=== PATIENT | female | born 1970 | race Caucasian/White ===

== ENCOUNTER → 2022-08-26 15:51 | Outpatient (CLI) | payer MEDICAID, SELFPAY ==
--- NOTE | 2022-08-26 15:57 | MM_ITS ---
PROCEDURE INFORMATION: Exam: MG Bilateral Screening 3D Mammography Exam date and time: 08/26/2022 3:51 PM Age: 51 years old Clinical indication: Screening examination TECHNIQUE: Imaging protocol: Bilateral Screening tomosynthesis and 2D mammography including computer-aided detection (CAD) when performed. COMPARISON: No relevant prior studies available. FINDINGS: MAMMOGRAPHY: Breast composition: The breasts are almost entirely fatty. Mass: None. Architectural distortion: None. Calcifications: No suspicious calcifications. Asymmetric density: None. Skin thickening: None. Axillary adenopathy: None. IMPRESSION: No mammographic evidence of malignancy. Annual screening is recommended unless otherwise clinically indicated. ASSESSMENT: BI-RADS Category 1: Negative
== END ==
PROVIDERS: PCP Nurse Practitioner Family; Visit Provider Nurse Practitioner Family
DX: Z12.31 Encounter for screening mammogram for malignant neoplasm of breast (principal)
CPT/HCPCS: 77063; 77067

== ENCOUNTER → 2022-11-05 10:53 | Outpatient (CLI) | payer MEDICAID, SELFPAY ==
--- NOTE | 2022-11-05 11:04 | XR_ITS ---
FINAL REPORT CLINICAL HISTORY: left knee pain FINDINGS: Left knee Three views were obtained. There is no acute fracture or dislocation. There are moderate degenerative changes. No joint effusion is identified. No soft tissue abnormality is identified. IMPRESSION: Moderate degenerative changes. Reviewed, Interpreted and Dictated by Car Orozco III, MD Transcribed by Meryl Oconnor Authenticated and [facility]
--- NOTE | 2022-11-05 11:04 | XR_ITS ---
FINAL REPORT CLINICAL HISTORY: right knne pain FINDINGS: Right knee Three views were obtained. There is no acute fracture or dislocation. There are [id number] degenerative changes. No joint effusion is identified. No soft tissue abnormality is identified. IMPRESSION: Mild to moderate degenerative changes. Reviewed, Interpreted and Dictated by Car Orozco III, MD Transcribed by Meryl Oconnor Authenticated and [facility]
== END ==
PROVIDERS: PCP Nurse Practitioner Family; Visit Provider Orthopaedic Surgery
DX: M25.561 Pain in right knee (principal); M25.562 Pain in left knee
CPT/HCPCS: 73562

== ENCOUNTER → 2023-02-11 13:34 | Outpatient (CLI) | payer MEDICAID, SELFPAY ==
--- NOTE | 2023-02-11 13:38 | XR_ITS ---
FINAL REPORT CLINICAL HISTORY: right knee pain FINDINGS: Left knee Three views were obtained. There is no acute fracture or dislocation. There are mild degenerative changes. No joint effusion is identified. No soft tissue abnormality is identified. IMPRESSION: Mild degenerative changes. Reviewed, Interpreted and Dictated by Car Orozco III, MD Transcribed by Meryl Oconnor Authenticated and [facility]
--- NOTE | 2023-02-11 13:38 | XR_ITS ---
FINAL REPORT CLINICAL HISTORY: left knee pain FINDINGS: Left knee Three views were obtained. There is no acute fracture or dislocation. There are mild degenerative changes. No joint effusion is identified. No soft tissue abnormality is identified. IMPRESSION: Mild degenerative changes. Reviewed, Interpreted and Dictated by Car Orozco III, MD Transcribed by Meryl Oconnor Authenticated and [facility]
== END ==
PROVIDERS: PCP Nurse Practitioner Family; Visit Provider Orthopaedic Surgery
DX: M25.561 Pain in right knee (principal); M25.562 Pain in left knee
CPT/HCPCS: 73562

== ENCOUNTER 2023-08-23 10:27 | Observation (INO) | payer MEDICAID, SELFPAY ==
[2023-08-23] VITALS (14 sets, daily range): BP systolic 78–142; BP diastolic 53–84; PULSE 91–106; RESP 16–22; TEMP 36.7–37.1; O2SAT 98–100; BMI 59.5; BMI 60.2
--- NOTE | 2023-08-23 10:33 | PC.NURSE ---
dr strickland at bedside
--- NOTE | 2023-08-23 10:42 | CT_ITS ---
PROCEDURE INFORMATION: Exam: CT Abdomen And Pelvis With Contrast Exam date and time: 08/23/2023 12:06 PM Age: 52 years old Clinical indication: Patient HX: Rash between breast and under breasts, rash around groin extending down bilateral legs , bb marker is where rash stops , PT stated rash has been on and off for years got worse on Friday and just keeps getting worse; Additional info: Severe rash groin TECHNIQUE: Imaging protocol: Computed tomography of the abdomen and pelvis with contrast. Radiation optimization: All CT scans at this facility use at least one of these dose optimization techniques: automated exposure control; mA and/or kV adjustment per patient size (includes targeted exams where dose is matched to clinical indication); or iterative reconstruction. Contrast material: ISOVUE; Contrast volume: 75 ml; Contrast route: IV; COMPARISON: No relevant prior studies available. FINDINGS: Lungs: No consolidation, lung nodules, or pleural effusions. Diaphragm: Small hiatal hernia. Liver: No mass. No evidence of fat deposition. No surrounding fluid. Gallbladder and bile ducts: No calcified stones or wall thickening. No ductal dilation. Pancreas: No masses. No ductal dilation. Spleen: No splenomegaly. No masses or surrounding fluid. Adrenal glands: No mass. Kidneys and ureters: No hydronephrosis, calcified stones, or masses. Stomach and bowel: No intestinal masses, bowel wall thickening, or abnormal luminal dilatation. Appendix: No evidence of appendicitis. Intraperitoneal space: No free air. No masses or significant fluid collection. Vasculature: No abdominal aortic aneurysm. No other significant abnormalities. Lymph nodes: No enlarged lymph nodes. Urinary bladder: No masses or asymmetric wall thickening. Reproductive: No abnormalities as visualized. Bones/joints: Osteophytes causes [id number] spinal stenosis at T11-12. Spinal stenosis at L4-L5 and L5-S1 due to concentric disc bulge osteophyte complexes, short pedicles, and facet hypertrophy. No acute fractures. No bone lesions. Old right sacrum fracture and partial fusion of the right SI joint. Soft tissues: Skin thickening and stranding of subcutaneous fat in both anterior thighs, left worse than right. Skin thickening continues superiorly into the groins and along the anterior abdominal wall, particularly in the skin folds of the anterior abdominal wall pannus. No abscesses or subcutaneous gas. No muscle masses. No abdominal wall defects. IMPRESSION: 1. Cellulitis along the lower abdominal wall extending into the anterior thighs, especially the proximal left thigh. No abscesses. No soft tissue gas. 2. No other acute findings in the abdomen and pelvis. 3. Iauc-gv-zschjicl spinal stenosis at T11-12, L4-L5, and L5-S1 as described above. 4. Old healed right sacrum fracture and partial fusion of the right sacroiliac joint.
--- NOTE | 2023-08-23 10:44 | HMH.EDGENADL ---
Discharge Plan Disposition Patient Disposition: Home, Self-Care Chief Complaint: Skin/Abscess/Foreign Body Prescriptions Prescriptions: No Action meloxicam 15 mg tablet 15 mg PO DAILY Qty: 30 2RF metoprolol tartrate 25 mg tablet PO hydroxyzine HCl 50 mg tablet PO fluticasone propionate 50 mcg/actuation spray,suspension intranasal Patient Comments: USE 1 SPRAY(S) IN EACH NOSTRIL ONCE DAILY azelastine 137 mcg (0.1 %) aerosol,spray intranasal Patient Comments: USE 1 SPRAY(S) IN EACH NOSTRIL TWICE DAILY NEEDED FOR RHINITIS nystatin [Nystop] 100,000 unit/gram powder topical docusate sodium 100 mg capsule PO Patient Comments: TAKE 1 CAPSULE BY MOUTH ONCE DAILY AT NIGHT NEEDED nystatin 100,000 unit/gram cream topical triamcinolone acetonide 0.1 % cream topical pimecrolimus [Elidel] 1 % cream topical hydroxyzine HCl 25 mg tablet PO Patient Comments: TAKE 1 TABLET BY MOUTH NIGHTLY montelukast 10 mg tablet PO simvastatin 40 mg tablet PO Patient Comments: TAKE 1 TABLET BY MOUTH NIGHTLY ferrous sulfate 325 mg (65 mg iron) tablet PO Patient Comments: TAKE 1 TABLET BY MOUTH ONCE DAILY cetirizine 10 mg tablet PO Referrals Follow up/Referrals: Reina Olmedo APRN [Primary Care Provider] - See instructions Clinical Impressions Clinical Impression: Candidal intertrigo, Cellulitis Instructions Patient Instructions: DI for Skin Abscess Discharge ED Provider: Buddy Mead General Adult HPI General Chief complaint: Skin/Abscess/Foreign Body Stated complaint: rash under stomach, breasts and armpits Time Seen by Provider: 08/23/23 10:30 Mode of Arrival: Wheelchair Source of Information: Patient Limitations: No Limitations Description of Symptoms (Recalled from ER Triage Doc. by RN): Patient reports rash under her abdomen folds, bilateral breasts, and right armpit for a few days. History of Present Illness HPI narrative: Patient is a 52-year-old female with past medical history of chronic intermittent intertriginous fungal infections who presents emergency department for evaluation of rash. Onset was acute, over the last few days, in her intertriginous areas about her groin, pannus, inframammary folds, right armpit. It is gotten progressively worse and this is the worst it has ever been . Patient has used nystatin cream at home which she ran out, is also covered in Vaseline for which symptoms have been refractory. She also has a history of insulin-dependent diabetes. Related Data Home Medications Medication Instructions Recorded Confirmed azelastine 137 mcg (0.1 %) nasal intranasal 05/22/23 05/22/23 spray aerosol cetirizine 10 mg tablet mg PO 05/22/23 05/22/23 docusate sodium 100 mg capsule mg PO 05/22/23 05/22/23 ferrous sulfate 325 mg (65 mg mg PO 05/22/23 05/22/23 iron) tablet fluticasone propionate 50 intranasal 05/22/23 05/22/23 mcg/actuation nasal spray,suspension hydroxyzine HCl 25 mg tablet mg PO 05/22/23 05/22/23 hydroxyzine HCl 50 mg tablet mg PO 05/22/23 05/22/23 metoprolol tartrate 25 mg tablet mg PO 05/22/23 05/22/23 montelukast 10 mg tablet mg PO 05/22/23 05/22/23 nystatin 100,000 unit/gram topical topical 05/22/23 05/22/23 cream nystatin 100,000 unit/gram topical topical 05/22/23 05/22/23 powder (Nystop) pimecrolimus 1 % topical cream applic topical 05/22/23 05/22/23 (Elidel) simvastatin 40 mg tablet mg PO 05/22/23 05/22/23 triamcinolone acetonide 0.1 % applic topical 05/22/23 05/22/23 topical cream Previous Rx's Medication Instructions Recorded meloxicam 15 mg tablet 15 mg PO DAILY #30 tabs 11/05/22 Allergies Allergy/AdvReac Type Severity Reaction Status Date / Time No Known Allergies Allergy Verified 04/29/23 10:36 [facility] Disclaimer: The information contained in this section may have been updated after the patient was seen, as this information can be updated by other users. Social History Smoking Status: Never smoker alcohol intake: never current occupational status: other Travel in the last 8 weeks: None ROS Obtained: Yes Systems reviewed as appropriate & no additional complaints except as documented Physical Exam General General appearance: alert and in no apparent distress Head Head exam: atraumatic and normocephalic Eye Eye exam: Present PERRL ENT ENT exam: Present mucous membranes moist Neck Neck exam: Present normal inspection Chest Chest inspection: Present normal inspection and symmetric chest wall rise Respiratory Respiratory exam: Absent respiratory distress Cardiovascular Cardiovascular exam: Present normal rhythm and tachycardia Abdominal Exam Abdominal exam: Present soft; Absent tenderness Extremities Exam Extremities exam: Present normal inspection Neurological Exam Neurological exam: Present alert Psychiatric Psychiatric exam: Present normal affect Skin Skin exam: Present warm and dry Medical Decision Making Hernan Inquiry Pt receiving controlled substance: No Vital Signs: 08/23/23 10:29 08/23/23 10:39 08/23/23 10:40 Temperature 98.2 F Temperature Source Oral Pulse Rate Pulse Rate [Radial] 106 H Respiratory Rate 16 Blood Pressure 78/53 L 142/84 H Blood Pressure [Right Arm] 142/84 H Blood Pressure Mean 59 94 Blood Pressure Mean [Right Arm] 103 Blood Pressure Source [Right Arm] Automatic Cuff Blood Pressure Position [Right Arm] Sitting 02 Sat by Pulse Oximetry 100 Oxygen Delivery Method Room Air 08/23/23 10:51 08/23/23 11:00 08/23/23 12:30 Temperature Temperature Source Pulse Rate 91 H Pulse Rate [Radial] Respiratory Rate Blood Pressure 131/84 137/60 109/64 L Blood Pressure [Right Arm] Blood Pressure Mean 94 99 Blood Pressure Mean [Right Arm] Blood Pressure Source [Right Arm] Blood Pressure Position [Right Arm] 02 Sat by Pulse Oximetry 100 Oxygen Delivery Method 08/23/23 12:30 08/23/23 13:00 Temperature Temperature Source Pulse Rate 93 H 94 H Pulse Rate [Radial] Respiratory Rate Blood Pressure 109/64 L 125/71 Blood Pressure [Right Arm] Blood Pressure Mean 79 84 Blood Pressure Mean [Right Arm] Blood Pressure Source [Right Arm] Blood Pressure Position [Right Arm] 02 Sat by Pulse Oximetry Oxygen Delivery Method Lab Data Lab Results 08/23/23 10:42: VBG pH 7.33, VBG pCO2 51.8 H, VBG pO2 26.3 L, VBG HCO3 26.6, VBG Total CO2 28.2 H, VBG O2 Saturation 47.7 L, VBG Base Excess 0.7, VBG Lactic Acid 3.2 H 08/23/23 10:50: WBC 11.3 H, RBC 5.41 H, Hgb 15.2, Hct 47.2 H, MCV 87.2, MCH 28.1, MCHC 32.3, RDW 14.8, Plt Count 334, MPV 7.5, Neut % (Auto) 76.1, Lymph % (Auto) 16.2, [place] % (Auto) 6.4, Eos % (Auto) 0.9, Baso % (Auto) 0.4, Neut # (Auto) 8.6 H, Lymph # (Auto) 1.8, [place] # (Auto) 0.7, Eos # (Auto) 0.1, Baso # (Auto) 0.1, Sodium 134 L, Potassium 4.1, Chloride 95 L, Carbon Dioxide 28, Anion Gap 15.1 H, BUN 13, Creatinine 1.00, Estimated Creat Clear 48, Estimated GFR 59, Est GFR ( Amer) 71, Glucose 196 H, Calcium 9.3, Total Bilirubin 1.0, AST 26, ALT 26, Alkaline Phosphatase 75, Total Protein 7.0, Albumin 3.7, Globulin 3.3 H, Albumin/Globulin Ratio 1.1 08/23/23 10:50 08/23/23 10:50 Orders (Tests/Meds): ED MEDICATIONS Discontinued Medications Generic Name Dose Route Start Last Admin Trade Name Freq PRN Reason Stop Dose Admin Lactated Ringer's 1,000 mls @ 999 mls/hr 08/23/23 10:43 08/23/23 10:54 Lactated Ringer's 1000 Ml Bag IV 08/23/23 11:43 999 mls/hr .Q1H1M ONE Administration Iopamidol 75 ml 08/23/23 12:11 08/23/23 12:12 Iopamidol-370 (76%);100ml Bottle IV 08/23/23 12:12 75 ml ONCE ONE Administration Nystatin 1 gm 08/23/23 10:51 08/23/23 11:09 Nystatin Topical Powder 30gm TP 08/23/23 10:52 1 gm ONCE ONE Administration Sodium Chloride 10 ml 08/23/23 12:11 08/23/23 12:12 Sodium Chloride 0.9% 10ml Syr (Rad Only) IV 08/23/23 12:12 10 ml ONCE ONE Administration Trimethoprim/Sulfamethoxazole 1 each 08/23/23 10:52 08/23/23 11:09 Sulfa/Trimethoprim 1 Tablet PO 08/23/23 10:53 1 each ONCE ONE Administration ORDERS Category Date Time Status CT abdomen pelvis w con Stat Cat Scan 08/23/23 10:42 Completed CBC w/Auto Diff [Complete Blood Count Auto Diff] Stat Lab 08/23/23 10:50 Completed CMP [Comprehensive Metabolic Panel] Stat Lab 08/23/23 10:50 Completed Blood Culture Stat Micro 08/23/23 12:31 Received VBG [Venous Blood Gas] Stat RT 08/23/23 10:42 Completed Medical Decision Narrative: In summary patient is a 52-year-old female past medical history described above presents emergency department for evaluation of severe intertrigo in the setting of insulin-dependent diabetes. Patient is hemodynamically stable nontoxic-appearing upon arrival, afebrile, slight tachycardia. Patient does not have any pain out of proportion to exam however does have a severe rash in all the intertriginous areas of her pelvis, pannus, inframammary folds, right axilla. Screening for deep space infection in the pelvis given body habitus will be conducted with CT abdomen pelvis IV contrast. Crystalloid bolus will be administered. Initial interventions include cleaning all wounds, drying all wounds, application of topical nystatin powder, oral Bactrim for MRSA coverage in the setting of intertrigo with severe skin breakdown. Workup reviewed by me, hematologic labs are nonactionable, compensated acid-base status, no critical electrolyte abnormalities, glucose 196, no MEERA, no significant leukocytosis. CT imaging no deep space infection, evidence of cellulitis is present in the anterior thighs, no abscesses or soft tissue gas. Given intertrigo, cellulitis, need for wound care case was discussed with hospital medicine who admit the patient to her service for continued evaluation at this time. Critical Care Critical Care Time Critical Care Time: No
[2023-08-23] MEDS: LACTATED RINGERS 1000ML 1,000 ML 999 ML IV (10:54)
[2023-08-23 11:07] LABS: VBG Base Excess 0.7 mmol/L (-2.4-2.3); VBG HCO3 26.6 mmol/L (23-30); VBG Oxygen Saturation 47.7 % (50-70); VBG PH 7.33 mmol/L (7.31-7.41); VBG PO2 26.3 mmol/L (28-40); VBG Total CO2 28.2 mmol/L (23-27)
[2023-08-23 11:09] LABS: Lactate Venous 3.2 mmol/L (0.4-2.0); VBG PCO2 51.8 mmol/L (35-51)
[2023-08-23] MEDS: SULFA/TRIMETHOPRIM 1 TABLET 1 EACH PO (11:09)
[2023-08-23] MEDS: NYSTATIN TOPICAL POWDER 30GM TP (11:09)
--- NOTE | 2023-08-23 11:19 | PC.NURSE ---
PT BATHED AT THIS TIME
[2023-08-23 11:24] LABS: Basophils # 0.1 K/mm3 (0-0.2); Basophils % 0.4 % (0.1-2.0); Eosinophils # 0.1 K/mm3 (0.0-0.4); Eosinophils % 0.9 % (0.1-12.0); Hematocrit 47.2 % (37.0-47.0); Hemoglobin 15.2 g/dL (12.2-16.2); Lymphocytes # 1.8 K/mm3 (0.7-4.5); Lymphocytes % 16.2 % (10-50); Mean Corpuscular HGB Conc 32.3 g/dL (31.8-35.4); Mean Corpuscular Hemoglobin 28.1 pg (27.0-31.2); Mean Corpuscular Volume 87.2 fl (81-99); Mean Platelet Volume 7.5 fl (7.4-10.4); Monocytes # 0.7 K/mm3 (0.1-1.0); Monocytes % 6.4 % (1.7-9.3); Neutrophils # 8.6 K/mm3 (1.8-7.8); Neutrophils % 76.1 % (37.0-80.0); Platelet Count 334 K/mm3 (142-424); Red Blood Count 5.41 M/mm3 (4.20-5.40); Red Cell Distribution Width 14.8 % (11.5-17.5); White Blood Count 11.3 K/mm3 (4.8-10.8)
[2023-08-23 11:28] LABS: Alanine Aminotransferase 26 U/L (12-78); Albumin Level 3.7 g/dl (3.5-5.0); Albumin/Globulin Ratio 1.1 (1.1-1.8); Alkaline Phosphatase 75 U/L (38-126); Anion Gap 15.1 mEq/L (5-15); Aspartate Amino Transferase 26 U/L (14-36); Blood Urea Nitrogen 13 mg/dl (7-17); Calcium 9.3 mg/dl (8.4-10.2); Carbon Dioxide 28 mmol/L (22.0-30.0); Chloride 95 mmol/L (98-107); Creatinine Clearance Estimated 48 mL/min (50-200); Estimated Glomerular Filt Rate 59 ml/min (>60); GFR (African American) 71 ML/MIN (>60); Globulin 3.3 g/dL (1.3-3.2); Glucose 196 mg/dl (74-100); Potassium 4.1 mmoL/L (3.5-5.1); Sodium 134 mmol/L (136-145)
--- NOTE | 2023-08-23 11:55 | PC.NURSE ---
Pt gone to RAD via wheelchair
--- NOTE | 2023-08-23 12:11 | PC.NURSE ---
PT RETURNED FROM CT
[2023-08-23] MEDS: SODIUM CHLORIDE 0.9% 10ML SYR (RAD ONLY) 10 ML IV (12:12)
[2023-08-23] MEDS: IOPAMIDOL-370 (76%);100ML BOTTLE 75 ML IV (12:12)
--- NOTE | 2023-08-23 13:35 | PC.NURSE ---
DR REBOLLEDO MESSAGING DR GRAHAM
--- NOTE | 2023-08-23 13:51 | PC.NURSE ---
DR REBOLLEDO AT BEDSIDE
--- NOTE | 2023-08-23 14:35 | PC.NURSE ---
DR REBOLLEDO SPEAKING WITH DR GRAHAM
--- NOTE | 2023-08-23 14:45 | PC.NURSE ---
DR GRAHAM AT BEDSIDE
--- NOTE | 2023-08-23 14:54 | PC.NURSE ---
HOT WALKER NOTIFIED OF ADMISSION
[2023-08-23 15:08] LABS: Reflex Lactic Add Lactic Reflex
--- NOTE | 2023-08-23 15:10 | PC.NURSE ---
REPORT CALLED TO JASSON DIAZ
--- NOTE | 2023-08-23 15:26 | PC.NURSE ---
arrived by w/c from ED
[2023-08-23] MEDS: VANCOMYCIN CONSULT REQUEST 1 EACH NOTAPPLIC (15:31)
[2023-08-23 15:58] LABS: Lactic Acid Follow Up (RFLX 1) 2.2 mmol/L (0.7-2.1)
[2023-08-23] MEDS: HEPARIN SODIUM 5,000 UNIT/ML VIAL 5000 UNIT SQ ×2 (16:16→23:57)
[2023-08-23] MEDS: VANCOMYCIN HCL 2,500 MG in 0.9 % SODIUM CHLORIDE 250 ML 125 MG IV (16:16)
[2023-08-23] MEDS: FLUCONAZOLE 100MG TABLET 200 MG PO (16:18)
--- NOTE | 2023-08-23 16:41 | PC.WOUNDNOTE ---
ABDOMINAL FOLD/INNER THIGH AREA UNDER BREASTS RIGHT ARMPIT
[2023-08-23] MEDS: humaLOG 100 UNITS/ML 10ML VIAL (SSI) SQ ×2 (16:52→20:19)
[2023-08-23 16:56] LABS: POC Glucose,Bedside 203 (70-110)
--- NOTE | 2023-08-23 17:04 | EXP.HP ---
History of Present Illness *Admission Date: 08/23/23 *Reason for visit:: skin rash *History of present illness: Patient is a 52-year-old female with morbid obesity, diabetes mellitus who presents to the hospital due to red rash in bilateral groin area and abdominal folds, under breast. According the patient her rash has been getting worse for past 1 week, she ran out of nystatin at home. Patient mentions she has associated itching, redness. She denies bleeding, fevers chills. Patient denied chest pain shortness of breath nausea vomiting diarrhea constipation dysuria fevers and chills. Patient mentions she has been treated for Odalis infection of her skin in the past and this episode is worse than her previous episodes. [facility] Disclaimer: The information contained in this section may have been updated after the patient was seen, as this information can be updated by other users. Social History Smoking Status: Never smoker alcohol intake: never current occupational status: other Travel in the last 8 weeks: None Review of Systems Review of Systems Review of systems:: pertinent systems reviewed and negative unless documented below Meds Home Medications and Allergies Home Medications Medication Instructions Recorded Confirmed Type meloxicam 15 mg tablet 15 mg PO DAILY #30 tabs 11/05/22 08/23/23 Rx azelastine 137 mcg (0.1 %) nasal 137 mcg intranasal NEEDED PRN 05/22/23 08/23/23 History spray aerosol ALLERGIES cetirizine 10 mg tablet 10 mg PO DAILY 05/22/23 08/23/23 History docusate sodium 100 mg capsule 100 mg PO DAILY 05/22/23 08/23/23 History ferrous sulfate 325 mg (65 mg 325 mg PO DAILY 05/22/23 08/23/23 History iron) tablet fluticasone propionate 50 50 mcg intranasal NEEDED PRN 05/22/23 08/23/23 History mcg/actuation nasal ALLERGIES spray,suspension hydroxyzine HCl 25 mg tablet 25 mg PO DAILY 05/22/23 08/23/23 History hydroxyzine HCl 50 mg tablet 50 mg PO DAILY SWEATING 05/22/23 08/23/23 History metoprolol tartrate 25 mg tablet 25 mg PO BID 05/22/23 08/23/23 History montelukast 10 mg tablet 10 mg PO DAILY 05/22/23 08/23/23 History nystatin 100,000 unit/gram topical 100,000 unit topical NEEDED PRN 05/22/23 08/23/23 History powder (Nystop) Itching pimecrolimus 1 % topical cream 1 applic topical NEEDED PRN 05/22/23 08/23/23 History (Elidel) Itching simvastatin 40 mg tablet 40 mg PO HS 05/22/23 08/23/23 History triamcinolone acetonide 0.1 % 0.1 applic topical NEEDED PRN 05/22/23 08/23/23 History topical cream Itching citalopram 40 mg tablet 40 mg PO DAILY 08/23/23 08/23/23 History duloxetine 60 mg capsule,delayed 60 mg PO BID 08/23/23 08/23/23 History release glimepiride 1 mg tablet 1 mg PO DAILY 08/23/23 08/23/23 History levothyroxine 137 mcg tablet 137 mcg PO DAILY 08/23/23 08/23/23 History losartan 50 mg-hydrochlorothiazide 50 tab PO BID 08/23/23 08/23/23 History 12.5 mg tablet omeprazole 40 mg capsule,delayed 40 mg PO DAILY 08/23/23 08/23/23 History release tirzepatide 5 mg/0.5 mL 7.5 mg SQ WEEKLY 08/23/23 08/23/23 History subcutaneous pen injector (Francisco) trazodone 50 mg tablet 50 mg PO NEEDED PRN Sleep 08/23/23 08/23/23 History New Prescriptions to Start Prescriptions: Allergies Allergy/AdvReac Type Severity Reaction Status Date / Time diaz AdvReac Mild Rash Verified 08/23/23 15:39 egg AdvReac Mild Rash Verified 08/23/23 15:39 hazelnut AdvReac Mild Rash Verified 08/23/23 15:39 milk AdvReac Mild Rash Verified 08/23/23 15:39 peanut AdvReac Mild Rash Verified 08/23/23 15:39 walnut AdvReac Mild Rash Verified 08/23/23 15:39 Exam Data for Last 24 hours Vital signs and Labs for Last 24 Hours: Temp Pulse Resp BP Pulse Ox O2 Del Method 98.1 F 101 H 22 139/81 98 Room Air 08/23/23 15:26 08/23/23 15:26 08/23/23 15:26 08/23/23 15:26 08/23/23 15:26 08/23/23 15:26 Laboratory Results - last 24 hr 08/23/23 10:42: VBG pH 7.33, VBG pCO2 51.8 H, VBG pO2 26.3 L, VBG HCO3 26.6, VBG Total CO2 28.2 H, VBG O2 Saturation 47.7 L, VBG Base Excess 0.7, VBG Lactic Acid 3.2 H 08/23/23 10:50: WBC 11.3 H, RBC 5.41 H, Hgb 15.2, Hct 47.2 H, MCV 87.2, MCH 28.1, MCHC 32.3, RDW 14.8, Plt Count 334, MPV 7.5, Neut % (Auto) 76.1, Lymph % (Auto) 16.2, [place] % (Auto) 6.4, Eos % (Auto) 0.9, Baso % (Auto) 0.4, Neut # (Auto) 8.6 H, Lymph # (Auto) 1.8, [place] # (Auto) 0.7, Eos # (Auto) 0.1, Baso # (Auto) 0.1, Sodium 134 L, Potassium 4.1, Chloride 95 L, Carbon Dioxide 28, Anion Gap 15.1 H, BUN 13, Creatinine 1.00, Estimated Creat Clear 48, Estimated GFR 59, Est GFR ( Amer) 71, Glucose 196 H, Calcium 9.3, Total Bilirubin 1.0, AST 26, ALT 26, Alkaline Phosphatase 75, Total Protein 7.0, Albumin 3.7, Globulin 3.3 H, Albumin/Globulin Ratio 1.1 08/23/23 15:40: Lactate 2.2 H 08/23/23 16:31: POC Glucose 203 H I & O for Last 24 hours: Intake & Output 08/20/23 08/21/23 08/22/23 08/23/23 23:59 23:59 23:59 23:59 Weight 139.054 kg Constitutional Constitutional: no acute distress *Routine HEENT Exam Head: Present normocephalic Eye: Present EOMI and PERRL ENT: Present mucous membranes moist *Routine Neck Exam Neck: Present supple; Absent lymphadenopathy *Routine Respiratory Exam Respiratory: Present CTA bilaterally *Routine Cardiovascular Exam Cardiovascular: Present RRR *Routine Abdominal Exam Abdominal: Present soft and normoactive bowel sounds; Absent tenderness *Routine Rectal Exam Rectal:: deferred *Routine Genitalia Exam Genitalia:: deferred *Routine Extremities Exam Extremities: Absent cyanosis, clubbing or edema *Routine Skin Exam Skin: Present warm and rash Comments: - Generalized skin rash in bilateral inguinal folds, abdominal folds, under breast, patient was examined in the presence of hazard mitigation officer *Routine Neurological Exam Neurological: Present alert and oriented X3 Assessment and Plan *Assessment and plan (1) Cellulitis: Status: Acute Category: Medical Code(s): L03.90 - Cellulitis, unspecified (2) Candidal intertrigo: Status: Acute Category: Medical Code(s): B37.2 - Candidiasis of skin and nail (3) Diabetes: Status: Acute Category: Medical Code(s): E11.9 - Type 2 diabetes mellitus without complications (4) HTN (hypertension): Status: Acute Category: Medical Code(s): I10 - Essential (primary) hypertension Plan Patient is a 52-year-old female with morbid obesity, diabetes mellitus who presents to the hospital due to red rash in bilateral groin area and abdominal folds, under breast. According the patient her rash has been getting worse for past 1 week, she ran out of nystatin at home. Patient mentions she has associated itching, redness. She denies bleeding, fevers chills. Patient denied chest pain shortness of breath nausea vomiting diarrhea constipation dysuria fevers and chills. Patient mentions she has been treated for Odalis infection of her skin in the past and this episode is worse than her previous episodes. Assessment and plan Cellulitis of bilateral inguinal area, anterior abdominal wall Candidal intertrigo Start IV vancomycin Start oral fluconazole Start topical ketoconazole As needed Benadryl for itching Diabetes mellitus Insulin sliding scale Morbid obesity Counseled on weight loss Hypertension Hyperlipidemia Resume home metoprolol, losartan/HCTZ, simvastatin DVT prophylaxis-heparin
[2023-08-23 17:45] LABS: Reflex Lactic (2 hrs) Add Lactic Reflex
[2023-08-23 18:09] LABS: Lactic Acid Follow up (RFLX 2) 1.8 mmol/L (0.7-2.1)
--- NOTE | 2023-08-23 18:28 | PC.NURSE ---
Pt new admit from ER. Patient started on abx and antifungals and states being in less pain than she was
[2023-08-23] MEDS: PRAVASTATIN 40MG TAB 80 MG PO (20:20)
[2023-08-23] MEDS: METOPROLOL TARTRATE 25MG TABLET 25 MG PO (20:21)
[2023-08-23] MEDS: PANTOPRAZOLE 40MG TABLET 40 MG PO (20:22)
[2023-08-23 21:05] LABS: POC Glucose,Bedside 215 (70-110)
[2023-08-24] MEDS: VANCOMYCIN HCL 1,000 MG in 0.9 % SODIUM CHLORIDE 250 ML 125 MG IV (03:32)
--- NOTE | 2023-08-24 03:46 | PC.NURSE ---
Pt is alert and oriented x4 and currently tolerating RA well. Pt is tolerating antibiotic therapy well and remains excoriated under bilateral abdominal folds and under breasts. Pt requested bed bath, staff x2 gave pt bath. Pt denies pain and needs, no other acute changes this shift.
[2023-08-24 04:00] VITALS: BP 103/56; PULSE 80; RESP 18; TEMP 37; O2SAT 96; BMI 60.2
[2023-08-24 05:56] LABS: POC Glucose,Bedside 141 (70-110)
[2023-08-24 07:24] LABS: Basophils # 0.1 K/mm3 (0-0.2); Basophils % 0.6 % (0.1-2.0); Eosinophils # 0.2 K/mm3 (0.0-0.4); Eosinophils % 2.6 % (0.1-12.0); Hematocrit 41.5 % (37.0-47.0); Lymphocytes # 2.5 K/mm3 (0.7-4.5); Lymphocytes % 27.4 % (10-50); Mean Corpuscular HGB Conc 32.8 g/dL (31.8-35.4); Mean Corpuscular Hemoglobin 28.2 pg (27.0-31.2); Mean Corpuscular Volume 85.9 fl (81-99); Mean Platelet Volume 8.1 fl (7.4-10.4); Monocytes # 0.7 K/mm3 (0.1-1.0); Monocytes % 7.1 % (1.7-9.3); Neutrophils # 5.8 K/mm3 (1.8-7.8); Neutrophils % 62.4 % (37.0-80.0); Platelet Count 308 K/mm3 (142-424); Red Blood Count 4.84 M/mm3 (4.20-5.40); Red Cell Distribution Width 14.9 % (11.5-17.5); White Blood Count 9.3 K/mm3 (4.8-10.8)
[2023-08-24 07:26] LABS: Chloride 100 mmol/L (98-107)
[2023-08-24 07:27] LABS: Sodium 133 mmol/L (136-145)
[2023-08-24 07:29] LABS: Blood Urea Nitrogen 12 mg/dl (7-17); Creatinine Clearance Estimated 51 mL/min (50-200); Estimated Glomerular Filt Rate 66 ml/min (>60); GFR (African American) 80 ML/MIN (>60)
[2023-08-24 07:30] LABS: Calcium 8.6 mg/dl (8.4-10.2); Carbon Dioxide 29 mmol/L (22.0-30.0); Glucose 137 mg/dl (74-100)
[2023-08-24 08:00] VITALS: BP 115/56; PULSE 89; RESP 17; TEMP 36.9; O2SAT 97
[2023-08-24] MEDS: HEPARIN SODIUM 5,000 UNIT/ML VIAL 5000 UNIT SQ (08:07)
[2023-08-24 08:25] LABS: Hemoglobin 13.7 g/dL (12.2-16.2)
[2023-08-24] MEDS: FLUTICASONE PROP 50MCG NASAL SPRAY 16GM 1 SPRAY NS (08:35)
[2023-08-24] MEDS: IRBESARTAN 75MG TABLET 75 MG PO (08:37)
[2023-08-24] MEDS: hydroCHLOROthiazide 12.5MG CAPSULE 12.5 MG PO (08:37)
[2023-08-24] MEDS: LEVOTHYROXINE 137MCG (0.137MG) TAB 137 MCG PO (08:37)
[2023-08-24] MEDS: FERROUS SULFATE 325MG TABLET 325 MG PO (08:37)
[2023-08-24] MEDS: CITALOPRAM 40MG TABLET 40 MG PO (08:37)
[2023-08-24] MEDS: METOPROLOL TARTRATE 25MG TABLET 25 MG PO (08:38)
[2023-08-24] MEDS: DULOXETINE 30MG CAPSULE.DR 60 MG PO (08:38)
[2023-08-24] MEDS: LORATADINE 10MG TABLET 10 MG PO (08:38)
--- NOTE | 2023-08-24 08:41 | P.CONPHA_ITS ---
Pharmacy Consult Date: 08/24/23 Time: 08:42 Referring provider: DR GRAHAM Reason for Consult:: VANCOMYCIN DOSING CONSULT Allergies Allergy/AdvReac Type Severity Reaction Status Date / Time diaz AdvReac Mild Rash Verified 08/23/23 15:39 egg AdvReac Mild Rash Verified 08/23/23 15:39 hazelnut AdvReac Mild Rash Verified 08/23/23 15:39 milk AdvReac Mild Rash Verified 08/23/23 15:39 peanut AdvReac Mild Rash Verified 08/23/23 15:39 walnut AdvReac Mild Rash Verified 08/23/23 15:39 Home Medications Medication Instructions Recorded Confirmed Type meloxicam 15 mg tablet 15 mg PO DAILY #30 tabs 11/05/22 08/23/23 Rx azelastine 137 mcg (0.1 %) nasal 137 mcg intranasal NEEDED PRN 05/22/23 08/23/23 History spray aerosol ALLERGIES cetirizine 10 mg tablet 10 mg PO DAILY 05/22/23 08/23/23 History docusate sodium 100 mg capsule 100 mg PO DAILY 05/22/23 08/23/23 History ferrous sulfate 325 mg (65 mg 325 mg PO DAILY 05/22/23 08/23/23 History iron) tablet fluticasone propionate 50 50 mcg intranasal NEEDED PRN 05/22/23 08/23/23 History mcg/actuation nasal ALLERGIES spray,suspension hydroxyzine HCl 50 mg tablet 100 mg PO HS 05/22/23 08/24/23 History metoprolol tartrate 25 mg tablet 25 mg PO BID 05/22/23 08/23/23 History montelukast 10 mg tablet 10 mg PO DAILY 05/22/23 08/23/23 History nystatin 100,000 unit/gram topical 100,000 unit topical NEEDED PRN 05/22/23 08/23/23 History powder (Nystop) Itching pimecrolimus 1 % topical cream 1 applic topical NEEDED PRN 05/22/23 08/23/23 History (Elidel) Itching simvastatin 40 mg tablet 40 mg PO HS 05/22/23 08/23/23 History triamcinolone acetonide 0.1 % 0.1 applic topical NEEDED PRN 05/22/23 08/23/23 History topical cream Itching citalopram 40 mg tablet 40 mg PO DAILY 08/23/23 08/23/23 History duloxetine 60 mg capsule,delayed 60 mg PO BID 08/23/23 08/23/23 History release glimepiride 1 mg tablet 1 mg PO DAILY 08/23/23 08/23/23 History levothyroxine 137 mcg tablet 137 mcg PO DAILY 08/23/23 08/23/23 History losartan 50 mg-hydrochlorothiazide 50 tab PO BID 08/23/23 08/23/23 History 12.5 mg tablet omeprazole 40 mg capsule,delayed 40 mg PO DAILY 08/23/23 08/23/23 History release tirzepatide 5 mg/0.5 mL 7.5 mg SQ WEEKLY 08/23/23 08/23/23 History subcutaneous pen injector (Francisco) trazodone 50 mg tablet 50 mg PO NEEDED PRN Sleep 08/23/23 08/23/23 History New Prescriptions to Start Prescriptions: Height: 1.52 m Weight: 139.253 kg Laboratory Results:: Laboratory Results - last 24 hr 08/23/23 10:42: VBG pH 7.33, VBG pCO2 51.8 H, VBG pO2 26.3 L, VBG HCO3 26.6, VBG Total CO2 28.2 H, VBG O2 Saturation 47.7 L, VBG Base Excess 0.7, VBG Lactic Acid 3.2 H 08/23/23 10:50: WBC 11.3 H, RBC 5.41 H, Hgb 15.2, Hct 47.2 H, MCV 87.2, MCH 28.1, MCHC 32.3, RDW 14.8, Plt Count 334, MPV 7.5, Neut % (Auto) 76.1, Lymph % (Auto) 16.2, [place] % (Auto) 6.4, Eos % (Auto) 0.9, Baso % (Auto) 0.4, Neut # (Auto) 8.6 H, Lymph # (Auto) 1.8, [place] # (Auto) 0.7, Eos # (Auto) 0.1, Baso # (Auto) 0.1, Sodium 134 L, Potassium 4.1, Chloride 95 L, Carbon Dioxide 28, Anion Gap 15.1 H, BUN 13, Creatinine 1.00, Estimated Creat Clear 48, Estimated GFR 59, Est GFR ( Amer) 71, Glucose 196 H, Calcium 9.3, Total Bilirubin 1.0, AST 26, ALT 26, Alkaline Phosphatase 75, Total Protein 7.0, Albumin 3.7, Globulin 3.3 H, Albumin/Globulin Ratio 1.1 08/23/23 15:40: Lactate 2.2 H 08/23/23 16:31: POC Glucose 203 H 08/23/23 17:50: Lactate 1.8 08/23/23 20:19: POC Glucose 215 H 08/24/23 05:43: POC Glucose 141 H 08/24/23 06:23: WBC 9.3, RBC 4.84, Hgb 13.7, Hct 41.5, MCV 85.9, MCH 28.2, MCHC 32.8, RDW 14.9, Plt Count 308, MPV 8.1, Neut % (Auto) 62.4, Lymph % (Auto) 27.4, [place] % (Auto) 7.1, Eos % (Auto) 2.6, Baso % (Auto) 0.6, Neut # (Auto) 5.8, Lymph # (Auto) 2.5, [place] # (Auto) 0.7, Eos # (Auto) 0.2, Baso # (Auto) 0.1, Sodium 133 L, Potassium 4.0, Chloride 100, Carbon Dioxide 29, Anion Gap 8.0, BUN 12, Creatinine 0.90, Estimated Creat Clear 51, Estimated GFR 66, Est GFR ( Amer) 80, Glucose 137 H D, Calcium 8.6 Assessment and Plan Assessment and plan all Dx Assessment and Plan for all problems:: Pharmacokinetic dosing service Objective: Age: 52 yo Serum creatinine: 0.9 mg/dL Height: 59.8 Inches Weight (kg): 139 Diagnosis: CELLULITIS Assessment: IBW (kg): 45.35 Dosing wt(kg): 139 Estimated Creatinine clearance (ml/min): 97.8 CRCL method: Cockcroft and Gault using adjusted body weight Drug selected: Vancomycin Vd (liters): 104.2 (factor used: 0.75 L/kg) Angelo (hr-1): 0.086 Half life (hrs): 8.06 CLvanco=?? 8.961 L/hr Recommended dose: 2500 mg Interval: 12 hrs Infusion time (hrs): 2.0 Predicted peak (mcg/mL): 34.2 Predicted trough (mcg/mL): 14.47 Total body weight is being used for vancomycin dosing. Recommendations: Give Vancomycin 2500 mg q 12 hrs with an expected Cpeak of 34.2 mcg/ml and an expected Ctrough of 14.47 mcg/ml AUC 0-24 /JAMES Data: JAMES 0.5 mcg/mL:?? AUC/JAMES:? 1115.9 JAMES 1.0 mcg/mL:?? AUC/JAMES:? 558.0 --------- JAMES 1.5 mcg/mL:?? AUC/JAMES:? 372.0 JAMES 2.0 mcg/mL:?? AUC/JAMES:? 279.0 Thank you for the consult
[2023-08-24] MEDS: KETOCONAZOLE 2% TP (08:50)
--- NOTE | 2023-08-24 10:24 | HMH.PHAINT1 ---
Pharmacy Intervention Comments: MEDICATION RECONCILIATION COMPLETE USING EXTERNAL PHARMACY FILL HISTORY.
[2023-08-24] MEDS: humaLOG 100 UNITS/ML 10ML VIAL (SSI) SQ (11:10)
[2023-08-24 11:20] LABS: POC Glucose,Bedside 227 (70-110)
--- NOTE | 2023-08-24 11:32 | P.DS_ITS ---
General Admission date:: 08/23/23 Discharge date: 08/24/23 HPI HPI HPI: Patient is a 52-year-old female with morbid obesity, diabetes mellitus who presents to the hospital due to red rash in bilateral groin area and abdominal folds, under breast. According the patient her rash has been getting worse for past 1 week, she ran out of nystatin at home. Patient mentions she has associated itching, redness. She denies bleeding, fevers chills. Patient denied chest pain shortness of breath nausea vomiting diarrhea constipation dysuria fevers and chills. Patient mentions she has been treated for Odalis infection of her skin in the past and this episode is worse than her previous episodes. Hospital Course Hospital Course Hospital Course: Patient is a 52-year-old female with morbid obesity, diabetes mellitus who presents to the hospital due to red rash in bilateral groin area and abdominal folds, under breast. According the patient her rash has been getting worse for past 1 week, she ran out of nystatin at home. Patient mentions she has associated itching, redness. She denies bleeding, fevers chills. Patient denied chest pain shortness of breath nausea vomiting diarrhea constipation dysuria fevers and chills. Patient mentions she has been treated for Odalis infection of her skin in the past and this episode is worse than her previous episodes. Cellulitis of bilateral inguinal area, anterior abdominal wall - improving Candidal intertrigo - improving Patient was started on IV vancomycin and oral fluconzole with significant improvement in rash, patient is transitioned to oral doxyccline and fluconzole with topical ketoconazole cream, prescriptions sent to patient pharmacy, patient will be discharged in stable condition, patient agreed with the discharge plan. On the date of discharge, the patient reported feeling stable. The patient was found not to be in any acute distress, and no new abnormalities on physical examination. Further, the patient expressed appropriate understanding of, and agreement with, the discharge recommendations, medications, and plan. Time spent 37 mins Exam Data for Last 24 hours Vital signs and Labs for Last 24 Hours: Temp Pulse Resp BP Pulse Ox O2 Del Method 98.4 F 89 17 115/56 L 97 Room Air 08/24/23 08:00 08/24/23 08:00 08/24/23 08:00 08/24/23 08:00 08/24/23 08:00 08/24/23 10:51 Laboratory Results - last 24 hr 08/23/23 10:50: WBC 11.3 H, RBC 5.41 H, Hgb 15.2, Hct 47.2 H, MCV 87.2, MCH 28.1 , MCHC 32.3, RDW 14.8, Plt Count 334, MPV 7.5, Neut % (Auto) 76.1, Lymph % (Auto) 16.2, [place] % (Auto) 6.4, Eos % (Auto) 0.9, Baso % (Auto) 0.4, Neut # (Auto) 8.6 H, Lymph # (Auto) 1.8, [place] # (Auto) 0.7, Eos # (Auto) 0.1, Baso # (Auto) 0.1, Sodium 134 L, Potassium 4.1, Chloride 95 L, Carbon Dioxide 28, Anion Gap 15.1 H, BUN 13, Creatinine 1.00, Estimated Creat Clear 48, Estimated GFR 59, Est GFR ( Amer) 71, Glucose 196 H, Calcium 9.3, Total Bilirubin 1.0, AST 26, ALT 26, Alkaline Phosphatase 75, Total Protein 7.0, Albumin 3.7, Globulin 3.3 H, Albumin/Globulin Ratio 1.1 08/23/23 15:40: Lactate 2.2 H 08/23/23 16:31: POC Glucose 203 H 08/23/23 17:50: Lactate 1.8 08/23/23 20:19: POC Glucose 215 H 08/24/23 05:43: POC Glucose 141 H 08/24/23 06:23: WBC 9.3, RBC 4.84, Hgb 13.7, Hct 41.5, MCV 85.9, MCH 28.2, MCHC 32.8, RDW 14.9, Plt Count 308, MPV 8.1, Neut % (Auto) 62.4, Lymph % (Auto) 27.4, [place] % (Auto) 7.1, Eos % (Auto) 2.6, Baso % (Auto) 0.6, Neut # (Auto) 5.8, Lymph # (Auto) 2.5, [place] # (Auto) 0.7, Eos # (Auto) 0.2, Baso # (Auto) 0.1, Sodium 133 L, Potassium 4.0, Chloride 100, Carbon Dioxide 29, Anion Gap 8.0, BUN 12, Creatinine 0.90, Estimated Creat Clear 51, Estimated GFR 66, Est GFR ( Amer) 80, Glucose 137 H D, Calcium 8.6 08/24/23 10:46: POC Glucose 227 H I & O for Last 24 hours: Intake & Output 08/21/23 08/22/23 08/23/23 08/24/23 23:59 23:59 23:59 23:59 Intake Total 600 / 840 720 / 720 Output Total 0 / 0 0 / 0 Balance 600 / 840 720 / 720 Weight 139.054 kg 139.253 kg Constitutional Constitutional: no acute distress *Routine HEENT Exam Head: Present normocephalic Eye: Present EOMI and PERRL ENT: Present mucous membranes moist *Routine Neck Exam Neck: Present supple; Absent lymphadenopathy *Routine Respiratory Exam Respiratory: Present CTA bilaterally *Routine Cardiovascular Exam Cardiovascular: Present RRR *Routine Abdominal Exam Abdominal: Present soft and normoactive bowel sounds; Absent tenderness *Routine Extremities Exam Extremities: Absent cyanosis, clubbing or edema *Routine Skin Exam Skin: Present warm; Absent rash *Routine Neurological Exam Neurological: Present alert and oriented X3 Results Data Completed and Pending Labs on day of discharge: Labs from last 24 hours 08/24/23 08/24/23 08/24/23 10:46 06:23 05:43 WBC 9.3 RBC 4.84 Hgb 13.7 Hct 41.5 MCV 85.9 MCH 28.2 MCHC 32.8 RDW 14.9 Plt Count 308 MPV 8.1 Neut % (Auto) 62.4 Lymph % (Auto) 27.4 [place] % (Auto) 7.1 Eos % (Auto) 2.6 Baso % (Auto) 0.6 Neut # (Auto) 5.8 Lymph # (Auto) 2.5 [place] # (Auto) 0.7 Eos # (Auto) 0.2 Baso # (Auto) 0.1 Sodium 133 L Potassium 4.0 Chloride 100 Carbon Dioxide 29 Anion Gap 8.0 BUN 12 Creatinine 0.90 Estimated Creat Clear 51 Estimated GFR 66 Est GFR ( Amer) 80 Glucose 137 H D POC Glucose 227 H 141 H Lactate Calcium 8.6 Total Bilirubin AST ALT Alkaline Phosphatase Total Protein Albumin Globulin Albumin/Globulin Ratio 08/23/23 08/23/2324 20:19 17:50 16:31 WBC RBC Hgb Hct MCV MCH MCHC RDW Plt Count MPV Neut % (Auto) Lymph % (Auto) [place] % (Auto) Eos % (Auto) Baso % (Auto) Neut # (Auto) Lymph # (Auto) [place] # (Auto) Eos # (Auto) Baso # (Auto) Sodium Potassium Chloride Carbon Dioxide Anion Gap BUN Creatinine Estimated Creat Clear Estimated GFR Est GFR ( Amer) Glucose POC Glucose 215 H 203 H Lactate 1.8 Calcium Total Bilirubin AST ALT Alkaline Phosphatase Total Protein Albumin Globulin Albumin/Globulin Ratio 08/23/23 08/23/23 15:40 10:50 WBC 11.3 H RBC 5.41 H Hgb 15.2 Hct 47.2 H MCV 87.2 MCH 28.1 MCHC 32.3 RDW 14.8 Plt Count 334 MPV 7.5 Neut % (Auto) 76.1 Lymph % (Auto) 16.2 [place] % (Auto) 6.4 Eos % (Auto) 0.9 Baso % (Auto) 0.4 Neut # (Auto) 8.6 H Lymph # (Auto) 1.8 [place] # (Auto) 0.7 Eos # (Auto) 0.1 Baso # (Auto) 0.1 Sodium 134 L Potassium 4.1 Chloride 95 L Carbon Dioxide 28 Anion Gap 15.1 H BUN 13 Creatinine 1.00 Estimated Creat Clear 48 Estimated GFR 59 Est GFR ( Amer) 71 Glucose 196 H POC Glucose Lactate 2.2 H Calcium 9.3 Total Bilirubin 1.0 AST 26 ALT 26 Alkaline Phosphatase 75 Total Protein 7.0 Albumin 3.7 Globulin 3.3 H Albumin/Globulin Ratio 1.1 DS: Diagnosis Discharge Diagnosis (1) Cellulitis: Status: Acute Code(s): L03.90 - Cellulitis, unspecified (2) Candidal intertrigo: Status: Acute Code(s): B37.2 - Candidiasis of skin and nail (3) Diabetes: Status: Acute Code(s): E11.9 - Type 2 diabetes mellitus without complications (4) HTN (hypertension): Status: Acute Code(s): I10 - Essential (primary) hypertension Meds Home Medications and Allergies Home Medications Medication Instructions Recorded Confirmed Type azelastine 137 mcg (0.1 %) nasal 1 spray intranasal BIDP PRN 05/22/23 08/24/23 History spray aerosol Allergy Symptoms cetirizine 10 mg tablet 10 mg PO DAILY 05/22/23 08/23/23 History docusate sodium 100 mg capsule 100 mg PO HSP PRN Constipation 05/22/23 08/24/23 History ferrous sulfate 325 mg (65 mg 325 mg PO DAILY 05/22/23 08/23/23 History iron) tablet fluticasone propionate 50 1 spray intranasal DAILY 05/22/23 08/24/23 History mcg/actuation nasal spray,suspension hydroxyzine HCl 50 mg tablet 100 mg PO HS 05/22/23 08/24/23 History metoprolol tartrate 25 mg tablet 25 mg PO BID 05/22/23 08/23/23 History montelukast 10 mg tablet 10 mg PO PM 05/22/23 08/24/23 History nystatin 100,000 unit/gram topical 100,000 unit topical BIDP PRN 05/22/23 08/24/23 History powder (Nystop) Itching simvastatin 40 mg tablet 40 mg PO HS 05/22/23 08/23/23 History citalopram 40 mg tablet 40 mg PO DAILY 08/23/23 08/23/23 History duloxetine 60 mg capsule,delayed 60 mg PO BID 08/23/23 08/23/23 History release glimepiride 1 mg tablet 1 mg PO DAILY 08/23/23 08/23/23 History levothyroxine 137 mcg tablet 137 mcg PO DAILYDM 08/23/23 08/24/23 History losartan 50 mg-hydrochlorothiazide 1 tab PO BID 08/23/23 08/24/23 History 12.5 mg tablet omeprazole 40 mg capsule,delayed 40 mg PO DAILY 08/23/23 08/23/23 History release trazodone 50 mg tablet 50 mg PO HSP PRN Sleep 08/23/23 08/24/23 History doxycycline hyclate 100 mg capsule 100 mg PO BID #14 caps 08/24/23 Rx ergocalciferol (vitamin D2) 1,250 1,250 mcg PO WEEKLY 08/24/23 08/24/23 History mcg (50,000 unit) capsule fluconazole 50 mg tablet 50 mg PO DAILY 7 days #7 tabs 08/24/23 Rx ketoconazole 2 % topical cream 1 applic topical DAILY 14 days #15 08/24/23 Rx grams tirzepatide 7.5 mg/0.5 mL 7.5 mg SQ WEEKLY 08/24/23 08/24/23 History subcutaneous pen injector (Francisco) New Prescriptions to Start Prescriptions: doxycycline hyclate Adrián,Irfan fluconazole Adrián,Irfan ketoconazole Adrián,Irfan Allergies Allergy/AdvReac Type Severity Reaction Status Date / Time diaz AdvReac Mild Rash Verified 08/23/23 15:39 egg AdvReac Mild Rash Verified 08/23/23 15:39 hazelnut AdvReac Mild Rash Verified 08/23/23 15:39 milk AdvReac Mild Rash Verified 08/23/23 15:39 peanut AdvReac Mild Rash Verified 08/23/23 15:39 walnut AdvReac Mild Rash Verified 08/23/23 15:39 Discharge Plan Disposition Patient Disposition: Home, Self-Care Condition: Good Follow up Plan Follow up with: Reina Olmedo APRN [Primary Care Provider] - 1 week (please call for appointment) Prescriptions/Medication Reconciliation: New ketoconazole 2 % Cream 1 applic topical DAILY 14 Days Qty: 15 1RF doxycycline hyclate 100 mg capsule 100 mg PO BID Qty: 14 0RF fluconazole 50 mg tablet 50 mg PO DAILY 7 Days Qty: 7 0RF Continued metoprolol tartrate 25 mg tablet 25 mg PO BID hydroxyzine HCl 50 mg tablet 100 mg PO HS fluticasone propionate 50 mcg/actuation spray,suspension 1 spray intranasal DAILY Patient Comments: USE 1 SPRAY(S) IN EACH NOSTRIL ONCE DAILY azelastine 137 mcg (0.1 %) aerosol,spray 1 spray intranasal BIDP PRN (Reason: Allergy Symptoms) Patient Comments: USE 1 SPRAY(S) IN EACH NOSTRIL TWICE DAILY NEEDED FOR RHINITIS nystatin [Nystop] 100,000 unit/gram powder 100,000 unit topical BIDP PRN (Reason: Itching) docusate sodium 100 mg capsule 100 mg PO HSP PRN (Reason: Constipation) Patient Comments: TAKE 1 CAPSULE BY MOUTH ONCE DAILY AT NIGHT NEEDED montelukast 10 mg tablet 10 mg PO PM simvastatin 40 mg tablet 40 mg PO HS Patient Comments: TAKE 1 TABLET BY MOUTH NIGHTLY ferrous sulfate 325 mg (65 mg iron) tablet 325 mg PO DAILY Patient Comments: TAKE 1 TABLET BY MOUTH ONCE DAILY cetirizine 10 mg tablet 10 mg PO DAILY levothyroxine 137 mcg tablet 137 mcg PO DAILYDM Patient Comments: TAKE 1 TABLET BY MOUTH ONCE DAILY citalopram 40 mg tablet 40 mg PO DAILY Patient Comments: TAKE 1 TABLET BY MOUTH ONCE DAILY trazodone 50 mg tablet 50 mg PO HSP PRN (Reason: Sleep) Patient Comments: TAKE 1/2 TO 1 (ONE-HALF TO ONE) TABLET BY MOUTH ONCE DAILY AT NIGHT NEEDED omeprazole 40 mg capsule,delayed release(DR/EC) 40 mg PO DAILY Patient Comments: TAKE 1 CAPSULE BY MOUTH ONCE DAILY glimepiride 1 mg tablet 1 mg PO DAILY Patient Comments: TAKE 1 TABLET BY MOUTH ONCE DAILY losartan-hydrochlorothiazide 50-12.5 mg tablet 1 tab PO BID Patient Comments: TAKE 1 TABLET BY MOUTH TWICE DAILY duloxetine 60 mg capsule,delayed release(DR/EC) 60 mg PO BID ergocalciferol (vitamin D2) 1,250 mcg (50,000 unit) capsule 1,250 mcg PO WEEKLY Mounjaro 7.5 mg/0.5 mL pen injector 7.5 mg SQ WEEKLY Problem Reconciliation Problems Reviewed?: Yes Patient Discharge Instructions ACTIVITY: Ambulate as tolerated DIET: continue same diet Patient Instructions: Cellulitis Providers Primary Care Provider: Reina Olmedo Admit Provider: Juanita Sampson Attending Provider: Juanita Sampson
--- NOTE | 2023-08-25 13:22 | CARE MANAGER ---
Called and spoke with patient regarding recent discharge. She stated that she is doing well, has started new medication and voiced no concerns at time of call.
== END 2023-08-24 13:45 | disposition home or self-care (01) ==
LOC: ER 13:47 → 2ND 15:06
PROVIDERS: Admitting Provider Internal Medicine; Emergency Provider Emergency Medicine; PCP Nurse Practitioner Family; Visit Provider Internal Medicine
DX: B37.2 Candidiasis of skin and nail (principal); L30.4 Erythema intertrigo; B35.6 Tinea cruris; E66.01 Morbid (severe) obesity due to excess calories; Z68.44 Body mass index [BMI] 60.0-69.9, adult; E11.9 Type 2 diabetes mellitus without complications; Z79.4 Long term (current) use of insulin; I10 Essential (primary) hypertension; E78.5 Hyperlipidemia, unspecified; Z79.899 Other long term (current) drug therapy; L03.311 Cellulitis of abdominal wall; L03.314 Cellulitis of groin
CPT/HCPCS: 36415; 74177; 80048; 80053; 82803; 82962; 83605; 85025; 87040; 99285; G0378; J3370; J7120; Q9967

== ENCOUNTER 2023-09-11 10:55 | Outpatient (CLI) | payer MEDICAID, SELFPAY ==
--- NOTE | 2023-09-11 11:00 | MM_ITS ---
PROCEDURE INFORMATION: Exam: MG Bilateral Screening 3D Mammography Exam date and time: 09/11/2023 10:45 AM Age: 52 years old Clinical indication: Screening examination TECHNIQUE: Imaging protocol: Bilateral Screening tomosynthesis and 2D mammography including computer-aided detection (CAD) when performed. COMPARISON: MG MM DIG SCREENING MAMM BI W/CAD 08/26/2022 3:51 PM FINDINGS: MAMMOGRAPHY: Breast composition: The breasts are almost entirely fatty. Mass: None. Architectural distortion: None. Calcifications: No suspicious calcifications. Asymmetric density: None. Skin thickening: None. Axillary adenopathy: None. IMPRESSION: No mammographic evidence of malignancy. Annual screening is recommended unless otherwise clinically indicated. ASSESSMENT: BI-RADS Category 1: Negative
== END 2023-09-11 23:59 | disposition home or self-care (01) ==
LOC: RAD 10:56
PROVIDERS: PCP Student in an Organized Health Care Education/Training Program; Visit Provider Student in an Organized Health Care Education/Training Program
DX: Z12.31 Encounter for screening mammogram for malignant neoplasm of breast (principal)
CPT/HCPCS: 77063; 77067

== ENCOUNTER 2023-10-07 10:37 | Outpatient (CLI) | payer MEDICAID, SELFPAY ==
[2023-10-07 17:54] LABS: Basophils # 0.1 K/mm3 (0-0.2); Basophils % 0.8 % (0.1-2.0); Eosinophils # 0.3 K/mm3 (0.0-0.4); Eosinophils % 4.5 % (0.1-12.0); Hematocrit 45.5 % (37.0-47.0); Hemoglobin 14.9 g/dL (12.2-16.2); Lymphocytes # 1.6 K/mm3 (0.7-4.5); Lymphocytes % 24.9 % (10-50); Mean Corpuscular HGB Conc 32.8 g/dL (31.8-35.4); Mean Corpuscular Hemoglobin 29.2 pg (27.0-31.2); Mean Platelet Volume 7.6 fl (7.4-10.4); Monocytes # 0.3 K/mm3 (0.1-1.0); Monocytes % 5.2 % (1.7-9.3); Neutrophils # 4.2 K/mm3 (1.8-7.8); Neutrophils % 64.5 % (37.0-80.0); Platelet Count 251 K/mm3 (142-424); Red Blood Count 5.11 M/mm3 (4.20-5.40); Red Cell Distribution Width 14.2 % (11.5-17.5); White Blood Count 6.6 K/mm3 (4.8-10.8)
[2023-10-07 18:24] LABS: Alanine Aminotransferase 23 U/L (12-78); Albumin Level 4.1 g/dl (3.5-5.0); Albumin/Globulin Ratio 1.5 (1.1-1.8); Alkaline Phosphatase 65 U/L (38-126); Anion Gap 12.9 mEq/L (5-15); Aspartate Amino Transferase 30 U/L (14-36); Bilirubin,Total 0.8 mg/dl (0.2-1.3); Blood Urea Nitrogen 20 mg/dl (7-17); Calcium 9.9 mg/dl (8.4-10.2); Carbon Dioxide 29 mmol/L (22.0-30.0); Chloride 100 mmol/L (98-107); Chol/HDL Ratio 3.4 (1-3.5); Cholesterol 148 mg/dl (140-200); Estimated Glomerular Filt Rate 66 ml/min (>60); GFR (African American) 80 ML/MIN (>60); Globulin 2.8 g/dL (1.3-3.2); Glucose 144 mg/dl (74-100); HDL Cholesterol 43 mg/dl (40-60); Potassium 4.9 mmoL/L (3.5-5.1); Sodium 137 mmol/L (136-145); Total Protein,Serum 6.9 g/dl (6.3-8.2); Triglycerides 230 mg/dl (30-150); VLDL Cholesterol 46 mg/dL (0-40)
[2023-10-07 18:35] LABS: Direct LDL Cholesterol 71.53 mg/dL (100-129)
[2023-10-07 18:55] LABS: Thyroid Stimulating Hormone 1.61 uIU/mL (0.465-4.68)
[2023-10-07 19:03] LABS: Hemoglobin A1C 6.3 % (4.0-6.0)
[2023-10-07 19:34] LABS: Iron 123 ug/dL (37-170)
[2023-10-07 19:44] LABS: Total Iron Binding Capacity 339 ug/dL (265-497)
[2023-10-07 20:11] LABS: Ferritin 27.8 ng/ml (6.24-137)
[2023-10-08 13:49] LABS: HIV (1&2) Antibody Rapid NON REACTIVE
[2023-10-09 06:14] LABS: HCV Ab Non Reactive (Non Reactive)
== END 2023-10-07 23:59 | disposition home or self-care (01) ==
LOC: LAB.DROPOF 10-08 10:38
PROVIDERS: PCP Student in an Organized Health Care Education/Training Program; Visit Provider Student in an Organized Health Care Education/Training Program
DX: E11.9 Type 2 diabetes mellitus without complications (principal); Z13.29 Encounter for screening for other suspected endocrine disorder; Z86.39 Personal history of other endocrine, nutritional and metabolic disease; Z11.59 Encounter for screening for other viral diseases; E55.9 Vitamin D deficiency, unspecified; Z11.4 Encounter for screening for human immunodeficiency virus [HIV]; Z79.85 Long-term (current) use of injectable non-insulin antidiabetic drugs; Z79.84 Long term (current) use of oral hypoglycemic drugs
CPT/HCPCS: 86803; 86703; 80050; 80053; 80061; 82306; 82728; 83036; 83540; 83550; 84443; 85025

== ENCOUNTER 2023-12-08 13:25 | Outpatient (CLI) | payer MEDICAID, SELFPAY ==
[2023-12-08 20:32] LABS: Basophils % 0.6 % (0.1-2.0); Eosinophils # 0.3 K/mm3 (0.0-0.4); Eosinophils % 4.1 % (0.1-12.0); Hematocrit 46.3 % (37.0-47.0); Hemoglobin 14.2 g/dL (12.2-16.2); Lymphocytes # 1.7 K/mm3 (0.7-4.5); Lymphocytes % 26.1 % (10-50); Mean Corpuscular HGB Conc 30.7 g/dL (31.8-35.4); Mean Corpuscular Hemoglobin 28.3 pg (27.0-31.2); Monocytes # 0.4 K/mm3 (0.1-1.0); Monocytes % 6.8 % (1.7-9.3); Neutrophils % 62.5 % (37.0-80.0); Platelet Count 261 K/mm3 (142-424); Red Blood Count 5.03 M/mm3 (4.20-5.40); Red Cell Distribution Width 14.8 % (11.5-17.5); White Blood Count 6.4 K/mm3 (4.8-10.8)
== END 2023-12-08 23:59 | disposition home or self-care (01) ==
LOC: LAB.DROPOF 12-09 11:12
PROVIDERS: PCP Student in an Organized Health Care Education/Training Program; Visit Provider Student in an Organized Health Care Education/Training Program
DX: L03.90 Cellulitis, unspecified (principal)
CPT/HCPCS: 85025

== ENCOUNTER 2024-01-06 13:28 | Outpatient (CLI) | payer MEDICAID, SELFPAY ==
[2024-01-06 19:25] LABS: Chol/HDL Ratio 4.2 (1-3.5); Cholesterol 157 mg/dl (140-200); HDL Cholesterol 37 mg/dl (40-60); Triglycerides 254 mg/dl (30-150); VLDL Cholesterol 51 mg/dL (0-40)
[2024-01-06 19:46] LABS: Direct LDL Cholesterol 86.38 mg/dL (100-129)
== END 2024-01-06 23:59 | disposition home or self-care (01) ==
LOC: LAB.DROPOF 01-08 11:09
PROVIDERS: PCP Student in an Organized Health Care Education/Training Program; Visit Provider Student in an Organized Health Care Education/Training Program
DX: E66.01 Morbid (severe) obesity due to excess calories (principal); E11.9 Type 2 diabetes mellitus without complications; Z68.44 Body mass index [BMI] 60.0-69.9, adult; Z79.84 Long term (current) use of oral hypoglycemic drugs
CPT/HCPCS: 80061

== ENCOUNTER 2024-02-10 12:57 | Outpatient (CLI) | payer MEDICAID, SELFPAY ==
[2024-02-10 14:17] LABS: Thyroid Stimulating Hormone 2.27 uIU/mL (0.465-4.68)
[2024-02-11 10:31] LABS: Estradiol <5.0 pg/mL (.); FSH 23.9 mIU/mL (.); Prolactin 5.7 ng/mL (3.6-25.2)
== END 2024-02-10 23:59 | disposition home or self-care (01) ==
LOC: LAB 12:57
PROVIDERS: PCP Student in an Organized Health Care Education/Training Program; Visit Provider Student in an Organized Health Care Education/Training Program
DX: R23.2 Flushing (principal); E11.9 Type 2 diabetes mellitus without complications; E03.9 Hypothyroidism, unspecified; Z79.85 Long-term (current) use of injectable non-insulin antidiabetic drugs; Z79.84 Long term (current) use of oral hypoglycemic drugs
CPT/HCPCS: 36415; 82533; 82670; 83001; 83036; 84146; 84443

== ENCOUNTER 2024-03-02 13:27 | Outpatient (CLI) | payer MEDICAID, SELFPAY ==
[2024-03-02 19:04] LABS: Basophils % 0.5 % (0.1-2.0); Eosinophils # 0.2 K/mm3 (0.0-0.4); Eosinophils % 4.1 % (0.1-12.0); Hematocrit 42.3 % (37.0-47.0); Hemoglobin 13.8 g/dL (12.2-16.2); Lymphocytes # 1.6 K/mm3 (0.7-4.5); Lymphocytes % 29.2 % (10-50); Mean Corpuscular HGB Conc 32.6 g/dL (31.8-35.4); Mean Corpuscular Hemoglobin 28.3 pg (27.0-31.2); Mean Corpuscular Volume 86.9 fl (81-99); Mean Platelet Volume 7.4 fl (7.4-10.4); Monocytes # 0.4 K/mm3 (0.1-1.0); Monocytes % 6.5 % (1.7-9.3); Neutrophils # 3.3 K/mm3 (1.8-7.8); Neutrophils % 59.6 % (37.0-80.0); Platelet Count 238 K/mm3 (142-424); Red Blood Count 4.87 M/mm3 (4.20-5.40); Red Cell Distribution Width 13.6 % (11.5-17.5); White Blood Count 5.5 K/mm3 (4.8-10.8)
[2024-03-02 19:56] LABS: Alanine Aminotransferase 24 U/L (12-78); Albumin/Globulin Ratio 1.7 (1.1-1.8); Alkaline Phosphatase 62 U/L (38-126); Aspartate Amino Transferase 39 U/L (14-36); Bilirubin,Total 0.5 mg/dl (0.2-1.3); Blood Urea Nitrogen 11 mg/dl (7-17); Calcium 9.6 mg/dl (8.4-10.2); Carbon Dioxide 30 mmol/L (22.0-30.0); Chloride 100 mmol/L (98-107); Estimated Glomerular Filt Rate 58 ml/min (>60); GFR (African American) 71 ML/MIN (>60); Globulin 2.4 g/dL (1.3-3.2); Glucose 133 mg/dl (74-100); Magnesium 1.8 mg/dl (1.6-2.3); Sodium 137 mmol/L (136-145); Total Protein,Serum 6.4 g/dl (6.3-8.2)
[2024-03-02 21:02] LABS: Vitamin B12 447 pg/mL (239-931)
[2024-03-02 21:03] LABS: Folate 5.71 ng/mL
== END 2024-03-02 23:59 | disposition home or self-care (01) ==
LOC: LAB.DROPOF 03-03 11:00
PROVIDERS: PCP Student in an Organized Health Care Education/Training Program; Visit Provider Student in an Organized Health Care Education/Training Program
DX: M79.671 Pain in right foot (principal); M79.672 Pain in left foot; I10 Essential (primary) hypertension; E66.01 Morbid (severe) obesity due to excess calories
CPT/HCPCS: 80053; 82607; 82746; 83735; 85025

== ENCOUNTER 2024-03-03 14:21 | Outpatient (CLI) | payer MEDICAID, SELFPAY ==
--- NOTE | 2024-03-03 14:25 | XR_ITS ---
FINAL REPORT CLINICAL HISTORY: pain feet COMPARISON: None FINDINGS: RIGHT FOOT: Three views of the right foot were obtained. There is no acute fracture or dislocation. There are mild degenerative changes. Calcaneal spurs are noted. There is no soft tissue abnormality. IMPRESSION: Degenerative changes without acute bony abnormality. Reviewed, Interpreted and Dictated by Car Orozco III, MD Transcribed by Melinda Merchant Authenticated and [facility]
--- NOTE | 2024-03-03 14:25 | XR_ITS ---
FINAL REPORT CLINICAL HISTORY: foot pain COMPARISON: None FINDINGS: LEFT FOOT: Three views of the left foot were obtained. There is no acute fracture or dislocation. There are mild degenerative changes. Calcaneal spurs are noted. There is no soft tissue abnormality. IMPRESSION: Degenerative changes without acute bony abnormality. Reviewed, Interpreted and Dictated by Car Orozco III, MD Transcribed by Melinda Merchant Authenticated and [facility]
== END 2024-03-03 23:59 | disposition home or self-care (01) ==
LOC: RAD 14:23
PROVIDERS: PCP Student in an Organized Health Care Education/Training Program; Visit Provider Student in an Organized Health Care Education/Training Program
DX: M79.671 Pain in right foot (principal); M79.672 Pain in left foot
CPT/HCPCS: 73630

== ENCOUNTER 2024-04-07 12:38 | Outpatient (CLI) | payer MEDICAID, SELFPAY ==
--- NOTE | 2024-04-07 12:41 | US_ITS ---
FINAL REPORT CLINICAL HISTORY: Decreased Pedal Pulses, HTN, HLD, DM, bilateral claudication, bilateral rest pain. FINDINGS: LOWER EXTREMITY SEGMENTAL PRESSURE MEASUREMENTS Pressure indices are as follows: RIGHT LOWER EXTREMITY: Lower thigh: 1.0 Calf: 1.0 Ankle, posterior tibial artery: 0.96 Ankle, dorsalis pedis: 1.1 Toe: 1.1 JACQUELYN: 1.1 LEFT LOWER EXTREMITY: Lower thigh: 1.3 Calf: 1.5 Ankle, posterior tibial artery: 1.4 Ankle, dorsalis pedis: 1.3 Toe: 0.82 JACQUELYN 1.4 IMPRESSION: No evidence of significant obstructive PVD. Reviewed, Interpreted and Dictated by Armond Galaviz MD Transcribed by Meryl Oconnor Authenticated and [facility]
== END 2024-04-07 23:59 | disposition home or self-care (01) ==
LOC: RT 12:39
PROVIDERS: PCP Student in an Organized Health Care Education/Training Program; Visit Provider Nurse Practitioner
DX: R09.89 Other specified symptoms and signs involving the circulatory and respiratory systems (principal)
CPT/HCPCS: 93923

== ENCOUNTER 2024-04-27 09:14 | Outpatient (CLI) | payer MEDICAID, SELFPAY ==
[2024-04-27 18:42] LABS: Chol/HDL Ratio 6.7 (1-3.5); Cholesterol 148 mg/dl (140-200); HDL Cholesterol 22 mg/dl (40-60); Triglycerides 266 mg/dl (30-150); VLDL Cholesterol 53 mg/dL (0-40)
[2024-04-27 18:53] LABS: Direct LDL Cholesterol 77.67 mg/dL (100-129)
[2024-04-27 19:34] LABS: Hemoglobin A1C 6.6 % (4.0-6.0)
== END 2024-04-27 23:59 | disposition home or self-care (01) ==
LOC: LAB.DROPOF 04-28 09:14
PROVIDERS: PCP Student in an Organized Health Care Education/Training Program; Visit Provider Student in an Organized Health Care Education/Training Program
DX: E11.9 Type 2 diabetes mellitus without complications (principal); Z79.84 Long term (current) use of oral hypoglycemic drugs
CPT/HCPCS: 80061; 83036

== ENCOUNTER 2024-05-18 19:09 | Outpatient (CLI) | payer MEDICAID, SELFPAY ==
[2024-05-18 17:56] LABS: Alanine Aminotransferase 23 U/L (12-78); Albumin Level 4.5 g/dl (3.5-5.0); Albumin/Globulin Ratio 1.7 (1.1-1.8); Alkaline Phosphatase 67 U/L (38-126); Anion Gap 15.2 mEq/L (5-15); Aspartate Amino Transferase 36 U/L (14-36); Bilirubin,Total 0.6 mg/dl (0.2-1.3); Blood Urea Nitrogen 17 mg/dl (7-17); Calcium 9.7 mg/dl (8.4-10.2); Carbon Dioxide 31 mmol/L (22.0-30.0); Chloride 93 mmol/L (98-107); Estimated Glomerular Filt Rate 47 ml/min (>60); GFR (African American) 57 ML/MIN (>60); Globulin 2.6 g/dL (1.3-3.2); Glucose 74 mg/dl (74-100); Potassium 4.2 mmoL/L (3.5-5.1); Sodium 135 mmol/L (136-145); Total Protein,Serum 7.1 g/dl (6.3-8.2)
[2024-05-18 18:12] LABS: 25-OH Vitamin D, Total 61.1 ng/mL (30-100)
[2024-05-19 14:05] LABS: Estradiol 14.9 pg/mL (.); FSH 34.2 mIU/mL (.); LH 21.2 mIU/mL (.); Progesterone 0.1 ng/mL (.)
== END 2024-05-18 23:59 | disposition home or self-care (01) ==
LOC: LAB.DROPOF 19:09
PROVIDERS: PCP Obstetrics & Gynecology; Visit Provider Obstetrics & Gynecology
DX: E34.9 Endocrine disorder, unspecified (principal); E55.9 Vitamin D deficiency, unspecified
CPT/HCPCS: 80053; 82306; 82670; 83001; 83002; 84144

== ENCOUNTER 2024-06-14 20:49 | Emergency (ER) | payer MEDICAID, SELFPAY ==
[2024-06-14 20:54] VITALS: BP 100/47; PULSE 69; RESP 18; O2SAT 100; BMI 54.1
--- NOTE | 2024-06-14 21:30 | CT_ITS ---
PROCEDURE INFORMATION: Exam: CT Abdomen And Pelvis With Contrast Exam date and time: 06/14/2024 10:15 PM Age: 53 years old Clinical indication: Other: Bariatric surgery March, luq rlq pain nausea TECHNIQUE: Imaging protocol: Computed tomography of the abdomen and pelvis with contrast. Radiation optimization: All CT scans at this facility use at least one of these dose optimization techniques: automated exposure control; mA and/or kV adjustment per patient size (includes targeted exams where dose is matched to clinical indication); or iterative reconstruction. Contrast material: ISOVUE; Contrast volume: 75 ml; Contrast route: IV; COMPARISON: CT ABDOMEN PELVIS W CON 08/23/2023 12:06 PM FINDINGS: Liver: Mild fatty infiltration. Measures 19 No mass. Gallbladder and biliary ducts: Normal. No calcified stones. No ductal dilation. Pancreas: Normal. No ductal dilation. Spleen: Normal. No splenomegaly. Adrenal glands: Normal. No mass. Kidneys and ureters: Normal. No hydronephrosis. Stomach and bowel: Postoperative changes No obstruction. No mucosal thickening. Appendix: No evidence of appendicitis. Intraperitoneal space: Unremarkable. No free air. No significant fluid collection. Vasculature: Unremarkable. No abdominal aortic aneurysm. Lymph nodes: Unremarkable. No enlarged lymph nodes. Urinary bladder: Unremarkable as visualized. Reproductive: Unremarkable as visualized. Bones/joints: Chronic right sacral fracture. No acute fracture. No acute osseous finding. Soft tissues: Unremarkable. IMPRESSION: 1. No acute findings identified. 2. Hepatomegaly with fatty infiltration.
--- NOTE | 2024-06-14 21:32 | HMH.EDGENADL ---
Discharge Plan Disposition Patient Disposition: Home, Self-Care Prescriptions Prescriptions: New ondansetron 4 mg tablet,disintegrating 4 mg PO Q8H PRN (Reason: nausea and vomiting) 4 Days Qty: 12 0RF No Action docusate sodium 100 mg capsule 100 mg PO HSP PRN (Reason: Constipation) Patient Comments: TAKE 1 CAPSULE BY MOUTH ONCE DAILY AT NIGHT NEEDED aspirin [Adult Low Dose Aspirin] 81 mg tablet,delayed release (DR/EC) 81 mg PO DAILY (DME) lancets [FreeStyle Lancets] 28 gauge misc See Rx Instructions .ROUTE .MEDSUPPLY Qty: 100 Patient Comments: USE 1 LANCET TO CHECK GLUCOSE THREE TIMES DAILY TO CHECK BLOOD SUGAR Rx Instructions: As directed ketoconazole 2 % shampoo topical Patient Comments: MASSAGE IN SCALP 1-2 TIMES WEEKLY IN THE SHOWER. LET SIT FOR 5 MINUTES BEFORE RINSING triamcinolone acetonide 0.1 % ointment topical Patient Comments: APPLY OINTMENT TOPICALLY TO AFFECTED AREA TWICE DAILY FOR 2 WEEKS NEEDED FOR FLARES STOP ONE WEEK REPEAT NEEDED FOR FLARES levocetirizine 5 mg tablet 5 mg PO DAILY glimepiride 1 mg tablet 1 mg PO DAILY Qty: 90 3RF hydroxyzine HCl 50 mg tablet 100 mg PO HS 90 Days Qty: 180 2RF levothyroxine 137 mcg tablet 137 mcg PO DAILYDM Qty: 90 1RF losartan-hydrochlorothiazide 50-12.5 mg tablet 1 tab PO BID 90 Days Qty: 180 3RF montelukast 10 mg tablet 10 mg PO PM Qty: 90 2RF omeprazole 40 mg capsule,delayed release(DR/EC) 40 mg PO DAILY Qty: 90 2RF simvastatin 40 mg tablet 40 mg PO HS Qty: 90 3RF lamotrigine [Lamictal] 25 mg tablet 50 mg PO DAILY Qty: 60 1RF trazodone 100 mg tablet 100 mg PO DAILY Qty: 30 2RF fluticasone propionate 50 mcg/actuation spray,suspension 1 spray intranasal DAILY Qty: 16 2RF (DME) FreeStyle Lite Strips Strip See Rx Instructions .ROUTE .MEDSUPPLY Qty: 100 3RF Rx Instructions: As directed - Check BG BID and prn terbinafine HCl [Antifungal (terbinafine)] 1 % cream 1 applic topical BID 30 Days Qty: 30 3RF citalopram 40 mg tablet 40 mg PO DAILY Qty: 90 0RF duloxetine 60 mg capsule,delayed release(DR/EC) 60 mg PO BID 90 Days Qty: 180 1RF ferrous sulfate 325 mg (65 mg iron) tablet 325 mg PO BID Qty: 180 0RF metoprolol tartrate 25 mg tablet 25 mg PO BID Qty: 180 2RF ketoconazole 2 % cream 1 applic topical DAILY 14 Days Qty: 15 1RF nystatin [Nystop] 100,000 unit/gram powder 100,000 unit topical TID 14 Days Qty: 42 1RF Referrals Follow up/Referrals: Noemi Godwin APRN [Primary Care Provider] - See instructions Activity Restrictions/Add. Instructions Additional Instructions/Restrictions: At this time it was felt you are safe to be discharged home. If new or worsening symptoms please do not hesitate to return the emergency department. Please take your medications as prescribed. Clinical Impressions Clinical Impression: Dehydration, mild, MEERA (acute kidney injury), Abdominal pain Instructions Patient Instructions: DI for Acute Abdominal Pain Print Language Print Language: Romanian Discharge ED Provider: Buddy Mead General Adult HPI General Chief complaint: Abdominal Pain Stated complaint: nausea, no appetite, abd cramps Time Seen by Provider: 06/14/24 21:12 Mode of Arrival: Ambulatory Source of Information: Patient and Relative Description of Symptoms (Recalled from ER Triage Doc. by RN): Pt presents for evaluation of nausea, no appetite, and abdominal cramping x 1 month. pt had weight loss surgery in march. History of Present Illness HPI narrative: Patient is a 53-year-old female past medical history of [id number] diabetes, previous intertrigo, bariatric surgery in March in [place] who presents emergency department for evaluation of multiple complaints. First complaint is that she has had intermittent abdominal cramping left upper and right lower quadrant, nausea, intermittent vomiting that is nonbloody. She has been compliant with her recommended diet. No chest pain, no cough, no shortness of breath reported. With respect to complain #2 she has a rash in her intertriginous area of her pannus that is causing her significant discomfort that she wants evaluated. No other acute complaints at this time Please note that above description of symptoms, in this electronic medical record under categorization of recalled from ER triage doctor by RN are reflective of an initial nursing assessment, however, is not reflective of my full history and physical exam that was personally taken and clarified. Consequentially, this preceding description of symptoms, which may include the patient's categorized chief complaint in the EMR, do not reflect my personal clinical impression, and the ultimate description of history of present illness and patient stated complaints should be deferred to this section of the note. Unless stated otherwise or congruent with this section of the note, additional signs, symptoms, or incongruence should be interpreted as inaccurate with my clinical impression. Related Data Home Medications ?Medication ?Instructions ?Recorded ?Confirmed docusate sodium 100 mg capsule 100 mg PO HSP PRN Constipation 05/22/23 05/18/24 aspirin 81 mg tablet,delayed 81 mg PO DAILY 09/08/23 05/18/24 release (Adult Low Dose Aspirin) lancets 28 gauge (FreeStyle #100 ea 09/08/23 05/18/24 Lancets) ketoconazole 2 % shampoo topical 05/14/24 05/18/24 levocetirizine 5 mg tablet 5 mg PO DAILY 05/14/24 05/18/24 triamcinolone acetonide 0.1 % topical 05/14/24 05/18/24 topical ointment Previous Rx's ?Medication ?Instructions ?Recorded blood sugar diagnostic (FreeStyle #100 ea 10/17/23 Lite Strips) fluticasone propionate 50 1 spray intranasal DAILY #16 grams 10/17/23 mcg/actuation nasal spray,suspension terbinafine HCl 1 % topical cream 1 applic topical BID fungus 30 03/26/24 (Antifungal (terbinafine)) days #30 grams lamotrigine 25 mg tablet (Lamictal) 50 mg (2 x 25 mg) PO DAILY #60 tabs 05/05/24 trazodone 100 mg tablet 100 mg PO DAILY #30 tabs 05/05/24 glimepiride 1 mg tablet 1 mg PO DAILY #90 tabs 05/14/24 hydroxyzine HCl 50 mg tablet 100 mg (2 x 50 mg) PO HS 90 days 05/14/24 #180 tabs levothyroxine 137 mcg tablet 137 mcg PO DAILYDM #90 tabs 05/14/24 losartan 50 mg-hydrochlorothiazide 1 tab PO BID 90 days #180 tabs 05/14/24 12.5 mg tablet montelukast 10 mg tablet 10 mg PO PM #90 tabs 05/14/24 omeprazole 40 mg capsule,delayed 40 mg PO DAILY #90 caps 05/14/24 release simvastatin 40 mg tablet 40 mg PO HS #90 tabs 05/14/24 citalopram 40 mg tablet 40 mg PO DAILY #90 tabs 06/14/24 duloxetine 60 mg capsule,delayed 60 mg PO BID 90 days #180 caps 06/14/24 release ferrous sulfate 325 mg (65 mg 325 mg PO BID #180 tabs 06/14/24 iron) tablet ketoconazole 2 % topical cream 1 applic topical DAILY 14 days #15 06/14/24 grams metoprolol tartrate 25 mg tablet 25 mg PO BID #180 tabs 06/14/24 nystatin 100,000 unit/gram topical 100,000 unit topical TID Itching 06/14/24 powder (Nystop) 14 days #42 grams ondansetron 4 mg disintegrating 4 mg PO Q8H PRN nausea and 06/14/24 tablet vomiting 4 days #12 tabs Allergies Allergy/AdvReac Type Severity Reaction Status Date / Time diaz AdvReac Mild Rash Verified 05/18/24 14:39 egg AdvReac Mild Rash Verified 05/18/24 14:39 hazelnut AdvReac Mild Rash Verified 05/18/24 14:39 milk AdvReac Mild Rash Verified 05/18/24 14:39 peanut AdvReac Mild Rash Verified 05/18/24 14:39 walnut AdvReac Mild Rash Verified 05/18/24 14:39 [facility] Disclaimer: The information contained in this section may have been updated after the patient was seen, as this information can be updated by other users. Medical History (Updated 06/14/24 @ 23:56 by Buddy Mead MD) HLD (hyperlipidemia) Hypothyroid GERD (gastroesophageal reflux disease) Anxiety and depression Vitamin D deficiency BMI 50.0-59.9, adult Seasonal allergies Right knee pain Left knee pain Candidal intertrigo Cellulitis Diabetes HTN (hypertension) Surgical History (Updated 05/18/24 @ 14:52 by Luis Fernando Dominguez, SKY) History of bariatric surgery H/O skin graft History of partial hysterectomy Family History Brother Asthma Diabetes Grandfather Asthma Cancer Mother Coronary artery disease Grandmother Diabetes Other Heart attack Hyperlipidemia Hypertension Thyroid disorder Social History Smoking Status: Never smoker how long ago did patient quit smokin years ago alcohol intake: never substance use type: denies use current occupational status: unemployed Travel in the last 8 weeks: None marital status: legally service: No long-term: No current occupational exposures/hazards: No Hx Recent Travel: No Have you lived/traveled outside US in past 30 days?: No Contact w/someone who lives/traveled outside US past 30 days?: No Exposure to someone with infectious disease in past 14 days?: No Do you have a fever (greater than 100.4 F or 38 C)?: No Have you tested positive for COVID-19: No Exposed to someone with COVID-19 in past 14 days?: No Do you have a sore throat?: No Do you have a cough?: No Do you have any weakness?: No Do you have any diarrhea?: No Are you experiencing any unusual bleeding?: No Do you have any muscle aches/pain?: No Do you have any abdominal pain?: No Are you experiencing loss of taste or smell?: No Other Medical History Have you received the Flu Vaccine for this season: No Have you received the Pneumonia Vaccine: No ROS Obtained: Yes Systems reviewed as appropriate & no additional complaints except as documented Physical Exam General General appearance: alert and in no apparent distress Head Head exam: atraumatic and normocephalic Eye Eye exam: Present PERRL ENT ENT exam: Present mucous membranes moist Neck Neck exam: Present normal inspection Chest Chest inspection: Present normal inspection and symmetric chest wall rise Respiratory Respiratory exam: Present normal lung sounds bilaterally; Absent respiratory distress Cardiovascular Cardiovascular exam: Present regular rate and normal rhythm Abdominal Exam Abdominal exam: Present soft, tenderness (Mild, left upper quadrant) and other (Intertriginous area in the suprapubic area under the pannus has beefy red macerated rash with satellite lesions, no crepitus) Extremities Exam Extremities exam: Present normal inspection Neurological Exam Neurological exam: Present alert Psychiatric Psychiatric exam: Present normal affect Skin Skin exam: Present warm and dry Medical Decision Making Medical Records Screening: Per USPSTF and CDC recommendations, given the prevalence of disease in our region, it is our hospital?s policy to screen for HIV and viral Hepatitis for all patients aged 18 and over and those with ongoing risk factors. [place] Inquiry Pt receiving controlled substance: No Vital Signs: 06/14/24 20:54 Temperature Source Oral Pulse Rate [Right] 69 Respiratory Rate 18 Blood Pressure [Right Arm] 100/47 L Blood Pressure Mean [Right Arm] 64 Blood Pressure Source [Right Arm] Automatic Cuff Blood Pressure Position [Right Arm] Sitting 02 Sat by Pulse Oximetry 100 Oxygen Delivery Method Room Air Lab Data Lab Results 06/14/24 21:10: WBC 8.5, RBC 4.88, Hgb 11.0 L, Hct 36.6 L, MCV 75.0 L, MCH 22.5 L, MCHC 30.1 L, RDW 15.6, Plt Count 341, MPV 9.8, Neut % (Auto) 76.4, Lymph % (Auto) 12.0, [place] % (Auto) 9.6 H, Eos % (Auto) 1.3, Baso % (Auto) 0.2, Neut # (Auto) 6.5, Lymph # (Auto) 1.0, [place] # (Auto) 0.8, Eos # (Auto) 0.1, Baso # (Auto) 0.0, Sodium 132 L, Potassium 3.9, Chloride 91 L, Carbon Dioxide 32 H, Anion Gap 12.9, BUN 23 H, Creatinine 1.70 H, Estimated Creat Clear 28, Estimated GFR 32 L, Est GFR ( Amer) 38 L, Glucose 128 H, Calcium 9.6, Total Bilirubin 0.8, AST 35, ALT 26, Alkaline Phosphatase 76, Troponin I < 0.01, Total Protein 7.4, Albumin 4.5, Globulin 2.9, Albumin/Globulin Ratio 1.6, Lipase 187 06/14/24 21:10 06/14/24 21:10 Orders (Tests/Meds): ED MEDICATIONS Discontinued Medications Generic Name Dose Route Start Last Admin Trade Name Freq PRN Reason Stop Dose Admin Lactated Ringer's 1,000 mls @ 999 mls/hr 06/14/24 22:08 06/14/24 22:16 Lactated Ringer's 1000 Ml Bag IV 06/14/24 23:08 999 mls/hr .Q1H1M ONE Administration Iopamidol 75 ml 06/14/24 22:17 06/14/24 22:22 Iopamidol-370 (76%);100ml Bottle IV 06/14/24 22:18 75 ml ONCE ONE Administration Nystatin 30 gm 06/14/24 21:30 06/14/24 21:48 Nystatin Topical Powder 30gm TP 06/14/24 21:31 30 gm ONCE ONE Administration Ondansetron HCl 4 mg 06/14/24 21:30 06/14/24 21:38 Ondansetron 4mg/2ml Vial IV 06/14/24 21:31 4 mg ONCE ONE Administration Sodium Chloride 10 ml 06/14/24 22:17 06/14/24 22:22 Sodium Chloride 0.9% 10ml Syr (Rad Only) IV 06/14/24 22:18 10 ml ONCE ONE Administration ORDERS Category Date Time Status CT abdomen pelvis w con Stat Cat Scan 06/14/24 21:30 Completed CBC w/Auto Diff [Complete Blood Count Auto Diff] Stat Lab 06/14/24 21:10 Completed CMP [Comprehensive Metabolic Panel] Stat Lab 06/14/24 21:10 Completed Lipase Stat Lab 06/14/24 21:10 Completed Trop I [Troponin I] Stat Lab 06/14/24 21:10 Completed ECG Data Tracing #1: Independently interpreted by me rate is 64, rhythm is regular, axis is normal, no ST elevation in anatomical contiguous leads, QTc 441. Medical Decision Narrative: In summary patient is a 53-year-old female past medical history described above presents emerged part for evaluation multiple complaints. With respect to the rash, she has classic intertrigo that is likely candidal in origin with a mix of moisture and skin breakdown. For this intertriginous area will be cleaned, dried, copious nystatin powder will be applied. With respect to her intermittent abdominal pain and cramping and nausea given that she had recent bariatric surgery, workup we conducted with hematologic labs, CT abdomen pelvis IV contrast. Initial inventions include Zofran. Initial workup reviewed by me, hematologic labs are nonactionable, no significant leukocytosis, mild anemia. Patient has mild MEERA which will be repleted with 1 L crystalloid, mild hyponatremia and hypochloremia consistent with decreased p.o. intake of vomiting. Initial troponin undetectably low. CT imaging no acute findings. Patient underwent crystalloid bolus and p.o. trial bedside with successful. Given this patient is appropriate for outpatient management at this time with close follow-up with her bariatric surgeon versus PCP later this week to recheck her labs will be discharged with a course of Zofran was given return precautions. Critical Care Critical Care Time Critical Care Time: No
--- NOTE | 2024-06-14 21:35 | PC.NURSE ---
Accompanied physician to examin rash in perineal area. Large area of moist excoriated skin noted under panis. Towel used to absorb moisture
[2024-06-14] MEDS: ONDANSETRON 4MG/2ML VIAL 4 MG IV (21:38)
--- NOTE | 2024-06-14 21:38 | ECG_ITS ---
APPROVED REPORT Exam: Resting ECG HR:64 bpm ECG Measurements Heart Rate 64 AXES OK 228 P 69 QRSd 96 QRS -7 QT 432 T 10 QTc 441 Conclusion SINUS RHYTHM WITH FIRST DEGREE AV BLOCK LOW QRS VOLTAGE IN PRECORDIAL LEADS [QRS DEFLECTION < 1.0 mV IN CHEST LEADS] POSSIBLE ANTERIOR MYOCARDIAL INFARCTION , PROBABLY OLD [30 ms Q WAVE IN V3/V4, OR R < 0.2 mV IN V4] INFERIOR MYOCARDIAL INFARCTION , PROBABLY OLD [40+ ms Q WAVE AND/OR ST/T ABNORMALITY IN II/aVF] ABNORMAL ECG Electronically signed by : DORIS REBOLLEDO, 06/15/2024 00:15:17
[2024-06-14] MEDS: NYSTATIN TOPICAL POWDER 30GM 30 GM TP (21:48)
[2024-06-14 21:58] LABS: Basophils % 0.2 % (0.1-2.0); Eosinophils # 0.1 K/mm3 (0.0-0.4); Eosinophils % 1.3 % (0.1-12.0); Hematocrit 36.6 % (37.0-47.0); Mean Corpuscular HGB Conc 30.1 g/dL (31.8-35.4); Mean Corpuscular Hemoglobin 22.5 pg (27.0-31.2); Mean Platelet Volume 9.8 fl (7.4-10.4); Monocytes # 0.8 K/mm3 (0.1-1.0); Monocytes % 9.6 % (1.7-9.3); Neutrophils # 6.5 K/mm3 (1.8-7.8); Neutrophils % 76.4 % (37.0-80.0); Platelet Count 341 K/mm3 (142-424); Red Blood Count 4.88 M/mm3 (4.20-5.40); Red Cell Distribution Width 15.6 % (11.5-17.5); White Blood Count 8.5 K/mm3 (4.8-10.8)
[2024-06-14 22:00] LABS: Albumin Level 4.5 g/dl (3.5-5.0); Chloride 91 mmol/L (98-107); Sodium 132 mmol/L (136-145)
[2024-06-14 22:01] LABS: Potassium 3.9 mmoL/L (3.5-5.1)
[2024-06-14 22:03] LABS: Alanine Aminotransferase 26 U/L (12-78); Alkaline Phosphatase 76 U/L (38-126); Anion Gap 12.9 mEq/L (5-15); Aspartate Amino Transferase 35 U/L (14-36); Bilirubin,Total 0.8 mg/dl (0.2-1.3); Blood Urea Nitrogen 23 mg/dl (7-17); Carbon Dioxide 32 mmol/L (22.0-30.0); Creatinine Clearance Estimated 28 mL/min (50-200); Estimated Glomerular Filt Rate 32 ml/min (>60); GFR (African American) 38 ML/MIN (>60)
[2024-06-14 22:04] LABS: Albumin/Globulin Ratio 1.6 (1.1-1.8); Calcium 9.6 mg/dl (8.4-10.2); Globulin 2.9 g/dL (1.3-3.2); Glucose 128 mg/dl (74-100); Lipase 187 U/L (23-300); Total Protein,Serum 7.4 g/dl (6.3-8.2)
[2024-06-14 22:16] LABS: Troponin I < 0.01 ng/ml (0.00-0.034)
[2024-06-14] MEDS: LACTATED RINGERS 1000ML 1,000 ML 999 ML IV (22:16)
[2024-06-14] MEDS: SODIUM CHLORIDE 0.9% 10ML SYR (RAD ONLY) 10 ML IV (22:22)
[2024-06-14] MEDS: IOPAMIDOL-370 (76%);100ML BOTTLE 75 ML IV (22:22)
[2024-06-15] MEDS: FLUCONAZOLE 100MG TABLET 200 MG PO (00:13)
[2024-06-15 00:17] VITALS: BP 111/53; PULSE 66; RESP 20; TEMP 36.8; O2SAT 94
== END 2024-06-15 00:24 | disposition home or self-care (01) ==
PROVIDERS: Emergency Provider Emergency Medicine; PCP Nurse Practitioner Family
DX: R10.12 Left upper quadrant pain (principal); R10.31 Right lower quadrant pain; R11.2 Nausea with vomiting, unspecified; R21 Rash and other nonspecific skin eruption; B37.2 Candidiasis of skin and nail; N17.9 Acute kidney failure, unspecified; E86.0 Dehydration; E03.9 Hypothyroidism, unspecified; E78.5 Hyperlipidemia, unspecified; K21.9 Gastro-esophageal reflux disease without esophagitis; E55.9 Vitamin D deficiency, unspecified; F43.10 Post-traumatic stress disorder, unspecified; F41.9 Anxiety disorder, unspecified; E11.9 Type 2 diabetes mellitus without complications; Z98.84 Bariatric surgery status
CPT/HCPCS: 74177; 80053; 83690; 84484; 85025; 93005; 96361; 96374; 99285; J2405; J7120; Q9967

== ENCOUNTER 2024-07-23 16:06 | Outpatient (CLI) | payer MEDICAID, SELFPAY ==
[2024-07-23 16:58] LABS: Basophils % 0.3 % (0.1-2.0); Eosinophils % 0.4 % (0.1-12.0); Hematocrit 40.2 % (37.0-47.0); Hemoglobin 12.6 g/dL (12.2-16.2); Lymphocytes # 1.2 K/mm3 (0.7-4.5); Mean Corpuscular HGB Conc 31.3 g/dL (31.8-35.4); Mean Corpuscular Hemoglobin 23.6 pg (27.0-31.2); Mean Corpuscular Volume 75.1 fl (81-99); Monocytes # 0.6 K/mm3 (0.1-1.0); Monocytes % 6.4 % (1.7-9.3); Neutrophils # 7.1 K/mm3 (1.8-7.8); Neutrophils % 79.5 % (37.0-80.0); Nucleated Red Blood Cells # 0 10^3/uL; Nucleated Red Blood Cells % 0 %; Platelet Count 407 K/mm3 (142-424); Red Blood Count 5.35 M/mm3 (4.20-5.40); Red Cell Distribution Width 20.3 % (11.5-17.5); Red Cell Distribution Width-SD 52.6 fL
[2024-07-23 17:54] LABS: Albumin Level 4.3 g/dl (3.5-5.0); Chloride 100 mmol/L (98-107); Sodium 137 mmol/L (136-145)
[2024-07-23 17:57] LABS: Alanine Aminotransferase 27 U/L (12-78); Albumin/Globulin Ratio 1.7 (1.1-1.8); Amylase 57 U/L (30-110); Aspartate Amino Transferase 31 U/L (14-36); Blood Urea Nitrogen 11 mg/dl (7-17); Carbon Dioxide 18 mmol/L (22.0-30.0); Estimated Glomerular Filt Rate 66 ml/min (>60); GFR (African American) 80 ML/MIN (>60); Globulin 2.5 g/dL (1.3-3.2); Total Protein,Serum 6.8 g/dl (6.3-8.2)
[2024-07-23 17:58] LABS: Alkaline Phosphatase 73 U/L (38-126); Bilirubin,Total 0.6 mg/dl (0.2-1.3); Calcium 9.8 mg/dl (8.4-10.2); Glucose 120 mg/dl (74-100); Lipase 284 U/L (23-300)
[2024-07-23 18:28] LABS: Thyroid Stimulating Hormone 4.55 uIU/mL (0.465-4.68)
[2024-07-23 20:09] LABS: Hemoglobin A1C 4.6 % (4.0-6.0)
== END 2024-07-23 23:59 | disposition home or self-care (01) ==
LOC: LAB.DROPOF 07-26 11:25
PROVIDERS: PCP Nurse Practitioner Family; Visit Provider Nurse Practitioner Family
DX: R11.10 Vomiting, unspecified (principal); E11.9 Type 2 diabetes mellitus without complications; E03.9 Hypothyroidism, unspecified
CPT/HCPCS: 80053; 82150; 83036; 83690; 84443; 85025

== ENCOUNTER 2024-08-04 09:36 | Outpatient (CLI) | payer MEDICAID, SELFPAY ==
--- NOTE | 2024-08-04 09:40 | FL_ITS ---
FINAL REPORT CLINICAL HISTORY: NAUSEA AND VOMITTING 2:51 fl 3331.65 dap FINDINGS: UPPER GI WITH SMALL BOWEL FOLLOW-THROUGH HISTORY: Epigastric pain with nausea and vomiting. Fluoroscopy Time: 2 minutes 51 seconds Dose Area Product (DAP): 3331.65 Gy/m2. Number of Images: 15 images. PROCEDURE: The patient ingested barium. Spot and overhead films were obtained. Additional barium was administered for a SBFT. FINDINGS: The esophagus is normal. There is no hiatal hernia. There is no gastroesophageal reflux. Marked esophageal dysmotility was demonstrated during the exam. The patient is status post gastric bypass. The pouch empties appropriately. No gastric gastric fistula is identified. IMPRESSION: Marked esophageal dysmotility. Postoperative changes of gastric bypass without obstruction or fistula identified. SBFT: The non profit financial controller film is normal. There is no evidence of obstruction. The mucosal fold pattern is normal. The terminal ileum is normal. IMPRESSION: Normal small bowel follow-through. Reviewed, Interpreted and Dictated by Raj Duarte MD Transcribed by YOBANY Kenney Authenticated and [facility]
[2024-08-04] MEDS: E-Z-GASII EFFERVESCENT GRANULES;1PK 1 EACH PO (12:01)
[2024-08-04] MEDS: BARIUM SULFATE(LIQUID E-Z-PAQUE);355ML BOTTLE 355 ML PO (12:01)
[2024-08-04] MEDS: BARIUM SULFATE(E-Z-AC);1900ML BOTTLE 1900 ML PO (12:01)
== END 2024-08-04 23:59 | disposition home or self-care (01) ==
LOC: RAD 09:37
PROVIDERS: PCP Nurse Practitioner Family; Visit Provider Nurse Practitioner Family
DX: K22.89 Other specified disease of esophagus (principal); R11.2 Nausea with vomiting, unspecified; Z98.84 Bariatric surgery status
CPT/HCPCS: 74246; 74248

== ENCOUNTER 2024-10-08 09:25 | Outpatient (CLI) | payer MEDICAID, SELFPAY ==
--- OUTSIDE RECORDS SUMMARY | 2023-07-21 12:59 | XMS_ITS | Continuity of Care Document ---
Author Organization [facility] Address [address] [place] [address] Phone Care Team Providers Care Associate Store Director Name Role Phone Higinio DIETRICH, PATTERN WORKER, Dayanna Unavailable Unavai lable Allergies, Adverse Reactions, Alerts Substance Reaction Status Criticality green diaz Active No Information tomato Active No Information tree and shrub pollen Active No Inf ormation TREE POLLEN-RED MAPLE Active No Inf ormation egg Active No Information milk Active No Information peanut Active No Information Medications Medication Instructions Dosage Effective Dates (start - stop) Status Comments Losartan Potassium-HCTZ 50-12.5 MG Oral Tablet Take 1 tablet by mouth twice daily - Active Nystatin 248870 UNIT/GM External Cream APPLY CREAM TOPICALLY TO AFFECTED AREA(S) TWICE DAILY - Active duloxetine 60 mg capsule,delayed release take 1 capsule by oral route 2 times every day 60 MG - Active metoprolol tartrate 25 mg tablet take 1 tablet by oral route 2 times every day 25 MG - Active Vitamin D3 125 mcg (5,000 unit) tablet take 1 tablet by oral route every day 1 tablet - Active triamcinolone acetonide 0.1 % topical cream apply by topical route 2 times every day a thin layer to the affected area(s) 0.00 - Active nystatin 100,000 unit/gram topical powder apply by topical route 2 times every day to the affected area(s) 0.00 - Active simvastatin 40 mg tablet take 1 tablet by oral route every day in the evening 40 MG - Active fluticasone propionate 50 mcg/actuation nasal spray,suspension spray 1 - 2 spray by intranasal route every day in each nostril as needed 50-100 MCG - Active citalopram 40 mg tablet take 1 tablet by oral route every day 40 MG - Active cetirizine 10 mg tablet take 1 tablet by oral route every day 10 MG - Active ferrous sulfate 325 mg (65 mg iron) tablet take 1 tablet by oral route every day 325 MG - Active Dulcolax Stool Softener (docusate) 100 mg capsule take 1 capsule by oral route every day at bedtime as needed 100 MG - Active Levothyroxine Sodium 125 MCG Oral Tablet Take 1 tablet by mouth once daily - Active FreeStyle Lite Strips To be used to chec k BS 5x daily - Active glimepiride 1 mg tablet take 1 tablet by oral route every day 1 MG - Active hydroxyzine HCl 50 mg tablet take 2 tablets at bedtime - Active Olopatadine HCl 0.1 % Ophthalmic Solution INSTILL 1 DROP BY OPHTHALMIC ROUTE 2 TIMES A DAY INTO AFFECTED EYE(S) AT AN INTERVAL OF 6-8 HOURS NEEDED - Active omeprazole 40 mg capsule,delayed release take 1 capsule by oral route every day before a meal 40 MG - Active aspirin 81 mg chewable tablet chew 1 tablet by oral route every day 81 MG - Active azelastine 137 mcg (0.1 %) nasal spray aerosol spray 2 spray by intranasal route 2 times every day in each nostril 274 MCG - Active montelukast 10 mg tablet take 1 tablet by oral route every day in the evening 10 MG - Active trazodone 50 mg tablet take 1 tablet by oral route every day at bedtime only when CPAP is in use. - Active Advance Directives Directive Yes / No Effective Date File Name No Information Encounters Encounter Description Practice Location Reason(s) For Visit Diagnoses Date Provider [facility], [address] [place], [address], [place] tel:[phone] [place] No Information 4 Sylvester Dayanna. [address], [place], [id number] , [place]. tel: [phone] [facility], [address] [place] [address], [facility], tel:[phone] 72 [facility] [place] No Information 3 Sylvester Dayanna. [address], [place], [id number] , [place]. tel: [phone] [facility], [address] [place] [address], [facility], tel:[phone] 72 [facility] [place] No Information 3 Sylvester Dayanna. [address], [place], [id number] , [place]. tel: [phone] [facility], [address] [place] [address], [facility], tel:[phone] 72 [facility] [place] follow up on labs (chief complaint) ObesityType 2 diabetes mellitus without complicationsEssential (primary) hypertensionHypothyroid ism, unspecifiedIron deficiency anemiaBody mass index [BMI] 50.0-59.9, adultPain in left knee 3 Sylvester Dayanna. [address], [place], [id number] , [place]. tel: [phone] [facility], [address] [place] [address], [facility], [place] tel:[phone] 72 [facility] [place] No Information 3 Sylvester Dayanna. [address], [place], [id number] , [place]. 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 [address], [place], [id number] , [place]. tel:[phone] [facility], [address] [place] [address], [facility], tel:[phone] 72 [facility] [place] No Information 3 Sylvester Dayanna. [address], [place], [id number] , [place]. tel:[phone] [facility], [address] [place] [address], [facility], tel:[phone] 72 [facility] [place] No Information 3 Sylvester Dayanna. [address], [place], [id number] , . tel:[phone] [facility], [address] [place] [address], [facility], tel:[phone] 72 [facility] No Information 3 Sylvester Dayanna. [address], [place], [id number] , [place]. tel: [facility], [address] [place] [address], [facility], tel:[phone] 72 [facility] No Information 3 Sylvester Dayanna. [address], [place], [id number] , [place]. tel:[phone] [facility], [address] [place] [address], [facility], tel:[phone] 72 [facility] [place] establish care (chief complaint) Encounter for screening for depressionEncounter for screening examination for other mental health and behavioral disordersAnxietyDepress ion, unspecifiedEssential (primary) hypertensionHypothyroid ism, unspecifiedType 2 diabetes mellitus without complicationsVitamin D deficiency, unspecifiedGERD disease w/ esophagitis, w/o bleedingObesityBody mass index [BMI] 50.0-59.9, adultEncntr screen mammogram for malignant neoplasm of breast Higinio Alan. [address], [place], [id number] , . [phone] Family History Family Member Type Diagnosis Age At Onset Maternal grandmother Problem passed from old age/natural causes Brother Problem Alive and well Mother Problem Hypercholesterolemia Paternal grandmother Problem (finding) Brother Problem Asthma Brother Problem Hypertension Mother Problem Alive and well Mother Problem Hypertension Maternal grandfather Problem (finding) Brother Problem Hypercholesterolemia Maternal grandfather Problem Cancer, lung Mother Problem Cardiovascular disease Brother Problem Diabetes mellitus Paternal grandfather Problem (finding) Immunizations Vaccine Date Status Comments Influenza Quad Inj administered Source: O ther Registry COVID Bivalent (PFR 12+) administered Ashley rce: Other Registry PCV20 administered Source: Other R egistry COVID Ricky-Suc (PFR 12+) administered Ashley rce: Other Registry COVID-19 mRNA (PFR) administered Source: Other Registry Influenza Quad Inj administered Source: O ther Registry COVID-19 mRNA (PFR) administered Source: Other Registry COVID-19 mRNA (PFR) administered Source: Other Registry Influenza Quad Inj administered Source: O ther Registry Hep A, adult administered Source: Other R egistry Hep A, adult administered Source: Other R egistry Influenza Quad Inj administered Source: O ther Registry PPV23 administered Source: Other R egistry Payers Payer name Insurance type Covered republican ID Authoriza tion(s) [facility]- Medicaid [id number] [facility]- Medicaid [employer] Wrap Payer [id number] Hc- [place] [id number] Social History Type Description Quantity Date Captured Comments Sex Female Smoking Status No Information Sexual Orientation Straight or heterosexual July Gender Identity Female Chief Complaint And Reason For Visit No Information Plan Of Treatment Date Type Action Status Goal Hemoglobin A1C. Due on due Goal Foot exam. Due on due Goal Taking Statin Medication. Du e on due Goal ASCVD 10 year risk. Due on A due Goal Urine microalbumin. Due on A due Goal Dilated eye exam. Due on Oct due Goal GFR. Due on due Goal Dental exam. Due on due Goal Hep B (). Due on due Goal HIV screen due Goal Vitamin B12. Due on due Goal Pap/HPV testing. Due on due Goal Obtain Height, Weight, and B AL. Due on due Goal Unhealthy drug use screening due Goal Diabetes screening. Due on due Goal CBC. Due on due Goal PAP. Due on due Goal Tobacco Use Screening. Due o n due Goal FOBT. Due on due Goal Mammogram. Due on due Goal Generalized Anxi ety Disorder - 7 (BOLIVAR-7). Due on due Goal Hepatitis C Screening due Goal HPV testing. Due on due Goal TSH. Due on due Goal CMP. Due on due Goal Follow up Plan f or abnormal BMI (Less than 18.5, greater than 25). Due on due Goal Drug Abuse Scree charles Test (DAST-10). Due on due Goal Vitamin D. Due on due Goal FIT. Due on due Goal Influenza vaccine. Due on due Goal Depression screening. Due on due Goal Pneumococcal vaccine due Goal Lipid panel. Due on due Goal Obtain blood Pressure. Due o n due Goal ECG. Due on due Goal Urinalysis. Due on due Goal Lifestyle education regardin g diet completed Goal ASCVD 10 year risk. Due on due Goal Dilated eye exam. Due on Sep due Goal Hep B (). Due on due Goal Hemoglobin A1C. Due on due Goal Foot exam. Due on due Goal Dental exam. Due on due Goal GFR. Due on due Goal Taking Statin Medication. Du e on due Goal Urine microalbumin. Due on due Goal CMP. Due on due Goal HPV testing. Due on due Goal Diabetes screening. Due on due Goal CBC. Due on due Goal PAP. Due on due Goal Tobacco Use Screening. Due o n due Goal HIV screen due Goal Vitamin B12. Due on 024 due Goal Hepatitis C Screening due Goal Follow up Plan f or abnormal BMI (Less than 18.5, greater than 25). Due on due Goal Generalized Anxi ety Disorder - 7 (BOLIVAR-7). Due on due Goal Unhealthy drug use screening due Goal Vitamin D. Due on due Goal Drug Abuse Scree charles Test (DAST-10). Due on due Goal Tobacco Use Cessation Counse ling. Due on due Goal HPV. Due on due Goal Obtain Height, Weight, and B AL. Due on due Goal Pap/HPV testing. Due on due Goal FIT. Due on due Goal TSH. Due on due Goal FOBT. Due on due Goal Mammogram. Due on due Goal Influenza vaccine. Due on due Goal Pneumococcal vaccine due Goal Depression screening. Due on due Goal ECG. Due on due Goal Obtain blood Pressure. Due o n due Goal Urinalysis. Due on due Goal Lipid panel. Due on 028 due Goal Obtain blood Pressure. Due o n due Goal Dental exam. Due on due Goal Taking Statin Medication. Du e on due Goal Dilated eye exam. Due on Sep due Goal Hemoglobin A1C. Due on due Goal ECG. Due on due Goal ASCVD 10 year risk. Due on due Goal Foot exam. Due on due Goal Urine microalbumin. Due on due Goal Hep B (). Due on due Goal HIV screen. Due on due Goal Vitamin D. Due on due Goal Generalized Anxi ety Disorder - 7 (BOLIVAR-7). Due on due Goal HPV. Due on due Goal PAP. Due on due Goal CMP. Due on due Goal Colonoscopy. Due on due Goal HPV testing. Due on due Goal Tobacco Use Cessation Counse ling. Due on due Goal FOBT. Due on due Goal Vitamin B12. Due on due Goal Pap/HPV testing. Due on due Goal Diabetes screening. Due on due Goal Follow up Plan f or abnormal BMI (Less than 18.5, greater than 25). Due on due Goal Drug Abuse Scree charles Test (DAST-10). Due on due Goal Tobacco Use Screening. Due o n due Goal CBC. Due on due Goal Mammogram. Due on due Goal TSH. Due on due Goal Obtain Height, Weight, and B AL. Due on due Goal Unhealthy drug use screening due Goal Hepatitis C Screening. Due o n due Goal Pneumococcal vaccine due Goal Depression screening. Due on due Goal Influenza vaccine. Due on due Goal Urinalysis. Due on due Goal GFR. Due on due Goal Lipid panel. Due on due Goal Dental exam. Due on due Goal ECG. Due on due Goal Hemoglobin A1C. Due on due Goal Taking Statin Medication. Du e on due Goal Foot exam. Due on due Goal Hep B (1st). Due on 023 due Goal Dilated eye exam. Due on Sep due Goal Urine microalbumin. Due on due Goal ASCVD 10 year risk. Due on due Goal GFR. Due on due Goal Generalized Anxi ety Disorder - 7 (BOLIVAR-7). Due on due Goal Tobacco Use Cessation Counse ling. Due on due Goal Follow up Plan f or abnormal BMI (Less than 18.5, greater than 25). Due on due Goal Tobacco Use Screening. Due o n due Goal Pap/HPV testing. Due on due Goal CBC. Due on due Goal Unhealthy drug use screening due Goal Mammogram. Due on due Goal Obtain Height, Weight, and B AL. Due on due Goal Vitamin B12. Due on due Goal HIV screen. Due on due Goal Hepatitis C Screening. Due o n due Goal TSH. Due on due Goal FOBT. Due on due Goal PAP. Due on due Goal Vitamin D. Due on due Goal Drug Abuse Scree charles Test (DAST-10). Due on due Goal Diabetes screening. Due on due Goal HPV. Due on due Goal Colonoscopy. Due on due Goal HPV testing. Due on due Goal CMP. Due on due Goal Pneumococcal vaccine due Goal Depression screening. Due on due Goal Influenza vaccine. Due on due Goal Urinalysis. Due on due Goal Obtain blood Pressure. Due o n due Goal Lipid panel. Due on due Goal Foot exam. Due on due Goal Dilated eye exam. Due on July due Goal ECG. Due on due Goal Urine microalbumin. Due on due Goal Hep B (). Due on due Goal Obtain blood Pressure. Due o n due Goal ASCVD 10 year risk. Due on due Goal Dental exam. Due on due Goal GFR. Due on due Goal Urinalysis. Due on due Goal Taking Statin Medication. Du e on due Goal Hemoglobin A1C. Due on due Goal Tobacco Use Cessation Counse ling. Due on due Goal Vitamin D. Due on due Goal Colonoscopy. Due on due Goal PAP. Due on due Goal Lipid panel. Due on due Goal Unhealthy drug use screening due Goal Pneumococcal vaccine due Goal TSH. Due on due Goal CBC. Due on due Goal HIV screen. Due on due Goal Vitamin B12. Due on due Goal FOBT. Due on due Goal Follow up Plan f or abnormal BMI (Less than 18.5, greater than 25). Due on due Goal Influenza vaccine. Due on Oc due Goal Tobacco Use Screening. Due o n due Goal Mammogram. Due on due Goal Diabetes screening. Due on M due Goal Drug Abuse Scree charles Test (DAST-10). Due on due Goal Hepatitis C Screening. Due o n due Goal CMP. Due on due Goal HPV. Due on due Goal HPV testing. Due on due Goal Obtain Height, Weight, and B AL. Due on due Goal Depression screening. Due on due Goal Generalized Anxi ety Disorder - 7 (BOLIVAR-7). Due on due Goal Pap/HPV testing. Due on due Goal Lifestyle education regardin g diet completed Referral Referred To: [facility] Ordered: Referrals: Ophthalmology. [facility]. Location: [place]. Evaluate and treat Appointment date/timeframe: 12/20/2022 ordered Referral Referred To: [facility] Ordered: Referrals: Orthopedic Surgery. [facility]. Location: [place]. Evaluate and treat Appointment date/timeframe: 11/05/2022 ordered Referral Referred To: [facility] [address] [place], [phone] Ordered: Referrals: Bariatric Surgery. [facility]. Location: [facility]. Evaluate and treat Appointment date/timeframe: 1 Month ordered Referral Referred To: [facility] Ordered: Referrals: Radiotherapy. [facility]. Location: [place]. Diagnostic testing Appointment date/timeframe: 08/26/2022 ordered History Of Present Illness Encounter Date Complaint History Of Prese nt Illness follow up on labs Lina is her e today for f/u on recent lab results.A1c 5.7, Free Insulin elevated at 22.8CBC, CMP ok HIV/Hep NegLdL 65, Trigs 203, HDL 53Iron T 36, TIBC 402 wnlSat %9, Ferr 6She likely has insulin resistance, masked by glimeperide.She was taking Monjaro 2.5 mg weeklyShe does have iron def. anemialast colonoscopy was-? Endoscopy- eferral made to bariatric/GI in [facility] on 08.20.22Shkim is to follow up on the referral and call [phone].SHe has had her mammo- 6.5.23 Bi-Rads Category 1- NegPap- partial hysterectomy he continues to see [facility] for therapy-Med management by Caitlyn Pendleton for sleep- states this is doing goodShe did not refill citalopram- I will send 1 month w/ refillTraci to mangae- next appt Dec 11. Solar Thermal Technician appt 8.4- will also see Derm on 8.14Rash on arms- has been there several monthstriamcinalone sent to pharm for nowMontelukast added by fiber drier operator [facility] ANGÉLICA IS HERE TODAY FOR FASTING LABS. SUCCESSFULLY COLLECTED 4 TUBES. PT TOLERATED WELL. PT IS SCHEDULED TO RTC IN 2 WEEKS TO FOLLOW UP ON LAB RESULTS. DID NOT COLLECT URINE SAMPLE TODAY. WILL COLLECT AND SEND OUT AT 2 WEEK FOLLOW UP VISIT. establish care Kirsten is a 47 yo female here today to establish care.She was last seen in echo by pcp whom manages her DM, hypothyroidism, hypercholesterol, HTN, anxiety/depression.SHe sees an fiber drier operator for multiple food and environmental allergies- Dr. Portillo (recent allergy testing)Also sees cardiology for racing heartbeat - Echo, Stress test, and Neuclear med stress test Julyhe has had a partial (uterous only) hysterectomy in relation to endometriosis- Julyhe has not had a mammogram in several yearsno colonoscopy- FOBT card given todaylast labs including a1c of 5.6 was completed July 02 at her last pcpShe did have an endoscopy day she needs refills on her allergy eye drops onlywould like referral for a [facility]- [facility]- [facility], and 27Goes to [facility] for counsling only- will ask for them to have pt see [facility] Instructions Date Instruction Additional Infor marlon Patient instructed o n appropriate use of medications prescribed for knee pain. Discussed conservative measures such as heat, ice, gentle strength stretching, and core muscle strengthening. Avoid heavy lifting, pulling, or tugging. Contact the clinic if any worsening or new symptoms related to knee pain. Referral has been made to orthopedics per your request. Related to Pain in left knee Physical activity as tolerated. Try to engage in some form of moderate physical activity for 30 minutes most days of the week. May modify activity as needed to reduce discomfort. Try to achieve/maintain a healthy body weight to reduce strain on musculoskeletal system. Verbalizes an understanding. Related to Body mass index [BMI] 50.0-59.9, adult Physical activity as tolerated. Try to engage in some form of moderate physical activity for 30 minutes most days of the week. May modify activity as needed to reduce discomfort. Try to achieve/maintain a healthy body weight to reduce strain on musculoskeletal system. Verbalizes an understanding. Related to Obesity Patient educated on the importance of maintaining glycemic control. Counseled on diet, exercise and other lifestyle factors that can impact glucose control. Monitor blood glucose and keep a log as instructed by checking fasting glucose in the AM and non fasting before bedtime with any additional checks as instructed. Patient instructed to bring glucose log to all scheduled appointments. Instructed on the importance of taking all medications as prescribed. Patient aware of the importance of diabetic eye exams, dental check ups, foot exams and diabetic foot care. Patient verbalized understanding. Related to Type 2 diabetes mellitus without complications Take any medications as prescribed, Follow a nutrient dense diet. Notify the provider of any signs of active bleeding (easy bruising, hematemesis, hematuria, melena, bright red blood per rectum), ornew symptoms, such as: increased fatigue, dyspnea, chest pain, weakness, dizziness, or palpitations. Verbalized an understanding of all. Related to Iron deficiency anemia Take medication rajan y at the same time, and on an empty stomach. Get adequate rest daily and 30 minutes of moderate exercise most days of the week. Related to Hypothyroidism, unspecified Patient currently do ing well. BP in goal range. No medication changes. Patient instructed to follow a low salt diet, continuing taking blood pressure medications as prescribed. Keep routine follow up with clinic. Related to Essential (primary) hypertension Giving encouragement to exercise Related to Body mass index [BMI] 50.0-59.9, adult Lifestyle education regarding di et Related to Body mass index [BMI] 50.0-59.9, adult Physical activity as tolerated. Try to engage in some form of moderate physical activity for 30 minutes most days of the week. May modify activity as needed to reduce discomfort. Try to achieve/maintain a healthy body weight to reduce strain on musculoskeletal system. Verbalizes an understanding.Referral for weight management made to [facility] Related to Obesity Counseled patients o n medications for reflux. Discussed lifestyle modifications including but not limited to elevating the head of the bed, limiting fatty, greasy, spicy food intake. Avoid heavy meals and caffeine intake within 2 hours of bedtime. If applicable, reduce/discontinue tobacco use and/or alcohol use, as both can make reflux symptoms worse. Related to GERD disease w/ esophagitis, w/o bleeding Patient educated on the importance of maintaining glycemic control. Counseled on diet, exercise and other lifestyle factors that can impact glucose control. Monitor blood glucose and keep a log as instructed by checking fasting glucose in the AM and non fasting before bedtime with any additional checks as instructed. Patient instructed to bring glucose log to all scheduled appointments. Instructed on the importance of taking all medications as prescribed. Patient aware of the importance of diabetic eye exams, dental check ups, foot exams and diabetic foot care. Patient verbalized understanding. Related to Type 2 diabetes mellitus without complications 15 minutes of sun ex posure daily to naturally raise vitamin D levels Related to Vitamin D deficiency, unspecified Take medication rajan y at the same time, and on an empty stomach. Get adequate rest daily and 30 minutes of moderate exercise most days of the week. Related to Hypothyroidism, unspecified Take medications as prescribed. Follow a sleep schedule. Try to engage in 30 minutes of moderate activity daily if tolerated, as exercise has been shown to improve depression symptoms Related to Depression, unspecified Patient currently do ing well. BP in goal range. No medication changes. Patient instructed to follow a low salt diet, continuing taking blood pressure medications as prescribed. Keep routine follow up with clinic. Related to Essential (primary) hypertension Discussed stress red uction techniques. Take medications as prescribed. Limit caffeine and nicotine. Try to follow a set sleep schedule. Get daily moderate exercise if able to tolerate. Related to Anxiety Giving encouragement to exercise Related to Body mass index [BMI] 50.0-59.9, adult Lifestyle education regarding di et Related to Body mass index [BMI] 50.0-59.9, adult Assessments Type Assessment Date No Information
--- OUTSIDE RECORDS SUMMARY | 2024-10-08 09:28 | XMS_ITS | Encounter Summary ---
Author Organization [employer] ([place], [place], [place], [place]) Address [address] [place] [address] Care Team Providers Care Evening Anchor Name Role Phone NellieReina hancock Nilsa TAMEZ Primary Care Provider [phone] Encounter Details Date Type Department Care Team (Late st Contact Info) Description 12/02/2019 Transcribed Document [facility] Family Medicine [address] [place] [address] ProviderVeronica MD [address] [place] [address] Social History Tobacco Use Types Packs/Day Years Used Date Smoking Tobacco: Never Assessed Comments Unknown Sex and Gender Information Value Date Recorded Sex Assigned at Not on file Legal Sex Female 4:58 PM CDT Gender Identity Not on file Sexual Orientation Not on file documented as of this encounter Miscellaneous Notes * Cerner Conversion Note - Veronica ProviderMD - 12/02/2019 4:45 PM CDT [place] [id number] YANE REBOLLEDO :1970 Visit Time:12/02/2019 What to do next Your Diagnosis Abnormal uterine and vaginal bleeding, unspecified, Abnormal uterine and vaginal bleeding, unspecified, Abnormal uterine and vaginal bleeding, unspecified, Abnormal uterine bleeding (AUB) PCOS (polycystic ovarian syndrome) Instructions From Your Care Team You have a prescription for Ibuprofen 600mg 1 tablet by mouth every 6 hours as needed for pain and Percocet 5/325 1 tablet by mouth every 6 hours as needed for pain. Resume usual diet as tolerated, no strenuous activity. No driving until 24 hours after taking medication. May shower Discharge Activity: Discharge Activity: No strenuous activities Diet: Discharge Diet: Resume usual diet as tolerated Showering/Bathing Instructions: May shower Driving Restriction: No driving until 24 hours after taking pain medication Follow-Up Appointments Follow Up with [facility] When Comments Keep your previous scheduled appointment. Where: Medications What How Much When Instructions Next Dose aspirin (aspirin 81 mg oral delayed release tablet) 1 Tablet(s) Oral Every Day citalopram (citalopram 10 mg oral tablet) 1 Tablet(s) Oral Every Day DULoxetine 60 Milligram(s) Oral Every Day glimepiride 2 Milligram(s) Oral Every Day hydrochlorothiazide-losartan (hydroCHLOROthiazide-losartan 12.5 mg-50 mg oral tablet) 1 Tablet(s) Oral Two Times A Day levothyroxine (levothyroxine 125 mcg (0.125 mg) oral tablet) 1 Tablet(s) Oral Every Day meloxicam (Mobic 15 mg oral tablet) 1 Tablet(s) Oral Every Day metformin (metformin 500 mg oral tablet) 1 Tablet(s) Oral Two Times A Day multivitamin with minerals (Vitamin D with Minerals oral tablet) 1 Tablet(s) Oral Every Day norethindrone (norethindrone 0.35 mg oral tablet) 1 Tablet(s) Oral Every Day simvastatin (simvastatin 20 mg oral tablet) 2 Tablet(s) Oral At Bedtime Take your medications faithfully. Do NOT skip medication. Do NOT stop taking medications without the direction of a physician. Carry a list of your medications with you at all times, and take this medication list with you to your first follow up visit. Report any side effects. Avoid herbal remedies unless discussed with your physician. As part of your treatment plan, your physician may have prescribed a limited course of a controlled substance. This medication may be given to help people with moderate or severe pain or for other medical conditions, but there are risks involved with treatment. Common side effects may include nausea, constipation, drowsiness, sweating, itching, dry mouth, and rash. More serious side effects may include cognitive and motor impairment, like problems with thinking, concentrating, alertness, and movement (e.g. slowed reflexes), and driving and operating heavy machinery can be dangerous. It is important for you to talk to your physician if you have these side effects or questions. These controlled substances can produce physical dependence and be habit-forming if taken for an extended period of time, which means that the body has gotten used to them and may experience withdrawal symptoms if they are abruptly stopped. Withdrawal symptoms can include runny nose, sweating, goose bumps, diarrhea, abdominal cramping, rapid heartbeat, difficulty sleeping, and nervousness. Please dispose of unused and medications per pharmacy guidance. Education Materials General Anesthesia, Adult, Care After This sheet gives you information about how to care for yourself after your procedure. Your health care provider may also give you more specific instructions. If you have problems or questions, contact your health care provider. What can I expect after the procedure? After the procedure, the following side effects are common: ??? Pain or discomfort at the IV site. ??? Nausea. ??? Vomiting. ??? Sore throat. ??? Trouble concentrating. ??? Feeling cold or chills. ??? Weak or tired. ??? Sleepiness and fatigue. ??? Soreness and body aches. These side effects can affect parts of the body that were not involved in surgery. Follow these instructions at home: For at least 24 hours after the procedure: ??? Have a responsible adult stay with you. It is important to have someone help care for you until you are awake and alert. ??? Rest as needed. ??? Do not: ? Participate in activities in which you could fall or become injured. ? Drive. ? Use heavy machinery. ? Drink alcohol. ? Take sleeping pills or medicines that cause drowsiness. ? Make important decisions or sign legal documents. ? Take care of children on your own. Eating and drinking ??? Follow any instructions from your health care provider about eating or drinking restrictions. ??? When you feel hungry, start by eating small amounts of foods that are soft and easy to digest (bland), such as toast. Gradually return to your regular diet. ??? Drink enough fluid to keep your urine pale yellow. ??? If you vomit, rehydrate by drinking water, juice, or clear broth. General instructions ??? If you have sleep apnea, surgery and certain medicines can increase your risk for breathing problems. Follow instructions from your health care provider about wearing your sleep device: ? Anytime you are sleeping, including during daytime naps. ? While taking prescription pain medicines, sleeping medicines, or medicines that make you drowsy. ??? Return to your normal activities as told by your health care provider. Ask your health care provider what activities are safe for you. ??? Take kkzs-pae-pfereml and prescription medicines only as told by your health care provider. ??? If you smoke, do not smoke without supervision. ??? Keep all follow-up visits as told by your health care provider. This is important. Contact a health care provider if: ??? You have nausea or vomiting that does not get better with medicine. ??? You cannot eat or drink without vomiting. ??? You have pain that does not get better with medicine. ??? You are unable to pass urine. ??? You develop a skin rash. ??? You have a fever. ??? You have redness around your IV site that gets worse. Get help right away if: ??? You have difficulty breathing. ??? You have chest pain. ??? You have blood in your urine or stool, or you vomit blood. Summary ??? After the procedure, it is common to have a sore throat or nausea. It is also common to feel tired. ??? Have a responsible adult stay with you for the first 24 hours after general anesthesia. It is important to have someone help care for you until you are awake and alert. ??? When you feel hungry, start by eating small amounts of foods that are soft and easy to digest (bland), such as toast. Gradually return to your regular diet. ??? Drink enough fluid to keep your urine pale yellow. ??? Return to your normal activities as told by your health care provider. Ask your health care provider what activities are safe for you. This information is not intended to replace advice given to you by your health care provider. Make sure you discuss any questions you have with your health care provider. Document Released: 06/16/2001 Document Revised: 03/13/2018 Document Reviewed: 10/24/2017 Else[employer] Patient Education ?? 2020 [employer] Myomectomy, Care After This sheet gives you information about how to care for yourself after your procedure. Your health care provider may also give you more specific instructions. If you have problems or questions, contact your health care provider. What can I expect after the procedure? After the procedure, it is common to have: ??? Pain in your abdomen, especially at the incision areas. You will be given pain medicine to control the pain. ??? Tiredness. This is a normal part of the recovery process. Your energy level will return to normal over the coming weeks. ??? Vaginal bleeding. This is normal and will stop in the coming weeks. ??? Constipation. Recovery time from this procedure will depend on the type of procedure you had and your general overall health prior to the procedure. Follow these instructions at home: Medicines ??? Take puzd-vjk-bkmyxzm and prescription medicines only as told by your health care provider. ??? Do not take aspirin because it can cause bleeding. ??? If you were prescribed an antibiotic medicine, use it as told by your health care provider. Do not stop using the antibiotic even if you start to feel better. ??? Do not drive or use heavy machinery while taking prescription pain medicine. ??? Do not drink alcohol while taking prescription pain medicine. Incision care ??? Follow instructions from your health care provider about how to take care of any incisions. Make sure you: ? Wash your hands with soap and water before you change your bandage (dressing). If soap and water are not available, use hand weed eradicator. ? Change your dressing as told by your health care provider. ? Leave stitches (sutures), skin glue, or adhesive strips in place. These skin closures may need to stay in place for 2 weeks or longer. If adhesive strip edges start to loosen and curl up, you may trim the loose edges. Do not remove adhesive strips completely unless your health care provider tells you to do that. ??? Check your incision areas every day for signs of infection. Check for: ? Redness, swelling, or pain. ? Fluid or blood. ? Warmth. ? Pus or a bad smell. ??? Do not take baths, swim, or use a hot tub until your health care provider approves. Take showers as directed by your health care provider. Activity ??? Return to your normal activities as told by your health care provider. Ask your health care provider what activities are safe for you. ??? Do not do activities that require a lot of effort until your health care provider says it is okay. ??? Do not lift anything that is heavier than 15 lb (6.8 kg) until your health care provider says that it is safe. ??? Do not douche, use tampons, or have sexual intercourse until your health care provider approves. ??? Walk daily but take frequent rest breaks if you tire easily. ??? Continue to practice deep breathing and coughing. If it hurts to cough, try holding a pillow against your belly as you cough. ??? Do not drive until your health care provider approves. General instructions ??? To prevent or treat constipation while you are taking prescription pain medicine, your health care provider may recommend that you: ? Drink enough fluid to keep your urine clear or pale yellow. ? Take vcjh-rwj-rxzubee or prescription medicines. ? Eat foods that are high in fiber, such as fresh fruits and vegetables, whole grains, and beans. ? Limit foods that are high in fat and processed sugars, such as fried and sweet foods. ??? Take your temperature twice a day and write it down. If you develop a fever, this may be a sign that you have an infection. ??? Do not drink alcohol. ??? Have someone help you at home for 1 week or until you can do your own household activities. ??? Keep all follow-up visits as told by your health care provider. This is important. Contact a health care provider if: ??? You have a fever. ??? You have increasing abdominal pain that is not relieved with medicine. ??? You have nausea, vomiting, or diarrhea. ??? You have pain when you urinate or you have blood in your urine. ??? You have a rash on your body. ??? You have pain or redness where your IV access tube was inserted. ??? You have redness, swelling, or pain around an incision. ??? You have fluid or blood coming from an incision. ??? An incision feels warm to the touch. ??? You have pus or a bad smell coming from an incision. Get help right away if: ??? You have weakness or light-headedness. ??? You have pain, swelling, or redness in your legs. ??? You have chest pain. ??? You faint. ??? You have shortness of breath. ??? You have heavy vaginal bleeding. ??? You have an incision that is opening up. Summary ??? Recovery time from this procedure will depend on the type of procedure you had and your general overall health prior to the procedure. ??? If you were prescribed an antibiotic medicine, use it as told by your health care provider. Do not stop using the antibiotic even if you start to feel better. ??? Do not douche, use tampons, or have sexual intercourse until your health care provider approves. ??? Return to your normal activities as told by your health care provider. Ask your health care provider what activities are safe for you. This information is not intended to replace advice given to you by your health care provider. Make sure you discuss any questions you have with your health care provider. Document Released: 07/31/2011 Document Revised: 02/20/2018 Document Reviewed: 04/10/2017 [employer] Patient Education ?? 2020 [employer]. Hysteroscopy, Care After This sheet gives you information about how to care for yourself after your procedure. Your health care provider may also give you more specific instructions. If you have problems or questions, contact your health care provider. What can I expect after the procedure? After the procedure, it is common to have: ??? Cramping. ??? Bleeding. This can vary from light spotting to menstrual-like bleeding. Follow these instructions at home: Activity ??? Rest for 1???2 days after the procedure. ??? Do not douche, use tampons, or have sex for 2 weeks after the procedure, or until your health care provider approves. ??? Do not drive for 24 hours after the procedure, or for as long as told by your health care provider. ??? Do not drive, use heavy machinery, or drink alcohol while taking prescription pain medicines. Medicines ??? Take rhtd-mcl-uqrsivj and prescription medicines only as told by your health care provider. ??? Do not take aspirin during recovery. It can increase the risk of bleeding. General instructions ??? Do not take baths, swim, or use a hot tub until your health care provider approves. Take showers instead of baths for 2 weeks, or for as long as told by your health care provider. ??? To prevent or treat constipation while you are taking prescription pain medicine, your health care provider may recommend that you: ? Drink enough fluid to keep your urine clear or pale yellow. ? Take fjrm-tgy-mwyvvef or prescription medicines. ? Eat foods that are high in fiber, such as fresh fruits and vegetables, whole grains, and beans. ? Limit foods that are high in fat and processed sugars, such as fried and sweet foods. ??? Keep all follow-up visits as told by your health care provider. This is important. Contact a health care provider if: ??? You feel dizzy or lightheaded. ??? You feel nauseous. ??? You have abnormal vaginal discharge. ??? You have a rash. ??? You have pain that does not get better with medicine. ??? You have chills. Get help right away if: ??? You have bleeding that is heavier than a normal menstrual period. ??? You have a fever. ??? You have pain or cramps that get worse. ??? You develop new abdominal pain. ??? You faint. ??? You have pain in your shoulders. ??? You have shortness of breath. Summary ??? After the procedure, you may have cramping and some vaginal bleeding. ??? Do not douche, use tampons, or have sex for 2 weeks after the procedure, or until your health care provider approves. ??? Do not take baths, swim, or use a hot tub until your health care provider approves. Take showers instead of baths for 2 weeks, or for as long as told by your health care provider. ??? Report any unusual symptoms to your health care provider. ??? Keep all follow-up visits as told by your health care provider. This is important. This information is not intended to replace advice given to you by your health care provider. Make sure you discuss any questions you have with your health care provider. Document Released: 12/29/2013 Document Revised: 02/20/2018 Document Reviewed: 04/08/2017 [employer] Patient Education ?? 2020 [employer]. acetaminophen and oxycodone (a SEET a MIN oh fen and OX i KOE done) Endocet 10/325, Endocet 2.5/325, Endocet 5/325, Endocet 7.5/325, Nalocet, Percocet, Primlev What is the most important information I should know about acetaminophen and oxycodone? MISUSE OF OPIOID MEDICINE CAN CAUSE ADDICTION, OVERDOSE, OR . Keep the medication in a place where others cannot get to it. An overdose of acetaminophen can damage your liver or cause . Call your doctor at once if you have pain in your upper stomach, loss of appetite, dark urine, or jaundice (yellowing of your skin or eyes). Taking opioid medicine during may cause life-threatening withdrawal symptoms in the . Fatal side effects can occur if you use opioid medicine with alcohol, or with other drugs that cause drowsiness or slow your breathing. Stop taking this medicine and call your doctor right away if you have skin redness or a rash that spreads and causes blistering and peeling. What is acetaminophen and oxycodone? Acetaminophen and oxycodone is a combination medicine used to relieve moderate to severe pain. Acetaminophen and oxycodone may also be used for purposes not listed in this medication guide. What should I discuss with my healthcare provider before taking acetaminophen and oxycodone? You should not use this medicine if you are allergic to acetaminophen or oxycodone, or if you have: ?? severe asthma or breathing problems; or ?? a blockage in your stomach or intestines. Tell your doctor if you have ever had: ?? breathing problems, sleep apnea; ?? liver disease; ?? a drug or alcohol addiction; ?? kidney disease; ?? a head injury or seizures; ?? urination problems; or ?? problems with your thyroid, pancreas, or gallbladder. If you use opioid medicine while you are , your baby could become dependent on the drug. This can cause life-threatening withdrawal symptoms in the baby after it is born. Babies born dependent on opioids may need medical treatment for several weeks. Do not breastfeed. This medicine can pass into breast milk and cause drowsiness, breathing problems, or in a nursing baby. How should I take acetaminophen and oxycodone? Follow all directions on your prescription label. Never take this medicine in larger amounts, or for longer than prescribed. An overdose can damage your liver or cause . Tell your doctor if you feel an increased urge to use more of this medicine. Never share this medicine with another person, especially someone with a history of drug abuse or addiction. MISUSE CAN CAUSE ADDICTION, OVERDOSE, OR . Keep the medicine in a place where others cannot get to it. Selling or giving away acetaminophen and oxycodone is against the law. Measure liquid medicine carefully. Use the dosing syringe provided, or use a medicine dose-measuring device (not a kitchen spoon). If you need surgery or medical tests, tell the doctor ahead of time that you are using this medicine. You should not stop using this medicine suddenly. Follow your doctor's instructions about tapering your dose. Store at room temperature away from moisture and heat. Keep track of your medicine. You should be aware if anyone is using it improperly or without a prescription. Do not keep leftover opioid medication. Just one dose can cause in someone using this medicine accidentally or improperly. Ask your pharmacist where to locate a drug take-back disposal program. If there is no take-back program, flush the unused medicine down the toilet. What happens if I miss a dose? Since this medicine is used for pain, you are not likely to miss a dose. Skip any missed dose if it is almost time for your next dose. Do not use two doses at one time. What happens if I overdose? Seek emergency medical attention or call the Poison Help line at . An overdose of acetaminophen and oxycodone can be fatal. The first signs of an acetaminophen overdose include loss of appetite, nausea, vomiting, stomach pain, sweating, and confusion or weakness. Later symptoms may include pain in your upper stomach, dark urine, and yellowing of your skin or the whites of your eyes. Overdose can also cause severe muscle weakness, pinpoint pupils, very slow breathing, extreme drowsiness, or coma. What should I avoid while taking acetaminophen and oxycodone? Avoid driving or operating machinery until you know how this medicine will affect you. Dizziness or drowsiness can cause falls, accidents, or severe injuries. Do not drink alcohol. Dangerous side effects or could occur. Ask a doctor or pharmacist before using any other medicine that may contain acetaminophen (sometimes abbreviated as APAP). Taking certain medications together can lead to a fatal overdose. What are the possible side effects of acetaminophen and oxycodone? Get emergency medical help if you have signs of an allergic reaction: hives; difficulty breathing; swelling of your face, lips, tongue, or throat. Opioid medicine can slow or stop your breathing, and may occur. A person caring for you should seek emergency medical attention if you have slow breathing with long pauses, blue colored lips, or if you are hard to wake up. In rare cases, acetaminophen may cause a severe skin reaction that can be fatal. This could occur even if you have taken acetaminophen in the past and had no reaction. Stop taking this medicine and call your doctor right away if you have skin redness or a rash that spreads and causes blistering and peeling. Call your doctor at once if you have: ?? noisy breathing, sighing, shallow breathing, breathing that stops during sleep; ?? a light-headed feeling, like you might pass out; ?? weakness, tiredness, fever, unusual bruising or bleeding; ?? confusion, unusual thoughts or behavior; ?? problems with urination; ?? liver problems--nausea, upper stomach pain, tiredness, loss of appetite, dark urine, ishan-colored stools, jaundice (yellowing of the skin or eyes); or ?? low cortisol levels-- nausea, vomiting, loss of appetite, dizziness, worsening tiredness or weakness. Seek medical attention right away if you have symptoms of serotonin syndrome, such as: agitation, hallucinations, fever, sweating, shivering, fast heart rate, muscle stiffness, twitching, loss of coordination, nausea, vomiting, or diarrhea. Serious side effects may be more likely in older adults and those who are overweight, malnourished, or debilitated. Long-term use of opioid medication may affect fertility (ability to have children) in men or women. It is not known whether opioid effects on fertility are permanent. Common side effects include: ?? dizziness, drowsiness, feeling tired; ?? feelings of extreme happiness or sadness; ?? nausea, vomiting, stomach pain; ?? constipation; or ?? headache. This is not a complete list of side effects and others may occur. Call your doctor for medical advice about side effects. You may report side effects to FDA at 1-844-IRF-4155. What other drugs will affect acetaminophen and oxycodone? You may have breathing problems or withdrawal symptoms if you start or stop taking certain other medicines. Tell your doctor if you also use an antibiotic, antifungal medication, heart or blood pressure medication, seizure medication, or medicine to treat HIV or hepatitis C. Opioid medication can interact with many other drugs and cause dangerous side effects or . Be sure your doctor knows if you also use: ?? cold or allergy medicines, bronchodilator asthma/COPD medication, or a diuretic ('water pill'); ?? medicines for motion sickness, irritable bowel syndrome, or overactive bladder; ?? other narcotic medications--opioid pain medicine or prescription cough medicine; ?? a sedative like Valium--diazepam, alprazolam, lorazepam, Xanax, Klonopin, Versed, and others; ?? drugs that make you sleepy or slow your breathing--a sleeping pill, muscle relaxer, medicine to treat mood disorders or mental illness; ?? drugs that affect serotonin levels in your body--a stimulant, or medicine for depression, Parkinson's disease, migraine headaches, serious infections, or nausea and vomiting. This list is not complete. Other drugs may affect acetaminophen and oxycodone, including prescription and kfvt-oot-nnaelqs medicines, vitamins, and herbal products. Not all possible interactions are listed here. Where can I get more information? Your doctor or pharmacist can provide more information about acetaminophen and oxycodone. Remember, keep this and all other medicines out of the reach of children, never share your medicines with others, and use this medication only for the indication prescribed. Every effort has been made to ensure that the information provided by [employer]. [employer]') is accurate, up-to-date, and complete, but no guarantee is made to that effect. Drug information contained herein may be time sensitive. [employer] information has been compiled for use by healthcare practitioners and consumers in the [place] and therefore [employer] does not warrant that uses outside of the [place] are appropriate, unless specifically indicated otherwise. [employer]'s drug information does not endorse drugs, diagnose patients or recommend therapy. [employer] drug information is an informational resource designed to assist licensed healthcare practitioners in caring for their patients and/or to serve consumers viewing this service as a supplement to, and not a substitute for, the expertise, skill, knowledge and judgment of healthcare practitioners. The absence of a warning for a given drug or drug combination in no way should be construed to indicate that the drug or drug combination is safe, effective or appropriate for any given patient. [facility] does not assume any responsibility for any aspect of healthcare administered with the aid of information [facility] provides. The information contained herein is not intended to cover all possible uses, directions, precautions, warnings, drug interactions, allergic reactions, or adverse effects. If you have questions about the drugs you are taking, check with your doctor, nurse or pharmacist. Copyright 3728-9147 [facility]. Version: .. Revision Date: 04/14/2019. ibuprofen (EYE bue PROE fen) Advil, Genpril, IBU, Midol IB, Motrin IB, Proprinal, [employer] Children's Ibuprofen What is the most important information I should know about ibuprofen? Ibuprofen can increase your risk of fatal heart attack or stroke, especially if you use it intermediate teacher or take high doses, or if you have heart disease. Do not use this medicine just before or after heart bypass surgery (coronary artery bypass graft, or CABG). Ibuprofen may also cause stomach or intestinal bleeding, which can be fatal. These conditions can occur without warning while you are using ibuprofen, especially in older adults. What is ibuprofen? Ibuprofen is a nonsteroidal anti-inflammatory drug (NSAID). Ibuprofen works by reducing hormones that cause inflammation and pain in the body. Ibuprofen is used to reduce fever and treat pain or inflammation caused by many conditions such as headache, toothache, back pain, arthritis, menstrual cramps, or minor injury. This medicine is used in adults and children who are at least 6 months old. Ibuprofen may also be used for purposes not listed in this medication guide. What should I discuss with my healthcare provider before taking ibuprofen? Ibuprofen can increase your risk of fatal heart attack or stroke, especially if you use it intermediate teacher or take high doses, or if you have heart disease. Even people without heart disease or risk factors could have a stroke or heart attack while taking this medicine. Do not use this medicine just before or after heart bypass surgery (coronary artery bypass graft, or CABG). Ibuprofen may also cause stomach or intestinal bleeding, which can be fatal. These conditions can occur without warning while you are using ibuprofen, especially in older adults. You should not use ibuprofen if you are allergic to it, or if you have ever had an asthma attack or severe allergic reaction after taking aspirin or an NSAID. Ask a doctor or pharmacist if it is safe for you to take this medicine if you have: ?? heart disease, high blood pressure, high cholesterol, diabetes, or if you smoke; ?? a history of heart attack, stroke, or blood clot; ?? a history of stomach ulcers or bleeding; ?? asthma; ?? liver or kidney disease; ?? fluid retention; or ?? a connective tissue disease such as Marfan syndrome, Sjogren's syndrome, or lupus. Taking ibuprofen during the last 3 months of may harm the unborn baby. Do not use this medicine without a doctor's advice if you are . It is not known whether ibuprofen passes into breast milk or if it could affect a nursing baby. Ask a doctor before using this medicine if you are . Do not give ibuprofen to a child younger than 2 years old without the advice of a doctor. How should I take ibuprofen? Use exactly as directed on the label, or as prescribed by your doctor. Do not use in larger amounts or for longer than recommended. Use the lowest dose that is effective in treating your condition. Do not take more than your recommended dose. An ibuprofen overdose can damage your stomach or intestines. The maximum amount of ibuprofen for adults is 800 milligrams per dose or 3200 mg per day (4 maximum doses). Use only the smallest amount of ibuprofen needed to get relief from your pain, swelling, or fever. A child's dose of ibuprofen is based on the age and weight of the child. Carefully follow the dosing instructions provided with children's ibuprofen for the age and weight of your child. Ask a doctor or pharmacist if you have questions. Take ibuprofen with food or milk to lessen stomach upset. Shake the oral suspension (liquid) well just before you measure a dose. Measure liquid medicine with the dosing syringe provided, or with a special dose-measuring spoon or medicine cup. If you do not have a dose-measuring device, ask your pharmacist for one. The ibuprofen chewable tablet must be chewed before you swallow it. If you use this medicine long-term, you may need frequent medical tests. Store at room temperature away from moisture and heat. Do not allow the liquid medicine to freeze. Read all patient information, medication guides, and instruction sheets provided to you. Ask your doctor or pharmacist if you have any questions. What happens if I miss a dose? Since ibuprofen is used when needed, you may not be on a dosing schedule. If you are on a schedule, use the missed dose as soon as you remember. Skip the missed dose if it is almost time for your next scheduled dose. Do not use extra medicine to make up the missed dose. What happens if I overdose? Seek emergency medical attention or call the Poison Help line at . Overdose symptoms may include nausea, vomiting, stomach pain, drowsiness, black or bloody stools, coughing up blood, shallow breathing, fainting, or coma. What should I avoid while taking ibuprofen? Avoid drinking alcohol. It may increase your risk of stomach bleeding. Avoid taking aspirin unless your doctor tells you to. Avoid taking ibuprofen if you are taking aspirin to prevent stroke or heart attack. Ibuprofen can make aspirin less effective in protecting your heart and blood vessels. If you must use both medications, take the ibuprofen at least 8 hours before or 30 minutes after you take the aspirin (non-enteric coated form). Ask a doctor or pharmacist before using any cold, allergy, or pain medicine. Many medicines available over the counter contain aspirin or other medicines similar to ibuprofen. Taking certain products together can cause you to get too much of this type of medication. Check the label to see if a medicine contains aspirin, ibuprofen, ketoprofen, or naproxen. What are the possible side effects of ibuprofen? Get emergency medical help if you have signs of an allergic reaction: sneezing, runny or stuffy nose; wheezing or trouble breathing; hives; swelling of your face, lips, tongue, or throat. Get emergency medical help if you have signs of a heart attack or stroke: chest pain spreading to your jaw or shoulder, sudden numbness or weakness on one side of the body, slurred speech, leg swelling, feeling short of breath. Stop using ibuprofen and call your doctor at once if you have: ?? changes in your vision; ?? shortness of breath (even with mild exertion); ?? swelling or rapid weight gain; ?? the first sign of any skin rash, no matter how mild; ?? signs of stomach bleeding--bloody or tarry stools, coughing up blood or vomit that looks like coffee grounds; ?? liver problems--nausea, upper stomach pain, itching, tired feeling, flu-like symptoms, loss of appetite, dark urine, ishan-colored stools, jaundice (yellowing of the skin or eyes); ?? kidney problems--little or no urinating, painful or difficult urination, swelling in your feet or ankles, feeling tired or short of breath; ?? low red blood cells (anemia)--pale skin, feeling light-headed or short of breath, rapid heart rate, trouble concentrating; or ?? severe skin reaction--fever, sore throat, swelling in your face or tongue, burning in your eyes, skin pain followed by a red or purple skin rash that spreads (especially in the face or upper body) and causes blistering and peeling. Common side effects may include: ?? nausea, vomiting, gas; ?? bleeding; or ?? dizziness, headache. This is not a complete list of side effects and others may occur. Call your doctor for medical advice about side effects. You may report side effects to FDA at 6-057-FKA-3656. What other drugs will affect ibuprofen? Ask your doctor before using ibuprofen if you take an antidepressant such as citalopram, escitalopram, fluoxetine (Prozac), fluvoxamine, paroxetine, sertraline (Zoloft), trazodone, or vilazodone. Taking any of these medicines with an NSAID may cause you to bruise or bleed easily. Ask a doctor or pharmacist if it is safe for you to use ibuprofen if you are also using any of the following drugs: ?? cyclosporine; ?? pemetrexed; ?? lithium; ?? methotrexate; ?? a blood thinner (warfarin, Coumadin, Jantoven); ?? heart or blood pressure medication, including a diuretic or 'water pill'; or ?? steroid medicine (such as prednisone). This list is not complete. Other drugs may interact with ibuprofen, including prescription and dyiu-kug-dgobcdk medicines, vitamins, and herbal products. Not all possible interactions are listed in this medication guide. Where can I get more information? Your pharmacist can provide more information about ibuprofen. Remember, keep this and all other medicines out of the reach of children, never share your medicines with others, and use this medication only for the indication prescribed. Every effort has been made to ensure that the information provided by [employer]. [employer]') is accurate, up-to-date, and complete, but no guarantee is made to that effect. Drug information contained herein may be time sensitive. [employer] information has been compiled for use by healthcare practitioners and consumers in the [place] and therefore [employer] does not warrant that uses outside of the [place] are appropriate, unless specifically indicated otherwise. [employer] drug information does not endorse drugs, diagnose patients or recommend therapy. [employer] drug information is an informational resource designed to assist licensed healthcare practitioners in caring for their patients and/or to serve consumers viewing this service as a supplement to, and not a substitute for, the expertise, skill, knowledge and judgment of healthcare practitioners. The absence of a warning for a given drug or drug combination in no way should be construed to indicate that the drug or drug combination is safe, effective or appropriate for any given patient. [employer] does not assume any responsibility for any aspect of healthcare administered with the aid of information [employer] provides. The information contained herein is not intended to cover all possible uses, directions, precautions, warnings, drug interactions, allergic reactions, or adverse effects. If you have questions about the drugs you are taking, check with your doctor, nurse or pharmacist. Copyright 9362-1488 [employer]. Version: 21.. Revision Date: 04/05/2019. Emergency Awareness and Preventative Care STROKE is an EMERGENCY Every Minute Counts Act FAST and Check for these signs: FACE Does the face look uneven? ARM Does one arm drift down? SPEECH Does their speech sound strange? TIME Call at any sign of stroke Stroke Risk Factors Atrial Fibrillation (irregular heartbeat) Diabetes Family history of stroke Heart Disease Heavy alcohol use High Blood Pressure High Cholesterol Physical inactivity and obesity Smoking Cigarette Smoking The facts are clear, cigarette smoking will shorten your life. Smoking can cause many illnesses along the way. As a healthcare provider, we recommend that you stop smoking. Assistance with quitting is available by contacting 3-791-XKTK-NOW. This is a free resource providing counseling, support, and referral. Or you may contact your personal physician. National Suicide Prevention Lifeline: The National Suicide Prevention Lifeline is a national network of local crisis centers that provides free and confidential emotional support to people in suicidal crisis or emotional distress 24 hours a day, 7 days a week. Don't Wait! Stop a Heart Attack Before it Starts What is a heart attack? A heart attack is damage or to a part of the heart from severely decreased or lack of blood flow to the heart. Over time, arteries can become narrow from the buildup of fat and cholesterol, which is called plaque. The plaque can rupture causing a blood clot to form. When the blood clot forms, the artery can become severely narrowed or completely blocked, causing a heart attack. Heart attack is the leading cause of in the [place]. 85% of muscle damage occurs within the first 2 hours. Delay in the recognition of heart attack symptoms increases the chances of . Know the early symptoms of a heart attack: Nausea Feeling of fullness in chest Jaw Pain Pain that travels down one or both arms Fatigue/being tired Anxiety Back Pain Chest pressure, squeezing, or discomfort Shortness of breath Sweating, or a cold sweat Feeling of impending doom There are unusual signs of a heart attack, too! Women, the elderly, and diabetics may present with atypical symptoms: Fainting/dizziness Weakness Confusion Risk Factors for a Heart Attack Some heart disease risk factors, such as age and family history, cannot be changed. Others, like smoking and lack of exercise, can be changed. Smoking High Cholesterol High Blood Pressure Family History Obesity Age Gender (Males are at higher risk) Lack of Exercise Diabetes Diet Stress Excessive Alcohol Intake If you or someone you know is experiencing the signs and symptoms of a heart attack, DON???T DELAY. Call immediately and seek help. If someone collapses, perform CPR! Do not attempt to drive if you are having symptoms of heart attack. Hands-Only CPR Why Hands-Only CPR? Hands-Only CPR has been shown to be as effective as conventional CPR for cardiac arrests that occur outside of a hospital. Survival depends on immediately receiving CPR from someone nearby. How do you perform Hands-Only CPR? There are two easy steps: Call if you see a teen or adult collapse Push hard and fast in the center of the chest at a beat of 100 beats per minute. Save a life! 4 WAYS TO GET AHEAD OF SEPSIS SEPSIS is a MEDICAL EMERGENCY. Time matters! Infections put you and your family at risk for a life-threatening condition called sepsis. Sepsis is the body's extreme response to an infection. It is life-threatening, and without timely treatment, sepsis can rapidly lead to tissue damage, organ failure, and . Sepsis happens when an infection you already have-in your skin, lungs, urinary tract or somewhere else-triggers a chain reaction throughout your body. 1 PREVENT INFECTIONS Take good care of chronic conditions. Talk to your doctor about getting the recommended vaccines. 2 PRACTICE GOOD HYGIENE Wash your hands frequently. Keep cuts or open sores clean and covered until they are healed. 3 KNOW THE SYMPTOMS Confusion or disorientation Shortness of breath High heart rate Fever, shivering, or feeling very cold Extreme pain or discomfort Clammy or sweaty skin 4 ACT FAST Get medical care IMMEDIATELY if you suspect sepsis or if you have an infection that is not getting better or is getting worse. To learn more about sepsis and how to prevent infections, visit www.cdc.gov/sepsis. Test Results Laboratory or Other Results This Visit (last charted value for your 12/02/2019 visit) Microbiology 11/30/2019 9:20 AM Novel Coronavirus 2019: Not Detected General Chemistry 12/02/2019 4:15 PM Glucose POC2: 119 mg/dL -- Normal range between ( 70 and 110 ) 12/02/2019 12:50 PM Potassium Level: 4.6 mmol/L -- Normal range between ( 3.5 and 5.1 ) Endocrinology 12/02/2019 12:50 PM HCG Urine Qualitative: Negative Patient Name:AMAURYYNAE I have received this information and was given the opportunity to ask questions. Patient/Ophthalmic Surgeon Name: Patient/Ophthalmic Surgeon Signature: Relationship to Patient: Clinician/Hospital Ophthalmic Surgeon Signature: Date: Electronically signed by Interface, [facility] [employer] Usher Cerner at 07/09/2022 12:14 PM CDT documented in this encounter Plan of Treatment Not on file documented as of this encounter Visit Diagnoses Not on filedocumented in this encounter Care Teams Evening Anchor Relationship Specialty Start Date End Date , Reina Ash, INDUSTRIAL TECHNICIAN [address] [place] [address] PCP - General Nurse Practitioner 11/14/22 10/01/23 documented as of this encounter
--- OUTSIDE RECORDS SUMMARY | 2024-10-08 09:28 | XMS_ITS | Encounter Summary ---
Author Organization [facility] ([place], [place], [place], [place]) Address [address] [place] [address] Care Team Providers Care Ship Manager Name Role Phone Reina Olmedo DASHAWN Primary Care Provider [phone] Encounter Details Date Type Department Care Team (Late st Contact Info) Description 07/27/2020 Transcribed Document [facility] [place] [facility] [address] [place] [address] ProviderVeronica MD [address] [place] [address] Social History Tobacco Use Types Packs/Day Years Used Date Smoking Tobacco: Never Assessed Comments Unknown Sex and Gender Information Value Date Recorded Sex Assigned at Not on file Legal Sex Female 4:58 PM CDT Gender Identity Not on file Sexual Orientation Not on file documented as of this encounter Miscellaneous Notes * Cerner Conversion Note - Historical ProviderMD - 07/27/2020 8:00 AM CDT Patient: YANE REBOLLEDO Age: 49 years Sex: Female : 1970 Associated Diagnoses: None Author: FABIENNE LU MD-[facility] Basic Information Agriculture Technician: Rosa Jean-Baptiste MD Chief Complaint Pre-op clearance; 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 History of Present Illness 49 year old female with history of HTN, DMII, former smoker (quit 1999), ROSIO, moderate obesity with abnormal uterine bleeding is planning hysterectomy 08/21/20. She presented to Dr. Jean-Baptiste for cardiac clearance. Found to have mild tachycardia on arrival to the clinic. She denies chest pain, palpitations. She complains of chronic FC II/III dyspnea. GXT Myoview on 07/13/20: revealing stress-induced anterior and apical wall defect. ECHO: 07/11/20: EF 55%. Impaired Left ventricular relaxation. Review of Systems Constitutional: Negative except as documented in history of present illness. Eye: Negative except as documented in history of present illness. Ear/Nose/Mouth/Throat: Negative except as documented in history of present illness. Respiratory: Negative except as documented in history of present illness. Cardiovascular: Negative except as documented in history of present illness. Gastrointestinal: Negative except as documented in history of present illness. Genitourinary: Negative except as documented in history of present illness. Hematology/Lymphatics: Negative except as documented in history of present illness. Endocrine: Negative except as documented in history of present illness. Immunologic: Negative except as documented in history of present illness. Musculoskeletal: Negative except as documented in history of present illness. Integumentary: Negative except as documented in history of present illness. Neurologic: Alert and oriented X4. Psychiatric: Negative except as documented in history of present illness. Health Status No qualifying data available Home Medications (11) Active aspirin 81 mg oral delayed release tablet 81 mg = 1 Tab, Oral, Daily citalopram 10 mg oral tablet 10 mg = 1 Tab, Oral, Daily DULoxetine 60 mg, Oral, Daily glimepiride 2 mg, Oral, Daily hydroCHLOROthiazide-losartan 12.5 mg-50 mg oral tablet 1 Tab, Oral, BID levothyroxine 125 mcg (0.125 mg) oral tablet 125 mcg = 1 Tab, Oral, Daily metformin 500 mg oral tablet 500 mg = 1 Tab, Oral, BID Mobic 15 mg oral tablet 15 mg = 1 Tab, Oral, Daily norethindrone 0.35 mg oral tablet 0.35 mg = 1 Tab, Oral, Daily simvastatin 20 mg oral tablet 40 mg = 2 Tab, Oral, At Bedtime Vitamin D with Minerals oral tablet 1 Tab, Oral, Daily Allergies: Allergic Reactions (Selected) No Known Allergies Current medications: (Selected) Documented Medications Documented DULoxetine: 60 mg, Oral, Daily, 0 Refill(s) Mobic 15 mg oral tablet: 1 Tab, Oral, Daily, 0 Refill(s) Vitamin D with Minerals oral tablet: 1 Tab, Oral, Daily, 30 Tab, 0 Refill(s) aspirin 81 mg oral delayed release tablet: 1 Tab, Oral, Daily, 30 Tab, 0 Refill(s) citalopram 10 mg oral tablet: 1 Tab, Oral, Daily, 0 Refill(s) glimepiride: 2 mg, Oral, Daily, 0 Refill(s) hydroCHLOROthiazide-losartan 12.5 mg-50 mg oral tablet: 1 Tab, Oral, BID, 0 Refill(s) levothyroxine 125 mcg (0.125 mg) oral tablet: 1 Tab, Oral, Daily, 30 Tab, 0 Refill(s) metformin 500 mg oral tablet: 1 Tab, Oral, BID, 180 Tab, 0 Refill(s) norethindrone 0.35 mg oral tablet: 1 Tab, Oral, Daily, 0 Refill(s) simvastatin 20 mg oral tablet: 2 Tab, Oral, At Bedtime, 30 Tab, 0 Refill(s) Problem list: All Problems Arthritis / [id number] / Confirmed Diabetes / [id number] / Confirmed History of obstructive sleep apnea / [id number] / Confirmed Hyperlipidemia / [id number] / Confirmed Hypertension / [id number] / Confirmed Hypothyroid / [id number] / Confirmed Anxiety and depression / [id number] / Confirmed Histories No education data available. Social & Psychosocial Habits Alcohol 12/02/2019 Alcohol Use History, Social Habits No Substance Abuse 12/02/2019 Recreational Drug Use History No Recreational Drug Use Last 12 Months No Tobacco 06/30/2014 Tobacco Use Within Last Twelve Months No Smoking Status Former smoker Month Tobacco Last Used quit 1999 Past Medical History: Active HLD - Hyperlipidemia (742383562) HTN - Hypertension (7683965154) Type 2 diabetes mellitus (878642695) Family History: Mother Heart disease Procedure history: several back surgeries. D&C. uterine ablation. Physical Examination VS/Measurements No qualifying data available Review / Management ECHO 07/11/2020 Impression: Normal sized left ventricle. Mildly increased left ventricular wall thickness. Moderate, asymmetrical left ventricular hypertrophy. Normal left ventricular systolic function. Estimated ejection fraction 55% +/- 5%. Impaired left ventricular relaxation, normal left atrial pressure. No hemodynamically significant valvular heart disease. Measurements Summary: LVEDd: 3.96 cm LVESd: 2.8 cm IVSEd: 1.51 cm AO Root:2.2 cm LVPWd: 1.2 cm GXT Myoview stress test 07/13/20 IMPRESSION: 1. Abnormal GXT Myoview stress test. 2. Poor exertional tolerance. Patient could only do 3.9 METS on a standard Giovanni protocol. 3. Patient had abnormal tomographic images for stress-induced anterior and apical wall defect on 2 views, needs further cardiac risk stratification. Results review: No qualifying data available. Impression and Plan IMPRESSION: Chronic FC II/III dyspnea w/ baseline morbid obesity. Abnormal GXT myoview at low exercise capacity-Anterior and apical wall reversible defect @ 3.9 METs. EF 55%, valves OK per ECHO. Recent sinus tachycardia-sx improved, resolved w/ metoprolol. 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 PLAN; Left Heart Catheterization w/ possibility of PCI via right radial artery. Risks and Benefits discussed. Patient wishes to proceed. Minimize NSAIDS. IVF hydration. Hold Metformin 48 hr post cath. Discussed low carb diet (100 gram/d), portion control (30% less every dinner), Na restriction, referral to casting and curing operator. Follow-up w/ ROSIO MD. Encourage pt to discuss SGLT2i (Involkana, Farxiga)/GLP1a w/ primary provider. documented in this encounter Plan of Treatment Not on file documented as of this encounter Visit Diagnoses Not on filedocumented in this encounter Care Teams Ship Manager Relationship Specialty Start Date End Date Reina Olmedo, OLERICULTURE TEACHER [address] [place] [address] PCP - General Nurse Practitioner 11/14/22 10/01/23 documented as of this encounter
--- OUTSIDE RECORDS SUMMARY | 2024-10-08 09:28 | XMS_ITS | Encounter Summary ---
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 [place] [facility] [address] [place] [address] ProviderVeronica MD [address] [place] [address] Social History Tobacco Use Types Packs/Day Years Used Date Smoking Tobacco: Never Assessed Comments Unknown Sex and Gender Information Value Date Recorded Sex Assigned at Not on file Legal Sex Female 4:58 PM CDT Gender Identity Not on file Sexual Orientation Not on file documented as of this encounter Miscellaneous Notes * Cerner Conversion Note - Veronica ProviderMD - 07/27/2020 2:50 PM CDT [facility] [place] [address] YANE REBOLLEDO :1970 Visit Time:07/27/2020 Your Visit Summary Your Care Team Admitting Physician - FABIENNE LU MD-CAR Attending Physician - FABIENNE LU MD-CAR Primary Care Physician - WILL BRIDGES, -[facility] Referring Physician - FABIENNE LU MD-CAR Your Diagnosis Abnormal result of other cardiovascular function study, Abnormal result of other cardiovascular function study Discharge Vitals Heart Rate (Monitored) 82 Respiratory Rate 18 Blood Pressure 119/71 What to do next Instructions From Your Care Team Restart Metformin Friday. Follow radial site instruction sheet given and reviewed. No driving until tomorrow night. Shower tomorrow night. No soaking in water for 5 days. Remove dressing in shower tomorrow. For bleeding or swelling right wrist-hold pressure and call 911. Follow-Up Appointments Follow Up with VALENTE NINA MD-CAR When Within 1 to 2 weeks Comments Follow-up as instructed Where: [address] [facility] [address] [place] [address]- Medications What How Much When Instructions Next Dose aspirin (aspirin 81 mg oral delayed release tablet) 1 Tablet(s) Oral Every Day citalopram (citalopram 10 mg oral tablet) 1 Tablet(s) Oral At Bedtime DULoxetine 60 Milligram(s) Oral Every Day ergocalciferol (ergocalciferol 50,000 intl units (1.25 mg) oral capsule) 1 Capsule(s) Oral Weekly glimepiride 2 Milligram(s) Oral Every Day hydrochlorothiazide-losartan (hydroCHLOROthiazide-losartan 12.5 mg-50 mg oral tablet) 1 Tablet(s) Oral Two Times A Day levothyroxine (levothyroxine 125 mcg (0.125 mg) oral tablet) 1 Tablet(s) Oral Every Day medroxyPROGESTERone (medroxyPROGESTERone 10 mg oral tablet) 1 Tablet(s) Oral Every Day meloxicam (Mobic 15 mg oral tablet) 1 Tablet(s) Oral Every Day metFORMIN (metformin 500 mg oral tablet) 2 Tablet(s) Oral Two Times A Day metoprolol (Metoprolol Tartrate) 25 Milligram(s) Oral Two Times A Day simvastatin (simvastatin 20 mg oral tablet) [...] Please dispose of unused and medications per your retail pharmacy guidance. Allergies No Known Allergies Immunizations This Visit No Immunizations Found Education Materials It???s Cold and Flu Season ??? How are you protecting yourself? The start of each year is often met with the peak of cold and flu season. This year is no different except that we are facing the new strain of coronavirus, COVID-19, and the widespread media attention this public health outbreak is causing. It is understandable that many are feeling overwhelmed by the thought of catching coronavirus and are concerned about how to best care for ourselves and our loved ones during this challenging time. Take comfort in knowing there are simple things you can do each and every day to help ensure your health is protected. Scrub a dub! Wash your hands! As simple as this sounds, it truly is the most effective way to stop the spread of germs. Be sure to use soap, and to make sure you are being thorough enough, sing the ???Happy Birthday?? song which is just the right length to ensure a thorough cleaning of your hands. Wash all parts of your hands, including the ???webs?? between your fingers and thumbs. When without, use a squeeze! If you are unable to get to a sink for soap and water to thoroughly wash your hands, use hand splitter head. While handwashing is best, hand splitter head helps to reduce the spread of germs when you are out and about. Have hand splitter head in several locations so you can always have some on hand ??? think about placing some bottles in your car, your purse, your suitcase, the diaper bag, or even in your coat pocket. Don???t rub, don???t touch! As tempting as it is to rub those scratchy eyes during allergy season or to rub a runny nose, don???t. In fact, if you can, try to avoid touching your face as much as possible, especially with unclean hands. Our eyes, nose, and mouth are easy access points for germs to enter our bodies. When in doubt, don???t go out! If you are feeling under the weather, stay home. If your child is feeling sick, keep them home. It is so important to not only rest when you are starting to get sick or are already under the weather, but also staying home and away from others helps to keep people from also getting sick. Don???t Epping It! Sneezing this time of year is part of life, especially if you suffer from allergies or do have the cold or flu. To help minimize the spread of germs from sneezing or coughing, use a Kleenex or your elbow to protect against rogue spray and to help keep your hands clean. And remember, most people will have a runny nose, coughs and sneezes these days either from seasonal allergies, the cold or the flu, but if you do feel ill or feel like you need some help to feel better, please contact your Primary Care Provider to determine the best course of treatment for you which may include home care for mild cases or making an appointment to be seen to address more moderate needs. To find a PCP near you, please visit [employer] [email or web address]. May 28, 2019 Carbohydrate Counting for Diabetes Mellitus, Adult Carbohydrate counting is a method of keeping track of how many carbohydrates you eat. Eating carbohydrates naturally increases the amount of sugar (glucose) in the blood. Counting how many carbohydrates you eat helps keep your blood glucose within normal limits, which helps you manage your diabetes (diabetes mellitus). It is important to know how many carbohydrates you can safely have in each meal. This is different for every person. A diet and clinical nutritionist (registered dietitian) can help you make a meal plan and calculate how many carbohydrates you should have at each meal and snack. Carbohydrates are found in the following foods: ??? Grains, such as breads and cereals. ??? Dried beans and soy products. ??? Starchy vegetables, such as potatoes, peas, and corn. ??? Fruit and fruit juices. ??? Milk and yogurt. ??? Sweets and snack foods, such as cake, cookies, candy, chips, and soft drinks. How do I count carbohydrates? There are two ways to count carbohydrates in food. You can use either of the methods or a combination of both. Reading Nutrition Facts on packaged food The Nutrition Facts list is included on the labels of almost all packaged foods and beverages in the [place] It includes: ??? The serving size. ??? Information about nutrients in each serving, including the grams (g) of carbohydrate per serving. To use the ???Nutrition Facts : ??? Decide how many servings you will have. ??? Multiply the number of servings by the number of carbohydrates per serving. ??? The resulting number is the total amount of carbohydrates that you will be having. Learning standard serving sizes of other foods When you eat carbohydrate foods that are not packaged or do not include Nutrition Facts on the label, you need to measure the servings in order to count the amount of carbohydrates: ??? Measure the foods that you will eat with a food scale or measuring cup, if needed. ??? Decide how many standard-size servings you will eat. ??? Multiply the number of servings by 15. Most carbohydrate-rich foods have about 15 g of carbohydrates per serving. ? For example, if you eat 8 oz (170 g) of strawberries, you will have eaten 2 servings and 30 g of carbohydrates (2 servings x 15 g = 30 g). ??? For foods that have more than one food mixed, such as soups and casseroles, you must count the carbohydrates in each food that is included. The following list contains standard serving sizes of common carbohydrate-rich foods. Each of these servings has about 15 g of carbohydrates: ? hamburger bun or ?? [place] muffin. ? oz (15 mL) syrup. ? oz (14 g) jelly. ??? 1 slice of bread. ??? 1 six-inch tortilla. ??? 3 oz (85 g) cooked rice or pasta. ??? 4 oz (113 g) cooked dried beans. ??? 4 oz (113 g) starchy vegetable, such as peas, corn, or potatoes. ??? 4 oz (113 g) hot cereal. ??? 4 oz (113 g) mashed potatoes or ?? of a large baked potato. ??? 4 oz (113 g) canned or frozen fruit. ??? 4 oz (120 mL) fruit juice. ??? 4???6 crackers. ??? 6 chicken nuggets. ??? 6 oz (170 g) unsweetened dry cereal. ??? 6 oz (170 g) plain fat-free yogurt or yogurt sweetened with artificial sweeteners. ??? 8 oz (240 mL) milk. ??? 8 oz (170 g) fresh fruit or one small piece of fruit. ??? 24 oz (680 g) popped popcorn. Example of carbohydrate counting Sample meal ??? 3 oz (85 g) chicken breast. ??? 6 oz (170 g) brown rice. ??? 4 oz (113 g) corn. ??? 8 oz (240 mL) milk. ??? 8 oz (170 g) strawberries with sugar-free whipped topping. Carbohydrate calculation 1. Identify the foods that contain carbohydrates: ??? Rice. ??? [place]. ??? Milk. ??? Strawberries. 2. Calculate how many servings you have of each food: ??? 2 servings rice. ??? 1 serving corn. ??? 1 serving milk. ??? 1 serving strawberries. 3. Multiply each number of servings by 15 g: ??? 2 servings rice x 15 g = 30 g. ??? 1 serving corn x 15 g = 15 g. ??? 1 serving milk x 15 g = 15 g. ??? 1 serving strawberries x 15 g = 15 g. 4. Add together all of the amounts to find the total grams of carbohydrates eaten: ??? 30 g + 15 g + 15 g + 15 g = 75 g of carbohydrates total. Summary ??? Carbohydrate counting is a method of keeping track of how many carbohydrates you eat. ??? Eating carbohydrates naturally increases the amount of sugar (glucose) in the blood. ??? Counting how many carbohydrates you eat helps keep your blood glucose within normal limits, which helps you manage your diabetes. ??? A diet and clinical nutritionist (registered dietitian) can help you make a meal plan and calculate how many carbohydrates you should have at each meal and snack. This information is not intended to replace advice given to you by your health care provider. Make sure you discuss any questions you have with your health care provider. Document Revised: 10/02/2017 Document Reviewed: 08/21/2016 [employer] Patient Education ?? 2020 [employer] Diabetes Mellitus and Nutrition, Adult When you have diabetes (diabetes mellitus), it is very important to have healthy eating habits because your blood sugar (glucose) levels are greatly affected by what you eat and drink. Eating healthy foods in the appropriate amounts, at about the same times every day, can help you: ??? Control your blood glucose. ??? Lower your risk of heart disease. ??? Improve your blood pressure. ??? Reach or maintain a healthy weight. Every person with diabetes is different, and each person has different needs for a meal plan. Your health care provider may recommend that you work with a diet and clinical nutritionist (dietitian) to make a meal plan that is best for you. Your meal plan may vary depending on factors such as: ??? The calories you need. ??? The medicines you take. ??? Your weight. ??? Your blood glucose, blood pressure, and cholesterol levels. ??? Your activity level. ??? Other health conditions you have, such as heart or kidney disease. How do carbohydrates affect me? Carbohydrates, also called carbs, affect your blood glucose level more than any other type of food. Eating carbs naturally raises the amount of glucose in your blood. Carb counting is a method for keeping track of how many carbs you eat. Counting carbs is important to keep your blood glucose at a healthy level, especially if you use insulin or take certain oral diabetes medicines. It is important to know how many carbs you can safely have in each meal. This is different for every person. Your dietitian can help you calculate how many carbs you should have at each meal and for each snack. Foods that contain carbs include: ??? Bread, cereal, rice, pasta, and crackers. ??? Potatoes and corn. ??? Peas, beans, and lentils. ??? Milk and yogurt. ??? Fruit and juice. ??? Desserts, such as cakes, cookies, ice cream, and candy. How does alcohol affect me? Alcohol can cause a sudden decrease in blood glucose (hypoglycemia), especially if you use insulin or take certain oral diabetes medicines. Hypoglycemia can be a life-threatening condition. Symptoms of hypoglycemia (sleepiness, dizziness, and confusion) are similar to symptoms of having too much alcohol. If your health care provider says that alcohol is safe for you, follow these guidelines: ??? Limit alcohol intake to no more than 1 drink per day for non women and 2 drinks per day for men. One drink equals 12 oz of beer, 5 oz of wine, or 1?? oz of hard liquor. ??? Do not drink on an empty stomach. ??? Keep yourself hydrated with water, diet soda, or unsweetened iced tea. ??? Keep in mind that regular soda, juice, and other mixers may contain a lot of sugar and must be counted as carbs. What are tips for following this plan? Reading food labels ??? Start by checking the serving size on the Nutrition Facts label of packaged foods and drinks. The amount of calories, carbs, fats, and other nutrients listed on the label is based on one serving of the item. Many items contain more than one serving per package. ??? Check the total grams (g) of carbs in one serving. You can calculate the number of servings of carbs in one serving by dividing the total carbs by 15. For example, if a food has 30 g of total carbs, it would be equal to 2 servings of carbs. ??? Check the number of grams (g) of saturated and trans fats in one serving. Choose foods that have low or no amount of these fats. ??? Check the number of milligrams (mg) of salt (sodium) in one serving. Most people should limit total sodium intake to less than 2,300 mg per day. ??? Always check the nutrition information of foods labeled as low-fat or nonfat . These foods may be higher in added sugar or refined carbs and should be avoided. ??? Talk to your dietitian to identify your daily goals for nutrients listed on the label. Shopping ??? Avoid buying canned, premade, or processed foods. These foods tend to be high in fat, sodium, and added sugar. ??? Shop around the outside edge of the grocery store. This includes fresh fruits and vegetables, bulk grains, fresh meats, and fresh dairy. Cooking ??? Use low-heat cooking methods, such as baking, instead of high-heat cooking methods like deep frying. ??? Cook using healthy oils, such as olive, canola, or sunflower oil. ??? Avoid cooking with butter, cream, or high-fat meats. Meal planning ??? Eat meals and snacks regularly, preferably at the same times every day. Avoid going long periods of time without eating. ??? Eat foods high in fiber, such as fresh fruits, vegetables, beans, and whole grains. Talk to your dietitian about how many servings of carbs you can eat at each meal. ??? Eat 4???6 ounces (oz) of lean protein each day, such as lean meat, chicken, fish, eggs, or tofu. One oz of lean protein is equal to: ? 1 oz of meat, chicken, or fish. ? 1 egg. ? ?? cup of tofu. ??? Eat some foods each day that contain healthy fats, such as avocado, nuts, seeds, and fish. Lifestyle ??? Check your blood glucose regularly. ??? Exercise regularly as told by your health care provider. This may include: ? 150 minutes of moderate-intensity or vigorous-intensity exercise each week. This could be brisk walking, biking, or water aerobics. ? Stretching and doing strength exercises, such as yoga or weightlifting, at least 2 times a week. ??? Take medicines as told by your health care provider. ??? Do not use any products that contain nicotine or tobacco, such as cigarettes and e-cigarettes. If you need help quitting, ask your health care provider. ??? Work with a counselor or evaporator repairer to identify strategies to manage stress and any emotional and social challenges. Questions to ask a health care provider ??? Do I need to meet with a evaporator repairer? Do I need to meet with a dietitian? What number can I call if I have questions? When are the best times to check my blood glucose? Where to find more information: ??? [place] [employer]: diabetes.org ??? Academy of Nutrition and Dietetics: www.eatright.org ??? National [place] of Diabetes and Digestive and Kidney Diseases (NIH): www.niddk.nih.gov Summary ??? A healthy meal plan will help you control your blood glucose and maintain a healthy lifestyle. ??? Working with a diet and clinical nutritionist (dietitian) can help you make a meal plan that is best for you. ??? Keep in mind that carbohydrates (carbs) and alcohol have immediate effects on your blood glucose levels. It is important to count carbs and to use alcohol carefully. This information is not intended to replace advice given to you by your health care provider. Make sure you discuss any questions you have with your health care provider. Document Revised: 02/20/2018 Document Reviewed: 04/14/2017 [employer] Patient Education ?? 2020 [employer] Coronary Angiogram A coronary angiogram is an X-ray procedure that is used to examine the arteries in the heart. Contrast dye is injected through a long, thin tube (catheter) into these arteries. Then X-rays are taken to show any blockage in these arteries. You may have this procedure if you: ??? Are having chest pain, or other symptoms of angina, and you are at risk for heart disease. ??? Have an abnormal stress test or test of your heart's electrical activity (electrocardiogram, or ECG). ??? Have chest pain and heart failure. ??? Are having irregular heart rhythms. A coronary angiogram or heart catheterization can show if you have valve disease or a disease of the aorta. This procedure can also be used to check the overall function of your heart muscle. Let your health care provider know about: ??? Any allergies you have, including allergies to medicines or contrast dye. ??? All medicines you are taking, including vitamins, herbs, eye drops, creams, and khqj-ref-qrbppbw medicines. ??? Any problems you or family members have had with anesthetic medicines. ??? Any blood disorders you have. ??? Any surgeries you have had. ??? Any history of kidney problems or kidney failure. ??? Any medical conditions you have. ??? Whether you are or may be . ??? Whether you are . What are the risks? Generally, this is a safe procedure. However, problems may occur, including: ??? Infection. ??? Allergic reaction to medicines or dyes that are used. ??? Bleeding from the insertion site or other places. ??? Damage to nearby structures, such as blood vessels, or damage to kidneys from contrast dye. ??? Irregular heart rhythms. ??? Stroke (rare). ??? Heart attack (rare). What happens before the procedure? Staying hydrated Follow instructions from your health care provider about hydration, which may include: ??? Up to 2 hours before the procedure ??? you may continue to drink clear liquids, such as water, clear fruit juice, black coffee, and plain tea. Eating and drinking restrictions Follow instructions from your health care provider about eating and drinking, which may include: ??? 8 hours before the procedure ??? stop eating heavy meals or foods, such as meat, fried foods, or fatty foods. ??? 6 hours before the procedure ??? stop eating light meals or foods, such as toast or cereal. ??? 6 hours before the procedure ??? stop drinking milk or drinks that contain milk. ??? 2 hours before the procedure ??? stop drinking clear liquids. Medicines Ask your health care provider about: ??? Changing or stopping your regular medicines. This is especially important if you are taking diabetes medicines or blood thinners. ??? Taking medicines such as aspirin and ibuprofen. These medicines can thin your blood. Do not take these medicines unless your health care provider tells you to take them. Aspirin may be recommended before coronary angiograms even if you do not normally take it. ??? Taking kdhz-fht-hoxtoli medicines, vitamins, herbs, and supplements. General instructions ??? Do not use any products that contain nicotine or tobacco for at least 4 weeks before the procedure. These products include cigarettes, e-cigarettes, and chewing tobacco. If you need help quitting, ask your health care provider. ??? You may have an exam or testing. ??? Plan to have someone take you home from the hospital or clinic. ??? If you will be going home right after the procedure, plan to have someone with you for 24 hours. ??? Ask your health care provider: ? How your insertion site will be marked. ? What steps will be taken to help prevent infection. These may include: ? Removing hair at the insertion site. ? Washing skin with a germ-killing soap. ? Taking antibiotic medicine. What happens during the procedure? You will lie on your back on an X-ray table. ??? An IV will be inserted into one of your veins. ??? Electrodes will be placed on your chest. ??? You will be given one or more of the following: ? A medicine to help you relax (sedative). ? A medicine to numb the catheter insertion area (local anesthetic). ??? You will be connected to a continuous ECG monitor. ??? The catheter will be inserted into an artery in one of these areas: ? Your groin area in your upper thigh. ? Your wrist. ? The fold of your arm, near your elbow. ??? An X-ray procedure (fluoroscopy) will be used to help guide the catheter to the opening of the blood vessel to be used. ??? A dye will be injected into the catheter and X-rays will be taken. The dye will help to show any narrowing or blockages in the heart arteries. ??? Tell your health care provider if you have chest pain or trouble breathing. ??? If blockages are found, another procedure may be done to open the artery. ??? The catheter will be removed after the fluoroscopy is complete. ??? A bandage (dressing) will be placed over the insertion site. Pressure will be applied to stop bleeding. ??? The IV will be removed. The procedure may vary among health care providers and hospitals. What happens after the procedure? Your blood pressure, heart rate, breathing rate, and blood oxygen level will be monitored until you leave the hospital or clinic. ??? You will need to lie still for a few hours, or for as long as told by your health care provider. ? If the procedure is done through the groin, you will be told not to bend or cross your legs. ??? The insertion site and the pulse in your foot or wrist will be checked often. ??? More blood tests, X-rays, and an ECG may be done. ??? Do not drive for 24 hours if you were given a sedative during your procedure. Summary ??? A coronary angiogram is an X-ray procedure that is used to examine the arteries in the heart. ??? Contrast dye is injected through a long, thin tube (catheter) into each artery. ??? Tell your health care provider about any allergies you have, including allergies to contrast dye. ??? After the procedure, you will need to lie still for a few hours and drink plenty of fluids. This information is not intended to replace advice given to you by your health care provider. Make sure you discuss any questions you have with your health care provider. Document Revised: 09/30/2019 Document Reviewed: 09/30/2019 [employer] Patient Education ?? 2020 [employer] Moderate Conscious Sedation, Adult, Care After These instructions provide you with information about caring for yourself after your procedure. Your health care provider may also give you more specific instructions. Your treatment has been planned according to current medical practices, but problems sometimes occur. Call your health care provider if you have any problems or questions after your procedure. What can I expect after the procedure? After your procedure, it is common: ??? To feel sleepy for several hours. ??? To feel clumsy and have poor balance for several hours. ??? To have poor judgment for several hours. ??? To vomit if you eat too soon. Follow these instructions at home: For at least 24 hours after the procedure: ??? Do not: ? Participate in activities where you could fall or become injured. ? Drive. ? Use heavy machinery. ? Drink alcohol. ? Take sleeping pills or medicines that cause drowsiness. ? Make important decisions or sign legal documents. ? Take care of children on your own. ??? Rest. Eating and drinking ??? Follow the diet recommended by your health care provider. ??? If you vomit: ? Drink water, juice, or soup when you can drink without vomiting. ? Make sure you have little or no nausea before eating solid foods. General instructions ??? Have a responsible adult stay with you until you are awake and alert. ??? Take bcvu-bsc-munakol and prescription medicines only as told by your health care provider. ??? If you smoke, do not smoke without supervision. ??? Keep all follow-up visits as told by your health care provider. This is important. Contact a health care provider if: ??? You keep feeling nauseous or you keep vomiting. ??? You feel light-headed. ??? You develop a rash. ??? You have a fever. Get help right away if: ??? You have trouble breathing. This information is not intended to replace advice given to you by your health care provider. Make sure you discuss any questions you have with your health care provider. Document Revised: 02/20/2018 Document Reviewed: 06/29/2016 [employer] Patient Education ?? 2020 [employer]. Radial Site Care This sheet gives you information about how to care for yourself after your procedure. Your health care provider may also give you more specific instructions. If you have problems or questions, contact your health care provider. What can I expect after the procedure? After the procedure, it is common to have: ??? Bruising and tenderness at the catheter insertion area. Follow these instructions at home: Medicines ??? Take capy-alc-fkzplbc and prescription medicines only as told by your health care provider. Insertion site care ??? Follow instructions from your health care provider about how to take care of your insertion site. Make sure you: ? Wash your hands with soap and water before you change your bandage (dressing). If soap and water are not available, use hand splitter head. ? Change your dressing as told by [...] you to do that. ??? Check your insertion site every day for signs of infection. Check for: ? Redness, swelling, or pain. ? Fluid or blood. ? Pus or a bad smell. ? Warmth. ??? Do not take baths, swim, or use a hot tub until your health care provider approves. ??? You may shower 24???48 hours after the procedure, or as directed by your health care provider. ? Remove the dressing and gently wash the site with plain soap and water. ? Pat the area dry with a clean towel. ? Do not rub the site. That could cause bleeding. ??? Do not apply powder or lotion to the site. Activity ??? For 24 hours after the procedure, or as directed by your health care provider: ? Do not flex or bend the affected arm. ? Do not push or pull heavy objects with the affected arm. ? Do not drive yourself home from the hospital or clinic. You may drive 24 hours after the procedure unless your health care provider tells you not to. ? Do not operate machinery or power tools. ??? Do not lift anything that is heavier than 10 lb (4.5 kg), or the limit that you are told, until your health care provider says that it is safe. ??? Ask your health care provider when it is okay to: ? Return to work or school. ? Resume usual physical activities or sports. ? Resume sexual activity. General instructions ??? If the catheter site starts to bleed, raise your arm and put firm pressure on the site. If the bleeding does not stop, get help right away. This is a medical emergency. ??? If you went home on the same day as your procedure, a responsible adult should be with you for the first 24 hours after you arrive home. ??? Keep all follow-up visits as told by your health care provider. This is important. Contact a health care provider if: ??? You have a fever. ??? You have redness, swelling, or yellow drainage around your insertion site. Get help right away if: ??? You have unusual pain at the radial site. ??? The catheter insertion area swells very fast. ??? The insertion area is bleeding, and the bleeding does not stop when you hold steady pressure on the area. ??? Your arm or hand becomes pale, cool, tingly, or numb. These symptoms may represent a serious problem that is an emergency. Do not wait to see if the symptoms will go away. Get medical help right away. Call your local emergency services (911 in the [place] Do not drive yourself to the hospital. Summary ??? After the procedure, it is common to have bruising and tenderness at the site. ??? Follow instructions from your health care provider about how to take care of your radial site wound. Check the wound every day for signs of infection. ??? Do not lift anything that is heavier than 10 lb (4.5 kg), or the limit that you are told, until your health care provider says that it is safe. This information is not intended to replace advice given to you by your health care provider. Make sure you discuss any questions you have with your health care provider. Document Revised: 04/15/2018 Document Reviewed: 04/15/2018 [employer] Patient Education ?? 2020 [employer] Transradial Angiogram A transradial angiogram is an imaging test that is used to examine blood vessels. For this test, a long, thin tube (catheter) is inserted into an artery in the wrist (radial artery) and moved into the blood vessels that need to be checked. A dye (contrast dye) is injected into the blood vessels, and then X-rays are taken. The contrast dye makes the blood vessels show up better on X-rays to help your health care provider see any problems. You may have this test to check for problems that can affect blood flow through the blood vessels, such as: ??? A blocked or narrowed blood vessel. ??? A blood clot. ??? Abnormal connections between blood vessels. Tell a health care provider about: ??? Any allergies you have. ??? All medicines you are taking, including vitamins, herbs, eye drops, creams, and pvht-oab-nozokku medicines. ??? Any problems you or family members have had with anesthetic medicines. ??? Any blood disorders you have. ??? Any surgeries you have had. ??? Any medical conditions you have or have had. ??? Whether you are or may be . What are the risks? Generally, this is a safe procedure. However, problems may occur, including: ??? Infection. ??? Bleeding. ??? Allergic reactions to medicines or dyes. ??? Damage to other structures or organs, such as the blood vessels, lungs, or heart. ??? Blood clots. ??? Blood flow through the radial artery stopping or slowing down. This is rare. What happens before the procedure? Medicines Ask your health care provider about: ??? Changing or stopping your regular medicines. This is especially important if you are taking diabetes medicines or blood thinners. ??? Taking medicines such as aspirin and ibuprofen. These medicines can thin your blood. Do not take these medicines unless your health care provider tells you to take them. ??? Taking jiiu-qwh-vjjegod medicines, vitamins, herbs, and supplements. Exams and tests ??? You may have a physical exam. ??? You may have tests, including blood tests and X-rays. General instructions ??? Follow instructions from your health care provider about eating or drinking restrictions. ??? Do not use any products that contain nicotine or tobacco for at least 24 hours before the procedure. These products include cigarettes, e-cigarettes, and chewing tobacco. If you need help quitting, ask your health care provider. ??? Ask your health care provider: ? How your procedure site will be marked. ? What steps will be taken to help prevent infection. These may include: ? Washing skin with a germ-killing soap. ? Taking antibiotic medicine. ??? Plan to have someone take you home from the hospital or clinic. ??? If you will be going home right after the procedure, plan to have someone with you for 24 hours. What happens during the procedure? An IV will be inserted into one of your veins. ??? You may be given the following: ? A medicine to help you relax (sedative). ? A medicine that is injected into your wrist to numb the area near the radial artery (local anesthetic). ??? A needle will be inserted into your radial artery in your wrist. ??? A catheter will be inserted into your radial artery. The needle will help guide the catheter into your radial artery and will then be removed. ??? The catheter will be moved through your body to the desired area. An X-ray machine (fluoroscope) will help your health care provider place the catheter in the correct place in your body. ??? Contrast dye will be injected into the catheter and will travel to the blood vessels that are being examined. ??? X-ray images will be taken of how the dye flows through your blood vessels. While the images are being taken, you may be given instructions on breathing, swallowing, moving, or talking. ??? The catheter will be removed from your body. ??? A pressure (compression) wrap will be applied to your wrist to stop bleeding. The procedure may vary among health care providers and hospitals. What happens after the procedure? You will need to keep your wrist still for as long as told by your health care provider. ??? The pressure applied to your wrist will be gradually decreased until the compression wrap is removed. ??? Your blood pressure, heart rate, breathing rate, and blood oxygen level will be monitored until you leave the hospital or clinic. ??? You may continue to get fluids and medicines through an IV. ??? You may have soreness and bruising in your wrist. This is normal. This should get better within about 1 week. ??? Do not drive for 24 hours if you were given a sedative during your procedure. ??? You may have to wear compression stockings. These stockings help to prevent blood clots and lessen swelling in your legs. Summary ??? A transradial angiogram is an imaging test that is used to examine blood vessels and to check for problems that can affect blood flow. ??? For this test, a catheter is inserted into an artery in the wrist (radial artery) and moved into the blood vessels being examined. A dye (contrast dye) is injected into the blood vessels, and then X-rays are taken. ??? Before the procedure, follow instructions from your health care provider about changing or stopping your medicines. ??? Before the procedure, follow instructions from your health care provider about eating or drinking restrictions. ??? If you will be going home right after the procedure, plan to have someone take you home and stay with you for 24 hours. This information is not intended to replace advice given to you by your health care provider. Make sure you discuss any questions you have with your health care provider. Document Revised: 02/01/2019 Document Reviewed: 02/01/2019 [employer] Patient Education ?? 2020 [employer] Emergency Awareness and Preventative Care STROKE is [...] Assistance with quitting is available by contacting 2-618-FNADNOW. This is a free resource providing counseling, [...] CPR? There are two easy steps: Call 9-1-1 if you see a teen or adult [...] This Visit (last charted value for your 07/27/2020 visit) Microbiology 07/25/2020 10:49 AM SARS-CoV-2 (COVID19 PCR): Negative General Chemistry 07/27/2020 8:35 AM Creatinine Level: 1.60 mg/dL -- Normal range between ( 0.55 and 1.02 ) eGFR : 42 mL/min/1.73m2 eGFR NonAfrican: 35 mL/min/1.73m2 Patient Name:YANE REBOLLEDO I have received and understand this information and was given the opportunity to ask questions. Patient/[employer] Police Sergeant Name: Patient/[employer] Police Sergeant Signature: Relationship to Patient: Clinician/Hospital [employer] Police Sergeant Signature: Date: documented in this encounter Plan of Treatment Not on file documented as of this encounter Visit Diagnoses Not on filedocumented in this encounter Care Teams Bird Cage Assembler Relationship Specialty Start Date End Date Reina, SHUTTLE CAR OPERATOR [address] [place] [address] PCP - General Nurse Practitioner 11/14/22 10/01/23 documented as of this encounter
--- OUTSIDE RECORDS SUMMARY | 2024-10-08 09:28 | XMS_ITS | Encounter Summary ---
Author Organization [facility] ([place], [place], [place], [place]) Address [address] [place] [address] Care Team Providers Care Insurance Job Titles Name Role Phone Unavailable Primary Care Provider Unavailabl e Reason for Visit * Reason Comments Medication Refill Encounter Details Date Type Department Care Team (Late st Contact Info) Description 02/03/2024 Refill [facility] Primary Care [address] [address] Reina Olmedo, ENGINEER BOOSTER AND EXHAUSTER [address] [place] [address] Social History Tobacco Use Types Packs/Day Years Used Date Smoking Tobacco: Former Smokeless Tobacco: Never Alcohol Use Standard Drinks/Week Comments Never 0 (1 standard drink = 0.6 oz pur e alcohol) Food Insecurity Answer Date Recorded Food run out past 12 months Not on file 03/24 Food did not last past 12 months Not on file 04/09/2023 Employment Answer Date Recorded Help finding and keeping a job Not on file 0 04/09/2023 Family and Community Support Answer Danny e Recorded Help with Day to Day Activities Not on file 04/09/2023 Feeling Lonely or Isolated Not on file 04/09 Educational Attainment Answer Date Joshua rded Speak language other than Icelandic at home Not on file 04/09/2023 Want help with school or training Not on file 04/09/2023 Substance Use Answer Date Recorded Used prescription meds for non-medical reasons N ot on file 04/09/2023 Used illegal drugs past 12 months Not on file 04/09/2023 Comments No Sex and Gender Information Value Date Recorded Sex Assigned at Not on file Legal Sex Female 4:58 PM CDT Gender Identity Not on file Sexual Orientation Not on file documented as of this encounter Plan of Treatment Not on file documented as of this encounter Visit Diagnoses Not on filedocumented in this encounter
--- OUTSIDE RECORDS SUMMARY | 2024-10-08 09:28 | XMS_ITS | Encounter Summary ---
Author Organization [employer] ([place], [place], [place], [place]) Address [address] [place] [address] Care Team Providers Care Applications Trainer Name Role Phone Reina Olmedo CHEST PAINTING LEADER Primary Care Provider [phone] Reason for Visit * Reason Onset Date Comments Medication Refill 02/25/2023 Encounter Details Date Type Department Care Team (Late st Contact Info) Description 02/25/2023 Refill [facility] Primary Care [facility] [address] [place] [address] Reina Olmedo CHEST PAINTING LEADER [address] [place] [address] Anxiety and depression Social History Tobacco Use Types Packs/Day Years Used Date Smoking Tobacco: Former Smokeless Tobacco: Never Alcohol Use Standard Drinks/Week Comments Never 0 (1 standard drink = 0.6 oz pur e alcohol) Comments Unknown Sex and Gender Information Value Date Recorded Sex Assigned at Not on file Legal Sex Female 4:58 PM CDT Gender Identity Not on file Sexual Orientation Not on file documented as of this encounter Plan of Treatment Not on file documented as of this encounter Visit Diagnoses Diagnosis Anxiety and depression documented in this encounter Care Teams Applications Trainer Relationship Specialty Start Date End Date Reina Olmedo APRN [address] [place] [address] PCP - General Nurse Practitioner 11/14/22 10/01/23 documented as of this encounter
--- OUTSIDE RECORDS SUMMARY | 2024-10-08 09:28 | XMS_ITS | Encounter Summary ---
Author Organization [facility] ([place], [place], [place], [place]) Address [address] [place] [address] Care Team Providers Care Duct Maker Name Role Phone Reina Olmedo APRN Primary Care Provider [phone] Encounter Details Date Type Department Care Team (Late st Contact Info) Description 12/02/2019 Transcribed Document [facility] [place] [facility] [address] [place] [address] ProviderVeronica MD [address] [place] [address] Social History Tobacco Use Types Packs/Day Years Used Date Smoking Tobacco: Never Assessed Comments Unknown Sex and Gender Information Value Date Recorded Sex Assigned at Not on file Legal Sex Female 4:58 PM CDT Gender Identity Not on file Sexual Orientation Not on file documented as of this encounter Miscellaneous Notes * Cerner Conversion Note - Historical ProviderMD - 12/02/2019 3:38 PM CDT [facility] PreOp Summary Primary Physician: YOU HAWTHORNE MD-OBG Finalized Date/Time: 12/02/19 16:01:03 Pt. Name: YANE REBOLLEDO/Sex: 1970 Female Med Rec #: [id number] Physician: YOU HAWTHORNE MD-OBG Financial #: [id number] Pt. Type: O Room/Bed: Admit/Disch: 12/02/19 11:24:00 - Institution: [facility] PreOp Case Times Entry 1 In Preop 12/02/19 11:40:00 Ready for Holding n/a Room Patient Ready for 12/02/19 13:11:00 Surgery Patient Out of Preop 12/02/19 15:14:00 Patient Out of n/a Holding Room Last Modified By: CRISTINA JUAREZ RN 12/02/19 16:00:45 [facility] PreOp Case Times Audit 12/02/19 16:00:45 Automotive Design Drafter: [email or web address] Modifier: [id number] <+> 1 Patient Out of Preop Finalized By: CRISTINA JUAREZ, RN Document Signatures Signed By: CRISTINA JUAREZ RN 12/02/19 16:01 documented in this encounter Plan of Treatment Not on file documented as of this encounter Visit Diagnoses Not on filedocumented in this encounter Care Teams Duct Maker Relationship Specialty Start Date End Date Reina Olmedo, TRAVEL SPECIALIST [address] [place] [address] PCP - General Nurse Practitioner 11/14/22 10/01/23 documented as of this encounter
--- OUTSIDE RECORDS SUMMARY | 2024-10-08 09:28 | XMS_ITS | Clinical Summary ---
Author Organization [employer] ([place], [place], [place], [place]) Address [address] [place] [address] Care Team Providers Care Content Development Specialist Name Role Phone Unavailable Primary Care Provider Unavailabl e Allergies Active Allergy Reactions Criticality Noted Date Comments Egg Hives,Itching,Rash High 01/06/2023 [place] Hives,Itching,Rash High 01/06/2023 Hazelnut Hives,Itching,Rash High 01/06/2023 House Dust Mite 01/06/2023 Milk Hives,Itching,Rash High 01/06/2023 Mold Hives,Itching,Rash High 01/06/2023 Peanut Hives,Itching,Rash High 01/06/2023 Tomato Hives,Itching,Rash High 01/06/2023 Tree Pollen Hives,Itching,Rash High 01/06/2023 [place] Hives,Itching,Rash High 01/06/2023 Medications aspirin 81 MG EC tablet Take 1 tablet (81 mg total) by mouth daily. Active betamethasone dipropionate (DIPROSONE) 0.05 % lotion SMARTSIG:Topical 11/05/19 Active triamcinolone-dime th-silicone 0.1-2 % Kit 08/14/19 Active cetirizine (ZyrTEC) 10 MG tablet Take 1 tablet (10 mg total) by mouth 2 (two) times daily. 10/04/19 Active ibuprofen (ADVIL,MOTRIN) 200 MG tablet 11/06/19 Active montelukast (SINGULAIR) 10 mg tablet Take 1 tablet (10 mg total) by mouth daily. 11/13/19 23 Active hydrOXYzine (ATARAX) 25 MG tablet Take 1 tablet (25 mg total) by mouth nightly. 90 tablet 12/03/19 23 Active cholecalciferol (VITAMIN D3) 125 mcg (5,000 unit) capsule Take 1 capsule (5,000 Units total) by mouth daily. 30 capsule 1 12/03/19 23 Active Elidel 1 % cream 2 (two) times daily as needed. 12/18/19 23 Active FeroSuL 325 mg (65 mg iron) tablet Take 1 tablet (325 mg total) by mouth 2 (two) times daily with breakfast and dinner. 60 tablet 2 01/09/20 23 Active Nystop 100,000 unit/gram powder Apply topically 2 (two) times daily as needed. 30 g 2 05/06/19 24 Active blood sugar diagnostic (FreeStyle Lite Strips) Strp 1 strip by Miscellaneous route 2 (two) times daily as needed. 100 strip 4 05/06/19 24 Active docusate sodium (COLACE) 100 MG capsule Take 1 capsule (100 mg total) by mouth every night as needed. 10 capsule 05/06/19 24 Active fluticasone propionate (FLONASE) 50 mcg/actuation nasal spray 1 spray by Nasal route daily. 9.9 mL 05/06/19 24 Active olopatadine (PATANOL) 0.1 % ophthalmic solution Place 1 drop into both eyes 2 (two) times daily. 5 mL 05/06/19 24 Active azelastine (ASTELIN) 137 mcg (0.1 %) nasal spray 1 spray by Nasal route 2 (two) times daily as needed for Rhinitis. 30 mL 2 05/06/19 24 Active nystatin (MYCOSTATIN) 100,000 unit/gram cream Apply topically 2 (two) times daily. 30 g 05/06/19 24 Active triamcinolone (KENALOG) 0.1 % topical cream Apply topically 2 (two) times daily. 1 g 05/06/19 24 Active freestyle 28 gauge lancets USE DIRECTED TO CHECK BLOOD SUGAR. 200 each 06/04/19 24 Active tirzepatide (Mounjaro) 7.5 mg/0.5 mL PnIj Inject 7.5 mg subcutaneously every 7 days. 2 mL 5 08/04/19 24 Active citalopram (CeleXA) 40 MG tablet Take 1 tablet (40 mg total) by mouth daily. 90 tablet 08/04/19 24 Active DULoxetine (CYMBALTA) 60 MG capsuleIndications :Anxiety and depression Take 1 capsule (60 mg total) by mouth 2 (two) times daily. 180 capsule 08/04/19 Active glimepiride (AMARYL) 1 MG tablet Take 1 tablet (1 mg total) by mouth daily with breakfast. 90 tablet 08/04/19 Active losartan-hydroCHLO ROthiazide (HYZAAR) 50-12.5 mg per tablet Take 1 tablet by mouth 2 (two) times daily. 180 tablet 08/04/19 24 Active metoprolol tartrate (LOPRESSOR) 25 MG tablet Take 1 tablet (25 mg total) by mouth 2 (two) times daily. 180 tablet 3 08/04/19 Active simvastatin (ZOCOR) 40 MG tabletIndications: Hyperlipidemia, unspecified hyperlipidemia type Take 1 tablet (40 mg total) by mouth nightly. 90 tablet 08/04/19 24 Active traZODone (DESYREL) 50 MG tablet Take 1 tablet (50 mg total) by mouth nightly. 90 tablet 2 08/04/19 24 Active levothyroxine (SYNTHROID, LEVOTHROID) 137 MCG tablet Take 1 tablet (137 mcg total) by mouth daily. 30 tablet 5 08/05/19 24 Active hydrOXYzine (ATARAX) 50 MG tablet TAKE 2 TABLETS BY MOUTH ONCE DAILY AT BEDTIME 60 tablet 08/11/19 24 Active fluconazole (DIFLUCAN) 50 MG tablet Take 1 tablet (50 mg total) by mouth daily. 08/24/19 Active ketoconazole (NIZORAL) 2 % cream Apply topically daily. 08/24/19 24 Active omeprazole (PriLOSEC) 40 MG capsuleIndications :Gastroesophageal reflux disease, unspecified whether esophagitis present Take 1 capsule by mouth once daily 90 capsule 09/04/19 Active Active Problems Problem Noted Date Diagnosed Date Left knee pain 08/04/2023 08/04/2023 Right knee pain 08/04/2023 08/04/2023 Arthritis 01/21/2022 Anxiety and depression 01/21/2022 History of obstructive sleep apnea 01/21/2022 Hyperlipidemia 01/21/2022 Hypothyroidism 03/22/2021 Hypertension 03/22/2021 Decreased glomerular filtration rate (GFR) 11/15 Edema, unspecified 09/04/2020 Morbid obesity 08/01/2020 Type 2 diabetes mellitus 07/31/2020 Obstructive sleep apnea syndrome 07/24/2020 Vitamin D deficiency 05/17/2020 Excessive sweating 12/17/2019 Menopausal and female climacteric states 020 Immunizations Name Administration Dates Next Due (Shingrix, Recombinant, Adju vanted) Zoster Vaccine IM 12/27/2022 COVID-19 mRNA (PF)(LNP-S BIV ALENT) (Perez Cap) 12YR+ (PFIZER)([id number] 12/27/2022 Covid-19 Vaccine MRNA (PF) 1 2yr+ (Pfizer/SclobyNT[employer] Systems)([id number]) 01/26/2021,07/25/2020,06/29/2020 Covid-19 Vaccine MRNA(PF,Premixed)12YR+ (Pfizer/Scloby[employer] Systems)([id number]) 08/09/2021 Hepatitis A Adult 08/07/2018,01/06/2018 Influenza Four-QIV PF 3+YR IM 02/05/2019, 018,03/13/2016 Influenza Four-qiv Pf 12/19/2022, 022,01/26/2021,02/05,01/06/2018 Influenza TIV (IM) 12/19/2022,12/24/2021 Pneumococcal Conjugate Vacci ne (20-Valent) IM 08/09/2021 Pneumococcal Polysaccharide (Pneumovax) 01/21/2014 Tdap 04/21/2023 Family History Medical History Relation Name Comments Diabetes Maternal Grandmother Heart disease Maternal Grandmother Hypertension Maternal Grandmother Heart disease Mother Relation Name Status Comments Maternal Grandmother Mother Social History Tobacco Use Types Packs/Day Years Used Date Smoking Tobacco: Former Smokeless Tobacco: Never Tobacco Cessation:Counseling Given: Not Answered Alcohol Use Standard Drinks/Week Comments Never 0 [...] Date Joshua rded Speak language other than Iraqi at home Not on file 04/09/2023 Want [...] on file Sexual Orientation Not on file Last Filed Vital Signs Vital Sign Reading Time Taken Comments Blood Pressure 116/78 09/01/2023 2:53 PM EDT Pulse 64 09/01/2023 2:53 PM EDT Temperature 36.5 C (97.7 F) 09/01/2023 2:53 PM EDT Respiratory Rate 18 04/15/2023 2:40 PM EST Oxygen Saturation 98% 09/01/2023 2:53 PM EDT Inhaled Oxygen Concentration - - Weight 134.9 kg (297 lb 6.4 oz) 09/01/2023 2:53 PM EDT Height 152.4 cm (5') 09/01/2023 2:53 PM EDT Body Mass Index 58.08 09/01/2023 2:53 PM EDT Plan of Treatment Health Maintenance Due Date Last Done Comments CT Colonography 1972 Diabetic Kidney Health Evalu ation (KED) 1972 FOBT/FIT 1972 Fit-DNA (Cologuard) 1972 Sigmoidoscopy 1972 Diabetic Eye Exam 1982 HIV Screening 12/17/1987 Hepatitis C Screening 1990 Pap Smear 1993 Breast Cancer Screening 11/11/2020 11/11/2018, 11/11 Shingles Vaccine (Zoster) (2 of 2) 02/21/20232022 COVID-19 VACCINE (2023-2 5 season) 2023 12/27/2022, 12/24/2021, 08/09/2021, Additional history exists Hemoglobin A1C 02/04/2024 08/04/2023, 03/25, 01/06/2023, Additional history exists Tobacco Cessation Counseling and Screening (12+) 09/09/2024 09/10/2023 Influenza Vaccine (#1) 2024 , 12/24/2021, 02/05/2019, Additional history exists Colonoscopy 04/15/2026 04/15/2023 Colorectal Cancer Screening 04/15/2026 Lipid Panel 08/03/2026 08/04/2023, 03/25, 01/06/2023, Additional history exists DTAP/TDAP/TD VACCINES (2 - T d or Tdap) 04/21/2033 04/21/2023 Pneumococcal 50+ years Completed 08/09/2021, 2013 Procedures Procedure Name Priority Date/Time Associated Diagnosis Comments HEMOGLOBIN A1C Routine 08/04/2023 2:21 PM EDT Hypothyroidism, unspecified type Type 2 diabetes mellitus without complication, without long-term current use of insulin (HCC) Mixed hyperlipidemia Morbid obesity (HCC) Hypertension, unspecified type LIPID PANEL Routine 08/04/2023 2:21 PM EDT Hypothyroidism, unspecified type Type 2 diabetes mellitus without complication, without long-term current use of insulin (HCC) Mixed hyperlipidemia Morbid obesity (HCC) Hypertension, unspecified type HM MAMMOGRAPHY Routine 11/11/2018 from Last 3 Months or Most Recently Relevant to Health Maintenance Results * (ABNORMAL) Hemoglobin A1c (08/04/2023 2:21 PM EDT) Hemoglobin A1c 6.9(H) 4.8 - 5.6 % [facility] Comment: Prediabetes: 5.7 - 6.4 Diabetes: >6.4 Glycemic control for adults with diabetes: <7.0 Blood 08/04/2023 2:21 PM EDT 08/04/2023 Narrative [facility] - 08/05/2023 10:08 AM EDT Performed at: [facility] [address] [id number] Statistician Theoretical: Clive Martinez PhD, Phone: [phone] Reina Olmedo ART INSTRUCTOR LAB BLOOD ORDERABLES Becky l Result Performing Organization Address [facility] Co de Phone Number [facility] * (ABNORMAL) Lipid panel (08/04/2023 2:21 PM EDT) [facility] Cholesterol, Total 153 100 - 199 mg/dL [facility] Triglycerides 236(H) 0 - 149 mg/dL [facility] HDL Cholesterol 46 >39 mg/dL [facility] VLDL Cholesterol Lopez 38 5 - 40 mg/dL [facility] LDL Calculated 69 0 - 99 mg/dL [facility] Blood 08/04/2023 2:21 PM EDT 08/04/2023 Narrative [facility] - 08/05/2023 10:08 AM EDT Performed at: 01 - [facility] [address] [id number] Statistician Theoretical: Clive Martinez PhD, Phone: [phone] Reina Olmedo APRN LAB BLOOD ORDERABLES Becky l Result Performing Organization Address [facility] de Phone Number [facility] * HM MAMMOGRAPHY (11/11/2018) Anatomical Region Laterality Modality Other Historical Provider HEALTH MAINTENANCE Final Result from Last 3 Months or Most Recently Relevant to Health Maintenance Insurance [place] [id number]
--- OUTSIDE RECORDS SUMMARY | 2024-10-08 09:28 | XMS_ITS | Encounter Summary ---
Author Organization [employer] ([place], [place], [place], [place]) Address [address] [place] [address] Care Team Providers Care Rough Patcher Name Role Phone Reina Olmedo DASHAWN Primary Care Provider [phone] Encounter Details Date Type Department Care Team (Late st Contact Info) Description 07/27/2020 Transcribed Document [facility] Family Medicine [address] [place] [address] ProviderVeronica MD [address] [place] [address] Social History Tobacco Use Types Packs/Day Years Used Date Smoking Tobacco: Never Assessed Comments Unknown Sex and Gender Information Value Date Recorded Sex Assigned at Not on file Legal Sex Female 4:58 PM CDT Gender Identity Not on file Sexual Orientation Not on file documented as of this encounter Miscellaneous Notes * [employer] Conversion Note - Historical ProviderMD - 07/27/2020 11:47 AM CDT Event Note Entered On: 07/27/2020 11:47 EDT Performed On: 07/27/2020 11:47 EDT by LETY WASSERMAN RN Event Note Event Date/Time : 07/27/2020 11:47 EDT Description of Event : Dr. Hung here to see. LETY WASSERMAN, RN - 07/27/2020 11:47 EDT Electronically signed by Deyvi [facility] Conversion Shell Shop Supervisor Cerner at 07/09/2022 12:38 PM CDT documented in this encounter Plan of Treatment Not on file documented as of this encounter Visit Diagnoses Not on filedocumented in this encounter Care Teams Rough Patcher Relationship Specialty Start Date End Date Reina, WORKERS COMPENSATION CLAIMS SUPERVISOR [address] [place] [address] PCP - General Nurse Practitioner 11/14/22 10/01/23 documented as of this encounter
--- OUTSIDE RECORDS SUMMARY | 2024-10-08 09:28 | XMS_ITS | Encounter Summary ---
Author Organization [employer] ([place], [place], [place], [place]) Address [address] [place] [address] Care Team Providers Care Tdp Displays Analyst Name Role Phone Reina Olmedo APRN Primary Care Provider [phone] Encounter Details Date Type Department Care Team (Late st Contact Info) Description 08/03/2020 Transcribed Document [facility] [place] Medicine [address] [place] [address] ProviderVeronica MD [address] [place] [address] Social History Tobacco Use Types Packs/Day Years Used Date Smoking Tobacco: Never Assessed Comments Unknown Sex and Gender Information Value Date Recorded Sex Assigned at Not on file Legal Sex Female 4:58 PM CDT Gender Identity Not on file Sexual Orientation Not on file documented as of this encounter Miscellaneous Notes * Cerner Conversion Note - Historical ProviderMD - 08/03/2020 10:03 AM CDT [facility] OR PreOp Summary Primary Physician: YOU HAWTHORNE MD-OBG Finalized Date/Time: 08/03/20 12:23:55 Pt. Name: YANE REBOLLEDO/Sex: 1970 Female Med Rec #: [id number] Physician: YOU HAWTHORNE MD-OBG Financial #: [id number] Pt. Type: O Room/Bed: [facility] Admit/Disch: 08/03/20 03:59:00 - Institution: [facility] PreOp Case Times Entry 1 In Preop 08/03/20 07:55:00 Ready for Holding 08/03/20 08:51:00 Room Patient Ready for 08/03/20 08:51:00 Surgery Patient Out of Preop 08/03/20 09:38:00 Patient Out of n/a Holding Room Last Modified By: CLINTON CASTAÑEDA RN 08/03/20 12:23:54 [facility] PreOp Case Times Audit 08/03/20 12:23:54 Help Aid: IESHA Modifier: YULI <+> 1 Patient Out of Preop Finalized By: CLINTON CASTAÑEDA, RN Document Signatures Signed By: CLINTON CASTAÑEDA RN 08/03/20 12:23 documented in this encounter Plan of Treatment Not on file documented as of this encounter Visit Diagnoses Not on filedocumented in this encounter Care Teams Tdp Displays Analyst Relationship Specialty Start Date End Date Reina Olmedo, LEADITE HEATER [address] [place] [address] PCP - General Nurse Practitioner 11/14/22 10/01/23 documented as of this encounter
--- OUTSIDE RECORDS SUMMARY | 2024-10-08 09:28 | XMS_ITS | Encounter Summary ---
Author Organization [employer] ([place], [place], [place], [place]) Address [address] [place] [address] Care Team Providers Care Property Coordinator Name Role Phone NellieReina hancock Nilsa TAMEZ Primary Care Provider [phone] Encounter Details Date Type Department Care Team (Late st Contact Info) Description 07/27/2020 Transcribed Document [facility] Family Medicine [facility] [place] [address] ProviderVeronica MD [address] [place] [address] Social History Tobacco Use Types Packs/Day Years Used Date Smoking Tobacco: Never Assessed Comments Unknown Sex and Gender Information Value Date Recorded Sex Assigned at Not on file Legal Sex Female 4:58 PM CDT Gender Identity Not on file Sexual Orientation Not on file documented as of this encounter Miscellaneous Notes * Cerner Conversion Note - Historical ProviderMD - 07/27/2020 11:25 AM CDT DATE OF SERVICE: 07/27/2020 LEFT HEART CATHETERIZATION REPORT INDICATION: Dyspnea equivalent angina, anterior apical ischemia by exercise Myoview perfusion study and low exercise capacity. ADDITIONAL REFERRING PHYSICIAN: 1. Dr. Holly Vaughn. 2. Dr. Rodrigues. PROCEDURE: Standard left heart catheterization technique. A 5/6-Cambodian sheath was placed in the right radial artery. 5 mg of verapamil, 50 units/kg heparin were administered via the radial artery sheath. Adiel catheter was used for selective angiography of left and right coronary arteries obtaining pressures in the left ventricle. Left ventriculogram was not performed. Following the diagnostic catheterization, the radial artery sheath was removed and the access site successfully compressed using a TR band. The patient received moderate conscious sedation for the procedure. Intravenous Versed and fentanyl were administered and the patient was monitored for at least 30 minutes. She remained hemodynamically stable without respiratory distress. HEMODYNAMICS: Left ventricle 130 over greater than 30 mmHg, aorta 130/90 mmHg. DIAGNOSES: 1. Mild coronary artery atherosclerosis. 2. Significantly elevated left ventricular filling pressure without gradient across the aortic valve. CORONARY ANATOMY: 1. Left main trunk: Angiographically normal. 2. LAD: Large caliber vessel, which gives rise to moderate caliber first diagonal branch, additional tiny diagonal branches before extending beyond the apex. Luminal irregularities present in the LAD and diagonal branches. 3. Circumflex artery: Moderate caliber vessel, which gives rise to a large caliber bifurcating high lateral branch and a small caliber posterolateral branch. Luminal irregularities present in the circumflex artery. 4. Right coronary artery: Dominant vessel. Large caliber vessel, which gives rise to a moderate caliber posterior descending artery and moderate caliber posterolateral branch. Luminal irregularities present in the right coronary artery. 5. Left ventricle: Significantly elevated left ventricular filling pressure without gradient across the aortic valve. IMPRESSION: Angiographically, the patient has mild coronary artery atherosclerosis. There is no indication for revascularization. There is significant elevated left ventricular filling pressure without gradient across the aortic valve. RECOMMENDATION: Aggressive risk factor modification and medical management, especially weight loss is recommended. The patient is at low cardiac risk for gynecological surgery. /[id number] Jun Hung MD SSL/AQ / SSL / MODL /[id number] CC: MD Dr. Lilia Ricardo documented in this encounter Plan of Treatment Not on file documented as of this encounter Visit Diagnoses Not on filedocumented in this encounter Care Teams Property Coordinator Relationship Specialty Start Date End Date FebReina hancock, UNEMPLOYMENT INSPECTOR [address] [place] [address] PCP - General Nurse Practitioner 11/14/22 10/01/23 documented as of this encounter
--- OUTSIDE RECORDS SUMMARY | 2024-10-08 09:28 | XMS_ITS | Encounter Summary ---
Author Organization [employer] ([place], [place], [place], [place]) Address [address] [place] [address] Care Team Providers Care Souvenir Assembler Name Role Phone Reina Olmedo APRN Primary Care Provider [phone] Reason for Visit * Reason Onset Date Comments Medication Refill 02/04/2023 Encounter Details Date Type Department Care Team (Late st Contact Info) Description 02/04/2023 Refill [facility] Primary Care - [address] [address] Reina Olmedo APRN [address] [place] [address] Social History Tobacco Use Types Packs/Day [...] as of this encounter Miscellaneous Notes * Telephone Encounter - Mya Morgan MA - 02/04/2023 4:28 PM EST Refill FITTER documented in this encounter Plan of Treatment Not on file documented as of this encounter Visit Diagnoses Not on filedocumented in this encounter Care Teams Souvenir Assembler Relationship Specialty Start Date End Date FebReina hancock, HAND I THERMAL CUTTER [address] [place] [address] PCP - General Nurse Practitioner 11/14/22 10/01/23 documented as of this encounter
--- OUTSIDE RECORDS SUMMARY | 2024-10-08 09:28 | XMS_ITS | Encounter Summary ---
Author Organization [employer] ([place], [place], [place], [place]) Address [address] [place] [address] Care Team Providers Care Scraper Operator Name Role Phone Reina Olmedo DASHAWN Primary Care Provider [phone] Encounter Details Date Type Department Care Team (Late st Contact Info) Description 07/27/2020 Transcribed Document [facility] [place] Family Medicine [address] [place] [address] ProviderVeronica MD [address] [place] [address] Social History Tobacco Use Types Packs/Day Years Used Date Smoking Tobacco: Never Assessed Comments Unknown Sex and Gender Information Value Date Recorded Sex Assigned at Not on file Legal Sex Female 4:58 PM CDT Gender Identity Not on file Sexual Orientation Not on file documented as of this encounter Miscellaneous Notes * Cerner Conversion Note - Veronica ProviderMD - 07/27/2020 2:48 PM CDT [place] [address] YANE REBOLLEDO :1970 Visit Time:07/27/2020 Your Visit Summary Your Care Team Admitting Physician - FABIENNE LU MD-CAR Attending Physician - FABIENNE LU MD-CAR Primary Care Physician - WILL BRIDGES, -[facility] Referring Physician - FABIENNE LU MD-CAR Your [...] weeks Comments Follow-up as instructed Where: [address] [facility] [address] [place] [address]- Medications What How Much When Instructions Next [...] to thoroughly wash your hands, use hand business assistant. While handwashing is best, hand business assistant helps to reduce the spread of germs when you are out and about. Have hand business assistant in several locations so you can always [...] keep people from also getting sick. Don???t [place] It! Sneezing this time of year is [...] different for every person. A diet and epic willow specialist (registered dietitian) can help you make a [...] of carbohydrates: ? hamburger bun or ?? Indonesian muffin. ? oz (15 mL) syrup. ? [...] foods that contain carbohydrates: ??? Rice. ??? [place]. ??? Milk. ??? Strawberries. 2. Calculate how [...] manage your diabetes. ??? A diet and epic willow specialist (registered dietitian) can help you make a meal plan and calculate how many carbohydrates you should have at each meal and snack. This information is not intended to replace advice given to you by your health care provider. Make sure you discuss any questions you have with your health care provider. Document Revised: 10/02/2017 Document Reviewed: 08/21/2016 [employer] Patient Education ?? 2020 [employer] Diabetes Mellitus and Nutrition, Adult When [...] that you work with a diet and epic willow specialist (dietitian) to make a meal plan that [...] provider. ??? Work with a counselor or adult educator to identify strategies to manage stress and any emotional and social challenges. Questions to ask a health care provider ??? Do I need to meet with a adult educator? Do I need to meet with a dietitian? What number can I call if I have questions? When are the best times to check my blood glucose? Where to find more information: ??? [place] Diabetes Association: diabetes.org ??? Academy of Nutrition and Dietetics: www.eatright.org ??? National [place] of Diabetes and Digestive and Kidney Diseases (NIH): www.niddk.nih.gov Summary ??? A healthy meal plan will help you control your blood glucose and maintain a healthy lifestyle. ??? Working with a diet and epic willow specialist (dietitian) can help you make a meal [...] provider. Document Revised: 02/20/2018 Document Reviewed: 04/14/2017 [employer] Patient Education ?? 2020 [employer] Coronary Angiogram A coronary angiogram is [...] including vitamins, herbs, eye drops, creams, and ddaq-zkd-lyhbefq medicines. ??? Any problems you or family [...] do not normally take it. ??? Taking jenx-otu-haumzsb medicines, vitamins, herbs, and supplements. General instructions [...] provider. Document Revised: 09/30/2019 Document Reviewed: 09/30/2019 [employer] Patient Education ?? 2020 [employer] Moderate Conscious Sedation, Adult, Care After [...] you are awake and alert. ??? Take nwxf-htq-joapqmr and prescription medicines only as told by [...] provider. Document Revised: 02/20/2018 Document Reviewed: 06/29/2016 [employer] Patient Education ?? 2020 [employer]. Radial Site Care This sheet gives you [...] these instructions at home: Medicines ??? Take wnau-ivx-wujztry and prescription medicines only as told by your health care provider. Insertion site care ??? Follow instructions from your health care provider about how to take care of your insertion site. Make sure you: ? Wash your hands with soap and water before you change your bandage (dressing). If soap and water are not available, use hand business assistant. ? Change your dressing as told by [...] provider. Document Revised: 04/15/2018 Document Reviewed: 04/15/2018 [employer] Patient Education ?? 2020 [employer] Transradial Angiogram A transradial angiogram is [...] including vitamins, herbs, eye drops, creams, and vbvk-ylp-zgralkc medicines. ??? Any problems you or family [...] tells you to take them. ??? Taking zvix-qte-sbxswkj medicines, vitamins, herbs, and supplements. Exams and [...] provider. Document Revised: 02/01/2019 Document Reviewed: 02/01/2019 [employer] Patient Education ?? 2020 [employer] Emergency Awareness and Preventative Care STROKE [...] Assistance with quitting is available by contacting 8-499-GEPINOW. This is a free resource providing counseling, [...] was given the opportunity to ask questions. Patient/Goldbeater Name: Patient/Goldbeater Signature: Relationship to Patient: Clinician/Hospital Goldbeater Signature: Date: documented in this encounter Plan of Treatment Not on file documented as of this encounter Visit Diagnoses Not on filedocumented in this encounter Care Teams Scraper Operator Relationship Specialty Start Date End Date Reina, LINUX SECURITY ADMINISTRATOR [address] [place] [address] PCP - General Nurse Practitioner 11/14/22 10/01/23 documented as of this encounter
--- OUTSIDE RECORDS SUMMARY | 2024-10-08 09:28 | XMS_ITS | Encounter Summary ---
Author Organization [employer] ([place], [place], [place], [place]) Address [address] [place] [address] Care Team Providers Care Production Wood Craftsman Name Role Phone Nelliekarissa Reina Ash APRN Primary Care Provider [phone] Encounter Details Date Type Department Care Team (Late st Contact Info) Description 08/03/2020 Transcribed Document [facility] [place] Family Medicine [address] [place] [address] ProviderVeronica MD [address] [place] [address] Social History Tobacco Use Types Packs/Day Years Used Date Smoking Tobacco: Never Assessed Comments Unknown Sex and Gender Information Value Date Recorded Sex Assigned at Not on file Legal Sex Female 4:58 PM CDT Gender Identity Not on file Sexual Orientation Not on file documented as of this encounter Miscellaneous Notes * Cerner Conversion Note - Historical ProviderMD - 08/03/2020 8:32 AM CDT PAT Adult Entered On: 08/03/2020 8:36 EDT Performed On: 08/03/2020 8:32 EDT by Kathe De Souza RN Vital Measurements Temperature Source : Oral Temperature Mode : Fahrenheit Temperature, Fahrenheit : 99.4 Deg F Clinical Temperature, C : 37.4 Deg C Peripheral Pulse Rate : 76 bpm Respiratory Rate : 16 Breaths/Min Systolic Blood Pressure : 140 mmHg Diastolic Blood Pressure : 78 mmHg Oxygen Saturation : 97 % Oxygen Therapy Mode : Room air Kathe De Souza RN - 08/03/2020 8:32 EDT Pain Assessment Pain Assessment : Initial assessment Pain Scale Goal : 4 Pain Scale Used : 0-10 Scale Kathe De Souza RN - 08/03/2020 8:32 EDT Height and Weight, Clinical Dosing Height Source : Stated Height Entry Format : [place] Height, Feet : 5 ft(Converted to: 152 cm, 60 Inch) Height, Inches : 0 Inch(Converted to: 0 ft 0 Inch, 0.00 cm) Clinical Height : 152.4 cm Weight Source : Standing scale Weight Entry Format : [place] Clinical Dosing Weight : 126.36 kg Weight, Pounds : 278 lb Body Surface Area (BSA) : 2.15 m2 Body Mass Index : 54.4 kg/m2 (>HHI) [place] Body Weight : 45 kg Kathe De Souza RN - 08/03/2020 8:32 EDT Health Histories Smoking Status : Former smoker, quit more than 30 days ago Smokeless Tobacco Status : Never Kathe De Souza RN - 08/03/2020 8:32 EDT Social History (As Of: 08/03/2020 08:36:31 EDT) Tobacco: Use in Last 12 Months: No. Smoking Status Former smoker. Last Used: quit 1999. (Last Updated: 06/30/2014 09:29:05 EDT by Petty Kaiser RN) Former smoker, quit more than 30 days ago Smoking Status. Never Smokeless Tobacco Status. (Last Updated: 07/26/2020 13:12:58 EDT by RENZO MORRELL RN) Alcohol: Alcohol Use History No. (Last Updated: 12/02/2019 13:00:41 EDT by CLINTON CASTAÑEDA RN) Alcohol Use History No. (Last Updated: 07/26/2020 13:12:58 EDT by RENZO MORRELL RN) Substance Abuse: Drug Use Hx: No. Use in Last 12 Months: No. (Last Updated: 12/02/2019 13:00:51 EDT by CLINTON CASTAÑEDA RN) Drug Use Hx: No. (Last Updated: 07/26/2020 13:12:58 EDT by RENZO MORRELL RN) Infectious Disease History Has the patient ever been tested for COVID-19? : Yes, Patient stated results Negative Where was the COVID-19 Testing completed? : [facility] Where are the test results? : In EMR Results Date of COVID-19 test known? : Yes Date of COVID-19 Test : 08/01/2020 EDT Does patient have symptoms of COVID-19? : No COVID19 Screening : No Experiencing Infectious Disease Symptoms : No symptoms Physical contact outside [place] in the last 30 days : No Infectious Disease History : None Tuberculosis Symptoms : None Kathe De Souza RN - 08/03/2020 8:32 EDT COVID19 PreProcedure Screening Is this an Emergent or Add on Procedure? : No Date PreProcedure COVID-19 test known? : Yes Date of PreProcedure COVID-19 : 08/01/2020 EDT Has patient been isolated since the test : Yes Exposed to COVID19 symptoms since test? : No Kathe De Suoza RN - 08/03/2020 8:32 EDT Anesthesia/Transfusion History Family History of Anesthesia Reaction : Prior transfusion without reaction Transfusion History : Prior anesthesia without reaction Family History of Anesthesia Reaction : None Kathe De Souza RN - 08/03/2020 8:32 EDT Functional Assessment Functional ADL Evaluation Index EBN Bathing : Independent (2) Dressing : Independent (2) Toileting : Independent (2) Transferring Bed or Chair : Independent (2) Continence : Independent (2) Feeding : Independent (2) Kathe De Souza RN - 08/03/2020 8:32 EDT ADL Index Score : 12 Kathe De Souza RN - 08/03/2020 8:32 EDT Advance Directive Patient has Advance Directive *Q : No, patient refuses Advance Directive information Kathe De Souza RN - 08/03/2020 8:32 EDT Spiritual/Cultural Needs Any Spiritual/Cultural Needs or Requests : Yes Kathe De Souza RN - 08/03/2020 8:32 EDT [place] Suicide Severity Rating Scale (C-SSRS) CSSRS Past Month Wish to be : No CSSRS Past Month Suicidal Thoughts : No CSSRS Lifetime Suicide Behavior : No Suicide Severity Rating Score : 0 Suicide Severity Rating : No Additional Care Required at this time Kathe De Souza RN - 08/03/2020 8:32 EDT Psychosocial History Do You Have a History of the Following? : Patient denies history Currently in Unsafe Situation : No Kathe De Souza RN - 08/03/2020 8:32 EDT Teaching/Learning Assessment Barriers To Learning : None evident Individuals Taught : Patient Readiness to Learn : Cooperative Readiness to Learn : Explanation Learning Style Preferences Patient : Verbal explanation Kathe De Souza RN - 08/03/2020 8:32 EDT Education Topics, Periop Preadmission Perioperative Education Grid IV's : Verbalizes understanding Kathe De Souza RN - 08/03/2020 8:32 EDT General Info Arrived From : Home Mode of Arrival on Unit : Ambulatory Patient Arrival Date/Time : 08/03/2020 7:55 EDT Support Person/Patient Marker Shipments : Yes Want Family/Rep/Phys Notified of Admit : No Emergency Contact #1 : Meryl Cervantes Emergency Contact #1 Emergency Contact #1 Relationship : mother Emergency Contact #2 : - Emergency Contact #2 Phone Number : - Emergency Contact #2 Relationship : - Information Obtained From : Patient Primary Language : Swedish Preferred Communication Mode : Verbal Communication Barrier : None Distribution Engineer Needed : No Kathe De Souza RN - 08/03/2020 8:32 EDT Jey Scale Jey Sensory Perception : Slightly limited Jey Moisture : Occasionally moist Jey Activity : Walks frequently Jey Mobility : Slightly limited Jey Nutrition : Adequate Jey Friction and Shear : Potential problem Jey Score : 18 Kathe De Souza RN - 08/03/2020 8:32 EDT Sleep Apnea Risk Assmt BiPAP/CPAP Ordered for Home Use : Yes Hx of Obstructive Sleep Apnea Diagnosis : Yes BiPAP/CPAP Used at Home : No Reason BiPAP/CPAP Not Used at Home : insurance would not cover Age over 50 Years Old : No Gender Male : No Kathe De Souza RN - 08/03/2020 8:32 EDT Pain Scale Intensity : 0 Kathe De Souza RN - 08/03/2020 8:32 EDT Image 4 - Images currently included in the form version of this document have not been included in the text rendition version of the form. documented in this encounter Plan of Treatment Not on file documented as of this encounter Visit Diagnoses Not on filedocumented in this encounter Care Teams Production Wood Craftsman Relationship Specialty Start Date End Date Reina Olmedo, PHOTOVOLTAIC PANEL INSTALLER [address] [place] [address] PCP - General Nurse Practitioner 11/14/22 10/01/23 documented as of this encounter
--- OUTSIDE RECORDS SUMMARY | 2024-10-08 09:28 | XMS_ITS | Encounter Summary ---
Author Organization [employer] ([place], [place], [place], [place]) Address [address] [place] [address] Care Team Providers Care Boat Driver Name Role Phone Reina Olmedo APRN Primary Care Provider [phone] Encounter Details Date Type Department Care Team (Late st Contact Info) Description 12/03/2019 Transcribed Document [facility] IT PROGRAM AUDITOR - [employer] [address] [facility] [address] [place] [address] Radha Rodrigues MD [address] [facility] [facility], [address] [place] [address] Social History Tobacco Use Types Packs/Day Years Used Date Smoking Tobacco: Never Assessed Comments Unknown Sex and Gender Information Value Date Recorded Sex Assigned at Not on file Legal Sex Female 4:58 PM CDT Gender Identity Not on file Sexual Orientation Not on file documented as of this encounter Miscellaneous Notes * Cerner Conversion Note - Radha Rodrigues MD - 12/03/2019 6:16 PM EDT DATE OF PROCEDURE: 12/02/2019 SURGEON: Radha Rodrigues MD PREOPERATIVE DIAGNOSES: 1. Abnormal uterine bleeding with prolonged episodes of spotting. 2. Morbid obesity. 3. History of anovulation with polycystic ovarian syndrome. POSTOPERATIVE DIAGNOSES: 1. Abnormal uterine bleeding with prolonged episodes of spotting. 2. Morbid obesity. 3. History of anovulation with polycystic ovarian syndrome. 4. Endometrial polyps. PROCEDURE: Diagnostic hysteroscopy with dilation and curettage and polypectomy. ANESTHESIA: General with laryngeal mask airway. COMPLICATIONS: None. PATHOLOGIC SPECIMEN: Endometrial curettings with polyps together. INDICATION FOR SURGERY: The patient is a 48-year-old morbidly obese woman with a history of PCOS. She has had abnormal uterine bleeding that was being treated with hormonal management. The patient has progressed to daily spotting with thickened endometrial stripe on ultrasound. Given those findings, decision was made to proceed with diagnostic hysteroscopy with D and C for evaluation and hopefully treatment of this problem. The patient was consented on risks and benefits of this procedure. FINDINGS: Exam under anesthesia revealed a midposition uterus. The endometrial cavity had multiple small polyps and inflamed appearing endometrial lining. ESTIMATED BLOOD LOSS: Minimal. DESCRIPTION OF PROCEDURE: Patient was given preoperative prophylactic antibiotics and was taken operating room where she was given general anesthesia. She was placed in the dorsal lithotomy position in Eliseo stirrups with careful attention to positioning to avoid hyperextension or flexion of the lower extremities. The patient then had exam under anesthesia and was carefully prepped and draped in normal sterile fashion. The anterior lip of the cervix was grasped with a single-tooth tenaculum and the cervix was dilated with Hegar dilators. The diagnostic scope was inserted and the speculum was removed. Once I entered the endometrial cavity, there were multiple small polypoid structures and inflamed abnormal appearing endometrium. The MyoSure device was then used and under direct visualization, the cavity was carefully curetted. All endometrial polyps were resected at this time. The ostia were observed bilaterally and the instrumentation was removed and hemostasis was noted prior to the end of the procedure. The tenaculum was removed and hemostasis was achieved with Monsel solution and pressure. Sponge, lap, and needle counts were correct x2 and the patient was transferred to the recovery room in stable condition. /[id number] Radha Rodrigues MD EE/AQ / EE / MODL /[id number] documented in this encounter Plan of Treatment Not on file documented as of this encounter Visit Diagnoses Not on filedocumented in this encounter Care Teams Boat Driver Relationship Specialty Start Date End Date Reina Olmedo, CORK INSULATOR [address] [place] [address] PCP - General Nurse Practitioner 11/14/22 10/01/23 documented as of this encounter
--- OUTSIDE RECORDS SUMMARY | 2024-10-08 09:28 | XMS_ITS | Encounter Summary ---
Author Organization [employer] ([place], [place], [place], [place]) Address [address] [place] [address] Care Team Providers Care Medic Technician Name Role Phone Nelliekarissa Reina Nilsa TAMEZ Primary Care Provider [phone] Encounter Details Date Type Department Care Team (Late st Contact Info) Description 12/02/[address] [facility] [place] Family Medicine [address] [place] [address] ProviderVeronica MD [address] [place] [address] Social History Tobacco Use Types Packs/Day Years Used Date Smoking Tobacco: Never Assessed Comments Unknown Sex and Gender Information Value Date Recorded Sex Assigned at Not on file Legal Sex Female 4:58 PM CDT Gender Identity Not on file Sexual Orientation Not on file documented as of this encounter Miscellaneous Notes * Cerner Conversion Note - Historical ProviderMD - 12/02/2019 12:59 PM CDT Pre Procedure Adult Entered On: 12/02/2019 13:07 EDT Performed On: 12/02/2019 12:59 EDT by CLINTON CASTAÑEDA RN Height and Weight, Clinical Dosing Height Source : Stated Height Entry Format : [place] Height, Feet : 5 ft(Converted to: 152 cm, 60 Inch) Height, Inches : 0 Inch(Converted to: 0 ft 0 Inch, 0.00 cm) Clinical Height : 152.4 cm Weight Source : Standing scale Weight Entry Format : [place] Clinical Dosing Weight : 127.73 kg Weight, Pounds : 281 lb Body Surface Area (BSA) : 2.16 m2 Body Mass Index : 55 kg/m2 (>HHI) [place] Body Weight : 45 kg CLINTON CASTAÑEDA RN - 12/02/2019 12:59 EDT Health Histories Smoking Status : Former smoker, quit more than 30 days ago Smokeless Tobacco Status : Never CLINTON CASTAÑEDA RN - 12/02/2019 12:59 EDT Social History (As Of: 12/02/2019 13:07:24 EDT) Tobacco: Use in Last 12 Months: No. Smoking Status Former smoker. Last Used: quit 1999. (Last Updated: 06/30/2014 09:29:05 EDT by Petty Kaiser RN) Alcohol: Alcohol Use History No. (Last Updated: 12/02/2019 13:00:41 EDT by CLINTON CASTAÑEDA, JASSON) Substance Abuse: Drug Use Hx: No. Use in Last 12 Months: No. (Last Updated: 12/02/2019 13:00:51 EDT by CLINTON CASTAÑEDA, JASSON) Infectious Disease History Has the patient ever been tested for COVID-19? : Yes, Patient stated results Negative Date of COVID-19 test known? : Yes Does patient have symptoms of COVID-19? : No COVID19 Screening : No Experiencing Infectious Disease Symptoms : No symptoms Physical contact outside US in the last 30 days : No Infectious Disease History : None Tuberculosis Symptoms : None CLINTON CASTAÑEDA RN - 12/02/2019 12:59 EDT COVID19 PreProcedure Screening Is this an Emergent or Add on Procedure? : No Has patient been isolated since the test : Yes Exposed to COVID19 symptoms since test? : No CLINTON CASTAÑEDA RN - 12/02/2019 12:59 EDT Anesthesia/Transfusion History Family History of Anesthesia Reaction : Prior transfusion without reaction Transfusion History : Prior anesthesia without reaction Family History of Anesthesia Reaction : None CLINTON CASTAÑEDA RN - 12/02/2019 12:59 EDT Functional Assessment Living Situation : Home Patient Lives With : Spouse Persons Assisting Patient at Home : Spouse Current Daily Living Assistance : None Mobility Assistance Prior to Admission : Independent Current Home Treatments : Blood glucose monitoring CLINTON CASTAÑEDA RN - 12/02/2019 12:59 EDT [place] Suicide Severity Rating Scale (C-SSRS) CSSRS Past Month Wish to be : No CSSRS Past Month Suicidal Thoughts : No CSSRS Lifetime Suicide Behavior : No Suicide Severity Rating Score : 0 Suicide Severity Rating : No Additional Care Required at this time CLINTON CASTAÑEDA RN - 12/02/2019 12:59 EDT Psychosocial History Do You Have a History of the Following? : Anxiety, Depression Currently in Unsafe Situation : CLINTON Vaca RN - 12/02/2019 12:59 EDT Advance Directive Patient has Advance Directive *Q : No, patient requests information about Advance Directive CLINTON CASTAÑEDA RN - 12/02/2019 12:59 EDT Spiritual/Cultural Needs Any Spiritual/Cultural Needs or Requests : No LCINTON CASTAÑEDA RN - 12/02/2019 12:59 EDT Teaching/Learning Assessment Barriers To Learning : None evident Individuals Taught : Patient CLINTON CASTAÑEDA RN - 12/02/2019 12:59 EDT General Info Arrived From : Home Mode of Arrival on Unit : Ambulatory Legal Guardian : Unaccompanied Want Family/Rep/Phys Notified of Admit : No Emergency Contact #1 : CLINTON Rodríguez RN - 12/02/2019 12:59 EDT Emergency Contact #1 CLINTON CASTAÑEDA RN - 12/02/2019 13:12 EDT Emergency Contact #1 Relationship : mother Emergency Contact #2 : . Emergency Contact #2 Phone Number : . Emergency Contact #2 Relationship : . Primary Language : Taiwanese Preferred Communication Mode : Verbal Communication Barrier : None Bull Fiddle Player Needed : CLINTON Vaca RN - 12/02/2019 12:59 EDT Vital Measurements Temperature Source : Temporal artery scanning Temperature Mode : Fahrenheit Temperature, Fahrenheit : 99.1 Deg F Clinical Temperature, C : 37.3 Deg C Pulse Method : Non-Invasive BP Device Peripheral Pulse Rate : 97 bpm Respiratory Rate : 16 Breaths/Min Blood Pressure Location : Arm, left upper Blood Pressure Source : Non-Invasive BP Device Blood Pressure Position : Sitting Systolic Blood Pressure : 163 mmHg (HI) Diastolic Blood Pressure : 76 mmHg Oxygen Saturation : 100 % Oxygen Therapy Mode : Room air CLINTON CASTAÑEDA RN - 12/02/2019 12:59 EDT Sleep Apnea Risk Assmt BiPAP/CPAP Ordered for Home Use : No Hx of Obstructive Sleep Apnea Diagnosis : Yes Age over 50 Years Old : No Gender Male : No CLINTON CASTAÑEDA RN - 12/02/2019 12:59 EDT Jey Scale Jey Sensory Perception : No impairment Jey Moisture : Rarely moist Jey Activity : Walks occasionally Jey Mobility : No limitation Jey Nutrition : Adequate Jey Friction and Shear : No apparent problem Jey Score : 21 CLINTON CASTAÑEDA RN - 12/02/2019 12:59 EDT Oxygen Therapy Oxygen Therapy Mode : Room air CLINTON CASTAÑEDA RN - 12/02/2019 12:59 EDT Pain Assessment Pain Assessment : Initial assessment Pain Scale Goal : 3 Pain Scale Used : 0-10 Scale CLINTON CASTAÑEDA RN - 12/02/2019 12:59 EDT Fall Risk Scales ABCs Fall Injury Risk Identification : None LEWIS Hx Falls Immediate/Within 3 Months : No Lewis Secondary Diagnosis : Yes LEWIS Use of Ambulatory Aid : None LEWIS IV Therapy or IV Access : Yes Lewis Gait/Transferring : Normal, bedrest, immobile Lewis Mental Status : Oriented to own ability Lewis Fall Risk Score : 35 LEWIS Fall Scale Risk Level : 25-45 Medium Risk [place] Fall Interventions : Adequate lighting, Bed in low position, Call device within reach, Hourly comfort/safety rounds, Non-slip footwear, Personal items within reach, Reinforced to call for assistance before getting out of bed, Room free of clutter/spills, Upper side-rails up, Wheels locked, Wires/Cords secured CLINTON CASTAÑEDA RN - 12/02/2019 12:59 EDT Education Topics, Day of Surgery DayofSurgery Education Grid Anesthesia/Sedation : Verbalizes understanding Family Instructions : Verbalizes understanding IV's : Verbalizes understanding Medication Instructions : Verbalizes understanding Pain Management : Verbalizes understanding Plan of Care : Verbalizes understanding Responsible Adult : Verbalizes understanding CLINTON CASTAÑEDA RN - 12/02/2019 12:59 EDT Valuables and Belongings Valuables and Belongings : Clothing, Personal devices Clothing : Common streetwear Clothing Disposition : Sent to locker Personal Device Disposition : Sent to locker Personal Devices : Glasses CLINTON CASTAÑEDA RN - 12/02/2019 12:59 EDT Pain Scale Intensity : 0 CLINTON CASTAÑEDA RN - 12/02/2019 12:59 EDT Image 4 - Images currently included in the form version of this document have not been included in the text rendition version of the form. [place] Coma Neal Best Motor Response : Obey commands [place] Best Verbal Response : Oriented [place] Eye Opening Response : Spontaneous [place] Coma Score : 15 CLINTON CASTAÑEDA, RN - 12/02/2019 12:59 EDT Electronically signed by [facility], [facility] Conversion Elastic Cutter Cerner at 07/09/2022 12:14 PM CDT documented in this encounter Plan of Treatment Not on file documented as of this encounter Visit Diagnoses Not on filedocumented in this encounter Care Teams Medic Technician Relationship Specialty Start Date End Date Reina Olmedo, DIVISIONAL HUMAN RESOURCES DIRECTOR [address] [place] [address] PCP - General Nurse Practitioner 11/14/22 10/01/23 documented as of this encounter
--- OUTSIDE RECORDS SUMMARY | 2024-10-08 09:28 | XMS_ITS | Encounter Summary ---
Author Organization [employer] ([place], [place], [place], [place]) Address [address] [place] [address] Care Team Providers Care Alodize Machine Operator Name Role Phone NellieReina hancock Nilsa TAMEZ Primary Care Provider [phone] Encounter Details Date Type Department Care Team (Late st Contact Info) Description 08/03/2020 Transcribed Document [facility] [place] [address] [place] [address] ProviderVeronica MD [address] [place] [address] Social History Tobacco Use Types Packs/Day Years Used Date Smoking Tobacco: Never Assessed Comments Unknown Sex and Gender Information Value Date Recorded Sex Assigned at Not on file Legal Sex Female 4:58 PM CDT Gender Identity Not on file Sexual Orientation Not on file documented as of this encounter Miscellaneous Notes * Cerner Conversion Note - Historical ProviderMD - 08/03/2020 12:56 PM CDT Meds to Bed Enrollment Entered On: 08/04/2020 11:46 EDT Performed On: 08/03/2020 12:56 EDT by Dennis Gamino, Suction Drum Drier Operator Cert Meds to Bed Enrollment Patient Enrollment Decision: : Yes/enroll in meds to bed program Meds to Beds Comment : Dennis Bernal, Suction Drum Drier Operator Cert - 08/04/2020 11:46 EDT documented in this encounter Plan of Treatment Not on file documented as of this encounter Visit Diagnoses Not on filedocumented in this encounter Care Teams Alodize Machine Operator Relationship Specialty Start Date End Date Reina, TOOL DISPATCHER [address] [place] [address] PCP - General Nurse Practitioner 11/14/22 10/01/23 documented as of this encounter
--- OUTSIDE RECORDS SUMMARY | 2024-10-08 09:28 | XMS_ITS | Encounter Summary ---
Author Organization [employer] ([place], [place], [place], [place]) Address [address] [place] [address] Care Team Providers Care Dramatic Coach Name Role Phone Reina Olmedo APRN Primary Care Provider [phone] Encounter Details Date Type Department Care Team (Late st Contact Info) Description 08/03/2020 Transcribed Document [facility] [place] [address] [place] [address] ProviderVeronica MD [address] [place] [address] Social History Tobacco Use Types [...] 08/03/2020 10:03 AM CDT [facility] Main OR IntraOp Summary Primary Physician: YOU HAWTHORNE MD-OBG Finalized Date/Time: 08/03/20 11:31:52 Pt. Name: ANGÉLICA REBOLLEDO/Sex: 1970 Female Med Rec #: [id number] Physician: YOU HAWTHORNE MD-OBG Financial #: [id number] Pt. Type: O Room/Bed: [facility] Admit/Disch: 08/03/20 03:59:00 - Institution: E IntraOp Case Attendance Entry 1 Entry 2 Entry 3 Case Attendee YOU HAWTHORNE Holliday, Stewart R, RN LOVELY VELEZ PA-C MD-OBG Role Performed Surgeon/Proceduralist, Tobacco Weigher, First Physician administrative assistant front desk First Time In 08/03/20 09:42:00 08/03/20 09:42:00 08/03/20 09:42:00 Time Out 08/03/20 11:28:00 08/03/20 11:28:00 08/03/20 11:28:00 Procedure Abdominal Hysterectomy Abdominal Hysterectomy Abdominal Hysterectomy Laparoscopic, Laparoscopic, Laparoscopic, Salpingectomy Salpingectomy Salpingectomy Laparoscopic Laparoscopic Laparoscopic Other Attendee Superficial Wound Closed By: Last Modified By: Foster Avilez, Foster Trejo, Foster Trejo, JASSON 08/03/20 11:31:44 08/03/20 11:31:44 08/03/20 11:31:44 Entry 4 Entry 5 Entry 6 Case Attendee BREANNA HOWE TAYLOR, SARAH, ST Sharp, Mark AIR PUMPER Role Performed AIR PUMPER/Nurse Wholesaler Scrub, First Scrub, Second Time In 08/03/20 09:42:00 08/03/20 09:42:00 08/03/20 09:42:00 Time Out 08/03/20 11:28:00 08/03/20 11:28:00 08/03/20 11:28:00 Procedure Abdominal Hysterectomy Abdominal Hysterectomy Abdominal Hysterectomy Laparoscopic, Laparoscopic, Laparoscopic, Salpingectomy Salpingectomy Salpingectomy Laparoscopic Laparoscopic Laparoscopic Other Attendee Superficial Wound Closed By: Last Modified By: Foster Avilez RN Holliday, Stewart R, RN Holliday, Stewart R, JASSON 08/03/20 11:31:44 08/03/20 11:31:44 08/03/20 11:31:44 E IntraOp Case Attendance Audit 08/03/20 11:31:44 Glass Lined Tank Repairer: JERONIMO Modifier: JERONIMO 1 <+> Time In 1 <+> Time Out 1 <*> Procedure Abdominal Hysterectomy Laparoscopic, Salpingectomy Laparoscopic 2 <+> Time In 2 <+> Time Out 2 <*> Procedure Abdominal Hysterectomy Laparoscopic, Salpingectomy Laparoscopic 3 <+> Time In 3 <+> Time Out 3 <*> Procedure Abdominal Hysterectomy Laparoscopic, Salpingectomy Laparoscopic 4 <+> Time In 4 <+> Time Out 4 <*> Procedure Abdominal Hysterectomy Laparoscopic, Salpingectomy Laparoscopic 5 <+> Time In 5 <+> Time Out 5 <*> Procedure Abdominal Hysterectomy Laparoscopic, Salpingectomy Laparoscopic 6 <+> Time In 6 <+> Time Out 6 <*> Procedure Abdominal Hysterectomy Laparoscopic, Salpingectomy Laparoscopic [facility] IntraOp Case Times Entry 1 Patient In Room Time 08/03/20 09:42:00 Out Room Time 08/03/20 11:28:00 Anesthesia Start Time 08/03/20 09:42:00 Stop Time 08/03/20 11:28:00 Anesthesia Ready 08/03/20 09:42:00 Surgery / Procedure Times Start Time 08/03/20 10:03:00 Stop Time 08/03/20 11:20:00 Last Modified By: Foster Avilez RN 08/03/20 11:31:43 [facility] IntraOp Case Times Audit 08/03/20 11:31:43 Glass Lined Tank Repairer: [email or web address] Modifier: HOLLIDSR <+> 1 Out Room Time <+> 1 Stop Time 08/03/20 11:25:20 Glass Lined Tank Repairer: HOLLIDSR Modifier: HOLLIDSR <+> 1 Stop Time 08/03/20 10:06:00 Glass Lined Tank Repairer: [email or web address] Modifier: HOLLIDSR <+> 1 Start Time [facility] IntraOp Cautery Entry 1 ESU Identification Cautery Type Monopolar ESU ID Number [id number] ID Type Hospital Number Cautery Settings Cut Setting 30 Coag Setting 30 ESU Grounding Pad Ground Pad Type Adult Grounding Pad Foster Avilez, RN Applied By Grounding Pad Site Intact Skin Condition Before Cautery Grounding Pad Site Intact Skin Condition After Cautery Last Modified By: Foster Avilez, RN 08/03/20 10:06:35 [facility] IntraOp Cautery Audit 08/03/20 10:06:35 Glass Lined Tank Repairer: JERONIMO Modifier: [email or web address] 1 <*> Cut Setting 0 1 <+> ID Number [facility] IntraOp Communication Entry 1 Communication To Family/Significant other Comment procedure update Communication By Foster Avilez, RN Last Modified By: Foster Avilez, RN 08/03/20 11:07:50 [facility] IntraOp Counts Verification Entry 1 Procedure Abdominal Hysterectomy Laparoscopic, Salpingectomy Laparoscopic Count Info Count Type Sponge, Sharps, Instrument, Miscellaneous Counts Verification Baseline/pre-procedure Sequence Counts Performed By Count Performed By Ronal Sloan (Scrub) Count Performed By Foster Avilez RN (RN) Last Modified By: Foster Avilez RN 08/03/20 09:35:30 [facility] IntraOp Counts Final Entry 1 Procedure Abdominal Hysterectomy Laparoscopic, Salpingectomy Laparoscopic Final Count Info Count Type Sponge, Sharps, Miscellaneous Counts Verification Skin Closure/end of Sequence procedure Count Results Correct, surgeon notified Counts Performed By Count Performed By SHAWANDA PATEL ST (Scrub) Count Performed By Foster Avilez, RN (RN) Last Modified By: Foster Avilez RN 08/03/20 11:11:48 [facility] IntraOp Counts Final Audit 08/03/20 11:11:48 Glass Lined Tank Repairer: WALTERADIN Modifier: [email or web address] 1 <*> Procedure Abdominal Hysterectomy Laparoscopic, Salpingectomy Laparoscopic 1 <+> Count Performed By (Scrub) 1 <+> Count Performed By (RN) [facility] IntraOp Cultures and Spec Summary Entry 1 Cultrures and Specimens Specimen Ordered: Yes Test(s) Routine/Path-Lab Requested/Final Disposition Last Modified By: Foster Avilez RN 08/03/20 09:35:07 [facility] IntraOp Departure from OR Entry 1 Integumentary Assessment Transfer/Handoff Transfer to PACU Phase I Post-op Transport Stretcher/Gurney Via Patient Transport Foster Avilez, Accompanied by RN, BREANNA HOWE, AIR PUMPER Last Modified By: Fosetr Avilez RN 08/03/20 10:06:36 [facility] IntraOp Dressing and Packing Entry 1 Type Dressing Location ABDOMEN, VAGINA Last Modified By: Foster Avilez RN 08/03/20 09:35:13 [facility] IntraOp Fire Risk Assessment Entry 1 Fire Info Surgical Site or 0- No Incision Above the Xyphoid Open O2 Source 0- No (Mask or Cannula) Available Ignition 0- No (ESU, Laser, Light Source) Fire Risk 1 Assessment Score Fire Score Fire Risk Yes Assessment Complete Fire Risk Foster Avilez packing tractor machine operator Verified By Fire Risk 08/03/20 09:34:00 Assessment Verified Date/Time Fire Risk Standard Fire Yes Safety Precautions Followed Last Modified By: Foster Avilez RN 08/03/20 09:34:03 [facility] IntraOp General Case Medical Hospital Sales 1 Case Information OR OR 07 SJE Case Level 1 Room Verified Yes Wound Class II - Clean-Contaminated Specialty Gynecology Anesthesia Type General ASA Class 3 Diagnosis Preop Diagnosis pelvic pain, AUB Postop Diagnosis refer to MD notes Last Modified By: Foster Avilez RN 08/03/20 10:06:54 [facility] IntraOp General Case Data Audit 08/03/20 10:06:54 Glass Lined Tank Repairer: JERONIMO Modifier: JERONIMO <+> 1 ASA Class <+> 1 Anesthesia Type <+> 1 Preop Diagnosis <+> 1 Postop Diagnosis <+> 1 Room Verified [facility] IntraOp Intraoperative Assessment Entry 1 Valid History / Yes Physical in Chart Preoperative Yes Checklist Reviewed/Evaluated Allergies Reviewed Yes Patient is Latex No Sensitive Isolation Not applicable Precautions Noted Skin Assessment Yes Verified Present Upon IVs Arrival to OR Last Modified By: Foster Avilez RN 08/03/20 09:34:06 [facility] IntraOp Intraoperative Equipment Entry 1 Equipment Intraop Monitoring Electrocardiogram Three lead placement (ECG) Electrode Placement Blood Pressure Non-Invasive BP Device Source Blood Pressure Arm, left upper Location Pulse Oximeter Hand, right Probe Site Antiembolic Devices Antiembolic Devices Sequential compression device, knee high Antiembolic Device Bilateral Location Scopes Photo/Video Documentation Last Modified By: Foster Avilez RN 08/03/20 10:07:16 [facility] IntraOp Medication Admin Entry 1 Medication/Irrigant Marcaine 0.5% w/ epinephrine 1:200,000 30ml vial - [id number] Route of local Administration Dose Dose 30 Unit of Measure ml Volume qs Administered By YOU HAWTHORNE MD-OBG Procedure Irrigation Last Modified By: Foster Avilez RN 08/03/20 09:35:10 [facility] IntraOp Patient Positioning Entry 1 Procedure Abdominal Hysterectomy Laparoscopic Left Arm Position Tucked and padded at side Right Arm Position Tucked and padded at side Left Leg Position Secured in Leg Perales Right Leg Position Secured in Leg Perales Feet Uncrossed Yes Pressure Points Yes Checked Positioning Devices Stirrups/Leg Perales, Boot Positioned By Foster Avilez, RN, BREANNA HOWE, LIZZ, YOU HAWTHORNE MD-OBG Position Verified Positioning Yes Verified by Anesthesia Positioning Yes Verified by Surgeon Last Modified By: Foster Avilez RN 08/03/20 10:06:57 [facility] IntraOp Sign In Entry 1 Patient, Site, Yes Procedure Identified Surgical Consent Yes Confirmed Relevant Surgical Yes Documents Available Surgical Site N/A Marked by person performing procedure Anesthesia Machine Yes Check Completed Medication Checks Yes Completed Airway Difficult No Airway/Aspiration Risk Difficult Yes Airway/Aspiration Intervention Equipment Available Blood Loss Risk Yes Blood Loss Yes Intervention Equipment Prepared and Ready Hypothermia Risk Yes Warming Measures Yes Taken Last Modified By: Foster Avilez RN 08/03/20 09:33:56 [facility] Intra Op Sign Out Entry 1 RN Confirmation Surgical Yes Procedure(s) Identified Instrument, Sponge Yes and Sharps Counts Correct/Documented Equipment Problems N/A Documented Urinary Catheter Yes Documented in IView Ness Patient Yes Recovery Concerns Reviewed with Anesthesia Provider, Surgeon and RN Ness Patient Yes Management Concerns Reviewed with Anesthesia Provider, Surgeon and RN Safety Checklist Yes Elements Complete? RN Sign Out Foster Avilez RN Signature RN Sign Out 08/03/20 11:31:00 Signature Date/Time Plan of Care Outcome - Fire Risk OUTCOME STATEMENT: Goal met Patient is free from injury related to surgical fire Plan of Care Outcome - Pt Positioning OUTCOME STATEMENT: Goal met Absence of signs and symptoms of positioning injury. Plan of Care Outcome - Skin Prep OUTCOME STATEMENT: Goal met Intraoperative care is consistent with measures to prevent infection Plan of Care Outcome - Xray/Images OUTCOME STATEMENT: Goal met Absence of observable signs or symptoms of radiation injury Plan of Care Outcome - Counts OUTCOME STATEMENT: Goal met Absence of signs and symptoms of injury related to extraneous objects Last Modified By: Foster Avilez RN 08/03/20 11:31:50 S[facility] IntraOp Skin Prep Entry 1 Procedure Abdominal Hysterectomy Laparoscopic Prescribed Yes Pre-Surgical Prep Completed Prep Area ABDOMEN, VAGINA Intraop Prep Prep Agents Chloraprep, Betadine solution Prep by Foster Avilez, RN Hair Removal Last Modified By: Foster Avilez RN 08/03/20 09:33:59 [facility] IntraOp Surgical Procedures Entry 1 Entry 2 Procedure Abdominal Hysterectomy Salpingectomy Laparoscopic Laparoscopic Modifiers Additional TOTAL LAPAROSCOPIC Procedure HYSTERECTOMY WITH Description BILATERAL SALPINGECTOMIES Primary Procedure Yes No Primary Surgeon YOU HAWTHORNE, YOU HAWTHORNE MD-OBG -OBG Start 08/03/20 10:03:00 08/03/20 10:03:00 Stop 08/03/20 11:20:00 08/03/20 11:20:00 Physician States Cecum Reached Anesthesia Type General General Specialty Gynecology Gynecology Wound Class II - Clean-Contaminated II - Clean-Contaminated Last Modified By: Foster Avilez, RN Foster Avilez RN 08/03/20 11:25:21 08/03/20 11:25:21 S[facility] IntraOp Time Out Entry 1 Procedure to be Abdominal Hysterectomy Performed Laparoscopic, Salpingectomy Laparoscopic Time Out Time Out Pause Time 08/03/20 10:02:00 All activity Yes suspended (unless life threatening emergency) Team Verbally Correct patient Confirms Information identity, Correct side and site are marked, Consent form is present and accurate, Agreement on the procedure to be done, Correct patient position, Relevant images/results properly labeled/appropriately displayed, Confirm antibiotics have been administered, Confirm the skin prep has dried, Performed in location of procedure after prepped/draped Antibiotic Yes Prophylaxis Administered Or In Progress Within the Last 60 Minutes Beta Jermain N/A Administered Venous Yes Thromboembolism Prophylaxis Required Anticipated Critical Events Surgeon None expected Anesthesia Provider None expected Nursing Assures Sterility of instruments, Implant Availability Essential Imaging Yes Labeled and Displayed Last Modified By: Foster Avilez RN 08/03/20 10:06:24 Case Comments <None> Finalized By: Foster Avilez, RN Document Signatures Signed By: Foster Avilez RN 08/03/20 11:31 documented in this encounter Plan of Treatment Not on file documented as of this encounter Visit Diagnoses Not on filedocumented in this encounter Care Teams Dramatic Coach Relationship Specialty Start Date End Date Reina Olmedo, GRINDER LAP [address] [place] [address] PCP - General Nurse Practitioner 11/14/22 10/01/23 documented as of this encounter
--- OUTSIDE RECORDS SUMMARY | 2024-10-08 09:28 | XMS_ITS | Encounter Summary ---
Author Organization [employer] ([place], [place], [place], [place]) Address [address] [place] [address] Care Team Providers Care Special Diet Cook Name Role Phone Reina Olmedo APRN Primary Care Provider [phone] [phone] Encounter Details Date Type Department Care Team (Late st Contact Info) Description 08/03/2020 Transcribed Document [facility] NIGHT SHIFT - [address] [facility] [address] [place] [address] Radha Rodrigues MD [address] [facility], [address] [place] [address] Social History Tobacco Use Types Packs/Day Years Used Date Smoking Tobacco: Never Assessed Comments Unknown Sex and Gender Information Value Date Recorded Sex Assigned at Not on file Legal Sex Female 4:58 PM CDT Gender Identity Not on file Sexual Orientation Not on file documented as of this encounter Miscellaneous Notes * Cerner Conversion Note - Radha Rodrigues MD - 08/03/2020 1:07 PM EDT DATE OF PROCEDURE: 08/03/2020 SURGEON: Radha Rodrigues MD PREOPERATIVE DIAGNOSES: 1. Abnormal uterine bleeding with failed medical management. 2. Morbid obesity. 3. Strong family history of uterine cancer. POSTOPERATIVE DIAGNOSES: 1. Abnormal uterine bleeding with failed medical management. 2. Morbid obesity. 3. Strong family history of uterine cancer. 4. Adenomyosis. PROCEDURES PERFORMED: Total laparoscopic hysterectomy, bilateral salpingectomy. NURSING TEACHER: Aidee. INDICATION FOR SURGERY: The patient is a 49-year-old nulliparous woman with history of persistent abnormal uterine bleeding. She has been on multiple medical options including Mirena, various progestins. The patient had no improvement in symptoms. She has had hysteroscopy, D and C x2 to treat this problem with no improvement in bleeding pattern either. The patient strongly prefers definitive surgical management with hysterectomy. I reviewed risks and benefits of surgical management including bleeding, infection, damage to other organs. The patient is morbidly obese and I reviewed she has increased risks with this issue. She understood this discussion and strongly preferred to proceed with surgical management. FINDINGS: Large, boggy, globular uterus consistent with adenomyosis. Bilateral ovaries were normal and fallopian tubes were normal. DESCRIPTION OF PROCEDURE: The patient was given preoperative prophylactic antibiotics and was sent to the operating room, where she was given general anesthesia. She was placed in the dorsal lithotomy position with her arms tucked in neutral position at the sides and the diaz bag patient positioner was utilized. She was then examined under anesthesia and was prepped and draped in the normal sterile fashion. She had a AARON uterine manipulator inserted without difficulty and Contreras catheter was then inserted. I then changed my gloves, attention was turned to the abdominal portion of the case. Due to the large panniculus, I made the incision 2 to 3 cm above the umbilicus. I injected the area with 0.5% Marcaine with epinephrine. I made an 8 mm incision. I grasped the fascia with a tenaculum, elevated the fascia. I inserted a bariatric Veress needle with opening pressure of 8 mmHg. This was done on the second attempt. Once the Veress needle was inserted and abdomen was insufflated with CO2 gas, I placed a bariatric 8 mm trocar without difficulty or complications. The patient was then placed in steep Trendelenburg and I placed bilateral 5 mm ports after injecting with 10 mL of 0.5% Marcaine with epinephrine. This was done without complications, and the patient was placed in steep Trendelenburg. Once this was done, I started on the patient's left, identified ureter and isolated the fimbria of the fallopian tube, dissected tube off the surface of the ovary. I ligated and transected utero-ovarian pedicle, then the round ligament, then down the broad ligament. I created the bladder flap, which was carefully dissected off the surface of the anterior lower uterine segment and cervix. I then ligated and transected the uterine vessels. I then performed the same procedure using the same technique with a 5 mm LigaSure device on the patient's right side. I used a monopolar hook to perform the colpotomy. Once this was done, I delivered the uterus through the vagina. I had the uterus pulled into the vagina and had to bivalve the uterus to the level of the fundus to manipulate the uterus out of the vagina. Once this was done, I inserted the vaginal insufflator. Then, I went to the patient's left incision. I removed the trocar and inserted the needle through the 5 mm incision. I then reinserted the trocar. I then used bariatric instruments to close the cuff incorporating the mucosa and peritoneum into each bite. I also incorporated the uterosacral ligaments into the angles of the closure. Once I ran the cuff, there was excellent hemostasis, then I went back several sutures to lock the closure. I did a low pressure check at 8 mmHg. There was no bleeding and then I did a careful inspection of the vagina both digitally and with a sponge stick and the cuff was completely closed and there was no bleeding. I then applied FloSeal to all cut surfaces. Instrumentation was removed after CO2 gas was removed from the patient's abdomen. The incisions were closed with 3-0 monofilament suture and bandages were applied. The patient was transported to the recovery room in alert and stable condition. /[id number] Radha Rodrigues MD EE/AQ / EE / MODL /[id number] documented in this encounter Plan of Treatment Not on file documented as of this encounter Visit Diagnoses Not on filedocumented in this encounter Care Teams Special Diet Cook Relationship Specialty Start Date End Date Reina Olmedo, COURTROOM DEPUTY [address] [place] [address] PCP - General Nurse Practitioner 11/14/22 10/01/23 documented as of this encounter
--- OUTSIDE RECORDS SUMMARY | 2024-10-08 09:28 | XMS_ITS | Encounter Summary ---
Author Organization [employer] ([place], [place], [place], [place]) Address [address] [place] [address] Care Team Providers Care Flue Blower Name Role Phone Nelliekarissa Reina Ash APRN Primary Care Provider [phone] [phone] Encounter Details Date Type Department Care Team (Late st Contact Info) Description 07/26/2020 Transcribed Document [facility] [place] Family Medicine [address] [place] [address] ProviderVeronica MD [address] [place] [address] Social History Tobacco Use Types Packs/Day Years Used Date Smoking Tobacco: Never Assessed Comments Unknown Sex and Gender Information Value Date Recorded Sex Assigned at Not on file Legal Sex Female 4:58 PM CDT Gender Identity Not on file Sexual Orientation Not on file documented as of this encounter Miscellaneous Notes * Cerner Conversion Note - Historical ProviderMD - 07/26/2020 1:13 PM CDT PAT Adult Entered On: 07/26/2020 13:14 EDT Performed On: 07/26/2020 13:13 EDT by RENZO MORRELL RN Vital Measurements Temperature Source : Temporal artery scanning Temperature Mode : Fahrenheit Temperature, Fahrenheit : 98.4 Deg F Clinical Temperature, C : 36.9 Deg C Peripheral Pulse Rate : 67 bpm Respiratory Rate : 18 Breaths/Min Systolic Blood Pressure : 127 mmHg Diastolic Blood Pressure : 74 mmHg Oxygen Saturation : 97 % Oxygen Therapy Mode : Room air RENZO MORRELL RN - 07/26/2020 13:13 EDT Height and Weight, Clinical Dosing Height Source : Stated Height Entry Format : [place] Height, Feet : 5 ft(Converted to: 152 cm, 60 Inch) Height, Inches : 0 Inch(Converted to: 0 ft 0 Inch, 0.00 cm) Clinical Height : 152.4 cm Weight Source : Standing scale Weight Entry Format : [place] Clinical Dosing Weight : 127.73 kg Weight, Pounds : 281 lb Body Surface Area (BSA) : 2.16 m2 Body Mass Index : 55 kg/m2 (>HHI) [place] Body Weight : 45 kg RENZO MORRELL RN - 07/26/2020 13:13 EDT Health Histories Smoking Status : Former smoker, quit more than 30 days ago Smokeless Tobacco Status : Never RENZO MORRELL RN - 07/26/2020 13:13 EDT Social History (As Of: 07/26/2020 13:14:51 EDT) Tobacco: Use in Last 12 Months: [...] (Last Updated: 07/26/2020 13:12:58 EDT by RENZO MORRELL, JASSON) Substance Abuse: Drug Use Hx: No. Use in Last 12 Months: No. (Last Updated: 12/02/2019 13:00:51 EDT by CLINTON CASTAÑEDA RN) Drug Use Hx: No. (Last Updated: 07/26/2020 13:12:58 EDT by RENZO MORRELL RN) Infectious Disease History COVID19 Screening : No Experiencing Infectious Disease Symptoms : No symptoms Physical contact outside US in the last 30 days : No Tuberculosis Symptoms : None RENZO MORRELL RN - 07/26/2020 13:15 EDT Has the patient ever been tested for COVID-19? : Yes, Patient stated results pending Date of COVID-19 test known? : Yes Date of COVID-19 Test : 07/25/2020 EDT Does patient have symptoms of COVID-19? : No RENZO MORRELL RN - 07/26/2020 13:13 EDT Infectious Disease History : Chicken pox/Shingles RENZO MORRELL RN - 07/26/2020 13:15 EDT COVID19 PreProcedure Screening Is this an Emergent or Add on Procedure? : No Date PreProcedure COVID-19 test known? : Yes Date of PreProcedure COVID-19 : 07/25/2020 EDT Has patient been isolated since the test : N/A - PreProcedure, in-person visit Exposed to COVID19 symptoms since test? : N/A - PreProcedure, in-person visit RENZO MORRELL RN - 07/26/2020 13:15 EDT Anesthesia/Transfusion History Family History of Anesthesia Reaction : Prior transfusion without reaction Transfusion History : Prior anesthesia without reaction Family History of Anesthesia Reaction : None RNEZO MORRELL RN - 07/26/2020 13:15 EDT Functional Assessment Functional ADL Evaluation Index EBN Bathing : Independent (2) Dressing : Independent (2) Toileting : Independent (2) Transferring Bed or Chair : Independent (2) Continence : Independent (2) Feeding : Independent (2) RENZO MORRELL RN - 07/26/2020 13:15 EDT ADL Index Score : 12 RENZO MORRELL RN - 07/26/2020 13:15 EDT Advance Directive Patient has Advance Directive *Q : No, patient refuses Advance Directive information RENZO MORRELL RN - 07/26/2020 13:15 EDT [place] Suicide Severity Rating Scale (C-SSRS) CSSRS Past Month Wish to be : No CSSRS Past Month Suicidal Thoughts : No CSSRS Lifetime Suicide Behavior : No Suicide Severity Rating Score : 0 Suicide Severity Rating : No Additional Care Required at this time RENZO MORRELL RN - 07/26/2020 13:15 EDT Psychosocial History Do You Have a History of the Following? : Anxiety, Depression Currently in Unsafe Situation : No RENZO MORRELL RN - 07/26/2020 13:15 EDT Teaching/Learning Assessment Barriers To Learning : None evident Individuals Taught : Patient Readiness to Learn : Cooperative Readiness to Learn : Explanation, Printed materials RENZO MORRELL RN - 07/26/2020 13:15 EDT Education Topics, Periop Preadmission Perioperative Education Grid Arrival Time/Place : Verbalizes understanding CHG Preoperative Bathing/Cloths : Verbalizes understanding Infection Control : Verbalizes understanding NPO Status/Directions : Verbalizes understanding Preprocedure Preparations : Verbalizes understanding Preprocedure Tests/Labs : Verbalizes understanding Remove Body Piercings : Verbalizes understanding Responsible Adult : Verbalizes understanding Take/Hold Medications Pre-Procedure : Verbalizes understanding RENZO MORRELL RN - 07/26/2020 13:15 EDT General Info Want Family/Rep/Phys Notified of Admit : No Emergency Contact #1 : Meryl Cervantes Emergency Contact #1 Emergency Contact #1 Relationship : mother Emergency Contact #2 : - Emergency Contact #2 Phone Number : - Emergency Contact #2 Relationship : - Primary Language : Turkmen Preferred Communication Mode : Verbal Communication Barrier : None Sanitation Manager Needed : No RENZO MORRELL RN - 07/26/2020 13:15 EDT Jey Scale Jey Sensory Perception : No impairment Jey Moisture : Rarely moist Jey Activity : Walks frequently Jey Mobility : No limitation Jey Nutrition : Excellent Jey Friction and Shear : No apparent problem Jey Score : 23 RENZO MORRELL RN - 07/26/2020 13:15 EDT Sleep Apnea Risk Assmt BiPAP/CPAP Ordered for Home Use : Yes Hx of Obstructive Sleep Apnea Diagnosis : Yes BiPAP/CPAP Used at Home : No Reason BiPAP/CPAP Not Used at Home : insurance would not cover Age over 50 Years Old : No Gender Male : No RENZO MORRELL RN - 07/26/2020 13:15 EDT documented in this encounter Plan of Treatment Not on file documented as of this encounter Visit Diagnoses Not on filedocumented in this encounter Care Teams Flue Blower Relationship Specialty Start Date End Date Reina Olmedo, GRANT COORDINATOR [address] [place] [address] PCP - General Nurse Practitioner 11/14/22 10/01/23 documented as of this encounter
--- OUTSIDE RECORDS SUMMARY | 2024-10-08 09:28 | XMS_ITS | Encounter Summary ---
Author Organization [employer] ([place], [place], [place], [place]) Address [address] [place] [address] Care Team Providers Care Pattern Ruler Name Role Phone Reina Olmedo APRN Primary Care Provider [phone] Encounter Details Date Type Department Care Team (Late st Contact Info) Description 08/03/2020 Transcribed Document [facility] [place] [address] [place] [address] ProviderVeronica MD [address] [place] [address] Social History Tobacco Use Types [...] 08/03/2020 10:03 AM CDT [facility] Main OR PACU Summary Primary Physician: YOU HAWTHORNE MD-OBG Finalized Date/Time: 08/03/20 12:34:57 Pt. Name: YANE REBOLLEDO/Sex: 1970 Female Med Rec #: [id number] Physician: YOU HAWTHORNE MD-OBG Financial #: [id number] Pt. Type: O Room/Bed: [facility] Admit/Disch: 08/03/20 03:59:00 - Institution: [facility] Main OR PACU Case Times Entry 1 In PACU I 08/03/20 11:29:00 Ready for PACU 08/03/20 12:34:00 Discharge Discharge from PACU 08/03/20 12:34:00 I Last Modified By: REINA SANCHEZ, [id number] CAR 08/03/20 12:34:23 [facility] Main OR PACU Case Times Audit 08/03/20 12:34:52 Gear Room Keeper: [id number] Modifier: [id number] <+> 1 In PACU I Finalized By: REINA SANCHEZ, [id number] CAR Document Signatures Signed By: REINA SANCHEZ, [id number] CAR 08/03/20 12:34 Electronically signed by Tayler Carnes Conversion Marine Equipment Preservation Inspector Cerner at 07/09/2022 12:42 PM CDT documented in this encounter Plan of Treatment Not on file documented as of this encounter Visit Diagnoses Not on filedocumented in this encounter Care Teams Pattern Ruler Relationship Specialty Start Date End Date Reina Olmedo, AIR POLLUTION ANALYST [address] [place] [address] PCP - General Nurse Practitioner 11/14/22 10/01/23 documented as of this encounter
--- OUTSIDE RECORDS SUMMARY | 2024-10-08 09:28 | XMS_ITS | Encounter Summary ---
Author Organization [employer] ([place], [place], [place], [place]) Address [address] [place] [address] Care Team Providers Care Automotive Parts Specialist Name Role Phone NelliekarissaReina APRN Primary Care Provider [phone] [phone] Encounter Details Date Type Department Care Team (Late st Contact Info) Description 12/02/2019 Transcribed Document [facility] [place] [address] [place] [address] ProviderVeronica MD [address], [place] [id number] Social History Tobacco Use Types Packs/Day Years Used Date Smoking Tobacco: Never Assessed Comments Unknown Sex and Gender Information Value Date Recorded Sex Assigned at Not on file Legal Sex Female 4:58 PM CDT Gender Identity Not on file Sexual Orientation Not on file documented as of this encounter Miscellaneous Notes * Cerner Conversion Note - Veronica Correa MD - 12/02/2019 4:37 PM CDT Patient Education Materials Follows: General Anesthesia, Adult, Care After This sheet [...] activities are safe for you. ??? Take tfuj-cgj-ujhypau and prescription medicines only as told by [...] 06/16/2001 Document Revised: 03/13/2018 Document Reviewed: 10/24/2017 [employer] Patient Education ? 2020 [employer]. Myomectomy, Care After This sheet gives you [...] these instructions at home: Medicines ??? Take xslc-dvk-mrywgia and prescription medicines only as told by [...] and water are not available, use hand assistant plant control operator. ? Change your dressing as told by [...] urine clear or pale yellow. ? Take ihvl-vyx-ycvgsvi or prescription medicines. ? Eat foods that [...] 07/31/2011 Document Revised: 02/20/2018 Document Reviewed: 04/10/2017 [employer] Patient Education ? 2020 [employer] Hysteroscopy, Care After This sheet gives you [...] instructions at home: Activity ??? Rest for 1?2 days after the procedure. ??? Do not [...] taking prescription pain medicines. Medicines ??? Take ifpa-elv-iqhjxva and prescription medicines only as told by [...] urine clear or pale yellow. ? Take zuaa-hws-jsoltuo or prescription medicines. ? Eat foods that [...] 12/29/2013 Document Revised: 02/20/2018 Document Reviewed: 04/08/2017 [employer] Patient Education ? 2020 [employer]. documented in this encounter Plan of Treatment Not on file documented as of this encounter Visit Diagnoses Not on filedocumented in this encounter Care Teams Automotive Parts Specialist Relationship Specialty Start Date End Date Reina Olmedo, SALESPERSON [employer] [address] [place] [address] PCP - General Nurse Practitioner 11/14/22 10/01/23 documented as of this encounter
--- OUTSIDE RECORDS SUMMARY | 2024-10-08 09:28 | XMS_ITS | Encounter Summary ---
Author Organization [employer] ([place], [place], [place], [place]) Address [address] [place] [address] Care Team Providers Care Rail Gang Supervisor Name Role Phone NellieReina hancock Nilsa TAMEZ Primary Care Provider [phone] [phone] Encounter Details Date Type Department Care Team (Late st Contact Info) Description 07/27/2020 Transcribed Document [facility] [place] Family Medicine [address] [place] [address] ProviderVeronica MD [address] [place] [address] Social History Tobacco Use Types Packs/Day Years Used Date Smoking Tobacco: Never Assessed Comments Unknown Sex and Gender Information Value Date Recorded Sex Assigned at Not on file Legal Sex Female 4:58 PM CDT Gender Identity Not on file Sexual Orientation Not on file documented as of this encounter Miscellaneous Notes * Cerner Conversion Note - Historical ProviderMD - 07/27/2020 11:30 AM CDT Event Note Entered On: 07/27/2020 11:44 EDT Performed On: 07/27/2020 11:30 EDT by LETY WASSERMAN RN Event Note Event Date/Time : 07/27/2020 11:30 EDT Description of Event : Return from labor training manager per stretcher awake and alert, skin w/d, mother here at bedside. Has TR pressure band right radial artery-CDI, no swelling, no bleeding, no pain. Cap refill less than 2 seconds right fingers. Has arterial splint in place right wrist-returns understanding for use. Food and drink ordered. LETY WASSERMAN, RN - 07/27/2020 11:42 EDT Electronically signed by Deyvi [facility] Conversion Data Architect Manager Cerner at 07/09/2022 12:14 PM CDT documented in this encounter Plan of Treatment Not on file documented as of this encounter Visit Diagnoses Not on filedocumented in this encounter Care Teams Rail Gang Supervisor Relationship Specialty Start Date End Date Reina Olmedo, AUTOMATIC GRINDING MACHINE OPERATOR [address] [place] [address] PCP - General Nurse Practitioner 11/14/22 10/01/23 documented as of this encounter
--- OUTSIDE RECORDS SUMMARY | 2024-10-08 09:28 | XMS_ITS | Encounter Summary ---
Author Organization [employer] ([place], [place], [place], [place]) Address [address] [place] [address] Care Team Providers Care Test Engineer Nuclear Equipment Name Role Phone Reina Olmedo Nilsa TAMEZ Primary Care Provider [phone] Encounter Details Date Type Department Care Team (Late st Contact Info) Description 07/27/2020 Transcribed Document [facility] [place] [address] [place] [address] ProviderVeronica MD [address] [place] [address] Social History Tobacco Use Types Packs/Day Years Used Date Smoking Tobacco: Never Assessed Comments Unknown Sex and Gender Information Value Date Recorded Sex Assigned at Not on file Legal Sex Female 4:58 PM CDT Gender Identity Not on file Sexual Orientation Not on file documented as of this encounter Miscellaneous Notes * Cerner Conversion Note - Veronica ProviderMD - 07/27/2020 12:51 PM CDT Nursing Discharge Summary Entered On: 07/27/2020 12:53 EDT Performed On: 07/27/2020 12:51 EDT by LETY WASSERMAN RN Discharge Documentation Discharge Date/Time : 07/27/2020 14:53 EDT LETY WASSERMAN RN - 07/27/2020 14:53 EDT Patient Disposition, General : Discharge Discharge To : Home with ambulatory/outpatient follow-up Name of Receiving Facility/Provider : Dr. Jean-Baptiste Mode Of Departure, General Discharge : Ambulatory Accompanied By, Discharge : Mother IV Discontinued : Yes Personal Belongings With Patient : Yes Pt's Own Supply of Medications Returned : No patient supply of medications to return Prescriptions Given to Patient : No Medications Given to Patient : No Discharge Instructions Reviewed With, Opportunity For Questions Given : Patient, Mother Patient Education Completed : Yes Teaching Method : Demonstration, Explanation Teaching Evaluation : Returns demonstration, Verbalizes understanding Worker's Compensation Paperwork Completed : No Discharge, Comment : Radial site instruction sheet given and reviewed. LETY WASSERMAN RN - 07/27/2020 12:51 EDT Electronically signed by Deyvi [facility] Conversion Electronic Court Recorder Cerner at 07/09/2022 12:13 PM CDT documented in this encounter Plan of Treatment Not on file documented as of this encounter Visit Diagnoses Not on filedocumented in this encounter Care Teams Test Engineer Nuclear Equipment Relationship Specialty Start Date End Date Reina Olmedo, PLUMBER AND TINNER [address] [place] [address] PCP - General Nurse Practitioner 11/14/22 10/01/23 documented as of this encounter
--- OUTSIDE RECORDS SUMMARY | 2024-10-08 09:28 | XMS_ITS | Encounter Summary ---
Author Organization [employer] ([place], [place], [place], [place]) Address [address] [place] [address] Care Team Providers Care Joint Sealer Name Role Phone NellieReina hancock Nilsa TAMEZ Primary Care Provider [phone] [phone] Encounter Details Date Type Department Care Team (Late st Contact Info) Description 07/27/2020 Transcribed Document [facility] [place] Family Medicine [address] [place] [address] ProviderVeronica MD [address] [place] [address] Social History Tobacco Use Types Packs/Day Years Used Date Smoking Tobacco: Never Assessed Comments Unknown Sex and Gender Information Value Date Recorded Sex Assigned at Not on file Legal Sex Female 4:58 PM CDT Gender Identity Not on file Sexual Orientation Not on file documented as of this encounter Miscellaneous Notes * Cerner Conversion Note - Historical ProviderMD - 07/27/2020 1:07 PM CDT Event Note Entered On: 07/27/2020 13:09 EDT Performed On: 07/27/2020 13:07 EDT by LETY WASSERMAN RN Event Note Event Date/Time : 07/27/2020 13:08 EDT Description of Event : Following protocol, TR band removed without diff, dressing applied. Sven well. LETY WASSERMAN, RN - 07/27/2020 13:07 EDT Electronically signed by Deyvi [facility] Conversion Communications Consultant Cerner at 07/09/2022 12:17 PM CDT documented in this encounter Plan of Treatment Not on file documented as of this encounter Visit Diagnoses Not on filedocumented in this encounter Care Teams Joint Sealer Relationship Specialty Start Date End Date Reina, [employer] [address] [place] [address] PCP - General Nurse Practitioner 11/14/22 10/01/23 documented as of this encounter
--- OUTSIDE RECORDS SUMMARY | 2024-10-08 09:28 | XMS_ITS | Encounter Summary ---
Author Organization [email or web address] ([place], [place], [place], [place]) Address [address] [place] [address] Care Team Providers Care Tractor Operator Name Role Phone NellieReina hancock Nilsa TAMEZ Primary Care Provider [phone] Encounter Details Date Type Department Care Team (Late st Contact Info) Description 12/02/2019 Transcribed Document [facility] [place] [address] [place] [address] ProviderVeronica MD [address] [place] [address] Social History Tobacco Use Types Packs/Day Years Used Date Smoking Tobacco: Never Assessed Comments Unknown Sex and Gender Information Value Date Recorded Sex Assigned at Not on file Legal Sex Female 4:58 PM CDT Gender Identity Not on file Sexual Orientation Not on file documented as of this encounter Miscellaneous Notes * Cerner Conversion Note - Veronica ProviderMD - 12/02/2019 4:44 PM CDT [place] [id number] YANE REBOLLEDO :1970 Visit Time:12/02/2019 What to [...] activities are safe for you. ??? Take zznx-quz-oukmksb and prescription medicines only as told by [...] Reviewed: 10/24/2017 Elsevier Patient Education ?? 2020 [email or web address] Myomectomy, Care After This sheet gives [...] these instructions at home: Medicines ??? Take mdry-oyf-iwztqgl and prescription medicines only as told by [...] and water are not available, use hand nude model. ? Change your dressing as told by [...] urine clear or pale yellow. ? Take cvzv-vwh-fsalokn or prescription medicines. ? Eat foods that [...] 07/31/2011 Document Revised: 02/20/2018 Document Reviewed: 04/10/2017 [email or web address] Patient Education ?? 2020 [employer]. Hysteroscopy, Care After This sheet gives you [...] taking prescription pain medicines. Medicines ??? Take honz-zue-yazylkv and prescription medicines only as told by [...] urine clear or pale yellow. ? Take hdzj-atl-wuplmcd or prescription medicines. ? Eat foods that [...] 12/29/2013 Document Revised: 02/20/2018 Document Reviewed: 04/08/2017 [email or web address] Patient Education ?? 2020 [employer]. acetaminophen and oxycodone (a SEET a MIN [...] pain, tiredness, loss of appetite, dark urine, ihsan-colored stools, jaundice (yellowing of the skin or [...] may report side effects to FDA at 9-242-JVE-3001. What other drugs will affect acetaminophen and [...] affect acetaminophen and oxycodone, including prescription and ozuz-jeu-lnsefso medicines, vitamins, and herbal products. Not all [...] to ensure that the information provided by [employer]. ('[employer]') is accurate, up-to-date, and complete, but no guarantee is made to that effect. Drug information contained herein may be time sensitive. [employer] information has been compiled for use by healthcare practitioners and consumers in the [place] and therefore [employer] does not warrant that uses outside of the [place] are appropriate, unless specifically indicated otherwise. [employer]'s drug information does not endorse drugs, diagnose patients or recommend therapy. [employer] drug information is an informational resource designed [...] effective or appropriate for any given patient. [facility] does not assume any responsibility for any aspect of healthcare administered with the aid of information [facility] provides. The information contained herein is not intended to cover all possible uses, directions, precautions, warnings, drug interactions, allergic reactions, or adverse effects. If you have questions about the drugs you are taking, check with your doctor, nurse or pharmacist. Copyright 1255-0363 [facility]. Version: .. Revision Date: 04/14/2019. ibuprofen (EYE bue PROE fen) Advil, Genpril, IBU, Midol IB, Motrin IB, Proprinal, Smart Sense Children's Ibuprofen What is the most important information I should know about ibuprofen? Ibuprofen can increase your risk of fatal heart attack or stroke, especially if you use it laborer marine terminal or take high doses, or if you [...] or stroke, especially if you use it laborer marine terminal or take high doses, or if you [...] may report side effects to FDA at 1-786-JUD-5453. What other drugs will affect ibuprofen? Ask [...] may interact with ibuprofen, including prescription and tsbd-vtx-lypvqmd medicines, vitamins, and herbal products. Not all [...] to ensure that the information provided by [employer]') is accurate, up-to-date, and complete, but no guarantee is made to that effect. Drug information contained herein may be time sensitive. [employer] information has been compiled for use by healthcare practitioners and consumers in the [place] and therefore [employer] does not warrant that uses outside of the [place] are appropriate, unless specifically indicated otherwise. [employer] drug information does not endorse drugs, diagnose patients or recommend therapy. [employer] drug information is an informational resource designed [...] effective or appropriate for any given patient. [employer] does not assume any responsibility for any aspect of healthcare administered with the aid of information [employer] provides. The information contained herein is not intended to cover all possible uses, directions, precautions, warnings, drug interactions, allergic reactions, or adverse effects. If you have questions about the drugs you are taking, check with your doctor, nurse or pharmacist. Copyright 1463-5955 [employer]. Version: 21.. Revision Date: 04/05/2019. Emergency Awareness [...] Assistance with quitting is available by contacting 0-062-DKOI-NOW. This is a free resource providing counseling, [...] 12:50 PM HCG Urine Qualitative: Negative Patient Name:AMAURYYANE I have received this information and was given the opportunity to ask questions. Patient/Special Education Aide Name: Patient/Special Education Aide Signature: Relationship to Patient: Clinician/Hospital Special Education Aide Signature: Date: Electronically signed by Interface, [facility] Conversion Broadcast Director Operations Cerner at 07/09/2022 12:31 PM CDT documented in this encounter Plan of Treatment Not on file documented as of this encounter Visit Diagnoses Not on filedocumented in this encounter Care Teams Tractor Operator Relationship Specialty Start Date End Date , Reina Ash, DIRECT CHILL CASTER [address] [place] [address] PCP - General Nurse Practitioner 11/14/22 10/01/23 documented as of this encounter
--- OUTSIDE RECORDS SUMMARY | 2024-10-08 09:28 | XMS_ITS | Encounter Summary ---
Author Organization [employer] ([place], [place], [place], [place]) Address [address] [place] [address] Care Team Providers Care Director Orange Name Role Phone Nelliekarissa Reina Nilsa TAMEZ Primary Care Provider [phone] Encounter Details Date Type Department Care Team (Late st Contact Info) Description 07/27/2020 Transcribed Document [facility] [place] [address] [place] [address] ProviderVeronica MD [address] [place] [address] Social History Tobacco Use Types Packs/Day Years Used Date Smoking Tobacco: Never Assessed Comments Unknown Sex and Gender Information Value Date Recorded Sex Assigned at Not on file Legal Sex Female 4:58 PM CDT Gender Identity Not on file Sexual Orientation Not on file documented as of this encounter Miscellaneous Notes * Cerner Conversion Note - Historical ProviderMD - 07/27/2020 8:19 AM CDT Pre Procedure Adult Entered On: 07/27/2020 8:30 EDT Performed On: 07/27/2020 8:19 EDT by LETY WASSERMAN RN Height and Weight, Clinical Dosing Height Source : Stated Height Entry Format : [place] Height, Feet : 5 ft(Converted to: 152 cm, 60 Inch) Height, Inches : 0 Inch(Converted to: 0 ft 0 Inch, 0.00 cm) Clinical Height : 152.4 cm Weight Source : Standing scale Weight Entry Format : [place] Clinical Dosing Weight : 127.73 kg Weight, Pounds : 281 lb Body Surface Area (BSA) : 2.16 m2 Body Mass Index : 55 kg/m2 (>HHI) [place] Body Weight : 45 kg LETY WASSERMAN RN - 07/27/2020 8:19 EDT Health Histories Smoking Status : Former smoker, quit more than 30 days ago Smokeless Tobacco Status : Never LETY WASSERMAN RN - 07/27/2020 8:19 EDT Social History (As Of: 07/27/2020 08:30:16 EDT) Tobacco: Use in Last 12 Months: [...] days : No Infectious Disease History : Chicken pox/Shingles Tuberculosis Symptoms : None LETY WASSERMAN RN - 07/27/2020 8:19 EDT COVID19 PreProcedure Screening Is this an Emergent or Add on Procedure? : No Date PreProcedure COVID-19 test known? : Yes Date of PreProcedure COVID-19 : 07/25/2020 EDT Has patient been isolated since the test : No Exposed to COVID19 symptoms since test? : No LETY WASSERMAN RN - 07/27/2020 8:19 EDT Anesthesia/Transfusion History Family History of Anesthesia Reaction : Prior transfusion without reaction Transfusion History : Prior anesthesia without reaction Family History of Anesthesia Reaction : None LETY WASSERMAN RN - 07/27/2020 8:19 EDT Functional Assessment Living Situation : Home Patient Lives With : Spouse Persons Assisting Patient at Home : Spouse Current Daily Living Assistance : None Sensory Deficits : None Mobility Assistance Prior to Admission : Independent LEWIS Hx Falls Immediate/Within 3 Months : No Current Home Treatments : None LETY WASSERMAN RN - 07/27/2020 8:19 EDT [place] Suicide Severity Rating Scale (C-SSRS) CSSRS Past Month Wish to be : No CSSRS Past Month Suicidal Thoughts : No CSSRS Lifetime Suicide Behavior : No Suicide Severity Rating Score : 0 Suicide Severity Rating : No Additional Care Required at this time LETY WASSERMAN RN - 07/27/2020 8:19 EDT Psychosocial History Does Someone Depend on You for Care? : No Do You Have a History of the Following? : Patient denies history Currently in Unsafe Situation : No Restraining Order Against Another Person : No Do You Have a Support System? : Yes Hospital/DC Financial Concerns : No Stressors Affecting Hospitalization/DC : No LETY WASSERMAN RN - 07/27/2020 8:19 EDT Advance Directive Patient has Advance Directive *Q : No, patient refuses Advance Directive information LETY WASSERMAN RN - 07/27/2020 8:19 EDT Teaching/Learning Assessment Barriers To Learning : None evident Individuals Taught : Patient, Family member Readiness to Learn : Cooperative Baseline Knowledge of Topic : Good Readiness to Learn : Demonstration, Explanation Learning Style Preferences Patient : None Learning Style Preferences Family : None LETY WASSERMAN RN - 07/27/2020 8:19 EDT Education Topics, Periop Preadmission Perioperative Education Grid Arrival Time/Place : Verbalizes understanding, Returns demonstration Central Lines : Verbalizes understanding, Returns demonstration CHG Preoperative Bathing/Cloths : Verbalizes understanding, Returns demonstration Falls : Verbalizes understanding, Returns demonstration Infection Control : Verbalizes understanding, Returns demonstration IV's : Verbalizes understanding, Returns demonstration NPO Status/Directions : Verbalizes understanding, Returns demonstration Pain Management : Verbalizes understanding, Returns demonstration Postoperative Care Preparations : Verbalizes understanding, Returns demonstration Preprocedure Preparations : Verbalizes understanding, Returns demonstration Preprocedure Tests/Labs : Verbalizes understanding, Returns demonstration Responsible Adult : Verbalizes understanding, Returns demonstration Take/Hold Medications Pre-Procedure : Verbalizes understanding, Returns demonstration LETY WASSERMAN RN - 07/27/2020 8:19 EDT General Info Arrived From : Home Mode of Arrival on Unit : Ambulatory Legal Guardian : Mother Support Person/Patient Kinesiotherapist : Yes Want Family/Rep/Phys Notified of Admit : No Emergency Contact #1 : Meryl Emergency Contact #1 Emergency Contact #1 Relationship : mother Emergency Contact #2 : n/a Emergency Contact #2 Phone Number : n/a Emergency Contact #2 Relationship : n/a Chief Complaint : L/C Information Obtained From : Patient Primary Language : Yi Preferred Communication Mode : Verbal Communication Barrier : None Buttoner Needed : No LETY WASSERMAN RN - 07/27/2020 8:19 EDT Vital Measurements Temperature Source : Temporal artery scanning Temperature Mode : Fahrenheit Temperature, Fahrenheit : 97.1 Deg F Clinical Temperature, C : 36.2 Deg C Pulse Method : Non-Invasive BP Device Peripheral Pulse Rate : 82 bpm Respiratory Rate : 18 Breaths/Min Blood Pressure Location : Arm, right lower Blood Pressure Source : Non-Invasive BP Device Blood Pressure Position : Sitting Systolic Blood Pressure : 146 mmHg (HI) Diastolic Blood Pressure : 84 mmHg Oxygen Saturation : 95 % Oxygen Therapy Mode : Room air LETY WASSERMAN RN - 07/27/2020 8:19 EDT Sleep Apnea Risk Assmt BiPAP/CPAP Ordered for Home Use : Yes Hx of Obstructive Sleep Apnea Diagnosis : Yes BiPAP/CPAP Used at Home : No Reason BiPAP/CPAP Not Used at Home : insurance would not cover Age over 50 Years Old : No Gender Male : No LETY WASSERMAN RN - 07/27/2020 8:19 EDT Jey Scale Jey Sensory Perception : No impairment Jey Moisture : Moist Jey Activity : Walks occasionally Jey Mobility : No limitation Jey Nutrition : Probably inadequate Jey Friction and Shear : No apparent problem Jey Score : 18 LETY WASSERMAN RN - 07/27/2020 8:19 EDT Pain Assessment Pain Assessment : Initial assessment Pain Scale Used : 0-10 Scale LETY WASSERMAN RN - 07/27/2020 8:19 EDT Fall Risk Scales ABCs Fall Injury Risk Identification : None Injury Moderate to High Risk Interventions : Transport methods appropriate to patient, Visual cues in place LEWIS Hx Falls Immediate/Within 3 Months : No Lewis Secondary Diagnosis : No LEWIS Use of Ambulatory Aid : None LEWIS IV Therapy or IV Access : Yes Lewis Gait/Transferring : Normal, bedrest, immobile Lewis Mental Status : Oriented to own ability Lewis Fall Risk Score : 20 LEWIS Fall Scale Risk Level : 0-24 Low Risk [place] Fall Interventions : Adequate lighting, Assistive devices within reach, Bed in low position, Call device within reach, Fall prevention handout/education per facility policy, Frequent orientation to call device, Frequent orientation to surroundings, Hourly comfort/safety rounds, Non-slip footwear, Personal items within reach, Reinforced to call for assistance before getting out of bed, Room free of clutter/spills, Upper side-rails up, Wheels locked, Wires/Cords secured Fall Risk Scale Calc Temp : 0 LETY WASSERMAN RN - 07/27/2020 8:19 EDT Valuables and Belongings Valuables and Belongings : Clothing Clothing : Common streetwear Clothing Disposition : Bedside Belongings Disposition Comment : Valuables with mother-refuses safe LETY WASSERMAN RN - 07/27/2020 8:19 EDT Pain Scale Intensity : 0 LETY WASSERMAN RN - 07/27/2020 8:19 EDT Image 4 - Images currently included in the form version of this document have not been included in the text rendition version of the form. Electronically signed by Tayler Carnes Conversion Air Launch Weapons Technician Cerner at 07/09/2022 12:15 PM CDT documented in this encounter Plan of Treatment Not on file documented as of this encounter Visit Diagnoses Not on filedocumented in this encounter Care Teams Director Orange Relationship Specialty Start Date End Date Reina Olmedo, SUPERVISOR DIALS [address] [place] [address] PCP - General Nurse Practitioner 11/14/22 10/01/23 documented as of this encounter
--- OUTSIDE RECORDS SUMMARY | 2024-10-08 09:28 | XMS_ITS | Encounter Summary ---
Author Organization [employer] ([place], [place], [place], [place]) Address [address] [place] [address] Care Team Providers Care Aircraft Systems Repairer Name Role Phone Reina Olmedo HOLTER SCANNING TECHNICIAN Primary Care Provider [phone] Reason for Visit * Reason Onset Date Comments Medication Refill 11/30/2022 Encounter Details Date Type Department Care Team (Late st Contact Info) Description 11/30/2022 Refill [facility] Primary Care [address] [address] Reina Olmedo, HOLTER SCANNING TECHNICIAN [address] [place] [address] Social History Tobacco Use Types [...] on filedocumented in this encounter Care Teams Aircraft Systems Repairer Relationship Specialty Start Date End Date Reina Olmedo HOLTER SCANNING TECHNICIAN [address] [place] [address] PCP - General Nurse Practitioner 11/14/22 10/01/23 documented as of this encounter
--- OUTSIDE RECORDS SUMMARY | 2024-10-08 09:28 | XMS_ITS | Encounter Summary ---
Author Organization [employer] ([place], [place], [place], [place]) Address [address] [place] [address] Care Team Providers Care Jacket Changer Name Role Phone Reina Olmedo DASHAWN Primary Care Provider [phone] Encounter Details Date Type Department Care Team (Late st Contact Info) Description 07/27/2020 Transcribed Document [facility] [place] [address] [place] [address] ProviderVeronica MD [address] [place] [address] Social History Tobacco Use Types Packs/Day Years Used Date Smoking Tobacco: Never Assessed Comments Unknown Sex and Gender Information Value Date Recorded Sex Assigned at Not on file Legal Sex Female 4:58 PM CDT Gender Identity Not on file Sexual Orientation Not on file documented as of this encounter Miscellaneous Notes * Cerner Conversion Note - Historical ProviderMD - 07/27/2020 8:43 AM CDT Event Note Entered On: 07/27/2020 8:43 EDT Performed On: 07/27/2020 8:43 EDT by LETY WASSERMAN RN Event Note Event Date/Time : 07/27/2020 8:43 EDT Description of Event : Dr. Hung here and notified of creatinine 1.7. LETY WASSERMAN, RN - 07/27/2020 8:43 EDT Electronically signed by Deyvi [facility] Conversion Bench Worker Cerner at 07/09/2022 12:13 PM CDT documented in this encounter Plan of Treatment Not on file documented as of this encounter Visit Diagnoses Not on filedocumented in this encounter Care Teams Jacket Changer Relationship Specialty Start Date End Date Reina, SALES AGENT FINANCIAL REPORT SERVICE [address] [place] [address] PCP - General Nurse Practitioner 11/14/22 10/01/23 documented as of this encounter
--- OUTSIDE RECORDS SUMMARY | 2024-10-08 09:28 | XMS_ITS | Encounter Summary ---
Author Organization [employer] ([place], [place], [place], [place]) Address [address] [place] [address] Care Team Providers Care Financial Sales Representative Name Role Phone Nelliekarissa Reina Nilsa TAMEZ Primary Care Provider [phone] [phone] Encounter Details Date Type Department Care Team (Late st Contact Info) Description 07/27/2020 Transcribed Document [facility] [place] Medicine [address] [place] [address] ProviderVeronica MD [address] [place] [address] Social History Tobacco Use Types Packs/Day Years Used Date Smoking Tobacco: Never Assessed Comments Unknown Sex and Gender Information Value Date Recorded Sex Assigned at Not on file Legal Sex Female 4:58 PM CDT Gender Identity Not on file Sexual Orientation Not on file documented as of this encounter Miscellaneous Notes * Cerner Conversion Note - Historical ProviderMD - 07/27/2020 12:36 PM CDT Patient Education Materials Follows: It???s Cold and Flu Season ??? How [...] to thoroughly wash your hands, use hand hatchery helper. While handwashing is best, hand hatchery helper helps to reduce the spread of germs when you are out and about. Have hand hatchery helper in several locations so you can always [...] keep people from also getting sick. Don???t Edison It! Sneezing this time of year is [...] a PCP near you, please visit [employer] [email or web address]. May 28, 2019 Carbohydrate Counting for Diabetes [...] different for every person. A diet and laser specialist (registered dietitian) can help you make [...] of carbohydrate per serving. To use the ?Nutrition Facts : ??? Decide how many servings [...] g of carbohydrates: ? hamburger bun or ? Romansh muffin. ? oz (15 mL) syrup. ? [...] 4 oz (113 g) mashed potatoes or ? of a large baked potato. ??? 4 oz (113 g) canned or frozen fruit. ??? 4 oz (120 mL) fruit juice. ??? 4?6 crackers. ??? 6 chicken nuggets. ??? 6 [...] foods that contain carbohydrates: ??? Rice. ??? Runnells. ??? Milk. ??? Strawberries. 2. Calculate how [...] manage your diabetes. ??? A diet and laser specialist (registered dietitian) can help you make a meal plan and calculate how many carbohydrates you should have at each meal and snack. This information is not intended to replace advice given to you by your health care provider. Make sure you discuss any questions you have with your health care provider. Document Revised: 10/02/2017 Document Reviewed: 08/21/2016 [employer] Patient Education ? 2020 [employer] Diabetes Mellitus and Nutrition, Adult When [...] that you work with a diet and laser specialist (dietitian) to make a meal plan [...] of beer, 5 oz of wine, or 1? oz of hard liquor. ??? Do not [...] can eat at each meal. ??? Eat 4?6 ounces (oz) of lean protein each day, such as lean meat, chicken, fish, eggs, or tofu. One oz of lean protein is equal to: ? 1 oz of meat, chicken, or fish. ? 1 egg. ? ? cup of tofu. ??? Eat some foods [...] provider. ??? Work with a counselor or clinical educator to identify strategies to manage stress and any emotional and social challenges. Questions to ask a health care provider ??? Do I need to meet with a clinical educator? Do I need to meet with a dietitian? What number can I call if I have questions? When are the best times to check my blood glucose? Where to find more information: ??? [place] Diabetes Association: diabetes.org ??? Academy of Nutrition and Dietetics: www.eatright.org ??? National [place] of Diabetes and Digestive and Kidney Diseases (NIH): www.niddk.nih.gov Summary ??? A healthy meal plan will help you control your blood glucose and maintain a healthy lifestyle. ??? Working with a diet and laser specialist (dietitian) can help you make a [...] provider. Document Revised: 02/20/2018 Document Reviewed: 04/14/2017 [employer] Patient Education ? 2020 [employer] Moderate Conscious Sedation, Adult, Care After [...] you are awake and alert. ??? Take jjdz-zjl-ldaomzv and prescription medicines only as told by [...] provider. Document Revised: 02/20/2018 Document Reviewed: 06/29/2016 [employer] Patient Education ? 2020 [employer] Radial Site Care This sheet gives you [...] these instructions at home: Medicines ??? Take rmnx-whh-mcktrri and prescription medicines only as told by your health care provider. Insertion site care ??? Follow instructions from your health care provider about how to take care of your insertion site. Make sure you: ? Wash your hands with soap and water before you change your bandage (dressing). If soap and water are not available, use hand hatchery helper. ? Change your dressing as told by [...] care provider approves. ??? You may shower 24?48 hours after the procedure, or as directed [...] provider. Document Revised: 04/15/2018 Document Reviewed: 04/15/2018 [employer] Patient Education ? 2020 [employer] Transradial Angiogram A transradial angiogram is [...] including vitamins, herbs, eye drops, creams, and fffh-bjx-bsbmmhx medicines. ??? Any problems you or family [...] tells you to take them. ??? Taking eohq-pfx-gfrkyok medicines, vitamins, herbs, and supplements. Exams and [...] provider. Document Revised: 02/01/2019 Document Reviewed: 02/01/2019 [employer] Patient Education ? 2019 [employer]. Radiology Coronary Angiogram A coronary angiogram is an [...] including vitamins, herbs, eye drops, creams, and olhr-iut-fszpayf medicines. ??? Any problems you or family [...] Up to 2 hours before the procedure ? you may continue to drink clear liquids, such as water, clear fruit juice, black coffee, and plain tea. Eating and drinking restrictions Follow instructions from your health care provider about eating and drinking, which may include: ??? 8 hours before the procedure ? stop eating heavy meals or foods, such as meat, fried foods, or fatty foods. ??? 6 hours before the procedure ? stop eating light meals or foods, such as toast or cereal. ??? 6 hours before the procedure ? stop drinking milk or drinks that contain milk. ??? 2 hours before the procedure ? stop drinking clear liquids. Medicines Ask your [...] do not normally take it. ??? Taking ytkg-sli-puikdot medicines, vitamins, herbs, and supplements. General instructions [...] provider. Document Revised: 09/30/2019 Document Reviewed: 09/30/2019 Elsevier Patient Education ? 2020 [employer] documented in this encounter Plan of Treatment Not on file documented as of this encounter Visit Diagnoses Not on filedocumented in this encounter Care Teams Financial Sales Representative Relationship Specialty Start Date End Date Reina Olmedo, DRAFTER ELECTROMECHANICAL [address] [place] [address] PCP - General Nurse Practitioner 11/14/22 10/01/23 documented as of this encounter
--- OUTSIDE RECORDS SUMMARY | 2024-10-08 09:28 | XMS_ITS | Encounter Summary ---
Author Organization [employer] ([place], [place], [place], [place]) Address [address] [place] [address] Care Team Providers Care Reports Developer Name Role Phone Reina Olmedo APRN Primary Care Provider [phone] Encounter Details Date Type Department Care Team (Late st Contact Info) Description 12/02/2019 Transcribed Document [facility] [place] Family Medicine [address] [place] [address] ProviderVeronica MD [address] [place] [address] Social History Tobacco Use [...] ProviderMD - 12/02/2019 3:38 PM CDT [facility] OR PACU Summary Primary Physician: YOU HAWTHORNE MD-OBG Finalized Date/Time: 12/02/19 17:09:46 Pt. Name: YANE REBOLLEDO/Sex: 1970 Female Med Rec #: [id number] Physician: YOU HAWTHORNE MD-OBG Financial #: [id number] Pt. Type: O Room/Bed: Admit/Disch: 12/02/19 11:24:00 - Institution: [facility] OR PACU Case Times Entry 1 In PACU I 12/02/19 16:13:00 Ready for PACU 12/02/19 17:05:00 Discharge Discharge from PACU 12/02/19 17:05:00 I Last Modified By: Helen Francis RN 12/02/19 17:09:16 [facility] OR PACU Case Times Audit 12/02/19 17:09:16 Tree Pruner: SXPOWERS Modifier: SXPOWERS <+> 1 Ready for PACU Discharge <+> 1 Discharge from PACU I Finalized By: Helen Francis, RN Document Signatures Signed By: Helen Francis RN 12/02/19 17:09 documented in this encounter Plan of Treatment Not on file documented as of this encounter Visit Diagnoses Not on filedocumented in this encounter Care Teams Reports Developer Relationship Specialty Start Date End Date Reina Olmedo, USER EXPERIENCE DEVELOPER [address] [place] [address] PCP - General Nurse Practitioner 11/14/22 10/01/23 documented as of this encounter
--- OUTSIDE RECORDS SUMMARY | 2024-10-08 09:28 | XMS_ITS | Encounter Summary ---
Author Organization [employer] ([place], [place], [place], [place]) Address [address] [place] [address] Care Team Providers Care Renewals Specialist Name Role Phone Reina Olmedo APRN Primary Care Provider [phone] Encounter Details Date Type Department Care Team (Late st Contact Info) Description 12/02/2019 Transcribed Document [facility] [place] [address] [place] [address] ProviderVeronica MD [address] [place] [address] Social History Tobacco Use Types [...] 12/02/2019 3:38 PM CDT [facility] OR IntraOp Summary Primary Physician: YOU HAWTHORNE MD-OBG Finalized Date/Time: 12/02/19 16:14:52 Pt. Name: ANGÉLICA REBOLLEDO/Sex: 1970 Female Med Rec #: [id number] Physician: YOU HAWTHORNE MD-OBG Financial #: [id number] Pt. Type: O Room/Bed: Admit/Disch: 12/02/19 11:24:00 - Institution: [facility] Case Attendance Entry 1 Entry 2 Entry 3 Case Attendee YOU HAWTHORNE Holliday, Stewart R, RN ANTONIO CABRERA, LIZZ BECERRA-OBG Role Performed Surgeon/Proceduralist, M48/M60 Tank Driver, First FITTER MACHINIST/Nurse Leather Case Finisher First Time In 12/02/19 15:17:00 12/02/19 15:17:00 12/02/19 15:17:00 Time Out 12/02/19 16:14:00 12/02/19 16:14:00 12/02/19 15:46:00 Procedure Myomectomy Hysteroscopic Myomectomy Hysteroscopic Myomectomy Hysteroscopic Other Attendee Superficial Wound Closed By: Last Modified By: Foster Avilez, RN Foster Avilez, RN Foster Avilez, JASSON 12/02/19 16:14:35 12/02/19 16:14:35 12/02/19 16:14:35 Entry 4 Entry 5 Case Attendee ADRIÁN GOMEZ ST BROWNING, JANICE R, HARBOR TUG CAPTAIN-ANS Role Performed Scrub, First FITTER MACHINIST/Nurse Leather Case Finisher Time In 12/02/19 15:17:00 12/02/19 15:46:00 Time Out 12/02/19 16:14:00 12/02/19 16:14:00 Procedure Myomectomy Hysteroscopic Myomectomy Hysteroscopic Other Attendee Superficial Wound Closed By: Last Modified By: Foster Avilez RN Holliday, Stewart R, JASSON 12/02/19 16:14:35 12/02/19 16:14:35 E IntraOp Case Attendance Audit 12/02/19 16:14:35 Lead Nuclear Medicine Technologist: JERONIMO Modifier: JERONIMO 1 <+> Time Out 1 <*> Procedure Myomectomy Hysteroscopic 2 <+> Time Out 2 <*> Procedure Myomectomy Hysteroscopic 3 <*> Procedure Myomectomy Hysteroscopic 4 <+> Time Out 4 <*> Procedure Myomectomy Hysteroscopic 5 <+> Time Out 5 <*> Procedure Myomectomy Hysteroscopic 12/02/19 15:49:20 Lead Nuclear Medicine Technologist: JERONIMO Modifier: STEFANYR 1 <+> Time In 1 <*> Procedure Myomectomy Hysteroscopic 2 <+> Time In 2 <*> Procedure Myomectomy Hysteroscopic 3 <+> Time In 3 <+> Time Out 3 <*> Procedure Myomectomy Hysteroscopic 4 <+> Time In 4 <*> Procedure Myomectomy Hysteroscopic <+> 5 Case Attendee <+> 5 Role Performed <+> 5 Time In <+> 5 Procedure 12/02/19 15:11:56 Lead Nuclear Medicine Technologist: WALTERIDSR Modifier: HOLLIDSR 3 <+> Case Attendee 3 <*> Procedure Myomectomy Hysteroscopic [facility] Case Times Entry 1 Patient In Room Time 12/02/19 15:17:00 Out Room Time 12/02/19 16:14:00 Anesthesia Start Time 12/02/19 15:17:00 Stop Time 12/02/19 16:14:00 Anesthesia Ready 12/02/19 15:17:00 Surgery / Procedure Times Start Time 12/02/19 15:38:00 Stop Time 12/02/19 16:04:00 Last Modified By: Foster Avilez RN 12/02/19 16:14:34 [facility] Case Times Audit 12/02/19 16:14:34 Lead Nuclear Medicine Technologist: WALTERIDSR Modifier: HOLLIDSR <+> 1 Out Room Time <+> 1 Stop Time 12/02/19 16:04:01 Lead Nuclear Medicine Technologist: WALTERIDSR Modifier: HOLLIDSR <+> 1 Stop Time 12/02/19 15:39:00 Lead Nuclear Medicine Technologist: WALTERIDSR Modifier: HOLLIDSR <+> 1 Start Time [facility] Counts Verification Entry 1 Procedure Myomectomy Hysteroscopic Count Info Count Type Sponge Count Results Correct, surgeon notified Counts Performed By Count Performed By ADRIÁN GOMEZ ST (Scrub) Count Performed By Foster Avilez, RN (RN) Last Modified By: Foster Avilez RN 12/02/19 15:11:47 [facility] Counts Final Entry 1 Procedure Myomectomy Hysteroscopic Final Count Info Count Type Sponge Counts Verification Skin Closure/end of Sequence procedure Count Results Correct, surgeon notified Counts Performed By Count Performed By ADRIÁN GOMEZ ST (Scrub) Count Performed By Foster Avilez RN (RN) Last Modified By: Foster Avilez RN 12/02/19 15:54:01 [facility] Cultures and Spec Summary Entry 1 Cultrures and Specimens Specimen Ordered: Yes Test(s) Routine/Path-Lab Requested/Final Disposition Last Modified By: Foster Avilez RN 12/02/19 15:28:25 [facility] Departure from OR Entry 1 Integumentary Assessment Transfer/Handoff Transfer to PACU Phase I Handoff Method Bedside/Face to face Post-op Transport Stretcher/Gurney Via Patient Transport Foster Avilez RN Accompanied by Last Modified By: Foster Avilez RN 12/02/19 15:11:36 [facility] Departure from OR Audit 12/02/19 15:11:36 Lead Nuclear Medicine Technologist: JERONIMO Modifier: JERONIMO <+> 1 Transfer to <+> 1 Handoff Method [facility] Fire Risk Assessment Entry 1 Fire Info Surgical Site or 0- No Incision Above the Xyphoid Open O2 Source 0- No (Mask or Cannula) Available Ignition 0- No (ESU, Laser, Light Source) Fire Risk 0 Assessment Score Fire Score Fire Risk Yes Assessment Complete Fire Risk Foster Avilez group worker Verified By Fire Risk 12/02/19 15:09:00 Assessment Verified Date/Time Fire Risk Last Modified By: Foster Avilez RN 12/02/19 15:09:44 [facility] General Case Biological Technical Officer 1 Case Information OR OR 07 [facility] Case Level 1 Room Verified Yes Wound Class II - Clean-Contaminated Specialty SN Gynecology Anesthesia Type General ASA Class 3 Diagnosis Preop Diagnosis AUB Postop Diagnosis refer to MD notes Last Modified By: Foster Avilez RN 12/02/19 15:28:51 [facility] General Case Data Audit 12/02/19 15:28:51 Lead Nuclear Medicine Technologist: JERONIMO Modifier: WALTERIDSR <+> 1 Room Verified 12/02/19 15:28:47 Lead Nuclear Medicine Technologist: JERONIMO Modifier: WALTERIDSR <+> 1 ASA Class <+> 1 Anesthesia Type <+> 1 Preop Diagnosis <+> 1 Postop Diagnosis [facility] Intraoperative Assessment Entry 1 Valid History / Yes Physical in Chart Preoperative Yes Checklist Reviewed/Evaluated Allergies Reviewed Yes Patient is Latex No Sensitive Isolation Not applicable Precautions Noted Skin Assessment Yes Verified Present Upon IVs Arrival to OR Last Modified By: Foster Avilez RN 12/02/19 15:09:47 [facility] Intraoperative Equipment Entry 1 Equipment Intraop Monitoring Electrocardiogram Three lead placement (ECG) Electrode Placement Blood Pressure Non-Invasive BP Device Source Blood Pressure Arm, right upper Location Pulse Oximeter Hand, left Probe Site Antiembolic Devices Antiembolic Devices Sequential compression device, knee high Antiembolic Device Bilateral Location Scopes Photo/Video Documentation Last Modified By: Foster Avilez RN 12/02/19 15:10:05 [facility] Medication Admin Entry 1 Medication/Irrigant Monsels 500ml solution - [id number] Dose Administered By YOU HAWTHORNE MD-OBG Procedure Irrigation Last Modified By: Foster Avilez RN 12/02/19 16:03:52 [facility] Patient Positioning Entry 1 Procedure Myomectomy Hysteroscopic Body Position Lithotomy Left Arm Position Secured on padded arm board Right Arm Position Secured on padded arm board Left Leg Position Secured in stirrup Right Leg Position Secured in stirrup Feet Uncrossed Yes Pressure Points Yes Checked Positioning Devices Arm Board, Stirrups/Leg Perales, Sling Positioned By Foster Avilez RN, YOU HAWTHORNE MD-OBG Position Verified Last Modified By: Foster Avilez RN 12/02/19 15:09:40 [facility] Sign In Entry 1 Patient, Site, Yes Procedure Identified Surgical Consent Yes Confirmed Relevant Surgical Yes Documents Available Surgical Site N/A Marked by person performing procedure Anesthesia Machine Yes Check Completed Medication Checks Yes Completed Airway Difficult No Airway/Aspiration Risk Difficult Yes Airway/Aspiration Intervention Equipment Available Blood Loss Risk No Blood Loss No Intervention Equipment Prepared and Ready Hypothermia Risk Yes Warming Measures Yes Taken Last Modified By: Foster Avilez RN 12/02/19 15:09:37 [facility] Sign Out Entry 1 RN Confirmation Surgical Yes Procedure(s) Identified Instrument, Sponge Yes and Sharps Counts Correct/Documented Equipment Problems N/A Documented Specimen Labeled Yes Correctly Urinary Catheter N/A Documented in IView Ness Patient Yes Recovery Concerns Reviewed with Anesthesia Provider, Surgeon and RN Ness Patient Yes Management Concerns Reviewed with Anesthesia Provider, Surgeon and RN Safety Checklist Yes Elements Complete? RN Sign Out Foster Avilez, JASSON Signature RN Sign Out 12/02/19 16:14:00 Signature Date/Time Plan of Care Outcome - [...] objects Last Modified By: Foster Avilez RN 12/02/19 16:14:49 [facility] Op Sign Out Audit 12/02/19 16:14:49 Lead Nuclear Medicine Technologist: STEFANYR Modifier: HOLLIDSR <+> 1 RN Sign Out Signature Date/Time <+> 1 Urinary Catheter Documented in IView [facility] Skin Prep Entry 1 Procedure Myomectomy Hysteroscopic Prep Area perinium Intraop Prep Prep Agents Betadine scrub, Betadine solution Prep by Foster Avilez RN Hair Removal Last Modified By: Foster Avilez RN 12/02/19 15:29:27 [facility] Surgical Procedures Entry 1 Procedure Myomectomy Hysteroscopic Additional DIAGNOSTIC HYSTEROSCOPY Procedure WITH D AND C MYOSURE Description Primary Procedure Yes Primary Surgeon YOU HAWTHORNE MD-OBG Start 12/02/19 15:38:00 Stop 12/02/19 16:04:00 Anesthesia Type General Specialty SN Gynecology Wound Class II - Clean-Contaminated Last Modified By: Foster Avilez RN 12/02/19 16:04:02 [facility] Surgical Procedures Audit 12/02/19 16:04:02 Lead Nuclear Medicine Technologist: JERONIMO Modifier: WALTERIDSR <+> 1 Stop [facility] Time Out Entry 1 Procedure to be Myomectomy Hysteroscopic Performed Time Out Time Out Pause Time 12/02/19 15:37:00 All activity Yes suspended (unless life threatening [...] Provider None expected Nursing Assures Sterility of instruments Essential Imaging Yes Labeled and Displayed Last Modified By: Foster Avilez, JASSON 12/02/19 15:43:44 Case Comments <None> Finalized By: Foster Avilez, RN Document Signatures Signed By: Foster Avilez RN 12/02/19 16:14 Electronically signed by Deyvi [facility] Conversion Agricultural Engineering Technologist Cerner at 07/09/2022 12:39 PM CDT documented in this encounter Plan of Treatment Not on file documented as of this encounter Visit Diagnoses Not on filedocumented in this encounter Care Teams Renewals Specialist Relationship Specialty Start Date End Date Reina Olmedo, HARBOR TUG CAPTAIN [address] [place] [address] PCP - General Nurse Practitioner 11/14/22 10/01/23 documented as of this encounter
--- OUTSIDE RECORDS SUMMARY | 2024-10-08 09:29 | XMS_ITS | Encounter Summary ---
Author Organization [employer] ([place], [place], [place], [place]) Address [address] [place] [address] Care Team Providers Care Oracle Sql Developer Name Role Phone Reina Olmedo APRN Primary Care Provider [phone] Encounter Details Date Type Department Care Team (Late st Contact Info) Description 03/01/2022 Telephone [facility] Primary Care - [id number] [place] [address] Reina Olmedo APRN [address] [place] [address] Social History Tobacco Use Types Packs/Day Years Used Date Smoking Tobacco: Former Smokeless Tobacco: Never Comments Unknown Sex and Gender Information Value Date Recorded Sex Assigned at Not on file Legal Sex Female 4:58 PM CDT Gender Identity Not on file Sexual Orientation Not on file documented as of this encounter Miscellaneous Notes * Telephone Encounter - Mya Morgan - 03/01/2022 4:11 PM EST Notified confirmed TESTER * Telephone Encounter - Reina Olmedo APRN - 03/01/2022 3:38 PM EST I will change her to vipin for temporary TESTER * Telephone Encounter - Charlotte Mckee - 03/01/2022 12:33 PM EST Patient called in states Christopher is out nationwide- back order Pharmacy does not know when they will have it, was advised that other pharmacies do not have it at this time. Would like to see what Shara TAMEZ Recommends either making changes to her current medication or providing alternative Please advise TESTER documented in this encounter Plan of Treatment Not on file documented as of this encounter Visit Diagnoses Not on filedocumented in this encounter Care Teams Oracle Sql Developer Relationship Specialty Start Date End Date Reina Olmedo APRN [address] [place] [address] PCP - General Nurse Practitioner 11/14/22 10/01/23 documented as of this encounter
--- OUTSIDE RECORDS SUMMARY | 2024-10-08 09:29 | XMS_ITS | Encounter Summary ---
Author Organization [employer] ([place], [place], [place], [place]) Address [address] [place] [address] Care Team Providers Care Container Maker Name Role Phone NellieReina hancock Nilsa TAMEZ Primary Care Provider [phone] Encounter Details Date Type Department Care Team (Late st Contact Info) Description 11/08/2020 Transcribed Document [facility] [place] [facility] [place] [address] ProviderVeronica MD [address] [place] [address] Social History Tobacco Use Types Packs/Day Years Used Date Smoking Tobacco: Never Assessed Comments Unknown Sex and Gender Information Value Date Recorded Sex Assigned at Not on file Legal Sex Female 4:58 PM CDT Gender Identity Not on file Sexual Orientation Not on file documented as of this encounter Miscellaneous Notes * Cerner Conversion Note - Historical ProviderMD - 11/08/2020 11:41 AM CDT DATE OF SERVICE: 11/08/2020 SLEEP FOLLOWUP VISIT HISTORY: Yane is a pleasant 49-year-old female who comes in today for followup. She has a history of hypersomnia and snoring, and wished to undergo sleep apnea evaluation. She has had a remote sleep study, but did not believe the results. She underwent home sleep study with the finding of moderate sleep apnea with an AHI of 21. She was phoned and started on auto CPAP and comes in today for followup. She relates that she is feeling better, that her sleepiness has improved. She has had some trouble still feeling tired in the morning, but has adapted to the device otherwise well. Her download is obtained and interpreted. She is on a ResMed machine. Her AHI is 0.6. Her average use hours are 5 hours and 54 minutes. Her mean pressure is 9.3 and her mask fit appears good. PAST HISTORY: Reviewed without interval change. FAMILY HISTORY: Reviewed without interval change. SOCIAL HISTORY: Reviewed without interval change. REVIEW OF SYSTEMS: Limited review of systems on patient questionnaire is reviewed without other pertinent findings. ALLERGIES: She has no allergies. MEDICATIONS: She currently takes; 1. Metoprolol tartrate. 2. Duloxetine. 3. Losartan and hydrochlorothiazide. 4. . 5. Levothyroxine. 6. Simvastatin. 7. Citalopram. 8. Aspirin. 9. Tradjenta. PHYSICAL EXAMINATION: VITAL SIGNS: Her weight is 280, her body mass index is 54. Respirations 16, oxygen saturation is 98, her blood pressure 117/56, and her heart rate 75. GENERAL: She is well developed, well nourished, in no distress. EYES: Reveal pupils equal, round. Sclerae and corneas clear. ENT: She has mask on. RESPIRATIONS: Normal rate and pattern without labored breathing. EXTREMITIES: No edema. Gait normal. NEURO: She is alert, oriented. Mood and affect are appropriate. SKIN: No clubbing or cyanosis. IMPRESSION: 1. Moderate obstructive sleep apnea with an AHI of 21 on a home sleep study. New data, we reviewed her sleep study in detail. We reviewed the medical and driving risks of sleep apnea and benefits of therapy. She was started on auto CPAP at 6-20, and her download is obtained and interpreted. On her download, her AHI has reduced and her hours of use are good, and her mask fit appears good. She still having some morning sleepiness. Her mean pressure on her download is 8. We discussed increasing her settings, and she would like to do this. 2. Hypertension, controlled with medications and CPAP. PLAN: I have adjusted her prescription settings to 8-20. She is to report if there are any interval problems. Her supplies prescription was renewed. She is scheduled for routine followup in 1 year, and is to come back in the interim if there are any interval problems or if her sleepiness should persist. It is a pleasure to see Ms. Oconnor and continue in her care. /[id number] Melinda Lopez MD PAC/AQ / PAC / MODL /[id number] CC: MD Holly Carlson APRN Electronically signed by [facility] Conversion Morale Officer Cerner at 07/09/2022 12:33 PM CDT documented in this encounter Plan of Treatment Not on file documented as of this encounter Visit Diagnoses Not on filedocumented in this encounter Care Teams Container Maker Relationship Specialty Start Date End Date Reina APRN [address] [place] [address] PCP - General Nurse Practitioner 11/14/22 10/01/23 documented as of this encounter
--- OUTSIDE RECORDS SUMMARY | 2024-10-08 09:29 | XMS_ITS | Referral Summary ---
Author Organization [employer] ([place], [place], [place], [place]) Address [address] [place] [address] Care Team Providers Care Lining Mechanic Name Role Phone Unavailable Primary Care Provider Unavailabl e Allergies Active Allergy Reactions Criticality Noted Date Comments Egg Hives,Itching,Rash High 01/06/2023 Green [place] Hives,Itching,Rash High 01/06/2023 Hazelnut Hives,Itching,Rash High 01/06/2023 House Dust Mite 01/06/2023 Milk Hives,Itching,Rash High 01/06/2023 Mold Hives,Itching,Rash High 01/06/2023 Peanut Hives,Itching,Rash High 01/06/2023 Tomato Hives,Itching,Rash High 01/06/2023 Tree Pollen Hives,Itching,Rash High 01/06/2023 [place] Hives,Itching,Rash High 01/06/2023 Medications aspirin 81 MG [...] mRNA (PF)(LNP-S BIV ALENT) (Perez Cap) 12YR+ (PFIZER)([id number] 12/27/2022 Covid-19 Vaccine MRNA (PF) 1 2yr+ (Pfizer/ZipMatch)([id number]) 01/26/2021,07/25/2020,06/29/2020 Covid-19 Vaccine MRNA(PF,Premixed)12YR+ (Pfizer/ZipMatch)([id number]) 08/09/2021 Hepatitis A Adult 08/07/2018,01/06/2018 Influenza Four-QIV PF 3+YR IM 02/05/2019, 018,03/13/2016 Influenza Four-qiv Pf 12/19/2022, 022,01/26/2021,02/05,01/06/2018 Influenza TIV (IM) 12/19/2022,12/24/2021 Pneumococcal Conjugate Vacci ne (20-Valent) IM 08/09/2021 Pneumococcal Polysaccharide (Pneumovax) 01/21/2014 Tdap 04/21/2023 Social History Tobacco Use Types Packs/Day Years [...] Date Joshua rded Speak language other than Mozambican at home Not on file 04/09/2023 Want [...] 09/01/2023 2:53 PM EDT Plan of Treatment Not on file Procedures Procedure Name Priority Date/Time Associated Diagnosis [...] AM EDT Performed at: 01 - [facility] [address] [id number] Community Service Technician: Clive Martinez PhD, Phone: [phone] Reina Olmedo APRN LAB BLOOD ORDERABLES Becky l Result Performing Organization Address [facility] de Phone Number [facility] * (ABNORMAL) Lipid panel (08/04/2023 2:21 PM EDT) [facility] Cholesterol, Total 153 100 - 199 mg/dL [facility] Triglycerides 236(H) 0 - 149 mg/dL [facility] HDL Cholesterol 46 >39 mg/dL [facility] VLDL Cholesterol Lopez 38 5 - 40 mg/dL [facility] LDL Calculated 69 0 - 99 mg/dL [facility] Blood 08/04/2023 2:21 PM EDT 08/04/2023 Narrative [facility] - 08/05/2023 10:08 AM EDT Performed at: 01 - [facility] [address] [id number] Community Service Technician: Clive Martinez PhD, Phone: [phone] Reina Olmedo APRN LAB BLOOD ORDERABLES Becky l Result Performing Organization Address [facility] Co de Phone Number [facility] * HM MAMMOGRAPHY (11/11/2018) Anatomical Region Laterality Modality Other Historical Provider HEALTH MAINTENANCE Final Result from Last 3 Months or Most Recently Relevant to Health Maintenance Insurance [facility] [place] [address]
--- OUTSIDE RECORDS SUMMARY | 2024-10-08 09:29 | XMS_ITS | Encounter Summary ---
Author Organization [employer] ([place], [place], [place], [place]) Address [address] [place] [address] Care Team Providers Care Wheel Of Fortune Dealer Name Role Phone Nelliekarissa Reina Nilsa TAMEZ Primary Care Provider [phone] Encounter Details Date Type Department Care Team (Late st Contact Info) Description 03/13/[address] [facility] [place] Medicine [address] [place] [address] ProviderVeronica MD [address] [place] [address] Social History Tobacco Use Types Packs/Day Years Used Date Smoking Tobacco: Never Assessed Comments Unknown Sex and Gender Information Value Date Recorded Sex Assigned at Not on file Legal Sex Female 4:58 PM CDT Gender Identity Not on file Sexual Orientation Not on file documented as of this encounter Miscellaneous Notes * Cerner Conversion Note - Historical ProviderMD - 03/13/2021 2:07 PM FIELD DIRECTOR Pre Procedure Adult Entered On: 03/13/2021 14:09 EST Performed On: 03/13/2021 14:07 EST by Vanna Durant Rn Height and Weight, Clinical Dosing Height Source : Stated Height Entry Format : Sac Height, Feet : 5 ft(Converted to: 152 cm, 60 Inch) Height, Inches : 0 Inch(Converted to: 0 ft 0 Inch, 0.00 cm) Clinical Height : 152.4 cm Weight Source : Standing scale Weight Entry Format : Sac Clinical Dosing Weight : 124.64 kg Weight, Pounds : 274.2 lb Body Surface Area (BSA) : 2.14 m2 Body Mass Index : 53.7 kg/m2 (>HHI) [place] Body Weight : 45 kg Vanna Durant Rn - 03/13/2021 14:07 EST Health Histories Smoking Status : Former smoker, quit more than 30 days ago Smokeless Tobacco Status : Never Vanna Durant Rn - 03/13/2021 14:07 EST Social History (As Of: 03/13/2021 14:09:55 EST) Tobacco: Use in Last 12 Months: No. [...] by RENZO MORRELL RN) Infectious Disease History Does patient have symptoms of COVID-19? : No Has the Patient Been Tested for COVID-19 in the last 14 days? : Yes, Patient stated results Negative Where and When was COVID19 testing completed? : 03/13/21 [facility] Does the Patient state known exposure to a COVID-19 positive case in the last 14 days? : No Patient Vaccinated for COVID-19 : Fully vaccinated Vanna Durant Rn - 03/13/2021 14:07 EST Infectious Disease Risk Screening Grid Cough < 2 wks of unknown origin : NO Cough > 2 weeks : NO Blood in Sputum : NO Fever or self-reported Fever : NO Rash of unknown origin : NO Headache : NO Stiff neck : NO Night Sweats : NO Unexplained Weight Loss : NO Diarrhea (3 episode per day) : NO Vanna Durant Rn - 03/13/2021 14:07 EST Physical contact outside [place] in the last 30 days : No Hospitalized in Foreign Country : No Infectious Disease History : None INF Disease TB Screening Calc : 0 INF Disease Recent Travel Calc : 0 Vanna Durant Rn - 03/13/2021 14:07 EST COVID19 PreProcedure Screening Is this an Emergent or Add on Procedure? : No Date PreProcedure COVID-19 test known? : Yes Date of PreProcedure COVID-19 : 03/13/2021 EST Has patient been isolated since the test : Yes Exposed to COVID19 symptoms since test? : No Vanna Durant Rn - 03/13/2021 14:07 EST Anesthesia/Transfusion History Family History of Anesthesia Reaction : Prior transfusion without reaction Transfusion History : Prior anesthesia without reaction Family History of Anesthesia Reaction : None Vanna Durant Rn - 03/13/2021 14:07 EST Functional Assessment Living Situation : Home Current Home Treatments : Blood glucose monitoring, CPAP Vanna Durant Rn - 03/13/2021 14:07 EST [place] Suicide Severity Rating Scale (C-SSRS) CSSRS Past Month Wish to be : No CSSRS Past Month Suicidal Thoughts : No CSSRS Lifetime Suicide Behavior : No Suicide Severity Rating Score : 0 Suicide Severity Rating : No Additional Care Required at this time Vanna Durant Rn - 03/13/2021 14:07 EST Psychosocial History Do You Have a History of the Following? : Patient denies history Currently in Unsafe Situation : No Vanna Durant Rn - 03/13/2021 14:07 EST Advance Directive Patient has Advance Directive *Q : No, patient refuses Advance Directive information Vanna Durant Rn - 03/13/2021 14:07 EST General Info Support Person/Patient Pulp Drier Firer : Yes Want Family/Rep/Phys Notified of Admit : No Emergency Contact #1 : Meryl Emergency Contact #1 Emergency Contact #1 Relationship : mother Emergency Contact #2 : . Emergency Contact #2 Phone Number : . Emergency Contact #2 Relationship : . Primary Language : Kazakh Preferred Communication Mode : Verbal Communication Barrier : None Head Gauge Unit Operator Needed : No Vanna Durant Rn - 03/13/2021 14:07 EST Sleep Apnea Risk Assmt BiPAP/CPAP Ordered for Home Use : Yes Hx of Obstructive Sleep Apnea Diagnosis : Yes BiPAP/CPAP Used at Home : Yes Age over 50 Years Old : No Gender Male : No Vanna Durant Rn - 03/13/2021 14:07 EST Jey Scale Jey Sensory Perception : No impairment Jey Moisture : Rarely moist Jey Activity : Walks frequently Jey Mobility : No limitation Jey Nutrition : Excellent Jey Friction and Shear : No apparent problem Jey Score : 23 Vanna Durant Rn - 03/13/2021 14:07 EST Fall Risk Scales ABCs Fall Injury Risk [...] Scale Risk Level : 0-24 Low Risk [place] Fall Interventions : Adequate lighting, Assistive devices within reach, Bed in low position, Call device within reach Vanna Durant Rn - 03/13/2021 14:07 EST Valuables and Belongings Valuables and Belongings : Clothing Clothing : Common streetwear Clothing Disposition : Bedside Vanna Durant Rn - 03/13/2021 14:07 EST Electronically signed by Tayler Carnes Conversion Group Reservations Coordinator Cerner at 07/09/2022 12:14 PM CDT documented in this encounter Plan of Treatment Not on file documented as of this encounter Visit Diagnoses Not on filedocumented in this encounter Care Teams Wheel Of Fortune Dealer Relationship Specialty Start Date End Date Reina Olmedo, DASHAWN [address] [place] [address] PCP - General Nurse Practitioner 11/14/22 10/01/23 documented as of this encounter
--- OUTSIDE RECORDS SUMMARY | 2024-10-08 09:29 | XMS_ITS | Encounter Summary ---
Author Organization [employer] ([place], [place], [place], [place]) Address [address] [place] [address] Care Team Providers Care Chief Crew Scheduler Name Role Phone Reina Olmedo DASHAWN Primary Care Provider [phone] Encounter Details Date Type Department Care Team (Late st Contact Info) Description 03/13/2021 Transcribed Document [facility] [place] [address] [place] [address] ProviderVeronica MD [address] [place] [address] Social History Tobacco Use Types Packs/Day Years Used Date Smoking Tobacco: Never Assessed Comments Unknown Sex and Gender Information Value Date Recorded Sex Assigned at Not on file Legal Sex Female 4:58 PM CDT Gender Identity Not on file Sexual Orientation Not on file documented as of this encounter Miscellaneous Notes * Cerner Conversion Note - Historical ProviderMD - 03/13/2021 3:30 PM ORACLE [facility] PACU Summary Primary Physician: CARINE AMATO MD-GAE Finalized Date/Time: 03/13/21 16:11:33 Pt. Name: YANE REBOLLEDO/Sex: 1970 Female Med Rec #: [id number] Physician: CARINE AMATO MD-GAE Financial #: [id number] Pt. Type: E Room/Bed: [facility] [place]/ Admit/Disch: 03/13/21 12:24:00 - 03/13/21 15:47:00 Institution: [facility] PACU Case Times Entry 1 In PACU I 03/13/21 15:39:00 Ready for PACU 03/13/21 16:03:00 Discharge Discharge from PACU 03/13/21 16:11:00 I [facility]o PACU Case Times Audit 03/13/21 16:11:32 Accountant Tax: [id number] Modifier: [id number] <+> 1 Ready for PACU Discharge <+> 1 Discharge from PACU I Finalized By: Lolis Ivan RN-PATIENT CARE BEDSIDE NON-EXEMPT Document Signatures Signed By: Lolis Ivan RN-PATIENT CARE BEDSIDE NON-EXEMPT 03/13/21 16:11 documented in this encounter Plan of Treatment Not on file documented as of this encounter Visit Diagnoses Not on filedocumented in this encounter Care Teams Chief Crew Scheduler Relationship Specialty Start Date End Date Reina Olmedo, CASING WORKER [address] [place] [address] PCP - General Nurse Practitioner 11/14/22 10/01/23 documented as of this encounter
--- OUTSIDE RECORDS SUMMARY | 2024-10-08 09:29 | XMS_ITS | Encounter Summary ---
Author Organization [employer] ([place], [place], [place], [place]) Address [address] [place] [address] Care Team Providers Care Computing Tutor Name Role Phone Reina Olmedo DASHAWN Primary Care Provider [phone] Encounter Details Date Type Department Care Team (Late st Contact Info) Description 03/13/2021 Transcribed Document [facility] [place] [address] [place] [address] ProviderVeronica MD [address] [place] [address] Social History Tobacco Use Types Packs/Day Years Used Date Smoking Tobacco: Never Assessed Comments Unknown Sex and Gender Information Value Date Recorded Sex Assigned at Not on file Legal Sex Female 4:58 PM CDT Gender Identity Not on file Sexual Orientation Not on file documented as of this encounter Miscellaneous Notes * Cerner Conversion Note - Veronica ProviderMD - 03/13/2021 3:38 PM BRUSH MACHINE SETTER Patient: YANE REBOLLEDO Age: 50 years Sex: Female : 1970 Associated Diagnoses: None Author: CARINE RAMEY MD-[facility] Upper Endoscopy Procedure Report: Esophagogastroduodenoscopy with cold biopsies and TTS balloon dilation Endoscopist: Carine Ramey II, MD Referring physician: Shay Carr MD/MICHELLE Romero Date of procedure: March 13, 2021 Equipment Olympus GIF 190 standard gastroscope Sedation: MAC sedation Indication: Mrs. Rebolledo is a 50-year-old female with intermittent reflux since her 20s. In the past several months she has had worsened symptoms with some dysphagia and food getting stuck especially solid foods such as meats. She will sometimes have to regurgitate. She has had increased reflux and hoarseness with frequent clearance of the throat and some globus sensation. She did see ENT (Dr. Carr) and had laryngoscopy. She was placed on omeprazole. She had a barium swallow that showed a small paraesophageal hernia and reflux. The patient does have some chronic constipation. She does have some dyspepsia and reports epigastric discomfort, bloating, belching and fullness. This is her first upper endoscopy Procedure: Prior to the procedure, history and physical exam was performed and the patient's medications and allergies were reviewed. The risks, benefits and alternatives of the sedation and procedure were discussed with the patient. All questions were answered and informed consent was obtained. The patient was brought to the procedure room. Patient identification and proposed procedure were verified by the physician and the nurse. The patient was placed in a left lateral decubitus position and the scope was passed under direct vision. Throughout the procedure, the patient's blood pressure, pulse and oxygen saturation were monitored continuously. The upper endoscopy was accomplished without difficulty and the patient tolerated the procedure well. Findings: The scope was passed directly into the upper esophagus and advanced to the third portion of the duodenum. The post bulbar duodenum and duodenal bulb were normal with normal mucosa and normal conniventes. There was mild duodenal lymphoid stasis. The scope was withdrawn through a normal duodenal bulb and pylorus into the stomach. There was bile reflux with moderate linear reactive gastropathy of the antrum and body of the stomach. Cold biopsies were obtained. Upon retroflexion there was no hiatal hernia. The scope was then withdrawn into the esophagus. There was no evidence of reflux esophagitis or Barnes's. There was a serrated Z-line. There was mild corrugation of the esophageal mucosa (possibly secondary to reflux). There was also evidence of tertiary contractions and moderate esophageal dysmotility. Biopsies were obtained from the distal and proximal esophagus to rule out eosinophilic esophagitis. The entire esophagus was dilated to 60 [place]/20 mm with a TTS hydrostatic balloon. There was some resistance at the cricopharyngeus/cricopharyngeal spasm. The remainder of the esophageal mucosa was normal. Impression: 1. 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 Bile reflux with moderate linear reactive gastropathy Plan: I will follow up the biopsies. The patient does have functional GERD with bile reflux and esophageal dyskinesia/esophageal spasm. We will discuss dietary measures and treatment options. documented in this encounter Plan of Treatment Not on file documented as of this encounter Visit Diagnoses Not on filedocumented in this encounter Care Teams Computing Tutor Relationship Specialty Start Date End Date Reina Olmedo, PAINT GRINDER [employer] [address] [place] [address] PCP - General Nurse Practitioner 11/14/22 10/01/23 documented as of this encounter
--- OUTSIDE RECORDS SUMMARY | 2024-10-08 09:29 | XMS_ITS | Encounter Summary ---
Author Organization [employer] ([place], [place], [place], [place]) Address [address] [place] [address] Care Team Providers Care Wetlands Technician Name Role Phone Nelliekarissa Reina Nilsa TAMEZ Primary Care Provider [phone] Encounter Details Date Type Department Care Team (Late st Contact Info) Description 08/04/2020 Transcribed Document [facility] [place] Family Medicine [address] [place] [address] ProviderVeronica MD [address] [place] [address] Social History Tobacco Use Types Packs/Day Years Used Date Smoking Tobacco: Never Assessed Comments Unknown Sex and Gender Information Value Date Recorded Sex Assigned at Not on file Legal Sex Female 4:58 PM CDT Gender Identity Not on file Sexual Orientation Not on file documented as of this encounter Miscellaneous Notes * Cerner Conversion Note - Veronica Correa MD - 08/04/2020 12:17 PM CDT Patient Education Materials Follows:and Gynecology Salpingectomy, Care After This sheet gives you information about how to care for yourself after your procedure. Your health care provider may also give you more specific instructions. If you have problems or questions, contact your health care provider. What can I expect after the procedure? After the procedure, it is common to have: ??? Pain in your abdomen. ??? Some light vaginal bleeding (spotting) for a few days. ??? Tiredness. Your recovery time will vary depending on which method your surgeon used for your surgery. Follow these instructions at home: Incision care ??? Follow instructions from your health care provider about how to take care of your incisions. Make sure you: ? Wash your hands with soap and water before and after you change your bandage (dressing). If soap and water are not available, use hand lining cementer. ? Change or remove your dressing as told by your health care provider. ? Leave any stitches (sutures), skin glue, or adhesive strips in place. These skin closures may need to stay in place for 2 weeks or longer. If adhesive strip edges start to loosen and curl up, you may trim the loose edges. Do not remove adhesive strips completely unless your health care provider tells you to do that. ??? Keep your dressing clean and dry. ??? Check your incision area every day for signs of infection. Check for: ? Redness, swelling, or pain that gets worse. ? Fluid or blood. ? Warmth. ? Pus or a bad smell. Activity ??? Rest as told by your health care provider. ??? Avoid sitting for a long time without moving. Get up to take short walks every 1?2 hours. This is important to improve blood flow and breathing. Ask for help if you feel weak or unsteady. ??? Return to your normal activities as told by your health care provider. Ask your health care provider what activities are safe for you. ??? Do not drive until your health care provider says that it is safe. ??? Do not lift anything that is heavier than 10 lb (4.5 kg), or the limit that you are told, until your health care provider says that it is safe. This may be 2?6 weeks depending on your surgery. ??? Until your health care provider approves: ? Do not douche. ? Do not use tampons. ? Do not have sex. Medicines ??? Take qloe-ywk-dhubmzw and prescription medicines only as told by your health care provider. ??? Ask your health care provider if the medicine prescribed to you: ? Requires you to avoid driving or using heavy machinery. ? Can cause constipation. You may need to take actions to prevent or treat constipation, such as: ? Drink enough fluid to keep your urine pale yellow. ? Take dshn-yvz-dgtvbfv or prescription medicines. ? Eat foods that are high in fiber, such as beans, whole grains, and fresh fruits and vegetables. ? Limit foods that are high in fat and processed sugars, such as fried or sweet foods. General instructions ??? Wear compression stockings as told by your health care provider. These stockings help to prevent blood clots and reduce swelling in your legs. ??? Do not use any products that contain nicotine or tobacco, such as cigarettes, e-cigarettes, and chewing tobacco. If you need help quitting, ask your health care provider. ??? Do not take baths, swim, or use a hot tub until your health care provider approves. You may take showers. ??? Keep all follow-up visits as told by your health care provider. This is important. Contact a health care provider if you have: ??? Pain when you urinate. ??? Redness, swelling, or pain around an incision. ??? Fluid or blood coming from an incision. ??? Pus or a bad smell coming from an incision. ??? An incision that feels warm to the touch. ??? A fever. ??? Abdominal pain that gets worse or does not get better with medicine. ??? An incision that starts to break open. ??? A rash. ??? Light-headedness. ??? Nausea and vomiting. Get help right away if you: ??? Have pain in your chest or leg. ??? Develop shortness of breath. ??? Faint. ??? Have increased or heavy vaginal bleeding, such as soaking a pad in an hour. Summary ??? After the procedure, it is common to feel tired, have some pain in your abdomen, and have some light vaginal bleeding for a few days. ??? Follow instructions from your health care provider about how to take care of your incisions. ??? Return to your normal activities as told by your health care provider. Ask your health care provider what activities are safe for you. ??? Do not douche, use tampons, or have sex until your health care provider approves. ??? Keep all follow-up visits as told by your health care provider. This information is not intended to replace advice given to you by your health care provider. Make sure you discuss any questions you have with your health care provider. Document Revised: 03/01/2019 Document Reviewed: 03/01/2019 [employer] Patient Education ? 2020 [employer] Total Laparoscopic Hysterectomy, Care After This sheet gives you information about how to care for yourself after your procedure. Your health care provider may also give you more specific instructions. If you have problems or questions, contact your health care provider. What can I expect after the procedure? After the procedure, it is common to have: ??? Pain and bruising around your incisions. ??? A sore throat, if a breathing tube was used during surgery. ??? Fatigue. ??? Poor appetite. ??? Less interest in sex. If your ovaries were also removed, it is also common to have symptoms of menopause such as hot flashes, night sweats, and lack of sleep (insomnia). Follow these instructions at home: Bathing ??? Do not take baths, swim, or use a hot tub until your health care provider approves. You may need to only take showers for 2?3 weeks. ??? Keep your bandage (dressing) dry until your health care provider says it can be removed. Incision care ??? Follow instructions from your health care provider about how to take care of your incisions. Make sure you: ? Wash your hands with soap and water before you change your dressing. If soap and water are not available, use hand lining cementer. ? Change your dressing as told by [...] to do that. ??? Check your incision area every day for signs of infection. Check for: ? Redness, swelling, or pain. ? Fluid or blood. ? Warmth. ? Pus or a bad smell. Activity ??? Get plenty of rest and sleep. ??? Do not lift anything that is heavier than 10 lbs (4.5 kg) for one month after surgery, or as long as told by your health care provider. ??? Do not drive or use heavy machinery while taking prescription pain medicine. ??? Do not drive for 24 hours if you were given a medicine to help you relax (sedative). ??? Return to your normal activities as told by your health care provider. Ask your health care provider what activities are safe for you. Lifestyle ??? Do not use any products that contain nicotine or tobacco, such as cigarettes and e-cigarettes. These can delay healing. If you need help quitting, ask your health care provider. ??? Do not drink alcohol until your health care provider approves. General instructions ??? Do not douche, use tampons, or have sex for at least 6 weeks, or as told by your health care provider. ??? Take hlpm-pkb-lcpqhnn and prescription medicines only as told by your health care provider. ??? To monitor yourself for a fever, take your temperature at least once a day during recovery. ??? If you struggle with physical or emotional changes after your procedure, speak with your health care provider or a therapist. ??? To prevent or treat constipation while you are taking prescription pain medicine, your health care provider may recommend that you: ? Drink enough fluid to keep your urine clear or pale yellow. ? Take ccqb-vop-tdlvvqp or prescription medicines. ? Eat foods that are high in fiber, such as fresh fruits and vegetables, whole grains, and beans. ? Limit foods that are high in fat and processed sugars, such as fried and sweet foods. ??? Keep all follow-up visits as told by your health care provider. This is important. Contact a health care provider if: ??? You have chills or a fever. ??? You have redness, swelling, or pain around an incision. ??? You have fluid or blood coming from an incision. ??? Your incision feels warm to the touch. ??? You have pus or a bad smell coming from an incision. ??? An incision breaks open. ??? You feel dizzy or light-headed. ??? You have pain or bleeding when you urinate. ??? You have diarrhea, nausea, or vomiting that does not go away. ??? You have abnormal vaginal discharge. ??? You have a rash. ??? You have pain that does not get better with medicine. Get help right away if: ??? You have a fever and your symptoms suddenly get worse. ??? You have severe abdominal pain. ??? You have chest pain. ??? You have shortness of breath. ??? You faint. ??? You have pain, swelling, or redness on your leg. ??? You have heavy vaginal bleeding with blood clots. Summary ??? After the procedure it is common to have abdominal pain. Your provider will give you medication for this. ??? Do not take baths, swim, or use a hot tub until your health care provider approves. ??? Do not lift anything that is heavier than 10 lbs (4.5 kg) for one month after surgery, or as long as told by your health care provider. ??? Notify your provider if you have any signs or symptoms of infection after the procedure. This information is not intended to replace advice given to you by your health care provider. Make sure you discuss any questions you have with your health care provider. Document Revised: 02/20/2018 Document Reviewed: 05/21/2017 [employer] Patient Education ? 2020 [employer]. documented in this encounter Plan of Treatment Not on file documented as of this encounter Visit Diagnoses Not on filedocumented in this encounter Care Teams Wetlands Technician Relationship Specialty Start Date End Date Reina Olmedo, ONCOLOGY REP [address] [place] [address] PCP - General Nurse Practitioner 11/14/22 10/01/23 documented as of this encounter
--- OUTSIDE RECORDS SUMMARY | 2024-10-08 09:29 | XMS_ITS | Encounter Summary ---
Author Organization [employer] ([place], [place], [place], [place]) Address [address] [place] [address] Care Team Providers Care Pharm Spec Name Role Phone Reina Olmedo APPLICATION SECURITY ARCHITECT Primary Care Provider [phone] Encounter Details Date Type Department Care Team (Late st Contact Info) Description 08/04/2020 Transcribed Document [facility] Family Medicine [address] [place] [address] ProviderVeronica MD [address] [place] [address] Social History Tobacco Use Types Packs/Day Years Used Date Smoking Tobacco: Never Assessed Comments Unknown Sex and Gender Information Value Date Recorded Sex Assigned at Not on file Legal Sex Female 4:58 PM CDT Gender Identity Not on file Sexual Orientation Not on file documented as of this encounter Miscellaneous Notes * Cerner Conversion Note - Veronica ProviderMD - 08/04/2020 11:16 AM CDT Initial Discharge Planning Entered On: 08/04/2020 11:17 EDT Performed On: 08/04/2020 11:16 EDT by ARNOLD HOYT SW Initial Assessment I Previously Documented Living Environment : No qualifying data available. Living Situation : Home Patient Lives With : Spouse Emergency Contact #1 : Meryl Cervantes Emergency Contact #1 Emergency Contact #1 Relationship : mother Emergency Contact #2 : - Emergency Contact #2 Phone Number : - Emergency Contact #2 Relationship : - Enter Doctors Name : ADA MUNOZ MD-PED Does Patient have PCP Listed? : Yes ARNOLD HOYT SW - 08/04/2020 11:16 EDT Initial Assessment II Sensory and Motor Deficits : None Current Home Treatments and Equipment : None ARNOLD HOYT SW - 08/04/2020 11:16 EDT Discharge Needs I Anticipated Discharge Date : 08/04/2020 EDT Anticipated Discharge To, CM : Home with family care Current Home Treatment/Equipment : Current Home Treatment/Equipment No qualifying data available. Post Acute/Home Treatments : None Documentation Status Complete : Yes ARNOLD HOYT SW - 08/04/2020 11:16 EDT Discharge Needs II Professional Skilled Services : Professional Skilled Services No qualifying data available. Needs Assistance with Transportation : No ARNOLD HOYT SW - 08/04/2020 11:16 EDT Narrative Note Narrative Note : Pt currently ouptatient in bed s/p Total Lap Hysterectomy and bilateral salpingectomy with Dr. Rodrigues. DC plan is to dc home with spouse when medically clear. Will follow for dc planning. ARNOLD HOYT SW - 08/04/2020 11:16 EDT documented in this encounter Plan of Treatment Not on file documented as of this encounter Visit Diagnoses Not on filedocumented in this encounter Care Teams Pharm Spec Relationship Specialty Start Date End Date Reina Olmedo, APPLICATION SECURITY ARCHITECT [address] [place] [address] PCP - General Nurse Practitioner 11/14/22 10/01/23 documented as of this encounter
--- OUTSIDE RECORDS SUMMARY | 2024-10-08 09:29 | XMS_ITS | Encounter Summary ---
Author Organization [employer] ([place], [place], [place], [place]) Address [address] [place] [address] Care Team Providers Care Mortgage Branch Manager Name Role Phone Reina Olmedo Nilsa TAMEZ Primary Care Provider [phone] Encounter Details Date Type Department Care Team (Late st Contact Info) Description 03/13/2021 Transcribed Document [facility] [place] [address] [place] [address] ProviderVeronica MD [address] [place] [address] Social History Tobacco Use Types Packs/Day Years Used Date Smoking Tobacco: Never Assessed Comments Unknown Sex and Gender Information Value Date Recorded Sex Assigned at Not on file Legal Sex Female 4:58 PM CDT Gender Identity Not on file Sexual Orientation Not on file documented as of this encounter Miscellaneous Notes * Cerner Conversion Note - Historical ProviderMD - 03/13/2021 3:43 PM TIME MOTION ANALYST [address] [address] [place] :1970 Visit Time:03/13/2021 What to do next Follow-Up Appointments Follow Up with CARINE AMATO MD-ASUNCION When Comments Please call the office if you have any questions or concerns. Where: [address] [place] [phone]- Medications What How Much When Instructions Next Dose aspirin (aspirin 81 mg oral delayed release tablet) 1 Tablet(s) Oral Every Day azelastine nasal (azelastine 137 mcg/ inh (0.1%) nasal spray) 2 [place](s) Nasal Two Times A Day citalopram (citalopram 10 mg oral tablet) 1 Tablet(s) Oral At Bedtime DULoxetine 60 Milligram(s) Oral Two Times A Day ergocalciferol (ergocalciferol 50,000 intl units (1.25 mg) oral capsule) 1 Capsule(s) Oral Weekly ergocalciferol (Vitamin D2 1.25 mg (50,000 intl units) oral capsule) Oral Weekly fluticasone nasal (fluticasone 50 mcg/ inh nasal spray) 1 [place](s) Nasal Every Day glimepiride 2 Milligram(s) Oral Every Day hydrochlorothiazide-losartan (hydroCHLOROthiazide-losartan 12.5 mg-50 mg oral tablet) 1 Tablet(s) Oral Two Times A Day levothyroxine (levothyroxine 125 mcg (0.125 mg) oral tablet) 1 Tablet(s) Oral Every Day linagliptin (Tradjenta) 5 Milligram(s) Oral Every Day metoprolol (Metoprolol Tartrate) 25 Milligram(s) Oral Two Times A Day olopatadine ophthalmic (olopatadine 0.1% ophthalmic solution) 1 Drop(s) Two Times A Day omeprazole 40 Milligram(s) Oral Every Day simvastatin (simvastatin 20 mg [...] and medications per pharmacy guidance. Education Materials Gastritis, Adult Gastritis is swelling (inflammation) of the stomach. Gastritis can develop quickly (acute). It can also develop slowly over time (chronic). It is important to get help for this condition. If you do not get help, your stomach can bleed, and you can get sores (ulcers) in your stomach. What are the causes? This condition may be caused by: ??? Germs that get to your stomach. ??? Drinking too much alcohol. ??? Medicines you are taking. ??? Too much acid in the stomach. ??? A disease of the intestines or stomach. ??? Stress. ??? An allergic reaction. ??? Crohn's disease. ??? Some cancer treatments (radiation). Sometimes the cause of this condition is not known. What are the signs or symptoms? Symptoms of this condition include: ??? Pain in your stomach. ??? A burning feeling in your stomach. ??? Feeling sick to your stomach (nauseous). ??? Throwing up (vomiting). ??? Feeling too full after you eat. ??? Weight loss. ??? Bad breath. ??? Throwing up blood. ??? Blood in your poop (stool). How is this diagnosed? This condition may be diagnosed with: ??? Your medical history and symptoms. ??? A physical exam. ??? Tests. These can include: ? Blood tests. ? Stool tests. ? A procedure to look inside your stomach (upper endoscopy). ? A test in which a sample of tissue is taken for testing (biopsy). How is this treated? Treatment for this condition depends on what caused it. You may be given: ??? Antibiotic medicine, if your condition was caused by germs. ??? H2 blockers and similar medicines, if your condition was caused by too much acid. Follow these instructions at home: Medicines ??? Take ncwe-lti-rqldhnq and prescription medicines only as told by your doctor. ??? If you were prescribed an antibiotic medicine, take it as told by your doctor. Do not stop taking it even if you start to feel better. Eating and drinking ??? Eat small meals often, instead of large meals. ??? Avoid foods and drinks that make your symptoms worse. ??? Drink enough fluid to keep your pee (urine) pale yellow. Alcohol use ??? Do not drink alcohol if: ? Your doctor tells you not to drink. ? You are , may be , or are planning to become . ??? If you drink alcohol: ? Limit your use to: ? 0???1 drink a day for women. ? 0???2 drinks a day for men. ? Be aware of how much alcohol is in your drink. In the [place] one drink equals one 12 oz bottle of beer (355 mL), one 5 oz glass of wine (148 mL), or one 1?? oz glass of hard liquor (44 mL). General instructions ??? Talk with your doctor about ways to manage stress. You can exercise or do deep breathing, meditation, or yoga. ??? Do not smoke or use products that have nicotine or tobacco. If you need help quitting, ask your doctor. ??? Keep all follow-up visits as told by your doctor. This is important. Contact a doctor if: ??? Your symptoms get worse. ??? Your symptoms go away and then come back. Get help right away if: ??? You throw up blood or something that looks like coffee grounds. ??? You have black or dark red poop. ??? You throw up any time you try to drink fluids. ??? Your stomach pain gets worse. ??? You have a fever. ??? You do not feel better after one week. Summary ??? Gastritis is swelling (inflammation) of the stomach. ??? You must get help for this condition. If you do not get help, your stomach can bleed, and you can get sores (ulcers). ??? This condition is diagnosed with medical history, physical exam, or tests. ??? You can be treated with medicines for germs or medicines to block too much acid in your stomach. This information is not intended to replace advice given to you by your health care provider. Make sure you discuss any questions you have with your health care provider. Document Revised: 07/28/2018 Document Reviewed: 07/28/2018 [employer] Patient Education ?? 2020 [employer] ESOPHAGOGASTRODUODENOSCOPY Care After Read the instructions outlined below and refer to this sheet over the next few days. These discharge instructions provide you with general information on caring for yourself after you leave the hospital. Your doctor may also give you specific instructions. While your treatment has been planned according to the most current medical practices available, unavoidable complications occasionally occur. If you have any problems or questions after discharge, call your doctor. HOME CARE INSTRUCTIONS: ACTIVITY: ??? You may resume your regular activity tomorrow, but move at a slower pace for the next 24 hours. ??? Take frequent rest periods for the next 24 hours. ??? Walking will help get rid of the air and reduce the bloated feeling in your belly (abdomen). ??? No driving for 24 hours because of the medication (sedation) used during the test. ??? You may shower. ??? Do not sign any important legal documents or operate any machinery for 24 hours (because of the sedation used during the test). NUTRITION: ??? Drink plenty of fluids. ??? You may resume your normal diet or as instructed by your doctor ??? Begin with a light meal and progress to your normal diet. Heavy or fried foods are harder to digest and may make you feel sick to your stomach (nauseated). ??? Avoid alcoholic beverages for 24 hours or as instructed. MEDICATIONS: ??? You may resume your normal medications unless your doctor tells you otherwise. WHAT TO EXPECT TODAY: ??? Some feelings of bloating in the abdomen. ??? Excessive burping today and passage of more gas than usual. ??? A sore throat can be normal. Use throat lozenges or gargle with warm salt water and drink plenty of fluids. FINDING OUT THE RESULTS OF YOUR TEST: ??? Not all test results are available during your visit. If you had biopsies or other tests done during your procedure, you can make an appointment with your doctor to get the results. Sometimes you may be instructed to call the doctor???s office for your results. It is important for you to follow up on all of your test results. SEEK IMMEDIATE MEDICAL CARE IF: ??? You cannot eat or drink. ??? You have worsening throat or chest pain. ??? You have dizziness, lightheadedness, or you faint. ??? You have severe nausea or vomiting. ??? You have a fever greater than 101. ??? You have chills. ??? You have severe abdominal pain or discomfort that gets worse throughout the day. ??? You have black, tarry, or bloody stools. Emergency Awareness and Preventative Care STROKE is [...] Assistance with quitting is available by contacting 0-827-YTLO-NOW. This is a free resource providing counseling, [...] This Visit (last charted value for your 03/13/2021 visit) Microbiology 03/13/2021 12:31 PM SARS-CoV-2 (COVID19 PCR): Negative General Chemistry 03/13/2021 2:19 PM Glucose POC2: 87 mg/dL -- Normal range between ( 70 and 110 ) Patient Name:YANE REBOLLEDO I have received this information and was given the opportunity to ask questions. Patient/Pool Cleaner Name: Patient/Pool Cleaner Signature: Relationship to Patient: Clinician/Hospital Pool Cleaner Signature: Date: documented in this encounter Plan of Treatment Not on file documented as of this encounter Visit Diagnoses Not on filedocumented in this encounter Care Teams Mortgage Branch Manager Relationship Specialty Start Date End Date Reina, EXECUTIVE CREATIVE DIRECTOR [address] [place] [address] PCP - General Nurse Practitioner 11/14/22 10/01/23 documented as of this encounter
--- OUTSIDE RECORDS SUMMARY | 2024-10-08 09:29 | XMS_ITS | Clinical Summary ---
Author Organization [facility] Address [address] [place] [address] Care Team Providers Care Despatch Clerk Name Role Phone Sonia Dumas Primary Care Provider [phone] Allergies Active Allergy Reactions Criticality Noted Date Comments Corylus Hives,Itching,Rash High 01/06/2023 Egg Solids, Whole Hives,Itching,Rash High 01/06/2023 Milk (Cow) Hives,Itching,Rash High 01/06/2023 Molds & Smuts Hives,Itching,Rash High 01/06/2023 Tomato Hives,Itching,Rash High 01/06/2023 Dundee Hives,Itching,Rash High 01/06/2023 Medications aspirin 81 MG EC tablet 1 tablet (81 mg). 4 Active azelastine (Astelin) 0.1 % nasal spray Administer 1 spray into affected nostril(s). 4 Active cetirizine (ZyrTEC) 10 MG tablet 1 tablet (10 mg). 4 Active citalopram (CeleXA) 40 MG tablet 1 tablet (40 mg). 4 Active Docusate Sodium (DSS) 100 MG capsule Take 100 mg by mouth. 4 Active DULoxetine (Cymbalta) [address] capsule Take 1 capsule (60 mg) by mouth twice a day. 4 Active ergocalciferol 1.25 MG (88146 UT) capsule Take 1 capsule (50,000 Units) by mouth 1 (one) time per week. 4 Active FeroSul 325 (65 Fe) MG tablet Take 1 tablet (325 mg) by mouth. 3 Active fluticasone (Flonase) 50 MCG/ACT nasal spray 1 spray. 4 Active glimepiride (Amaryl) 1 MG tablet 1 tablet (1 mg). 4 Active FREESTYLE LITE test strip 1 each by Other route. 4 Active hydrOXYzine HCl (Atarax) 50 MG tablet 2 tablets (100 mg). 4 Active lamoTRIgine (LaMICtal) 25 MG tablet TAKE 1 TABLET BY MOUTH ONCE DAILY FOR 2 WEEKS THEN INCREASE TO 2 TABLETS DAILY. IF YOU DEVELOP A RASH OR ITCHING, STOP THE MEDICATION, AND CALL THE CLINIC. 4 Active FreeStyle Lancets USE 1 LANCET TO CHECK GLUCOSE THREE TIMES DAILY TO CHECK BLOOD SUGAR 4 Active levothyroxine (Synthroid, Levoxyl) 137 MCG tablet Take 1 tablet (137 mcg) by mouth 1 (one) time each day. Active losartan-hydroC HLOROthiazide (Hyzaar) 50-12.5 MG tablet 1 tablet. 4 Active metoprolol tartrate (Lopressor) 25 MG tablet 1 tablet (25 mg). 4 Active montelukast (Singulair) 10 MG tablet 1 tablet (10 mg). 4 Active omeprazole (PriLOSEC) [address] capsule TAKE 1 CAPSULE BY MOUTH EVERY 12 HOURS FOR 14 DAYS 4 Active Mounjaro 10 MG/0.5ML solution pen-injector solution pen-injector 4 Active simvastatin (Zocor) 40 MG tablet 1 tablet (40 mg). 4 Active traZODone (Desyrel) 100 MG tablet TAKE 1 TABLET BY MOUTH ONCE DAILY AT BEDTIME FOR 30 DAYS 4 Active clotrimazole (Lotrimin) 1 % external solution APPLY TO TOENAILS DAILY UNTIL ABNORMAL APPEARENCE RESOLVES 4 Active ketoconazole (NIZOral) 2 % cream 4 Active Active Problems Problem Noted Date Diagnosed Date Candidal intertrigo 12/25/2023 Cellulitis 12/25/2023 GERD (gastroesophageal reflux disease) 4 Seasonal allergies 12/25/2023 Left knee pain 08/04/2023 Anxiety and depression 01/21/2022 Arthritis 01/21/2022 Hyperlipidemia 01/21/2022 Hypertension 03/22/2021 Hypothyroidism 03/22/2021 Decreased glomerular filtration rate (GFR) 11/15 Edema, unspecified 09/04/2020 Morbid obesity 08/01/2020 Type 2 diabetes mellitus 07/31/2020 Obstructive sleep apnea syndrome 07/24/2020 Vitamin D deficiency 05/17/2020 Excessive sweating 12/17/2019 Menopausal and female climacteric states 020 Immunizations Immunization Administration Dates Next Due Hep A, Adult 08/07/2018,01/06/2018 Influenza, injectable, quadr ivalent, preservative free 12/19/2022,12/24/2021,01/26/2021,02/05,01/06/2018 Influenza, seasonal, injecta ble, preservative free 12/25/2023 Pneumococcal 20-nereyda Conj Vaccine 08/09/2021 Pneumococcal Polysaccharide PPV23 01/21/2014 Tdap 04/21/2023 Zoster, Recombinant 03/04/2023,12/27/2022 Family History Medical History Relation Name Comments Alcohol abuse Brother David Asthma Brother David Depression Brother David Diabetes Brother David Hearing loss Brother David Hyperlipidemia Brother David Hypertension Brother David Mental illness Brother David COPD Maternal Grandmother Samanta Diabetes Maternal Grandmother Samanta Early natural Maternal Grandmother Samanta Heart disease Maternal Grandmother Samanta Hyperlipidemia Maternal Grandmother Samanta Hypertension Maternal Grandmother Samanta Alcohol abuse Mother Meryl Heart disease Mother Meryl Hypertension Mother Meryl Alcohol abuse Mother's Brother 1 Payam Diabetes Mother's Brother 1 Payam Early natural Mother's Brother 1 Payam Hearing loss Mother's Brother 1 Payam Heart attack Mother's Brother 1 Payam Heart disease Mother's Brother 1 Payam Hyperlipidemia Mother's Brother 1 Payam Hypertension Mother's Brother 1 Payam Alcohol abuse Mother's Brother 2 Lawrence Early natural Mother's Brother 2 Lawrence Kidney disease Mother's Brother 2 Lawrence Alcohol abuse Mother's Sister 1 Meredith Cancer Mother's Sister 1 Meredith Alcohol abuse Mother's Sister 2 Erica Relation Name Status Comments Brother David Maternal Grandmother Samanta Mother Meryl Mother's Brother 1 Payam Mother's Brother 2 Lawrence Mother's Sister 1 Meredith Mother's Sister 2 Erica Social History Tobacco Use Types Packs/Day Years Used Date Smoking Tobacco: Former Cigarettes 1 12 0 12/17/1987 - 10/22/1999 Smokeless Tobacco: Never Alcohol Use Standard Drinks/Week Comments Never 0 (1 standard drink = 0.6 oz pur e alcohol) PHQ-2 Answer Date Recorded Patient Health Questionnaire-2 Score 0 12/25/2023 Comments Unknown Sex and Gender Information Value Date Recorded Sex Assigned at Female 12/25/2023 5:08 PM EDT Legal Sex Female 5:57 PM EDT Gender Identity Female 12/25/2023 5:08 PM EDT Sexual Orientation Straight 12/25/2023 5: 08 PM EDT Last Filed Vital Signs Vital Sign Reading Time Taken Comments Blood Pressure 132/75 01/30/2024 12:43 PM EST Pulse 83 01/30/2024 12:43 PM EST Temperature 36.8 C (98.2 F) 12/25/2023 9:26 AM EDT Respiratory Rate - - Oxygen Saturation 96% 01/30/2024 12:43 PM EST Inhaled Oxygen Concentration - - Weight 142 kg (313 lb 0.9 oz) 01/30/2024 12:43 P M EST Height 152.4 cm (5') 01/30/2024 12:43 PM EST Body Mass Index 61.14 01/30/2024 12:43 PM EST Plan of Treatment Health Maintenance Due Date Last Done Comments [facility]-Diabetes: Hemoglobin A1C 1972 [facility]-HIV Screening 1972 [facility]-Hepatitis C Screening 1972 [facility]-/Child/Adol SDOH Screenings 1972 Diabetes: Dental Exam 1982 [facility]- SDOH Screenings 1990 [facility]-Adult SDOH Screenings 1990 [facility]-Hepatitis B Vaccines (1 of 3 - 19+ 3-dose series) 12/17/1991 CT Colonography 2017 Colonoscopy 2017 [facility]-DNA 2017 FIT 2017 FOBT 2017 Sigmoidoscopy 2017 [facility]-Colorectal Cancer Screening 2017 [facility]-Breast Cancer Screening 2022 11/11/2018 [facility]-BSFRH-10 Vaccine ( season) 2023 12/27/2022, 12/24/2021, 08/09/2021, Additional history exists [facility]-Influenza Vaccine (#1) 11/22/202412/24, 12/19/2022, 12/24/2021, Additional history exists [facility]-Depression Screening 12/24/2024 12/25/2023 [facility]-DTaP,Tdap,and Td Vaccines (2 - Td or Tdap) 04/21/2033 04/21/2023 [facility]-Cervical Cancer Screening Discontinued [facility]-HPV/Cotest Discontinued 02/04/2011 [facility]-Pap Smear Discontinued 02/04/2011 [facility]-Hepatitis A Vaccines Aged Out 08/07/2018, 12/22 No longer eligible based on patient's age to complete this topic [facility]-Pneumococcal Vaccine: 50+ Years Completed 08/09/2021, 01/21/2014 [facility]-Zoster Vaccines Completed 03/04/2023, [facility]-Obesity Intervention Completed 01/30/2024, 05/2023 HPV Vaccines Aged Out No longer eligi ble based on patient's age to complete this topic [facility]-HIB Vaccines Aged Out No longer e ligible based on patient's age to complete this topic [facility]-IPV Vaccines Aged Out No longer e ligible based on patient's age to complete this topic [facility]-Rotavirus Vaccines Aged Out No lo nger eligible based on patient's age to complete this topic Procedures Procedure Name Priority Date/Time Associated Diagnosis Comments CYTO DATA CONVERSION Routine 02/04/2011 12:00 AM EST from Last 3 Months or Most Recently Relevant to Health Maintenance Results * Cytology (02/04/2011 12:00 AM EST) 02/04/2011 02/05/2011 2:0 9 PM EST Narrative SUNQUEST - 02/11/2011 4:50 PM EST [facility] MR #: [id number] [facility] [place] [facility] [place] [id number] 1970 (Age: 40) FW Collect Date: 02/04/2011 00:00 Receipt Date: 02/05/2011 14:09 Page 1 DEPARTMENT OF PATHOLOGY AND LABORATORY MEDICINE CYTOPATHOLOGY REPORT Email: [email or web address] ATTENDING MD/Practitioner: Gregg Huerta MD Service: OBE Location: [facility] Reported: 02/11/2011 16:50 Collected: 02/04/2011 00:00 INTERPRETATION A. THIN PREP (CERVICAL/VAGINAL): NEGATIVE FOR INTRAEPITHELIAL LESION OR MALIGNANCY. SATISFACTORY FOR EVALUATION; TRANSFORMATION ZONE COMPONENT CANNOT BE DEFINITIVELY IDENTIFIED DUE TO THE PRESENCE OF ATROPHY OR OTHER HORMONAL CHANGES. Slide scanned and imaged by [employer] ThinPrep Imaging System with manual review of all selected syed. Electronically Signed Out By FERNANDEZ Barrientos(ASCP) FERNANDEZ Barrientos(ASCP) Cervical cytology is a screening test primarily for squamous cancers and precursors and has associated false negative and positive results. New technologies such as liquid based sampling may decrease but will not eliminate all false negative results. Regular screening and follow-up of unexplained clinical signs and symptoms are recommended to minimize false negative results. Please see the ASCCP website (www.asccp.org) for followup recommendations. If HPV testing was requested, correlation with the results is suggested (please call Microbiology at [phone] for results). CLINICAL INFORMATION: Menstrual History: Other: absent Date of Last Menstrual Period: 09/2008 Contraceptive History: Hormonal Other Clinical Conditions: If ASCUS and > 24 years of age, HPV/DNA testing requested. SPECIMEN DESCRIPTION: A: THIN PREP (CERVICAL/VAGINAL) THIN PREP PROCESS CELLULAR ENHANCEMENT ICD: F: A; RT IMAGE 69113 SNOMED CODES: A; [id number] In cases where a pathologist has signed out the report, the service has been rendered in part by a resident. The signing pathologist has performed and is responsible for the reported pathologic evaluation. Nataliya Huerta MD LAB PATHOLOGY ORDERABLES Fin al Result SUNOfferial from Last 3 Months or Most Recently Relevant to Health Maintenance Insurance [facility] MEDICAID Care Teams Despatch Clerk Relationship Specialty Start Date End Date Sonia Dumas PA [address] [place] [address] PCP - General 02/02/24
--- OUTSIDE RECORDS SUMMARY | 2024-10-08 09:29 | XMS_ITS | Encounter Summary ---
Author Organization [employer] ([place], [place], [place], [place]) Address [address] [place] [address] Care Team Providers Care Thread Clipper Name Role Phone Nelliekarissa Reina Nilsa TAMEZ Primary Care Provider [phone] Encounter Details Date Type Department Care Team (Late st Contact Info) Description 11/08/2020 Transcribed Document [facility] [place] [address] [place] [address] ProviderVeronica MD [address] [place] [address] Social History Tobacco Use Types Packs/Day Years Used Date Smoking Tobacco: Never Assessed Comments Unknown Sex and Gender Information Value Date Recorded Sex Assigned at Not on file Legal Sex Female 4:58 PM CDT Gender Identity Not on file Sexual Orientation Not on file documented as of this encounter Miscellaneous Notes * Cerner Conversion Note - Historical ProviderMD - 11/08/2020 11:36 AM CDT DATE OF SERVICE: 09/05/2020 SLEEP STUDY TESTING PERFORMED: Home sleep test type 3. DATA: Height 60, weight 300, body mass index 58.6. MONTAGE: Continuous recording of pulse oximetry, heart rate, airflow and respiratory effort were recorded during the patient's habitual sleep time. Respiratory events were scored according to The AASM Manual for the Scoring of Sleep and Associated Events using the 1B 4% hypopnea rule. FINDINGS: 1. The total recording time was 489 minutes. Of this time, all of the data was technically adequate for scoring. 2. The clock lights off time was 11:16 pm, the clock lights on time was 7:26 am. 3. Obstructive sleep apnea is present and is moderate. The overnight AHI is 21.7. Events consisted of 173 hypopneas and 2 obstructive apneas. 4. The entire study was in the supine position. 5. Nocturnal oxygen desaturation occurred to a minimum saturation of 81%. There was 5.4 minutes below 88% saturation. 6. Heart rate data showed an average heart rate of 84. Artifact was present at intervals. 7. Rwbo-[id number] snoring was present. IMPRESSION: Moderate obstructive sleep apnea. PLAN: The patient is scheduled to return to clinic to review data and treatment options. In the interim, she will be offered a trial of auto CPAP at 6-20 cm. /[id number] Melinda Lopez MD PAC/AQ / PAC / MODL /[id number] Electronically signed by Deyvi [facility] Conversion Promotion Officer Cerner at 07/09/2022 12:17 PM CDT documented in this encounter Plan of Treatment Not on file documented as of this encounter Visit Diagnoses Not on filedocumented in this encounter Care Teams Thread Clipper Relationship Specialty Start Date End Date Reina Olmedo, METEOROLOGICAL ENGINEER [address] [place] [address] PCP - General Nurse Practitioner 11/14/22 10/01/23 documented as of this encounter
--- OUTSIDE RECORDS SUMMARY | 2024-10-08 09:29 | XMS_ITS | Encounter Summary ---
Author Organization [employer] ([place], [place], [place], [place]) Address [address] [place] [address] Care Team Providers Care Wireless Sales Associate Name Role Phone Nelliekarissa Reina Nilsa TAMEZ Primary Care Provider [phone] Encounter Details Date Type Department Care Team (Late st Contact Info) Description 08/16/2020 Transcribed Document [facility] [place] Family Medicine [address] [place] [address] ProviderVeronica MD [address] [place] [address] Social History Tobacco Use Types Packs/Day Years Used Date Smoking Tobacco: Never Assessed Comments Unknown Sex and Gender Information Value Date Recorded Sex Assigned at Not on file Legal Sex Female 4:58 PM CDT Gender Identity Not on file Sexual Orientation Not on file documented as of this encounter Miscellaneous Notes * Cerner Conversion Note - Historical ProviderMD - 08/16/2020 10:00 AM CDT DATE OF SERVICE: 08/16/2020 SLEEP CONSULTATION HISTORY: This 49-year-old patient comes in today for evaluation of sleep disorder, referred by Dr. Rosa Jean-Baptiste. She relates that she is always tired. She has trouble sleeping at night, waking up numerous times. She states that she will sleep a lot during the day and then would not be able to sleep at night. This has been going on since 2017. I obtained and reviewed her previous data. She had a sleep consultation here in Sleep Clinic in 2017 and had a home sleep test at that time on 07/26/2016, with an AHI moderately elevated at 21. She did not keep followup. She states that she does not feel her snoring has gotten any worse and may have gotten better since then though she continues to be sleepy. She is uncertain about the results and wants confirmation. She has had some weight loss of 31 pounds since that time. Her sleep hours revealed bedtime at 11:30 p.m. She wakes up at 8 or 8:30 a.m. Her [place] score is 7. She notes snoring continuously through the night, waking up with a dry mouth and a morning headache. She occasionally has difficulty falling asleep and staying asleep at night. She also has occasional nightmares. PAST MEDICAL HISTORY: Remarkable for anxiety, depression, diabetes, hypertension. FAMILY HISTORY: Her grandmother has diabetes, heart disease and hypertension. Her uncle has diabetes, heart disease, and hypertension. Her brother has diabetes and hypertension. REVIEW OF SYSTEMS: Detailed patient questionnaire reviewed. Positive responses include nearsighted, dry mouth, frequent urination, decreased libido, back pain, neck pain, swollen joints, itching, headaches, suicidal thoughts previously, though she denies currently, depression, anxiety, frequent thirst, feeling hot, bruising, fatigue, and night sweats. She is following regularly with Holly Vaughn for the above. SOCIAL HISTORY: She is a prior smoker, quit in 1999. Smoked about a pack a day. She does not use alcohol. She drinks two caffeinated beverages daily. Bed partner questionnaire is also reviewed relating heavy snoring in all positions with no sleep movement disorder or witnessed apneas. ALLERGIES: She has no allergies. MEDICATIONS: She currently takes: 1. Metoprolol tartrate. 2. . 3. Losartan. 4. Levothyroxine. 5. Simvastatin. 6. Citalopram. 7. Aspirin. 8. Tradjenta. 9. . PHYSICAL EXAMINATION: VITAL SIGNS: Her height is 5 feet, weight 276, body mass index 54. Neck is 18.5 inches. Respirations 18, oxygen saturation is 99%, blood pressure 134/75, heart rate 76. GENERAL: She is well developed, well nourished, in no distress. Obese. EYES: Reveal pupils equal and round with sclerae and corneas clear. ENT: She has a mask on. NECK: Supple without bruits or stridor. CHEST: Clear to auscultation. CARDIAC: Regular rate and rhythm. EXTREMITIES: Gait symmetric. No edema. NEURO: She is alert and oriented. Mood and affect are appropriate. SKIN: No clubbing or cyanosis. DATA REVIEWED: Outside data reviewed this visit and include notes of Dr. Jean-Baptiste. Alternate history, source, clinic note from 2017 in the sleep lab and home sleep study from 07/26/2016. IMPRESSION: 1. Moderate obstructive sleep apnea on a previous study in 2017. This is a home sleep study. She does not feel the results are correct and reflect her current state. She wants to redo the study. She has lost almost 30 pounds. 2. Hypertension, controlled. Treating sleep apnea would be helpful for this in the long-term. PLAN: She is to have a home sleep study and is to follow up in the clinic thereafter. If she continues to have evidence of sleep apnea, we will go ahead and start CPAP in the interim. /[id number] Melinda Lopez MD PAC/AQ / PAC / MODL /[id number] CC: DASHAWN Castanon MD Electronically signed by [facility] Conversion Classifier Cerner at 07/09/2022 12:13 PM CDT documented in this encounter Plan of Treatment Not on file documented as of this encounter Visit Diagnoses Not on filedocumented in this encounter Care Teams Wireless Sales Associate Relationship Specialty Start Date End Date Reina Olmedo APRN [address] [place] [address] PCP - General Nurse Practitioner 11/14/22 10/01/23 documented as of this encounter
--- OUTSIDE RECORDS SUMMARY | 2024-10-08 09:29 | XMS_ITS | Encounter Summary ---
Author Organization [employer] ([place], [place], [place], [place]) Address [address] [place] [address] Care Team Providers Care Special Machine Operator Name Role Phone Reina Olmedo DASHAWN Primary Care Provider [phone] Encounter Details Date Type Department Care Team (Late st Contact Info) Description 08/04/2020 Transcribed Document [facility] [place] [address] [place] [address] ProviderVeronica MD [address] [place] [address] Social History Tobacco Use Types Packs/Day Years Used Date Smoking Tobacco: Never Assessed Comments Unknown Sex and Gender Information Value Date Recorded Sex Assigned at Not on file Legal Sex Female 4:58 PM CDT Gender Identity Not on file Sexual Orientation Not on file documented as of this encounter Miscellaneous Notes * Cerner Conversion Note - Veronica ProviderMD - 08/04/2020 12:18 [place] [address] AMAURYYANE :1970 Visit Time:08/03/2020 Your Visit Summary Your Care Team Admitting Physician - YOU HAWTHORNE MD-OBG Attending Physician - YOU HAWTHORNE MD-OBG Primary Care Physician - WILL BRIDGES, -[facility] Referring Physician - YOU HAWTHORNE MD-OBG Your Diagnosis Abnormal uterine and vaginal bleeding, unspecified, Abnormal uterine and vaginal bleeding, unspecified What to do next Instructions From Your Care Team Diet after Discharge: Resume usual diet as tolerated Activity After Discharge:As tolerated,Rest and relax today,No strenuous activities,Nothing in the vagina for 6 weeks Lifting Restrictions: no lifting over 10 lbs Weight Bearing Restrictions:Full weight bearing Minimize Stair Climbing Discuss Exercise with your physician Driving after Discharge:No driving for 2 weeks Showering Bathing:May Shower,No tub bathing, soaking or swimming,_ Notify Provider of: Redness, swelling, or drainage from incision Foul smelling vaginal discharge Temperature over 100.4 degrees Fahrenheit Weight up more than 2 pounds a day or more than 5 pounds in a week Incision pulling apart Pass blood clots larger than a golf ball Sharp pain or redness in your legs Painful urination or feeling like you have to go to the bathroom all the time Excessive vomiting or diarrhea Vaginal bleeding greater than 1 pad per hour Pain is worsening and current pain medication is not adequate When to go to the Emergency Room or call 911: Shortness of breath or chest pain Unable to reach provider Wound/Incision Care After Discharge: Keep operative site/wound site clean and dry Discharge Activity: Discharge Activity: Activity as tolerated Diet: Discharge Diet: Resume usual diet as tolerated Driving Restriction: No driving until 24 hours after taking pain medication Follow-Up Appointments Follow Up with YOU HAWTHORNE MD-OBG When 08/15/2020 02:00 PM EDT Where: [address] [place] [address]- Medications What How Much When Instructions Next Dose acetaminophen-oxyCODONE (Percocet 5/ 325 oral tablet) 1 Tablet(s) Oral Every 6 Hours not to exceed 12 tablets/ day Pickup at [facility] ibuprofen (ibuprofen 800 mg oral tablet) 1 Tablet(s) Oral Every 6 Hours not to exceed 3200 mg/ day Pickup at [facility] 08/04/20 at 6pm aspirin (aspirin 81 mg oral delayed release [...] oral tablet) 1 Tablet(s) Oral Every Day metoprolol (Metoprolol Tartrate) 25 Milligram(s) Oral Two Times A Day simvastatin (simvastatin 20 mg oral tablet) 2 Tablet(s) Oral At Bedtime Pharmacy Information [facility]: [address] [place] [address] [phone] Take your medications faithfully. Do NOT skip [...] This Visit No Immunizations Found Education Materials Salpingectomy, Care After This sheet gives you [...] and water are not available, use hand drum sander offbearer. ? Change or remove your dressing as [...] Get up to take short walks every 1???2 hours. This is important to improve blood [...] that it is safe. This may be 2???6 weeks depending on your surgery. ??? Until your health care provider approves: ? Do not douche. ? Do not use tampons. ? Do not have sex. Medicines ??? Take tvdk-vbb-kdlanrj and prescription medicines only as told by your health care provider. ??? Ask your health care provider if the medicine prescribed to you: ? Requires you to avoid driving or using heavy machinery. ? Can cause constipation. You may need to take actions to prevent or treat constipation, such as: ? Drink enough fluid to keep your urine pale yellow. ? Take dhcc-lmr-zureynj or prescription medicines. ? Eat foods that [...] provider. Document Revised: 03/01/2019 Document Reviewed: 03/01/2019 [employer] Patient Education ?? 2020 Glance App. Total Laparoscopic Hysterectomy, Care After This sheet [...] may need to only take showers for 2???3 weeks. ??? Keep your bandage (dressing) dry until your health care provider says it can be removed. Incision care ??? Follow instructions from your health care provider about how to take care of your incisions. Make sure you: ? Wash your hands with soap and water before you change your dressing. If soap and water are not available, use hand drum sander offbearer. ? Change your dressing as told by [...] by your health care provider. ??? Take eufw-rmc-phwqimh and prescription medicines only as told by [...] urine clear or pale yellow. ? Take ijnb-dam-yexckrb or prescription medicines. ? Eat foods that [...] provider. Document Revised: 02/20/2018 Document Reviewed: 05/21/2017 [employer] Patient Education ?? 2020 Glance App. acetaminophen and oxycodone (a SEET a MIN oh fen and OX i KOE done) Endocet 10/325, Endocet 2.5/325, Endocet 5/325, Endocet 7.5/325, Nalocet, Percocet, Primlev What is the most important information I should know about acetaminophen and oxycodone? MISUSE OF OPIOID MEDICINE CAN CAUSE ADDICTION, OVERDOSE, OR . Keep the medication in a place where others cannot get to it. Taking opioid medicine during may cause life-threatening [...] moderate to severe pain. Acetaminophen and oxycodone contains an opioide medicine and may be habit-forming. Acetaminophen and oxycodone may also be used [...] may need medical treatment for several weeks. Ask a doctor before using opioid medicine if you are . Tell your doctor if you notice severe drowsiness or slow breathing in the nursing baby. How should I take acetaminophen and oxycodone? Follow all directions on your prescription label. Never take this medicine in larger amounts, or for longer than prescribed. An overdose can damage your liver or cause . Tell your doctor if you feel an increased urge to use more of this medicine. Never share opioid medicine with another person, especially someone with a history of drug abuse or addiction. MISUSE CAN CAUSE ADDICTION, OVERDOSE, OR . Keep the medicine in a place where others cannot get to it. Selling or giving away opioid medicine is against the law. Measure liquid medicine [...] Help line at . An overdose of this medicine can be fatal, especially in a child or other person using the medicine without a prescription. Overdose symptoms may include nausea, vomiting, sweating, severe drowsiness, pinpoint pupils, slow breathing, or no breathing. Your doctor may recommend you get naloxone (a medicine to reverse an opioid overdose) and keep it with you at all times. A person caring for you can give the naloxone if you stop breathing or don't wake up. Your caregiver must still get emergency medical help and may need to perform CPR (cardiopulmonary resuscitation) on you while waiting for help to arrive. Anyone can buy naloxone from a pharmacy or local health department. Make sure any person caring for you knows where you keep naloxone and how to use it. What should I avoid while taking acetaminophen [...] occur. A person caring for you should give naloxone and/or seek emergency medical attention if you have [...] noisy breathing, sighing, shallow breathing, breathing that stops; ?? a light-headed feeling, like you might pass out; ?? weakness, tiredness, fever, unusual bruising or bleeding; ?? confusion, unusual thoughts or behavior; ?? problems with urination; ?? liver problems--nausea, upper stomach pain, tiredness, loss of appetite, dark urine, ishan-colored stools, jaundice (yellowing of the skin or eyes); ?? low cortisol levels-- nausea, vomiting, loss of appetite, dizziness, worsening tiredness or weakness; or ?? high levels of serotonin in the body--agitation, hallucinations, fever, sweating, shivering, fast heart rate, muscle stiffness, twitching, loss of coordination, nausea, vomiting, diarrhea. Serious breathing problems may be more likely in older adults and in those who are debilitated or have wasting syndrome or chronic breathing disorders. Common side effects include: ?? dizziness, drowsiness, feeling tired; ?? feelings of extreme happiness or sadness; ?? nausea, vomiting, stomach pain; ?? constipation; or ?? headache. This is not a complete list of side effects and others may occur. Call your doctor for medical advice about side effects. You may report side effects to FDA at 5-702-JOG-2885. What other drugs will affect acetaminophen and [...] bowel syndrome, or overactive bladder; ?? other opioids--opioid pain medicine or prescription cough medicine; ?? [...] affect acetaminophen and oxycodone, including prescription and dbew-ilk-kwfzaub medicines, vitamins, and herbal products. Not all [...] to ensure that the information provided by [employer]. ('[employer]') is accurate, up-to-date, and complete, but no guarantee is made to that effect. Drug information contained herein may be time sensitive. [employer] information has been compiled for use by healthcare practitioners and consumers in the [place] and therefore [employer] does not warrant that uses outside of the [place] are appropriate, unless specifically indicated otherwise. [employer]'s drug information does not endorse drugs, diagnose patients or recommend therapy. [employer]s drug information is an informational resource designed [...] effective or appropriate for any given patient. [employer] does not assume any responsibility for any aspect of healthcare administered with the aid of information [employer] provides. The information contained herein is not intended to cover all possible uses, directions, precautions, warnings, drug interactions, allergic reactions, or adverse effects. If you have questions about the drugs you are taking, check with your doctor, nurse or pharmacist. Copyright 8910-5132 [employer]. Version: 20.03. Revision Date: 04/28/2020. ibuprofen (EYE bue PROE fen) Advil, Genpril, IBU, Midol IB, Motrin IB, Proprinal, Smart Sense Children's Ibuprofen What is the most important information I should know about ibuprofen? Ibuprofen can increase your risk of fatal heart attack or stroke. Do not use this medicine just before or after heart bypass surgery (coronary artery bypass graft, or CABG). Ibuprofen may also cause stomach or intestinal bleeding, which can be fatal. What is ibuprofen? Ibuprofen is a nonsteroidal anti-inflammatory drug (NSAID). Ibuprofen is used to reduce fever and [...] risk of fatal heart attack or stroke, even if you don't have any risk factors. Do not use this medicine just before [...] NSAID. Ask a doctor or pharmacist if this medicine is safe to use if you have ever had: ?? heart disease, high blood pressure, high cholesterol, diabetes, or if you smoke; ?? a heart attack, stroke, or blood clot; ?? stomach ulcers or bleeding; ?? liver or kidney disease; ?? asthma; or ?? if you take aspirin to prevent heart attack or stroke. Ask a doctor before using this medicine if you are or . If you are , you should not take ibuprofen unless your doctor tells you to. Taking an NSAID during the last 20 weeks of can cause serious heart or kidney problems in the unborn baby and possible complications with your . Do not give ibuprofen to a child younger than 6 months old without the advice of a doctor. How should I take ibuprofen? Use exactly as directed on the label, or as prescribed by your doctor. Use the lowest dose that is effective in treating your condition. An ibuprofen overdose can damage your stomach or intestines. The maximum amount of ibuprofen for adults is 800 milligrams per dose or 3200 mg per day (4 maximum doses). A child's dose of ibuprofen is based on the age and weight of the child. Carefully follow the dosing instructions provided with children's ibuprofen for the age and weight of your child. Ask a doctor or pharmacist if you have questions. Take ibuprofen with food or milk to lessen stomach upset. Shake the oral suspension (liquid) before you measure a dose. Use the dosing syringe provided, or use a medicine dose-measuring device (not a kitchen spoon). You must chew the chewable tablet before you swallow it. Store at room temperature away from moisture and heat. Do not allow the liquid medicine to freeze. What happens if I miss a dose? Since ibuprofen is used when needed, you may not be on a dosing schedule. Skip any missed dose if it's almost time for your next dose. Do not use two doses at one time. What happens if I overdose? Seek emergency medical attention or call the Poison Help line at . Overdose symptoms may include nausea, vomiting, stomach pain, drowsiness, black or bloody stools, coughing up blood, shallow breathing, fainting, or coma. What should I avoid while taking ibuprofen? Ask a doctor or pharmacist before using other medicines for pain, fever, swelling, or cold/flu symptoms. They may contain ingredients similar to ibuprofen (such as aspirin, ibuprofen, ketoprofen, or naproxen). Avoid taking aspirin unless your doctor tells you to. If you also take aspirin to prevent stroke or heart attack, taking ibuprofen can make aspirin less effective in protecting your heart and blood vessels. If you take both medicines, take ibuprofen at least 8 hours before or 30 minutes after you take aspirin (non-enteric coated form). Avoid drinking alcohol. It may increase your risk of stomach bleeding. What are the possible side effects of ibuprofen? Get emergency medical help if you have signs of an allergic reaction (hives, difficult breathing, swelling in your face or throat) or a severe skin reaction (fever, sore throat, burning eyes, skin pain, red or purple skin rash with blistering and peeling). Get emergency medical help if you have [...] ?? swelling or rapid weight gain; ?? a skin rash, no matter how mild; ?? signs of stomach bleeding--bloody or tarry stools, coughing up blood or vomit that looks like coffee grounds; ?? liver problems--nausea, upper stomach pain, itching, tired feeling, flu-like symptoms, loss of appetite, dark urine, ishan-colored stools, jaundice (yellowing of the skin or eyes); ?? low red blood cells (anemia)--pale skin, feeling light-headed or short of breath, rapid heart rate, trouble concentrating; or ?? kidney problems--little or no urinating, painful or difficult urination, swelling in your feet or ankles, feeling tired or short of breath. Common side effects may include: ?? nausea, vomiting, gas; ?? bleeding; or ?? dizziness, headache. This is not a complete list of side effects and others may occur. Call your doctor for medical advice about side effects. You may report side effects to FDA at 8-408-EAB-0937. What other drugs will affect ibuprofen? Ask your doctor before using ibuprofen if you take an antidepressant. Taking certain antidepressants with an NSAID may cause you to bruise or bleed easily. Ask a doctor or pharmacist before using ibuprofen with any other medications, especially: ?? cyclosporine; ?? lithium; ?? methotrexate; ?? a blood thinner (warfarin, Coumadin, Jantoven); ?? heart or blood pressure medication, including a diuretic or 'water pill'; or ?? steroid medicine (such as prednisone). This list is not complete. Other drugs may affect ibuprofen, including prescription and rmvr-asf-tqkowdm medicines, vitamins, and herbal products. Not all possible drug interactions are listed here. Where can I get more information? Your pharmacist can provide more information about ibuprofen. Remember, keep this and all other medicines out of the reach of children, never share your medicines with others, and use this medication only for the indication prescribed. Every effort has been made to ensure that the information provided by [employer]. ('[employer]') is accurate, up-to-date, and complete, but no guarantee is made to that effect. Drug information contained herein may be time sensitive. [employer] information has been compiled for use by healthcare practitioners and consumers in the [place] and therefore [employer] does not warrant that uses outside of the [place] are appropriate, unless specifically indicated otherwise. [employer] drug information does not endorse drugs, diagnose patients or recommend therapy. [employer] drug information is an informational resource designed [...] effective or appropriate for any given patient. [employer] does not assume any responsibility for any aspect of healthcare administered with the aid of information [employer] provides. The information contained herein is not intended to cover all possible uses, directions, precautions, warnings, drug interactions, allergic reactions, or adverse effects. If you have questions about the drugs you are taking, check with your doctor, nurse or pharmacist. Copyright 5375-6036 [employer]. Version: 22.01. Revision Date: 02/16/2020. Emergency Awareness and Preventative Care STROKE is [...] Assistance with quitting is available by contacting 7-676-IUIQ-NOW. This is a free resource providing counseling, [...] This Visit (last charted value for your 08/03/2020 visit) Hematology 08/04/2020 6:25 AM WBC: 10.5 K/uL -- Normal range between ( 3.9 and 10.0 ) RBC: 4.17 Million/uL -- Normal range between ( 3.93 and 5.22 ) Hct: 37.9 % -- Normal range between ( 34.1 and 44.9 ) Hgb: 12.4 Gram/dL -- Normal range between ( 11.2 and 15.7 ) Platelet Count: 235 K/uL -- Normal range between ( 163 and 369 ) MCH: 29.7 pg -- Normal range between ( 25.6 and 32.2 ) MCHC: 32.7 Gram/dL -- Normal range between ( 32.3 and 36.5 ) MCV: 90.9 fL -- Normal range between ( 79.0 and 94.8 ) Slide Review: No Eos %: 0.1 % -- Normal range between ( 1.0 and 7.0 ) Levy #: 0.79 K/uL -- Normal range between ( 0.24 and 0.82 ) Eos #: 0.01 K/uL -- Normal range between ( 0.04 and 0.54 ) Levy %: 7.5 % -- Normal range between ( 4.7 and 12.5 ) Baso %: 0.0 % -- Normal range between ( 0.0 and 1.0 ) Baso #: 0.00 K/uL -- Normal range between ( 0.01 and 0.08 ) RDW: 12.3 % -- Normal range between ( 11.6 and 14.4 ) Neut %: 78.7 % -- Normal range between ( 34.0 and 71.0 ) Neut #: 8.28 K/uL -- Normal range between ( 1.56 and 6.13 ) Lymph %: 13.1 % -- Normal range between ( 19.3 and 53.0 ) Lymph #: 1.38 K/uL -- Normal range between ( 1.18 and 3.74 ) MPV: 9.0 fL -- Normal range between ( 9.4 and 12.4 ) IG#: 0 x10(3)/uL IG%: 1 % -- Normal range between ( 0 and 1 ) Microbiology 08/01/2020 9:05 AM SARS-CoV-2 (COVID19 PCR): Negative Blood Bank 08/03/2020 8:39 AM ABO/Rh Repeat: A POS 08/03/2020 8:37 AM ABO/Rh: A POS Antibody ID: Anti-FyA Antibody Screen (Tube): Positive Antigen Type: FyA Neg RBC Product Ready: RBC Ready Crossmatch: Electronic Crossmatch Crossmatch (AHG): Compatible # of Units:: 2 Units General Chemistry 08/04/2020 12:01 PM Glucose POC2: 142 mg/dL -- Normal range between ( 70 and 110 ) 08/03/2020 8:45 AM Glucose Level: 187 mg/dL -- Normal range between ( 74 and 106 ) 08/03/2020 8:37 AM Hgb A1C: 5.90 % -- Normal range between ( 4.20 and 6.30 ) eAVG Glucose: 123 mg/dL Endocrinology 08/03/2020 8:37 AM HCG Urine Qualitative: Negative Patient Name:YANE REBOLLEDO I have received and understand this information and was given the opportunity to ask questions. Patient/Behavioral Health Rn Name: Patient/Behavioral Health Rn Signature: Relationship to Patient: Clinician/Hospital Behavioral Health Rn Signature: Date: documented in this encounter Plan of Treatment Not on file documented as of this encounter Visit Diagnoses Not on filedocumented in this encounter Care Teams Special Machine Operator Relationship Specialty Start Date End Date FebReina hancock APRN [address] [place] [address] PCP - General Nurse Practitioner 11/14/22 10/01/23 documented as of this encounter
--- OUTSIDE RECORDS SUMMARY | 2024-10-08 09:29 | XMS_ITS | Encounter Summary ---
Author Organization [employer] ([place], [place], [place], [place]) Address [address] [place] [address] Care Team Providers Care Cashier Tube Room Name Role Phone Reina Olmedo DASHAWN Primary Care Provider [phone] Encounter Details Date Type Department Care Team (Late st Contact Info) Description 08/04/2020 Transcribed Document [facility] [place] Family Medicine [address] [place] [address] ProviderVeronica MD [address] [place] [address] Social History Tobacco Use Types Packs/Day Years Used Date Smoking Tobacco: Never Assessed Comments Unknown Sex and Gender Information Value Date Recorded Sex Assigned at Not on file Legal Sex Female 4:58 PM CDT Gender Identity Not on file Sexual Orientation Not on file documented as of this encounter Miscellaneous Notes * Cerner Conversion Note - Historical ProviderMD - 08/04/2020 11:17 AM CDT Final Discharge Planning Entered On: 08/04/2020 11:18 EDT Performed On: 08/04/2020 11:17 EDT by ARNOLD HOYT SW Final Discharge Planning Discharge Arrangements : Patient Post-Acute Information Patient Name: YANE REBOLLEDO Gender: Female : 74 Age: 49 Years No Post-Acute Placement(s) Listed No Post-Acute Service(s) Listed No [place] Referral(s) Listed Discharge To Care Management : Home/Residential/Assisted or Self Care -01 ARNOLD HOYT SW - 08/04/2020 11:17 EDT Final Narrative Note Final Narrative Note : Pt to dc home with family transport, and f/u outpatient with Dr. Rodrigues. No dc needs noted. ARNOLD HOYT SW - 08/04/2020 11:17 EDT Electronically signed by Deyvi [facility] Conversion Melter Supervisor Cerner at 07/09/2022 12:16 PM CDT documented in this encounter Plan of Treatment Not on file documented as of this encounter Visit Diagnoses Not on filedocumented in this encounter Care Teams Cashier Tube Room Relationship Specialty Start Date End Date Reina, CUSHION COVER INSPECTOR [address] [place] [address] PCP - General Nurse Practitioner 11/14/22 10/01/23 documented as of this encounter
--- OUTSIDE RECORDS SUMMARY | 2024-10-08 09:29 | XMS_ITS | Encounter Summary ---
Author Organization [employer] ([place], [place], [place], [place]) Address [address] [place] [address] Care Team Providers Care Criminal Justice Lawyer Name Role Phone NellieReina hancock Nilsa TAMEZ Primary Care Provider [phone] Reason for Visit * Reason Onset Date Comments Medication Refill 07/23/2023 Encounter Details Date Type Department Care Team (Late st Contact Info) Description 07/23/2023 Refill [facility] Cardiology - [address] [place] [address] Rosa Jean-Baptiste MD [address] [place] [address] Social History Tobacco Use Types Packs/Day Years [...] Date Joshua rded Speak language other than Cuban at home Not on file 04/09/2023 Want [...] on filedocumented in this encounter Care Teams Criminal Justice Lawyer Relationship Specialty Start Date End Date Reina Olmedo, DRILLING MANAGER [address] [place] [address] PCP - General Nurse Practitioner 11/14/22 10/01/23 documented as of this encounter
--- OUTSIDE RECORDS SUMMARY | 2024-10-08 09:29 | XMS_ITS | Encounter Summary ---
Author Organization [employer] ([place], [place], [place], [place]) Address [address] [place] [address] Care Team Providers Care Outcomes Specialist Name Role Phone Reina Olmedo DASHAWN Primary Care Provider [phone] Encounter Details Date Type Department Care Team (Late st Contact Info) Description 03/13/2021 Transcribed Document [facility] [place] [address] [place] [address] ProviderVeronica MD [address] [place] [address] Social History Tobacco Use Types Packs/Day Years Used Date Smoking Tobacco: Never Assessed Comments Unknown Sex and Gender Information Value Date Recorded Sex Assigned at Not on file Legal Sex Female 4:58 PM CDT Gender Identity Not on file Sexual Orientation Not on file documented as of this encounter Miscellaneous Notes * Cerner Conversion Note - Historical ProviderMD - 03/13/2021 2:30 PM IT ADMIN [facility] Mary PreOp Summary Primary Physician: CARINE AMATO MD-GAE Finalized Date/Time: 03/13/21 14:22:39 Pt. Name: YANE REBOLLEDO/Sex: 1970 Female Med Rec #: [id number] Physician: CARINE AMATO MD-GAE Financial #: [id number] Pt. Type: E [place] [facility] [place] Admit/Disch: 03/13/21 12:24:00 - Institution: [facility] PreOp Case Times Entry 1 In Preop 03/13/21 13:58:00 Ready for Holding n/a Room Patient Ready for n/a Surgery Patient Out of Preop 03/13/21 14:22:00 Patient Out of n/a Holding Room Finalized By: Vanna Durant, Rn Document Signatures Signed By: Vanna Durant Rn 03/13/21 14:22 documented in this encounter Plan of Treatment Not on file documented as of this encounter Visit Diagnoses Not on filedocumented in this encounter Care Teams Outcomes Specialist Relationship Specialty Start Date End Date Reina, CONSTRUCTION MATERIALS TESTER [address] [place] [address] PCP - General Nurse Practitioner 11/14/22 10/01/23 documented as of this encounter
--- OUTSIDE RECORDS SUMMARY | 2024-10-08 09:29 | XMS_ITS | Encounter Summary ---
Author Organization [employer] ([place], [place], [place], [place]) Address [address] [place] [address] Care Team Providers Care Product Development Ecologist Name Role Phone NellieReina hancock Nilsa TAMEZ Primary Care Provider [phone] Encounter Details Date Type Department Care Team (Late st Contact Info) Description 03/13/2021 Transcribed Document [facility] [place] [address] [place] [address] ProviderVeronica MD [address] [place] [address] Social History Tobacco Use Types Packs/Day Years Used Date Smoking Tobacco: Never Assessed Comments Unknown Sex and Gender Information Value Date Recorded Sex Assigned at Not on file Legal Sex Female 4:58 PM CDT Gender Identity Not on file Sexual Orientation Not on file documented as of this encounter Miscellaneous Notes * Cerner Conversion Note - Veronica ProviderMD - 03/13/2021 3:41 PM HARNESS WORKER Patient Education Materials Follows: ESOPHAGOGASTRODUODENOSCOPY Care After Read the instructions outlined [...] call your doctor. HOME CARE INSTRUCTIONS: ACTIVITY: ?? You may resume your regular activity tomorrow, but move at a slower pace for the next 24 hours. ?? Take frequent rest periods for the next 24 hours. ?? Walking will help get rid of the air and reduce the bloated feeling in your belly (abdomen). ?? No driving for 24 hours because of the medication (sedation) used during the test. ?? You may shower. ?? Do not sign any important legal documents or operate any machinery for 24 hours (because of the sedation used during the test). NUTRITION: ?? Drink plenty of fluids. ?? You may resume your normal diet or as instructed by your doctor ?? Begin with a light meal and progress to your normal diet. Heavy or fried foods are harder to digest and may make you feel sick to your stomach (nauseated). ?? Avoid alcoholic beverages for 24 hours or as instructed. MEDICATIONS: ?? You may resume your normal medications unless your doctor tells you otherwise. WHAT TO EXPECT TODAY: ?? Some feelings of bloating in the abdomen. ?? Excessive burping today and passage of more gas than usual. ?? A sore throat can be normal. Use throat lozenges or gargle with warm salt water and drink plenty of fluids. FINDING OUT THE RESULTS OF YOUR TEST: ?? Not all test results are available during your visit. If you had biopsies or other tests done during your procedure, you can make an appointment with your doctor to get the results. Sometimes you may be instructed to call the doctor's office for your results. It is important for you to follow up on all of your test results. SEEK IMMEDIATE MEDICAL CARE IF: ?? You cannot eat or drink. ?? You have worsening throat or chest pain. ?? You have dizziness, lightheadedness, or you faint. ?? You have severe nausea or vomiting. ?? You have a fever greater than 101. ?? You have chills. ?? You have severe abdominal pain or discomfort that gets worse throughout the day. ?? You have black, tarry, or bloody stools. Gastroenterology Gastritis, Adult Gastritis is swelling (inflammation) of [...] these instructions at home: Medicines ??? Take sesn-qbz-wvkroco and prescription medicines only as told by [...] alcohol: ? Limit your use to: ? 0?1 drink a day for women. ? 0?2 drinks a day for men. ? Be aware of how much alcohol is in your drink. In the [place] one drink equals one 12 oz bottle of beer (355 mL), one 5 oz glass of wine (148 mL), or one 1? oz glass of hard liquor (44 mL). [...] provider. Document Revised: 07/28/2018 Document Reviewed: 07/28/2018 [employer] Patient Education ? 2020 [employer]. documented in this encounter Plan of Treatment Not on file documented as of this encounter Visit Diagnoses Not on filedocumented in this encounter Care Teams Product Development Ecologist Relationship Specialty Start Date End Date Reina Olmedo, POLE CUTTER [address] [place] [address] PCP - General Nurse Practitioner 11/14/22 10/01/23 documented as of this encounter
--- OUTSIDE RECORDS SUMMARY | 2024-10-08 09:29 | XMS_ITS | Encounter Summary ---
Author Organization [employer] ([place], [place], [place], [place]) Address [address] [place] [address] Care Team Providers Care Psychologist Experimental Name Role Phone Reina Olmedo DASHAWN Primary Care Provider [phone] Encounter Details Date Type Department Care Team (Late st Contact Info) Description 03/13/2021 Transcribed Document [facility] [place] Family Medicine [address] [place] [address] ProviderVeronica MD [address] [place] [address] Social History Tobacco Use Types [...] - Historical ProviderMD - 03/13/2021 3:30 PM WINDOWS CONSULTANT [facility] Mary IntraOp Summary Primary Physician: CARINE AMATO MD-GAE Finalized Date/Time: 03/13/21 15:38:27 Pt. Name: YANE REBOLLEDO/Sex: 1970 Female Med Rec #: [id number] Physician: CARINE AMATO MD-GAE Financial #: [id number] Pt. Type: E Room/Bed: [facility] [place]/ Admit/Disch: 03/13/21 12:24:00 - Institution: [facility] - Case Attendance Entry 1 Entry 2 Entry 3 Case Attendee CARINE AMATO FLEMING, SCOTT, -BARTOLOME ISSA APRN, MD-GAE INDUSTRIAL WELDER-ANS Role Performed Surgeon/Proceduralist, Anesthesiologist of INDUSTRIAL WELDER/Nurse Senior Director Of [employer] First Record Time In 03/13/21 15:26:00 03/13/21 15:25:00 03/13/21 15:25:00 Time Out 03/13/21 15:38:00 03/13/21 15:38:00 03/13/21 15:38:00 Procedure Esophagogastroduodenosco Esophagogastroduodenosco Esophagogastroduodenosco py py py Other Attendee Superficial Wound Closed By: Last Modified By: Candy Bell Edmundson, Stephanie, Edmundson, Stephanie, JASSON 03/13/21 15:38:16 RN 03/13/21 15:38:16 RN 03/13/21 15:38:16 Entry 4 Entry 5 Case Attendee Onel Martin Edmundson, Stephanie, machine lead burnerMarketing Rep Role Performed Scrub, First Seam Finisher, First Time In 03/13/21 15:25:00 03/13/21 15:25:00 Time Out 03/13/21 15:38:00 03/13/21 15:38:00 Procedure Esophagogastroduodenosco Esophagogastroduodenosco py py Other Attendee Superficial Wound Closed By: Last Modified By: Candy Bell Edmundson, Stephanie, JASSON 03/13/21 15:38:16 RN 03/13/21 15:38:16 [facility] [place] - Case Attendance Audit 03/13/21 15:38:16 Radiology Aide: [id number] Modifier: [id number] 1 <+> Time Out 1 <*> Procedure Esophagogastroduodenoscopy 2 <+> Time Out 2 <*> Procedure Esophagogastroduodenoscopy 3 <+> Time Out 3 <*> Procedure Esophagogastroduodenoscopy 4 <+> Time Out 4 <*> Procedure Esophagogastroduodenoscopy 5 <+> Time Out 5 <*> Procedure Esophagogastroduodenoscopy 03/13/21 15:35:38 Radiology Aide: [id number] Modifier: [id number] 1 <*> Procedure Esophagogastroduodenoscopy 2 <*> Procedure Esophagogastroduodenoscopy 3 <*> Procedure Esophagogastroduodenoscopy 4 <*> Procedure Esophagogastroduodenoscopy 5 <*> Procedure Esophagogastroduodenoscopy 03/13/21 15:28:29 Radiology Aide: [id number] Modifier: [id number] 1 <*> Time In 03/13/21 15:25:00 1 <+> Procedure [facility] - Case Times Entry 1 Patient In Room Time 03/13/21 15:25:00 Out Room Time 03/13/21 15:38:00 Anesthesia Start Time 03/13/21 15:25:00 Stop Time 03/13/21 15:36:00 Anesthesia Ready 03/13/21 15:25:00 Surgery / Procedure Times Start Time 03/13/21 15:30:00 Stop Time 03/13/21 15:36:00 Last Modified By: Candy Bell RN 03/13/21 15:36:56 [facility] - Case Times Audit 03/13/21 15:36:56 Radiology Aide: [id number] Modifier: [id number] <+> 1 Out Room Time <+> 1 Stop Time <+> 1 Stop Time 03/13/21 15:31:02 Radiology Aide: [id number] Modifier: [id number] <+> 1 Start Time [facility] - Cultures and Spec Summary Entry 1 Cultrures and Specimens Specimen Ordered: Yes Test(s) Routine/Path-Lab Requested/Final Disposition Last Modified By: Candy Bell RN 03/13/21 15:35:50 [facility] - Delays Entry 1 Delay Reason No Delay Duration 0 Minute(s) Comment NO DELAY Last Modified By: Candy Bell RN 03/13/21 15:28:40 [facility] - Departure from OR Entry 1 Integumentary Assessment Integumentary WDL Assessment WDL Transfer/Handoff Transfer to PACU Phase I Handoff Method Bedside/Face to face Post-op Transport Stretcher/Gurney Via Patient Transport Candy Bell, Accompanied by RN, BARTOLOME POND, PUTTY PATCHER, INDUSTRIAL WELDER-ANS Last Modified By: Candy Bell RN 03/13/21 15:28:46 [facility] [place] - Endoscopy Details Entry 1 Abdomen Procedure Soft, Non-Tender Assessment Procedure Abdomen 03/13/21 15:25:00 Assessment D/T Radio Frequency Ablation Abdominal Pressure Last Modified By: Candy Bell RN 03/13/21 15:28:56 [facility] - Fire Risk Assessment Entry 1 Fire Info Surgical Site or 1- Yes Incision Above the Xyphoid Open O2 Source 1- Yes (Mask or Cannula) Available Ignition 1- Yes (ESU, Laser, Light Source) Fire Risk 3 Assessment Score Fire Score Fire Risk Yes Assessment Complete Fire Risk Candy Bell RN Assessment Verified By Fire Risk 03/13/21 15:25:00 Assessment Verified Date/Time Fire Risk High Risk Protocol Yes Implemented Standard Fire Yes Safety Precautions Followed Last Modified By: Candy Bell RN 03/13/21 15:29:03 [facility] [place] - General Case Puller Over 1 Case Information OR Endo 01 E Case Level 1 Room Verified Yes Wound Class 2 - Clean-Contaminated Specialty Gastroenterology Anesthesia Type MAC ASA Class 3 Diagnosis Preop Diagnosis Dysphagia Postop Diagnosis Esophageal stricture w/dilitation. Mild gastritis. Wound Class Definitions Last Modified By: Candy Bell RN 03/13/21 15:37:40 [facility] [place] - General Case Data Audit 03/13/21 15:37:40 Radiology Aide: [id number] Modifier: [id number] <+> 1 Postop Diagnosis [facility] - Intraoperative Assessment Entry 1 Handoff Method Bedside/Face to face Valid History / Yes Physical in Chart Preoperative Yes Checklist Reviewed/Evaluated Patient is Latex No Sensitive Isolation Not applicable Precautions Noted Level of WDL Consciousness (WDL = Alert, Oriented to Person, Place, and Time) Present Upon IVs, ECG monitored Arrival to OR Last Modified By: Candy Bell RN 03/13/21 15:29:48 [facility] [place] - Intraoperative Equipment Entry 1 Type Scope Equipment Intraop Monitoring Electrocardiogram Three lead placement (ECG) Electrode Placement Blood Pressure Arm, left upper Location Pulse Oximeter Hand, right Probe Site Antiembolic Devices Scopes Flexible Endoscopes Gastroscope Used Scope Serial [id number] Number/Identificatio n Number Photo/Video Documentation Photo Yes Video No Last Modified By: Candy Bell RN 03/13/21 15:30:00 [facility] - Patient Positioning Entry 1 Procedure Esophagogastroduodenosco py, Gastric Biopsy, Esophageal Biopsy, Esophageal Dilatation Body Position Lateral, right side up Left Arm Position Resting at side Right Arm Position Resting at side Left Leg Position Other Right Leg Position Other Position Comments Right leg over left leg uncrossed Feet Uncrossed Yes Pressure Points Yes Checked Positioned By Candy Bell RN, BARTOLOME POND, PUTTY PATCHER, INDUSTRIAL WELDER-ANS, Onel Martin, Marketing Rep Position Verified Positioning Yes Verified by Surgeon Last Modified By: Candy Bell RN 03/13/21 15:35:39 [facility] - Patient Positioning Audit 03/13/21 15:35:39 Radiology Aide: [id number] Modifier: [id number] 1 <*> Procedure Esophagogastroduodenoscopy [facility] - Sign In Entry 1 Patient, Site, Yes Procedure Identified Surgical Consent Yes Confirmed Surgical Site N/A Marked by person performing procedure Allergies No Airway Hypothermia Risk No Warming Measures Yes Taken Last Modified By: Candy Bell RN 03/13/21 15:37:50 [facility] - Sign In Audit 03/13/21 15:37:50 Radiology Aide: [id number] Modifier: [id number] <+> 1 Surgical Consent Confirmed [facility] - Sign Out Entry 1 RN Confirmation Surgical Yes Procedure(s) Identified Instrument, Sponge N/A and Sharps Counts Correct/Documented Equipment Problems N/A Documented Specimen Labeled Yes Correctly Urinary Catheter N/A Documented in IView Wound Yes classification reviewed, verified and updated post case in both the General Case Data and Procedure segments Safety Checklist Yes Elements Complete? RN Sign Out Candy Bell RN Signature RN Sign Out 03/13/21 15:38:00 Signature Date/Time Plan of Care Outcome - [...] of Care Outcome - Xray/Images OUTCOME STATEMENT: N/A Absence of observable signs or symptoms of radiation injury Plan of Care Outcome - Counts OUTCOME STATEMENT: N/A Absence of signs and symptoms of injury related to extraneous objects Last Modified By: Candy Bell RN 03/13/21 15:37:14 [facility] - Surgical Procedures Entry 1 Entry 2 Entry 3 Procedure Esophagogastroduodenosco Gastric Biopsy Esophageal Biopsy py Modifiers Additional Proximal, distal Procedure Description Primary Procedure Yes No No Primary Surgeon CARINE AMATO ROBBINS, EARL GLEN, ROBBINS, EARL GLEN, MD-GAE MD-GAE MD-GAE Start 03/13/21 15:30:00 03/13/21 15:30:00 03/13/21 15:30:00 Stop 03/13/21 15:36:00 03/13/21 15:36:00 03/13/21 15:36:00 Physician States Cecum Reached Anesthesia Type MAC MAC MAC Specialty Gastroenterology Gastroenterology Gastroenterology Wound Class 2 - Clean-Contaminated 2 - Clean-Contaminated 2 - Clean-Contaminated Last Modified By: Candy Bell Edmundson, Stephanie, Candy Bell RN 03/13/21 15:38:24 RN 03/13/21 15:38:24 RN 03/13/21 15:38:24 Entry 4 Procedure Esophageal Dilatation Modifiers Additional 18-20 Procedure Description Primary Procedure No Primary Surgeon CARINE AMATO MD-GAE Start 03/13/21 15:30:00 Stop 03/13/21 15:36:00 Physician States Cecum Reached Anesthesia [place] [facility] [place] Gastroenterology Wound Class 2 - Clean-Contaminated Last Modified By: Candy Bell RN 03/13/21 15:38:24 [facility] - Surgical Procedures Audit 03/13/21 15:38:24 Radiology Aide: [id number] Modifier: [id number] <+> 1 Stop <+> 2 Stop <+> 3 Stop <+> 4 Stop 03/13/21 15:35:28 Radiology Aide: [id number] Modifier: [id number] <+> 1 Start <+> 2 Procedure <+> 2 Primary Procedure <+> 2 Primary Surgeon <+> 2 Specialty <+> 2 Start <+> 2 Wound Class <+> 2 Anesthesia Type <+> 3 Procedure <+> 3 Primary Procedure <+> 3 Primary Surgeon <+> 3 Specialty <+> 3 Start <+> 3 Wound Class <+> 3 Anesthesia Type <+> 3 Additional Procedure Description <+> 4 Procedure <+> 4 Primary Procedure <+> 4 Primary Surgeon <+> 4 Specialty <+> 4 Start <+> 4 Wound Class <+> 4 Anesthesia Type <+> 4 Additional Procedure Description 03/13/21 15:30:57 Radiology Aide: [id number] Modifier: [id number] 1 <*> Procedure Esophagogastroduodenoscopy 1 <+> Specialty 1 <+> Wound Class [facility] - Time Out Entry 1 Procedure to be Esophagogastroduodenosco Performed py, Gastric Biopsy, Esophageal Biopsy, Esophageal Dilatation Time Out Time Out Pause Time 03/13/21 15:27:00 All activity Yes suspended (unless life threatening emergency) Team Verbally Correct patient Confirms Information identity, Consent form is present and accurate, Agreement on the procedure to be done, Correct patient position Antibiotic N/A Prophylaxis Administered Or In Progress Within the Last 60 Minutes Beta Jermain N/A Administered Venous N/A Thromboembolism Prophylaxis Required Anticipated Critical Events Surgeon None expected Last Modified By: Candy Bell RN 03/13/21 15:35:40 [facility] - Time Out Audit 03/13/21 15:35:40 Radiology Aide: [id number] Modifier: [id number] 1 <*> Procedure to be Performed Esophagogastroduodenoscopy Case Comments <None> Finalized By: Candy Bell RN Document Signatures Signed By: Candy Bell RN 03/13/21 15:38 Electronically signed by [facility] Conversion Vest Tailor Cerner at 07/09/2022 12:12 PM CDT documented in this encounter Plan of Treatment Not on file documented as of this encounter Visit Diagnoses Not on filedocumented in this encounter Care Teams Psychologist Experimental Relationship Specialty Start Date End Date Reina Olmedo, PUTTY PATCHER [address] [place] [address] PCP - General Nurse Practitioner 11/14/22 10/01/23 documented as of this encounter
--- NOTE | 2024-10-08 09:30 | XR_ITS ---
FINAL REPORT CLINICAL HISTORY: Postmenopausal COMPARISON: None FINDINGS: Using L1-4, the bone mineral density of the spine is 1.304 g/cm2, corresponding to T-score of 2.3. Using the left hip, the bone mineral density of the femoral neck is 0.990 g/cm2, corresponding to a T-score of 1.3. Using the right hip, the bone mineral density of the femoral neck is 0.928 g/cm2, corresponding to a T-score of 0.7. NOTE: T-score: Standard deviation compared with peak bone mass of young adult mean. *Following the recommendations of the International Society of Bone densitometry, classification of hip BMD is based on the lower of two T-scores; total hip or femoral neck. IMPRESSION: Normal bone mineral density of the lumbar spine and bilateral femoral necks. Reviewed, Interpreted and Dictated by Armond Galaviz MD Transcribed by Myriam Núñez Authenticated and [facility]
== END 2024-10-08 23:59 | disposition home or self-care (01) ==
LOC: RAD 09:26
PROVIDERS: PCP Orthopaedic Surgery; Visit Provider Nurse Practitioner Family
DX: Z78.0 Asymptomatic menopausal state (principal)
CPT/HCPCS: 77080

== ENCOUNTER 2024-10-13 09:26 | Outpatient (CLI) | payer MEDICAID, SELFPAY ==
--- NOTE | 2024-10-13 09:29 | XR_ITS ---
FINAL REPORT CLINICAL HISTORY: right knee pain COMPARISON: 02/11/2023 FINDINGS: Three views of the right knee were obtained. There is no acute fracture or dislocation. Mild tricompartmental degenerative change. No joint effusion. There is no acute soft tissue abnormality. IMPRESSION: Degenerative changes without acute bony abnormality. Reviewed, Interpreted and Dictated by Armond Galaviz MD Transcribed by Brissa Linares Authenticated and . [facility]
--- NOTE | 2024-10-13 09:29 | XR_ITS ---
FINAL REPORT CLINICAL HISTORY: left knee pain COMPARISON: 02/11/2023 FINDINGS: Three views of the left knee were obtained. There is no acute fracture or dislocation. Jgzz-oj-tesvemsp tricompartmental degenerative change. Findings are more pronounced in the patellofemoral joint. No joint effusion. There is no acute soft tissue abnormality. IMPRESSION: Degenerative changes without acute bony abnormality. Reviewed, Interpreted and Dictated by Armond Galaviz MD Transcribed by Brissa Linares Authenticated and [facility]
--- OUTSIDE RECORDS SUMMARY | 2024-10-13 09:33 | XMS_ITS | Clinical Summary ---
Author Organization [facility] Address [address] [place] [address] Care Team Providers Care Preforms Laminator Name Role Phone Sonia Dumas Primary Care Provider [phone] Allergies Active Allergy Reactions Criticality Noted Date Comments Corylus Hives,Itching,Rash High 01/06/2023 Egg Solids, Whole Hives,Itching,Rash High 01/06/2023 Milk (Cow) Hives,Itching,Rash High 01/06/2023 Molds & Smuts Hives,Itching,Rash High 01/06/2023 Tomato Hives,Itching,Rash High 01/06/2023 [place] Hives,Itching,Rash High 01/06/2023 Medications aspirin 81 MG [...] a day. 4 Active ergocalciferol 1.25 MG (50869 UT) capsule Take 1 capsule (50,000 Units) [...] Health Maintenance Due Date Last Done Comments [facility]-Diabetes: Hemoglobin A1C 1970 [facility]-HIV Screening 1970 [facility]-Hepatitis C Screening 1970 [facility]-/Child/Adol SDOH Screenings 1972 Diabetes: Dental Exam 1982 [facility]- SDOH Screenings 1990 [facility]-Adult SDOH Screenings 1990 [facility]-Hepatitis B Vaccines (1 of 3 - 19+ 3-dose series) 12/17/1991 CT Colonography 2017 Colonoscopy 2017 [facility]-DNA 2017 FIT 2017 FOBT 2017 Sigmoidoscopy 2017 [facility]-Colorectal Cancer Screening 2017 [facility]-Breast Cancer Screening 2022 11/11/2018 QBN-OSQMV-12 Vaccine ( season) 2023 12/27/2022, 12/24/2021, 08/09/2021, [...] Narrative SUNQUEST - 02/11/2011 4:50 PM EST [facility] MR #: [id number] [facility] [place] [id number] (Age: 40) FW Collect Date: 02/04/2011 00:00 Receipt Date: 02/05/2011 14:09 Page 1 DEPARTMENT OF PATHOLOGY AND LABORATORY MEDICINE CYTOPATHOLOGY REPORT Email: [email or web address] ATTENDING MD/Practitioner: Gregg Huerta MD Service: [facility] Location: [facility] Reported: 02/11/2011 16:50 Collected: 02/04/2011 00:00 INTERPRETATION A. THIN PREP (CERVICAL/VAGINAL): NEGATIVE FOR INTRAEPITHELIAL LESION OR MALIGNANCY. SATISFACTORY FOR EVALUATION; TRANSFORMATION ZONE COMPONENT CANNOT BE DEFINITIVELY IDENTIFIED DUE TO THE PRESENCE OF ATROPHY OR OTHER HORMONAL CHANGES. Slide scanned and imaged by [email or web address] ThinPrep Imaging System with manual review of [...] results is suggested (please call Microbiology at [phone] for results). CLINICAL INFORMATION: Menstrual History: Other: absent Date of Last Menstrual Period: 09/2008 Contraceptive History: Hormonal Other Clinical Conditions: If ASCUS and > 24 years of age, HPV/DNA testing requested. SPECIMEN DESCRIPTION: A: THIN PREP (CERVICAL/VAGINAL) THIN PREP PROCESS CELLULAR ENHANCEMENT ICD: F: A; RT IMAGE [id number] SNOMED CODES: A; L1L705 [id number] In cases where a pathologist has signed out the report, the service has been rendered in part by a resident. The signing pathologist has performed and is responsible for the reported pathologic evaluation. Nataliya Huerta MD LAB PATHOLOGY ORDERABLES Fin al Result [employer] from Last 3 Months or Most Recently Relevant to Health Maintenance Insurance [employer] Care Teams Preforms Laminator Relationship Specialty Start Date End Date Sonia Dumas PA [address] [place] [address] PCP - General 02/02/24
--- OUTSIDE RECORDS SUMMARY | 2024-10-13 09:33 | XMS_ITS | Encounter Summary ---
Author Organization [employer] ([place], [place], [place], [place]) Address [address] [place] [address] Care Team Providers Care Director Of Development And Marketing Name Role Phone Unavailable Primary Care Provider Unavailabl e Reason for Visit * Reason Comments Medication Refill Encounter Details Date Type Department Care Team (Late st Contact Info) Description 02/03/2024 Refill [facility] Primary Care [address] [address] Reina Olmedo, BLADDER CHANGER [address] [place] [address] Social History Tobacco Use Types [...] Date Joshua rded Speak language other than Yoruba at home Not on file 04/09/2023 Want [...]
--- OUTSIDE RECORDS SUMMARY | 2024-10-13 09:33 | XMS_ITS | Encounter Summary ---
Author Organization [employer] ([place], [place], [place], [place]) Address [address] [place] [address] Care Team Providers Care Cycle Director Name Role Phone Reina Olmedo DASHAWN Primary Care Provider +1 [phone] Encounter Details Date Type Department Care Team (Late st Contact Info) Description 08/04/2020 Transcribed Document [facility] [place] Family Medicine [address] [place] [address] ProviderVeronica MD [address] [place] [address] Social History Tobacco Use [...] Referral(s) Listed Discharge To Care Management : Home/Residential/Half-Way or Self Care -[address] AR[address] HOYT SW - 08/04/2020 11:17 EDT Final Narrative Note Final Narrative Note : Pt to dc home with family transport, and f/u outpatient with Dr. Rodrigues. No dc needs noted. ARNOLD HOYT SW - 08/04/2020 11:17 EDT Electronically signed by Deyvi [facility] Conversion Novelty Candy Maker Cerner at 07/09/2022 12:16 PM CDT documented in this encounter Plan of Treatment Not on file documented as of this encounter Visit Diagnoses Not on filedocumented in this encounter Care Teams Cycle Director Relationship Specialty Start Date End Date Reina, PREPRINT ANALYST [address] [place] [address] PCP - General Nurse Practitioner 11/14/22 10/01/23 documented as of this encounter
--- OUTSIDE RECORDS SUMMARY | 2024-10-13 09:33 | XMS_ITS | Encounter Summary ---
Author Organization [employer] ([place], [place], [place], [place]) Address [address] [place] [address] Care Team Providers Care Onsite Health Coach Name Role Phone Reina Olmedo APRN Primary Care Provider +1 [phone] Encounter Details Date Type Department Care Team (Late st Contact Info) Description 12/03/2019 Transcribed Document [facility] SHIFT COORDINATOR - [employer] [address] [facility] [address] [place] [address] Radha Rodrigues MD [address] [facility], [address] [place] [address] Social History Tobacco Use Types Packs/Day Years [...] to the recovery room in stable condition. /[id number] Radha Rodrigues MD EE/AQ / EE / MODL /[id number] documented in this encounter Plan of Treatment Not on file documented as of this encounter Visit Diagnoses Not on filedocumented in this encounter Care Teams Onsite Health Coach Relationship Specialty Start Date End Date Reina Olmedo, GLOBAL ACCOUNT DIRECTOR [address] [place] [address] PCP - General Nurse Practitioner 11/14/22 10/01/23 documented as of this encounter
--- OUTSIDE RECORDS SUMMARY | 2024-10-13 09:33 | XMS_ITS | Encounter Summary ---
Author Organization [employer] ([place], [place], [place], [place]) Address [address] [place] [address] Care Team Providers Care Flooring Grader Name Role Phone NellieReina hancock Nilsa TAMEZ Primary Care Provider [phone] [phone] Encounter Details Date Type Department Care Team (Late st Contact Info) Description 07/27/2020 Transcribed Document [facility] [place] [facility] [place] [address] ProviderVeronica MD [address] [place] [address] Social History Tobacco Use Types [...] PROCEDURE: Standard left heart catheterization technique. A 5/6-Greek sheath was placed in the right radial [...] at low cardiac risk for gynecological surgery. /[id number] Jun Hung MD SSL/AQ / SSL / MODL /[id number] CC: MD Dr. Lilia Ricardo documented in this encounter Plan of Treatment Not on file documented as of this encounter Visit Diagnoses Not on filedocumented in this encounter Care Teams Flooring Grader Relationship Specialty Start Date End Date FebReina hancock, KENNEL SUPERVISOR [address] [place] [address] PCP - General Nurse Practitioner 11/14/22 10/01/23 documented as of this encounter
--- OUTSIDE RECORDS SUMMARY | 2024-10-13 09:33 | XMS_ITS | Encounter Summary ---
Author Organization [employer] ([place], [place], [place], [place]) Address [address] [place] [address] Care Team Providers Care Funeral Attendant Name Role Phone Reina Olmedo APRN Primary Care Provider [phone] [phone] Reason for Visit * Reason Onset Date Comments Medication Refill 02/04/2023 Encounter Details Date Type Department Care Team (Late st Contact Info) Description 02/04/2023 Refill [facility] Primary Care - [address] [address] Reina Olmedo APRN [address] [place] [address] Social History Tobacco Use Types Packs/Day [...] MA - 02/04/2023 4:28 PM EST Refill ING MACHINE OPERATOR documented in this encounter Plan of Treatment Not on file documented as of this encounter Visit Diagnoses Not on filedocumented in this encounter Care Teams Funeral Attendant Relationship Specialty Start Date End Date FebReina hancock, OXIDATION ENGINEER [address] [place] [address] PCP - General Nurse Practitioner 11/14/22 10/01/23 documented as of this encounter
--- OUTSIDE RECORDS SUMMARY | 2024-10-13 09:33 | XMS_ITS | Encounter Summary ---
Author Organization [employer] ([place], [place], [place], [place]) Address [address] [place] [address] Care Team Providers Care Road Engineer Freight Name Role Phone Nelliekarissa Reina Nilsa TAMEZ Primary Care Provider +1 [phone] Encounter Details Date Type Department Care Team (Late st Contact Info) Description 08/04/2020 Transcribed Document [facility] [place] [address] [place] [address] ProviderVeronica MD [address] [place] [address] Social History Tobacco Use Types [...] and water are not available, use hand fire assistant. ? Change or remove your dressing as [...] Do not have sex. Medicines ??? Take xxlk-njk-wmaeola and prescription medicines only as told by your health care provider. ??? Ask your health care provider if the medicine prescribed to you: ? Requires you to avoid driving or using heavy machinery. ? Can cause constipation. You may need to take actions to prevent or treat constipation, such as: ? Drink enough fluid to keep your urine pale yellow. ? Take nrth-cbx-vmpipda or prescription medicines. ? Eat foods that [...] provider. Document Revised: 03/01/2019 Document Reviewed: 03/01/2019 [employer] Patient Education ? 2020 [employer] Inc. Total Laparoscopic Hysterectomy, Care After This [...] and water are not available, use hand fire assistant. ? Change your dressing as told [...] by your health care provider. ??? Take dzhx-gnn-vdqjxwe and prescription medicines only as told by [...] urine clear or pale yellow. ? Take lzrl-div-xtebggv or prescription medicines. ? Eat foods that [...] provider. Document Revised: 02/20/2018 Document Reviewed: 05/21/2017 [employer] Patient Education ? 2020 [employer]. documented in this encounter Plan of Treatment Not on file documented as of this encounter Visit Diagnoses Not on filedocumented in this encounter Care Teams Road Engineer Freight Relationship Specialty Start Date End Date Reina Olmedo, LAPPER [address] [place] [address] PCP - General Nurse Practitioner 11/14/22 10/01/23 documented as of this encounter
--- OUTSIDE RECORDS SUMMARY | 2024-10-13 09:33 | XMS_ITS | Encounter Summary ---
Author Organization [employer] ([place], [place], [place], [place]) Address [address] [place] [address] Care Team Providers Care Retirement Sales Consultant Name Role Phone Reina Olmedo ENTRY LEVEL PROJECT ENGINEER Primary Care Provider [phone] [phone] Reason for Visit * Reason Onset Date Comments Medication Refill 11/30/2022 Encounter Details Date Type Department Care Team (Late st Contact Info) Description 11/30/2022 Refill [facility] Primary Care [address] [address] Reina Olmedo, ENTRY LEVEL PROJECT ENGINEER [address] [place] [address] Social History Tobacco Use Types [...] on filedocumented in this encounter Care Teams Retirement Sales Consultant Relationship Specialty Start Date End Date Reina Olmedo ENTRY LEVEL PROJECT ENGINEER [address] [place] [address] PCP - General Nurse Practitioner 11/14/22 10/01/23 documented as of this encounter
--- OUTSIDE RECORDS SUMMARY | 2024-10-13 09:33 | XMS_ITS | Encounter Summary ---
Author Organization [employer] ([place], [place], [place], [place]) Address [address] [place] [address] Care Team Providers Care Middle School Tutor Name Role Phone Reina Olmedo HHA Primary Care Provider [phone] [phone] Reason for Visit * Reason Onset Date Comments Medication Refill 02/25/2023 Encounter Details Date Type Department Care Team (Late st Contact Info) Description 02/25/2023 Refill [facility] Primary Care [facility] [address] [place] [address] Reina Olmedo HHA [address] [place] [address] Anxiety and depression Social History [...] depression documented in this encounter Care Teams Middle School Tutor Relationship Specialty Start Date End Date Reina Olmedo APRN [address] [place] [address] PCP - General Nurse Practitioner 11/14/22 10/01/23 documented as of this encounter
--- OUTSIDE RECORDS SUMMARY | 2024-10-13 09:33 | XMS_ITS | Encounter Summary ---
Author Organization [employer] ([place], [place], [place], [place]) Address [address] [place] [address] Care Team Providers Care Radiology Nurse Name Role Phone Reina Olmedo DASHAWN Primary Care Provider [phone] [phone] Encounter Details Date Type Department Care Team (Late st Contact Info) Description 07/27/2020 Transcribed Document [facility] [place] [address] [place] [address] ProviderVeronica MD [address] [place] [address] Social History Tobacco Use Types [...] 07/27/2020 8:43 EDT Electronically signed by Deyvi [facility] Conversion Supervisor Pre Wave Cerner at 07/09/2022 12:13 PM CDT documented in this encounter Plan of Treatment Not on file documented as of this encounter Visit Diagnoses Not on filedocumented in this encounter Care Teams Radiology Nurse Relationship Specialty Start Date End Date Reina, EMBALMER APPRENTICE [address] [facility] [facility] [address] [place] [address] PCP - General Nurse Practitioner 11/14/22 10/01/23 documented as of this encounter
--- OUTSIDE RECORDS SUMMARY | 2024-10-13 09:33 | XMS_ITS | Encounter Summary ---
Author Organization [employer] ([place], [place], [place], [place]) Address [address] [place] [address] Care Team Providers Care Dispatcher Chief Coal Slurry Name Role Phone Reina Olmedo APRN Primary Care Provider [phone] [phone] Encounter Details Date Type Department Care Team (Late st Contact Info) Description 08/03/2020 Transcribed Document [facility] COFFEE BLENDER - [employer] [address] [facility] [address] [place] [address] Radha Rodrigues MD [address] [facility], [address] [place] [address] Social History Tobacco Use Types Packs/Day Years [...] PROCEDURES PERFORMED: Total laparoscopic hysterectomy, bilateral salpingectomy. ASSEMBLER FILTERS: Aidee. INDICATION FOR SURGERY: The patient is [...] recovery room in alert and stable condition. /[id number] Radha Rodrigues MD EE/AQ / EE / MODL /[id number] documented in this encounter Plan of Treatment Not on file documented as of this encounter Visit Diagnoses Not on filedocumented in this encounter Care Teams Dispatcher Chief Coal Slurry Relationship Specialty Start Date End Date Reina Olmedo, LAW ENFORCEMENT INSTRUCTOR [address] [place] [address] PCP - General Nurse Practitioner 11/14/22 10/01/23 documented as of this encounter
--- OUTSIDE RECORDS SUMMARY | 2024-10-13 09:33 | XMS_ITS | Encounter Summary ---
Author Organization [employer] ([place], [place], [place], [place]) Address [address] [place] [address] Care Team Providers Care Security Flex Officer Name Role Phone Reina Olmedo APRN Primary Care Provider [phone] [phone] Encounter Details Date Type Department Care Team (Late st Contact Info) Description 12/02/2019 Transcribed Document [facility] [place] [address] [place] [address] ProviderVeronica MD [address] [place] [address] Social History Tobacco Use Types [...] YANE REBOLLEDO/Sex: 1970 Female Med Rec #: [id number] Physician: YOU HAWTHORNE MD-OBG Financial #: [id number] Pt. Type: O Room/Bed: [facility]/ Admit/Disch: 12/02/19 11:24:00 - Institution: [facility] PreOp Case Times Entry 1 In Preop 12/02/19 11:40:00 Ready for Holding n/a Room Patient Ready for 12/02/19 13:11:00 Surgery Patient Out of Preop 12/02/19 15:14:00 Patient Out of n/a Holding Room Last Modified By: CRISTINA JUAREZ RN 12/02/19 16:00:45 [facility] PreOp Case Times Audit 12/02/19 16:00:45 Travel Journalist: YULI Modifier: [id number] <+> 1 Patient Out of Preop Finalized By: CRISTINA JUAREZ, RN Document Signatures Signed By: CRISTINA JUAREZ RN 12/02/19 16:01 documented in this encounter Plan of Treatment Not on file documented as of this encounter Visit Diagnoses Not on filedocumented in this encounter Care Teams Security Flex Officer Relationship Specialty Start Date End Date Reina Olmedo, LIVESTOCK TRADER [address] [place] [address] PCP - General Nurse Practitioner 11/14/22 10/01/23 documented as of this encounter
--- OUTSIDE RECORDS SUMMARY | 2024-10-13 09:33 | XMS_ITS | Encounter Summary ---
Author Organization [employer] ([place], [place], [place], [place]) Address [address] [place] [address] Care Team Providers Care Theater Projectionist Name Role Phone Reina Olmedo APRN Primary Care Provider [phone] [phone] Encounter Details Date Type Department Care Team (Late st Contact Info) Description 08/03/2020 Transcribed Document [facility] [place] [address] [place] [address] ProviderVeronica MD [address] [place] [address] Social History Tobacco Use Types [...] YANE REBOLLEDO/Sex: 1970 Female Med Rec #: [id number] Physician: YOU HAWTHORNE MD-OBG Financial #: [id number] Pt. Type: O Room/Bed: [facility] Admit/Disch: 08/03/20 03:59:00 - Institution: [facility] Main OR PACU Case Times Entry 1 In PACU I 08/03/20 11:29:00 Ready for PACU 08/03/20 12:34:00 Discharge Discharge from PACU 08/03/20 12:34:00 I Last Modified By: REINA SANCHEZ, LBM-YF-HQVY-OP CAR 08/03/20 12:34:23 [facility] Main OR PACU Case Times Audit 08/03/20 12:34:52 Mental Health Advanced Practice Nurse: [id number] Modifier: [id number] <+> 1 In PACU I Finalized By: REINA SANCHEZ, NPC-UI-CLCL-OP CAR Document Signatures Signed By: REINA SANCHEZ, COQ-NW-IXRE-OP CAR 08/03/20 12:34 documented in this encounter Plan of Treatment Not on file documented as of this encounter Visit Diagnoses Not on filedocumented in this encounter Care Teams Theater Projectionist Relationship Specialty Start Date End Date Reina Olmedo, HOSIERY LOOPER [address] [place] [address] PCP - General Nurse Practitioner 11/14/22 10/01/23 documented as of this encounter
--- OUTSIDE RECORDS SUMMARY | 2024-10-13 09:33 | XMS_ITS | Encounter Summary ---
Author Organization [employer] ([place], [place], [place], [place]) Address [address] [place] [address] Care Team Providers Care Business Development Coordinator Name Role Phone NellieReina hancock Nilsa TAMEZ Primary Care Provider +1 [phone] Encounter Details Date Type Department Care Team (Late st Contact Info) Description 12/02/[address] [facility] [place] Family Medicine [address] [place] [address] ProviderVeronica MD [address] [place] [address] Social History Tobacco Use Types [...] Veronica ProviderMD - 12/02/2019 4:44 PM CDT [place] [id number] YANE REBOLLEDO :1970 Visit Time:12/02/2019 What to [...] activities are safe for you. ??? Take fypv-dus-trxbvpn and prescription medicines only as told by [...] Reviewed: 10/24/2017 Elsevier Patient Education ?? 2020 [employer] Inc. Myomectomy, Care After This sheet gives [...] these instructions at home: Medicines ??? Take kfjj-eld-rfdlfrc and prescription medicines only as told by [...] and water are not available, use hand materials management clerk. ? Change your dressing as told by [...] urine clear or pale yellow. ? Take syhq-sjr-zuplcoi or prescription medicines. ? Eat foods that [...] 07/31/2011 Document Revised: 02/20/2018 Document Reviewed: 04/10/2017 [employer]Ch[employer] Patient Education ?? 2020 [employer]macare. Hysteroscopy, Care After This sheet gives you [...] taking prescription pain medicines. Medicines ??? Take miof-xsv-wptnyxe and prescription medicines only as told by [...] urine clear or pale yellow. ? Take zgsl-jkg-hcphssp or prescription medicines. ? Eat foods that [...] 12/29/2013 Document Revised: 02/20/2018 Document Reviewed: 04/08/2017 [employer] Patient Education ?? 2020 sigmacare. acetaminophen and oxycodone (a SEET a MIN [...] may report side effects to FDA at 8-752-CQI-4290. What other drugs will affect acetaminophen and [...] affect acetaminophen and oxycodone, including prescription and yytd-buf-ytnmjka medicines, vitamins, and herbal products. Not all [...] to ensure that the information provided by [employer]. ('[employer]') is accurate, up-to-date, and complete, but no guarantee is made to that effect. Drug information contained herein may be time sensitive. [employer] information has been compiled for use by healthcare practitioners and consumers in the [place] and therefore [employer] does not warrant that uses outside of the [place] are appropriate, unless specifically indicated otherwise. [employer]'s drug information does not endorse drugs, diagnose patients or recommend therapy. [employer] drug information is an informational resource designed [...] effective or appropriate for any given patient. [facility] does not assume any responsibility for any aspect of healthcare administered with the aid of information [facility] provides. The information contained herein is not intended to cover all possible uses, directions, precautions, warnings, drug interactions, allergic reactions, or adverse effects. If you have questions about the drugs you are taking, check with your doctor, nurse or pharmacist. Copyright 8506-4829 [facility]. Version: .. Revision Date: 04/14/2019. ibuprofen (EYE bue PROE fen) Advil, Genpril, IBU, Midol IB, Motrin IB, Proprinal, Smart Sense Children's Ibuprofen What is the most important information I should know about ibuprofen? Ibuprofen can increase your risk of fatal heart attack or stroke, especially if you use it buttermaker continuous churn or take high doses, or if you [...] or stroke, especially if you use it buttermaker continuous churn or take high doses, or if you [...] may report side effects to FDA at 1-718-ZMJ-3265. What other drugs will affect ibuprofen? Ask [...] may interact with ibuprofen, including prescription and spxc-klb-dhzpkpi medicines, vitamins, and herbal products. Not all [...] to ensure that the information provided by [employer]. ('[employer]') is accurate, up-to-date, and complete, but no guarantee is made to that effect. Drug information contained herein may be time sensitive. [employer] information has been compiled for use by healthcare practitioners and consumers in the [place] and therefore [employer] does not warrant that uses outside of the [place] are appropriate, unless specifically indicated otherwise. [employer] drug information does not endorse drugs, diagnose patients or recommend therapy. [employer] drug information is an informational resource designed [...] effective or appropriate for any given patient. [employer] does not assume any responsibility for any aspect of healthcare administered with the aid of information [employer] provides. The information contained herein is not intended to cover all possible uses, directions, precautions, warnings, drug interactions, allergic reactions, or adverse effects. If you have questions about the drugs you are taking, check with your doctor, nurse or pharmacist. Copyright 0434-2911 [employer]. Version: 21.. Revision Date: 04/05/2019. Emergency Awareness [...] Assistance with quitting is available by contacting 9-211-KEQX-NOW. This is a free resource providing counseling, [...] was given the opportunity to ask questions. Patient/Splicing Technician Name: Patient/Splicing Technician Signature: Relationship to Patient: Clinician/Hospital Splicing Technician Signature: Date: Electronically signed by Interface, [facility] Conversion Mail Handlers Supervisor Cerner at 07/09/2022 12:31 PM CDT documented in this encounter Plan of Treatment Not on file documented as of this encounter Visit Diagnoses Not on filedocumented in this encounter Care Teams Business Development Coordinator Relationship Specialty Start Date End Date , Reina Ash, PROTECTIVE SERVICES SOCIAL WORKER [address] [place] [address] PCP - General Nurse Practitioner 11/14/22 10/01/23 documented as of this encounter
--- OUTSIDE RECORDS SUMMARY | 2024-10-13 09:33 | XMS_ITS | Encounter Summary ---
Author Organization [employer] ([place], [place], [place], [place]) Address [address] [place] [address] Care Team Providers Care Java Web Engineer Name Role Phone Nelliekarisas Reina Nilsa TAMEZ Primary Care Provider [phone] [phone] Encounter Details Date Type Department Care Team (Late st Contact Info) Description 07/27/[address] [facility] [place] [address] [place] [address] ProviderVeronica MD [address] [place] [address] Social History Tobacco Use Types [...] Source : Stated Height Entry Format : Bowie Height, Feet : 5 ft(Converted to: 152 cm, 60 Inch) Height, Inches : 0 Inch(Converted to: 0 ft 0 Inch, 0.00 cm) Clinical Height : 152.4 cm Weight Source : Standing scale Weight Entry Format : Bowie Clinical Dosing Weight : 127.73 kg Weight, Pounds : 281 lb Body Surface Area (BSA) : 2.16 m2 Body Mass Index : 55 kg/m2 (>HHI) [place] Body Weight : 45 kg LETY WASSERMAN [...] LETY WASSERMAN RN - 07/27/2020 8:19 EDT [place] Suicide Severity Rating Scale (C-SSRS) CSSRS Past [...] Ambulatory Legal Guardian : Mother Support Person/Patient Developing Machine Operator : Yes Want Family/Rep/Phys Notified of Admit : No Emergency Contact #1 : Meryl Emergency Contact #1 Emergency Contact #1 Relationship : mother Emergency Contact #2 : n/a Emergency Contact #2 Phone Number : n/a Emergency Contact #2 Relationship : n/a Chief Complaint : L/C Information Obtained From : Patient Primary Language : Occitan Preferred Communication Mode : Verbal Communication Barrier : None Electronic Sales And Service Technician Needed : No LETY WASSERMAN RN - [...] Scale Risk Level : 0-24 Low Risk [place] Interventions : Adequate lighting, Assistive devices [...] on filedocumented in this encounter Care Teams Java Web Engineer Relationship Specialty Start Date End Date Reina Olmedo, CUSTOMER RELATIONSHIP SPECIALIST [address] [place] [address] PCP - General Nurse Practitioner 11/14/22 10/01/23 documented as of this encounter
--- OUTSIDE RECORDS SUMMARY | 2024-10-13 09:33 | XMS_ITS | Encounter Summary ---
Author Organization [employer] ([place], [place], [place], [place]) Address [address] [place] [address] Care Team Providers Care Internet Programmer Name Role Phone Reina Olmedo DASHAWN Primary Care Provider +1 [phone] Encounter Details Date Type Department Care Team (Late st Contact Info) Description 07/27/2020 Transcribed Document [facility] [place] Family Medicine [address] [place] [address] ProviderVeronica MD [address] [place] [address] Social History Tobacco Use Types [...] Associated Diagnoses: None Author: FABIENNE LU MD-BANNER Basic Information Inspector And Unloader: Rosa Jean-Baptiste MD Chief Complaint Pre-op clearance; FIGURE SKATER surgery Abnormal stress. History of Present Illness [...] Refill(s) Problem list: All Problems Arthritis / 6190419 / Confirmed Diabetes / 060980009 / Confirmed History of obstructive sleep apnea / 42272049 / Confirmed Hyperlipidemia / 05460244 / Confirmed Hypertension / 3061825224 / Confirmed Hypothyroid / 15898406 / Confirmed Anxiety and depression / 501698896 / Confirmed Histories No education data available. Social & Psychosocial Habits Alcohol 12/02/2019 Alcohol Use History, Social Habits No Substance Abuse 12/02/2019 Recreational Drug Use History No Recreational Drug Use Last 12 Months No Tobacco 06/30/2014 Tobacco Use Within Last Twelve Months No Smoking Status Former smoker Month Tobacco Last Used quit 1999 Past Medical History: Active HLD - Hyperlipidemia (875913374) HTN - Hypertension (9339270921) Type 2 diabetes mellitus (814307960) Family History: Mother Heart disease Procedure history: [...] CKD IIIb ROSIO: untreated Pre-op clearance: Abnormal FIGURE SKATER bleeding. PLAN; Left Heart Catheterization w/ possibility of PCI via right radial artery. Risks and Benefits discussed. Patient wishes to proceed. Minimize NSAIDS. IVF hydration. Hold Metformin 48 hr post cath. Discussed low carb diet (100 gram/d), portion control (30% less every dinner), Na restriction, referral to chlorination operator. Follow-up w/ ROSIO MD. Encourage pt to discuss SGLT2i (Involkana, Farxiga)/GLP1a w/ primary provider. Electronically signed by Tayler Carnes Conversion Medical Secretary Receptionist Cerner at 07/09/2022 12:25 PM CDT documented in this encounter Plan of Treatment Not on file documented as of this encounter Visit Diagnoses Not on filedocumented in this encounter Care Teams Internet Programmer Relationship Specialty Start Date End Date Reina Olmedo, BENEFITS CONSULTING ANALYST [address] [place] [address] PCP - General Nurse Practitioner 11/14/22 10/01/23 documented as of this encounter
--- OUTSIDE RECORDS SUMMARY | 2024-10-13 09:33 | XMS_ITS | Encounter Summary ---
Author Organization [employer] ([place], [place], [place], [place]) Address [address] [place] [address] Care Team Providers Care Automotive Lube Technician Name Role Phone Nelliekarissa Reina Ash APRN Primary Care Provider [phone] [phone] Encounter Details Date Type Department Care Team (Late st Contact Info) Description 08/03/2020 Transcribed Document [facility] [place] Family Medicine [address] [place] [address] ProviderVeronica MD [address] [place] [address] Social History Tobacco Use Types [...] Source : Stated Height Entry Format : [place] Height, Feet : 5 ft(Converted to: 152 cm, 60 Inch) Height, Inches : 0 Inch(Converted to: 0 ft 0 Inch, 0.00 cm) Clinical Height : 152.4 cm Weight Source : Standing scale Weight Entry Format : [place] Clinical Dosing Weight : 126.36 kg Weight, Pounds : 278 lb Body Surface Area (BSA) : 2.15 m2 Body Mass Index : 54.4 kg/m2 (>HHI) Zanoni Body Weight : 45 kg Kathe De [...] symptoms since test? : No Kathe De Souza RN - 08/03/2020 8:32 EDT Anesthesia/Transfusion History [...] De Souza RN - 08/03/2020 8:32 EDT [place] Suicide Severity Rating Scale (C-SSRS) CSSRS Past [...] Preferences Patient : Verbal explanation Kathe De Souaz RN - 08/03/2020 8:32 EDT Education Topics, Periop Preadmission Perioperative Education Grid IV's : Verbalizes understanding Kathe De Souza RN - 08/03/2020 8:32 EDT General Info Arrived From : Home Mode of Arrival on Unit : Ambulatory Patient Arrival Date/Time : 08/03/2020 7:55 EDT Support Person/Patient Plate Cutter : Yes Want Family/Rep/Phys Notified of Admit : No Emergency Contact #1 : Meryl Cervantes Emergency Contact #1 Emergency Contact #1 Relationship : mother Emergency Contact #2 : - Emergency Contact #2 Phone Number : - Emergency Contact #2 Relationship : - Information Obtained From : Patient Primary Language : Congolese Preferred Communication Mode : Verbal Communication Barrier : None Piper Helper Needed : No Kathe De Souza RN [...] filedocumented in this encounter Care Teams Automotive Lube Technician Relationship Specialty Start Date End Date Reina Olmedo, NURSE RESEARCH [address] [place] [address] PCP - General Nurse Practitioner 11/14/22 10/01/23 documented as of this encounter
--- OUTSIDE RECORDS SUMMARY | 2024-10-13 09:33 | XMS_ITS | Encounter Summary ---
Author Organization [employer] ([place], [place], [place], [place]) Address [address] [place] [address] Care Team Providers Care Director Vaccine Name Role Phone Nelliekarissa Reina Nilsa TAMEZ Primary Care Provider +1 [phone] Encounter Details Date Type Department Care Team (Late st Contact Info) Description 08/16/2020 Transcribed Document [facility] [place] Family Medicine [address] [place] [address] ProviderVeronica MD [address] [place] [address] Social History Tobacco Use Types [...] up at 8 or 8:30 a.m. Her [place] score is 7. She notes snoring continuously [...] ahead and start CPAP in the interim. /[id number] Melinda Lopez MD PAC/AQ / PAC / MODL /[id number] CC: DASHAWN Castanon MD Electronically signed by [facility], [facility] Conversion Warehouse Freight Handler Cerner at 07/09/2022 12:13 PM CDT documented in this encounter Plan of Treatment Not on file documented as of this encounter Visit Diagnoses Not on filedocumented in this encounter Care Teams Director Vaccine Relationship Specialty Start Date End Date Reina Olmedo APRN [address] [place] [address] PCP - General Nurse Practitioner 11/14/22 10/01/23 documented as of this encounter
--- OUTSIDE RECORDS SUMMARY | 2024-10-13 09:33 | XMS_ITS | Encounter Summary ---
Author Organization [employer] ([place], [place], [place], [place]) Address [address] [place] [address] Care Team Providers Care Boatbuilder Wood Name Role Phone Nelliekarissa Reina Nilsa TAMEZ Primary Care Provider [phone] [phone] Encounter Details Date Type Department Care Team (Late st Contact Info) Description 12/02/2019 Transcribed Document [facility] [place] Family Medicine [address] [place] [address] ProviderVeronica MD [address] [place] [address] Social History Tobacco Use Types [...] Source : Stated Height Entry Format : [place] Height, Feet : 5 ft(Converted to: 152 cm, 60 Inch) Height, Inches : 0 Inch(Converted to: 0 ft 0 Inch, 0.00 cm) Clinical Height : 152.4 cm Weight Source : Standing scale Weight Entry Format : [place] Clinical Dosing Weight : 127.73 kg Weight, Pounds : 281 lb Body Surface Area (BSA) : 2.16 m2 Body Mass Index : 55 kg/m2 (>HHI) Noble Body Weight : 45 kg CLINTON CASTAÑEDA [...] CLINTON CASTAÑEDA RN - 12/02/2019 12:59 EDT [place] Suicide Severity Rating Scale (C-SSRS) CSSRS Past [...] Any Spiritual/Cultural Needs or Requests : No CLINTON CASTAÑEDA RN - 12/02/2019 12:59 EDT Teaching/Learning [...] #2 Relationship : . Primary Language : [place] Preferred Communication Mode : Verbal Communication Barrier : None Control Clerk Needed : CLINTON Vaca RN - 12/02/2019 [...] Scale Risk Level : 25-45 Medium Risk Mahanoy Plane Fall Interventions : Adequate lighting, Bed in [...] the text rendition version of the form. Jamul Coma Neal Best Motor Response : Obey commands Jamul Best Verbal Response : Oriented Jamul Eye Opening Response : Spontaneous Jamul Coma Score : 15 CLINTON CASTAÑEDA, RN - 12/02/2019 12:59 EDT Electronically signed by [facility], [facility] Conversion Airborne Operations Manager Cerner at 07/09/2022 12:14 PM CDT documented in this encounter Plan of Treatment Not on file documented as of this encounter Visit Diagnoses Not on filedocumented in this encounter Care Teams Boatbuilder Wood Relationship Specialty Start Date End Date Reina Olmedo, OIL WELL DRILLING MANAGER [address] [place] [address] PCP - General Nurse Practitioner 11/14/22 10/01/23 documented as of this encounter
--- OUTSIDE RECORDS SUMMARY | 2024-10-13 09:33 | XMS_ITS | Clinical Summary ---
Author Organization [employer] ([place], [place], [place], [place]) Address [address] [place] [address] Care Team Providers Care Typewriter Aligner Name Role Phone Unavailable Primary Care Provider Unavailabl e Allergies Active Allergy Reactions Criticality Noted Date Comments Egg Hives,Itching,Rash High 01/06/2023 Green Gonzalez Hives,Itching,Rash High 01/06/2023 Hazelnut Hives,Itching,Rash High 01/06/2023 House Dust Mite 01/06/2023 Milk Hives,Itching,Rash High 01/06/2023 Mold Hives,Itching,Rash High 01/06/2023 Peanut Hives,Itching,Rash High 01/06/2023 Tomato Hives,Itching,Rash High 01/06/2023 Tree Pollen Hives,Itching,Rash High 01/06/2023 Vineyard Haven Hives,Itching,Rash High 01/06/2023 Medications aspirin 81 MG [...] mRNA (PF)(LNP-S BIV ALENT) (Perez Cap) 12YR+ (PFIZER)([id number] 12/27/2022 Covid-19 Vaccine MRNA (PF) 1 2yr+ (Pfizer/ThermogenicsNTYoubetme)([id number]) 01/26/2021,07/25/2020,06/29/2020 Covid-19 Vaccine MRNA(PF,Premixed)12YR+ (Pfizer/ThermogenicsNTYoubetme)([id number]) 08/09/2021 Hepatitis A Adult 08/07/2018,01/06/2018 Influenza Four-QIV [...] Date Joshua rded Speak language other than Polish at home Not on file 04/09/2023 Want [...] - 08/05/2023 10:08 AM EDT Performed at: [facility] [address] [id number] Call Center Supervisor: Clive Martinez PhD, Phone: [phone] Reina Olmedo BIRD RAISER LAB BLOOD ORDERABLES Becky l Result Performing Organization Address [facility] Co de Phone Number [facility] * (ABNORMAL) Lipid panel (08/04/2023 2:21 PM EDT) [facility] Cholesterol, Total 153 100 - 199 mg/dL [facility] Triglycerides 236(H) 0 - 149 mg/dL [facility] HDL Cholesterol 46 >39 mg/dL [facility] VLDL Cholesterol Lopez 38 5 - 40 mg/dL [facility] LDL Calculated 69 0 - 99 mg/dL [facility] Blood 08/04/2023 2:21 PM EDT 08/04/2023 Narrative [facility] - 08/05/2023 10:08 AM EDT Performed at: 01 - [facility] [address] [id number] Call Center Supervisor: Clive Martinez PhD, Phone: [phone] Reina Olmedo APRN LAB BLOOD ORDERABLES Becky l Result Performing Organization Address [facility] de Phone Number [facility] * HM MAMMOGRAPHY (11/11/2018) Anatomical Region Laterality Modality Other Historical Provider HEALTH MAINTENANCE Final Result from Last 3 Months or Most Recently Relevant to Health Maintenance Insurance [place] [phone]
--- OUTSIDE RECORDS SUMMARY | 2024-10-13 09:33 | XMS_ITS | Encounter Summary ---
Author Organization [employer] ([place], [place], [place], [place]) Address [address] [place] [address] Care Team Providers Care Developmental Writing Instructor Name Role Phone Reina Olmedo APRN Primary Care Provider [phone] [phone] Encounter Details Date Type Department Care Team (Late st Contact Info) Description 08/03/2020 Transcribed Document [facility] [place] [address] [place] [address] ProviderVeronica MD [address] [place] [address] Social History Tobacco Use Types [...] Finalized Date/Time: 08/03/20 12:23:55 Pt. Name: YANE REBOLELDO/Sex: 1970 Female Med Rec #: [id number] Physician: YOU HAWTHORNE MD-OBG Financial #: [id number] Pt. Type: O Room/Bed: [facility] Admit/Disch: 08/03/20 03:59:00 - Institution: [facility] PreOp Case Times Entry 1 In Preop 08/03/20 07:55:00 Ready for Holding 08/03/20 08:51:00 Room Patient Ready for 08/03/20 08:51:00 Surgery Patient Out of Preop 08/03/20 09:38:00 Patient Out of n/a Holding Room Last Modified By: CLINTON CASTAÑEDA RN 08/03/20 12:23:54 [facility] PreOp Case Times Audit 08/03/20 12:23:54 Equipment Engineering Technician: IESHA Modifier: YULI <+> 1 Patient Out of Preop Finalized By: CLINTON CASTAÑEDA, RN Document Signatures Signed By: CLINTON CASTAÑEDA RN 08/03/20 12:23 documented in this encounter Plan of Treatment Not on file documented as of this encounter Visit Diagnoses Not on filedocumented in this encounter Care Teams Developmental Writing Instructor Relationship Specialty Start Date End Date Reina Olmedo, DOCKING SAW OPERATOR [address] [place] [address] PCP - General Nurse Practitioner 11/14/22 10/01/23 documented as of this encounter
--- OUTSIDE RECORDS SUMMARY | 2024-10-13 09:33 | XMS_ITS | Encounter Summary ---
Author Organization [employer] ([place], [place], [place], [place]) Address [address] [place] [address] Care Team Providers Care High School Teacher Name Role Phone Reina Olmedo Nilsa TAMEZ Primary Care Provider [phone] -[phone] Encounter Details Date Type Department Care Team (Late st Contact Info) Description 07/27/2020 Transcribed Document [facility] [place] [address] [place] [address] ProviderVeronica MD [address] [place] [address] Social History Tobacco Use Types [...] 07/27/2020 12:51 EDT Electronically signed by Deyvi [facility] Conversion Energy Audit Advisor Cerner at 07/09/2022 12:13 PM CDT documented in this encounter Plan of Treatment Not on file documented as of this encounter Visit Diagnoses Not on filedocumented in this encounter Care Teams High School Teacher Relationship Specialty Start Date End Date Reina Olmedo, CATTLE RANCHER [address] [place] [address] PCP - General Nurse Practitioner 11/14/22 10/01/23 documented as of this encounter
--- OUTSIDE RECORDS SUMMARY | 2024-10-13 09:33 | XMS_ITS | Encounter Summary ---
Author Organization [employer] ([place], [place], [place], [place]) Address [address] [place] [address] Care Team Providers Care Welding Machine Operator Electroslag Name Role Phone NellieReina hancock Nilsa TAMEZ Primary Care Provider +1 -[phone] Encounter Details Date Type Department Care Team (Late st Contact Info) Description 07/27/2020 Transcribed Document [facility] [place] [address] [place] [address] ProviderVeronica MD [address] [place] [address] Social History Tobacco Use Types [...] 07/27/2020 13:07 EDT Electronically signed by Deyvi [facility] Conversion Slip Cover Maker Cerner at 07/09/2022 12:17 PM CDT documented in this encounter Plan of Treatment Not on file documented as of this encounter Visit Diagnoses Not on filedocumented in this encounter Care Teams Welding Machine Operator Electroslag Relationship Specialty Start Date End Date Reina, MORTGAGE ORIGINATOR [address] [place] [address] PCP - General Nurse Practitioner 11/14/22 10/01/23 documented as of this encounter
--- OUTSIDE RECORDS SUMMARY | 2024-10-13 09:33 | XMS_ITS | Encounter Summary ---
Author Organization [employer] ([place], [place], [place], [place]) Address [address] [place] [address] Care Team Providers Care Travel Registered Nurse Icu Name Role Phone Reina Olmedo DASHAWN Primary Care Provider [phone] -[phone] Encounter Details Date Type Department Care Team (Late st Contact Info) Description 07/27/2020 Transcribed Document [facility] [place] [address] [place] [address] ProviderVeronica MD [address] [place] [address] Social History Tobacco Use Types [...] Veronica ProviderMD - 07/27/2020 2:48 PM CDT [facility] [place] [address] YANE REBOLLEDO :1970 Visit Time:07/27/2020 Your Visit Summary Your Care Team Admitting Physician - FABIENNE LU MD-CAR Attending Physician - FABIENNE LU MD-CAR Primary Care Physician - WILL BRIDGES, -[facility] Referring Physician - FABIENNE LU MD-CAR Your [...] weeks Comments Follow-up as instructed Where: [address] [facility] [address] [place] [address]- Medications What How Much When Instructions Next [...] to thoroughly wash your hands, use hand inspector set up and lay out. While handwashing is best, hand inspector set up and lay out helps to reduce the spread of germs when you are out and about. Have hand inspector set up and lay out in several locations so you can always [...] keep people from also getting sick. Don???t [place] It! Sneezing this time of year is [...] different for every person. A diet and older adult social work specialist (registered dietitian) can help you make [...] of carbohydrates: ? hamburger bun or ?? Ukrainian muffin. ? oz (15 mL) syrup. ? [...] foods that contain carbohydrates: ??? Rice. ??? [place]. ??? Milk. ??? Strawberries. 2. Calculate how [...] manage your diabetes. ??? A diet and older adult social work specialist (registered dietitian) can help you make a meal plan and calculate how many carbohydrates you should have at each meal and snack. This information is not intended to replace advice given to you by your health care provider. Make sure you discuss any questions you have with your health care provider. Document Revised: 10/02/2017 Document Reviewed: 08/21/2016 [employer] Patient Education ?? 2020 [employer] Diabetes Mellitus and Nutrition, Adult When [...] that you work with a diet and older adult social work specialist (dietitian) to make a meal plan [...] glucose? Where to find more information: ??? [place] Diabetes Association: diabetes.org ??? Academy of Nutrition and Dietetics: www.eatright.org ??? National [place] of Diabetes and Digestive and Kidney Diseases (NIH): www.niddk.nih.gov Summary ??? A healthy meal plan will help you control your blood glucose and maintain a healthy lifestyle. ??? Working with a diet and older adult social work specialist (dietitian) can help you make a [...] provider. Document Revised: 02/20/2018 Document Reviewed: 04/14/2017 [employer] Patient Education ?? 2020 [employer] Coronary Angiogram A coronary angiogram is [...] including vitamins, herbs, eye drops, creams, and zcpy-cns-cpjvoxb medicines. ??? Any problems you or family [...] do not normally take it. ??? Taking pmmf-jxg-krdqpdl medicines, vitamins, herbs, and supplements. General instructions [...] provider. Document Revised: 09/30/2019 Document Reviewed: 09/30/2019 [employer] Patient Education ?? 2020 [employer] Moderate Conscious Sedation, Adult, Care After [...] you are awake and alert. ??? Take czzl-owf-dyhxyrc and prescription medicines only as told by [...] provider. Document Revised: 02/20/2018 Document Reviewed: 06/29/2016 [employer] Patient Education ?? 2020 [employer]. Radial Site Care This sheet gives you [...] these instructions at home: Medicines ??? Take zgbr-qeq-alqiqtf and prescription medicines only as told by your health care provider. Insertion site care ??? Follow instructions from your health care provider about how to take care of your insertion site. Make sure you: ? Wash your hands with soap and water before you change your bandage (dressing). If soap and water are not available, use hand inspector set up and lay out. ? Change your dressing as told by [...] provider. Document Revised: 04/15/2018 Document Reviewed: 04/15/2018 [employer] Patient Education ?? 2020 [employer] Transradial Angiogram A transradial angiogram is [...] including vitamins, herbs, eye drops, creams, and knbc-jua-lrpjdca medicines. ??? Any problems you or family [...] tells you to take them. ??? Taking ajxf-zim-fkivwqe medicines, vitamins, herbs, and supplements. Exams and [...] provider. Document Revised: 02/01/2019 Document Reviewed: 02/01/2019 [employer] Patient Education ?? 2020 [employer] Emergency Awareness and Preventative Care STROKE [...] Assistance with quitting is available by contacting 6-090-AOQQNOW. This is a free resource providing counseling, [...] was given the opportunity to ask questions. Patient/Insurance Follow Up Representative Name: Patient/Insurance Follow Up Representative Signature: Relationship to Patient: Clinician/Hospital Insurance Follow Up Representative Signature: Date: documented in this encounter Plan of Treatment Not on file documented as of this encounter Visit Diagnoses Not on filedocumented in this encounter Care Teams Travel Registered Nurse Icu Relationship Specialty Start Date End Date Reina, OUTREACH CLINICIAN [address] [place] [address] PCP - General Nurse Practitioner 11/14/22 10/01/23 documented as of this encounter
--- OUTSIDE RECORDS SUMMARY | 2024-10-13 09:33 | XMS_ITS | Encounter Summary ---
Author Organization [employer] ([place], [place], [place], [place]) Address [address] [place] [address] Care Team Providers Care Saw Operator Name Role Phone Reina Olmedo APRN Primary Care Provider [phone] [phone] Encounter Details Date Type Department Care Team (Late st Contact Info) Description 12/02/2019 Transcribed Document [facility] [place] [address] [place] [address] ProviderVeronica MD [address] [place] [address] Social History Tobacco Use Types [...] YANE REBOLLEDO/Sex: 1970 Female Med Rec #: [id number] Physician: YOU HAWTHORNE MD-OBG Financial #: [id number] Pt. Type: O Room/Bed: [facility]/ Admit/Disch: 12/02/19 11:24:00 - Institution: [facility] [place] PACU Case Times Entry 1 In PACU I 12/02/19 16:13:00 Ready for PACU 12/02/19 17:05:00 Discharge Discharge from PACU 12/02/19 17:05:00 I Last Modified By: Helen Francis RN 12/02/19 17:09:16 [facility] [place] PACU Case Times Audit 12/02/19 17:09:16 Research Spec: SXPOWERS Modifier: SXPOWERS <+> 1 Ready for PACU Discharge <+> 1 Discharge from PACU I Finalized By: Helen Francis, RN Document Signatures Signed By: Helen Francis RN 12/02/19 17:09 Electronically signed by Tayler Carnes Conversion Oil Well Service Operator Helper Cerner at 07/09/2022 12:31 PM CDT documented in this encounter Plan of Treatment Not on file documented as of this encounter Visit Diagnoses Not on filedocumented in this encounter Care Teams Saw Operator Relationship Specialty Start Date End Date Reina Olmedo, GARBAGE TRUCK DRIVER [address] [place] [address] PCP - General Nurse Practitioner 11/14/22 10/01/23 documented as of this encounter
--- OUTSIDE RECORDS SUMMARY | 2024-10-13 09:33 | XMS_ITS | Encounter Summary ---
Author Organization [employer] ([place], [place], [place], [place]) Address [address] [place] [address] Care Team Providers Care Stogy Roller Name Role Phone Nelliekarissa Reina Nilsa TAMEZ Primary Care Provider +1 -[phone] Encounter Details Date Type Department Care Team (Late st Contact Info) Description 11/08/2020 Transcribed Document [facility] [place] [address] [place] [address] ProviderVeronica MD [address] [place] [address] Social History Tobacco Use Types [...] 84. Artifact was present at intervals. 7. Mixh-er-vvcefxtg snoring was present. IMPRESSION: Moderate obstructive sleep apnea. PLAN: The patient is scheduled to return to clinic to review data and treatment options. In the interim, she will be offered a trial of auto CPAP at 6-20 cm. /[id number] Melinda Lopez MD PAC/AQ / PAC / MODL /[id number] Electronically signed by Deyvi [facility] Conversion Pocket Machine Operator Cerner at 07/09/2022 12:17 PM CDT documented in this encounter Plan of Treatment Not on file documented as of this encounter Visit Diagnoses Not on filedocumented in this encounter Care Teams Stogy Roller Relationship Specialty Start Date End Date Reina Olmedo, TAPPET ADJUSTER [address] [place] [address] PCP - General Nurse Practitioner 11/14/22 10/01/23 documented as of this encounter
--- OUTSIDE RECORDS SUMMARY | 2024-10-13 09:33 | XMS_ITS | Encounter Summary ---
Author Organization [employer] ([place], [place], [place], [place]) Address [address] [place] [address] Care Team Providers Care Bottom Buffer Name Role Phone Reina Olmedo DASHAWN Primary Care Provider [phone] [phone] Encounter Details Date Type Department Care Team (Late st Contact Info) Description 07/27/2020 Transcribed Document [facility] [place] [facility] [place] [address] [place] [address] ProviderVeronica MD [address] [place] [address] Social History Tobacco Use Types Packs/Day Years Used Date Smoking Tobacco: Never Assessed Comments Unknown Sex and Gender Information Value Date Recorded Sex Assigned at Not on file Legal Sex Female 4:58 PM CDT Gender Identity Not on file Sexual Orientation Not on file documented as of this encounter Miscellaneous Notes * Cerner Conversion Note - Vreonica ProviderMD - 07/27/2020 2:50 PM CDT [facility] [place] [address] YANE REBOLLEDO :1970 Visit Time:07/27/2020 Your Visit Summary Your Care Team Admitting Physician - FABIENNE LU MD-CAR Attending Physician - FABIENNE LU MD-CAR Primary Care Physician - WILL BRIDGES, -[facility] Referring Physician - FABIENNE LU MD-CAR [...] weeks Comments Follow-up as instructed Where: [address] [place] [address]- Medications What How Much When Instructions Next [...] to thoroughly wash your hands, use hand soap chipper. While handwashing is best, hand soap chipper helps to reduce the spread of germs when you are out and about. Have hand soap chipper in several locations so you can always [...] keep people from also getting sick. Don???t [place] It! Sneezing this time of year is [...] different for every person. A diet and nutrition services worker (registered dietitian) can help you make a [...] foods that contain carbohydrates: ??? Rice. ??? Orchard. ??? Milk. ??? Strawberries. 2. Calculate how [...] manage your diabetes. ??? A diet and nutrition services worker (registered dietitian) can help you make a meal plan and calculate how many carbohydrates you should have at each meal and snack. This information is not intended to replace advice given to you by your health care provider. Make sure you discuss any questions you have with your health care provider. Document Revised: 10/02/2017 Document Reviewed: 08/21/2016 [employer] Patient Education ?? 2020 [employer] Inc. Diabetes Mellitus and Nutrition, Adult When [...] that you work with a diet and nutrition services worker (dietitian) to make a meal plan that [...] provider. ??? Work with a counselor or perinatal educator to identify strategies to manage stress and any emotional and social challenges. Questions to ask a health care provider ??? Do I need to meet with a perinatal educator? Do I need to meet with a dietitian? What number can I call if I have questions? When are the best times to check my blood glucose? Where to find more information: ??? [place] Diabetes Association: diabetes.org ??? Academy of Nutrition and Dietetics: www.eatright.org ??? National Conception of Diabetes and Digestive and Kidney Diseases (NIH): www.niddk.nih.gov Summary ??? A healthy meal plan will help you control your blood glucose and maintain a healthy lifestyle. ??? Working with a diet and nutrition services worker (dietitian) can help you make a meal [...] provider. Document Revised: 02/20/2018 Document Reviewed: 04/14/2017 [employer] Patient Education ?? 2020 [employer] Inc. Coronary Angiogram A coronary angiogram is [...] including vitamins, herbs, eye drops, creams, and lske-fun-ryhczsa medicines. ??? Any problems you or family [...] do not normally take it. ??? Taking xfvo-nnn-abojhjk medicines, vitamins, herbs, and supplements. General instructions [...] provider. Document Revised: 09/30/2019 Document Reviewed: 09/30/2019 [employer] Patient Education ?? 2020 [employer] Inc. Moderate Conscious Sedation, Adult, Care After [...] you are awake and alert. ??? Take rfxc-zdu-naatqdl and prescription medicines only as told by [...] provider. Document Revised: 02/20/2018 Document Reviewed: 06/29/2016 [employer] Patient Education ?? 2020 [employer]. Radial Site Care This sheet gives you [...] these instructions at home: Medicines ??? Take vfyg-sef-nkrqngc and prescription medicines only as told by your health care provider. Insertion site care ??? Follow instructions from your health care provider about how to take care of your insertion site. Make sure you: ? Wash your hands with soap and water before you change your bandage (dressing). If soap and water are not available, use hand soap chipper. ? Change your dressing as told by [...] provider. Document Revised: 04/15/2018 Document Reviewed: 04/15/2018 [employer] Patient Education ?? 2020 [employer] Inc. Transradial Angiogram A transradial angiogram is [...] including vitamins, herbs, eye drops, creams, and bnma-syp-fcaujiu medicines. ??? Any problems you or family [...] tells you to take them. ??? Taking giyu-rho-ncdjegz medicines, vitamins, herbs, and supplements. Exams and [...] provider. Document Revised: 02/01/2019 Document Reviewed: 02/01/2019 E[employer] Patient Education ?? 2020 [employer] Inc. Emergency Awareness and Preventative Care STROKE [...] Assistance with quitting is available by contacting 7-694-FOSPNOW. This is a free resource providing counseling, [...] was given the opportunity to ask questions. Patient/Film Booker Name: Patient/Film Booker Signature: Relationship to Patient: Clinician/Hospital Film Booker Signature: Date: documented in this encounter Plan of Treatment Not on file documented as of this encounter Visit Diagnoses Not on filedocumented in this encounter Care Teams Bottom Buffer Relationship Specialty Start Date End Date Reina, COASTAL TUG MATE [address] [place] [address] PCP - General Nurse Practitioner 11/14/22 10/01/23 documented as of this encounter
--- OUTSIDE RECORDS SUMMARY | 2024-10-13 09:33 | XMS_ITS | Encounter Summary ---
Author Organization [employer] ([place], [place], [place], [place]) Address [address] [place] [address] Care Team Providers Care Senior Financial Accountant Name Role Phone Reina Olmedo APRN Primary Care Provider [phone] Encounter Details Date Type Department Care Team (Late st Contact Info) Description 12/02/2019 Transcribed Document [facility] [place] [address] [place] [address] ProviderVeronica MD [address] [place] [address] Social History Tobacco Use Types [...] ANGÉLICA REBOLLEDO/Sex: 1970 Female Med Rec #: [id number] Physician: YOU HAWTHORNE MD-OBG Financial #: [id number] Pt. Type: O Room/Bed: [facility]/ Admit/Disch: 12/02/19 11:24:00 - Institution: [facility] IntraOp Case Attendance Entry 1 Entry 2 Entry 3 Case Attendee YOU HAWTHORNE Holliday, Stewart R, RN ANTONIO CABRERA, LIZZ BECERRA-OBG Role Performed Surgeon/Proceduralist, Machine Operator General, First CRINKLING MACHINE OPERATOR/Nurse Assisted Living Assistant First Time In 12/02/19 15:17:00 12/02/19 15:17:00 12/02/19 15:17:00 Time Out 12/02/19 16:14:00 12/02/19 16:14:00 12/02/19 15:46:00 Procedure Myomectomy Hysteroscopic Myomectomy Hysteroscopic Myomectomy Hysteroscopic Other Attendee Superficial Wound Closed By: Last Modified By: Foster Avilez, RN Foster Avilez, RN Foster Avilez, JASSON 12/02/19 16:14:35 12/02/19 16:14:35 12/02/19 16:14:35 Entry 4 Entry 5 Case Attendee ADRIÁN GOMEZ ST BROWNING, JANICE R, LOT BOSS-ANS Role Performed Scrub, First CRINKLING MACHINE OPERATOR/Nurse Assisted Living Assistant Time In 12/02/19 15:17:00 12/02/19 15:46:00 Time Out 12/02/19 16:14:00 12/02/19 16:14:00 Procedure Myomectomy Hysteroscopic Myomectomy Hysteroscopic Other Attendee Superficial Wound Closed By: Last Modified By: Foster Avilez RN Holliday, Stewart R, JASSON 12/02/19 16:14:35 12/02/19 16:14:35 E IntraOp Case Attendance Audit 12/02/19 16:14:35 Repair Mechanic: JERONIMO Modifier: JERONIMO 1 <+> Time Out 1 <*> Procedure Myomectomy Hysteroscopic 2 <+> Time Out 2 <*> Procedure Myomectomy Hysteroscopic 3 <*> Procedure Myomectomy Hysteroscopic 4 <+> Time Out 4 <*> Procedure Myomectomy Hysteroscopic 5 <+> Time Out 5 <*> Procedure Myomectomy Hysteroscopic 12/02/19 15:49:20 Repair Mechanic: JERONIMO Modifier: STEFANYR 1 <+> Time In 1 <*> Procedure Myomectomy Hysteroscopic 2 <+> Time In 2 <*> Procedure Myomectomy Hysteroscopic 3 <+> Time In 3 <+> Time Out 3 <*> Procedure Myomectomy Hysteroscopic 4 <+> Time In 4 <*> Procedure Myomectomy Hysteroscopic <+> 5 Case Attendee <+> 5 Role Performed <+> 5 Time In <+> 5 Procedure 12/02/19 15:11:56 Repair Mechanic: WALTERIDSR Modifier: HOLLIDSR 3 <+> Case Attendee [...] [facility] Intra[facility] Case Times Audit 12/02/19 16:14:34 Repair Mechanic: WALTERIDSR Modifier: HOLLIDSR <+> 1 Out Room Time <+> 1 Stop Time 12/02/19 16:04:01 Repair Mechanic: WALTERIDSR Modifier: HOLLIDSR <+> 1 Stop Time 12/02/19 15:39:00 Repair Mechanic: WALTERIDSR Modifier: HOLLIDSR <+> 1 Start Time [...] IntraOp Departure from OR Audit 12/02/19 15:11:36 Repair Mechanic: JERONIMO Modifier: JERONIMO <+> 1 Transfer to <+> 1 Handoff Method [facility] Intra[facility] Fire Risk Assessment Entry 1 Fire Info Surgical Site or 0- No Incision Above the Xyphoid Open O2 Source 0- No (Mask or Cannula) Available Ignition 0- No (ESU, Laser, Light Source) Fire Risk 0 Assessment Score Fire Score Fire Risk Yes Assessment Complete Fire Risk Foster Avilez delinquent account clerk Verified By Fire Risk 12/02/19 15:09:00 Assessment Verified Date/Time Fire Risk Last Modified By: Foster Avilez RN 12/02/19 15:09:44 [facility] IntraOp General Case Farmworker Dairy 1 Case Information OR OR 07 [facility] Case Level 1 Room Verified Yes Wound Class II - Clean-Contaminated Specialty SN Gynecology Anesthesia Type General ASA Class 3 Diagnosis Preop Diagnosis AUB Postop Diagnosis refer to MD notes Last Modified By: Foster Avilez RN 12/02/19 15:28:51 [facility] IntraOp General Case Data Audit 12/02/19 15:28:51 Repair Mechanic: JERONIMO Modifier: WALTERIDSR <+> 1 Room Verified 12/02/19 15:28:47 Repair Mechanic: JERONIMO Modifier: WALTERIDSR <+> 1 ASA Class [...] Entry 1 Medication/Irrigant Monsels 500ml solution - [id number] Dose Administered By YOU HAWTHORNE MD-OBG Procedure [...] Intra Op Sign Out Audit 12/02/19 16:14:49 Repair Mechanic: STEFANYR Modifier: HOLLIDSR <+> 1 RN Sign [...] [facility] IntraOp Surgical Procedures Audit 12/02/19 16:04:02 Repair Mechanic: JERONIMO Modifier: WALTERIDSR <+> 1 Stop [facility] [...] Signed By: Foster Avilez RN 12/02/19 16:14 documented in this encounter Plan of Treatment Not on file documented as of this encounter Visit Diagnoses Not on filedocumented in this encounter Care Teams Senior Financial Accountant Relationship Specialty Start Date End Date Reina Olmedo, LOT BOSS [address] [place] [address] PCP - General Nurse Practitioner 11/14/22 10/01/23 documented as of this encounter
--- OUTSIDE RECORDS SUMMARY | 2024-10-13 09:33 | XMS_ITS | Encounter Summary ---
Author Organization [employer] ([place], [place], [place], [place]) Address [address] [place] [address] Care Team Providers Care Supervisor Model Making Name Role Phone NellieReina hancock Nilsa TAMEZ Primary Care Provider [phone] Encounter Details Date Type Department Care Team (Late st Contact Info) Description 12/02/2019 Transcribed Document [facility] [place] [address] [place] [address] ProviderVeronica MD [address] [place] [address] Social History Tobacco Use Types [...] Veronica ProviderMD - 12/02/2019 4:45 PM CDT [place] [id number] YANE REBOLLDEO :1970 Visit Time:12/02/2019 What to do next [...] activities are safe for you. ??? Take mqsn-nqh-pfnxgbo and prescription medicines only as told by [...] Reviewed: 10/24/2017 Elsevier Patient Education ?? 2020 [employer]. Myomectomy, Care After This sheet gives [...] these instructions at home: Medicines ??? Take xmwa-gri-xsqbpfm and prescription medicines only as told by [...] and water are not available, use hand banquet cook. ? Change your dressing as told by [...] urine clear or pale yellow. ? Take uaul-zwl-okdrwiu or prescription medicines. ? Eat foods that [...] 07/31/2011 Document Revised: 02/20/2018 Document Reviewed: 04/10/2017 [employer] Patient Education ?? 2020 [employer]. Hysteroscopy, Care After This sheet gives you [...] taking prescription pain medicines. Medicines ??? Take rqgj-iso-gpkaeez and prescription medicines only as told by [...] urine clear or pale yellow. ? Take xqqh-qvf-mstprrs or prescription medicines. ? Eat foods that [...] 12/29/2013 Document Revised: 02/20/2018 Document Reviewed: 04/08/2017 [employer] Patient Education ?? 2020 [employer]. acetaminophen and oxycodone (a SEET a MIN [...] may report side effects to FDA at 3-157-KSG-7385. What other drugs will affect acetaminophen and [...] affect acetaminophen and oxycodone, including prescription and wlpj-sqt-juipwbs medicines, vitamins, and herbal products. Not all [...] to ensure that the information provided by [employer]. ('[employer]') is accurate, up-to-date, and complete, but no guarantee is made to that effect. Drug information contained herein may be time sensitive. [employer] information has been compiled for use by healthcare practitioners and consumers in the [place] and therefore [employer] does not warrant that uses outside of the [place] are appropriate, unless specifically indicated otherwise. [employer]'s drug information does not endorse drugs, diagnose patients or recommend therapy. [employer] drug information is an informational resource designed [...] effective or appropriate for any given patient. [facility] does not assume any responsibility for any aspect of healthcare administered with the aid of information [facility] provides. The information contained herein is not intended to cover all possible uses, directions, precautions, warnings, drug interactions, allergic reactions, or adverse effects. If you have questions about the drugs you are taking, check with your doctor, nurse or pharmacist. Copyright 8661-0610 [facility]. Version: .. Revision Date: 04/14/2019. ibuprofen (EYE bue PROE fen) Advil, Genpril, IBU, Midol IB, Motrin IB, Proprinal, Smart Sense Children's Ibuprofen What is the most important information I should know about ibuprofen? Ibuprofen can increase your risk of fatal heart attack or stroke, especially if you use it buttermaker or take high doses, or if you [...] stroke, especially if you use it buttermaker or take high doses, or if you [...] may report side effects to FDA at 3-395-WMT-6656. What other drugs will affect ibuprofen? Ask [...] may interact with ibuprofen, including prescription and ulbi-dxf-wieyzvb medicines, vitamins, and herbal products. Not all [...] to ensure that the information provided by [employer]. ('[employer]') is accurate, up-to-date, and complete, but no guarantee is made to that effect. Drug information contained herein may be time sensitive. [employer] information has been compiled for use by healthcare practitioners and consumers in the [place] and therefore [employer] does not warrant that uses outside of the [place] are appropriate, unless specifically indicated otherwise. [employer] drug information does not endorse drugs, diagnose patients or recommend therapy. [employer] drug information is an informational resource designed [...] effective or appropriate for any given patient. [employer] does not assume any responsibility for any aspect of healthcare administered with the aid of information [employer] provides. The information contained herein is not intended to cover all possible uses, directions, precautions, warnings, drug interactions, allergic reactions, or adverse effects. If you have questions about the drugs you are taking, check with your doctor, nurse or pharmacist. Copyright 3497-9921 [employer]. Version: 21.. Revision Date: 04/05/2019. Emergency Awareness [...] Assistance with quitting is available by contacting 2-410-FBXA-NOW. This is a free resource providing counseling, [...] was given the opportunity to ask questions. Patient/Water Chemist Name: Patient/Water Chemist Signature: Relationship to Patient: Clinician/Hospital Water Chemist Signature: Date: Electronically signed by Interface, [facility] Conversion Veneer Trimmer Cerner at 07/09/2022 12:14 PM CDT documented in this encounter Plan of Treatment Not on file documented as of this encounter Visit Diagnoses Not on filedocumented in this encounter Care Teams Supervisor Model Making Relationship Specialty Start Date End Date , Reina Ash, OPTOMECHANICAL ENGINEER [address] [place] [address] PCP - General Nurse Practitioner 11/14/22 10/01/23 documented as of this encounter
--- OUTSIDE RECORDS SUMMARY | 2024-10-13 09:33 | XMS_ITS | Encounter Summary ---
Author Organization [employer] ([place], [place], [place], [place]) Address [address] [place] [address] Care Team Providers Care Window Shade Ring Coverer Name Role Phone NellieReina hancock Nilsa TAMEZ Primary Care Provider [phone] Encounter Details Date Type Department Care Team (Late st Contact Info) Description 08/03/2020 Transcribed Document [facility] [place] Family Medicine [address] [place] [address] ProviderVeronica MD [address] [place] [address] Social History Tobacco Use Types [...] On: 08/03/2020 12:56 EDT by Dennis Gamino, Analyst Market Intelligence Cert Meds to Bed Enrollment Patient Enrollment Decision: : Yes/enroll in meds to bed program Meds to Beds Comment : Dennis Bernal, Analyst Market Intelligence Cert - 08/04/2020 11:46 EDT Electronically signed by Mil Carnes Conversion Environmental Resource Specialist Cerner at 07/09/2022 12:23 PM CDT documented in this encounter Plan of Treatment Not on file documented as of this encounter Visit Diagnoses Not on filedocumented in this encounter Care Teams Window Shade Ring Coverer Relationship Specialty Start Date End Date Reina, INSTRUMENT AND CONTROL TECHNICIAN [address] [place] [address] PCP - General Nurse Practitioner 11/14/22 10/01/23 documented as of this encounter
--- OUTSIDE RECORDS SUMMARY | 2024-10-13 09:33 | XMS_ITS | Encounter Summary ---
Author Organization [employer] ([place], [place], [place], [place]) Address [address] [place] [address] Care Team Providers Care Instructional Writer Name Role Phone Reina Olmedo DASHAWN Primary Care Provider [phone] Encounter Details Date Type Department Care Team (Late st Contact Info) Description 07/27/2020 Transcribed Document [facility] [place] Family [place] [address] [place] [address] ProviderVeronica MD [address] [place] [address] Social History Tobacco Use Types [...] 07/27/2020 11:47 EDT Electronically signed by Deyvi [facility] Conversion Intervention Nurse Cerner at 07/09/2022 12:38 PM CDT documented in this encounter Plan of Treatment Not on file documented as of this encounter Visit Diagnoses Not on filedocumented in this encounter Care Teams Instructional Writer Relationship Specialty Start Date End Date Reina, DENITRATOR OPERATOR [address] [place] [address] PCP - General Nurse Practitioner 11/14/22 10/01/23 documented as of this encounter
--- OUTSIDE RECORDS SUMMARY | 2024-10-13 09:33 | XMS_ITS | Encounter Summary ---
Author Organization [employer] ([place], [place], [place], [place]) Address [address] [place] [address] Care Team Providers Care College Administrator Name Role Phone NellieReina hancock Nilsa TAMEZ Primary Care Provider [phone] Encounter Details Date Type Department Care Team (Late st Contact Info) Description 07/27/2020 Transcribed Document [facility] [place] [address] [place] [address] ProviderVeronica MD [address] [place] [address] Social History Tobacco Use Types [...] EDT Description of Event : Return from quality control lab technician per stretcher awake and alert, skin w/d, mother here at bedside. Has TR pressure band right radial artery-CDI, no swelling, no bleeding, no pain. Cap refill less than 2 seconds right fingers. Has arterial splint in place right wrist-returns understanding for use. Food and drink ordered. LETY WASSERMAN, RN - 07/27/2020 11:42 EDT documented in this encounter Plan of Treatment Not on file documented as of this encounter Visit Diagnoses Not on filedocumented in this encounter Care Teams College Administrator Relationship Specialty Start Date End Date Reina Olmedo, HOME HELP AIDE [address] [place] [address] PCP - General Nurse Practitioner 11/14/22 10/01/23 documented as of this encounter
--- OUTSIDE RECORDS SUMMARY | 2024-10-13 09:33 | XMS_ITS | Encounter Summary ---
Author Organization [employer] ([place], [place], [place], [place]) Address [address] [place] [address] Care Team Providers Care Program Facilitator Name Role Phone Reina Olmedo APRN Primary Care Provider +1 [phone] Encounter Details Date Type Department Care Team (Late st Contact Info) Description 08/03/[address] [facility] [place] Family Medicine [address] [place] [address] ProviderVeronica MD [address] [place] [address] Social History Tobacco Use Types [...] ANGÉLICA REBOLLEDO/Sex: 1970 Female Med Rec #: [id number] Physician: YOU HAWTHORNE MD-OBG Financial #: [id number] Pt. Type: O Room/Bed: [facility] Admit/Disch: 08/03/20 03:59:00 - Institution: E IntraOp Case Attendance Entry 1 Entry 2 Entry 3 Case Attendee YOU HAWTHORNE Holliday, Stewart R, RN LOVELY VELEZ PA-C MD-OBG Role Performed Surgeon/Proceduralist, Master In Chancery, First Physician pharmacist assistant First Time In 08/03/20 09:42:00 08/03/20 09:42:00 [...] BREANNA HOWE TAYLOR, SARAH, ST Sharp, Mark CADD INSTRUCTOR Role Performed CADD INSTRUCTOR/Nurse Corn Husk Baler Scrub, First Scrub, Second Time In 08/03/20 [...] E IntraOp Case Attendance Audit 08/03/20 11:31:44 Contracts Manager: JERONIMO Modifier: JERONIMO 1 <+> Time In [...] [facility] IntraOp Case Times Audit 08/03/20 11:31:43 Contracts Manager: WALTERIDSR Modifier: HOLLIDSR <+> 1 Out Room Time <+> 1 Stop Time 08/03/20 11:25:20 Contracts Manager: HOLLIDSR Modifier: HOLLIDSR <+> 1 Stop Time 08/03/20 10:06:00 Contracts Manager: WALTERIDSR Modifier: HOLLIDSR <+> 1 Start Time [...] 10:06:35 [facility] IntraOp Cautery Audit 08/03/20 10:06:35 Contracts Manager: JERONIMO Modifier: HOLLIDSR 1 <*> Cut Setting [...] S[facility] IntraOp Counts Final Audit 08/03/20 11:11:48 Contracts Manager: WALTERADIN Modifier: WALTERIDSR 1 <*> Procedure Abdominal Hysterectomy Laparoscopic, Salpingectomy [...] Foster Avilez, Accompanied by RN, BREANNA HOWE, CADD INSTRUCTOR Last Modified By: Foster Avilez RN 08/03/20 10:06:36 SJE IntraOp Dressing [...] Yes Assessment Complete Fire Risk Foster Avilez hard rock miner blasting Verified By Fire Risk 08/03/20 09:34:00 Assessment Verified Date/Time Fire Risk Standard Fire Yes Safety Precautions Followed Last Modified By: Foster Avilez RN 08/03/20 09:34:03 SJE IntraOp General Case Tele Tech 1 Case Information OR OR 07 SJE Case Level 1 Room Verified Yes Wound Class II - Clean-Contaminated Specialty Gynecology Anesthesia Type General ASA Class 3 Diagnosis Preop Diagnosis pelvic pain, AUB Postop Diagnosis refer to MD notes Last Modified By: Foster Avilez RN 08/03/20 10:06:54 [facility] IntraOp General Case Data Audit 08/03/20 10:06:54 Contracts Manager: JERONIMO Modifier: JERONIMO <+> 1 ASA Class [...] 0.5% w/ epinephrine 1:200,000 30ml vial - [id number] Route of local Administration Dose Dose 30 [...] on filedocumented in this encounter Care Teams Program Facilitator Relationship Specialty Start Date End Date Reina Olmedo, ROTARY FILTER OPERATOR [address] [place] [address] PCP - General Nurse Practitioner 11/14/22 10/01/23 documented as of this encounter
--- OUTSIDE RECORDS SUMMARY | 2024-10-13 09:33 | XMS_ITS | Encounter Summary ---
Author Organization [employer] ([place], [place], [place], [place]) Address [address] [place] [address] Care Team Providers Care Russet Repairer Name Role Phone NelliekarissaReina APRN Primary Care Provider [phone] [phone] Encounter Details Date Type Department Care Team (Late st Contact Info) Description 12/02/2019 Transcribed Document [facility] [place] Family Medicine [address] [place] [address] Veronica Correa MD [address], [place] [address] Social History Tobacco Use Types Packs/Day Years [...] activities are safe for you. ??? Take qmtn-tah-ymypfbf and prescription medicines only as told by [...] 06/16/2001 Document Revised: 03/13/2018 Document Reviewed: 10/24/2017 [employer] Patient Education ? 2020 [employer]. Myomectomy, Care After This sheet gives you [...] these instructions at home: Medicines ??? Take luti-gnk-blpqlpo and prescription medicines only as told by [...] and water are not available, use hand bilingual speech language pathologist. ? Change your dressing as told by [...] urine clear or pale yellow. ? Take cdwn-nmv-wusvnhh or prescription medicines. ? Eat foods that [...] 07/31/2011 Document Revised: 02/20/2018 Document Reviewed: 04/10/2017 [employer] Patient Education ? 2020 [employer] Hysteroscopy, Care After This sheet gives [...] taking prescription pain medicines. Medicines ??? Take ekri-lhq-ermolyg and prescription medicines only as told by [...] urine clear or pale yellow. ? Take hrqm-otr-lzambum or prescription medicines. ? Eat foods that [...] 12/29/2013 Document Revised: 02/20/2018 Document Reviewed: 04/08/2017 [employer] Patient Education ? 2020 [employer]. documented in this encounter Plan of Treatment Not on file documented as of this encounter Visit Diagnoses Not on filedocumented in this encounter Care Teams Russet Repairer Relationship Specialty Start Date End Date Reina Olmedo, DIRECTOR [employer] [address] [place] [address] PCP - General Nurse Practitioner 11/14/22 10/01/23 documented as of this encounter
--- OUTSIDE RECORDS SUMMARY | 2024-10-13 09:33 | XMS_ITS | Encounter Summary ---
Author Organization [employer] ([place], [place], [place], [place]) Address [address] [place] [address] Care Team Providers Care Wick Tender Name Role Phone Nelliekarissa Reina Ash APRN Primary Care Provider [phone] [phone] Encounter Details Date Type Department Care Team (Late st Contact Info) Description 07/26/2020 Transcribed Document [facility] [place] Family Medicine [address] [place] [address] ProviderVeronica MD [address] [place] [address] Social History Tobacco Use Types [...] Source : Stated Height Entry Format : [place] Height, Feet : 5 ft(Converted to: 152 cm, 60 Inch) Height, Inches : 0 Inch(Converted to: 0 ft 0 Inch, 0.00 cm) Clinical Height : 152.4 cm Weight Source : Standing scale Weight Entry Format : [place] Clinical Dosing Weight : 127.73 kg Weight, Pounds : 281 lb Body Surface Area (BSA) : 2.16 m2 Body Mass Index : 55 kg/m2 (>HHI) [place] Body Weight : 45 kg RENZO MORRELL [...] Family History of Anesthesia Reaction : None RENZO MORRELL RN - 07/26/2020 13:15 EDT Functional [...] RENZO MORRELL RN - 07/26/2020 13:15 EDT [place] Suicide Severity Rating Scale (C-SSRS) CSSRS Past [...] #2 Relationship : - Primary Language : Japanese Preferred Communication Mode : Verbal Communication Barrier : None Flag Maker Needed : No RENZO MORRELL RN - 07/26/2020 13:15 EDT Jey Scale Jey Sensory Perception : No impairment Jey Moisture : Rarely moist Jey Activity : Walks frequently Jey Mobility : No limitation Jey Nutrition : Excellent Jey Friction and Shear : No apparent problem Jey Score : 23 RENZO MORERLL RN - 07/26/2020 13:15 EDT Sleep Apnea [...] on filedocumented in this encounter Care Teams Wick Tender Relationship Specialty Start Date End Date Reina Olmedo, ROAD EQUIPMENT OPERATOR [address] [place] [address] PCP - General Nurse Practitioner 11/14/22 10/01/23 documented as of this encounter
--- OUTSIDE RECORDS SUMMARY | 2024-10-13 09:33 | XMS_ITS | Encounter Summary ---
Author Organization [employer] ([place], [place], [place], [place]) Address [address] [place] [address] Care Team Providers Care Brass Chaser Name Role Phone NellieReina hancock Nilsa TAMEZ Primary Care Provider [phone] [phone] Encounter Details Date Type Department Care Team (Late st Contact Info) Description 07/27/2020 Transcribed Document [facility] [place] [address] [place] [address] ProviderVeronica MD [address] [place] [address] Social History Tobacco Use Types [...] to thoroughly wash your hands, use hand watch crystal molder. While handwashing is best, hand watch crystal molder helps to reduce the spread of germs when you are out and about. Have hand watch crystal molder in several locations so you can always [...] keep people from also getting sick. Don???t [place] It! Sneezing this time of year is [...] a PCP near you, please visit [employer]PER[employer] [email or web address]/ [email or web address]. May 28, 2019 Carbohydrate Counting for Diabetes [...] of carbohydrates: ? hamburger bun or ? Setswana muffin. ? oz (15 mL) syrup. ? [...] foods that contain carbohydrates: ??? Rice. ??? Webster. ??? Milk. ??? Strawberries. 2. Calculate how [...] provider. Document Revised: 10/02/2017 Document Reviewed: 08/21/2016 [employer] Patient Education ? 2020 [employer] Inc. Diabetes Mellitus and Nutrition, Adult When [...] ??? Work with a counselor or clinical trial educator to identify strategies to manage stress and any emotional and social challenges. Questions to ask a health care provider ??? Do I need to meet with a clinical trial educator? Do I need to meet with a dietitian? What number can I call if I have questions? When are the best times to check my blood glucose? Where to find more information: ??? [place] Diabetes Association: diabetes.org ??? Academy of Nutrition and Dietetics: www.eatright.org ??? National [place] of Diabetes and Digestive and Kidney Diseases [...] provider. Document Revised: 02/20/2018 Document Reviewed: 04/14/2017 [employer] Patient Education ? 2020 [employer] Inc. Moderate Conscious Sedation, Adult, Care After [...] you are awake and alert. ??? Take bdhc-rqv-jswhywu and prescription medicines only as told by [...] provider. Document Revised: 02/20/2018 Document Reviewed: 06/29/2016 [employer]ola Patient Education ? 2020 [employer]. Radial Site Care This sheet gives [...] these instructions at home: Medicines ??? Take anhe-phz-obyxenz and prescription medicines only as told by your health care provider. Insertion site care ??? Follow instructions from your health care provider about how to take care of your insertion site. Make sure you: ? Wash your hands with soap and water before you change your bandage (dressing). If soap and water are not available, use hand watch crystal molder. ? Change your dressing as told by [...] provider. Document Revised: 04/15/2018 Document Reviewed: 04/15/2018 [employer] Patient Education ? 2020 [employer] Inc. Transradial Angiogram A transradial angiogram is [...] including vitamins, herbs, eye drops, creams, and brow-ena-icdrgux medicines. ??? Any problems you or family [...] tells you to take them. ??? Taking yfoj-fhh-mwzyfmv medicines, vitamins, herbs, and supplements. Exams and [...] provider. Document Revised: 02/01/2019 Document Reviewed: 02/01/2019 [employer]ola Patient Education ? 2019 [employer]. Radiology Coronary Angiogram A coronary angiogram is [...] including vitamins, herbs, eye drops, creams, and stfh-gha-eszseea medicines. ??? Any problems you or family [...] do not normally take it. ??? Taking hkvb-ipo-srbumqq medicines, vitamins, herbs, and supplements. General instructions [...] Reviewed: 09/30/2019 Elsevier Patient Education ? 2020 Xola Inc. documented in this encounter Plan of Treatment Not on file documented as of this encounter Visit Diagnoses Not on filedocumented in this encounter Care Teams Brass Chaser Relationship Specialty Start Date End Date Reina Olmedo, PANEL MONITOR [address] [place] [address] PCP - General Nurse Practitioner 11/14/22 10/01/23 documented as of this encounter
--- OUTSIDE RECORDS SUMMARY | 2024-10-13 09:33 | XMS_ITS | Encounter Summary ---
Author Organization [employer] ([place], [place], [place], [place]) Address [address] [place] [address] Care Team Providers Care Tungsten Refiner Name Role Phone Reina Olmedo CHANGE OVER Primary Care Provider [phone] [phone] Encounter Details Date Type Department Care Team (Late st Contact Info) Description 08/04/2020 Transcribed Document [facility] [place] Medicine [address] [place] [address] ProviderVeronica MD [address] [place] [address] Social History Tobacco Use Types [...] on filedocumented in this encounter Care Teams Tungsten Refiner Relationship Specialty Start Date End Date Reina Olmedo, CHANGE OVER [address] [place] [address] PCP - General Nurse Practitioner 11/14/22 10/01/23 documented as of this encounter
--- OUTSIDE RECORDS SUMMARY | 2024-10-13 09:34 | XMS_ITS | Encounter Summary ---
Author Organization [employer] ([place], [place], [place], [place]) Address [address] [place] [address] Care Team Providers Care Format Proofreader Name Role Phone Reina Olmedo DASHAWN Primary Care Provider [phone] [phone] Encounter Details Date Type Department Care Team (Late st Contact Info) Description 03/13/2021 Transcribed Document [facility] [address] [place] [address] ProviderVeronica MD [address] [place] [address] Social History Tobacco Use Types [...] - Historical ProviderMD - 03/13/2021 3:30 PM FUDGER JAZMYN Endo PACU Summary Primary Physician: CARINE AMATO MD-GAE Finalized Date/Time: 03/13/21 16:11:33 Pt. Name: YANE REBOLLEDO/Sex: 1970 Female Med Rec #: [id number] Physician: CARINE AMATO MD-GAE Financial #: [id number] Pt. Type: E Room[place]Bed: [facility] Admit/Disch: 03/13/21 12:24:00 - 03/13/21 15:47:00 Institution: [facility] Mary PACU Case Times Entry 1 In PACU I 03/13/21 15:39:00 Ready for PACU 03/13/21 16:03:00 Discharge Discharge from PACU 03/13/21 16:11:00 I JAZMYN Endo PACU Case Times Audit 03/13/21 16:11:32 Supervisor Stage Carpentry: [id number] Modifier: [id number] <+> 1 Ready for PACU Discharge <+> 1 Discharge from PACU I Finalized By: Lolis Ivan RN-PATIENT CARE BEDSIDE NON-EXEMPT Document Signatures Signed By: Lolis Ivan RN-PATIENT CARE BEDSIDE NON-EXEMPT 03/13/21 16:11 documented in this encounter Plan of Treatment Not on file documented as of this encounter Visit Diagnoses Not on filedocumented in this encounter Care Teams Format Proofreader Relationship Specialty Start Date End Date Reina Olmedo, LEAD RECOVERER [address] [place] [address] PCP - General Nurse Practitioner 11/14/22 10/01/23 documented as of this encounter
--- OUTSIDE RECORDS SUMMARY | 2024-10-13 09:34 | XMS_ITS | Encounter Summary ---
Author Organization [employer] ([place], [place], [place], [place]) Address [address] [place] [address] Care Team Providers Care Steel Pourer Helper Name Role Phone NellieReina hancock Nilsa TAMEZ Primary Care Provider [phone] -[phone] Encounter Details Date Type Department Care Team (Late st Contact Info) Description 03/13/2021 Transcribed Document [facility] [place] [address] [place] [address] ProviderVeronica MD [address] [place] [address] Social History Tobacco Use Types [...] - Veronica ProviderMD - 03/13/2021 3:41 PM SALES/MARKETING Patient Education Materials Follows: ESOPHAGOGASTRODUODENOSCOPY Care After [...] these instructions at home: Medicines ??? Take nmsy-dlw-qphivvk and prescription medicines only as told by [...] provider. Document Revised: 07/28/2018 Document Reviewed: 07/28/2018 [employer] Patient Education ? 2020 [employer]. documented in this encounter Plan of Treatment Not on file documented as of this encounter Visit Diagnoses Not on filedocumented in this encounter Care Teams Steel Pourer Helper Relationship Specialty Start Date End Date Reina Olmedo, PROPERTY MANAGEMENT ACCOUNTANT [address] [place] [address] PCP - General Nurse Practitioner 11/14/22 10/01/23 documented as of this encounter
--- OUTSIDE RECORDS SUMMARY | 2024-10-13 09:34 | XMS_ITS | Encounter Summary ---
Author Organization [employer] ([place], [place], [place], [place]) Address [address] [place] [address] Care Team Providers Care Finish Photographer Name Role Phone NellieReina hancock Nilsa TAMEZ Primary Care Provider [phone] [phone] Reason for Visit * Reason Onset Date Comments Medication Refill 07/23/2023 Encounter Details Date Type Department Care Team (Late st Contact Info) Description 07/23/2023 Refill [facility] Cardiology - [address] [place] [address] Rosa Jean-Baptiste MD [address] [place] [address] Social History Tobacco Use Types Packs/Day Years [...] Date Joshua rded Speak language other than Uzbek at home Not on file 04/09/2023 Want [...] on filedocumented in this encounter Care Teams Finish Photographer Relationship Specialty Start Date End Date Reina Olmedo, AVIATION MAINTENANCE TECHNICIAN [address] [place] [address] PCP - General Nurse Practitioner 11/14/22 10/01/23 documented as of this encounter
--- OUTSIDE RECORDS SUMMARY | 2024-10-13 09:34 | XMS_ITS | Encounter Summary ---
Author Organization [employer] ([place], [place], [place], [place]) Address [address] [place] [address] Care Team Providers Care Product Inspection Supervisor Name Role Phone NellieReina hancock Nilsa TAMEZ Primary Care Provider [phone] -[phone] Encounter Details Date Type Department Care Team (Late st Contact Info) Description 11/08/2020 Transcribed Document [facility] [place] Family Medicine Replaced by [facility] [place] [address] ProviderVeronica MD [address] [place], [place] [address] Social History Tobacco Use Types Packs/Day Years [...] Ms. Oconnor and continue in her care. /[id number] Melinda Lopez MD PAC/AQ / PAC / MODL /[id number] CC: MD Holly Carlson APRN Electronically signed by [facility], [facility] Conversion New Accounts Representative Cerner at 07/09/2022 12:33 PM CDT documented in this encounter Plan of Treatment Not on file documented as of this encounter Visit Diagnoses Not on filedocumented in this encounter Care Teams Product Inspection Supervisor Relationship Specialty Start Date End Date Reina APRN [address] [place] [address] PCP - General Nurse Practitioner 11/14/22 10/01/23 documented as of this encounter
--- OUTSIDE RECORDS SUMMARY | 2024-10-13 09:34 | XMS_ITS | Encounter Summary ---
Author Organization [employer] ([place], [place], [place], [place]) Address [address] [place] [address] Care Team Providers Care Hand Heel Seat Fitter Name Role Phone Reina Olmedo APRN Primary Care Provider [phone] [phone] Encounter Details Date Type Department Care Team (Late st Contact Info) Description 03/01/2022 Telephone [facility] Primary Care - [address] [place] [address] Reina Olmedo APRN [address] [place] [address] Social History Tobacco Use Types [...] - 03/01/2022 4:11 PM EST Notified confirmed CTOR OF ASSESSING * Telephone Encounter - Reina Olmedo APRN - 03/01/2022 3:38 PM EST I will change her to vipin for temporary CTOR OF ASSESSING * Telephone Encounter - Charlotte Mckee - 03/01/2022 12:33 PM EST Patient called in states Christopher is out nationwide- back order Pharmacy does not know when they will have it, was advised that other pharmacies do not have it at this time. Would like to see what Shara TAMEZ Recommends either making changes to her current medication or providing alternative Please advise CTOR OF ASSESSING documented in this encounter Plan of Treatment Not on file documented as of this encounter Visit Diagnoses Not on filedocumented in this encounter Care Teams Hand Heel Seat Fitter Relationship Specialty Start Date End Date Reina Olmedo APRN [address] [place] [address] PCP - General Nurse Practitioner 11/14/22 10/01/23 documented as of this encounter
--- OUTSIDE RECORDS SUMMARY | 2024-10-13 09:34 | XMS_ITS | Encounter Summary ---
Author Organization [employer] ([place], [place], [place], [place]) Address [address] [place] [address] Care Team Providers Care Heating And Ventilating Drafter Name Role Phone Reina Olmedo DASHAWN Primary Care Provider [phone] [phone] Encounter Details Date Type Department Care Team (Late st Contact Info) Description 03/13/2021 Transcribed Document [facility] [place] [address] [place] [address] ProviderVeronica MD [address] [place] [address] Social History Tobacco Use [...] - Historical ProviderMD - 03/13/2021 2:30 PM INVESTMENT BANKING ANALYST JAZMYN Mary PreOp Summary Primary Physician: CARINE AMATO MD-GAE Finalized Date/Time: 03/13/21 14:22:39 Pt. Name: YANE REBOLLEDO/Sex: 1970 Female Med Rec #: [id number] Physician: CARINE AMATO MD-GAE Financial #: [id number] Pt. Type: E [place] [facility] Admit/Disch: 03/13/21 12:24:00 - Institution: [facility] Mary [...] on filedocumented in this encounter Care Teams Heating And Ventilating Drafter Relationship Specialty Start Date End Date Reina, PRODUCTION SUPERVISOR [address] [place] [address] PCP - General Nurse Practitioner 11/14/22 10/01/23 documented as of this encounter
--- OUTSIDE RECORDS SUMMARY | 2024-10-13 09:34 | XMS_ITS | Referral Summary ---
Author Organization [employer] ([place], [place], [place], [place]) Address [address] [place] [address] Care Team Providers Care Rn X Ray Name Role Phone Unavailable Primary Care Provider Unavailabl e Allergies Active Allergy Reactions Criticality Noted Date Comments Egg Hives,Itching,Rash High 01/06/2023 Green Gonzalez Hives,Itching,Rash High 01/06/2023 Hazelnut Hives,Itching,Rash High 01/06/2023 House Dust Mite 01/06/2023 Milk Hives,Itching,Rash High 01/06/2023 Mold Hives,Itching,Rash High 01/06/2023 Peanut Hives,Itching,Rash High 01/06/2023 Tomato Hives,Itching,Rash High 01/06/2023 Tree Pollen Hives,Itching,Rash High 01/06/2023 Arcadia Hives,Itching,Rash High 01/06/2023 Medications aspirin 81 MG [...] mRNA (PF)(LNP-S BIV ALENT) (Perez Cap) 12YR+ (PFIZER)([id number] 12/27/2022 Covid-19 Vaccine MRNA (PF) 1 2yr+ (Pfizer/Cardiovascular Decisions)([id number]) 01/26/2021,07/25/2020,06/29/2020 Covid-19 Vaccine MRNA(PF,Premixed)12YR+ (Pfizer/Cardiovascular Decisions)([id number]) 08/09/2021 Hepatitis A Adult 08/07/2018,01/06/2018 Influenza Four-QIV [...] Date Joshua rded Speak language other than [place] Timorese at home Not on file 04/09/2023 Want [...] AM EDT Performed at: 01 - [facility] [address] [id number] Vice President Sales: Clive Martinez PhD, Phone: [phone] Reina Olmedo APRN LAB BLOOD ORDERABLES Becky l Result Performing Organization Address [facility] de Phone Number [facility] * (ABNORMAL) Lipid panel (08/04/2023 2:21 PM EDT) [facility] Cholesterol, Total 153 100 - 199 mg/dL [facility] Triglycerides 236(H) 0 - 149 mg/dL [facility] HDL Cholesterol 46 >39 mg/dL [facility] VLDL Cholesterol Lopez 38 5 - 40 mg/dL [facility] LDL Calculated 69 0 - 99 mg/dL [facility] Blood 08/04/2023 2:21 PM EDT 08/04/2023 Narrative [facility] - 08/05/2023 10:08 AM EDT Performed at: 01 - [facility] [address] [id number] Vice President Sales: Clive Martinez PhD, Phone: [phone] Reina Olmedo APRN LAB BLOOD ORDERABLES Becky l Result Performing Organization Address [facility] Co de Phone Number [facility] * HM MAMMOGRAPHY (11/11/2018) Anatomical Region Laterality Modality Other Historical Provider HEALTH MAINTENANCE Final Result from Last 3 Months or Most Recently Relevant to Health Maintenance Insurance [facility]
--- OUTSIDE RECORDS SUMMARY | 2024-10-13 09:34 | XMS_ITS | Encounter Summary ---
Author Organization [employer] ([place], [place], [place], [place]) Address [address] [place] [address] Care Team Providers Care Director Emergency Name Role Phone Reina Olmedo DASHAWN Primary Care Provider [phone] Encounter Details Date Type Department Care Team (Late st Contact Info) Description 08/04/2020 Transcribed Document [facility] [place] [address] [place] [address] ProviderVeronica MD [address] [place] [address] Social History Tobacco Use Types [...] Veronica ProviderMD - 08/04/2020 12:18 [place] [address] YANE REBOLLEDO :1970 Visit Time:08/03/2020 Your Visit Summary Your Care Team Admitting Physician - YOU HAWTHORNE MD-OBG Attending Physician - YOU HAWTHORNE MD-OBG Primary Care Physician - WILL BRIDGES, -[facility] Referring Physician - YOU HAWTHORNE MD-OBG Your [...] When 08/15/2020 02:00 PM EDT Where: [address] [place] [address]- Medications What How Much When Instructions Next Dose acetaminophen-oxyCODONE (Percocet 5/ 325 oral tablet) 1 Tablet(s) Oral Every 6 Hours not to exceed 12 tablets/ day Pickup at [facility] ibuprofen (ibuprofen 800 mg oral tablet) 1 Tablet(s) Oral Every 6 Hours not to exceed 3200 mg/ day Pickup at [facility] 08/04/20 at 6pm aspirin (aspirin 81 [...] 2 Tablet(s) Oral At Bedtime Pharmacy Information [facility]: [address] [place] [address] [phone] Take your medications faithfully. Do NOT skip [...] and water are not available, use hand soil conservationist. ? Change or remove your dressing as [...] Do not have sex. Medicines ??? Take mwqh-bcj-auzrbfb and prescription medicines only as told by your health care provider. ??? Ask your health care provider if the medicine prescribed to you: ? Requires you to avoid driving or using heavy machinery. ? Can cause constipation. You may need to take actions to prevent or treat constipation, such as: ? Drink enough fluid to keep your urine pale yellow. ? Take ogdr-tfk-lzuilnk or prescription medicines. ? Eat foods that [...] provider. Document Revised: 03/01/2019 Document Reviewed: 03/01/2019 [employer] Patient Education ?? 2020 Videobot. Total Laparoscopic Hysterectomy, Care After This sheet [...] and water are not available, use hand soil conservationist. ? Change your dressing as told by [...] by your health care provider. ??? Take inps-tlc-fofbzsw and prescription medicines only as told by [...] urine clear or pale yellow. ? Take uyke-zpx-qehzugj or prescription medicines. ? Eat foods that [...] provider. Document Revised: 02/20/2018 Document Reviewed: 05/21/2017 [employer] Patient Education ?? 2020 Videobot. acetaminophen and oxycodone (a SEET a MIN [...] may report side effects to FDA at 3-515-JDK-2056. What other drugs will affect acetaminophen and [...] affect acetaminophen and oxycodone, including prescription and fetk-cpy-kdoycku medicines, vitamins, and herbal products. Not all [...] to ensure that the information provided by [employer]. ('[employer]') is accurate, up-to-date, and complete, but no guarantee is made to that effect. Drug information contained herein may be time sensitive. [employer] information has been compiled for use by healthcare practitioners and consumers in the [place] and therefore [employer] does not warrant that uses outside of the [place] are appropriate, unless specifically indicated otherwise. [employer]'s drug information does not endorse drugs, diagnose patients or recommend therapy. [employer] drug information is an informational resource designed [...] effective or appropriate for any given patient. [employer] does not assume any responsibility for any aspect of healthcare administered with the aid of information Out[employer] provides. The information contained herein is not intended to cover all possible uses, directions, precautions, warnings, drug interactions, allergic reactions, or adverse effects. If you have questions about the drugs you are taking, check with your doctor, nurse or pharmacist. Copyright 9503-0172 [employer]. Version: 20.03. Revision Date: 04/28/2020. ibuprofen (EYE [...] flu-like symptoms, loss of appetite, dark urine, ihsan-colored stools, [...] may report side effects to FDA at 6-287-TAN-2575. What other drugs will affect ibuprofen? Ask [...] drugs may affect ibuprofen, including prescription and ijnx-spc-pvzvkyz medicines, vitamins, and herbal products. Not all [...] to ensure that the information provided by [employer]. ('Multum') is accurate, up-to-date, and complete, but no guarantee is made to that effect. Drug information contained herein may be time sensitive. [employer] information has been compiled for use by healthcare practitioners and consumers in the [place] and therefore Out[employer] does not warrant that uses outside of the [place] are appropriate, unless specifically indicated otherwise. [employer] drug information does not endorse drugs, diagnose patients or recommend therapy. [employer] drug information is an informational resource designed [...] effective or appropriate for any given patient. [employer] does not assume any responsibility for any aspect of healthcare administered with the aid of information Out[employer] provides. The information contained herein is not intended to cover all possible uses, directions, precautions, warnings, drug interactions, allergic reactions, or adverse effects. If you have questions about the drugs you are taking, check with your doctor, nurse or pharmacist. Copyright 3677-4132 [employer]. Version: 22.01. Revision Date: 02/16/2020. Emergency Awareness [...] Assistance with quitting is available by contacting 7-243-PMQK-NOW. This is a free resource providing counseling, [...] range between ( 1.0 and 7.0 ) [place]a #: 0.79 K/uL -- Normal range between ( 0.24 and 0.82 ) Eos #: 0.01 K/uL -- Normal range between ( 0.04 and 0.54 ) Mesa %: 7.5 % -- Normal range between [...] was given the opportunity to ask questions. Patient/Quilter Fixer Name: Patient/Quilter Fixer Signature: Relationship to Patient: Clinician/Hospital Quilter Fixer Signature: Date: documented in this encounter Plan of Treatment Not on file documented as of this encounter Visit Diagnoses Not on filedocumented in this encounter Care Teams Director Emergency Relationship Specialty Start Date End Date FebReina hancock APRN [address] [place] [address] PCP - General Nurse Practitioner 11/14/22 10/01/23 documented as of this encounter
--- OUTSIDE RECORDS SUMMARY | 2024-10-13 09:34 | XMS_ITS | Encounter Summary ---
Author Organization [employer] ([place], [place], [place], [place]) Address [address] [place] [address] Care Team Providers Care Hurl Shaker Name Role Phone Reina Olmedo DASHAWN Primary Care Provider [phone] Encounter Details Date Type Department Care Team (Late st Contact Info) Description 03/13/2021 Transcribed Document [facility] [place] Medicine [address] [place] [address] ProviderVeronica MD [address] [place] [address] Social History Tobacco Use Types [...] - Veronica ProviderMD - 03/13/2021 3:38 PM CLOTH MENDER Patient: YANE REBOLLEDO Age: 50 years Sex: Female : 1970 Associated Diagnoses: None Author: CARINE RAMEY MD-[facility] Upper Endoscopy Procedure Report: Esophagogastroduodenoscopy with cold [...] The entire esophagus was dilated to 60 Malay/20 mm with a TTS hydrostatic balloon. There [...] on filedocumented in this encounter Care Teams Hurl Shaker Relationship Specialty Start Date End Date Reina Olmedo, JEWELRY SALES REPRESENTATIVE [address] [place] [address] PCP - General Nurse Practitioner 11/14/22 10/01/23 documented as of this encounter
--- OUTSIDE RECORDS SUMMARY | 2024-10-13 09:34 | XMS_ITS | Encounter Summary ---
Author Organization [employer] ([place], [place], [place], [place]) Address [address] [place] [address] Care Team Providers Care Staff Consultant Name Role Phone Nelliekarissa Reina Nilsa TAMEZ Primary Care Provider [phone] Encounter Details Date Type Department Care Team (Late st Contact Info) Description 03/13/2021 Transcribed Document [facility] [place] [address] [place] [address] ProviderVeronica MD [address] [place] [address] Social History Tobacco Use Types [...] - Historical ProviderMD - 03/13/2021 2:07 PM ASSOCIATE JAVA DEVELOPER Pre Procedure Adult Entered On: 03/13/2021 14:09 EST Performed On: 03/13/2021 14:07 EST by Vanna Durant Rn Height and Weight, Clinical Dosing Height Source : Stated Height Entry Format : Hand Height, Feet : 5 ft(Converted to: 152 cm, 60 Inch) Height, Inches : 0 Inch(Converted to: 0 ft 0 Inch, 0.00 cm) Clinical Height : 152.4 cm Weight Source : Standing scale Weight Entry Format : Hand Clinical Dosing Weight : 124.64 kg Weight, Pounds : 274.2 lb Body Surface Area (BSA) : 2.14 m2 Body Mass Index : 53.7 kg/m2 (>HHI) Harrison Body Weight : 45 kg Vanna Durant [...] Vanna Durant Rn - 03/13/2021 14:[address] [facility] Suicide Severity Rating Scale (C-SSRS) CSSRS Past [...] 03/13/2021 14:07 EST General Info Support Person/Patient Hog Scalder : Yes Want Family/Rep/Phys Notified of Admit : No Emergency Contact #1 : Meryl Emergency Contact #1 Emergency Contact #1 Relationship : mother Emergency Contact #2 : . Emergency Contact #2 Phone Number : . Emergency Contact #2 Relationship : . Primary Language : Sinhala Preferred Communication Mode : Verbal Communication Barrier : None Central Office Operator Supervisor Needed : No Vanna Durant Rn - [...] Scale Risk Level : 0-24 Low Risk Opp Fall Interventions : Adequate lighting, Assistive devices within reach, Bed in low position, Call device within reach Vanna Durant Rn - 03/13/2021 14:07 EST Valuables and Belongings Valuables and Belongings : Clothing Clothing : Common streetwear Clothing Disposition : Bedside Vanna Durant Rn - 03/13/2021 14:07 EST Electronically signed by Tayler Carnes Conversion Rubber Stamps And Dies Supervisor Cerner at 07/09/2022 12:14 PM CDT documented in this encounter Plan of Treatment Not on file documented as of this encounter Visit Diagnoses Not on filedocumented in this encounter Care Teams Staff Consultant Relationship Specialty Start Date End Date Reina Olmedo, DASHAWN [address] [place] [address] PCP - General Nurse Practitioner 11/14/22 10/01/23 documented as of this encounter
--- OUTSIDE RECORDS SUMMARY | 2024-10-13 09:34 | XMS_ITS | Encounter Summary ---
Author Organization [facility] ([place], [place], [place], [place]) Address [address] [place] [address] Care Team Providers Care Custodial Services Manager Name Role Phone Reina Olmedo Nilsa TAMEZ Primary Care Provider [phone] Encounter Details Date Type Department Care Team (Late st Contact Info) Description 03/13/2021 Transcribed Document [facility] [place] [address] [place] [address] ProviderVeronica MD [address] [place] [address] Social History Tobacco Use Types [...] - Historical ProviderMD - 03/13/2021 3:43 PM LEATHER BELT SHAPER [address] [address] AMAURYYANE :1970 Visit Time:03/13/2021 What to do next Follow-Up Appointments Follow Up with CARINE AMATO MD-ASUNCION When Comments Please call the office if you have any questions or concerns. Where: [address] [place] [address]- Medications What How Much When Instructions Next Dose aspirin (aspirin 81 mg oral delayed release tablet) 1 Tablet(s) Oral Every Day azelastine nasal (azelastine 137 mcg/ inh (0.1%) nasal spray) 2 Elkader(s) Nasal Two Times A Day citalopram (citalopram 10 mg oral tablet) 1 Tablet(s) Oral At Bedtime DULoxetine 60 Milligram(s) Oral Two Times A Day ergocalciferol (ergocalciferol 50,000 intl units (1.25 mg) oral capsule) 1 Capsule(s) Oral Weekly ergocalciferol (Vitamin D2 1.25 mg (50,000 intl units) oral capsule) Oral Weekly fluticasone nasal (fluticasone 50 mcg/ inh nasal spray) 1 Elkader(s) Nasal Every Day glimepiride 2 Milligram(s) Oral [...] these instructions at home: Medicines ??? Take kyij-zxn-aqqpche and prescription medicines only as told by [...] provider. Document Revised: 07/28/2018 Document Reviewed: 07/28/2018 [employer] Patient Education ?? 2020 Weele. ESOPHAGOGASTRODUODENOSCOPY Care After Read the instructions outlined [...] Assistance with quitting is available by contacting 8-388-XKFY-NOW. This is a free resource providing counseling, [...] was given the opportunity to ask questions. Patient/Porcelain Enamel Sprayer Name: Patient/Porcelain Enamel Sprayer Signature: Relationship to Patient: Clinician/Hospital Porcelain Enamel Sprayer Signature: Date: documented in this encounter Plan of Treatment Not on file documented as of this encounter Visit Diagnoses Not on filedocumented in this encounter Care Teams Custodial Services Manager Relationship Specialty Start Date End Date Reina, HOT HEAD MACHINE OPERATOR [address] [place] [address] PCP - General Nurse Practitioner 11/14/22 10/01/23 documented as of this encounter
--- OUTSIDE RECORDS SUMMARY | 2024-10-13 09:34 | XMS_ITS | Encounter Summary ---
Author Organization [employer] ([place], [place], [place], [place]) Address [address] [place] [address] Care Team Providers Care Scrap Metal Collector Name Role Phone Reina Olmedo DASHAWN Primary Care Provider [phone] Encounter Details Date Type Department Care Team (Late st Contact Info) Description 03/13/2021 Transcribed Document [facility] [place] [address] [place] [address] ProviderVeronica MD [address] [place] [address] Social History Tobacco Use Types [...] - Historical ProviderMD - 03/13/2021 3:30 PM PSYCHOLOGY ASSISTANT JAZMYN Mary IntraOp Summary Primary Physician: CARINE AMATO MD-GAE Finalized Date/Time: 03/13/21 15:38:27 Pt. Name: YANE REBOLLEDO/Sex: 1970 Female Med Rec #: [id number] Physician: CARINE AMATO MD-GAE Financial #: [id number] Pt. Type: E Room/Bed: [facility] [place] Admit/Disch: 03/13/21 12:24:00 - Institution: [facility] - Case Attendance Entry 1 Entry 2 Entry 3 Case Attendee CARINE AMATO FLEMING, SCOTT, -BARTOLOME ISSA APRN, MD-GAE JIG INSPECTOR-ANS Role Performed Surgeon/Proceduralist, Anesthesiologist of JIG INSPECTOR/Nurse Heritage Consultant First Record Time In 03/13/21 15:26:00 03/13/21 15:25:00 03/13/21 15:25:00 Time Out 03/13/21 15:38:00 03/13/21 15:38:00 03/13/21 15:38:00 Procedure Esophagogastroduodenosco Esophagogastroduodenosco Esophagogastroduodenosco py py py Other Attendee Superficial Wound Closed By: Last Modified By: Candy Bell Edmundson, Stephanie, Edmundson, Stephanie, JASSON 03/13/21 15:38:16 RN 03/13/21 15:38:16 RN 03/13/21 15:38:16 Entry 4 Entry 5 Case Attendee Onel Martin Edmundson, Stephanie, mobile device engineerShelf Stocker Role Performed Scrub, First Drier Take Off Tender, First Time In 03/13/21 15:25:00 03/13/21 15:25:00 Time Out 03/13/21 15:38:00 03/13/21 15:38:00 Procedure Esophagogastroduodenosco Esophagogastroduodenosco py py Other Attendee Superficial Wound Closed By: Last Modified By: Candy Bell Edmundson, Stephanie, JASSON 03/13/21 15:38:16 RN 03/13/21 15:38:16 [facility] [place] [facility] - Case Attendance Audit 03/13/21 15:38:16 Poultry Processing Supervisor: [id number] Modifier: [id number] 1 <+> Time Out 1 <*> Procedure Esophagogastroduodenoscopy 2 <+> Time Out 2 <*> Procedure Esophagogastroduodenoscopy 3 <+> Time Out 3 <*> Procedure Esophagogastroduodenoscopy 4 <+> Time Out 4 <*> Procedure Esophagogastroduodenoscopy 5 <+> Time Out 5 <*> Procedure Esophagogastroduodenoscopy 03/13/21 15:35:38 Poultry Processing Supervisor: [id number] Modifier: [id number] 1 <*> Procedure Esophagogastroduodenoscopy 2 <*> Procedure Esophagogastroduodenoscopy 3 <*> Procedure Esophagogastroduodenoscopy 4 <*> Procedure Esophagogastroduodenoscopy 5 <*> Procedure Esophagogastroduodenoscopy 03/13/21 15:28:29 Poultry Processing Supervisor: [id number] Modifier: [id number] 1 <*> Time In 03/13/21 15:25:00 1 <+> Procedure [facility] - Case Times Entry 1 Patient In Room Time 03/13/21 15:25:00 Out Room Time 03/13/21 15:38:00 Anesthesia Start Time 03/13/21 15:25:00 Stop Time 03/13/21 15:36:00 Anesthesia Ready 03/13/21 15:25:00 Surgery / Procedure Times Start Time 03/13/21 15:30:00 Stop Time 03/13/21 15:36:00 Last Modified By: Cnady Bell RN 03/13/21 15:36:56 [facility] - Case Times Audit 03/13/21 15:36:56 Poultry Processing Supervisor: [id number] Modifier: [id number] <+> 1 Out Room Time <+> 1 Stop Time <+> 1 Stop Time 03/13/21 15:31:02 Poultry Processing Supervisor: [id number] Modifier: [id number] <+> 1 Start Time [facility] - [...] Candy Bell, Accompanied by RN, BARTOLOME POND, SUPPLY CHAIN ASSOCIATE, JIG INSPECTOR-ANS Last Modified By: Candy Bell RN 03/13/21 15:28:46 [facility] [place] [facility]o - Endoscopy Details Entry 1 Abdomen [...] Modified By: Candy Bell RN 03/13/21 15:29:03 [facility] [place] Endo - General Case Quarryman 1 Case Information [facility] Endo 01 E Case Level 1 Room Verified Yes Wound Class 2 - Clean-Contaminated Specialty Gastroenterology Anesthesia Type MAC ASA Class 3 Diagnosis Preop Diagnosis Dysphagia Postop Diagnosis Esophageal stricture w/dilitation. Mild gastritis. Wound Class Definitions Last Modified By: Candy Bell RN 03/13/21 15:37:40 [facility] [place] Endo - General Case Data Audit 03/13/21 15:37:40 Poultry Processing Supervisor: [id number] Modifier: [id number] <+> 1 Postop Diagnosis [facility] - [...] Modified By: Candy Bell RN 03/13/21 15:29:48 [facility] [place] Endo - Intraoperative Equipment Entry 1 Type Scope Equipment Intraop Monitoring Electrocardiogram Three lead placement (ECG) Electrode Placement Blood Pressure Arm, left upper Location Pulse Oximeter Hand, right Probe Site Antiembolic Devices Scopes Flexible Endoscopes Gastroscope Used Scope Serial 2543 Number/Identificatio n Number Photo/Video Documentation Photo Yes [...] Positioned By Candy Bell RN, BARTOLOME POND, SUPPLY CHAIN ASSOCIATE, JIG INSPECTOR-ANS, Onel Martin, Shelf Stocker Position Verified Positioning Yes Verified by Surgeon Last Modified By: Candy Bell RN 03/13/21 15:35:39 [facility] - Patient Positioning Audit 03/13/21 15:35:39 Poultry Processing Supervisor: [id number] Modifier: [id number] 1 <*> Procedure Esophagogastroduodenoscopy [facility] - Sign In Entry 1 Patient, Site, Yes Procedure Identified Surgical Consent Yes Confirmed Surgical Site N/A Marked by person performing procedure Allergies No Airway Hypothermia Risk No Warming Measures Yes Taken Last Modified By: Candy Bell RN 03/13/21 15:37:50 [facility] - Sign In Audit 03/13/21 15:37:50 Poultry Processing Supervisor: [id number] Modifier: [id number] <+> 1 Surgical Consent Confirmed [facility] [...] 15:36:00 Physician States Cecum Reached Anesthesia Type [facility] Specialty Gastroenterology Wound Class 2 - Clean-Contaminated Last Modified By: Candy Bell RN 03/13/21 15:38:24 [facility] - Surgical Procedures Audit 03/13/21 15:38:24 Poultry Processing Supervisor: [id number] Modifier: [id number] <+> 1 Stop <+> 2 Stop <+> 3 Stop <+> 4 Stop 03/13/21 15:35:28 Poultry Processing Supervisor: [id number] Modifier: [id number] <+> 1 Start <+> 2 Procedure <+> [...] <+> 4 Additional Procedure Description 03/13/21 15:30:57 Poultry Processing Supervisor: [id number] Modifier: [id number] 1 <*> Procedure Esophagogastroduodenoscopy 1 <+> Specialty [...] Endo - Time Out Audit 03/13/21 15:35:40 Poultry Processing Supervisor: [id number] Modifier: [id number] 1 <*> Procedure to be Performed Esophagogastroduodenoscopy Case Comments <None> Finalized By: Candy Bell RN Document Signatures Signed By: Candy Bell RN 03/13/21 15:38 Electronically signed by [facility] Conversion Cafeteria Or Lunchroom Checker Cerner at 07/09/2022 12:12 PM CDT documented in this encounter Plan of Treatment Not on file documented as of this encounter Visit Diagnoses Not on filedocumented in this encounter Care Teams Scrap Metal Collector Relationship Specialty Start Date End Date Reina Olmedo, SUPPLY CHAIN ASSOCIATE [address] [place] [address] PCP - General Nurse Practitioner 11/14/22 10/01/23 documented as of this encounter
== END 2024-10-13 23:59 | disposition home or self-care (01) ==
LOC: RAD 09:27
PROVIDERS: PCP Nurse Practitioner Family; Visit Provider Physician Assistant
DX: M17.0 Bilateral primary osteoarthritis of knee (principal)
CPT/HCPCS: 73562

== ENCOUNTER 2024-10-18 10:00 | Outpatient (RCR) | payer MEDICAID, SELFPAY ==
--- NOTE | 2024-09-22 16:15 | HMH.OPLYMPH ---
Rehab Inpt Wound Evaluation Rehab OP Lymphedema Evaluation Start: 09/22/24 15:49 Freq: Status: Active Protocol: Document 09/22/24 15:49 ERICKSON (Rec: 09/22/24 16:15 PHORNICOLÁS [id number]) E-signed By Manoj Driscoll, PT Subjective/History History History This is the initial PT lymphedema eval for Yane Oconnor, 53 yowf who presents with B lower leg increased edema x ~ 10 yrs overall with insidious onset of symptoms. She reports no changes in her edema throughout the day, My legs just feels so heavy all the time, every day. She also c/o increased pain in B LE intermittently. She has PMH of OA, anxiety, depression, partial hysterectomy, baratric surgery performed Mar 2024. Subjective Subjective Pain in L LE at this time 5/10, 0/4 TTP noted at this time. 2+ pitting edema from knee distally. Moderate blanchable erythema noted. LLIS score= 82. New diagnosis of No cancer in past 12 months? Lymphedema Eval Classification of Lymphedema Secondary Lymphedema Yes Stemmer's sign Stemmer's Sign yes Stage of Lymphedema Lymphedema stages Stage II (Pitting edema, increased fibrosis w/ decreased pitting) Skin Changes Dry Skin Yes Taut, Shiny Skin Yes Redness Yes Discoloration of Yes Skin Other Changes Yes Pain Scale Pain Scale (0-10) 5 Affected Extremities Areas Affected by Right Lower Extremity,Left Lower Extremity Lymphedema/Edema Lower Extremity Measurements Right MTP Measurement (cm) 24.3 Heel Measurement (cm 34.1 ) 10 cm Proximal to 44.5 Lateral Malleoli Measurement (cm) 20 cm Proximal to 57.8 Lateral Malleoli Measurement (cm) 30 cm Proximal to 53.4 Lateral Malleoli Measurement (cm) 40 cm Proximal to 0 Lateral Malleoli Measurement (cm) 50 cm Proximal to 0 Lateral Malleoli Measurement (cm) 60 cm Proximal to 0 Lateral Malleoli Measurement (cm) Lower Extremity 214.1 Measurement Total ( cm) Left MTP Measurement (cm) 24.4 Heel Measurement (cm 32.0 ) 10 cm Proximal to 43.2 Lateral Malleoli Measurement (cm) 20 cm Proximal to 54.2 Lateral Malleoli Measurement (cm) 30 cm Proximal to 51.3 Lateral Malleoli Measurement (cm) 40 cm Proximal to 0 Lateral Malleoli Measurement (cm) 50 cm Proximal to 0 Lateral Malleoli Measurement (cm) 60 cm Proximal to 0 Lateral Malleoli Measurement (cm) Lower Extremity 205.1 Measurement Total ( cm) Manual Lymphatic Drainage Treatment Area MLD Treatment Area Right Lower Extremity,Left Lower Extremity Wound Problems/Impairments Impairments Problems/ Impaired Endurance,Impaired Walking,Impaired Standing, Impairmments Impaired Dressing,Impaired Shower/Bathing,Impaired Household Care,Impaired Recreational Activities, Increased Edema,Lymphedema Present,Subjective C/O Pain, Impaired Self Care/Self Management Prognosis Rehab Potential Good Comment Skilled therapy is indicated to reduce overall lymphedema burden in order to return pt to PLOF with all ADLs. Clinical Impression Consistent with Yes Diagnosis Short Term Goals Number of Weeks 2 Decrease Edema Yes: 1+ pitting edema to B lower legs Decrease Subjective Yes: 4/10 pain L lower leg C/O Pain Decrease Girth Yes: B LE total by 5 cm ea Measurments by (cm) Fpc Goals Number of Weeks 4 Decrease Edema Yes: No pitting edema to B lower legs Decrease Lymphedema Yes: No fibrotic edema B lower legs Decrease Subjective Yes: 2/10 B lower legs C/O Pain Decrease Girth Yes: B LE total by 15 cm ea. Measurments by (cm) Outpatient Therapy Plan of Care Treatment Plan May Include Therapeutic Exercise Yes Including Home Exercise Program Manual Therapy Yes Techniques Neuromuscular Re- Yes education Therapeutic Yes Activities to Return to Previous Functional/Work Level ADL/Self Care Yes Education Orthotics/Bracing/ Yes Splinting Manual Lymphatic Yes Drainage Eval/Re-Eval Yes Frequency Times per week 2 Duration Number of Weeks 4 Addendums This patient is a No candidate for social or vocational rehab ? Patient/Guardian Yes verbally acknowledges understanding of treatment program and consents to further treatment? Patient/Guardian Yes verbally acknowledges understanding of diagnosis, prognosis and goals for treatment? Eval Complexity PT Charges 97465 - High Complexity PHYSICIAN CERTIFICATION: I certify the specified therapy services for Yane Oconnor are required, authorized, and reviewed every 30 days.
== END 2024-10-18 23:59 | disposition home or self-care (01) ==
LOC: PT 10:00
PROVIDERS: Visit Provider Nurse Practitioner Family
DX: I89.0 Lymphedema, not elsewhere classified (principal)
CPT/HCPCS: 97140; 97163

== ENCOUNTER 2024-11-08 16:49 | Inpatient (IN) | payer MEDICAID, SELFPAY ==
--- OUTSIDE RECORDS SUMMARY | 2023-07-21 12:59 | XMS_ITS | Continuity of Care Document ---
Author Organization [facility] Address [address] [place] [address] Phone Care Team Providers Care Mill Supervisor Name Role Phone Higinio DIETRICH, OPTICAL LABORATORY MECHANIC, Dayanna Unavailable Unavai lable Allergies, Adverse Reactions, [...] by mouth twice daily - Active Nystatin 378580 UNIT/GM External Cream APPLY CREAM TOPICALLY TO [...] Location Reason(s) For Visit Diagnoses Date Provider [facility], [address] [place], [address], [place] tel:[phone] 72 [facility] [place] No Information 4 Sylvester Dayanna. [address] [place], [place], [id number] , [place]. tel: [phone] [facility], [address] [place] [address], [facility], tel:[phone] 72 [facility] [place] No Information 3 Sylvester Dayanna. [address] [place], [place], [id number] , [place]. tel: [phone] [facility], [address] [place] [address], [facility], tel:[phone] 72 [facility] [place] No Information 3 Sylvester Dayanna. [address] [place], [place], [id number] , [place]. tel: [phone] [facility], [address] [place] [address], [facility], tel:[phone] 72 [facility] [place] follow up on labs (chief complaint) ObesityType 2 diabetes mellitus without complicationsEssential (primary) hypertensionHypothyroid ism, unspecifiedIron deficiency anemiaBody mass index [BMI] 50.0-59.9, adultPain in left knee 3 Sylvester Dayanna. [address] [place], [place], [address] , [place]. tel: [phone] [facility], [address] [place] [address], [facility], [place] tel:[phone] 72 [facility] [place] No Information 3 Sylvester Dayanna. [address] [place], [place], [address] , [place]. tel: [phone] [facility], [address] [place] [address], [facility], tel:[phone] 72 [facility] [place] FASTING LABS (chief complaint) Essential (primary) hypertension 3 Sylvester Dayanna. [address] [place], [place], [address] , [place]. tel:[phone] [facility], [address] [place] [address], [facility], tel:[phone] 72 [facility] [place] No Information 3 Sylvester Dayanna. [address] [place], [place], [address] , [place]. tel:[phone] [facility], [address] [place] [address], [facility], tel:[phone] 72 [facility] [place] No Information 3 Sylvester Dayanna. [address] [place], [place], [id number] , . tel:[phone] [facility], [address] [place] [address], [facility], tel:[phone] 72 [facility] No Information 3 Sylvester Dayanna. [address] [place], [place], [address] , [place]. tel: [facility], [address] [place] [address], [facility], tel:[phone] 72 [facility] No Information 3 Sylvester Dayanna. [address] [place], [place], [id number] , [place]. tel:[phone] [facility], [address] [place] [address], [facility], tel:[phone] 72 [facility] [place] establish care (chief complaint) Encounter for screening for depressionEncounter for screening examination for other mental health and behavioral disordersAnxietyDepress ion, unspecifiedEssential (primary) hypertensionHypothyroid ism, unspecifiedType 2 diabetes mellitus without complicationsVitamin D deficiency, unspecifiedGERD disease w/ esophagitis, w/o bleedingObesityBody mass index [BMI] 50.0-59.9, adultEncntr screen mammogram for malignant neoplasm of breast Higinio Alan. [address] [place], [place], [address] , . [phone] Family History Family Member Type Diagnosis Age [...] egistry Payers Payer name Insurance type Covered constitution party ID Authoriza tion(s) [facility] [id number] [facility]- Medicaid Wellcare Wrap Payer [id number] Hc- Covered Under [place] CI [id number] Social History Type Description Quantity Date Captured [...] due Goal Obtain Height, Weight, and B VA. Due on due Goal Unhealthy drug use [...] due Goal Obtain Height, Weight, and B VA. Due on due Goal Pap/HPV testing. Due [...] due Goal Obtain Height, Weight, and B VA. Due on due Goal Unhealthy drug use [...] due Goal Obtain Height, Weight, and B VA. Due on due Goal Vitamin B12. Due [...] due Goal Obtain Height, Weight, and B VA. Due on due Goal Depression screening. Due on due Goal Generalized Anxi ety Disorder - 7 (BOLIVAR-7). Due on due Goal Pap/HPV testing. Due on due Goal Lifestyle education regardin g diet completed Referral Referred To: [facility] Ordered: Referrals: Ophthalmology. [facility]. Location: [place]. Evaluate and treat Appointment date/timeframe: 12/20/2022 ordered Referral Referred To: [facility] Ordered: Referrals: Orthopedic Surgery. [facility]. Location: [place]. Evaluate and treat Appointment date/timeframe: 11/05/2022 ordered Referral Referred To: [facility] [address] [place], [phone] Ordered: Referrals: Bariatric Surgery. [facility]. Location: [facility]. Evaluate and treat Appointment date/timeframe: 1 Month ordered Referral Referred To: [facility] Ordered: Referrals: Radiotherapy. [facility]. Location: [place]. Diagnostic testing Appointment date/timeframe: 08/26/2022 ordered [...] Endoscopy- eferral made to bariatric/GI in [facility] on 08.20.22Shkim is to follow up on the referral and call [phone].SHe has had her mammo- 6.5.23 Bi-Rads Category 1- NegPap- partial hysterectomy he continues to see [facility] for therapy-Med management by Caitlyn Pendleton for sleep- states this is doing goodShe did not refill citalopram- I will send 1 month w/ refillTraci to mangae- next appt Dec 11. Health Advisor appt 8.4- will also see Derm on 8.14Rash on arms- has been there several monthstriamcinalone sent to pharm for nowMontelukast added by cad operator [facility] ANGÉLICA IS HERE TODAY [...] to establish care.She was last seen in [place] by pcp whom manages her DM, hypothyroidism, hypercholesterol, HTN, anxiety/depression.SHe sees an cad operator for multiple food and environmental allergies- [...] [facility]- [facility], and 27[facility]sling only- will [...] an understanding.Referral for weight management made to [facility] Related to Obesity Counseled patients o n [...]
--- OUTSIDE RECORDS SUMMARY | 2023-07-21 12:59 | XMS_ITS | Continuity of Care Document ---
Author Organization [facility] Address [address] [place] [address] Phone Care Team Providers Care Radiologist Physician Name Role Phone Higinio DIETRICH, PRINTED CIRCUIT BOARD PANELS DEVELOPER, Dayanna Unavailable Unavai lable Allergies, Adverse Reactions, [...] by mouth twice daily - Active Nystatin [id number] UNIT/GM External Cream APPLY CREAM TOPICALLY TO [...] Location Reason(s) For Visit Diagnoses Date Provider [facility], [address] [place], [address], [place] tel:[phone] [facility] [place] No Information 4 Sylvester Dayanna. [address], [place], [id number] , [place]. tel: [phone] [facility], [address] [place] [address], [facility], tel:[phone] [facility] [place] No Information 3 Sylvester Dayanna. [address], [place], [id number] , [place]. tel: [phone] [facility], [address] [place] [address], [facility], tel:[phone] [facility] [place] No Information 3 Sylvester Dayanna. [address], [place], [id number] , [place]. tel: [phone] [facility], [address] [place] [address], [facility], tel:[phone] [facility] [place] follow up on labs (chief complaint) ObesityType 2 diabetes mellitus without complicationsEssential (primary) hypertensionHypothyroid ism, unspecifiedIron deficiency anemiaBody mass index [BMI] 50.0-59.9, adultPain in left knee 3 Sylvester Dayanna. [address], [place], [id number] , [place]. tel: [phone] [facility], [address] [place] [address], [facility], [place] tel:[phone] 72 [facility] [place] No Information 3 Sylvester Dayanna. [address], [place], [id number] , [place]. tel: [phone] [facility], [address] [place] [address], [facility], tel:[phone] [facility] [place] [facility] (chief complaint) Essential (primary) hypertension 3 Sylvester Dayanna. [address], [place], [id number] , [place]. tel:[phone] [facility], [address] [place] [address], [facility], tel:[phone] 72 [facility] [place] No Information 3 Sylvester Dayanna. [address], [place], [id number] , [place]. tel:[phone] [facility], [address] [place] [address], [facility], tel:[phone] 72 [facility] [place] No Information 3 Sylvester Dayanna. [address], [place], [id number] , . tel:[phone] [facility], [address] [place] [address], [facility], tel:[phone] 72 [facility] No Information 3 Sylvester Dayanna. [address], [place], [id number] , [place]. tel: [facility], [address] [place] [address], [facility], tel:[phone] 72 [facility] No Information 3 Sylvester Dayanna. [address], [place], [id number] , [place]. tel:[phone] [facility], [address] [place] [address], [facility], tel:[phone] [facility] [place] establish care (chief complaint) Encounter for screening for depressionEncounter for screening examination for other mental health and behavioral disordersAnxietyDepress ion, unspecifiedEssential (primary) hypertensionHypothyroid ism, unspecifiedType 2 diabetes mellitus without complicationsVitamin D deficiency, unspecifiedGERD disease w/ esophagitis, w/o bleedingObesityBody mass index [BMI] 50.0-59.9, adultEncntr screen mammogram for malignant neoplasm of breast Higinio Alan. [address], [place], [id number] , . [phone] Family History Family Member Type Diagnosis Age [...] egistry Payers Payer name Insurance type Covered democrat ID Authoriza tion(s) [id number] [facility]- Medicaid [employer] Payer [id number] Hc- Covered Under [id number] Social History Type Description Quantity Date Captured [...] due Goal Obtain Height, Weight, and B HI. Due on due Goal HIV screen due [...] due Goal Obtain Height, Weight, and B HI. Due on due Goal Unhealthy drug use [...] due Goal Obtain Height, Weight, and B HI. Due on due Goal Taking Statin Medication. [...] due Goal Obtain Height, Weight, and B HI. Due on due Goal Foot exam. Due [...] due Goal Obtain Height, Weight, and B HI. Due on due Goal Depression screening. Due on due Goal Generalized Anxi ety Disorder - 7 (BOLIVAR-7). Due on due Goal Pap/HPV testing. Due on due Goal Lifestyle education regardin g diet completed Referral Referred To: [facility] Ordered: Referrals: Ophthalmology. [facility]. Location: [place]. Evaluate and treat Appointment date/timeframe: 12/20/2022 ordered Referral Referred To: [facility] Ordered: Referrals: Orthopedic Surgery. [facility]. Location: [place]. Evaluate and treat Appointment date/timeframe: 11/05/2022 ordered Referral Referred To: [facility] [address] [place], [phone] Ordered: Referrals: Bariatric Surgery. [facility]. Location: [facility]. Evaluate and treat Appointment date/timeframe: 1 Month ordered Referral Referred To: [facility] Ordered: Referrals: Radiotherapy. [facility]. Location: [place]. Diagnostic testing Appointment date/timeframe: 08/26/2022 ordered History [...] was-? Endoscopy- eferral made to bariatric/GI in [facility] on 08.20.22Shkim is to follow up on the referral and call [phone].SHe has had her mammo- 6.5.23 Bi-Rads Category 1- NegPap- partial hysterectomy he continues to see [facility] for therapy-Med management by Caitlyn Pendleton for sleep- states this is doing goodShe did not refill citalopram- I will send 1 month w/ refillTraci to [facility]- next appt Dec 11. Business Analytics Faculty Member appt 8.4- will also see Derm on 8.14Rash on arms- has been there several monthstriamcinalone sent to pharm for nowMontelukast added by aerial crop duster [facility] ANGÉLICA IS HERE TODAY FOR [...] to establish care.She was last seen in [place] by pcp whom manages her DM, hypothyroidism, hypercholesterol, HTN, anxiety/depression.SHe sees an aerial crop duster for multiple food and environmental allergies- Dr. [...] [facility]- [facility], and 27[facility] to [facility] for counsling only- will ask for them [...] an understanding.Referral for weight management made to [facility] Related to Obesity Counseled patients o n [...]
[2024-11-08] VITALS (12 sets, daily range): BP systolic 96–133; BP diastolic 47–82; PULSE 67–79; RESP 16–20; TEMP 36.5–36.8; O2SAT 99–100; BMI 43.0; BMI 42.2
--- NOTE | 2024-11-08 18:41 | PC.NURSE ---
FSBS reading critically low at this time.
--- NOTE | 2024-11-08 18:50 | HMH.EDGENADL ---
Discharge Plan Disposition Patient Disposition: Admitted Clinical Impressions Clinical Impression: Admitted for observation, Acute hypokalemia, Hypoglycemia, Hypomagnesemia Discharge ED Provider: Kilo Diehl Adult HPI General Chief complaint: Dizziness Stated complaint: Blurry vision Time Seen by Provider: 11/08/24 18:44 Mode of Arrival: Ambulatory Source of Information: Patient Limitations: No Limitations History of Present Illness HPI narrative: Yane Oconnor is a 53-year-old female with a history of diabetes mellitus on glyburide who presents to the emergency department for complaints of an episode of dizziness and blurry vision. Patient states that she had breakfast this morning and was outside for a long time speaking with friends and believes that she got too hot. She states that on the way home, she gradually had bilateral blurry vision and complained of a headache at that time. She did not check her blood sugar. She asked to come to the emergency department. Since arriving to the emergency department, she states that her symptoms have resolved. She denies any weakness, chest pain, shortness of breath, abdominal pain, nausea, vomiting or diarrhea. Her blood sugar on arrival was undetectably low and improved to 40 after juice and crackers. Related Data Home Medications ?Medication ?Instructions ?Recorded ?Confirmed aspirin 81 mg tablet,delayed 81 mg PO DAILY 09/08/23 11/08/24 release (Adult Low Dose Aspirin) lancets 28 gauge (FreeStyle #100 ea 09/08/23 11/08/24 Lancets) levocetirizine 5 mg tablet 5 mg PO DAILY 05/14/24 11/08/24 amitriptyline 25 mg tablet 50 mg PO HS 09/08/24 11/08/24 azelastine 137 mcg (0.1 %) nasal 1 spray intranasal BID 11/08/24 11/08/24 spray cholecalciferol (vitamin D3) 125 125 mcg PO DAILY 11/08/24 11/08/24 mcg (5,000 unit) tablet (Vitamin D3) citalopram 40 mg tablet 40 mg PO HS 11/08/24 11/08/24 ferrous sulfate 325 mg (65 mg 325 mg PO BID 11/08/24 11/08/24 iron) tablet (Iron (ferrous sulfate)) lamotrigine 25 mg tablet (Lamictal) 50 mg PO DAILY 11/08/24 11/08/24 levothyroxine 137 mcg tablet 137 mcg PO DAILY 11/08/24 11/08/24 montelukast 10 mg tablet 10 mg PO HS 11/08/24 11/08/24 nystatin 100,000 unit/gram topical 100,000 unit topical DAILY Itching 11/08/24 11/08/24 powder (Nystop) Previous Rx's ?Medication ?Instructions ?Recorded blood sugar diagnostic (FreeStyle #100 ea 10/17/23 Lite Strips) fluticasone propionate 50 1 spray intranasal DAILY #16 grams 10/17/23 mcg/actuation nasal spray,suspension glimepiride 1 mg tablet 1 mg PO DAILY #90 tabs 05/14/24 hydroxyzine HCl 50 mg tablet 100 mg (2 x 50 mg) PO HS 90 days 05/14/24 #180 tabs losartan 50 mg-hydrochlorothiazide 1 tab PO BID 90 days #180 tabs 05/14/24 12.5 mg tablet omeprazole 40 mg capsule,delayed 40 mg PO DAILY #90 caps 05/14/24 release simvastatin 40 mg tablet 40 mg PO HS #90 tabs 05/14/24 ketoconazole 2 % topical cream 1 applic topical DAILY 14 days #15 06/14/24 grams metoprolol tartrate 25 mg tablet 25 mg PO BID #180 tabs 06/15/24 trazodone 100 mg tablet 100 mg PO DAILY #30 tabs 08/30/24 duloxetine 60 mg capsule,delayed 60 mg PO BID 90 days #180 caps 09/27/24 release Diabetic Shoes (DME) #1 ea 09/28/24 Allergies Allergy/AdvReac Type Severity Reaction Status Date / Time milk AdvReac Mild Rash Verified 10/13/24 10:40 [facility] Disclaimer: The information contained in this section may have been updated after the patient was seen, as this information can be updated by other users. Medical History (Updated 11/09/24 @ 02:05 by Kilo Diehl MD) Rib pain on left side Hypoglycemia PTSD (post-traumatic stress disorder) Generalized anxiety disorder Allergic rhinitis Discoloration and thickening of nails both feet Decreased sensation of foot Other specified symptoms and signs involving the circulatory and respiratory systems Keratosis Callus of heel Bluish skin discoloration Cold extremities Decreased pedal pulses Infestation by bed bug Numbness and tingling of both lower extremities Vomiting Candidal intertrigo Lumbago with sciatica Cutaneous candidiasis Lymphedema Postmenopausal Osteoarthritis Admitted for observation Lymphedema of leg Bipolar 2 disorder, major depressive episode BMI 50.0-59.9, adult Vitamin D deficiency Anxiety and depression GERD (gastroesophageal reflux disease) Hypothyroid HLD (hyperlipidemia) Seasonal allergies HTN (hypertension) Diabetes Cellulitis Candidal intertrigo Left knee pain Right knee pain Surgical History History of bariatric surgery H/O skin graft History of partial hysterectomy Family History Brother Asthma Diabetes Grandfather Asthma Cancer Mother Coronary artery disease Grandmother Diabetes Other Heart attack Hyperlipidemia Hypertension Thyroid disorder Social History (Updated 11/08/24 @ 22:31 by Alva Fontaine RN) Smoking Status: Never smoker how long ago did patient quit smokin years ago alcohol intake: never substance use type: denies use current occupational status: unemployed Travel in the last 8 weeks?: None marital status: legally service: No mcc: No current occupational exposures/hazards: No Hx Recent Travel: No Have you lived/traveled outside US in past 30 days?: No Contact w/someone who lives/traveled outside US past 30 days?: No Exposure to someone with infectious disease in past 14 days?: No Do you have a fever (greater than 100.4 F or 38 C)?: No Have you tested positive for COVID-19?: No Exposed to someone with COVID-19 in past 14 days?: No Do you have a sore throat?: No Do you have a cough?: No Do you have any weakness?: No Are you experiencing any nausea/vomitting?: No Do you have any diarrhea?: No Are you experiencing any unusual bleeding?: No Do you have any muscle aches/pain?: No Do you have any abdominal pain?: No Are you experiencing loss of taste or smell?: No Other Medical History Have you received the Flu Vaccine for this season: No Have you received the Pneumonia Vaccine: No ROS Obtained: Yes Systems reviewed as appropriate & no additional complaints except as documented Physical Exam General General appearance: alert and in no apparent distress Head Head exam: atraumatic Eye Eye exam: Present normal appearance and PERRL ENT ENT exam: Present normal external ear exam Neck Neck exam: Present full ROM Chest Chest inspection: Present symmetric chest wall rise Respiratory Respiratory exam: Present normal lung sounds bilaterally; Absent respiratory distress, wheezes or stridor Cardiovascular Cardiovascular exam: Present regular rate and normal rhythm Abdominal Exam Abdominal exam: Present soft; Absent tenderness or guarding Extremities Exam Extremities exam: Present normal inspection Back Exam Back exam: Present normal inspection Neurological Exam Neurological exam: Present alert, oriented X3 and other (non-focal); Absent motor sensory deficit Psychiatric Psychiatric exam: Present normal affect Skin Skin exam: Present warm and dry Medical Decision Making Medical Records Screening: Per USPSTF and CDC recommendations, given the prevalence of disease in our region, it is our hospital?s policy to screen for HIV and viral Hepatitis for all patients aged 18 and over and those with ongoing risk factors. [place] Inquiry Pt receiving controlled substance: No Vital Signs: 11/08/24 18:50 11/08/24 18:53 11/08/24 19:00 Temperature 97.7 F Temperature Source Oral Pulse Rate 67 70 Pulse Rate [Right Brachial] 69 Respiratory Rate 17 Blood Pressure 96/47 L Blood Pressure [Right Arm] 96/47 L Blood Pressure Mean Blood Pressure Mean [Right Arm] 63 Blood Pressure Source Blood Pressure Source [Right Arm] Automatic Cuff Blood Pressure Position Blood Pressure Position [Right Arm] Supine 02 Sat by Pulse Oximetry 100 100 100 Oxygen Delivery Method Room Air 11/08/24 19:01 11/08/24 19:01 11/08/24 19:30 Temperature Temperature Source Pulse Rate 73 Pulse Rate [Right Brachial] Respiratory Rate Blood Pressure 130/72 133/82 Blood Pressure [Right Arm] Blood Pressure Mean 91 90 Blood Pressure Mean [Right Arm] Blood Pressure Source Blood Pressure Source [Right Arm] Blood Pressure Position Blood Pressure Position [Right Arm] 02 Sat by Pulse Oximetry 100 Oxygen Delivery Method 11/08/24 19:50 11/08/24 20:01 11/08/24 20:10 Temperature Temperature Source Pulse Rate 79 Pulse Rate [Right Brachial] Respiratory Rate Blood Pressure 102/58 L Blood Pressure [Right Arm] Blood Pressure Mean 72 Blood Pressure Mean [Right Arm] Blood Pressure Source Blood Pressure Source [Right Arm] Blood Pressure Position Blood Pressure Position [Right Arm] 02 Sat by Pulse Oximetry 100 Oxygen Delivery Method Room Air 11/08/24 20:43 11/08/24 20:45 11/08/24 20:46 Temperature 98.2 F Temperature Source Oral Pulse Rate 75 76 Pulse Rate [Right Brachial] Respiratory Rate 20 Blood Pressure 102/53 L 102/53 L Blood Pressure [Right Arm] Blood Pressure Mean 75 Blood Pressure Mean [Right Arm] Blood Pressure Source Automatic Cuff Blood Pressure Source [Right Arm] Blood Pressure Position Sitting Blood Pressure Position [Right Arm] 02 Sat by Pulse Oximetry 100 Oxygen Delivery Method Room Air 11/08/24 21:00 11/08/24 21:07 Temperature Temperature Source Pulse Rate 76 Pulse Rate [Right Brachial] Respiratory Rate Blood Pressure Blood Pressure [Right Arm] Blood Pressure Mean Blood Pressure Mean [Right Arm] Blood Pressure Source Blood Pressure Source [Right Arm] Blood Pressure Position Blood Pressure Position [Right Arm] 02 Sat by Pulse Oximetry 100 Oxygen Delivery Method Room Air Lab Data Lab Results 11/08/24 18:50: WBC 3.7 L, RBC 3.60 L, Hgb 10.8 L, Hct 31.6 L, MCV 87.8, MCH 30.0, MCHC 34.2, RDW 16.5, Plt Count 245, MPV 8.5, Neut % (Auto) 47.3, Lymph % (Auto) 40.9, [place] % (Auto) 10.1 H, Eos % (Auto) 1.1, Baso % (Auto) 0.3, Neut # (Auto) 1.7 L, Lymph # (Auto) 1.5, [place] # (Auto) 0.4, Eos # (Auto) 0.0, Baso # (Auto) 0.0, VBG pH 7.40, VBG pCO2 44.2, VBG pO2 46.4 H, VBG HCO3 26.7, VBG Total CO2 28.1 H, VBG O2 Saturation 78.1 H, VBG Base Excess 1.9, VBG Lactic Acid 1.1, Sodium 136, Potassium 2.4 L*, Chloride 101, Carbon Dioxide 29, Anion Gap 8.4, BUN 19 H, Creatinine 1.00, Estimated Creat Clear 48, Estimated GFR 58 L, Est GFR ( Amer) 71, Glucose 46 L*, Calcium 7.8 L, Magnesium 1.4 L, Total Bilirubin 0.7, AST 47 H, ALT 33, Alkaline Phosphatase 113, Troponin I < 0.01, Total Protein 5.2 L, Albumin 2.5 L, Globulin 2.7, Albumin/Globulin Ratio 0.9 L 11/08/24 18:50 11/08/24 18:50 Orders (Tests/Meds): ED MEDICATIONS Generic Name Dose Route Start Last Admin Trade Name Freq PRN Reason Stop Dose Admin Acetaminophen 650 mg 11/08/24 20:52 Acetaminophen 325mg Tab PO 12/08/24 20:51 Q4HP PRN Fever or Mild Pain (1-3) Dextrose 25 ml 11/08/24 23:39 11/08/24 23:45 Dextrose 50% 50ml Syringe (Crash Cart) IVP 11/08/24 23:40 25 ml ONCE ONE Administration Enoxaparin Sodium 40 mg 11/09/24 09:00 Enoxaparin 40mg/0.4ml Syringe SUBCUT 12/09/24 08:59 DAILY MARIZA Dextrose 1,000 mls @ 100 mls/hr 11/08/24 19:15 11/08/24 19:14 Dext 5% In Water 1000mls IV 12/08/24 19:14 125 mls/hr .Q10H MARIZA Administration Sodium Chloride 10 ml 11/08/24 20:52 Sodium Chloride 0.9% 10ml Flush Syringe IV 12/08/24 20:51 NEEDED PRN Maintain IV Site Discontinued Medications Generic Name Dose Route Start Last Admin Trade Name Freq PRN Reason Stop Dose Admin Potassium Chloride/Water 100 mls @ 100 mls/hr 11/08/24 19:30 11/08/24 23:50 Potassium Chloride 10meq/100ml Ivpb IV 11/08/24 21:29 Infused Q1H MARIZA Infusion Magnesium Sulfate 2 gm in 50 mls @ 50 mls/hr 11/08/24 19:31 11/08/24 22:44 Magnesium Sulfate 2gm/50ml Premix IV 11/08/24 20:30 Infused ONCE ONE Infusion Ondansetron HCl 4 mg 11/08/24 19:28 11/08/24 19:33 Ondansetron 4mg/2ml Vial IV 11/08/24 19:29 4 mg ONCE ONE Administration Potassium Chloride 80 meq 11/08/24 19:30 11/08/24 20:45 Potassium Chloride 20meq Tab PO 11/08/24 19:31 80 meq ONCE ONE Administration ORDERS Category Date Time Status Consult to Case Management [CONS] Routine Cons 11/08/24 20:52 Active Consult to Dietary [Nutrition Consult] [CONS] Routine Cons 11/08/24 20:57 Active CBC w/Auto Diff [Complete Blood Count Auto Diff] Stat Lab 11/08/24 18:50 Completed CMP [Comprehensive Metabolic Panel] Stat Lab 11/08/24 18:50 Completed Complete Blood Count Auto Diff AMLAB Lab 11/09/24 06:00 Ordered Comprehensive Metabolic Panel AMLAB Lab 11/09/24 06:00 Ordered Magnesium AMLAB Lab 11/09/24 06:00 Ordered Magnesium Stat Lab 11/08/24 18:50 Completed Troponin I Q3H Lab 11/08/24 21:50 Completed Troponin I Q3H Lab 11/09/24 01:23 Received Troponin I Stat Lab 11/08/24 18:50 Completed VBG [Venous Blood Gas] Stat RT 11/08/24 18:50 Completed ECG Data Tracing #1: I reviewed this ECG and interpreted as documented below: Normal sinus rhythm. No ST elevation or depression. QTc of 434 Medical Decision Narrative: Yane Oconnor is a 53-year-old female with a history of diabetes mellitus on glyburide who presents to the emergency department for complaints of an episode of dizziness and blurry vision. Patient states that she had breakfast this morning and was outside for a long time speaking with friends and believes that she got too hot. She states that on the way home, she gradually had bilateral blurry vision and complained of a headache at that time. She did not check her blood sugar. She asked to come to the emergency department. Since arriving to the emergency department, she states that her symptoms have resolved. She denies any weakness, chest pain, shortness of breath, abdominal pain, nausea, vomiting or diarrhea. Her blood sugar on arrival was undetectably low and improved to 40 after juice and crackers. On arrival, patient is hemodynamically stable, afebrile, alert and breathing comfortably on room air. At the time my evaluation, she states that her symptoms have since resolved. Her initial glucose as stated above was undetectably low and she was receiving juice and crackers. Repeat fingerstick blood glucose showed mild improvement to 40. Patient receiving additional juice and crackers at this time. Physical exam without focal neurological deficit. Cardiopulmonary exams unremarkable. Abdomen is soft, nontender nondistended. She is GCS 15. Differential diagnosis includes, but is not limited to: Hypoglycemia, electrolyte derangement, cardiac arrhythmia, ACS, among others. The most morbid conditions were considered and workup was based on these. Workup included: EKG, troponin, magnesium level, CMP, VBG, CBC with differential, urinalysis, chest x-ray EKG without evidence of ischemia, as stated above Laboratory studies showed leukopenia with white blood cell count of 3.7, mildly low hemoglobin of 10.8 (baseline is around 12). VBG with normal lactate and normal pH of 7.4. CMP showed a significantly low potassium of 2.4 (replacing with oral and IV potassium. Magnesium is also low at 1.4 (will replace with 2 g of IV magnesium sulfate). No MEERA. Initial troponin less than 0.01. Patient's repeat glucose after additional juice and crackers was 65. Due to patient's continued hypoglycemia in the setting of hypokalemia and hypomagnesemia, is felt that she would benefit for admission for continued correction of her electrolyte derangements and glycemic control. I discussed patient's case with the hospitalist team who agreed to admit the patient for further management. Critical Care Critical Care Time Critical Care Time: No
--- OUTSIDE RECORDS SUMMARY | 2024-11-08 18:54 | XMS_ITS | Encounter Summary ---
Author Organization [employer] ([place], [place], [place], [place]) Address [address] [place] [address] Care Team Providers Care Windmill Technician Name Role Phone NellieReina hancock Nilsa TAMEZ Primary Care Provider [phone] Encounter Details Date Type Department Care Team (Late st Contact Info) Description 12/02/2019 Transcribed Document [facility] [place] [address] [place] [address] ProviderVeronica MD [address] [place] [address] Social History Tobacco Use Types [...] Veronica ProviderMD - 12/02/2019 4:45 PM CDT [place] [id number] YANE REBOLLEDO :1970 Visit Time:12/02/2019 What to [...] activities are safe for you. ??? Take risk-oth-qhldzun and prescription medicines only as told by [...] Reviewed: 10/24/2017 Elsevier Patient Education ?? 2020 [employer] Myomectomy, Care After This sheet gives [...] these instructions at home: Medicines ??? Take clgl-aac-xuvaccg and prescription medicines only as told by [...] and water are not available, use hand print support specialist. ? Change your dressing as told by [...] urine clear or pale yellow. ? Take jslc-rcg-efordzn or prescription medicines. ? Eat foods that [...] 07/31/2011 Document Revised: 02/20/2018 Document Reviewed: 04/10/2017 [employer] Patient Education ?? 2020 [employer]. Hysteroscopy, Care After This sheet gives you [...] taking prescription pain medicines. Medicines ??? Take jjcu-vvk-mybomog and prescription medicines only as told by [...] urine clear or pale yellow. ? Take myps-tcy-tghoyjf or prescription medicines. ? Eat foods that [...] 12/29/2013 Document Revised: 02/20/2018 Document Reviewed: 04/08/2017 [employer] Patient Education ?? 2020 [employer]. acetaminophen and oxycodone (a SEET a MIN [...] may report side effects to FDA at 8-993-OXX-8857. What other drugs will affect acetaminophen and [...] affect acetaminophen and oxycodone, including prescription and ditl-dxt-mptraqe medicines, vitamins, and herbal products. Not all [...] to ensure that the information provided by [employer]. ('[employer]') is accurate, up-to-date, and complete, but no guarantee is made to that effect. Drug information contained herein may be time sensitive. [employer] information has been compiled for use by healthcare practitioners and consumers in the [place] and therefore [employer] does not warrant that uses outside of the [place] are appropriate, unless specifically indicated otherwise. [employer]'s drug information does not endorse drugs, diagnose patients or recommend therapy. [employer] drug information is an informational resource designed [...] effective or appropriate for any given patient. [facility] does not assume any responsibility for any aspect of healthcare administered with the aid of information [facility] provides. The information contained herein is not intended to cover all possible uses, directions, precautions, warnings, drug interactions, allergic reactions, or adverse effects. If you have questions about the drugs you are taking, check with your doctor, nurse or pharmacist. Copyright 1160-0116 [facility]. Version: .. Revision Date: 04/14/2019. ibuprofen (EYE bue PROE fen) Advil, Genpril, IBU, Midol IB, Motrin IB, Proprinal, Smart Sense Children's Ibuprofen What is the most important information I should know about ibuprofen? Ibuprofen can increase your risk of fatal heart attack or stroke, especially if you use it intermediate accountant or take high doses, or if you [...] or stroke, especially if you use it residential or take high doses, or if you [...] may report side effects to FDA at 8-455-NCU-0471. What other drugs will affect ibuprofen? Ask [...] may interact with ibuprofen, including prescription and stgu-ltn-irqomgh medicines, vitamins, and herbal products. Not all [...] to ensure that the information provided by [employer]. ('[employer]') is accurate, up-to-date, and complete, but no guarantee is made to that effect. Drug information contained herein may be time sensitive. [employer] information has been compiled for use by healthcare practitioners and consumers in the [place] and therefore [employer] does not warrant that uses outside of the [place] are appropriate, unless specifically indicated otherwise. [employer] drug information does not endorse drugs, diagnose patients or recommend therapy. [facility] [employer] drug information is an informational resource designed [...] effective or appropriate for any given patient. [employer] does not assume any responsibility for any aspect of healthcare administered with the aid of information [employer] provides. The information contained herein is not intended to cover all possible uses, directions, precautions, warnings, drug interactions, allergic reactions, or adverse effects. If you have questions about the drugs you are taking, check with your doctor, nurse or pharmacist. Copyright 6548-7247 [employer]. Version: 21.. Revision Date: 04/05/2019. Emergency Awareness [...] Assistance with quitting is available by contacting 1-482-VENE-NOW. This is a free resource providing counseling, [...] was given the opportunity to ask questions. Patient/Manager Latin Name: Patient/Manager Latin Signature: Relationship to Patient: Clinician/Hospital Manager Latin Signature: Date: Electronically signed by Interface, [facility] Conversion Bowl Topper Cerner at 07/09/2022 12:14 PM CDT documented in this encounter Plan of Treatment Not on file documented as of this encounter Visit Diagnoses Not on filedocumented in this encounter Care Teams Windmill Technician Relationship Specialty Start Date End Date , Reina Ash, TOOL CLERK [address] [place] [address] PCP - General Nurse Practitioner 11/14/22 10/01/23 documented as of this encounter
--- OUTSIDE RECORDS SUMMARY | 2024-11-08 18:54 | XMS_ITS | Encounter Summary ---
Author Organization [employer] ([place], [place], [place], [place]) Address [address] [place] [address] Care Team Providers Care Store Facility Technician Name Role Phone Nelliekarissa Riena Nilsa TAMEZ Primary Care Provider [phone] Encounter Details Date Type Department Care Team (Late st Contact Info) Description 12/02/2019 Transcribed Document [facility] [place] Medicine [address] [place] [address] ProviderVeronica MD [address] [place] [address] Social History Tobacco Use Types [...] Body Mass Index : 55 kg/m2 (>HHI) [place] Body Weight : 45 kg CLINTON CASTAÑEDA [...] CLINTON CASTAÑEDA RN - 12/02/2019 12:59 EDT [place] Suicide Severity Rating Scale (C-SSRS) CSSRS Past [...] #2 Relationship : . Primary Language : Kyrgyz Preferred Communication Mode : Verbal Communication Barrier : None Supervisor Publications Production Needed : CLINTON Vaca RN - 12/02/2019 [...] Scale Risk Level : 25-45 Medium Risk [place] Fall Interventions : Adequate lighting, Bed in [...] the text rendition version of the form. [place] Coma [place] Best Motor Response : Obey commands [place] Best Verbal Response : Oriented Neal Eye Opening Response : Spontaneous Neal Coma Score : 15 CLINTON CASTAÑEDA, RN - 12/02/2019 12:59 EDT Electronically signed by [facility], [facility] Conversion Code Number Stamper Cerner at 07/09/2022 12:14 PM CDT documented in this encounter Plan of Treatment Not on file documented as of this encounter Visit Diagnoses Not on filedocumented in this encounter Care Teams Store Facility Technician Relationship Specialty Start Date End Date Reina Olmedo, FORMS ANALYST [address] [place] [address] PCP - General Nurse Practitioner 11/14/22 10/01/23 documented as of this encounter
--- OUTSIDE RECORDS SUMMARY | 2024-11-08 18:54 | XMS_ITS | Encounter Summary ---
Author Organization [employer] ([place], [place], [place], [place]) Address [address] [place] [address] Care Team Providers Care Instructor Of Sociology Name Role Phone Reina Olmedo APRN Primary Care Provider +1 [phone] Encounter Details Date Type Department Care Team (Late st Contact Info) Description 08/03/2020 Transcribed Document [facility] [place] [place] [address] [place] [address] ProviderVeronica MD [address] [place] [address] Social History Tobacco Use Types [...] ANGÉLICA REBOLLEDO/Sex: 1970 Female Med Rec #: [id number] Physician: YOU HAWTHORNE MD-OBG Financial #: [id number] Pt. Type: O Room/Bed: [facility] Admit/Disch: 08/03/20 03:59:00 - Institution: E IntraOp Case Attendance Entry 1 Entry 2 Entry 3 Case Attendee YOU HAWTHORNE Holliday, Stewart R, RN LOVELY VELEZ PA-C MD-OBG Role Performed Surgeon/Proceduralist, Tare Worker, First Physician physician office assistant First Time In 08/03/20 09:42:00 08/03/20 [...] BREANNA HOWE TAYLOR, SARAH, ST Sharp, Mark MILD DISABILITIES TEACHER Role Performed MILD DISABILITIES TEACHER/Nurse Manager Construction Scrub, First Scrub, Second Time In 08/03/20 [...] E IntraOp Case Attendance Audit 08/03/20 11:31:44 Coin Machine Operator: JERONIMO Modifier: JERONIMO 1 <+> Time In [...] SJE IntraOp Case Times Audit 08/03/20 11:31:43 Coin Machine Operator: WALTERIDSR Modifier: HOLLIDSR <+> 1 Out Room Time <+> 1 Stop Time 08/03/20 11:25:20 Coin Machine Operator: HOLLIDSR Modifier: HOLLIDSR <+> 1 Stop Time 08/03/20 10:06:00 Coin Machine Operator: WALTERIDSR Modifier: HOLLIDSR <+> 1 Start Time [...] 10:06:35 S[facility] IntraOp Cautery Audit 08/03/20 10:06:35 Coin Machine Operator: JERONIMO Modifier: HOLLIDSR 1 <*> Cut Setting [...] SJE IntraOp Counts Final Audit 08/03/20 11:11:48 Coin Machine Operator: WALTERADIN Modifier: WALTERIDSR 1 <*> Procedure Abdominal [...] Foster Avilez, Accompanied by RN, BREANNA HOWE, MILD DISABILITIES TEACHER Last Modified By: Foster Avilez RN 08/03/20 [...] Yes Assessment Complete Fire Risk Foster Avilez senior application security consultant Verified By Fire Risk 08/03/20 09:34:00 Assessment Verified Date/Time Fire Risk Standard Fire Yes Safety Precautions Followed Last Modified By: Foster Avilez RN 08/03/20 09:34:03 SJE IntraOp General Case Dry Cleaner Helper 1 Case Information OR OR 07 SJE Case Level 1 Room Verified Yes Wound Class II - Clean-Contaminated Specialty Gynecology Anesthesia Type General ASA Class 3 Diagnosis Preop Diagnosis pelvic pain, AUB Postop Diagnosis refer to MD notes Last Modified By: Foster Avilez RN 08/03/20 10:06:54 SJE IntraOp General Case Data Audit 08/03/20 10:06:54 Coin Machine Operator: JERONIMO Modifier: JERONIMO <+> 1 ASA Class [...] 0.5% w/ epinephrine 1:200,000 30ml vial - [id number] Route of local Administration Dose Dose 30 [...] Labeled and Displayed Last Modified By: Foster Avilze RN 08/03/20 10:06:24 Case Comments <None> Finalized By: Foster Avilez, RN Document Signatures Signed By: Foster Avilez RN 08/03/20 11:31 documented in this encounter Plan of Treatment Not on file documented as of this encounter Visit Diagnoses Not on filedocumented in this encounter Care Teams Instructor Of Sociology Relationship Specialty Start Date End Date Reina Olmedo, MUSEUM DIRECTOR [address] [place] [address] PCP - General Nurse Practitioner 11/14/22 10/01/23 documented as of this encounter
--- OUTSIDE RECORDS SUMMARY | 2024-11-08 18:54 | XMS_ITS | Encounter Summary ---
Author Organization [employer] ([place], [place], [place], [place]) Address [address] [place] [address] Care Team Providers Care Construction Materials Tester Name Role Phone Reina Olmedo DASHAWN Primary Care Provider [phone] [phone] Encounter Details Date Type Department Care Team (Late st Contact Info) Description 07/27/2020 Transcribed Document [facility] [place] [address] [place] [address] ProviderVeronica MD [address] [place] [address] Social History Tobacco Use Types [...] 07/27/2020 11:47 EDT Electronically signed by Deyvi [facility] Conversion Aeroplane Pilot Cerner at 07/09/2022 12:38 PM CDT documented in this encounter Plan of Treatment Not on file documented as of this encounter Visit Diagnoses Not on filedocumented in this encounter Care Teams Construction Materials Tester Relationship Specialty Start Date End Date Reina, JUMBO OPERATOR [address] [place] [address] PCP - General Nurse Practitioner 11/14/22 10/01/23 documented as of this encounter
--- OUTSIDE RECORDS SUMMARY | 2024-11-08 18:54 | XMS_ITS | Encounter Summary ---
Author Organization [employer] ([place], [place], [place], [place]) Address [address] [place] [address] Care Team Providers Care Vacuum Frame Operator Name Role Phone Reina Olmedo APRN Primary Care Provider [phone] [phone] Encounter Details Date Type Department Care Team (Late st Contact Info) Description 08/03/2020 Transcribed Document [place] Family Medicine [address] [place] [address] ProviderVeronica MD [address] [place] [address] Social History Tobacco Use Types [...] YANE REBOLLEDO/Sex: 1970 Female Med Rec #: [id number] Physician: YOU HAWTHORNE MD-OBG Financial #: [id number] Pt. Type: O Room/Bed: [facility] Admit/Disch: 08/03/20 03:59:00 - Institution: JAZMYN PreOp Case Times Entry 1 In Preop 08/03/20 07:55:00 Ready for Holding 08/03/20 08:51:00 Room Patient Ready for 08/03/20 08:51:00 Surgery Patient Out of Preop 08/03/20 09:38:00 Patient Out of n/a Holding Room Last Modified By: CLINTON CASTAÑEDA RN 08/03/20 12:23:54 JAZMYN PreOp Case Times Audit 08/03/20 12:23:54 Facility Operations Manager: IESHA Modifier: YULI <+> 1 Patient Out of Preop Finalized By: CLINTON CASTAÑEDA, RN Document Signatures Signed By: CLINTON CASTAÑEDA RN 08/03/20 12:23 documented in this encounter Plan of Treatment Not on file documented as of this encounter Visit Diagnoses Not on filedocumented in this encounter Care Teams Vacuum Frame Operator Relationship Specialty Start Date End Date Reina Olmedo, DIRECTOR PAYMENT [address] [place] [address] PCP - General Nurse Practitioner 11/14/22 10/01/23 documented as of this encounter
--- OUTSIDE RECORDS SUMMARY | 2024-11-08 18:54 | XMS_ITS | Encounter Summary ---
Author Organization [employer] ([place], [place], [place], [place]) Address [address] [place] [address] Care Team Providers Care Chocolate Temperer Name Role Phone Reina Olmedo DASHAWN Primary Care Provider [phone] [phone] Encounter Details Date Type Department Care Team (Late st Contact Info) Description 07/27/2020 Transcribed Document [facility] [place] [address] [place] [address] ProviderVeronica MD [address], [place] [...] Female : 1970 Associated Diagnoses: None Author: FBAIENNE LU [facility] Basic Information Building Maintenance Custodian: Rosa Jean-Baptiste MD Chief Complaint Pre-op clearance; DATA WAREHOUSING MANAGER surgery Abnormal stress. History of Present Illness [...] Refill(s) Problem list: All Problems Arthritis / 9196556 / Confirmed Diabetes / 690726447 / Confirmed History of obstructive sleep apnea / 07441916 / Confirmed Hyperlipidemia / 60291956 / Confirmed Hypertension / 1138164567 / Confirmed Hypothyroid / 21220683 / Confirmed Anxiety and depression / 386902651 / Confirmed Histories No education data available. 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 PLAN; Left Heart Catheterization w/ possibility of PCI via right radial artery. Risks and Benefits discussed. Patient wishes to proceed. Minimize NSAIDS. IVF hydration. Hold Metformin 48 hr post cath. Discussed low carb diet (100 gram/d), portion control (30% less every dinner), Na restriction, referral to floatman. Follow-up w/ ROSIO MD. Encourage pt to discuss SGLT2i (Involkana, Farxiga)/GLP1a w/ primary provider. documented in this encounter Plan of Treatment Not on file documented as of this encounter Visit Diagnoses Not on filedocumented in this encounter Care Teams Chocolate Temperer Relationship Specialty Start Date End Date Reina Olmedo, LOST AND FOUND CLERK [address] [place] [address] PCP - General Nurse Practitioner 11/14/22 10/01/23 documented as of this encounter
--- OUTSIDE RECORDS SUMMARY | 2024-11-08 18:54 | XMS_ITS | Encounter Summary ---
Author Organization [employer] ([place], [place], [place], [place]) Address [address] [place] [address] Care Team Providers Care Lead Assistant Manager Name Role Phone Nelliekarissa Reina Ash APRN Primary Care Provider [phone] [phone] Encounter Details Date Type Department Care Team (Late st Contact Info) Description 08/03/2020 Transcribed Document [facility] [place] [address] [place] [address] ProviderVeronica MD [address] [place] [address] Social History Tobacco Use Types [...] % Oxygen Therapy Mode : Room air aKthe De Souza RN - 08/03/2020 8:32 EDT Pain Assessment Pain Assessment : Initial assessment Pain Scale Goal : 4 Pain Scale Used : 0-10 Scale Kathe De Souza RN - 08/03/2020 8:32 EDT Height and Weight, Clinical Dosing Height Source : Stated Height Entry Format : [place] Height, Feet : 5 ft(Converted to: 152 cm, 60 Inch) Height, Inches : 0 Inch(Converted to: 0 ft 0 Inch, 0.00 cm) Clinical Height : 152.4 cm Weight Source : Standing scale Weight Entry Format : [place] Clinical Dosing Weight : 126.36 kg Weight, Pounds : 278 lb Body Surface Area (BSA) : 2.15 m2 Body Mass Index : 54.4 kg/m2 (>HHI) [place] Body Weight : 45 kg Kathe De [...] De Souza RN - 08/03/2020 8:32 EDT [place] Suicide Severity Rating Scale (C-SSRS) CSSRS Past [...] Date/Time : 08/03/2020 7:55 EDT Support Person/Patient Feeder Loader : Yes Want Family/Rep/Phys Notified of Admit : No Emergency Contact #1 : Meryl Cervantes Emergency Contact #1 Emergency Contact #1 Relationship : mother Emergency Contact #2 : - Emergency Contact #2 Phone Number : - Emergency Contact #2 Relationship : - Information Obtained From : Patient Primary Language : Ukrainian Preferred Communication Mode : Verbal Communication Barrier : None Pneumatic Riveter Needed : No Kathe De Souza RN [...] on filedocumented in this encounter Care Teams Lead Assistant Manager Relationship Specialty Start Date End Date Reina Olmedo, DIRECTOR RISK [address] [place] [address] PCP - General Nurse Practitioner 11/14/22 10/01/23 documented as of this encounter
--- OUTSIDE RECORDS SUMMARY | 2024-11-08 18:54 | XMS_ITS | Encounter Summary ---
Author Organization [employer] ([place], [place], [place], [place]) Address [address] [place] [address] Care Team Providers Care Dial Brusher Name Role Phone NellieReina hancock Nilsa TAMEZ Primary Care Provider [phone] [phone] Encounter Details Date Type Department Care Team (Late st Contact Info) Description 08/03/2020 Transcribed Document [facility] [place] [address] [place] [address] ProviderVeronica MD [address] [place] [address] Social History Tobacco Use Types [...] On: 08/03/2020 12:56 EDT by Dennis Gamino, Biztalk Consultant Cert Meds to Bed Enrollment Patient Enrollment Decision: : Yes/enroll in meds to bed program Meds to Beds Comment : Dennis Bernal, [employer] Consultant Cert - 08/04/2020 11:46 EDT documented in this encounter Plan of Treatment Not on file documented as of this encounter Visit Diagnoses Not on filedocumented in this encounter Care Teams Dial Brusher Relationship Specialty Start Date End Date Reina, PERCOLATOR OPERATOR [address] [place] [address] PCP - General Nurse Practitioner 11/14/22 10/01/23 documented as of this encounter
--- OUTSIDE RECORDS SUMMARY | 2024-11-08 18:54 | XMS_ITS | Encounter Summary ---
Author Organization [employer] ([place], [place], [place], [place]) Address [address] [place] [address] Care Team Providers Care Foreign Service Officer Name Role Phone NellieReina hancock Nilsa TAMEZ Primary Care Provider [phone] [phone] Encounter Details Date Type Department Care Team (Late st Contact Info) Description 07/27/2020 Transcribed Document [facility] [place] [address] [place] [address] ProviderVeronica MD [address] [place] [address] Social History Tobacco Use Types [...] to thoroughly wash your hands, use hand theatrical variety agent. While handwashing is best, hand theatrical variety agent helps to reduce the spread of germs when you are out and about. Have hand theatrical variety agent in several locations so you can always [...] keep people from also getting sick. Don???t [place] It! Sneezing this time of year is [...] a PCP near you, please visit [employer] [email or web address]. May 28, 2019 Carbohydrate Counting for [...] different for every person. A diet and performance specialist (registered dietitian) can help you make [...] of carbohydrates: ? hamburger bun or ? Croatian muffin. ? oz (15 mL) syrup. ? [...] foods that contain carbohydrates: ??? Rice. ??? [place]. ??? Milk. ??? Strawberries. 2. Calculate how [...] manage your diabetes. ??? A diet and performance specialist (registered dietitian) can help you make a meal plan and calculate how many carbohydrates you should have at each meal and snack. This information is not intended to replace advice given to you by your health care provider. Make sure you discuss any questions you have with your health care provider. Document Revised: 10/02/2017 Document Reviewed: 08/21/2016 [employer] Patient Education ? 2020 [employer] Diabetes Mellitus and Nutrition, Adult When [...] that you work with a diet and performance specialist (dietitian) to make a meal plan [...] glucose? Where to find more information: ??? [place] Diabetes Association: diabetes.org ??? Academy of Nutrition and Dietetics: www.eatright.org ??? National Trinity of Diabetes and Digestive and Kidney Diseases (NIH): www.niddk.nih.gov Summary ??? A healthy meal plan will help you control your blood glucose and maintain a healthy lifestyle. ??? Working with a diet and performance specialist (dietitian) can help you make a [...] provider. Document Revised: 02/20/2018 Document Reviewed: 04/14/2017 [employer] Patient Education ? 2020 [employer] Moderate Conscious Sedation, Adult, Care After [...] you are awake and alert. ??? Take hblv-otq-eoetawn and prescription medicines only as told by [...] provider. Document Revised: 02/20/2018 Document Reviewed: 06/29/2016 [employer] Patient Education ? 2020 [employer] Radial Site Care This sheet gives [...] these instructions at home: Medicines ??? Take jwyh-cyo-mstjlrz and prescription medicines only as told by your health care provider. Insertion site care ??? Follow instructions from your health care provider about how to take care of your insertion site. Make sure you: ? Wash your hands with soap and water before you change your bandage (dressing). If soap and water are not available, use hand theatrical variety agent. ? Change your dressing as told by [...] provider. Document Revised: 04/15/2018 Document Reviewed: 04/15/2018 [employer] Patient Education ? 2020 [employer] Transradial Angiogram A transradial angiogram is [...] including vitamins, herbs, eye drops, creams, and lqci-isz-hcixdme medicines. ??? Any problems you or family [...] tells you to take them. ??? Taking pnrp-eux-lkmqbug medicines, vitamins, herbs, and supplements. Exams and [...] provider. Document Revised: 02/01/2019 Document Reviewed: 02/01/2019 [employer] Patient Education ? 2019 [employer]. Radiology Coronary Angiogram A coronary angiogram is [...] including vitamins, herbs, eye drops, creams, and ebis-wim-bmejine medicines. ??? Any problems you or family [...] do not normally take it. ??? Taking tnfk-cqw-rpasdrv medicines, vitamins, herbs, and supplements. General instructions [...] Reviewed: 09/30/2019 Elsevier Patient Education ? 2020 [employer] documented in this encounter Plan of Treatment Not on file documented as of this encounter Visit Diagnoses Not on filedocumented in this encounter Care Teams Foreign Service Officer Relationship Specialty Start Date End Date Reina Olmedo, CHASSIS WIRER [address] [place] [address] PCP - General Nurse Practitioner 11/14/22 10/01/23 documented as of this encounter
--- OUTSIDE RECORDS SUMMARY | 2024-11-08 18:54 | XMS_ITS | Encounter Summary ---
Author Organization [employer] ([place], [place], [place], [place]) Address [address] [place] [address] Care Team Providers Care Scarfer Operator Name Role Phone NellieReina hancock Nilsa TAMEZ Primary Care Provider [phone] [phone] Encounter Details Date Type Department Care Team (Late st Contact Info) Description 07/27/2020 Transcribed Document [facility] [place] [address] [place] [address] ProviderVeronica MD [address] [place] [address] Social History Tobacco Use Types [...] 07/27/2020 13:07 EDT Electronically signed by Deyvi [facility] Conversion Compliance Paralegal Cerner at 07/09/2022 12:17 PM CDT documented in this encounter Plan of Treatment Not on file documented as of this encounter Visit Diagnoses Not on filedocumented in this encounter Care Teams Scarfer Operator Relationship Specialty Start Date End Date Reina, CUSTOMER LOGISTICS MANAGER [address] [place] [address] PCP - General Nurse Practitioner 11/14/22 10/01/23 documented as of this encounter
--- OUTSIDE RECORDS SUMMARY | 2024-11-08 18:54 | XMS_ITS | Encounter Summary ---
Author Organization [employer] ([place], [place], [place]) Address [address] [place] [address] Care Team Providers Care Campus Safety Officer Name Role Phone Reina Olmedo DASHAWN Primary Care Provider [phone] [phone] Encounter Details Date Type Department Care Team (Late st Contact Info) Description 07/27/2020 Transcribed Document [facility] [place] [address] [place] [address] ProviderVeronica MD [address] [place] [address] Social History Tobacco Use Types [...] Veronica ProviderMD - 07/27/2020 2:48 PM CDT [address] [place] [address] YANE REBOLLEDO :1970 Visit Time:07/27/2020 Your Visit Summary Your Care Team Admitting Physician - FABIENNE LU MD-CAR Attending Physician - FABIENNE LU MD-CAR Primary Care Physician - WILL BRIDGES, -[facility] Referring Physician - FABIENNE LU MD-CAR [...] weeks Comments Follow-up as instructed Where: [address] [place] [address]- Medications What How Much When Instructions Next [...] to thoroughly wash your hands, use hand wafer fab technician. While handwashing is best, hand wafer fab technician helps to reduce the spread of germs when you are out and about. Have hand wafer fab technician in several locations so you can always [...] keep people from also getting sick. Don???t [place] It! Sneezing this time of year is [...] different for every person. A diet and insurance marketing specialist (registered dietitian) can help you make [...] of carbohydrates: ? hamburger bun or ?? Macedonian muffin. ? oz (15 mL) syrup. ? [...] foods that contain carbohydrates: ??? Rice. ??? [place]. ??? Milk. ??? Strawberries. 2. Calculate how [...] manage your diabetes. ??? A diet and insurance marketing specialist (registered dietitian) can help you make a meal plan and calculate how many carbohydrates you should have at each meal and snack. This information is not intended to replace advice given to you by your health care provider. Make sure you discuss any questions you have with your health care provider. Document Revised: 10/02/2017 Document Reviewed: 08/21/2016 [employer] Patient Education ?? 2020 [employer]. Diabetes Mellitus and Nutrition, Adult When [...] that you work with a diet and insurance marketing specialist (dietitian) to make a meal plan [...] provider. ??? Work with a counselor or extension educator to identify strategies to manage stress and any emotional and social challenges. Questions to ask a health care provider ??? Do I need to meet with a extension educator? Do I need to meet with a dietitian? What number can I call if I have questions? When are the best times to check my blood glucose? Where to find more information: ??? [place] Diabetes Association: diabetes.org ??? Academy of Nutrition and Dietetics: www.eatright.org ??? National [place] of Diabetes and Digestive and Kidney Diseases (NIH): www.niddk.nih.gov Summary ??? A healthy meal plan will help you control your blood glucose and maintain a healthy lifestyle. ??? Working with a diet and insurance marketing specialist (dietitian) can help you make a [...] provider. Document Revised: 02/20/2018 Document Reviewed: 04/14/2017 [employer] Patient Education ?? 2020 [employer]. Coronary Angiogram A coronary angiogram is [...] including vitamins, herbs, eye drops, creams, and bivi-ctw-yemxcyr medicines. ??? Any problems you or family [...] do not normally take it. ??? Taking leha-kmj-laiytzt medicines, vitamins, herbs, and supplements. General instructions [...] provider. Document Revised: 09/30/2019 Document Reviewed: 09/30/2019 [employer]ably Patient Education ?? 2020 [employer]. Moderate Conscious Sedation, Adult, Care After [...] you are awake and alert. ??? Take vvnb-tjb-eoxklll and prescription medicines only as told by [...] provider. Document Revised: 02/20/2018 Document Reviewed: 06/29/2016 [employer] Patient Education ?? 2020 [employer]. Radial Site Care This sheet gives you [...] these instructions at home: Medicines ??? Take wybk-lpz-jvijqyn and prescription medicines only as told by your health care provider. Insertion site care ??? Follow instructions from your health care provider about how to take care of your insertion site. Make sure you: ? Wash your hands with soap and water before you change your bandage (dressing). If soap and water are not available, use hand wafer fab technician. ? Change your dressing as told by [...] provider. Document Revised: 04/15/2018 Document Reviewed: 04/15/2018 [employer] Patient Education ?? 2020 [employer]. Transradial Angiogram A transradial angiogram is [...] including vitamins, herbs, eye drops, creams, and nlwt-bsd-htuwmyr medicines. ??? Any problems you or family [...] tells you to take them. ??? Taking ychz-set-jwfdwbk medicines, vitamins, herbs, and supplements. Exams and [...] provider. Document Revised: 02/01/2019 Document Reviewed: 02/01/2019 [employer]ably Patient Education ?? 2020 [employer]. Emergency Awareness and Preventative Care STROKE [...] Assistance with quitting is available by contacting 8-446-ACHGNOW. This is a free resource providing counseling, [...] was given the opportunity to ask questions. Patient/Senior Ux Designer Name: Patient/Senior Ux Designer Signature: Relationship to Patient: Clinician/Hospital Senior Ux Designer Signature: Date: documented in this encounter Plan of Treatment Not on file documented as of this encounter Visit Diagnoses Not on filedocumented in this encounter Care Teams Campus Safety Officer Relationship Specialty Start Date End Date Reina, JUKEBOX ROUTE DRIVER [address] [place] [address] PCP - General Nurse Practitioner 11/14/22 10/01/23 documented as of this encounter
--- OUTSIDE RECORDS SUMMARY | 2024-11-08 18:54 | XMS_ITS | Encounter Summary ---
Author Organization [employer] ([place], [place], [place], [place]) Address [address] [place] [address] Care Team Providers Care Knife Setter Grinder Machine Name Role Phone NellieReina hancock Nilsa TAMEZ Primary Care Provider +1 [phone] Encounter Details Date Type Department Care Team (Late st Contact Info) Description 07/27/2020 Transcribed Document [facility] [place] [facility] [place] [address] ProviderVeronica MD [address] [place] [address] Social History Tobacco Use Types [...] PROCEDURE: Standard left heart catheterization technique. A 5/6-Polish sheath was placed in the right radial [...] at low cardiac risk for gynecological surgery. /[id number] Jun Hung MD SSL/AQ / SSL / MODL /[id number] CC: MD Dr. Lilia Ricardo documented in this encounter Plan of Treatment Not on file documented as of this encounter Visit Diagnoses Not on filedocumented in this encounter Care Teams Knife Setter Grinder Machine Relationship Specialty Start Date End Date FebReina hancock, RECONSIGNMENT CLERK [address] [place] [address] PCP - General Nurse Practitioner 11/14/22 10/01/23 documented as of this encounter
--- OUTSIDE RECORDS SUMMARY | 2024-11-08 18:54 | XMS_ITS | Encounter Summary ---
Author Organization [employer] [facility] ([place], [place], [place], [place]) Address [address] [place] [address] Care Team Providers Care Help Desk Consultant Name Role Phone Reina Olmedo APRN Primary Care Provider +1 [phone] Encounter Details Date Type Department Care Team (Late st Contact Info) Description 08/03/2020 Transcribed Document [facility] [place] [address] [place] [address] ProviderVeronica MD [address] [place] [address] Social History Tobacco Use Types [...] YANE REBOLLEDO/Sex: 1970 Female Med Rec #: [id number] Physician: YOU HAWTHORNE MD-OBG Financial #: [id number] Pt. Type: O Room/Bed: [facility] Admit/Disch: 08/03/20 03:59:00 - Institution: [facility] Main OR PACU Case Times Entry 1 In PACU I 08/03/20 11:29:00 Ready for PACU 08/03/20 12:34:00 Discharge Discharge from PACU 08/03/20 12:34:00 I Last Modified By: REINA SANCHEZ, EHT-AI-JDHN-OP CAR 08/03/20 12:34:23 [facility] Main OR PACU Case Times Audit 08/03/20 12:34:52 Brands Editor: [id number] Modifier: [id number] <+> 1 In PACU I Finalized By: REINA SANCHEZ, [id number]-[place]-[id number]-OP CAR Document Signatures Signed By: REINA SANCHEZ, BBY-EU-XGRV-OP CAR 08/03/20 12:34 documented in this encounter Plan of Treatment Not on file documented as of this encounter Visit Diagnoses Not on filedocumented in this encounter Care Teams Help Desk Consultant Relationship Specialty Start Date End Date Reina Olmedo, ALLIED HEALTH TEACHER [address] [place] [address] PCP - General Nurse Practitioner 11/14/22 10/01/23 documented as of this encounter
--- OUTSIDE RECORDS SUMMARY | 2024-11-08 18:54 | XMS_ITS | Clinical Summary ---
Author Organization [employer] ([place], [place], [place], [place]) Address [address] [place] [address] Care Team Providers Care Bottle Cleaner Name Role Phone Unavailable Primary Care Provider Unavailabl e Allergies Active Allergy Reactions Criticality Noted Date Comments Egg Hives,Itching,Rash High 01/06/2023 Green Gonzalez Hives,Itching,Rash High 01/06/2023 Hazelnut Hives,Itching,Rash High 01/06/2023 House Dust Mite 01/06/2023 Milk Hives,Itching,Rash High 01/06/2023 Mold Hives,Itching,Rash High 01/06/2023 Peanut Hives,Itching,Rash High 01/06/2023 Tomato Hives,Itching,Rash High 01/06/2023 Tree Pollen Hives,Itching,Rash High 01/06/2023 Riddleton Hives,Itching,Rash High 01/06/2023 Medications aspirin 81 MG [...] mRNA (PF)(LNP-S BIV ALENT) (Perez Cap) 12YR+ (PFIZER)([id number] 12/27/2022 Covid-19 Vaccine MRNA (PF) 1 2yr+ (Pfizer/[employer])([id number]) 01/26/2021,07/25/2020,06/29/2020 Covid-19 Vaccine MRNA(PF,Premixed)12YR+ (Pfizer/[employer])([id number]) 08/09/2021 Hepatitis A Adult 08/07/2018,01/06/2018 Influenza Four-QIV [...] Date Joshua rded Speak language other than Bangladeshi at home Not on file 04/09/2023 Want [...] - 08/05/2023 10:08 AM EDT Performed at: [facility] [address] [id number] Asic Verification Engineer: Clive Martinez PhD, Phone: [phone] Reina Olmedo BIN PACKER LAB BLOOD ORDERABLES Becky l Result Performing Organization Address [facility] Co de Phone Number [facility] * (ABNORMAL) Lipid panel (08/04/2023 2:21 PM EDT) [facility] Cholesterol, Total 153 100 - 199 mg/dL [facility] Triglycerides 236(H) 0 - 149 mg/dL [facility] HDL Cholesterol 46 >39 mg/dL [facility] VLDL Cholesterol Lopez 38 5 - 40 mg/dL [facility] LDL Calculated 69 0 - 99 mg/dL [facility] Blood 08/04/2023 2:21 PM EDT 08/04/2023 Narrative [facility] - 08/05/2023 10:08 AM EDT Performed at: 01 - [facility] [address] [id number] Asic Verification Engineer: Clive Martinez PhD, Phone: [phone] Reina Olmedo APRN LAB BLOOD ORDERABLES Becky l Result Performing Organization Address [facility] de Phone Number [facility] * HM MAMMOGRAPHY (11/11/2018) Anatomical Region Laterality Modality Other Historical Provider HEALTH MAINTENANCE Final Result from Last 3 Months or Most Recently Relevant to Health Maintenance Insurance [place] [id number]
--- OUTSIDE RECORDS SUMMARY | 2024-11-08 18:54 | XMS_ITS | Encounter Summary ---
Author Organization [employer] ([place], [place], [place], [place]) Address [address] [place] [address] Care Team Providers Care Account Manager Employee Benefits Name Role Phone Reina Olmedo APRN Primary Care Provider [phone] [phone] Encounter Details Date Type Department Care Team (Late st Contact Info) Description 08/03/2020 Transcribed Document [facility] STRAW HAT BRIM RAISER OPERATOR - [address] [facility] [address] [place] [address] Radha Rodrigues MD [address], [address] [place] [address] Social History Tobacco Use Types Packs/Day Years [...] PROCEDURES PERFORMED: Total laparoscopic hysterectomy, bilateral salpingectomy. TENTERING MACHINE OFF BEARER: Aidee. INDICATION FOR SURGERY: The patient is [...] recovery room in alert and stable condition. /[id number] Radha Rodrigues MD EE/AQ / EE / MODL /[id number] documented in this encounter Plan of Treatment Not on file documented as of this encounter Visit Diagnoses Not on filedocumented in this encounter Care Teams Account Manager Employee Benefits Relationship Specialty Start Date End Date Reina Olmedo, DETECTIVE INVESTIGATOR [address] [place] [address] PCP - General Nurse Practitioner 11/14/22 10/01/23 documented as of this encounter
--- OUTSIDE RECORDS SUMMARY | 2024-11-08 18:54 | XMS_ITS | Encounter Summary ---
Author Organization [employer] ([place], [place], [place], [place]) Address [address] [place] [address] Care Team Providers Care Registered Travel Nurse Name Role Phone Reina Olmedo DASHAWN Primary Care Provider [phone] [phone] Encounter Details Date Type Department Care Team (Late st Contact Info) Description 07/27/2020 Transcribed Document [facility] [place] [address] [place] [address] ProviderVeronica MD [address] [place] [address] Social History Tobacco Use Types [...] Veronica ProviderMD - 07/27/2020 2:50 PM CDT [facility] [place] [address] YANE REBOLLEDO :1970 Visit Time:07/27/2020 Your Visit Summary Your Care Team Admitting Physician - FABIENNE LU MD-CAR Attending Physician - FABIENNE LU MD-CAR Primary Care Physician - WILL BRIDGES, -[facility] Referring Physician - FABIENNE LU MD-CAR Your [...] weeks Comments Follow-up as instructed Where: [address] [facility] [place] [address]- Medications What How Much When Instructions Next [...] to thoroughly wash your hands, use hand automotive engineering teacher. While handwashing is best, hand automotive engineering teacher helps to reduce the spread of germs when you are out and about. Have hand automotive engineering teacher in several locations so you can always [...] keep people from also getting sick. Don???t [place] It! Sneezing this time of year is [...] for every person. A diet and nutrition professor (registered dietitian) can help you make a [...] of carbohydrates: ? hamburger bun or ?? Setswana muffin. ? oz (15 mL) syrup. [...] foods that contain carbohydrates: ??? Rice. ??? [place]. ??? Milk. ??? Strawberries. 2. Calculate how [...] your diabetes. ??? A diet and nutrition professor (registered dietitian) can help you make a meal plan and calculate how many carbohydrates you should have at each meal and snack. This information is not intended to replace advice given to you by your health care provider. Make sure you discuss any questions you have with your health care provider. Document Revised: 10/02/2017 Document Reviewed: 08/21/2016 [employer]apps Patient Education ?? 2020 [employer]apps Inc. Diabetes Mellitus and Nutrition, Adult When [...] you work with a diet and nutrition professor (dietitian) to make a meal plan that [...] provider. ??? Work with a counselor or art educator to identify strategies to manage stress and any emotional and social challenges. Questions to ask a health care provider ??? Do I need to meet with a art educator? Do I need to meet with a dietitian? What number can I call if I have questions? When are the best times to check my blood glucose? Where to find more information: ??? [place] Diabetes Association: diabetes.org ??? Academy of Nutrition and Dietetics: www.eatright.org ??? National [place] of Diabetes and Digestive and Kidney Diseases (NIH): www.niddk.nih.gov Summary ??? A healthy meal plan will help you control your blood glucose and maintain a healthy lifestyle. ??? Working with a diet and nutrition professor (dietitian) can help you make a meal [...] provider. Document Revised: 02/20/2018 Document Reviewed: 04/14/2017 [employer]apps Patient Education ?? 2020 [employer]apps [employer]. Coronary Angiogram A coronary angiogram is [...] including vitamins, herbs, eye drops, creams, and ocag-evk-myniwsy medicines. ??? Any problems you or family [...] do not normally take it. ??? Taking xajm-wya-wwgpquq medicines, vitamins, herbs, and supplements. General instructions [...] provider. Document Revised: 09/30/2019 Document Reviewed: 09/30/2019 [employer]apps Patient Education ?? 2020 [employer]apps Inc. Moderate Conscious Sedation, Adult, Care After [...] you are awake and alert. ??? Take pdrg-iob-nqbtgwr and prescription medicines only as told by [...] provider. Document Revised: 02/20/2018 Document Reviewed: 06/29/2016 [employer]apps Patient Education ?? 2020 [employer]. Radial Site Care This sheet gives you [...] these instructions at home: Medicines ??? Take crnm-qhi-jalclbu and prescription medicines only as told by your health care provider. Insertion site care ??? Follow instructions from your health care provider about how to take care of your insertion site. Make sure you: ? Wash your hands with soap and water before you change your bandage (dressing). If soap and water are not available, use hand automotive engineering teacher. ? Change your dressing as told by [...] provider. Document Revised: 04/15/2018 Document Reviewed: 04/15/2018 [employer]apps Patient Education ?? 2020 [employer]. Transradial Angiogram A transradial angiogram is [...] including vitamins, herbs, eye drops, creams, and dcaw-phr-hrvywik medicines. ??? Any problems you or family [...] tells you to take them. ??? Taking becs-uhc-ytcucfp medicines, vitamins, herbs, and supplements. Exams and [...] provider. Document Revised: 02/01/2019 Document Reviewed: 02/01/2019 [employer]apps Patient Education ?? 2020 [employer]apps Inc. Emergency Awareness and Preventative Care STROKE [...] Assistance with quitting is available by contacting 6-214-CMYXNOW. This is a free resource providing counseling, [...] was given the opportunity to ask questions. Patient/Family Day Care Provider Name: Patient/Family Day Care Provider Signature: Relationship to Patient: Clinician/Hospital Family Day Care Provider Signature: Date: documented in this encounter Plan of Treatment Not on file documented as of this encounter Visit Diagnoses Not on filedocumented in this encounter Care Teams Registered Travel Nurse Relationship Specialty Start Date End Date Reina, CHICKEN AND FISH CLEANER [address] [place] [address] PCP - General Nurse Practitioner 11/14/22 10/01/23 documented as of this encounter
--- OUTSIDE RECORDS SUMMARY | 2024-11-08 18:54 | XMS_ITS | Encounter Summary ---
Author Organization [employer] ([place], [place], [place], [place]) Address [address] [place] [address] Care Team Providers Care Android Software Engineer Name Role Phone Unavailable Primary Care Provider Unavailabl e Reason for Visit * Reason Comments Medication Refill Encounter Details Date Type Department Care Team (Late st Contact Info) Description 02/03/2024 Refill [facility] Primary Care [address] [address] Reina Olmedo, DIRECTOR TRUST [address] [place] [address] Social History Tobacco Use Types [...] Date Joshua rded Speak language other than Bhutanese at home Not on file 04/09/2023 Want [...]
--- OUTSIDE RECORDS SUMMARY | 2024-11-08 18:55 | XMS_ITS | Encounter Summary ---
Author Organization [employer] ([place], [place], [place], [place]) Address [address] [place] [address] Care Team Providers Care Biomass Plant Manager Name Role Phone NellieReina hancock Nilsa TAMEZ Primary Care Provider +1 -[phone] Encounter Details Date Type Department Care Team (Late st Contact Info) Description 03/13/2021 Transcribed Document [facility] [place] [address] [place] [address] ProviderVeronica MD [address] [place] [address] Social History Tobacco Use Types [...] - Veronica ProviderMD - 03/13/2021 3:41 PM CUPOLA LINER HELPER Patient Education Materials Follows: ESOPHAGOGASTRODUODENOSCOPY Care After [...] these instructions at home: Medicines ??? Take xrps-cys-xgqpnvl and prescription medicines only as told by [...] provider. Document Revised: 07/28/2018 Document Reviewed: 07/28/2018 [employer] Patient Education ? 2020 Stroz Friedberg. Electronically signed by Tayler Carnes Conversion Contour Path Tape Mill Operator Cerner at 07/09/2022 12:20 PM CDT documented in this encounter Plan of Treatment Not on file documented as of this encounter Visit Diagnoses Not on filedocumented in this encounter Care Teams Biomass Plant Manager Relationship Specialty Start Date End Date Reina Olmedo, CERTIFIED FRAUD EXAMINER [address] [place] [address] PCP - General Nurse Practitioner 11/14/22 10/01/23 documented as of this encounter
--- OUTSIDE RECORDS SUMMARY | 2024-11-08 18:55 | XMS_ITS | Encounter Summary ---
Author Organization [email or web address] ([place], [place], [place], [place]) Address [address] [place] [address] Care Team Providers Care Stereo Compiler Name Role Phone Reina Olmedo DASHAWN Primary Care Provider +1 -[phone] Encounter Details Date Type Department Care Team (Late st Contact Info) Description 03/13/2021 Transcribed Document [facility] [place] [address] [place] [address] ProviderVeronica MD [address] [place] [address] Social History Tobacco Use Types [...] - Historical ProviderMD - 03/13/2021 3:30 PM CLINICAL EDUCATION CONSULTANT [facility] PACU Summary Primary Physician: CARINE AMATO MD-GAE Finalized Date/Time: 03/13/21 16:11:33 Pt. Name: YANE REBOLLEDO/Sex: 1970 Female Med Rec #: [id number] Physician: CARINE AMATO MD-GAE Financial #: [id number] Pt. Type: E Room/Bed: [facility] [place] Admit/Disch: 03/13/21 12:24:00 - 03/13/21 15:47:00 Institution: [facility] PACU Case Times Entry 1 In PACU I 03/13/21 15:39:00 Ready for PACU 03/13/21 16:03:00 Discharge Discharge from PACU 03/13/21 16:11:00 I [facility] PACU Case Times Audit 03/13/21 16:11:32 Fire Engine Operator: [id number] Modifier: [id number] <+> 1 Ready for PACU Discharge <+> 1 Discharge from PACU I Finalized By: Lolis Ivan RN-PATIENT CARE BEDSIDE NON-EXEMPT Document Signatures Signed By: Lolis Ivan RN-PATIENT CARE BEDSIDE NON-EXEMPT 03/13/21 16:11 documented in this encounter Plan of Treatment Not on file documented as of this encounter Visit Diagnoses Not on filedocumented in this encounter Care Teams Stereo Compiler Relationship Specialty Start Date End Date Reina Olmedo, REELING MACHINE SETUP OPERATOR [address] [place] [address] PCP - General Nurse Practitioner 11/14/22 10/01/23 documented as of this encounter
--- OUTSIDE RECORDS SUMMARY | 2024-11-08 18:55 | XMS_ITS | Encounter Summary ---
Author Organization [employer] ([place], [place], [place], [place]) Address [address] [place] [address] Care Team Providers Care Cargo Worker Name Role Phone Reina Olmedo APRN Primary Care Provider +1 -[phone] Encounter Details Date Type Department Care Team (Late st Contact Info) Description 12/02/2019 Transcribed Document [facility] [place] [address] [place] [address] ProviderVeronica MD [address] [place] [address] Social History Tobacco Use Types [...] YANE REBOLLEDO/Sex: 1970 Female Med Rec #: [id number] Physician: YOU HAWTHORNE MD-OBG Financial #: [id number] Pt. Type: O Room/Bed: Admit/Disch: 12/02/19 11:24:00 - Institution: [facility] Main OR PACU Case Times Entry 1 In PACU I 12/02/19 16:13:00 Ready for PACU 12/02/19 17:05:00 Discharge Discharge from PACU 12/02/19 17:05:00 I Last Modified By: Helen Francis RN 12/02/19 17:09:16 [facility] Main OR PACU Case Times Audit 12/02/19 17:09:16 Plastics Plater: [email or web address] Modifier: [email or web address] <+> 1 Ready for PACU Discharge <+> 1 Discharge from PACU I Finalized By: Helen Francis, RN Document Signatures Signed By: Helen Francis RN 12/02/19 17:09 documented in this encounter Plan of Treatment Not on file documented as of this encounter Visit Diagnoses Not on filedocumented in this encounter Care Teams Cargo Worker Relationship Specialty Start Date End Date Reina Olmedo, SECRETARY RECEPTIONIST [address] [place] [address] PCP - General Nurse Practitioner 11/14/22 10/01/23 documented as of this encounter
--- OUTSIDE RECORDS SUMMARY | 2024-11-08 18:55 | XMS_ITS | Encounter Summary ---
Author Organization [employer] ([place], [place], [place], [place]) Address [address] [place] [address] Care Team Providers Care Aircraft General Repair Mechanic Name Role Phone Reina Olmedo DASHAWN Primary Care Provider [phone] -[phone] Encounter Details Date Type Department Care Team (Late st Contact Info) Description 08/04/[address] [facility] [place] Family Medicine [address] [place] [address] ProviderVeronica MD [address] [place] [address] Social History Tobacco Use Types [...] Referral(s) Listed Discharge To Care Management : Home/Residential/Snf or Self Care -[address] - 08/04/2020 11:17 EDT Final Narrative Note Final Narrative Note : Pt to dc home with family transport, and f/u outpatient with Dr. Rodrigues. No dc needs noted. [facility] SW - 08/04/2020 11:17 EDT Electronically signed by Deyvi [facility] Conversion Registered Nurse Cardiac Cerner at 07/09/2022 12:16 PM CDT documented in this encounter Plan of Treatment Not on file documented as of this encounter Visit Diagnoses Not on filedocumented in this encounter Care Teams Aircraft General Repair Mechanic Relationship Specialty Start Date End Date Reina, BUSINESS INFO CONSULTANT [address] [place] [address] PCP - General Nurse Practitioner 11/14/22 10/01/23 documented as of this encounter
--- OUTSIDE RECORDS SUMMARY | 2024-11-08 18:55 | XMS_ITS | Encounter Summary ---
Author Organization [employer] ([place], [place], [place], [place]) Address [address] [place] [address] Care Team Providers Care Vending Machine Servicer Name Role Phone NellieReina hancock Nilsa TAMEZ Primary Care Provider +1 -[phone] Encounter Details Date Type Department Care Team (Late st Contact Info) Description 11/08/2020 Transcribed Document [facility] [place] [facility] [place] [address] ProviderVeronica MD [address] [place] [address] Social History Tobacco Use Types [...] Ms. Oconnor and continue in her care. /[id number] Melinda Lopez MD PAC/AQ / PAC / MODL /[id number] CC: MD Holly Carlson APRN Electronically signed by [facility] Conversion Die Barber Cerner at 07/09/2022 12:33 PM CDT documented in this encounter Plan of Treatment Not on file documented as of this encounter Visit Diagnoses Not on filedocumented in this encounter Care Teams Vending Machine Servicer Relationship Specialty Start Date End Date Reina APRN [address] [place] [address] PCP - General Nurse Practitioner 11/14/22 10/01/23 documented as of this encounter
--- OUTSIDE RECORDS SUMMARY | 2024-11-08 18:55 | XMS_ITS | Encounter Summary ---
Author Organization [employer] ([place], [place], [place], [place]) Address [address] [place] [address] Care Team Providers Care Spray Gun Striper Name Role Phone Reina Olmedo DASHAWN Primary Care Provider [phone] -[phone] Encounter Details Date Type Department Care Team (Late st Contact Info) Description 03/13/2021 Transcribed Document [facility] Family Medicine [address] [place] [address] ProviderVeronica MD [address] [place] [...] - Veronica ProviderMD - 03/13/2021 3:38 PM BOARD CATCHER Patient: YANE REBOLLEDO Age: 50 years Sex: Female : 1970 Associated Diagnoses: None Author: CARINE RAMEY MD-NDHipolito Upper Endoscopy Procedure Report: Esophagogastroduodenoscopy with cold [...] The entire esophagus was dilated to 60 [place]/20 mm with a TTS hydrostatic balloon. There [...] will discuss dietary measures and treatment options. Electronically signed by Deyvi, [place]ler Conversion Transition Of Care Specialist Cerner at 07/09/2022 12:19 PM CDT documented in this encounter Plan of Treatment Not on file documented as of this encounter Visit Diagnoses Not on filedocumented in this encounter Care Teams Spray Gun Striper Relationship Specialty Start Date End Date Reina Olmedo, HEADRIG SAWYER [address] [place] [address] PCP - General Nurse Practitioner 11/14/22 10/01/23 documented as of this encounter
--- OUTSIDE RECORDS SUMMARY | 2024-11-08 18:55 | XMS_ITS | Encounter Summary ---
Author Organization [employer] ([place], [place], [place], [place]) Address [address] [place] [address] Care Team Providers Care Medical Case Worker Name Role Phone Nelliekarissa Reina Nilsa TAMEZ Primary Care Provider [phone] [phone] Encounter Details Date Type Department Care Team (Late st Contact Info) Description 12/02/2019 Transcribed Document [facility] [place] [address] [place] [address] Veronica Correa MD [address], [place] [id number] Social History Tobacco Use Types Packs/Day Years [...] activities are safe for you. ??? Take pogy-ulp-qmowcyc and prescription medicines only as told by [...] 06/16/2001 Document Revised: 03/13/2018 Document Reviewed: 10/24/2017 [employer] Patient Education ? 2020 [employer]. Myomectomy, Care After This sheet gives you [...] these instructions at home: Medicines ??? Take dded-obe-mmrtgcc and prescription medicines only as told by [...] and water are not available, use hand manager simulation. ? Change your dressing as told by [...] urine clear or pale yellow. ? Take khit-jus-ouxluea or prescription medicines. ? Eat foods that [...] 07/31/2011 Document Revised: 02/20/2018 Document Reviewed: 04/10/2017 [employer] Patient Education ? 2020 [employer]. Hysteroscopy, Care After This sheet gives [...] taking prescription pain medicines. Medicines ??? Take dudu-wzi-mcaxtvo and prescription medicines only as told by [...] urine clear or pale yellow. ? Take wblv-luw-ytirmzi or prescription medicines. ? Eat foods that [...] 12/29/2013 Document Revised: 02/20/2018 Document Reviewed: 04/08/2017 [employer] Patient Education ? 2020 [employer]. documented in this encounter Plan of Treatment Not on file documented as of this encounter Visit Diagnoses Not on filedocumented in this encounter Care Teams Medical Case Worker Relationship Specialty Start Date End Date Reina Olmedo, ECOMMERCE MERCHANDISING MANAGER [address] [place] [address] PCP - General Nurse Practitioner 11/14/22 10/01/23 documented as of this encounter
--- OUTSIDE RECORDS SUMMARY | 2024-11-08 18:55 | XMS_ITS | Encounter Summary ---
Author Organization [employer] ([place], [place], [place], [place]) Address [address] [place] [address] Care Team Providers Care Inker Machine Name Role Phone Reina Olmedo DASHAWN Primary Care Provider [phone] [phone] Encounter Details Date Type Department Care Team (Late st Contact Info) Description 07/27/2020 Transcribed Document [facility] [place] Medicine [address] [place] [address] ProviderVeronica MD [address] [place] [address] Social History Tobacco Use Types Packs/Day Years Used Date Smoking Tobacco: Never Assessed Comments Unknown Sex and Gender Information Value Date Recorded Sex Assigned at Not on file Legal Sex Female 4:58 PM CDT Gender Identity Not on file Sexual Orientation Not on file documented as of this encounter Miscellaneous Notes * Cerner Conversion Note - Historical ProviderMD - 07/27/2020 12:51 PM CDT Nursing [...] LETY WASSERMAN RN - 07/27/2020 12:51 EDT documented in this encounter Plan of Treatment Not on file documented as of this encounter Visit Diagnoses Not on filedocumented in this encounter Care Teams Inker Machine Relationship Specialty Start Date End Date Reina Olmedo, MARKETING EDUCATION TEACHER [address] [place] [address] PCP - General Nurse Practitioner 11/14/22 10/01/23 documented as of this encounter
--- OUTSIDE RECORDS SUMMARY | 2024-11-08 18:55 | XMS_ITS | Encounter Summary ---
Author Organization [employer] ([place], [place], [place], [place]) Address [address] [place] [address] Care Team Providers Care Kaiawhina Name Role Phone Reina Olmedo DASHAWN Primary Care Provider [phone] [phone] Encounter Details Date Type Department Care Team (Late st Contact Info) Description 08/04/2020 Transcribed Document [facility] [place] Family Medicine [address] [place] [address] ProviderVeronica MD [address] [place] [address] Social History Tobacco Use Types [...] Veronica ProviderMD - 08/04/2020 12:18 [place] [address] YANE REBOLLEDO :1970 Visit Time:08/03/2020 Your Visit Summary Your Care Team Admitting Physician - YOU HAWTHORNE MD-OBG Attending Physician - YOU HAWTHORNE MD-OBG Primary Care Physician - WILL BRIDGES, -[facility] Referring Physician - YOU HAWTHORNE MD-OBG Your [...] When 08/15/2020 02:00 PM EDT Where: [address] [place] [address]- Medications What How Much When Instructions Next Dose acetaminophen-oxyCODONE (Percocet 5/ 325 oral tablet) 1 Tablet(s) Oral Every 6 Hours not to exceed 12 tablets/ day Pickup at [facility] ibuprofen (ibuprofen 800 mg oral tablet) 1 Tablet(s) Oral Every 6 Hours not to exceed 3200 mg/ day Pickup at [facility] 08/04/20 at 6pm aspirin (aspirin 81 [...] 2 Tablet(s) Oral At Bedtime Pharmacy Information [facility]: [address] [place] [address] [phone] Take your medications faithfully. Do NOT skip [...] and water are not available, use hand encyclopedia research worker. ? Change or remove your dressing as [...] Do not have sex. Medicines ??? Take alkw-ubt-zhweyqy and prescription medicines only as told by your health care provider. ??? Ask your health care provider if the medicine prescribed to you: ? Requires you to avoid driving or using heavy machinery. ? Can cause constipation. You may need to take actions to prevent or treat constipation, such as: ? Drink enough fluid to keep your urine pale yellow. ? Take srbk-bjh-ixltrcc or prescription medicines. ? Eat foods that [...] provider. Document Revised: 03/01/2019 Document Reviewed: 03/01/2019 [employer] Patient Education ?? 2020 [employer]. Total Laparoscopic Hysterectomy, Care After This sheet [...] and water are not available, use hand encyclopedia research worker. ? Change your dressing as told by [...] by your health care provider. ??? Take kore-eft-ljtqwjc and prescription medicines only as told by [...] urine clear or pale yellow. ? Take sdin-emr-qkrjnjq or prescription medicines. ? Eat foods that [...] provider. Document Revised: 02/20/2018 Document Reviewed: 05/21/2017 [employer] Patient Education ?? 2020 [employer]use. acetaminophen and oxycodone (a SEET a MIN [...] may report side effects to FDA at 9-890-OSI-1687. What other drugs will affect acetaminophen and [...] affect acetaminophen and oxycodone, including prescription and owsn-wve-roghldh medicines, vitamins, and herbal products. Not all [...] to ensure that the information provided by theRightAPI. ('Multum') is accurate, up-to-date, and complete, but no guarantee is made to that effect. Drug information contained herein may be time sensitive. Grabbed information has been compiled for use by healthcare practitioners and consumers in the [place] and therefore Grabbed does not warrant that uses outside of the [place] are appropriate, unless specifically indicated otherwise. Grabbed's drug information does not endorse drugs, diagnose patients or recommend therapy. [employer] drug information is an informational resource designed [...] effective or appropriate for any given patient. Grabbed does not assume any responsibility for any aspect of healthcare administered with the aid of information Grabbed provides. The information contained herein is not intended to cover all possible uses, directions, precautions, warnings, drug interactions, allergic reactions, or adverse effects. If you have questions about the drugs you are taking, check with your doctor, nurse or pharmacist. Copyright 2925-3660 theRightAPI. Version: 20.03. Revision Date: 04/28/2020. ibuprofen (EYE [...] may report side effects to FDA at 5-994-MOM-5535. What other drugs will affect ibuprofen? Ask [...] drugs may affect ibuprofen, including prescription and rjls-yid-swmmdhu medicines, vitamins, and herbal products. Not all [...] to ensure that the information provided by theRightAPI. ('Multum') is accurate, up-to-date, and complete, but no guarantee is made to that effect. Drug information contained herein may be time sensitive. Grabbed information has been compiled for use by healthcare practitioners and consumers in the [place] and therefore Grabbed does not warrant that uses outside of the [place] are appropriate, unless specifically indicated otherwise. [employer] drug information does not endorse drugs, diagnose patients or recommend therapy. [employer] drug information is an informational resource designed [...] effective or appropriate for any given patient. Grabbed does not assume any responsibility for any aspect of healthcare administered with the aid of information Grabbed provides. The information contained herein is not intended to cover all possible uses, directions, precautions, warnings, drug interactions, allergic reactions, or adverse effects. If you have questions about the drugs you are taking, check with your doctor, nurse or pharmacist. Copyright 0369-1039 theRightAPI. Version: 22.01. Revision Date: 02/16/2020. Emergency Awareness [...] Assistance with quitting is available by contacting 6-502-IPSS-NOW. This is a free resource providing counseling, [...] range between ( 1.0 and 7.0 ) [place] #: 0.79 K/uL -- Normal range between ( 0.24 and 0.82 ) Eos #: 0.01 K/uL -- Normal range between ( 0.04 and 0.54 ) [place] %: 7.5 % -- Normal range between [...] was given the opportunity to ask questions. Patient/Haz Tech Name: Patient/Haz Tech Signature: Relationship to Patient: Clinician/Hospital Haz Tech Signature: Date: Electronically signed by Tayler Carnes Conversion Health Sciences Program Coordinator Cerner at 07/09/2022 12:35 PM CDT documented in this encounter Plan of Treatment Not on file documented as of this encounter Visit Diagnoses Not on filedocumented in this encounter Care Teams Kaiawhina Relationship Specialty Start Date End Date FebReina hancock APRN [address] [place] [address] PCP - General Nurse Practitioner 11/14/22 10/01/23 documented as of this encounter
--- OUTSIDE RECORDS SUMMARY | 2024-11-08 18:55 | XMS_ITS | Encounter Summary ---
Author Organization [employer] ([place], [place], [place], [place]) Address [address] [place] [address] Care Team Providers Care Nutrition Consultant Name Role Phone Reina Olmedo APRN Primary Care Provider [phone] Reason for Visit * Reason Onset Date Comments Medication Refill 02/04/2023 Encounter Details Date Type Department Care Team (Late st Contact Info) Description 02/04/2023 Refill [facility] Primary Care - [address] [address] Reina Olmedo APRN [address] [place] [address] Social History Tobacco Use Types Packs/Day [...] MA - 02/04/2023 4:[address] ORIENTED DEVELOPER documented in this encounter Plan of Treatment Not on file documented as of this encounter Visit Diagnoses Not on filedocumented in this encounter Care Teams Nutrition Consultant Relationship Specialty Start Date End Date FebReina hancock, PYTHON DJANGO DEVELOPER [address] [place] [address] PCP - General Nurse Practitioner 11/14/22 10/01/23 documented as of this encounter
--- OUTSIDE RECORDS SUMMARY | 2024-11-08 18:55 | XMS_ITS | Encounter Summary ---
Author Organization [employer] ([place], [place], [place], [place]) Address [address] [place] [address] Care Team Providers Care Pipeliner Name Role Phone Nelliekarissa Reina Nilsa TAMEZ Primary Care Provider [phone] Encounter Details Date Type Department Care Team (Late st Contact Info) Description 08/16/2020 Transcribed Document [facility] [place] Medicine [address] [place] [address] ProviderVeronica MD [address] [place] [address] Social History Tobacco Use Types [...] up at 8 or 8:30 a.m. Her [place] score is 7. She notes snoring continuously [...] ahead and start CPAP in the interim. /[id number] Melinda Lopez MD PAC/AQ / PAC / MODL /[id number] CC: DASHAWN Castanon MD Electronically signed by [facility], [facility] Conversion Report Programmer Cerner at 07/09/2022 12:13 PM CDT documented in this encounter Plan of Treatment Not on file documented as of this encounter Visit Diagnoses Not on filedocumented in this encounter Care Teams Pipeliner Relationship Specialty Start Date End Date Reina Olmedo APRN [address] [place] [address] PCP - General Nurse Practitioner 11/14/22 10/01/23 documented as of this encounter
--- OUTSIDE RECORDS SUMMARY | 2024-11-08 18:55 | XMS_ITS | Encounter Summary ---
Author Organization [employer] ([place], [place], [place], [place]) Address [address] [place] [address] Care Team Providers Care Mechanical Research Engineer Name Role Phone Reina Olmedo NURSE SUBSTANCE ABUSE Primary Care Provider [phone] Encounter Details Date Type Department Care Team (Late st Contact Info) Description 08/04/2020 Transcribed Document [facility] [place] [address] [place] [address] ProviderVeronica MD [address] [place] [address] Social History Tobacco Use Types [...] EDT Performed On: 08/04/2020 11:16 EDT by ARNODL HOYT SW Initial Assessment I Previously Documented [...] on filedocumented in this encounter Care Teams Mechanical Research Engineer Relationship Specialty Start Date End Date Reina Olmedo, NURSE SUBSTANCE ABUSE [address] [place] [address] PCP - General Nurse Practitioner 11/14/22 10/01/23 documented as of this encounter
--- OUTSIDE RECORDS SUMMARY | 2024-11-08 18:55 | XMS_ITS | Encounter Summary ---
Author Organization [employer] ([place], [place], [place], [place]) Address [address] [place] [address] Care Team Providers Care Allergy Physician Name Role Phone Reina Olmedo FUNERAL PRE ARRANGEMENT SPECIALIST Primary Care Provider [phone] Reason for Visit * Reason Onset Date Comments Medication Refill 11/30/2022 Encounter Details Date Type Department Care Team (Late st Contact Info) Description 11/30/2022 Refill [facility] Primary Care [address] [address] Reina Olmedo, FUNERAL PRE ARRANGEMENT SPECIALIST [address] [place] [address] Social History Tobacco Use Types [...] on filedocumented in this encounter Care Teams Allergy Physician Relationship Specialty Start Date End Date Reina Olmedo FUNERAL PRE ARRANGEMENT SPECIALIST [address] [place] [address] PCP - General Nurse Practitioner 11/14/22 10/01/23 documented as of this encounter
--- OUTSIDE RECORDS SUMMARY | 2024-11-08 18:55 | XMS_ITS | Encounter Summary ---
Author Organization [employer] ([place], [place], [place], [place]) Address [address] [place] [address] Care Team Providers Care Snowmobile Mechanic Name Role Phone Reina Olmedo APRN Primary Care Provider [phone] Encounter Details Date Type Department Care Team (Late st Contact Info) Description 12/03/2019 Transcribed Document [facility] CLOTH NEUTRALIZER - [employer] [address] [facility] [facility] [address] [place] [address] Radha Rodrigues MD [address], [address] [place] [address] Social History Tobacco Use Types Packs/Day Years [...] to the recovery room in stable condition. /[id number] Radha Rodrigues MD EE/AQ / EE / MODL /[id number] documented in this encounter Plan of Treatment Not on file documented as of this encounter Visit Diagnoses Not on filedocumented in this encounter Care Teams Snowmobile Mechanic Relationship Specialty Start Date End Date Reina Olmedo, DIRECTOR COMMUNITY HEALTH NURSING [address] [place] [address] PCP - General Nurse Practitioner 11/14/22 10/01/23 documented as of this encounter
--- OUTSIDE RECORDS SUMMARY | 2024-11-08 18:55 | XMS_ITS | Referral Summary ---
Author Organization [employer] ([place], [place], [place], [place]) Address [address] [place] [address] Care Team Providers Care Puffer Tender Name Role Phone Unavailable Primary Care Provider Unavailabl e Allergies Active Allergy Reactions Criticality Noted Date Comments Egg Hives,Itching,Rash High 01/06/2023 Green Gonzalez Hives,Itching,Rash High 01/06/2023 Hazelnut Hives,Itching,Rash High 01/06/2023 House Dust Mite 01/06/2023 Milk Hives,Itching,Rash High 01/06/2023 Mold Hives,Itching,Rash High 01/06/2023 Peanut Hives,Itching,Rash High 01/06/2023 Tomato Hives,Itching,Rash High 01/06/2023 Tree Pollen Hives,Itching,Rash High 01/06/2023 Kirwin Hives,Itching,Rash High 01/06/2023 Medications aspirin 81 MG [...] mRNA (PF)(LNP-S BIV ALENT) (Perez Cap) 12YR+ (PFIZER)([id number] 12/27/2022 Covid-19 Vaccine MRNA (PF) 1 2yr+ (Pfizer/[employer])([id number]) 01/26/2021,07/25/2020,06/29/2020 Covid-19 Vaccine MRNA(PF,Premixed)12YR+ (Pfizer/[employer])([id number]) 08/09/2021 Hepatitis A Adult 08/07/2018,01/06/2018 Influenza Four-QIV [...] Date Joshua rded Speak language other than Djiboutian at home Not on file 04/09/2023 Want [...] AM EDT Performed at: 01 - [facility] [address] [id number] Waste Elimination: Clive Martinez PhD, Phone: [phone] Reina Olmedo APRN LAB BLOOD ORDERABLES Becky l Result Performing Organization Address [facility] de Phone Number [facility] * (ABNORMAL) Lipid panel (08/04/2023 2:21 PM EDT) [facility] Cholesterol, Total 153 100 - 199 mg/dL [facility] Triglycerides 236(H) 0 - 149 mg/dL [facility] HDL Cholesterol 46 >39 mg/dL [facility] VLDL Cholesterol Lopez 38 5 - 40 mg/dL [facility] LDL Calculated 69 0 - 99 mg/dL [facility] Blood 08/04/2023 2:21 PM EDT 08/04/2023 Narrative [facility] - 08/05/2023 10:08 AM EDT Performed at: 01 - [facility] [address] [id number] Waste Elimination: Clive Martinez PhD, Phone: [phone] Reina Olmedo APRN LAB BLOOD ORDERABLES Becky l Result Performing Organization Address [facility] Co de Phone Number [facility] * HM MAMMOGRAPHY (11/11/2018) Anatomical Region Laterality Modality Other Historical Provider HEALTH MAINTENANCE Final Result from Last 3 Months or Most Recently Relevant to Health Maintenance Insurance [facility]
--- OUTSIDE RECORDS SUMMARY | 2024-11-08 18:55 | XMS_ITS | Encounter Summary ---
Author Organization [employer] ([place], [place], [place], [place]) Address [address] [place] [address] Care Team Providers Care Scouring Train Operator Chief Name Role Phone NellieReina hancock Nilsa TAMEZ Primary Care Provider [phone] Encounter Details Date Type Department Care Team (Late st Contact Info) Description 12/02/2019 Transcribed Document [facility] [place] [address] [place] [address] ProviderVeronica MD [address] [place] [address] Social History Tobacco Use Types [...] Veronica ProviderMD - 12/02/2019 4:44 PM CDT [place] [id number] YANE REBOLLEDO :1970 Visit Time:12/02/2019 What to [...] activities are safe for you. ??? Take empk-yoi-movpniu and prescription medicines only as told by [...] Reviewed: 10/24/2017 Elsevier Patient Education ?? 2020 [employer]pects [employer]. Myomectomy, Care After This sheet gives [...] these instructions at home: Medicines ??? Take rzor-iqy-ndnrpcg and prescription medicines only as told by [...] and water are not available, use hand medical stenographer. ? Change your dressing as told by [...] urine clear or pale yellow. ? Take wxak-xgw-vqajuiv or prescription medicines. ? Eat foods that [...] 07/31/2011 Document Revised: 02/20/2018 Document Reviewed: 04/10/2017 Aspects Software Patient Education ?? 2020 SnapLog[employer]. Hysteroscopy, Care After This sheet gives you [...] taking prescription pain medicines. Medicines ??? Take qprw-cja-buwcgrl and prescription medicines only as told by [...] urine clear or pale yellow. ? Take sdrk-rxj-pgchcpi or prescription medicines. ? Eat foods that [...] 12/29/2013 Document Revised: 02/20/2018 Document Reviewed: 04/08/2017 Aspects Software Patient Education ?? 2020 [employer]Log[employer]. acetaminophen and oxycodone (a SEET a MIN [...] may report side effects to FDA at 2-372-FJT-2207. What other drugs will affect acetaminophen and [...] affect acetaminophen and oxycodone, including prescription and vpaj-hfq-phxzbrn medicines, vitamins, and herbal products. Not all [...] to ensure that the information provided by [employer]. ('Multum') is accurate, up-to-date, and complete, but no guarantee is made to that effect. Drug information contained herein may be time sensitive. [employer]i information has been compiled for use by healthcare practitioners and consumers in the [place] and therefore [employer]i does not warrant that uses outside of the [place] are appropriate, unless specifically indicated otherwise. [employer]'s drug information does not endorse drugs, diagnose patients or recommend therapy. [employer] drug information is an informational resource designed [...] effective or appropriate for any given patient. [facility] does not assume any responsibility for any aspect of healthcare administered with the aid of information [facility] provides. The information contained herein is not intended to cover all possible uses, directions, precautions, warnings, drug interactions, allergic reactions, or adverse effects. If you have questions about the drugs you are taking, check with your doctor, nurse or pharmacist. Copyright 4211-4415 [facility]. Version: .. Revision Date: 04/14/2019. ibuprofen (EYE bue PROE fen) Advil, Genpril, IBU, Midol IB, Motrin IB, Proprinal, Smart Sense Children's Ibuprofen What is the most important information I should know about ibuprofen? Ibuprofen can increase your risk of fatal heart attack or stroke, especially if you use it petroleum terminal plant operator or take high doses, or if you [...] stroke, especially if you use it intermediate or take high doses, or if you [...] may report side effects to FDA at 4-602-PRH-3117. What other drugs will affect ibuprofen? Ask [...] may interact with ibuprofen, including prescription and kstn-gbf-sholkzo medicines, vitamins, and herbal products. Not all [...] to ensure that the information provided by [employer]. ('Multum') is accurate, up-to-date, and complete, but no guarantee is made to that effect. Drug information contained herein may be time sensitive. [employer]i information has been compiled for use by healthcare practitioners and consumers in the [place] and therefore [employer] does not warrant that uses outside of the [place] are appropriate, unless specifically indicated otherwise. [employer] drug information does not endorse drugs, diagnose patients or recommend therapy. The Muse drug information is an informational resource designed [...] effective or appropriate for any given patient. [employer] does not assume any responsibility for any aspect of healthcare administered with the aid of information [employer] provides. The information contained herein is not intended to cover all possible uses, directions, precautions, warnings, drug interactions, allergic reactions, or adverse effects. If you have questions about the drugs you are taking, check with your doctor, nurse or pharmacist. Copyright 9585-9237 [employer]. Version: 21.. Revision Date: 04/05/2019. Emergency Awareness [...] Assistance with quitting is available by contacting 5-859-ZHBG-NOW. This is a free resource providing counseling, [...] was given the opportunity to ask questions. Patient/System Engineer Name: Patient/System Engineer Signature: Relationship to Patient: Clinician/Hospital System Engineer Signature: Date: Electronically signed by Interface, [facility] Conversion Director Pediatric Cerner at 07/09/2022 12:31 PM CDT documented in this encounter Plan of Treatment Not on file documented as of this encounter Visit Diagnoses Not on filedocumented in this encounter Care Teams Scouring Train Operator Chief Relationship Specialty Start Date End Date , Reina Ash, SHIP WORKER [address] [place] [address] PCP - General Nurse Practitioner 11/14/22 10/01/23 documented as of this encounter
--- OUTSIDE RECORDS SUMMARY | 2024-11-08 18:55 | XMS_ITS | Encounter Summary ---
Author Organization [employer] ([place], [place], [place], [place]) Address [address] [place] [address] Care Team Providers Care Testing Director Name Role Phone Nelliekarissa Reina Nilsa TAMEZ Primary Care Provider [phone] Encounter Details Date Type Department Care Team (Late st Contact Info) Description 07/27/2020 Transcribed Document [facility] [place] [address] [place] [address] ProviderVeronica MD [address] [place] [address] Social History Tobacco Use Types [...] Source : Stated Height Entry Format : Converse Height, Feet : 5 ft(Converted to: 152 cm, 60 Inch) Height, Inches : 0 Inch(Converted to: 0 ft 0 Inch, 0.00 cm) Clinical Height : 152.4 cm Weight Source : Standing scale Weight Entry Format : Converse Clinical Dosing Weight : 127.73 kg Weight, Pounds : 281 lb Body Surface Area (BSA) : 2.16 m2 Body Mass Index : 55 kg/m2 (>HHI) [place] Body Weight : 45 kg LETY WASSERMAN [...] LETY WASSERMAN RN - 07/27/2020 8:19 EDT [place] Suicide Severity Rating Scale (C-SSRS) CSSRS Past [...] Ambulatory Legal Guardian : Mother Support Person/Patient Urogynecology Physician : Yes Want Family/Rep/Phys Notified of Admit : No Emergency Contact #1 : Meryl Emergency Contact #1 Emergency Contact #1 Relationship : mother Emergency Contact #2 : n/a Emergency Contact #2 Phone Number : n/a Emergency Contact #2 Relationship : n/a Chief Complaint : L/C Information Obtained From : Patient Primary Language : Yoruba Preferred Communication Mode : Verbal Communication Barrier : None Boatswain'S Mate Needed : No LETY WASSERMAN RN - [...] Scale Risk Level : 0-24 Low Risk [place] Fall Interventions : Adequate lighting, Assistive devices [...] on filedocumented in this encounter Care Teams Testing Director Relationship Specialty Start Date End Date Reina Olmedo, FLOORING GRADER [address] [place] [address] PCP - General Nurse Practitioner 11/14/22 10/01/23 documented as of this encounter
--- OUTSIDE RECORDS SUMMARY | 2024-11-08 18:55 | XMS_ITS | Encounter Summary ---
Author Organization [employer] ([place], [place], [place], [place]) Address [address] [place] [address] Care Team Providers Care Regional Branch Manager Name Role Phone Reina Olmedo DASHAWN Primary Care Provider [phone] Encounter Details Date Type Department Care Team (Late st Contact Info) Description 03/13/2021 Transcribed Document [facility] [place] [address] [place] [address] ProviderVeronica MD [address] [place] [address] Social History Tobacco Use Types [...] - Historical ProviderMD - 03/13/2021 2:30 PM DROSS SKIMMER [facility] Mary PreOp Summary Primary Physician: CARINE AMATO MD-GAE Finalized Date/Time: 03/13/21 14:22:39 Pt. Name: YANE REBOLLEDO/Sex: 1970 Female Med Rec #: [id number] Physician: CARINE AMATO MD-GAE Financial #: [id number] Pt. Type: E [place] [facility] [place] Admit/Disch: 03/13/21 12:24:00 - Institution: [facility] Mary PreOp Case Times Entry 1 In Preop 03/13/21 13:58:00 Ready for Holding n/a Room Patient Ready for n/a Surgery Patient Out of Preop 03/13/21 14:22:00 Patient Out of n/a Holding Room Finalized By: Vanna Durant, Rn Document Signatures Signed By: Vanna Durant Rn 03/13/21 14:22 Electronically signed by Tayler Carnes Conversion Senior Environmental Technician Cerner at 07/09/2022 12:16 PM CDT documented in this encounter Plan of Treatment Not on file documented as of this encounter Visit Diagnoses Not on filedocumented in this encounter Care Teams Regional Branch Manager Relationship Specialty Start Date End Date Reina, FILTER PRESS TENDER HEAD [address] [place] [address] PCP - General Nurse Practitioner 11/14/22 10/01/23 documented as of this encounter
--- OUTSIDE RECORDS SUMMARY | 2024-11-08 18:55 | XMS_ITS | Encounter Summary ---
Author Organization [employer] ([place], [place], [place], [place]) Address [address] [place] [place] [address] Care Team Providers Care Pad Assembler Name Role Phone Reina Olmedo Nilsa TAMEZ Primary Care Provider [phone] Encounter Details Date Type Department Care Team (Late st Contact Info) Description 07/27/2020 Transcribed Document [facility] [place] [address] [place] [address] ProviderVeronica MD [address] [place] [address] Social History Tobacco Use [...] EDT Description of Event : Return from clinical lab specialist per stretcher awake and alert, skin w/d, mother here at bedside. Has TR pressure band right radial artery-CDI, no swelling, no bleeding, no pain. Cap refill less than 2 seconds right fingers. Has arterial splint in place right wrist-returns understanding for use. Food and drink ordered. LETY WASSERMAN, RN - 07/27/2020 11:42 EDT Electronically signed by [facility] Conversion Commuter Train Operator Cerner at 07/09/2022 12:14 PM CDT documented in this encounter Plan of Treatment Not on file documented as of this encounter Visit Diagnoses Not on filedocumented in this encounter Care Teams Pad Assembler Relationship Specialty Start Date End Date Reina Olmedo, RESTAURANT RECRUITER [address] [place] [address] PCP - General Nurse Practitioner 11/14/22 10/01/23 documented as of this encounter
--- OUTSIDE RECORDS SUMMARY | 2024-11-08 18:55 | XMS_ITS | Encounter Summary ---
Author Organization [employer] ([place], [place], [place], [place]) Address [address] [place] [address] Care Team Providers Care High Density Press Laborer Name Role Phone Reina Olmedo APRN Primary Care Provider [phone] Encounter Details Date Type Department Care Team (Late st Contact Info) Description 03/01/2022 Telephone [facility] Primary Care - [place] [id number] [place] [address] Reina Olmedo APRN [address] [place] [address] Social History Tobacco Use Types [...] - 03/01/2022 4:11 PM EST Notified confirmed MOTIVE CUSTOMER EXPERIENCE ADVISOR * Telephone Encounter - Reina Olmedo APRN - 03/01/2022 3:38 PM EST I will change her to vipin for temporary MOTIVE CUSTOMER EXPERIENCE ADVISOR * Telephone Encounter - Charlotte Mckee - 03/01/2022 12:33 PM EST Patient called in states Christopher is out nationwide- back order Pharmacy does not know when they will have it, was advised that other pharmacies do not have it at this time. Would like to see what Shara TAMEZ Recommends either making changes to her current medication or providing alternative Please advise MOTIVE CUSTOMER EXPERIENCE ADVISOR documented in this encounter Plan of Treatment Not on file documented as of this encounter Visit Diagnoses Not on filedocumented in this encounter Care Teams High Density Press Laborer Relationship Specialty Start Date End Date Reina Olmedo APRN [address] [place] [address] PCP - General Nurse Practitioner 11/14/22 10/01/23 documented as of this encounter
--- OUTSIDE RECORDS SUMMARY | 2024-11-08 18:55 | XMS_ITS | Clinical Summary ---
Author Organization [facility] Address [address] [place] [address] Care Team Providers Care Workers Compensation Legal Secretary Name Role Phone Sonia Dumas Primary Care Provider [phone] Allergies Active Allergy Reactions Criticality Noted Date Comments Corylus Hives,Itching,Rash High 01/06/2023 Egg Solids, Whole Hives,Itching,Rash High 01/06/2023 Milk (Cow) Hives,Itching,Rash High 01/06/2023 Molds & Smuts Hives,Itching,Rash High 01/06/2023 Tomato Hives,Itching,Rash High 01/06/2023 Deep Run Hives,Itching,Rash High 01/06/2023 Medications aspirin 81 MG [...] a day. 4 Active ergocalciferol 1.25 MG (30091 UT) capsule Take 1 capsule (50,000 Units) [...] Due Date Last Done Comments [facility]-Diabetes: Hemoglobin A1C 1970 [facility]-HIV Screening 1970 [facility]-Hepatitis C Screening 1970 [facility]-Infant/Child/Adol SDOH Screenings 1970 Diabetes: Dental Exam 1982 [facility]- SDOH Screenings 1990 [facility]-Adult SDOH Screenings 1990 [facility]-Hepatitis B Vaccines (1 of 3 - 19+ 3-dose series) 12/17/1991 CT Colonography 2017 Colonoscopy 2017 [facility]-DNA 2017 FIT 2017 FOBT 2017 Sigmoidoscopy 2017 [facility]-Colorectal Cancer Screening 2017 [facility]-Breast Cancer Screening 2022 11/11/2018 [id number] Vaccine ( season) 2023 12/27/2022, 12/24/2021, 08/09/2021, [...] Narrative SUNQUEST - 02/11/2011 4:50 PM EST [facility] MR #: [id number] [facility] [place] [address] 1970 (Age: 40) FW Collect Date: 02/04/2011 00:00 Receipt Date: 02/05/2011 14:09 Page 1 DEPARTMENT OF PATHOLOGY AND LABORATORY MEDICINE CYTOPATHOLOGY REPORT Email: [email or web address] ATTENDING MD/Practitioner: Gregg Huerta MD Service: OBE Location: [facility] Reported: 02/11/2011 16:50 Collected: 02/04/2011 00:00 INTERPRETATION A. THIN PREP (CERVICAL/VAGINAL): NEGATIVE FOR INTRAEPITHELIAL LESION OR MALIGNANCY. SATISFACTORY FOR EVALUATION; TRANSFORMATION ZONE COMPONENT CANNOT BE DEFINITIVELY IDENTIFIED DUE TO THE PRESENCE OF ATROPHY OR OTHER HORMONAL CHANGES. Slide scanned and imaged by [employer] ThinPrep Imaging System with manual review of [...] results is suggested (please call Microbiology at [phone] for results). CLINICAL INFORMATION: Menstrual History: Other: absent Date of Last Menstrual Period: 09/2008 Contraceptive History: Hormonal Other Clinical Conditions: If ASCUS and > 24 years of age, HPV/DNA testing requested. SPECIMEN DESCRIPTION: A: THIN PREP (CERVICAL/VAGINAL) THIN PREP PROCESS CELLULAR ENHANCEMENT ICD: F: A; RT IMAGE [id number] SNOMED CODES: A; [id number] In cases where a pathologist has signed out the report, the service has been rendered in part by a resident. The signing pathologist has performed and is responsible for the reported pathologic evaluation. Nataliya Huerta MD LAB PATHOLOGY ORDERABLES Fin al Result [facility] from Last 3 Months or Most Recently Relevant to Health Maintenance Insurance [facility] MEDICAID Care Teams Workers Compensation Legal Secretary Relationship Specialty Start Date End Date Sonia Dumas PA [address] [place] [address] PCP - General 02/02/24
--- OUTSIDE RECORDS SUMMARY | 2024-11-08 18:55 | XMS_ITS | Encounter Summary ---
Author Organization [employer] ([place], [place], [place], [place]) Address [address] [place] [address] Care Team Providers Care Title I Paraprofessional Name Role Phone Reina Olmedo DASHAWN Primary Care Provider [phone] Encounter Details Date Type Department Care Team (Late st Contact Info) Description 03/13/2021 Transcribed Document [facility] [place] [address] [place] [address] ProviderVeronica MD [address] [place] [address] Social History Tobacco Use Types [...] - Historical ProviderMD - 03/13/2021 3:43 PM GRAPPLE CREW LEADER [address] [address] AMAURYYANE :1970 Visit Time:03/13/2021 What to do next Follow-Up Appointments Follow Up with CARINE AMATO MD-ASUNCION When Comments Please call the office if you have any questions or concerns. Where: [address] [place] [id number]- Medications What How Much When Instructions Next Dose aspirin (aspirin 81 mg oral delayed release tablet) 1 Tablet(s) Oral Every Day azelastine nasal (azelastine 137 mcg/ inh (0.1%) nasal spray) 2 [place](s) Nasal Two Times A Day citalopram (citalopram 10 mg oral tablet) 1 Tablet(s) Oral At Bedtime DULoxetine 60 Milligram(s) Oral Two Times A Day ergocalciferol (ergocalciferol 50,000 intl units (1.25 mg) oral capsule) 1 Capsule(s) Oral Weekly ergocalciferol (Vitamin D2 1.25 mg (50,000 intl units) oral capsule) Oral Weekly fluticasone nasal (fluticasone 50 mcg/ inh nasal spray) 1 [place]mont(s) Nasal Every Day glimepiride 2 Milligram(s) Oral [...] these instructions at home: Medicines ??? Take wxpe-rcr-jrtwgoa and prescription medicines only as told by [...] provider. Document Revised: 07/28/2018 Document Reviewed: 07/28/2018 ElseBookmycab Patient Education ?? 2020 needmade. ESOPHAGOGASTRODUODENOSCOPY Care After Read the instructions outlined [...] Assistance with quitting is available by contacting 1-487-ZQYT-NOW. This is a free resource providing counseling, [...] between ( 70 and 110 ) Patient Name:YNAE REBOLLEDO I have received this information and was given the opportunity to ask questions. Patient/Acoustical Tile Patternmaker Name: Patient/Acoustical Tile Patternmaker Signature: Relationship to Patient: Clinician/Hospital Acoustical Tile Patternmaker Signature: Date: documented in this encounter Plan of Treatment Not on file documented as of this encounter Visit Diagnoses Not on filedocumented in this encounter Care Teams Title I Paraprofessional Relationship Specialty Start Date End Date Reina, GYMNASTIC TEACHER [address] [place] [address] PCP - General Nurse Practitioner 11/14/22 10/01/23 documented as of this encounter
--- OUTSIDE RECORDS SUMMARY | 2024-11-08 18:55 | XMS_ITS | Encounter Summary ---
Author Organization [employer] ([place], [place], [place], [place]) Address [address] [place] [address] Care Team Providers Care Investigator Fraud Name Role Phone Reina Olmedo DASHAWN Primary Care Provider [phone] [phone] Encounter Details Date Type Department Care Team (Late st Contact Info) Description 03/13/2021 Transcribed Document [facility] [place] [address] [place] [address] ProviderVeronica MD [address] [place] [address] Social History Tobacco Use Types [...] - Historical ProviderMD - 03/13/2021 3:30 PM VALIDATION ANALYST JAZMYN Mary IntraOp Summary Primary Physician: CARINE AMATO MD-GAE Finalized Date/Time: 03/13/21 15:38:27 Pt. Name: YANE REBOLLEDO/Sex: 1970 Female Med Rec #: [id number] Physician: CARINE AMATO MD-GAE Financial #: [id number] Pt. Type: E Room/Bed: [facility] [place] Admit/Disch: 03/13/21 12:24:00 - Institution: [facility] - Case Attendance Entry 1 Entry 2 Entry 3 Case Attendee CARINE AMATO FLEMING, SCOTT, -BARTOLOME ISSA APRN, MD-GAE FARM CONSULTANT-ANS Role Performed Surgeon/Proceduralist, Anesthesiologist of FARM CONSULTANT/Nurse Solar Designer/Installer First Record Time In 03/13/21 15:26:00 03/13/21 15:25:00 03/13/21 15:25:00 Time Out 03/13/21 15:38:00 03/13/21 15:38:00 03/13/21 15:38:00 Procedure Esophagogastroduodenosco Esophagogastroduodenosco Esophagogastroduodenosco py py py Other Attendee Superficial Wound Closed By: Last Modified By: Candy Bell Edmundson, Stephanie, Edmundson, Stephanie, JASSON 03/13/21 15:38:16 RN 03/13/21 15:38:16 RN 03/13/21 15:38:16 Entry 4 Entry 5 Case Attendee Onel Martin Edmundson, Stephanie, sebd teacherBuccaro Role Performed Scrub, First Patent Lawyer, First Time In 03/13/21 15:25:00 03/13/21 15:25:00 Time Out 03/13/21 15:38:00 03/13/21 15:38:00 Procedure Esophagogastroduodenosco Esophagogastroduodenosco py py Other Attendee Superficial Wound Closed By: Last Modified By: Candy Bell Edmundson, Stephanie, JASSON 03/13/21 15:38:16 RN 03/13/21 15:38:16 [facility] [place] Endo - Case Attendance Audit 03/13/21 15:38:16 Photo Finish Photographer: [id number] Modifier: [id number] 1 <+> Time Out 1 <*> Procedure Esophagogastroduodenoscopy 2 <+> Time Out 2 <*> Procedure Esophagogastroduodenoscopy 3 <+> Time Out 3 <*> Procedure Esophagogastroduodenoscopy 4 <+> Time Out 4 <*> Procedure Esophagogastroduodenoscopy 5 <+> Time Out 5 <*> Procedure Esophagogastroduodenoscopy 03/13/21 15:35:38 Photo Finish Photographer: [id number] Modifier: [id number] <*> Procedure Esophagogastroduodenoscopy 2 <*> Procedure Esophagogastroduodenoscopy 3 <*> Procedure Esophagogastroduodenoscopy 4 <*> Procedure Esophagogastroduodenoscopy 5 <*> Procedure Esophagogastroduodenoscopy 03/13/21 15:28:29 Photo Finish Photographer: [id number] Modifier: [id number] 1 <*> Time In 03/13/21 15:25:00 1 [...] Endo - Case Times Audit 03/13/21 15:36:56 Photo Finish Photographer: [id number] Modifier: [id number] <+> 1 Out Room Time <+> 1 Stop Time <+> 1 Stop Time 03/13/21 15:31:02 Photo Finish Photographer: [id number] Modifier: [id number] <+> 1 Start Time [facility] - [...] Candy Bell, Accompanied by RN, BARTOLOME POND, ATTRACTION WORKER, FARM CONSULTANT-ANS Last Modified By: Candy Bell RN 03/13/21 15:28:46 [facility] Endo - Endoscopy Details Entry 1 Abdomen [...] Modified By: Candy Bell RN 03/13/21 15:29:03 [facility] [place] Endo - General Case Sound Equipment Mechanic 1 Case Information OR Endo 01 E Case Level 1 Room Verified Yes Wound Class 2 - Clean-Contaminated Specialty Gastroenterology Anesthesia Type MAC ASA Class 3 Diagnosis Preop Diagnosis Dysphagia Postop Diagnosis Esophageal stricture w/dilitation. Mild gastritis. Wound Class Definitions Last Modified By: Candy Bell RN 03/13/21 15:37:40 [facility] [place] Endo - General Case Data Audit 03/13/21 15:37:40 Photo Finish Photographer: [id number] Modifier: [id number] <+> 1 Postop Diagnosis [facility] - [...] Modified By: Candy Bell RN 03/13/21 15:29:48 [facility] [place] Endo - Intraoperative Equipment Entry 1 Type Scope Equipment Intraop Monitoring Electrocardiogram Three lead placement (ECG) Electrode Placement Blood Pressure Arm, left upper Location Pulse Oximeter Hand, right Probe Site Antiembolic Devices Scopes Flexible Endoscopes Gastroscope Used Scope Serial 2540 Number/Identificatio n Number Photo/Video Documentation Photo Yes [...] Positioned By Candy Bell RN, BARTOLOME POND, ATTRACTION WORKER, FARM CONSULTANT-ANS, Onel Martin, Buccaro Position Verified Positioning Yes Verified by Surgeon Last Modified By: Candy Bell RN 03/13/21 15:35:39 [facility] - Patient Positioning Audit 03/13/21 15:35:39 Photo Finish Photographer: [id number] Modifier: [id number] 1 <*> Procedure Esophagogastroduodenoscopy [facility] - Sign In Entry 1 Patient, Site, Yes Procedure Identified Surgical Consent Yes Confirmed Surgical Site N/A Marked by person performing procedure Allergies No Airway Hypothermia Risk No Warming Measures Yes Taken Last Modified By: Candy Bell RN 03/13/21 15:37:50 [facility] - Sign In Audit 03/13/21 15:37:50 Photo Finish Photographer: [id number] Modifier: [id number] <+> 1 Surgical Consent Confirmed [facility] [...] 15:36:00 Physician States Cecum Reached Anesthesia Type [facility] [place] G[place]ology Wound Class 2 - Clean-Contaminated Last Modified By: Candy Bell RN 03/13/21 15:38:24 [facility] - Surgical Procedures Audit 03/13/21 15:38:24 Photo Finish Photographer: [id number] Modifier: [id number] <+> 1 Stop <+> 2 Stop <+> 3 Stop <+> 4 Stop 03/13/21 15:35:28 Photo Finish Photographer: [id number] Modifier: [id number] <+> 1 Start <+> 2 Procedure <+> [...] <+> 4 Additional Procedure Description 03/13/21 15:30:57 Photo Finish Photographer: [id number] Modifier: [id number] 1 <*> Procedure Esophagogastroduodenoscopy 1 <+> Specialty [...] Endo - Time Out Audit 03/13/21 15:35:40 Photo Finish Photographer: [id number] Modifier: [id number] 1 <*> Procedure to be Performed Esophagogastroduodenoscopy Case Comments <None> Finalized By: Cadny Bell RN Document Signatures Signed By: Candy Bell RN 03/13/21 15:38 Electronically signed by [facility] Conversion Carpenters Helper Cerner at 07/09/2022 12:12 PM CDT documented in this encounter Plan of Treatment Not on file documented as of this encounter Visit Diagnoses Not on filedocumented in this encounter Care Teams Investigator Fraud Relationship Specialty Start Date End Date Reina Olmedo, ATTRACTION WORKER [address] [place] [address] PCP - General Nurse Practitioner 11/14/22 10/01/23 documented as of this encounter
--- OUTSIDE RECORDS SUMMARY | 2024-11-08 18:55 | XMS_ITS | Encounter Summary ---
Author Organization [employer] ([place], [place], [place], [place]) Address [address] [place] [address] Care Team Providers Care Career Center Advisor Name Role Phone NellieReina hancock Nilsa TAMEZ Primary Care Provider [phone] [phone] Encounter Details Date Type Department Care Team (Late st Contact Info) Description 03/13/2021 Transcribed Document [facility] [place] Family Medicine [address] [place] [address] ProviderVeronica MD [address] [place] [address] Social History Tobacco Use Types [...] - Historical ProviderMD - 03/13/2021 2:07 PM CASE PACKER Pre Procedure Adult Entered On: 03/13/2021 14:09 EST Performed On: 03/13/2021 14:07 EST by Vanna Durant Rn Height and Weight, Clinical Dosing Height Source : Stated Height Entry Format : [place] Height, Feet : 5 ft(Converted to: 152 cm, 60 Inch) Height, Inches : 0 Inch(Converted to: 0 ft 0 Inch, 0.00 cm) Clinical Height : 152.4 cm Weight Source : Standing scale Weight Entry Format : [place] Clinical Dosing Weight : 124.64 kg Weight, Pounds : 274.2 lb Body Surface Area (BSA) : 2.14 m2 Body Mass Index : 53.7 kg/m2 (>HHI) [place] Body Weight : 45 kg Vanna Durant [...] Vanna Durant Rn - 03/13/2021 14:07 EST [place] Suicide Severity Rating Scale (C-SSRS) CSSRS Past [...] 03/13/2021 14:07 EST General Info Support Person/Patient Diesel Mechanic Helper : Yes Want Family/Rep/Phys Notified of Admit : No Emergency Contact #1 : Meryl Emergency Contact #1 Emergency Contact #1 Relationship : mother Emergency Contact #2 : . Emergency Contact #2 Phone Number : . Emergency Contact #2 Relationship : . Primary Language : Iranian Preferred Communication Mode : Verbal Communication Barrier : None Piping Designer Needed : No Vanna Durant Rn - [...] Scale Risk Level : 0-24 Low Risk [place] Fall Interventions : Adequate lighting, Assistive devices within reach, Bed in low position, Call device within reach Vanna Durant Rn - 03/13/2021 14:07 EST Valuables and Belongings Valuables and Belongings : Clothing Clothing : Common streetwear Clothing Disposition : Bedside Vanna Durant Rn - 03/13/2021 14:07 EST documented in this encounter Plan of Treatment Not on file documented as of this encounter Visit Diagnoses Not on filedocumented in this encounter Care Teams Career Center Advisor Relationship Specialty Start Date End Date Reina Olmedo, DASHAWN [address] [place] [address] PCP - General Nurse Practitioner 11/14/22 10/01/23 documented as of this encounter
--- OUTSIDE RECORDS SUMMARY | 2024-11-08 18:55 | XMS_ITS | Encounter Summary ---
Author Organization [employer] ([place], [place], [place], [place]) Address [address] [place] [address] Care Team Providers Care Mobile Service Rv Technician Name Role Phone Nelliekarissa Reina Nilsa TAMEZ Primary Care Provider [phone] [phone] Encounter Details Date Type Department Care Team (Late st Contact Info) Description 11/08/2020 Transcribed Document [facility] [place] Medicine [address] [place] [address] ProviderVeronica MD [address] [place] [address] Social History Tobacco Use Types [...] 84. Artifact was present at intervals. 7. Obes-no-uadcldvu snoring was present. IMPRESSION: Moderate obstructive sleep apnea. PLAN: The patient is scheduled to return to clinic to review data and treatment options. In the interim, she will be offered a trial of auto CPAP at 6-20 cm. /[id number] Melinda Lopez MD PAC/AQ / PAC / MODL /[id number] Electronically signed by Deyvi [facility] Conversion Library Clerk Talking Books Cerner at 07/09/2022 12:17 PM CDT documented in this encounter Plan of Treatment Not on file documented as of this encounter Visit Diagnoses Not on filedocumented in this encounter Care Teams Mobile Service Rv Technician Relationship Specialty Start Date End Date Reina Olmedo, MANAGER EMBALMER FUNERAL DIRECTOR [address] [place] [address] PCP - General Nurse Practitioner 11/14/22 10/01/23 documented as of this encounter
--- OUTSIDE RECORDS SUMMARY | 2024-11-08 18:55 | XMS_ITS | Encounter Summary ---
Author Organization [employer] ([place], [place], [place], [place]) Address [address] [place] [address] Care Team Providers Care Air Surveillance Operator Name Role Phone Reina Olmedo APRN Primary Care Provider [phone] [phone] Encounter Details Date Type Department Care Team (Late st Contact Info) Description 12/02/2019 Transcribed Document [facility] [place] Medicine [address] [place] [address] ProviderVeronica MD [address] [place] [address] Social History Tobacco Use [...] YANE REBOLLEDO/Sex: 1970 Female Med Rec #: [id number] Physician: YOU HAWTHORNE MD-OBG Financial #: [id number] Pt. Type: O Room/Bed: Admit/Disch: 12/02/19 11:24:00 - Institution: [facility] PreOp Case Times Entry 1 In Preop 12/02/19 11:40:00 Ready for Holding n/a Room Patient Ready for 12/02/19 13:11:00 Surgery Patient Out of Preop 12/02/19 15:14:00 Patient Out of n/a Holding Room Last Modified By: CRISTINA JUAREZ RN 12/02/19 16:00:45 [facility] PreOp Case Times Audit 12/02/19 16:00:45 [place]agsaw Operator: YULI Modifier: [email or web address] <+> 1 Patient Out of Preop Finalized By: CRISTINA JUAREZ, RN Document Signatures Signed By: CRISTINA JUAREZ RN 12/02/19 16:01 documented in this encounter Plan of Treatment Not on file documented as of this encounter Visit Diagnoses Not on filedocumented in this encounter Care Teams Air Surveillance Operator Relationship Specialty Start Date End Date Reina Olmedo, COMMUNICATIONS PROFESSOR [address] [place] [address] PCP - General Nurse Practitioner 11/14/22 10/01/23 documented as of this encounter
--- OUTSIDE RECORDS SUMMARY | 2024-11-08 18:55 | XMS_ITS | Encounter Summary ---
Author Organization [employer] ([place], [place], [place], [place]) Address [address] [place] [address] Care Team Providers Care Excel Developer Name Role Phone Reina Olmedo APRN Primary Care Provider [phone] [phone] Encounter Details Date Type Department Care Team (Late st Contact Info) Description 12/02/2019 Transcribed Document [facility] [place] Family Medicine [address] [place] [address] ProviderVeronica MD [address] [place] [address] Social History Tobacco Use Types [...] ANGÉLICA REBOLLEDO/Sex: 1970 Female Med Rec #: [id number] Physician: YOU HAWTHORNE MD-OBG Financial #: [id number] Pt. Type: O Room/Bed: Admit/Disch: 12/02/19 11:24:00 - Institution: [facility] Case Attendance Entry 1 Entry 2 Entry 3 Case Attendee YOU HAWTHORNE Holliday, Stewart R, RN ANTONIO CABRERA, LIZZ BECERRA-OBG Role Performed Surgeon/Proceduralist, Wildland Fire Fighter Specialist, First KNURLING MACHINE OPERATOR/Nurse Felt Finishing Supervisor First Time In 12/02/19 15:17:00 12/02/19 15:17:00 12/02/19 15:17:00 Time Out 12/02/19 16:14:00 12/02/19 16:14:00 12/02/19 15:46:00 Procedure Myomectomy Hysteroscopic Myomectomy Hysteroscopic Myomectomy Hysteroscopic Other Attendee Superficial Wound Closed By: Last Modified By: Foster Avilez, RN Foster Avilez, RN Foster Avilez, JASSON 12/02/19 16:14:35 12/02/19 16:14:35 12/02/19 16:14:35 Entry 4 Entry 5 Case Attendee ADRIÁN GOMEZ ST BROWNING, JANICE R, LAMINATING MACHINE OPERATOR-ANS Role Performed Scrub, First KNURLING MACHINE OPERATOR/Nurse Felt Finishing Supervisor Time In 12/02/19 15:17:00 12/02/19 15:46:00 Time Out 12/02/19 16:14:00 12/02/19 16:14:00 Procedure Myomectomy Hysteroscopic Myomectomy Hysteroscopic Other Attendee Superficial Wound Closed By: Last Modified By: Foster Avilez RN Holliday, Stewart R, JASSON 12/02/19 16:14:35 12/02/19 16:14:35 E IntraOp Case Attendance Audit 12/02/19 16:14:35 Covering Machine Operator Helper: JERONIMO Modifier: [email or web address] 1 <+> Time Out 1 <*> Procedure Myomectomy Hysteroscopic 2 <+> Time Out 2 <*> Procedure Myomectomy Hysteroscopic 3 <*> Procedure Myomectomy Hysteroscopic 4 <+> Time Out 4 <*> Procedure Myomectomy Hysteroscopic 5 <+> Time Out 5 <*> Procedure Myomectomy Hysteroscopic 12/02/19 15:49:20 Covering Machine Operator Helper: JERONIMO Modifier: [email or web address] 1 <+> Time In 1 <*> Procedure Myomectomy Hysteroscopic 2 <+> Time In 2 <*> Procedure Myomectomy Hysteroscopic 3 <+> Time In 3 <+> Time Out 3 <*> Procedure Myomectomy Hysteroscopic 4 <+> Time In 4 <*> Procedure Myomectomy Hysteroscopic <+> 5 Case Attendee <+> 5 Role Performed <+> 5 Time In <+> 5 Procedure 12/02/19 15:11:56 Covering Machine Operator Helper: [email or web address] Modifier: [email or web address] <+> Case Attendee [...] [facility] Case Times Audit 12/02/19 16:14:34 Covering Machine Operator Helper: WALTERIDSR Modifier: [email or web address] <+> 1 Out Room Time <+> 1 Stop Time 12/02/19 16:04:01 Covering Machine Operator Helper: WALTERIDSR Modifier: [email or web address] <+> 1 Stop Time 12/02/19 15:39:00 Covering Machine Operator Helper: WALTERIDSR Modifier: [email or web address] <+> 1 Start Time [...] IntraOp Departure from OR Audit 12/02/19 15:11:36 Covering Machine Operator Helper: JERONIMO Modifier: [email or web address] <+> 1 Transfer to <+> 1 Handoff Method [facility] Fire Risk Assessment Entry 1 Fire Info Surgical Site or 0- No Incision Above the Xyphoid Open O2 Source 0- No (Mask or Cannula) Available Ignition 0- No (ESU, Laser, Light Source) Fire Risk 0 Assessment Score Fire Score Fire Risk Yes Assessment Complete Fire Risk Foster Avilez auditing control clerk Verified By Fire Risk 12/02/19 15:09:00 Assessment Verified Date/Time Fire Risk Last Modified By: Foster Avilez RN 12/02/19 15:09:44 [facility] General Case Biodiesel Plant Operations Engineer 1 Case Information OR OR 07 [facility] Case Level 1 Room Verified Yes Wound Class II - Clean-Contaminated Specialty SN Gynecology Anesthesia Type General ASA Class 3 Diagnosis Preop Diagnosis AUB Postop Diagnosis refer to MD notes Last Modified By: Foster Avilez RN 12/02/19 15:28:51 [facility] General Case Data Audit 12/02/19 15:28:51 Covering Machine Operator Helper: JERONIMO Modifier: [email or web address] <+> 1 Room Verified 12/02/19 15:28:47 Covering Machine Operator Helper: JERONIMO Modifier: [email or web address] <+> 1 ASA Class [...] Entry 1 Medication/Irrigant Monsels 500ml solution - [id number] Dose Administered By YOU HAWTHORNE MD-OBG Procedure [...] Intra Op Sign Out Audit 12/02/19 16:14:49 Covering Machine Operator Helper: [email or web address] Modifier: [email or web address] <+> 1 RN Sign [...] [facility] Surgical Procedures Audit 12/02/19 16:04:02 Covering Machine Operator Helper: JERONIMO Modifier: [email or web address] <+> 1 Stop [facility] [...] RN 12/02/19 16:14 Electronically signed by Deyvi [facility] Conversion Production Sanitizer Cerner at 07/09/2022 12:39 PM CDT documented in this encounter Plan of Treatment Not on file documented as of this encounter Visit Diagnoses Not on filedocumented in this encounter Care Teams Excel Developer Relationship Specialty Start Date End Date Reina Olmedo, LAMINATING MACHINE OPERATOR [address] [place] [address] PCP - General Nurse Practitioner 11/14/22 10/01/23 documented as of this encounter
--- OUTSIDE RECORDS SUMMARY | 2024-11-08 18:55 | XMS_ITS | Encounter Summary ---
Author Organization [employer] ([place], [place], [place], [place]) Address [address] [place] [address] Care Team Providers Care Box Office Manager Name Role Phone Reina Olmedo DASHAWN Primary Care Provider [phone] Encounter Details Date Type Department Care Team (Late st Contact Info) Description 07/27/2020 Transcribed Document [facility] [place] Family Medicine [address] [place] [address] ProviderVeronica MD [address] [place] [address] Social History Tobacco Use Types [...] LETY WASSERMAN, RN - 07/27/2020 8:43 EDT documented in this encounter Plan of Treatment Not on file documented as of this encounter Visit Diagnoses Not on filedocumented in this encounter Care Teams Box Office Manager Relationship Specialty Start Date End Date Reina, GENERAL PEDIATRICIAN [address] [place] [address] PCP - General Nurse Practitioner 11/14/22 10/01/23 documented as of this encounter
--- OUTSIDE RECORDS SUMMARY | 2024-11-08 18:55 | XMS_ITS | Encounter Summary ---
Author Organization [employer] ([place], [place], [place], [place]) Address [address] [place] [address] Care Team Providers Care Mental Health Aides Teacher Name Role Phone Nelliekarissa Reina Nilsa TAMEZ Primary Care Provider [phone] [phone] Encounter Details Date Type Department Care Team (Late st Contact Info) Description 08/04/2020 Transcribed Document [facility] [place] Family Medicine [address] [place] [address] ProviderVeronica MD [address] [place] [address] Social History Tobacco Use [...] and water are not available, use hand director of gift planning. ? Change or remove your dressing as [...] Do not have sex. Medicines ??? Take tlxl-ogh-bxfwxwf and prescription medicines only as told by your health care provider. ??? Ask your health care provider if the medicine prescribed to you: ? Requires you to avoid driving or using heavy machinery. ? Can cause constipation. You may need to take actions to prevent or treat constipation, such as: ? Drink enough fluid to keep your urine pale yellow. ? Take utjx-otx-glyfpri or prescription medicines. ? Eat foods that [...] provider. Document Revised: 03/01/2019 Document Reviewed: 03/01/2019 [employer] Patient Education ? 2020 [employer] Total Laparoscopic Hysterectomy, Care After This [...] and water are not available, use hand director of gift planning. ? Change your dressing as told by [...] by your health care provider. ??? Take mlij-ufn-dtneagz and prescription medicines only as told by [...] urine clear or pale yellow. ? Take pomq-uhy-yyvayeu or prescription medicines. ? Eat foods that [...] provider. Document Revised: 02/20/2018 Document Reviewed: 05/21/2017 [employer] Patient Education ? 2020 [employer]. documented in this encounter Plan of Treatment Not on file documented as of this encounter Visit Diagnoses Not on filedocumented in this encounter Care Teams Mental Health Aides Teacher Relationship Specialty Start Date End Date Reina Olmedo, TALENT ACQUISITION SOURCER [address] [place] [address] PCP - General Nurse Practitioner 11/14/22 10/01/23 documented as of this encounter
--- OUTSIDE RECORDS SUMMARY | 2024-11-08 18:55 | XMS_ITS | Encounter Summary ---
Author Organization [employer] ([place], [place], [place], [place]) Address [address] [place] [address] Care Team Providers Care Education Assistant Name Role Phone NellieReina hancock Nilsa TAMEZ Primary Care Provider [phone] [phone] Reason for Visit * Reason Onset Date Comments Medication Refill 07/23/2023 Encounter Details Date Type Department Care Team (Late st Contact Info) Description 07/23/2023 Refill [facility] Cardiology - [address] [place] [address] Rosa Jean-Baptiste MD [address] [place] [address] Social History Tobacco Use Types Packs/Day Years [...] Date Joshua rded Speak language other than Andorran at home Not on file 04/09/2023 Want [...] on filedocumented in this encounter Care Teams Education Assistant Relationship Specialty Start Date End Date Reina Olmedo, AUTOMOTIVE SERVICE ADVISOR [address] [place] [address] PCP - General Nurse Practitioner 11/14/22 10/01/23 documented as of this encounter
--- OUTSIDE RECORDS SUMMARY | 2024-11-08 18:55 | XMS_ITS | Encounter Summary ---
Author Organization [employer] ([place], [place], [place], [place]) Address [address] [place] [address] Care Team Providers Care Chemical Production Machine Operator Name Role Phone Reina Olmedo HEEL SLUGGER Primary Care Provider [phone] [phone] Reason for Visit * Reason Onset Date Comments Medication Refill 02/25/2023 Encounter Details Date Type Department Care Team (Late st Contact Info) Description 02/25/2023 Refill [facility] Primary Care [facility] [address] [place] [address] Reina Olmedo HEEL SLUGGER [address] [place] [address] Anxiety and depression Social History [...] depression documented in this encounter Care Teams Chemical Production Machine Operator Relationship Specialty Start Date End Date Reina Olmedo APRN [address] [place] [address] PCP - General Nurse Practitioner 11/14/22 10/01/23 documented as of this encounter
--- OUTSIDE RECORDS SUMMARY | 2024-11-08 18:55 | XMS_ITS | Encounter Summary ---
Author Organization [facility] ([place], [place], [place], [place]) Address [address] [place] [address] Care Team Providers Care Rap Artist Name Role Phone Nelliekarissa Reina Ash APRN Primary Care Provider [phone] Encounter Details Date Type Department Care Team (Late st Contact Info) Description 07/26/2020 Transcribed Document [facility] [address] [place] [address] ProviderVeronica MD [address] [place] [address] Social History Tobacco Use Types [...] Source : Stated Height Entry Format : [place] Height, Feet : 5 ft(Converted to: 152 cm, 60 Inch) Height, Inches : 0 Inch(Converted to: 0 ft 0 Inch, 0.00 cm) Clinical Height : 152.4 cm Weight Source : Standing scale Weight Entry Format : [place] Clinical Dosing Weight : 127.73 kg Weight, Pounds : 281 lb Body Surface Area (BSA) : 2.16 m2 Body Mass Index : 55 kg/m2 (>HHI) [place] Body Weight : 45 kg RENZO MORRELL [...] RENZO MORRELL RN - 07/26/2020 13:15 EDT [place] Suicide Severity Rating Scale (C-SSRS) CSSRS Past [...] #2 Relationship : - Primary Language : Khmer Preferred Communication Mode : Verbal Communication Barrier : None Wood Tank Builder Needed : No RENZO MORRELL RN - [...] on filedocumented in this encounter Care Teams Rap Artist Relationship Specialty Start Date End Date Reina Olmedo, [employer] [address] [place] [address] PCP - General Nurse Practitioner 11/14/22 10/01/23 documented as of this encounter
[2024-11-08 18:57] LABS: Hematocrit 31.6 % (37.0-47.0); Hemoglobin 10.8 g/dL (12.2-16.2); Immature Granulocytes % 0.3 %; Mean Corpuscular HGB Conc 34.2 g/dL (31.8-35.4); Mean Corpuscular Hemoglobin 30.0 pg (27.0-31.2); Mean Corpuscular Volume 87.8 fl (81-99); Nucleated Red Blood Cells % 0 %; Platelet Count 245 K/mm3 (142-424); Red Blood Count 3.60 M/mm3 (4.20-5.40); Red Cell Distribution Width-SD 53.1 fL; White Blood Count 3.7 K/mm3 (4.8-10.8)
[2024-11-08 18:59] LABS: Lactate Venous 1.1 mmol/L (0.4-2.0); VBG HCO3 26.7 mmol/L (23-30); VBG PCO2 44.2 mmol/L (35-51); VBG PH 7.40 mmol/L (7.31-7.41); VBG PO2 46.4 mmol/L (28-40)
--- NOTE | 2024-11-08 19:03 | ECG_ITS ---
APPROVED REPORT Exam: Resting ECG HR:69 bpm ECG Measurements Heart Rate 69 AXES MI 200 P 53 QRSd 104 QRS 40 QT 415 T 26 QTc 434 Conclusion SINUS RHYTHM LOW QRS VOLTAGE IN PRECORDIAL LEADS [QRS DEFLECTION < 1.0 mV IN CHEST LEADS] ANTEROSEPTAL MYOCARDIAL INFARCTION , PROBABLY OLD [40+ ms Q WAVE IN V1-V4] ABNORMAL ECG UNCONFIRMED REPORT Normal sinus rhythm. No ST elevation or depression. Electronically signed by : KAROLINA CHARLES, 11/09/2024 14:45:44
[2024-11-08 19:06] LABS: Albumin Level 2.5 g/dl (3.5-5.0); Chloride 101 mmol/L (98-107); Sodium 136 mmol/L (136-145)
[2024-11-08 19:08] LABS: Alanine Aminotransferase 33 U/L (12-78); Aspartate Amino Transferase 47 U/L (14-36); Blood Urea Nitrogen 19 mg/dl (7-17); Creatinine Clearance Estimated 48 mL/min (50-200); Creatinine,Serum 1.00 mg/dl (0.52-1.04); Estimated Glomerular Filt Rate 58 ml/min (>60); GFR (African American) 71 ML/MIN (>60)
[2024-11-08 19:09] LABS: Alkaline Phosphatase 113 U/L (38-126); Anion Gap 8.4 mEq/L (5-15); Bilirubin,Total 0.7 mg/dl (0.2-1.3); Calcium 7.8 mg/dl (8.4-10.2); Carbon Dioxide 29 mmol/L (22.0-30.0); Magnesium 1.4 mg/dl (1.6-2.3); Total Protein,Serum 5.2 g/dl (6.3-8.2)
[2024-11-08 19:10] LABS: Potassium 2.4 mmoL/L (3.5-5.1)
[2024-11-08] MEDS: DEXTROSE 5 % IN WATER 1,000 ML 125 ML IV (19:14)
--- NOTE | 2024-11-08 19:16 | PC.NURSE ---
Report received from Geraldine SPAULDING Pt awake alert and oriented x Skin pink warm and dry Resp full and easy Speech clear and appropriate Family at bedside
--- NOTE | 2024-11-08 19:18 | PC.NURSE ---
critical called from MD jane notified
[2024-11-08 19:29] LABS: Troponin I < 0.01 ng/ml (0.00-0.034)
[2024-11-08 19:30] LABS: Albumin/Globulin Ratio 0.9 (1.1-1.8); Globulin 2.7 g/dL (1.3-3.2); Glucose 46 mg/dl (74-100)
[2024-11-08] MEDS: ONDANSETRON 4MG/2ML VIAL 4 MG IV (19:33)
--- NOTE | 2024-11-08 19:46 | PC.NURSE ---
pt blood sugar @19:44
--- NOTE | 2024-11-08 20:42 | PC.NURSE ---
Report given to Sonia SPAULDING Pt transported to inpatient unit via stretcher by Tech NO change in previous assessment
[2024-11-08] MEDS: MAGNESIUM SULFATE IN WATER 2 GM/50 ML PIGGYBACK IV (20:45)
[2024-11-08] MEDS: POTASSIUM CHLORIDE 20MEQ TAB 80 MEQ PO (20:45)
[2024-11-08 22:32] LABS: Troponin I < 0.01 ng/ml (0.00-0.034)
[2024-11-08] MEDS: DEXTROSE 50% 50ML SYRINGE (CRASH CART) 25 ML IVP (23:45)
[2024-11-09] VITALS: BP 92/53; PULSE 70; PULSE 72; RESP 16; TEMP 36.7; O2SAT 98
--- NOTE | 2024-11-09 00:06 | PC.NURSE ---
Pt arrived to unit earlier in the shift. FSBS was 65. Gave grape juice with sugar. Upon recheck, FSBS was 44. Pt denied hypoglycemic symptoms, just stated that she was tired. Still AOx4. Notified provider. Gave orange juice with sugar and encouraged pt to eat some ted crackers with grape jelly and administered D50 IVP per provider order. Upon recheck, FSBS was 136. Pt is currently resting in bed with eyes open watching tv. Respirations even and unlabored. Bed is low, locked, and call light is in reach. Pt denies pain or any additional needs at this time.
[2024-11-09 00:12] LABS: POC Glucose,Bedside 136 (70-110)
[2024-11-09 00:12] LABS: POC Glucose,Bedside 65 (70-110)
--- NOTE | 2024-11-09 00:51 | P.HP_ITS ---
<Statement entered by Jerome Higginbotham MD - 11/09/24 17:12> Rounded on patient after nurse practitioner. Personally examined and interviewed patient. Agree with exam findings and care plan as documented. History of Present Illness *Admission Date: 11/09/24 *Reason for visit:: Episodes of weakness question hypoglycemia *History of present illness: Ms. Oconnor has a very unique history. Short overweight woman, with a long history of mental health issues with depression, PTSD anxiety. Patient also noting for having hysterectomy but continuing to have her ovaries.. Patient had a gastric bypass surgery done where her weight was 316 pounds in January 2024 has d ecreased to 216 pounds as of this admission.. Patient has noted she was on diabetic medicines which she is still taking and has had 2 episodes of blood sugars being less than 50 while here in the hospital requiring some D50 having the patient eat. Noting the patient's history on several mental health patient is appropriate but very mechanical in her responses.. Also unsure of why the patient has suddenly started to have the spell may be simple as having a virus or the fact that she is lost to 100 pounds needs to have her medication decreased.. She is now 66% of her former self. Patient a lso noted for a long history of lymphedema wearing a mechanical type Unna boot for the lower extremities.. White count is not elevated but urine was not obtained in the ER we will get a urine to see if there was an undiagnosed urinary tract infection.. Patient had been noted in the past of having a lot of cellulitis and fungal infection to the skin in the skin folds these has decreased with her weight loss. There are still 2 areas on her feet with a slight bit of skin breakdown 1 on the right foot which is taped on the big toe and on the little toe on the left which is very insignificant also almost like a scratch from to the symphysis pubis but has a little bit of skin missing. But no signs of cellulitis or acute infection at this time. But with the patient's symptoms being as bad as are went ahead and admitted her and once here on the floor even though she was laying in bed and talking her blood sugar decreased immensely and had to give her to D50 to bring it back up have the nurse to give her some juice and then make her actually eat something so we would have some calories in her. Also noting we have put in dietary consult as the patient recently had esophageal strictures stretched because she was having problems swallowing. To make sure that she is on the right diet that she is able to chew and swallow the food that I have mechanically will transport to this time. Noting her mother is with her and is very doting upon her and they seem to get along quite well Even though the patient is lost to 100 pounds she still uses a walker to get around. She says she is able to make about 3 rounds in the house on her walker independently. [facility] Disclaimer: The information contained in this section may have been updated after the patient was seen, as this information can be updated by other users. Medical History (Updated 11/09/24 @ 02:05 by Kilo Diehl MD) Rib pain on left side Hypoglycemia PTSD (post-traumatic stress disorder) Generalized anxiety disorder Allergic rhinitis Discoloration and thickening of nails both feet Decreased sensation of foot Other specified symptoms and signs involving the circulatory and respiratory systems Keratosis Callus of heel Bluish skin discoloration Cold extremities Decreased pedal pulses Infestation by bed bug Numbness and tingling of both lower extremities Vomiting Candidal intertrigo Lumbago with sciatica Cutaneous candidiasis Lymphedema Postmenopausal Osteoarthritis Admitted for observation Lymphedema of leg Bipolar 2 disorder, major depressive episode BMI 50.0-59.9, adult Vitamin D deficiency Anxiety and depression GERD (gastroesophageal reflux disease) Hypothyroid HLD (hyperlipidemia) Seasonal allergies HTN (hypertension) Diabetes Cellulitis Candidal intertrigo Left knee pain Right knee pain Surgical History (Updated 11/09/24 @ 12:45 by Margaret Campbell MD) History of bariatric surgery H/O skin graft History of partial hysterectomy Family History Brother Asthma Diabetes Grandfather Asthma Cancer Mother Coronary artery disease Grandmother Diabetes Other Heart attack Hyperlipidemia Hypertension Thyroid disorder Social History (Updated 11/08/24 @ 22:31 by Alva Fontaine RN) Smoking Status: Never smoker how long ago did patient quit smokin years ago alcohol intake: never substance use type: denies use current occupational status: unemployed Travel in the last 8 weeks?: None marital status: legally service: No jail: No current occupational exposures/hazards: No Hx Recent Travel: No Other Medical History Have you received the Flu Vaccine for this season: Yes Have you received the Pneumonia Vaccine: Yes Review of Systems Review of Systems Review of systems:: pertinent systems reviewed and negative unless documented below Constitutional Constitutional: Reports as per HPI and Reports weight loss Comments: Weight loss from bariatric surgery, patient is slightly mechanical on several psychiatric drugs. But she is alert oriented and answers questions well, can participate in care without limitation, ENT Ears, Nose, Mouth, and Throat: Reports as per HPI Comments: Patient has had a recent history of esophageal stricture that has been dilated it was causing her problems to eat and had to eat only certain foods so they would not become stuck *Cardiovascular Cardiovascular: Reports as per HPI Comments: Patient reports no history of cardiac pain. But notes she has always had lymphedema of the lower extremities *Gastrointestinal Gastrointestinal: Reports as per HPI *Genitourinary Genitourinary: Reports as per HPI *Musculoskeletal Musculoskeletal: Reports as per HPI Integumentary/Breasts Skin/Breast: Reports as per HPI *Neurologic Neurologic: Reports as per HPI Psychiatric Psychiatric: Reports as per HPI, Reports abnormal sleep pattern and Reports depression Endocrine Endocrine: Reports as per HPI Hematologic/Lymphatic Hematologic/Lymphatic: Reports as per HPI Allergic/Immunologic Allergic/Immunologic: Reports as per HPI Meds Home Medications and Allergies Home Medications ?Medication ?Instructions ?Recorded ?Confirmed ?Type aspirin 81 mg tablet,delayed 81 mg PO DAILY 09/08/23 0 11/08/24 History release (Adult Low Dose Aspirin) lancets 28 gauge (FreeStyle #100 ea 09/08/23 11/08/24 History Lancets) blood sugar diagnostic (FreeStyle #100 ea 10/17/23 Rx Lite Strips) glimepiride 1 mg tablet 1 mg PO DAILY #90 tabs 05/1411/08/24 Rx hydroxyzine HCl 50 mg tablet 100 mg (2 x 50 mg) PO HS 90 days 05/14/24 11/08/24 Rx #180 tabs levocetirizine 5 mg tablet 5 mg PO DAILY 05/14/2410/22 History losartan 50 mg-hydrochlorothiazide 1 tab PO BID 90 day s #180 tabs 05/14/24 11/08/24 Rx 12.5 mg tablet omeprazole 40 mg capsule,delayed 40 mg PO DAILY #90 ca ps 05/14/24 11/08/24 Rx release simvastatin 40 mg tablet 40 mg PO HS #90 tabs 5 11/08/24 Rx metoprolol tartrate 25 mg tablet 25 mg PO BID #180 tab s 06/15/24 11/08/24 Rx trazodone 100 mg tablet 100 mg PO DAILY #30 tabs 12/1611/08/24 Rx duloxetine 60 mg capsule,delayed 60 mg PO BID 90 days #180 caps 09/27/24 11/08/24 Rx release Diabetic Shoes (DME) #1 ea 09/28/24 11/08/24 Rx cholecalciferol (vitamin D3) 125 125 mcg PO DAILY 10/2211/08/24 History mcg (5,000 unit) tablet (Vitamin D3) citalopram 40 mg tablet 40 mg PO HS 11/08/24 5 History ferrous sulfate 325 mg (65 mg 325 mg PO BID 11/08/24 0 11/08/24 History iron) tablet (Iron (ferrous sulfate)) lamotrigine 25 mg tablet (Lamictal) 100 mg PO DAILY 11/09/24 History levothyroxine 137 mcg tablet 137 mcg PO 0700 11/08/24 11/09/24 History montelukast 10 mg tablet 10 mg PO HS 11/08/24 5 History amitriptyline 50 mg tablet 50 mg PO HS 11/09/24 History triamcinolone acetonide 0.1 % 1 applic topical BIDP GA N FLARES 11/09/24 11/09/24 History topical ointment New Prescriptions to Start Prescriptions: Allergies Allergy/AdvReac Type Severity Reaction Status Date / Time milk AdvReac Mild Rash Verified 10/13/24 10:40 Exam Data for Last 24 hours Vital signs and Labs for Last 24 Hours: Temp Pulse Resp BP Pulse Ox O2 Del Method 98.3 F 74 16 115/66 100 Room Air 11/08/24 21:30 11/08/24 21:30 11/08/24 21:30 11/08/24 21:30 11/08/24 21:30 11/08/24 23:00 Laboratory Results - last 24 hr 11/08/24 18:50: WBC 3.7 L, RBC 3.60 L, Hgb 10.8 L, Hct 31.6 L, MCV 87.8, MCH 30.0, MCHC 34.2, RDW 16.5, Plt Count 245, MPV 8.5, Neut % (Auto) 47.3, Lymph % (Auto) 40.9, [place] % (Auto) 10.1 H, Eos % (Auto) 1.1, Baso % (Auto) 0.3, Neut # (Auto) 1.7 L, Lymph # (Auto) 1.5, [place] # (Auto) 0.4, Eos # (Auto) 0.0, Baso # (Auto) 0.0, VBG pH 7.40, VBG pCO2 44.2, VBG pO2 46.4 H, VBG HCO3 26.7, VBG Total CO2 28.1 H, VBG O2 Saturation 78.1 H, VBG Base Excess 1.9, VBG Lactic Acid 1.1, Sodium 136, Potassium 2.4 L*, Chloride 101, Carbon Dioxide 29, Anion Gap 8.4, BUN 19 H, Creatinine 1.00, Estimated Creat Clear 48, Estimated GFR 58 L, Est GFR ( Amer) 71, Glucose 46 L*, Calcium 7.8 L, Magnesium 1.4 L, Total Bilirubin 0.7, AST 47 H, ALT 33, Alkaline Phosphatase 113, Troponin I < 0.01, Total Protein 5.2 L, Albumin 2.5 L, Globulin 2.7, Albumin/Globulin Ratio 0.9 L 11/08/24 21:50: Troponin I < 0.01 11/08/24 22:12: POC Glucose 65 L 11/09/24 00:05: POC Glucose 136 H I & O for Last 24 hours: Intake & Output 11/06/24 11/07/24 11/08/24 11/09/24 05:59 05:59 05:59 05:59 Intake Total 250 / 250 Balance 250 / 250 Weight 216 lb 2 oz Narrative: Patient answered questions well did a nice physical exam. Mother was in the room to examine in skin folds to make sure there was no sign of yeast infection. Constitutional Constitutional: no acute distress Comments: Patient in no distress at this time actually alert oriented not complaining of any pain *Routine HEENT Exam Head: Present normocephalic and atraumatic Eye: Present EOMI, PERRL and normal accommodation ENT: Present mucous membranes moist and nares patent *Routine Neck Exam Neck: Present supple and full ROM Routine Chest/Breast/Axilla Exam Comments: No chest wall tenderness was found breast were nontender no signs of skin infection or fungal infection *Routine Respiratory Exam Respiratory: Present CTA bilaterally, normal respiratory effort, able to speak in complete sentences and symmetric chest movement Comments: Patient able to take a deep breath hold her breath let it out without any problems no signs of respiratory difficulty were found *Routine Cardiovascular Exam Cardiovascular: Present Normal S1 and Normal S2 Comments: Did not remove the leg supports from the patient but her ankle showed no signs of edema. But noting that her lower extremities definitely have chronic lymphedema but nothing that appeared to be out of the ordinary according to her mom that this is what was her normal legs *Routine Abdominal Exam Abdominal: Present soft and normoactive bowel sounds Comments: Examination of the abdomen rounded soft nontender actually very quiet bowel sounds *Routine Rectal Exam Rectal:: deferred *Routine Genitalia Exam Genitalia:: deferred *Routine Extremities Exam Extremities: Present full ROM, pulses intact and normal capillary refill Comments: The supports for her lymphedema which is chronic did not remove so did not move the knees through full range of motion. Has a long history of knee pain examination of last x-ray shows that the patella is quite roughened on the tendon insertion side but knee joint space seems to be preserved. Patient noted in history that her pain is so bad in her knees she is following up with that and has a future appointment. Has to use a walker to get around *Routine Skin Exam Skin: Present intact and wounds Comments: Left foot toes fifth small skin abrasion right great toe has a Band-Aid over it. A small ulcer area of abraded tissue is on the anterior pubis *Routine Neurological Exam Neurological: Present alert, oriented X3, CN II-XII intact, moving all extremities and normal speech Routine Psychiatric Exam Psychiatric: Present normal affect, normal thought process, cooperative, good insight and good judgment Comments: Patient is kind of stiff in the face sort of mechanical whenever she is talking H&P: Result Impressions 1. Hypoglycemia with 100 pound weight loss since the bariatric surgery. May require medication adjustments due to potential hypoglycemia 2. Chronic immobility situation related to her knee pain even with her weight loss requiring a walker to get around the house 3. Hypokalemia hypoglycemia 4. Multiple mental health issues that are being treated Assessment and Plan *Assessment and plan (1) Weakness generalized: Status: Acute Category: Medical Code(s): R53.1 - Weakness (2) Hypoglycemia: Status: Acute Category: Medical Code(s): E16.2 - Hypoglycemia, unspecified (3) Lymphedema of leg: Status: Acute Category: Medical Code(s): I89.0 - Lymphedema, not elsewhere classified (4) Osteoarthritis of knees, bilateral: Status: Acute Qualifiers: Osteoarthritis type: primary Qualified Code(s): M17.0 - Bilateral primary osteoarthritis of knee Category: Medical Code(s): M17.0 - Bilateral primary osteoarthritis of knee (5) Dehydration, mild: Status: Acute Category: Medical Code(s): E86.0 - Dehydration Plan Ms. Oconnor is a 53-year-old female with history of duodenal bypass and sleeve gastrectomy. Performed earlier this year in March. Presented with low blood sugar. Concern for recurrent hypoglycemia. Decision made to admit patient after discussion with ER physician requesting admission due to persistent hemoglobins less than 50 and needing dextrose drip. Endocrine consulted to evaluate in the morning. Problems addressed as follows: Type 2 diabetes Recurrent hypoglycemia - Concern for hypersecretion state. Will have endocrine see patient. C-peptide and insulin levels pending - Holding home glimepiride. - Not on any insulin therapy at this time - Documented significant weight loss of upwards of 100 pounds likely decreasing patient's insulin resistance Significant electrolyte disturbances with low potassium and low magnesium. Will replace per protocol. Potassium severely low at 2.3. Replacing both oral and IV. Repeat levels with CBC, CMP, magnesium ordered for the morning Mood disorder: Resume home Cymbalta 60 mg twice daily, citalopram 40 mg nightly, Elavil 50 mg nightly, Lamictal 100 mg daily Continue pantoprazole 40 mg nightly for GERD Continue trazodone 100 mg nightly for sleep Continue pravastatin 80 mg nightly for hyperlipidemia Initiate multivitamin Regular diet Full code Hemoglobin 40 mg SQ twice daily lymphedema chronic to both lower leg will make sure there is no other skin breakdown on areas there is 2 small places on her toes to look at the ice she is using to maintain her legs. And have her follow-up with her doctor for any issues
[2024-11-09 02:10] LABS: Troponin I < 0.01 ng/ml (0.00-0.034)
[2024-11-09 04:00] VITALS: BP 115/68; PULSE 70; PULSE 75; RESP 16; TEMP 36.8; O2SAT 100; BMI 41.8
[2024-11-09] MEDS: DEXTROSE 50% 50ML SYRINGE (CRASH CART) 25 ML IVP (06:09)
[2024-11-09 06:28] LABS: Hematocrit 30.4 % (37.0-47.0); Hemoglobin 10.0 g/dL (12.2-16.2); Immature Granulocytes % 0.3 %; Mean Corpuscular HGB Conc 32.9 g/dL (31.8-35.4); Mean Corpuscular Hemoglobin 29.2 pg (27.0-31.2); Mean Corpuscular Volume 88.9 fl (81-99); Nucleated Red Blood Cells % 0 %; Platelet Count 247 K/mm3 (142-424); Red Blood Count 3.42 M/mm3 (4.20-5.40); Red Cell Distribution Width-SD 55.2 fL; White Blood Count 3.9 K/mm3 (4.8-10.8)
[2024-11-09 06:33] LABS: Albumin Level 2.2 g/dl (3.5-5.0); Chloride 108 mmol/L (98-107); Sodium 140 mmol/L (136-145)
[2024-11-09 06:35] LABS: Blood Urea Nitrogen 18 mg/dl (7-17); Creatinine Clearance Estimated 45 mL/min (50-200); Creatinine,Serum 1.00 mg/dl (0.52-1.04); Estimated Glomerular Filt Rate 58 ml/min (>60); GFR (African American) 71 ML/MIN (>60)
[2024-11-09 06:36] LABS: Alanine Aminotransferase 33 U/L (12-78); Albumin/Globulin Ratio 0.9 (1.1-1.8); Alkaline Phosphatase 100 U/L (38-126); Anion Gap 7.5 mEq/L (5-15); Aspartate Amino Transferase 45 U/L (14-36); Bilirubin,Total 0.4 mg/dl (0.2-1.3); Calcium 7.5 mg/dl (8.4-10.2); Carbon Dioxide 27 mmol/L (22.0-30.0); Globulin 2.5 g/dL (1.3-3.2); Total Protein,Serum 4.7 g/dl (6.3-8.2)
[2024-11-09 06:37] LABS: POC Glucose,Bedside 94 (70-110)
[2024-11-09 06:37] LABS: Magnesium 1.9 mg/dl (1.6-2.3)
[2024-11-09 06:57] LABS: Potassium 2.5 mmoL/L (3.5-5.1)
[2024-11-09 06:58] LABS: Glucose 43 mg/dl (74-100)
[2024-11-09 08:00] VITALS: BP 109/64; PULSE 70; PULSE 77; RESP 16; TEMP 36.9; O2SAT 100
[2024-11-09] MEDS: POTASSIUM CHLORIDE 20MEQ TAB 40 MEQ PO ×4 (08:14→21:59)
[2024-11-09 08:31] LABS: Microscopic, Urine URINE MICROSCOPIC (MICROSCOPIC)
[2024-11-09] MEDS: DEXTROSE 5 % IN WATER 1,000 ML 125 ML IV (08:41)
[2024-11-09 08:50] LABS: POC Glucose,Bedside 57 (70-110)
--- NOTE | 2024-11-09 09:24 | HMH.PHAINT1 ---
Pharmacy Intervention Comments: MED LIST COMPARED TO FILL HX.
--- NOTE | 2024-11-09 09:43 | HMH.PTEV ---
Physical Therapy Evaluation Rehab PT IP Evaluation Start: 11/08/24 21:57 Freq: ONCE Status: Active Protocol: Document 11/09/24 09:34 GOPAL (Rec: 11/09/24 09:42 GOPAL [id number]) Subjective/History History History Per H&P: Ms. Oconnor has a very unique history. Short overweight woman, with a long history of mental health issues with depression, PTSD anxiety. Patient also noting for having hysterectomy but continuing to have her ovaries.. Patient had a gastric bypass surgery done where her weight was 316 pounds in January 2024 has decreased to 216 pounds as of this admission.. Patient has noted she was on diabetic medicines which she is still taking and has had 2 episodes of blood sugars being less than 50 while here in the hospital requiring some D50 having the patient eat. Noting the patient's history on several mental health patient is appropriate but very mechanical in her responses.. Also unsure of why the patient has suddenly started to have the spell may be simple as having a virus or the fact that she is lost to 100 pounds needs to have her medication decreased.. She is now 66% of her former self. Patient also noted for a long history of lymphedema wearing a mechanical type Unna boot for the lower extremities.. White count is not elevated but urine was not obtained in the ER we will get a urine to see if there was an undiagnosed urinary tract infection.. Patient had been noted in the past of having a lot of cellulitis and fungal infection to the skin in the skin folds these has decreased with her weight loss. There are still 2 areas on her feet with a slight bit of skin breakdown 1 on the right foot which is taped on the big toe and on the little toe on the left which is very insignificant also almost like a scratch from to the symphysis pubis but has a little bit of skin missing. But no signs of cellulitis or acute infection at this time. But with the patient's symptoms being as bad as are went ahead and admitted her and once here on the floor even though she was laying in bed and talking her blood sugar decreased immensely and had to give her to D50 to bring it back up have the nurse to give her some juice and then make her actually eat something so we would have some calories in her. Also noting we have put in dietary consult as the patient recently had esophageal strictures stretched because she was having problems swallowing. To make sure that she is on the right diet that she is able to chew and swallow the food that I have mechanically will transport to this time. Noting her mother is with her and is very doting upon her and they seem to get along quite well Even though the patient is lost to 100 pounds she still uses a walker to get around. She says she is able to make about 3 rounds in the house on her walker independently. Subjective Subjective PLOF: IND with use of RW. Does not drive (mother drives pt to appointments). 4 reported falls in the past few months. HOME: Live alone in a single-story house with 1 JOAN. ASSIST: Pt reports her mother is able to stay with her if needed. New diagnosis of No cancer in past 12 months? [facility] How much help from another person do you currently need... Turning from your None back to your side while in a flat bed without using bedrails? Moving from lying on None back to sitting on the side of a flat bed without using bedrails? Moving to and from a None bed to a chair ( including a wheelchair)? Standing up from a A little chair using your arms? (e.g., wheelchair, bedside chair) Walking in hospital A little room? Climbing 3-5 steps A little with a railing? Mobility Score 21 Mobility Level [facility] Mobility 6 Walk 10 steps or more Mobility Calculator Rehab PT IP Eval Objective Appearance Patient Behavior Appropriate,Cooperative Patient Orientation Person,Situation Difficulty following none instructions Speech Pattern Clear Ambulation Patient Able to Yes Ambulate Ambulation Observation IP General Gait Wide Based Gait Pattern Observation Ambulation Distance 30 (feet) Ambulation Assistive Rolling Walker Device Ambulation Ability Contact Guard/Hand Hold Balance Ability to Arise Able, uses arms to help Sitting Balance Steady, safe Standing Balance Steady, wide stance Dynamic Sitting Good Balance Ability Dynamic Standing Fair Balance Ability Rehab PT IP prob,goals,plan Problems Date of Evaluation: 11/09/24 PT IP Problems Bed Mobility,Transfers,Gait,Balance,Self care,Safety Rehab Potential Rehab Potential Good Plan PT Intervention Plan Bed Mobility,Transfers,Gait,Balance,Self care,Safety, Therapeutic Exercise Other Intervention 1-2 times Plan PT Plan Frequency Daily Duration LOS Discharge Goals Bed Transfer Ability Independent Sit to Stand Chair Independent Transfer Ability Ambulation Distance 50 (feet) Discharge Plan PT Discharge Plan Pt presents below baseline in functional mobility and would benefit from skilled acute care PT while at [facility] to address deficits and prevent further functional decline. Pt is most appropriate to d/c home with assistance and supervision provided from mother d/t fall risk. PT recommending either HH or OP PT to address strength and endurance deficits. Eval Complexity Eval Charge Codes 64226 - Moderate Complexity PHYSICIAN CERTIFICATION: I certify the specified therapy services for Yane Oconnor are required, authorized, and reviewed every 30 days.
[2024-11-09 09:58] LABS: Color,Urine YELLOW (Yellow); Glucose,Urine (UA) Negative (Negative); Ketones,Urine TRACE (Negative); Leukocyte Esterase,Urine 1+ (Negative); PH,Urine 6.0 (5.0-8.5); Protein,Urine Negative (Negative); Specific Gravity, Urine 1.020 (1.005-1.030); Urobilinogen,Urine 0.2 EU/dl (0.2)
[2024-11-09 10:00] LABS: Bilirubin,Urine 1+ (Negative)
--- NOTE | 2024-11-09 10:14 | SW/DCPLANNER ---
PT has recommended outpatient PT services at time of discharge. Patient stated that she is currently established w/ outpatient rehab services for lymphedema. Patient prefers to return to [facility] for outpatient PT services at time of discharge. I will make sure patient has an outpatient appointment for [facility] PT at time of discharge. Discharge date is unknown at this time.
[2024-11-09 10:38] LABS: Bacteria,Urine Trace /lpf; WBC,Urine 50-100 #/hpf (0-3)
--- OUTSIDE RECORDS SUMMARY | 2024-11-09 10:52 | XMS_ITS | Encounter Summary ---
Author Organization [employer] ([place], [place], [place], [place]) Address [address] [place] [address] Care Team Providers Care Roll Operator Name Role Phone Nelliekarissa Reina Nilsa TAMEZ Primary Care Provider [phone] [phone] Encounter Details Date Type Department Care Team (Late st Contact Info) Description 12/02/2019 Transcribed Document [facility] Family Medicine [address] [place] [address] ProviderVeronica MD [address] [place] [address] Social History Tobacco Use [...] Source : Stated Height Entry Format : Taylor Height, Feet : 5 ft(Converted to: 152 cm, 60 Inch) Height, Inches : 0 Inch(Converted to: 0 ft 0 Inch, 0.00 cm) Clinical Height : 152.4 cm Weight Source : Standing scale Weight Entry Format : Taylor Clinical Dosing Weight : 127.73 kg Weight, Pounds : 281 lb Body Surface Area (BSA) : 2.16 m2 Body Mass Index : 55 kg/m2 (>HHI) [place] Body Weight : 45 kg CLINTON CASTAÑEDA [...] CLINTON CASTAÑEDA RN - 12/02/2019 12:59 EDT [place] Suicide Severity Rating Scale (C-SSRS) CSSRS Past [...] #2 Relationship : . Primary Language : Frisian Preferred Communication Mode : Verbal Communication Barrier : None Keno Writer/Runner Needed : CLINTON Vaca RN - 12/02/2019 [...] Scale Risk Level : 25-45 Medium Risk Waldron Fall Interventions : Adequate lighting, Bed in [...] the text rendition version of the form. [place] Coma [place] Best Motor Response : Obey commands [place] Best Verbal Response : Oriented Neal Eye Opening Response : Spontaneous Neal Coma Score : 15 CLINTON CASTAÑEDA, RN - 12/02/2019 12:59 EDT Electronically signed by [facility] Conversion Manager Of Organizational Development Cerner at 07/09/2022 12:14 PM CDT documented in this encounter Plan of Treatment Not on file documented as of this encounter Visit Diagnoses Not on filedocumented in this encounter Care Teams Roll Operator Relationship Specialty Start Date End Date Reina Olmedo, PHARMACY SERVICES DIRECTOR [address] [place] [address] PCP - General Nurse Practitioner 11/14/22 10/01/23 documented as of this encounter
--- OUTSIDE RECORDS SUMMARY | 2024-11-09 10:52 | XMS_ITS | Encounter Summary ---
Author Organization [employer] ([place], [place], [place], [place]) Address [address] [place] [address] Care Team Providers Care Ged Instructor Name Role Phone NellieReina hancock Nilsa TAMEZ Primary Care Provider [phone] [phone] Encounter Details Date Type Department Care Team (Late st Contact Info) Description 12/02/2019 Transcribed Document [facility] Family Medicine [address] [place] [address] ProviderVeronica MD [address] [place] [address] Social History Tobacco Use Types [...] Veronica ProviderMD - 12/02/2019 4:45 PM CDT [place] [id number] YANE REBOLLEDO :1970 Visit Time:12/02/2019 What to [...] activities are safe for you. ??? Take uctz-aqv-jfqswob and prescription medicines only as told by [...] Reviewed: 10/24/2017 Elsevier Patient Education ?? 2020 BabyWatch Inc. Myomectomy, Care After This sheet gives [...] these instructions at home: Medicines ??? Take mlmt-geo-dttfzek and prescription medicines only as told by [...] and water are not available, use hand health care facility administrator. ? Change your dressing as told by [...] urine clear or pale yellow. ? Take hvmr-gal-quffvrh or prescription medicines. ? Eat foods that [...] 07/31/2011 Document Revised: 02/20/2018 Document Reviewed: 04/10/2017 BabyWatch Patient Education ?? 2020 InEnTec. Hysteroscopy, Care After This sheet gives you [...] taking prescription pain medicines. Medicines ??? Take djoq-cnd-dzdfiai and prescription medicines only as told by [...] urine clear or pale yellow. ? Take fxis-irg-rzuikhf or prescription medicines. ? Eat foods that [...] 12/29/2013 Document Revised: 02/20/2018 Document Reviewed: 04/08/2017 BabyWatch Patient Education ?? 2020 InEnTec. acetaminophen and oxycodone (a SEET a MIN [...] may report side effects to FDA at 3-062-SJW-5530. What other drugs will affect acetaminophen and [...] affect acetaminophen and oxycodone, including prescription and jmsd-uzt-kddbymj medicines, vitamins, and herbal products. Not all [...] to ensure that the information provided by BasharJobs. ('Multum') is accurate, up-to-date, and complete, but no guarantee is made to that effect. Drug information contained herein may be time sensitive. Blogic information has been compiled for use by healthcare practitioners and consumers in the [place] and therefore Blogic does not warrant that uses outside of the [place] are appropriate, unless specifically indicated otherwise. Blogic's drug information does not endorse drugs, diagnose patients or recommend therapy. 2d2cs drug information is an informational resource designed [...] with your doctor, nurse or pharmacist. Copyright 6255-4712 [facility]. Version: .. Revision Date: 04/14/2019. ibuprofen (EYE bue PROE fen) Advil, Genpril, IBU, Midol IB, Motrin IB, Proprinal, Smart Sense Children's Ibuprofen What is the most important information I should know about ibuprofen? Ibuprofen can increase your risk of fatal heart attack or stroke, especially if you use it industrial refrigeration mechanic or take high doses, or if you [...] or stroke, especially if you use it senior living or take high doses, or if you [...] may report side effects to FDA at 4-567-WGY-7742. What other drugs will affect ibuprofen? Ask [...] may interact with ibuprofen, including prescription and gqne-nzj-bvnymga medicines, vitamins, and herbal products. Not all [...] to ensure that the information provided by BasharJobs. ('Multum') is accurate, up-to-date, and complete, but no guarantee is made to that effect. Drug information contained herein may be time sensitive. Blogic information has been compiled for use by healthcare practitioners and consumers in the [place] and therefore Blogic does not warrant that uses outside of the [place] are appropriate, unless specifically indicated otherwise. 2d2cs drug information does not endorse drugs, diagnose patients or recommend therapy. [employer]ants drug information is an informational resource designed [...] effective or appropriate for any given patient. Blogic does not assume any responsibility for any aspect of healthcare administered with the aid of information Blogic provides. The information contained herein is not intended to cover all possible uses, directions, precautions, warnings, drug interactions, allergic reactions, or adverse effects. If you have questions about the drugs you are taking, check with your doctor, nurse or pharmacist. Copyright 9287-7683 BasharJobs. Version: 21.. Revision Date: 04/05/2019. Emergency Awareness [...] Assistance with quitting is available by contacting 1-398-ADSZ-NOW. This is a free resource providing counseling, [...] was given the opportunity to ask questions. Patient/Laboratory Technician Name: Patient/Laboratory Technician Signature: Relationship to Patient: Clinician/Hospital Laboratory Technician Signature: Date: Electronically signed by Interface, [facility] Conversion Grooving Machine Operator Cerner at 07/09/2022 12:14 PM CDT documented in this encounter Plan of Treatment Not on file documented as of this encounter Visit Diagnoses Not on filedocumented in this encounter Care Teams Ged Instructor Relationship Specialty Start Date End Date , Reina Ash, JAVA J2EE TECHNICAL LEAD [address] [place] [address] PCP - General Nurse Practitioner 11/14/22 10/01/23 documented as of this encounter
--- OUTSIDE RECORDS SUMMARY | 2024-11-09 10:52 | XMS_ITS | Encounter Summary ---
Author Organization [employer] ([place], [place], [place], [place]) Address [address] [place] [address] Care Team Providers Care Cleaning Validation Consultant Name Role Phone Reina Olmedo DASHAWN Primary Care Provider [phone] [phone] Encounter Details Date Type Department Care Team (Late st Contact Info) Description 07/27/2020 Transcribed Document [facility] Family Medicine [address] [place] [address] ProviderVeronica MD [address] [place] [address] Social History Tobacco Use Types [...] 1970 Associated Diagnoses: None Author: FABIENNE LU MD-[facility] Basic Information Direct Care Worker: Rosa Jean-Baptiste MD Chief Complaint 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 History of Present Illness [...] Refill(s) Problem list: All Problems Arthritis / 2739388 / Confirmed Diabetes / 286512614 / Confirmed History of obstructive sleep apnea / 03837789 / Confirmed Hyperlipidemia / 35431570 / Confirmed Hypertension / 5365384969 / Confirmed Hypothyroid / 29566968 / Confirmed Anxiety and depression / 457501477 / Confirmed Histories No education data available. 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 PLAN; Left Heart Catheterization w/ possibility of PCI via right radial artery. Risks and Benefits discussed. Patient wishes to proceed. Minimize NSAIDS. IVF hydration. Hold Metformin 48 hr post cath. Discussed low carb diet (100 gram/d), portion control (30% less every dinner), Na restriction, referral to can intake worker. Follow-up w/ ROSIO MD. Encourage pt to discuss SGLT2i (Involkana, Farxiga)/GLP1a w/ primary provider. documented in this encounter Plan of Treatment Not on file documented as of this encounter Visit Diagnoses Not on filedocumented in this encounter Care Teams Cleaning Validation Consultant Relationship Specialty Start Date End Date Reina Olmedo, FIELD SALES ENGINEER [address] [place] [address] PCP - General Nurse Practitioner 11/14/22 10/01/23 documented as of this encounter
--- OUTSIDE RECORDS SUMMARY | 2024-11-09 10:52 | XMS_ITS | Encounter Summary ---
Author Organization [employer] ([place], [place], [place], [place]) Address [address] [place] [address] Care Team Providers Care Society Reporter Name Role Phone Unavailable Primary Care Provider Unavailabl e Reason for Visit * Reason Comments Medication Refill Encounter Details Date Type Department Care Team (Late st Contact Info) Description 02/03/2024 Refill [facility] Primary Care [address] [address] Reina Olmedo, PIPE FITTER APPRENTICE [address] [place] [address] Social History Tobacco Use Types [...] Date Joshua rded Speak language other than Bahamian at home Not on file 04/09/2023 Want [...]
--- OUTSIDE RECORDS SUMMARY | 2024-11-09 10:53 | XMS_ITS | Encounter Summary ---
Author Organization [employer] ([place], [place], [place], [place]) Address [address] [place] [address] Care Team Providers Care Bander And Cellophaner Machine Name Role Phone Reina Olmedo APRN Primary Care Provider [phone] Encounter Details Date Type Department Care Team (Late st Contact Info) Description 08/03/2020 Transcribed Document [facility] Family Medicine [address] [place] [address] ProviderVeronica MD [address] [place] [address] Social History Tobacco Use Types [...] YANE REBOLLEDO/Sex: 1970 Female Med Rec #: [id number] Physician: YOU HAWTHORNE MD-OBG Financial #: [id number] Pt. Type: O [facility] Admit/Disch: 08/03/20 03:59:00 - Institution: [facility] Main OR PACU Case Times Entry 1 In PACU I 08/03/20 11:29:00 Ready for PACU 08/03/20 12:34:00 Discharge Discharge from PACU 08/03/20 12:34:00 I Last Modified By: REINA SANCHEZ, AOK-AN-QPPI-OP CAR 08/03/20 12:34:23 [facility] Main OR PACU Case Times Audit 08/03/20 12:34:52 Airline Pilot: [id number] Modifier: [id number] <+> 1 In PACU I Finalized By: REINA SANCHEZ, DOR-SP-CTUJ-OP CAR Document Signatures Signed By: REINA SANCHEZ, IZJ-AM-OVNQ-OP CAR 08/03/20 12:34 Electronically signed by Tayler Carnes Conversion Stitch Bonding Machine Tender Cerner at 07/09/2022 12:42 PM CDT documented in this encounter Plan of Treatment Not on file documented as of this encounter Visit Diagnoses Not on filedocumented in this encounter Care Teams Bander And Cellophaner Machine Relationship Specialty Start Date End Date Reina Olmedo, FUR STORAGE CLERK [address] [place] [address] PCP - General Nurse Practitioner 11/14/22 10/01/23 documented as of this encounter
--- OUTSIDE RECORDS SUMMARY | 2024-11-09 10:53 | XMS_ITS | Encounter Summary ---
Author Organization [employer] ([place], [place], [place], [place]) Address [address] [place] [address] Care Team Providers Care Hand Scraper Name Role Phone NelileReina hancock Nilsa TAMEZ Primary Care Provider [phone] [phone] Encounter Details Date Type Department Care Team (Late st Contact Info) Description 03/13/2021 Transcribed Document [facility] [place] [address] [place] [address] ProviderVeronica MD [address] [place] [address] Social History Tobacco Use Types [...] - Veronica ProviderMD - 03/13/2021 3:41 PM METAL OR WOOD BLOCKER Patient Education Materials Follows: ESOPHAGOGASTRODUODENOSCOPY Care After [...] these instructions at home: Medicines ??? Take fczx-uch-gzcuysi and prescription medicines only as told by [...] provider. Document Revised: 07/28/2018 Document Reviewed: 07/28/2018 [employer] Patient Education ? 2020 Mobile Automation. documented in this encounter Plan of Treatment Not on file documented as of this encounter Visit Diagnoses Not on filedocumented in this encounter Care Teams Hand Scraper Relationship Specialty Start Date End Date Reina Olmedo, MENDER HAND [address] [place] [address] PCP - General Nurse Practitioner 11/14/22 10/01/23 documented as of this encounter
--- OUTSIDE RECORDS SUMMARY | 2024-11-09 10:53 | XMS_ITS | Encounter Summary ---
Author Organization [employer] ([place], [place], [place], [place]) Address [address] [place] [address] Care Team Providers Care Federal Law Clerk Name Role Phone Reina Olmedo Nilsa TAMEZ Primary Care Provider [phone] [phone] Encounter Details Date Type Department Care Team (Late st Contact Info) Description 03/13/2021 Transcribed Document [facility] Family Medicine [address] [place] [address] ProviderVeronica MD [address] [place] [address] Social History Tobacco Use Types [...] - Historical ProviderMD - 03/13/2021 3:43 PM OTA [address] [address] AMAURYYANE :1970 Visit Time:03/13/2021 What to do next Follow-Up Appointments Follow Up with CARINE AMATO MD-ASUNCION When Comments Please call the office if you have any questions or concerns. Where: [address] [place] [address]- Medications What How Much When Instructions Next Dose aspirin (aspirin 81 mg oral delayed release tablet) 1 Tablet(s) Oral Every Day azelastine nasal (azelastine 137 mcg/ inh (0.1%) nasal spray) 2 Boyd(s) Nasal Two Times A Day citalopram (citalopram 10 mg oral tablet) 1 Tablet(s) Oral At Bedtime DULoxetine 60 Milligram(s) Oral Two Times A Day ergocalciferol (ergocalciferol 50,000 intl units (1.25 mg) oral capsule) 1 Capsule(s) Oral Weekly ergocalciferol (Vitamin D2 1.25 mg (50,000 intl units) oral capsule) Oral Weekly fluticasone nasal (fluticasone 50 mcg/ inh nasal spray) 1 Boyd(s) Nasal Every Day glimepiride 2 Milligram(s) Oral [...] these instructions at home: Medicines ??? Take khti-bgx-atejefd and prescription medicines only as told by [...] provider. Document Revised: 07/28/2018 Document Reviewed: 07/28/2018 [employer] Patient Education ?? 2020 Omnidrive. ESOPHAGOGASTRODUODENOSCOPY Care After Read the instructions outlined [...] Assistance with quitting is available by contacting 4-393-XRWO-NOW. This is a free resource providing counseling, [...] was given the opportunity to ask questions. Patient/Assistant Professor Of Art Name: Patient/Assistant Professor Of Art Signature: Relationship to Patient: Clinician/Hospital Assistant Professor Of Art Signature: Date: Electronically signed by Tayler Carnes Conversion Medical Receptionist Assistant Ilaner at 07/09/2022 12:32 PM CDT documented in this encounter Plan of Treatment Not on file documented as of this encounter Visit Diagnoses Not on filedocumented in this encounter Care Teams Federal Law Clerk Relationship Specialty Start Date End Date Reina, SALVAGE MEND WORKER [address] [place] [address] PCP - General Nurse Practitioner 11/14/22 10/01/23 documented as of this encounter
--- OUTSIDE RECORDS SUMMARY | 2024-11-09 10:53 | XMS_ITS | Encounter Summary ---
Author Organization [employer] ([place], [place], [place], [place]) Address [address] [place] [address] Care Team Providers Care Rug Drying Machine Operator Name Role Phone Reina Olmedo DASHAWN Primary Care Provider [phone] Encounter Details Date Type Department Care Team (Late st Contact Info) Description 07/27/2020 Transcribed Document [facility] Family Medicine [address] [place] [address] ProviderVeronica MD [address] [place] [address] Social History Tobacco Use Types [...] Veronica ProviderMD - 07/27/2020 2:50 PM CDT [facility] [place] [address] YANE REBOLLEDO :1970 Visit Time:07/27/2020 Your Visit Summary Your Care Team Admitting Physician - FABIENNE LU MD-CAR Attending Physician - FABIENNE LU MD-CAR Primary Care Physician - WILL BRIDGES, -[facility] Referring Physician - FABIENNE LU MD-CAR [...] weeks Comments Follow-up as instructed Where: [address] [facility] [address] [place] [address]- Medications What How Much When Instructions Next [...] to thoroughly wash your hands, use hand miter grinder operator. While handwashing is best, hand miter grinder operator helps to reduce the spread of germs when you are out and about. Have hand miter grinder operator in several locations so you can always [...] keep people from also getting sick. Don???t [place] It! Sneezing this time of year is [...] for every person. A diet and nutrition faculty member (registered dietitian) can help you make a [...] of carbohydrates: ? hamburger bun or ?? Romanian muffin. ? oz (15 mL) syrup. ? [...] foods that contain carbohydrates: ??? Rice. ??? Yantis. ??? Milk. ??? Strawberries. 2. Calculate how [...] your diabetes. ??? A diet and nutrition faculty member (registered dietitian) can help you make a meal plan and calculate how many carbohydrates you should have at each meal and snack. This information is not intended to replace advice given to you by your health care provider. Make sure you discuss any questions you have with your health care provider. Document Revised: 10/02/2017 Document Reviewed: 08/21/2016 [employer]ird Patient Education ?? 2020 SportyBird Inc. Diabetes Mellitus and Nutrition, Adult When [...] you work with a diet and nutrition faculty member (dietitian) to make a meal plan that [...] provider. ??? Work with a counselor or nursing educator to identify strategies to manage stress and any emotional and social challenges. Questions to ask a health care provider ??? Do I need to meet with a nursing educator? Do I need to meet with a dietitian? What number can I call if I have questions? When are the best times to check my blood glucose? Where to find more information: ??? [place] Diabetes Association: diabetes.org ??? Academy of Nutrition and Dietetics: www.eatright.org ??? National [place] of Diabetes and Digestive and Kidney Diseases (NIH): www.niddk.nih.gov Summary ??? A healthy meal plan will help you control your blood glucose and maintain a healthy lifestyle. ??? Working with a diet and nutrition faculty member (dietitian) can help you make a meal [...] provider. Document Revised: 02/20/2018 Document Reviewed: 04/14/2017 [employer]yBird Patient Education ?? 2020 [employer]ird Inc. Coronary Angiogram A coronary angiogram is [...] including vitamins, herbs, eye drops, creams, and dbke-adk-henitnj medicines. ??? Any problems you or family [...] do not normally take it. ??? Taking ylho-yss-upvviez medicines, vitamins, herbs, and supplements. General instructions [...] provider. Document Revised: 09/30/2019 Document Reviewed: 09/30/2019 [employer]ird Patient Education ?? 2020 [employer]ird Inc. Moderate Conscious Sedation, Adult, Care After [...] you are awake and alert. ??? Take zblu-ptu-ulrdsaz and prescription medicines only as told by [...] provider. Document Revised: 02/20/2018 Document Reviewed: 06/29/2016 [employer] Patient Education ?? 2020 [employer]ale. Radial Site Care This sheet gives you [...] these instructions at home: Medicines ??? Take ajjv-pyz-aihmjfw and prescription medicines only as told by your health care provider. Insertion site care ??? Follow instructions from your health care provider about how to take care of your insertion site. Make sure you: ? Wash your hands with soap and water before you change your bandage (dressing). If soap and water are not available, use hand miter grinder operator. ? Change your dressing as told [...] provider. Document Revised: 04/15/2018 Document Reviewed: 04/15/2018 [employer]ird Patient Education ?? 2020 [employer]ird Inc. Transradial Angiogram A transradial angiogram is [...] including vitamins, herbs, eye drops, creams, and szgr-yjt-vslegjp medicines. ??? Any problems you or family [...] tells you to take them. ??? Taking jdjl-iuk-tebgggr medicines, vitamins, herbs, and supplements. Exams and [...] provider. Document Revised: 02/01/2019 Document Reviewed: 02/01/2019 [employer]ird Patient Education ?? 2020 [employer]ird Inc. Emergency Awareness and Preventative Care STROKE [...] Assistance with quitting is available by contacting 0-414-UUXYNOW. This is a free resource providing counseling, [...] was given the opportunity to ask questions. Patient/Graduate Intern Name: Patient/Graduate Intern Signature: Relationship to Patient: Clinician/Hospital Graduate Intern Signature: Date: Electronically signed by Tayler Carnes Conversion Director Of Ancillary Services Cerner at 07/09/2022 12:25 PM CDT documented in this encounter Plan of Treatment Not on file documented as of this encounter Visit Diagnoses Not on filedocumented in this encounter Care Teams Rug Drying Machine Operator Relationship Specialty Start Date End Date Reina, PAPER GUILLOTINE OPERATOR [address] [place] [address] PCP - General Nurse Practitioner 11/14/22 10/01/23 documented as of this encounter
--- OUTSIDE RECORDS SUMMARY | 2024-11-09 10:53 | XMS_ITS | Encounter Summary ---
Author Organization [employer] ([place], [place], [place], [place]) Address [address] [place] [address] Care Team Providers Care Early Childhood Specialist Name Role Phone Reina Olmedo APRN Primary Care Provider +1 [phone] Encounter Details Date Type Department Care Team (Late st Contact Info) Description 12/02/2019 Transcribed Document [facility] Family Medicine [address] [place] [address] ProviderVeronica MD [address] [place] [address] Social History Tobacco Use Types [...] ANGÉLICA REBOLLEDO/Sex: 1970 Female Med Rec #: [id number] Physician: YOU HAWTHORNE MD-OBG Financial #: [id number] Pt. Type: O Room/Bed: [facility]/ Admit/Disch: 12/02/19 11:24:00 - Institution: [facility] IntraOp Case Attendance Entry 1 Entry 2 Entry 3 Case Attendee YOU HAWTHORNE Holliday, Stewart R, RN ANTONIO CABRERA, LIZZ BECERRA-OBG Role Performed Surgeon/Proceduralist, Tool And Die Maker, First COMPUTER ENGINEERING PROFESSOR/Nurse Cap And Stud Machine Operator First Time In 12/02/19 15:17:00 12/02/19 15:17:00 12/02/19 15:17:00 Time Out 12/02/19 16:14:00 12/02/19 16:14:00 12/02/19 15:46:00 Procedure Myomectomy Hysteroscopic Myomectomy Hysteroscopic Myomectomy Hysteroscopic Other Attendee Superficial Wound Closed By: Last Modified By: Foster Avilez, RN Foster Avilez, RN Foster Avilez, JASSON 12/02/19 16:14:35 12/02/19 16:14:35 12/02/19 16:14:35 Entry 4 Entry 5 Case Attendee ADRIÁN GOMEZ ST BROWNING, JANICE R, TOOL DESIGNER APPRENTICE-ANS Role Performed Scrub, First COMPUTER ENGINEERING PROFESSOR/Nurse Cap And Stud Machine Operator Time In 12/02/19 15:17:00 12/02/19 15:46:00 Time Out 12/02/19 16:14:00 12/02/19 16:14:00 Procedure Myomectomy Hysteroscopic Myomectomy Hysteroscopic Other Attendee Superficial Wound Closed By: Last Modified By: Foster Avilez RN Holliday, Stewart R, JASSON 12/02/19 16:14:35 12/02/19 16:14:35 E IntraOp Case Attendance Audit 12/02/19 16:14:35 Oncology Nurse: JERONIMO Modifier: [email or web address] 1 <+> Time Out 1 <*> Procedure Myomectomy Hysteroscopic 2 <+> Time Out 2 <*> Procedure Myomectomy Hysteroscopic 3 <*> Procedure Myomectomy Hysteroscopic 4 <+> Time Out 4 <*> Procedure Myomectomy Hysteroscopic 5 <+> Time Out 5 <*> Procedure Myomectomy Hysteroscopic 12/02/19 15:49:20 Oncology Nurse: JERONIMO Modifier: [email or web address] 1 <+> Time In 1 <*> Procedure Myomectomy Hysteroscopic 2 <+> Time In 2 <*> Procedure Myomectomy Hysteroscopic 3 <+> Time In 3 <+> Time Out 3 <*> Procedure Myomectomy Hysteroscopic 4 <+> Time In 4 <*> Procedure Myomectomy Hysteroscopic <+> 5 Case Attendee <+> 5 Role Performed <+> 5 Time In <+> 5 Procedure 12/02/19 15:11:56 Oncology Nurse: [email or web address] Modifier: [email or web address] <+> Case Attendee [...] [facility] Case Times Audit 12/02/19 16:14:34 Oncology Nurse: WALTERIDSR Modifier: [email or web address] <+> 1 Out Room Time <+> 1 Stop Time 12/02/19 16:04:01 Oncology Nurse: WALTERIDSR Modifier: [email or web address] <+> 1 Stop Time 12/02/19 15:39:00 Oncology Nurse: WALTERIDSR Modifier: HOLLIDSR <+> 1 Start Time [...] IntraOp Departure from OR Audit 12/02/19 15:11:36 Oncology Nurse: JERONIMO Modifier: JERONIMO <+> 1 Transfer to <+> 1 Handoff Method [facility] IntraOp Fire Risk Assessment Entry 1 Fire Info Surgical Site or 0- No Incision Above the Xyphoid Open O2 Source 0- No (Mask or Cannula) Available Ignition 0- No (ESU, Laser, Light Source) Fire Risk 0 Assessment Score Fire Score Fire Risk Yes Assessment Complete Fire Risk Foster Avilez chinese language professor Verified By Fire Risk 12/02/19 15:09:00 Assessment Verified Date/Time Fire Risk Last Modified By: Foster Avilez RN 12/02/19 15:09:44 [facility] Intra[facility] General Case Bioinformatician 1 Case Information OR OR 07 [facility] Case Level 1 Room Verified Yes Wound Class II - Clean-Contaminated Specialty SN Gynecology Anesthesia Type General ASA Class 3 Diagnosis Preop Diagnosis AUB Postop Diagnosis refer to MD notes Last Modified By: Foster Avilez RN 12/02/19 15:28:51 [facility] Intra[facility] General Case Data Audit 12/02/19 15:28:51 Oncology Nurse: JERONIMO Modifier: [email or web address] <+> 1 Room Verified 12/02/19 15:28:47 Oncology Nurse: JERONIMO Modifier: WALTERIDSR <+> 1 ASA Class [...] Entry 1 Medication/Irrigant Monsels 500ml solution - [id number] Dose Administered By YOU HAWTHORNE MD-OBG Procedure Irrigation Last Modified By: Fsoter Avilez RN 12/02/19 16:03:52 [facility] IntraOp Patient [...] Intra Op Sign Out Audit 12/02/19 16:14:49 Oncology Nurse: STEFANYR Modifier: HOLLIDSR <+> 1 RN Sign [...] [facility] IntraOp Surgical Procedures Audit 12/02/19 16:04:02 Oncology Nurse: JERONIMO Modifier: [email or web address] <+> 1 Stop S[facility] [...] RN 12/02/19 16:14 Electronically signed by Deyvi [facility] Conversion Family And Marriage Counsellor Cerner at 07/09/2022 12:39 PM CDT documented in this encounter Plan of Treatment Not on file documented as of this encounter Visit Diagnoses Not on filedocumented in this encounter Care Teams Early Childhood Specialist Relationship Specialty Start Date End Date Reina Olmedo, TOOL DESIGNER APPRENTICE [address] [place] [address] PCP - General Nurse Practitioner 11/14/22 10/01/23 documented as of this encounter
--- OUTSIDE RECORDS SUMMARY | 2024-11-09 10:53 | XMS_ITS | Encounter Summary ---
Author Organization [employer] ([place], [place], [place], [place]) Address [address] [place] [address] Care Team Providers Care Oral Therapist Name Role Phone Nelliekarissa Reina Ash APRN Primary Care Provider [phone] [phone] Encounter Details Date Type Department Care Team (Late st Contact Info) Description 07/26/2020 Transcribed Document [facility] [place] [address] [place] [address] ProviderVeronica MD [address] [place] [address] Social History Tobacco Use Types [...] Source : Stated Height Entry Format : [place] Height, Feet : 5 ft(Converted to: 152 cm, 60 Inch) Height, Inches : 0 Inch(Converted to: 0 ft 0 Inch, 0.00 cm) Clinical Height : 152.4 cm Weight Source : Standing scale Weight Entry Format : [place] Clinical Dosing Weight : 127.73 kg Weight, Pounds : 281 lb Body Surface Area (BSA) : 2.16 m2 Body Mass Index : 55 kg/m2 (>HHI) [place] Body Weight : 45 kg RENZO MORRELL [...] RENZO MORRELL RN - 07/26/2020 13:15 EDT [place] Suicide Severity Rating Scale (C-SSRS) CSSRS Past [...] #2 Relationship : - Primary Language : Slovenian Preferred Communication Mode : Verbal Communication Barrier : None Hand Outside Cutter Needed : No RENZO MORRELL RN - [...] on filedocumented in this encounter Care Teams Oral Therapist Relationship Specialty Start Date End Date Reina Olmedo, BLEACH PACKER [address] [place] [address] PCP - General Nurse Practitioner 11/14/22 10/01/23 documented as of this encounter
--- OUTSIDE RECORDS SUMMARY | 2024-11-09 10:53 | XMS_ITS | Encounter Summary ---
Author Organization [employer] ([place], [place], [place], [place]) Address [address] [place] [address] Care Team Providers Care Chemistry Intern Name Role Phone Nelliekarissa Reina Nilsa TAMEZ Primary Care Provider [phone] [phone] Encounter Details Date Type Department Care Team (Late st Contact Info) Description 08/16/2020 Transcribed Document [facility] [place] Family Medicine [address] [place] [address] ProviderVeronica MD [address] [place] [address] Social History Tobacco Use Types [...] up at 8 or 8:30 a.m. Her [place] score is 7. She notes snoring continuously [...] ahead and start CPAP in the interim. /[id number] Melinda Lopez MD PAC/AQ / PAC / MODL /[id number] CC: DASHAWN Castanon MD Electronically signed by [facility], [facility] Conversion Cougar Hunter Cerner at 07/09/2022 12:13 PM CDT documented in this encounter Plan of Treatment Not on file documented as of this encounter Visit Diagnoses Not on filedocumented in this encounter Care Teams Chemistry Intern Relationship Specialty Start Date End Date Reina Olmedo APRN [address] [place] [address] PCP - General Nurse Practitioner 11/14/22 10/01/23 documented as of this encounter
--- OUTSIDE RECORDS SUMMARY | 2024-11-09 10:53 | XMS_ITS | Encounter Summary ---
Author Organization [employer] ([place], [place], [place], [place]) Address [address] [place] [address] Care Team Providers Care Print Binding And Finishing Worker Name Role Phone Reina Olmedo DASHAWN Primary Care Provider [phone] [phone] Encounter Details Date Type Department Care Team (Late st Contact Info) Description 08/04/[address] [facility] Family Medicine [address] [place] [address] ProviderVeronica MD [address] [place] [address] Social History Tobacco Use Types [...] EDT Performed On: 08/04/2020 11:17 EDT by ARNLOD HOYT SW Final Discharge Planning Discharge Arrangements : Patient Post-Acute Information Patient Name: YANE REBOLLEDO Gender: Female : [birth year] Age: 49 Years No Post-Acute Placement(s) Listed No Post-Acute Service(s) Listed No [place] Referral(s) Listed Discharge To Care Management : Home/Residential/Retirement or Self Care -01 ARNOLD HOYT SW - 08/04/2020 11:17 EDT Final Narrative Note Final Narrative Note : Pt to dc home with family transport, and f/u outpatient with Dr. Rodrigues. No dc needs noted. ARNOLD HOYT SW - 08/04/2020 11:17 EDT Electronically signed by Deyvi [facility] Conversion Voltage Inspector Cerner at 07/09/2022 12:16 PM CDT documented in this encounter Plan of Treatment Not on file documented as of this encounter Visit Diagnoses Not on filedocumented in this encounter Care Teams Print Binding And Finishing Worker Relationship Specialty Start Date End Date Riena, RISK REDUCTION COUNSELOR [address] [place] [address] PCP - General Nurse Practitioner 11/14/22 10/01/23 documented as of this encounter
--- OUTSIDE RECORDS SUMMARY | 2024-11-09 10:53 | XMS_ITS | Encounter Summary ---
Author Organization [employer] ([place], [place], [place], [place]) Address [address] [place] [address] Care Team Providers Care Weatherization Administrator Name Role Phone Reina Olmedo DASHAWN Primary Care Provider +1 [phone] Encounter Details Date Type Department Care Team (Late st Contact Info) Description 03/13/2021 Transcribed Document [facility] [place] Family Medicine [address] [place] [address] ProviderVeronica MD [address] [place] [address] Social History Tobacco Use Types [...] - Historical ProviderMD - 03/13/2021 3:30 PM COMPUTER INSTRUCTOR JAZMYN Mary IntraOp Summary Primary Physician: CARINE AMATO MD-GAE Finalized Date/Time: 03/13/21 15:38:27 Pt. Name: YANE REBOLLEDO/Sex: 1970 Female Med Rec #: [id number] Physician: CARINE AMATO MD-GAE Financial #: [id number] Pt. Type: E Room/Bed: [facility]/ Admit/Disch: 03/13/21 12:24:00 - Institution: [facility] Endo - Case Attendance Entry 1 Entry 2 Entry 3 Case Attendee CARINE AMATO FLEMING, SCOTT, -BARTOLOME ISSA APRN, MD-GAE MANAGER PULMONARY-ANS Role Performed Surgeon/Proceduralist, Anesthesiologist of MANAGER PULMONARY/Nurse Pet Care Associate First Record Time In 03/13/21 15:26:00 03/13/21 15:25:00 03/13/21 15:25:00 Time Out 03/13/21 15:38:00 03/13/21 15:38:00 03/13/21 15:38:00 Procedure Esophagogastroduodenosco Esophagogastroduodenosco Esophagogastroduodenosco py py py Other Attendee Superficial Wound Closed By: Last Modified By: Candy Bell Edmundson, Stephanie, Edmundson, Stephanie, JASSON 03/13/21 15:38:16 RN 03/13/21 15:38:16 RN 03/13/21 15:38:16 Entry 4 Entry 5 Case Attendee Onel Martin Edmundson, Stephanie, scabblerSalon Coordinator Role Performed Scrub, First Veneer Marker, First Time In 03/13/21 15:25:00 03/13/21 15:25:00 Time Out 03/13/21 15:38:00 03/13/21 15:38:00 Procedure Esophagogastroduodenosco Esophagogastroduodenosco py py Other Attendee Superficial Wound Closed By: Last Modified By: Candy Bell Edmundson, Stephanie, JASSON 03/13/21 15:38:16 RN 03/13/21 15:38:16 [facility] Endo - Case Attendance Audit 03/13/21 15:38:16 Co Founder And Ceo: [id number] Modifier: [id number] <+> Time Out 1 <*> Procedure Esophagogastroduodenoscopy 2 <+> Time Out 2 <*> Procedure Esophagogastroduodenoscopy 3 <+> Time Out 3 <*> Procedure Esophagogastroduodenoscopy 4 <+> Time Out 4 <*> Procedure Esophagogastroduodenoscopy 5 <+> Time Out 5 <*> Procedure Esophagogastroduodenoscopy 03/13/21 15:35:38 Co Founder And Ceo: [id number] Modifier: [id number] 1 <*> Procedure Esophagogastroduodenoscopy 2 <*> Procedure Esophagogastroduodenoscopy 3 <*> Procedure Esophagogastroduodenoscopy 4 <*> Procedure Esophagogastroduodenoscopy 5 <*> Procedure Esophagogastroduodenoscopy 03/13/21 15:28:29 Co Founder And Ceo: [id number] Modifier: [id number] 1 <*> Time In 03/13/21 15:25:00 1 [...] Endo - Case Times Audit 03/13/21 15:36:56 Co Founder And Ceo: [id number] Modifier: [id number] <+> 1 Out Room Time <+> 1 Stop Time <+> 1 Stop Time 03/13/21 15:31:02 Co Founder And Ceo: [id number] Modifier: [id number] <+> 1 Start Time [facility] End[facility] - [...] Candy Bell, Accompanied by RN, BARTOLOME POND, BUDGET CONTROLLER, MANAGER PULMONARY-ANS Last Modified By: Candy Bell RN 03/13/21 15:28:46 [facility] Endo - Endoscopy Details Entry 1 Abdomen [...] Modified By: Candy Bell RN 03/13/21 15:29:03 [facility] Endo - General Case Accordion Tuner 1 Case Information OR Endo 01 E Case Level 1 Room Verified Yes Wound Class 2 - Clean-Contaminated Specialty Gastroenterology Anesthesia Type MAC ASA Class 3 Diagnosis Preop Diagnosis Dysphagia Postop Diagnosis Esophageal stricture w/dilitation. Mild gastritis. Wound Class Definitions Last Modified By: Candy Bell RN 03/13/21 15:37:40 [facility] Endo - General Case Data Audit 03/13/21 15:37:40 Co Founder And Ceo: [id number] Modifier: [id number] <+> 1 Postop Diagnosis [facility] End[facility] - [...] Modified By: Candy Bell RN 03/13/21 15:29:48 [facility] Endo - Intraoperative Equipment Entry 1 Type Scope Equipment Intraop Monitoring Electrocardiogram Three lead placement (ECG) Electrode Placement Blood Pressure Arm, left upper Location Pulse Oximeter Hand, right Probe Site Antiembolic Devices Scopes Flexible Endoscopes Gastroscope Used Scope Serial 2548 Number/Identificatio n Number Photo/Video Documentation Photo Yes [...] Positioned By Candy Bell RN, BARTOLOME POND, BUDGET CONTROLLER, MANAGER PULMONARY-ANS, Onel Martin, Salon Coordinator Position Verified Positioning Yes Verified by Surgeon Last Modified By: Candy Bell RN 03/13/21 15:35:39 [facility] - Patient Positioning Audit 03/13/21 15:35:39 Co Founder And Ceo: [id number] Modifier: [id number] 1 <*> Procedure Esophagogastroduodenoscopy [facility] End[facility] - Sign In Entry 1 Patient, Site, Yes Procedure Identified Surgical Consent Yes Confirmed Surgical Site N/A Marked by person performing procedure Allergies No Airway Hypothermia Risk No Warming Measures Yes Taken Last Modified By: Candy Bell RN 03/13/21 15:37:50 [facility] End[facility] - Sign In Audit 03/13/21 15:37:50 Co Founder And Ceo: [id number] Modifier: [id number] <+> 1 Surgical Consent Confirmed [facility] Endo [...] 15:36:00 Physician States Cecum Reached Anesthesia Type [facility] Specialty Gastroenterology Wound Class 2 - Clean-Contaminated Last Modified By: Candy Bell RN 03/13/21 15:38:24 [facility] End[facility] - Surgical Procedures Audit 03/13/21 15:38:24 Co Founder And Ceo: [id number] Modifier: [id number] <+> 1 Stop <+> 2 Stop <+> 3 Stop <+> 4 Stop 03/13/21 15:35:28 Co Founder And Ceo: [id number] Modifier: [id number] <+> 1 Start <+> 2 Procedure <+> [...] <+> 4 Additional Procedure Description 03/13/21 15:30:57 Co Founder And Ceo: [id number] Modifier: [id number] 1 <*> Procedure Esophagogastroduodenoscopy 1 <+> Specialty [...] Endo - Time Out Audit 03/13/21 15:35:40 Co Founder And Ceo: [id number] Modifier: [id number] 1 <*> Procedure to be Performed Esophagogastroduodenoscopy Case Comments <None> Finalized By: Candy Bell RN Document Signatures Signed By: Candy Bell RN 03/13/21 15:38 Electronically signed by [facility] Conversion Physical Fitness Trainer Cerner at 07/09/2022 12:12 PM CDT documented in this encounter Plan of Treatment Not on file documented as of this encounter Visit Diagnoses Not on filedocumented in this encounter Care Teams Weatherization Administrator Relationship Specialty Start Date End Date Reina Olmedo, BUDGET CONTROLLER [address] [place] [address] PCP - General Nurse Practitioner 11/14/22 10/01/23 documented as of this encounter
--- OUTSIDE RECORDS SUMMARY | 2024-11-09 10:53 | XMS_ITS | Encounter Summary ---
Author Organization [employer] ([place], [place], [place], [place]) Address [address] [place] [address] Care Team Providers Care School Coordinator Name Role Phone Reina Olmedo APRN Primary Care Provider [phone] [phone] Encounter Details Date Type Department Care Team (Late st Contact Info) Description 12/03/2019 Transcribed Document [facility] TRANSMISSION INSPECTOR - [email or web address] [email or web address] [facility] [address] [place] [address] Radha Rodrigues MD [address], [address] [place] [address] Social History Tobacco Use Types Packs/Day Years [...] to the recovery room in stable condition. /[id number] Radha Rodrigues MD EE/AQ / EE / MODL /[id number] documented in this encounter Plan of Treatment Not on file documented as of this encounter Visit Diagnoses Not on filedocumented in this encounter Care Teams School Coordinator Relationship Specialty Start Date End Date Reina Olmedo, SHOPPER INSIGHTS MANAGER [address] [place] [address] PCP - General Nurse Practitioner 11/14/22 10/01/23 documented as of this encounter
--- OUTSIDE RECORDS SUMMARY | 2024-11-09 10:53 | XMS_ITS | Encounter Summary ---
Author Organization [employer] ([place], [place], [place], [place]) Address [address] [place] [address] Care Team Providers Care Director Of Transportation Name Role Phone Nelliekarissa Reina Nilsa TAMEZ Primary Care Provider +1 -[phone] Encounter Details Date Type Department Care Team (Late st Contact Info) Description 07/27/2020 Transcribed Document [facility] [place] Family Medicine [address] [place] [address] ProviderVeronica MD [address] [place] [address] Social History Tobacco Use Types [...] Source : Stated Height Entry Format : [place] Height, Feet : 5 ft(Converted to: 152 cm, 60 Inch) Height, Inches : 0 Inch(Converted to: 0 ft 0 Inch, 0.00 cm) Clinical Height : 152.4 cm Weight Source : Standing scale Weight Entry Format : [place] Clinical Dosing Weight : 127.73 kg Weight, Pounds : 281 lb Body Surface Area (BSA) : 2.16 m2 Body Mass Index : 55 kg/m2 (>HHI) [place] Body Weight : 45 kg LETY WASSERMAN [...] LETY WASSERMAN RN - 07/27/2020 8:19 EDT [place] Suicide Severity Rating Scale (C-SSRS) CSSRS Past [...] Ambulatory Legal Guardian : Mother Support Person/Patient Business Planning Analyst : Yes Want Family/Rep/Phys Notified of Admit : No Emergency Contact #1 : Meryl Emergency Contact #1 Emergency Contact #1 Relationship : mother Emergency Contact #2 : n/a Emergency Contact #2 Phone Number : n/a Emergency Contact #2 Relationship : n/a Chief Complaint : L/C Information Obtained From : Patient Primary Language : Estonian Preferred Communication Mode : Verbal Communication Barrier : None Kennel Keeper Needed : No LETY WASSERMAN RN - [...] Scale Risk Level : 0-24 Low Risk [place] Fall Interventions : Adequate lighting, Assistive devices [...] filedocumented in this encounter Care Teams Director Of Transportation Relationship Specialty Start Date End Date Reina Olmedo, STUDENT SERVICES ADVISOR [address] [place] [address] PCP - General Nurse Practitioner 11/14/22 10/01/23 documented as of this encounter
--- OUTSIDE RECORDS SUMMARY | 2024-11-09 10:53 | XMS_ITS | Encounter Summary ---
Author Organization [employer] ([place], [place], [place], [place]) Address [address] [place] [address] Care Team Providers Care Furniture Detailer Name Role Phone NelliekarissaReina APRN Primary Care Provider +1 [phone] Encounter Details Date Type Department Care Team (Late st Contact Info) Description 12/02/2019 Transcribed Document [facility] [place] Family Medicine [address] [place] [address] Veronica Correa MD [address] [place], [place] [address] Social History Tobacco Use Types Packs/Day Years [...] activities are safe for you. ??? Take okbh-soq-kxevdgd and prescription medicines only as told by [...] 06/16/2001 Document Revised: 03/13/2018 Document Reviewed: 10/24/2017 [employer] Patient Education ? 2020 [employer]. Myomectomy, Care After This sheet gives you [...] these instructions at home: Medicines ??? Take eryo-pui-awmerdm and prescription medicines only as told by [...] and water are not available, use hand bow stapler. ? Change your dressing as told by [...] urine clear or pale yellow. ? Take pcdr-jks-bjmdsfz or prescription medicines. ? Eat foods that [...] 07/31/2011 Document Revised: 02/20/2018 Document Reviewed: 04/10/2017 [email or web address] Patient Education ? 2020 [email or web address] Hysteroscopy, Care After This sheet gives [...] taking prescription pain medicines. Medicines ??? Take jhod-hef-fkarubf and prescription medicines only as told by [...] urine clear or pale yellow. ? Take rpyz-jsq-yyaxnel or prescription medicines. ? Eat foods that [...] 12/29/2013 Document Revised: 02/20/2018 Document Reviewed: 04/08/2017 [email or web address] Patient Education ? 2020 [employer]. documented in this encounter Plan of Treatment Not on file documented as of this encounter Visit Diagnoses Not on filedocumented in this encounter Care Teams Furniture Detailer Relationship Specialty Start Date End Date Reina Olmedo, WARP SPLITTER [address] [place] [address] PCP - General Nurse Practitioner 11/14/22 10/01/23 documented as of this encounter
--- OUTSIDE RECORDS SUMMARY | 2024-11-09 10:53 | XMS_ITS | Encounter Summary ---
Author Organization [employer] ([place], [place], [place], [place]) Address [address] [place] [address] Care Team Providers Care Rig Hand Name Role Phone NellieReina hancock Nilsa TAMEZ Primary Care Provider [phone] [phone] Encounter Details Date Type Department Care Team (Late st Contact Info) Description 12/02/2019 Transcribed Document [facility] [place] [address] [place] [address] ProviderVeronica MD [address] [place] [address] Social History Tobacco Use Types [...] Veronica ProviderMD - 12/02/2019 4:44 PM CDT [place] [id number] YANE REBOLLEDO :1970 Visit Time:12/02/2019 What to [...] activities are safe for you. ??? Take jvvt-vtb-iwfguhm and prescription medicines only as told by [...] Reviewed: 10/24/2017 Elsevier Patient Education ?? [address] Myomectomy, Care After This sheet gives [...] these instructions at home: Medicines ??? Take cxrj-iqz-pkxztfz and prescription medicines only as told by [...] and water are not available, use hand entertainment director. ? Change your dressing as told by [...] urine clear or pale yellow. ? Take razn-gxr-eqkujbi or prescription medicines. ? Eat foods that [...] 07/31/2011 Document Revised: 02/20/2018 Document Reviewed: 04/10/[address] Patient Education ?? 2020 [employer]. Hysteroscopy, Care After This sheet gives you [...] taking prescription pain medicines. Medicines ??? Take pocg-rpk-firzcak and prescription medicines only as told by [...] urine clear or pale yellow. ? Take aorz-csg-moqdqod or prescription medicines. ? Eat foods that [...] 12/29/2013 Document Revised: 02/20/2018 Document Reviewed: 04/08/[address] Patient Education ?? 2020 [employer]. acetaminophen and oxycodone (a SEET a MIN [...] may report side effects to FDA at 6-197-KYW-0209. What other drugs will affect acetaminophen and [...] affect acetaminophen and oxycodone, including prescription and ubzy-kvu-lklndgo medicines, vitamins, and herbal products. Not all [...] to ensure that the information provided by [employer]. ('[employer]') is accurate, up-to-date, and complete, but no guarantee is made to that effect. Drug information contained herein may be time sensitive. [employer] information has been compiled for use by healthcare practitioners and consumers in the [place] and therefore [employer] does not warrant that uses outside of the [place] are appropriate, unless specifically indicated otherwise. [employer]'s drug information does not endorse drugs, diagnose patients or recommend therapy. [employer] drug information is an informational resource designed [...] effective or appropriate for any given patient. [facility] does not assume any responsibility for any aspect of healthcare administered with the aid of information [facility] provides. The information contained herein is not intended to cover all possible uses, directions, precautions, warnings, drug interactions, allergic reactions, or adverse effects. If you have questions about the drugs you are taking, check with your doctor, nurse or pharmacist. Copyright 5032-7630 [facility] [employer] [facility]. Version: .. Revision Date: 04/14/2019. ibuprofen (EYE bue PROE fen) Advil, Genpril, IBU, Midol IB, Motrin IB, Proprinal, Smart Sense Children's Ibuprofen What is the most important information I should know about ibuprofen? Ibuprofen can increase your risk of fatal heart attack or stroke, especially if you use it terminal worker or take high doses, or if you [...] or stroke, especially if you use it chcf or take high doses, or if you [...] may report side effects to FDA at 9-539-QVE-5648. What other drugs will affect ibuprofen? Ask [...] may interact with ibuprofen, including prescription and dgcd-ody-ukylqay medicines, vitamins, and herbal products. Not all [...] to ensure that the information provided by [employer]. ('[employer]') is accurate, up-to-date, and complete, but no guarantee is made to that effect. Drug information contained herein may be time sensitive. [employer] information has been compiled for use by healthcare practitioners and consumers in the [place] and therefore [employer] does not warrant that uses outside of the [place] are appropriate, unless specifically indicated otherwise. [employer] drug information does not endorse drugs, diagnose patients or recommend therapy. [employer] drug information is an informational resource designed [...] effective or appropriate for any given patient. [employer] does not assume any responsibility for any aspect of healthcare administered with the aid of information [employer] provides. The information contained herein is not intended to cover all possible uses, directions, precautions, warnings, drug interactions, allergic reactions, or adverse effects. If you have questions about the drugs you are taking, check with your doctor, nurse or pharmacist. Copyright 8608-9421 [employer]. Version: 21.. Revision Date: 04/05/2019. Emergency Awareness [...] Assistance with quitting is available by contacting 6-387-CLKK-NOW. This is a free resource providing counseling, [...] was given the opportunity to ask questions. Patient/Physical Therapy Professor Name: Patient/Physical Therapy Professor Signature: Relationship to Patient: Clinician/Hospital Physical Therapy Professor Signature: Date: Electronically signed by Interface, [facility] Conversion Chiller Technician Cerner at 07/09/2022 12:31 PM CDT documented in this encounter Plan of Treatment Not on file documented as of this encounter Visit Diagnoses Not on filedocumented in this encounter Care Teams Rig Hand Relationship Specialty Start Date End Date , Reina Ash, RAILROAD TRACK REPAIR SUPERVISOR [address] [place] [address] PCP - General Nurse Practitioner 11/14/22 10/01/23 documented as of this encounter
--- OUTSIDE RECORDS SUMMARY | 2024-11-09 10:53 | XMS_ITS | Encounter Summary ---
Author Organization [employer] ([place], [place], [place], [place]) Address [address] [place] [address] Care Team Providers Care School Child Care Attendant Name Role Phone Nelliekarissa Reina Nilsa TAMEZ Primary Care Provider [phone] Encounter Details Date Type Department Care Team (Late st Contact Info) Description 03/13/2021 Transcribed Document [facility] [place] [address] [place] [address] ProviderVeronica MD [address] [place] [address] Social History Tobacco Use Types [...] - Historical ProviderMD - 03/13/2021 2:07 PM OVERHEAD DISTRIBUTION ENGINEER Pre Procedure Adult Entered On: 03/13/2021 14:09 EST Performed On: 03/13/2021 14:07 EST by Vanna Durant Rn Height and Weight, Clinical Dosing Height Source : Stated Height Entry Format : [place] Height, Feet : 5 ft(Converted to: 152 cm, 60 Inch) Height, Inches : 0 Inch(Converted to: 0 ft 0 Inch, 0.00 cm) Clinical Height : 152.4 cm Weight Source : Standing scale Weight Entry Format : [place] Clinical Dosing Weight : 124.64 kg Weight, Pounds : 274.2 lb Body Surface Area (BSA) : 2.14 m2 Body Mass Index : 53.7 kg/m2 (>HHI) [place] Body Weight : 45 kg Vanna Durant [...] Vanna Durant Rn - 03/13/2021 14:07 EST [place] Suicide Severity Rating Scale (C-SSRS) CSSRS Past [...] 03/13/2021 14:07 EST General Info Support Person/Patient Home Care Aide : Yes Want Family/Rep/Phys Notified of Admit : No Emergency Contact #1 : Meryl Emergency Contact #1 Emergency Contact #1 Relationship : mother Emergency Contact #2 : . Emergency Contact #2 Phone Number : . Emergency Contact #2 Relationship : . Primary Language : Kittitian Preferred Communication Mode : Verbal Communication Barrier : None Checker Bakery Products Needed : No Vanna Durant Rn - [...] Scale Risk Level : 0-24 Low Risk [place] Fall Interventions : Adequate lighting, Assistive devices within reach, Bed in low position, Call device within reach Vanna Durant Rn - 03/13/2021 14:07 EST Valuables and Belongings Valuables and Belongings : Clothing Clothing : Common streetwear Clothing Disposition : Bedside Vanna Durant Rn - 03/13/2021 14:07 EST Electronically signed by Tayler Carnes Conversion Sales Representative [employer] Cerner at 07/09/2022 12:14 PM CDT documented in this encounter Plan of Treatment Not on file documented as of this encounter Visit Diagnoses Not on filedocumented in this encounter Care Teams School Child Care Attendant Relationship Specialty Start Date End Date Reina Olmedo, DASHAWN [address] [place] [address] PCP - General Nurse Practitioner 11/14/22 10/01/23 documented as of this encounter
--- OUTSIDE RECORDS SUMMARY | 2024-11-09 10:53 | XMS_ITS | Encounter Summary ---
Author Organization [employer] ([place], [place], [place], [place]) Address [address] [place] [address] Care Team Providers Care Workers Compensation Claims Supervisor Name Role Phone NellieReina hancock Nilsa TAMEZ Primary Care Provider [phone] Encounter Details Date Type Department Care Team (Late st Contact Info) Description 08/03/2020 Transcribed Document [facility] [place] [address] [place] [address] ProviderVeronica MD [address] [place] [address] Social History Tobacco Use Types [...] On: 08/03/2020 12:56 EDT by Dennis Gamino, It Service Technician Cert Meds to Bed Enrollment Patient Enrollment Decision: : Yes/enroll in meds to bed program Meds to Beds Comment : Dennis Bernal, It Service Technician Cert - 08/04/2020 11:46 EDT documented in this encounter Plan of Treatment Not on file documented as of this encounter Visit Diagnoses Not on filedocumented in this encounter Care Teams Workers Compensation Claims Supervisor Relationship Specialty Start Date End Date Reina, EXTERNAL GRINDER TENDER [address] [place] [address] PCP - General Nurse Practitioner 11/14/22 10/01/23 documented as of this encounter
--- OUTSIDE RECORDS SUMMARY | 2024-11-09 10:53 | XMS_ITS | Encounter Summary ---
Author Organization [employer] ([place], [place], [place], [place]) Address [address] [place] [address] Care Team Providers Care Professor Of Architecture Name Role Phone Reian Olmedo DASHAWN Primary Care Provider [phone] Encounter Details Date Type Department Care Team (Late st Contact Info) Description 07/27/2020 Transcribed Document [facility] [place] [address] [place] [address] ProviderVeronica MD [address] [place] [address] Social History Tobacco Use Types [...] on filedocumented in this encounter Care Teams Professor Of Architecture Relationship Specialty Start Date End Date Reina Olmedo, BUSINESS DEVELOPMENT PROFESSIONAL [address] [place] [address] PCP - General Nurse Practitioner 11/14/22 10/01/23 documented as of this encounter
--- OUTSIDE RECORDS SUMMARY | 2024-11-09 10:53 | XMS_ITS | Encounter Summary ---
Author Organization [employer] ([place], [place], [place], [place]) Address [address] [place] [address] Care Team Providers Care Sugar Cane Farm Manager Name Role Phone Reina Olmedo APRN Primary Care Provider [phone] Encounter Details Date Type Department Care Team (Late st Contact Info) Description 08/03/2020 Transcribed Document [facility] OVERLOCK COLLAR SETTER - [employer] [address] [facility] [address] [place] [address] Radha Rodrigues MD [address] [facility], [address] [place] [address] Social History Tobacco Use Types Packs/Day Years [...] PROCEDURES PERFORMED: Total laparoscopic hysterectomy, bilateral salpingectomy. PARCEL WRAPPER: Aidee. INDICATION FOR SURGERY: The patient is [...] recovery room in alert and stable condition. /[id number] Radha Rodrigues MD EE/AQ / EE / MODL /[id number] documented in this encounter Plan of Treatment Not on file documented as of this encounter Visit Diagnoses Not on filedocumented in this encounter Care Teams Sugar Cane Farm Manager Relationship Specialty Start Date End Date Reina Olmedo, INDUSTRIAL SERVICER [address] [place] [address] PCP - General Nurse Practitioner 11/14/22 10/01/23 documented as of this encounter
--- OUTSIDE RECORDS SUMMARY | 2024-11-09 10:53 | XMS_ITS | Encounter Summary ---
Author Organization [employer] ([place], [place], [place], [place]) Address [address] [place] [address] Care Team Providers Care Wire Wrapping Machine Operator Name Role Phone NellieReina hancock Nilsa TAMEZ Primary Care Provider [phone] Encounter Details Date Type Department Care Team (Late st Contact Info) Description 07/27/2020 Transcribed Document [facility] [place] [address] [place] [address] ProviderVeronica MD [address] [place] [address] Social History Tobacco Use Types [...] to thoroughly wash your hands, use hand geoint analyst. While handwashing is best, hand geoint analyst helps to reduce the spread of germs when you are out and about. Have hand geoint analyst in several locations so you can always [...] keep people from also getting sick. Don???t [place] It! Sneezing this time of year is [...] a PCP near you, please visit [employer] [email or web address]. May 28, 2019 Carbohydrate Counting for [...] different for every person. A diet and medical language specialist (registered dietitian) can help you make [...] of carbohydrates: ? hamburger bun or ? Urdu muffin. ? oz (15 mL) syrup. ? [...] foods that contain carbohydrates: ??? Rice. ??? [place]. ??? Milk. ??? Strawberries. 2. Calculate how [...] manage your diabetes. ??? A diet and medical language specialist (registered dietitian) can help you make a meal plan and calculate how many carbohydrates you should have at each meal and snack. This information is not intended to replace advice given to you by your health care provider. Make sure you discuss any questions you have with your health care provider. Document Revised: 10/02/2017 Document Reviewed: 08/21/2016 [employer] Patient Education ? 2020 [employer] Diabetes Mellitus and Nutrition, Adult When [...] that you work with a diet and medical language specialist (dietitian) to make a meal plan [...] provider. ??? Work with a counselor or music educator to identify strategies to manage stress and any emotional and social challenges. Questions to ask a health care provider ??? Do I need to meet with a music educator? Do I need to meet with a dietitian? What number can I call if I have questions? When are the best times to check my blood glucose? Where to find more information: ??? [place] Diabetes Association: diabetes.org ??? Academy of Nutrition and Dietetics: www.eatright.org ??? National [place] of Diabetes and Digestive and Kidney Diseases (NIH): www.niddk.nih.gov Summary ??? A healthy meal plan will help you control your blood glucose and maintain a healthy lifestyle. ??? Working with a diet and medical language specialist (dietitian) can help you make a [...] provider. Document Revised: 02/20/2018 Document Reviewed: 04/14/2017 [employer] Patient Education ? 2020 [employer] Moderate Conscious Sedation, Adult, Care After [...] you are awake and alert. ??? Take ltly-zvx-gbtfgqu and prescription medicines only as told by [...] provider. Document Revised: 02/20/2018 Document Reviewed: 06/29/2016 [employer] Patient Education ? 2020 [employer] Radial Site Care This sheet gives [...] these instructions at home: Medicines ??? Take lhwc-bri-pebdfrw and prescription medicines only as told by your health care provider. Insertion site care ??? Follow instructions from your health care provider about how to take care of your insertion site. Make sure you: ? Wash your hands with soap and water before you change your bandage (dressing). If soap and water are not available, use hand geoint analyst. ? Change your dressing as told by [...] provider. Document Revised: 04/15/2018 Document Reviewed: 04/15/2018 [employer] Patient Education ? 2020 [employer] Transradial Angiogram A transradial angiogram is [...] including vitamins, herbs, eye drops, creams, and nkvo-zmp-yjccoxd medicines. ??? Any problems you or family [...] tells you to take them. ??? Taking pfvu-qpb-kiynnhq medicines, vitamins, herbs, and supplements. Exams and [...] provider. Document Revised: 02/01/2019 Document Reviewed: 02/01/2019 [employer] Patient Education ? 2019 [employer]. Radiology Coronary Angiogram A coronary angiogram is [...] including vitamins, herbs, eye drops, creams, and dlyk-cje-zeszpnl medicines. ??? Any problems you or family [...] do not normally take it. ??? Taking gnqr-okm-wmbsadf medicines, vitamins, herbs, and supplements. General instructions [...] Reviewed: 09/30/2019 Elsevier Patient Education ? 2020 [employer] documented in this encounter Plan of Treatment Not on file documented as of this encounter Visit Diagnoses Not on filedocumented in this encounter Care Teams Wire Wrapping Machine Operator Relationship Specialty Start Date End Date Reina Olmedo, ICU CLERK [address] [place] [address] PCP - General Nurse Practitioner 11/14/22 10/01/23 documented as of this encounter
--- OUTSIDE RECORDS SUMMARY | 2024-11-09 10:53 | XMS_ITS | Encounter Summary ---
Author Organization [employer] ([place], [place], [place], [place]) Address [address] [place] [address] Care Team Providers Care Library Services Assistant Name Role Phone NellieReina hancock Nilsa TAMEZ Primary Care Provider [phone] Encounter Details Date Type Department Care Team (Late st Contact Info) Description 07/27/2020 Transcribed Document [facility] [place] [address] [place] [address] ProviderVeronica MD [address] [place] [address] Social History Tobacco Use Types [...] 07/27/2020 13:07 EDT Electronically signed by Deyvi [facility] Conversion Watchmaking Teacher Cerner at 07/09/2022 12:17 PM CDT documented in this encounter Plan of Treatment Not on file documented as of this encounter Visit Diagnoses Not on filedocumented in this encounter Care Teams Library Services Assistant Relationship Specialty Start Date End Date Reina, NET SOLUTIONS ARCHITECT [address] [place] [address] PCP - General Nurse Practitioner 11/14/22 10/01/23 documented as of this encounter
--- OUTSIDE RECORDS SUMMARY | 2024-11-09 10:53 | XMS_ITS | Encounter Summary ---
Author Organization [employer] ([place], [place], [place], [place]) Address [address] [place] [address] Care Team Providers Care Sap Solution Manager Consultant Name Role Phone Reina Olmedo DASHAWN Primary Care Provider +1 [phone] Encounter Details Date Type Department Care Team (Late st Contact Info) Description 08/04/2020 Transcribed Document [facility] [address] [place] [address] ProviderVeronica MD [address] [place] [address] Social History Tobacco Use Types [...] Veronica ProviderMD - 08/04/2020 12:18 [place] [address] YANE REBOLLEDO :1970 Visit Time:08/03/2020 Your Visit Summary Your Care Team Admitting Physician - YOU HAWTHORNE MD-OBG Attending Physician - YOU HAWTHORNE MD-OBG Primary Care Physician - WILL BRIDGES, -[facility] Referring Physician - YOU HAWTHORNE MD-OBG [...] When 08/15/2020 02:00 PM EDT Where: [address] [place] [address]- Medications What How Much When Instructions Next Dose acetaminophen-oxyCODONE (Percocet 5/ 325 oral tablet) 1 Tablet(s) Oral Every 6 Hours not to exceed 12 tablets/ day Pickup at [facility] ibuprofen (ibuprofen 800 mg oral tablet) 1 Tablet(s) Oral Every 6 Hours not to exceed 3200 mg/ day Pickup at [facility] 08/04/20 at 6pm aspirin [...] 2 Tablet(s) Oral At Bedtime Pharmacy Information [facility]: [address] [place] [address] [phone] Take your medications faithfully. Do NOT skip [...] water are not available, use hand manager research and development. ? Change or remove your dressing as [...] Do not have sex. Medicines ??? Take shgv-avw-sylpdtx and prescription medicines only as told by your health care provider. ??? Ask your health care provider if the medicine prescribed to you: ? Requires you to avoid driving or using heavy machinery. ? Can cause constipation. You may need to take actions to prevent or treat constipation, such as: ? Drink enough fluid to keep your urine pale yellow. ? Take nxnq-vez-rjqxijm or prescription medicines. ? Eat foods that [...] provider. Document Revised: 03/01/2019 Document Reviewed: 03/01/2019 [employer]ORT Patient Education ?? 2020 Yamsafer. Total Laparoscopic Hysterectomy, Care After This sheet [...] water are not available, use hand manager research and development. ? Change your dressing as told by [...] by your health care provider. ??? Take wpnx-emx-tkgcsdo and prescription medicines only as told by [...] urine clear or pale yellow. ? Take puke-ksg-iambvad or prescription medicines. ? Eat foods that [...] provider. Document Revised: 02/20/2018 Document Reviewed: 05/21/2017 [employer]ORT Patient Education ?? 2020 Yamsafer. acetaminophen and oxycodone (a SEET a MIN [...] may report side effects to FDA at 7-653-GCO-6177. What other drugs will affect acetaminophen and [...] affect acetaminophen and oxycodone, including prescription and oujd-yyn-utkmqci medicines, vitamins, and herbal products. Not all [...] to ensure that the information provided by [employer]. ('Multum') is accurate, up-to-date, and complete, but no guarantee is made to that effect. Drug information contained herein may be time sensitive. C[employer] information has been compiled for use by healthcare practitioners and consumers in the [place] and therefore [employer] does not warrant that uses outside of the [place] are appropriate, unless specifically indicated otherwise. [employer]'s drug information does not endorse drugs, diagnose patients or recommend therapy. [employer] Towerss drug information is an informational resource designed [...] effective or appropriate for any given patient. [employer] does not assume any responsibility for any aspect of healthcare administered with the aid of information [employer] provides. The information contained herein is not intended to cover all possible uses, directions, precautions, warnings, drug interactions, allergic reactions, or adverse effects. If you have questions about the drugs you are taking, check with your doctor, nurse or pharmacist. Copyright 2040-5174 [employer]. Version: 20.03. Revision Date: 04/28/2020. ibuprofen (EYE [...] may report side effects to FDA at 6-646-UCK-1949. What other drugs will affect ibuprofen? Ask [...] drugs may affect ibuprofen, including prescription and qyiw-qcu-urjpnkk medicines, vitamins, and herbal products. Not all [...] to ensure that the information provided by [employer]. ('Multum') is accurate, up-to-date, and complete, but no guarantee is made to that effect. Drug information contained herein may be time sensitive. Cuciniale information has been compiled for use by healthcare practitioners and consumers in the [place] and therefore [employer] does not warrant that uses outside of the [place] are appropriate, unless specifically indicated otherwise. [employer] drug information does not endorse drugs, diagnose patients or recommend therapy. Anesiva drug information is an informational resource designed [...] effective or appropriate for any given patient. [employer] does not assume any responsibility for any aspect of healthcare administered with the aid of information [employer] provides. The information contained herein is not intended to cover all possible uses, directions, precautions, warnings, drug interactions, allergic reactions, or adverse effects. If you have questions about the drugs you are taking, check with your doctor, nurse or pharmacist. Copyright 2323-4257 [employer]. Version: 22.01. Revision Date: 02/16/2020. Emergency Awareness [...] Assistance with quitting is available by contacting 3-091-LBXD-NOW. This is a free resource providing counseling, [...] range between ( 1.0 and 7.0 ) [place]land #: 0.79 K/uL -- Normal range between ( 0.24 and 0.82 ) Eos #: 0.01 K/uL -- Normal range between ( 0.04 and 0.54 ) [place]land %: 7.5 % -- Normal range between [...] was given the opportunity to ask questions. Patient/Painter Sign Maintenance Name: Patient/Painter Sign Maintenance Signature: Relationship to Patient: Clinician/Hospital Painter Sign Maintenance Signature: Date: documented in this encounter Plan of Treatment Not on file documented as of this encounter Visit Diagnoses Not on filedocumented in this encounter Care Teams Sap Solution Manager Consultant Relationship Specialty Start Date End Date FebReina hancock APRN [address] [place] [address] PCP - General Nurse Practitioner 11/14/22 10/01/23 documented as of this encounter
--- OUTSIDE RECORDS SUMMARY | 2024-11-09 10:53 | XMS_ITS | Encounter Summary ---
Author Organization [employer] ([place], [place], [place], [place]) Address [address] [place] [address] Care Team Providers Care Quilting Machine Helper Name Role Phone Reina Olmedo APRN Primary Care Provider [phone] [phone] Encounter Details Date Type Department Care Team (Late st Contact Info) Description 08/03/2020 Transcribed Document [facility] Family Medicine [address] [place] [address] ProviderVeronica MD [address] [place] [address] Social History Tobacco Use Types [...] YANE REBOLLEDO/Sex: 1970 Female Med Rec #: [id number] Physician: YOU HAWTHORNE MD-OBG Financial #: [id number] Pt. Type: O Room/Bed: [facility] Admit/Disch: 08/03/20 03:59:00 - Institution: [facility] PreOp Case Times Entry 1 In Preop 08/03/20 07:55:00 Ready for Holding 08/03/20 08:51:00 Room Patient Ready for 08/03/20 08:51:00 Surgery Patient Out of Preop 08/03/20 09:38:00 Patient Out of n/a Holding Room Last Modified By: CLINTON CASTAÑEDA RN 08/03/20 12:23:54 [facility] PreOp Case Times Audit 08/03/20 12:23:54 Business Information Analyst: IESHA Modifier: YULI <+> 1 Patient Out of Preop Finalized By: CLINTON CASTAÑEDA, RN Document Signatures Signed By: CLINTON CASTAÑEDA RN 08/03/20 12:23 documented in this encounter Plan of Treatment Not on file documented as of this encounter Visit Diagnoses Not on filedocumented in this encounter Care Teams Quilting Machine Helper Relationship Specialty Start Date End Date Reina Olmedo, VET ASSISTANT [address] [place] [address] PCP - General Nurse Practitioner 11/14/22 10/01/23 documented as of this encounter
--- OUTSIDE RECORDS SUMMARY | 2024-11-09 10:53 | XMS_ITS | Encounter Summary ---
Author Organization [employer] ([place], [place], [place], [place]) Address [address] [place] [address] Care Team Providers Care Knitter Wire Mesh Name Role Phone Nelliekarissa Reina Nilsa TAMEZ Primary Care Provider +1 [phone] Encounter Details Date Type Department Care Team (Late st Contact Info) Description 11/08/2020 Transcribed Document [facility] Family Medicine [address] [place] [address] ProviderVeronica MD [address] [place] [address] Social History Tobacco Use Types [...] 84. Artifact was present at intervals. 7. Yoxn-tj-jgfxtvrv snoring was present. IMPRESSION: Moderate obstructive sleep apnea. PLAN: The patient is scheduled to return to clinic to review data and treatment options. In the interim, she will be offered a trial of auto CPAP at 6-20 cm. /[id number] Melinda Lopez MD PAC/AQ / PAC / MODL /[id number] Electronically signed by Deyvi [facility] Conversion Quality Nurse Cerner at 07/09/2022 12:17 PM CDT documented in this encounter Plan of Treatment Not on file documented as of this encounter Visit Diagnoses Not on filedocumented in this encounter Care Teams Knitter Wire Mesh Relationship Specialty Start Date End Date Reina Olmedo, GATE WATCH [address] [place] [address] PCP - General Nurse Practitioner 11/14/22 10/01/23 documented as of this encounter
--- OUTSIDE RECORDS SUMMARY | 2024-11-09 10:53 | XMS_ITS | Encounter Summary ---
Author Organization [employer] ([place], [place], [place], [place]) Address [address] [place] [address] Care Team Providers Care Outpatient Coder Name Role Phone Reina Olmedo DASHAWN Primary Care Provider [phone] [phone] Encounter Details Date Type Department Care Team (Late st Contact Info) Description 03/13/2021 Transcribed Document [facility] [place] [address] [place] [address] ProviderVeronica MD [address] [place] [address] Social History Tobacco Use Types [...] - Historical ProviderMD - 03/13/2021 3:30 PM EMERGENCY ROOM PHYSICIAN ASSISTANT [facility] PACU Summary Primary Physician: CARINE AMATO MD-GAE Finalized Date/Time: 03/13/21 16:11:33 Pt. Name: YANE REBOLLEDO/Sex: 1970 Female Med Rec #: [id number] Physician: CARINE AMATO MD-GAE Financial #: [id number] Pt. Type: E [facility]Bed: [facility]/ Admit/Disch: 03/13/21 12:24:00 - 03/13/21 15:47:00 Institution: [facility] PACU Case Times Entry 1 In PACU I 03/13/21 15:39:00 Ready for PACU 03/13/21 16:03:00 Discharge Discharge from PACU 03/13/21 16:11:00 I [facility] PACU Case Times Audit 03/13/21 16:11:32 Title Camera Operator: [id number] Modifier: [id number] <+> 1 Ready for PACU Discharge <+> 1 Discharge from PACU I Finalized By: Lolis Ivan RN-PATIENT CARE BEDSIDE NON-EXEMPT Document Signatures Signed By: Lolis Ivan RN-PATIENT CARE BEDSIDE NON-EXEMPT 03/13/21 16:11 documented in this encounter Plan of Treatment Not on file documented as of this encounter Visit Diagnoses Not on filedocumented in this encounter Care Teams Outpatient Coder Relationship Specialty Start Date End Date Reina Olmedo, MORTUARY BEAUTICIAN [address] [place] [address] PCP - General Nurse Practitioner 11/14/22 10/01/23 documented as of this encounter
--- OUTSIDE RECORDS SUMMARY | 2024-11-09 10:53 | XMS_ITS | Clinical Summary ---
Author Organization [facility] Address [address] [place] [address] Care Team Providers Care Unarmed Security Officer Name Role Phone Sonia Dumas Primary Care Provider [phone] Allergies Active Allergy Reactions Criticality Noted Date Comments Corylus Hives,Itching,Rash High 01/06/2023 Egg Solids, Whole Hives,Itching,Rash High 01/06/2023 Milk (Cow) Hives,Itching,Rash High 01/06/2023 Molds & Smuts Hives,Itching,Rash High 01/06/2023 Tomato Hives,Itching,Rash High 01/06/2023 [place] Hives,Itching,Rash High 01/06/2023 Medications aspirin 81 MG [...] a day. 4 Active ergocalciferol 1.25 MG (11130 UT) capsule Take 1 capsule (50,000 Units) [...] Due Date Last Done Comments [facility]-Diabetes: Hemoglobin A1C 1970 [facility]-HIV Screening 1970 [facility]-Hepatitis C Screening 1970 [facility]-Infant/Child/Adol SDOH Screenings 1970 Diabetes: Dental Exam 1982 [facility]- SDOH Screenings 1990 [facility]-Adult SDOH Screenings 1990 [facility]-Hepatitis B Vaccines (1 of 3 - 19+ 3-dose series) 12/17/1991 CT Colonography 2017 Colonoscopy 2017 FIT-DNA 2017 FIT 2017 FOBT 2017 Sigmoidoscopy 2017 [facility]-Colorectal Cancer Screening 2017 [facility]-Breast Cancer Screening 2022 11/11/2018 [id number] Vaccine ( season) 2023 12/27/2022, 12/24/2021, 08/09/2021, [...] Narrative SUNQUEST - 02/11/2011 4:50 PM EST [facility] MR #: [id number] [facility] [facility] [address] 1970 (Age: 40) FW Collect Date: 02/04/2011 00:00 Receipt Date: 02/05/2011 14:09 Page 1 DEPARTMENT OF PATHOLOGY AND LABORATORY MEDICINE CYTOPATHOLOGY REPORT Email: [email or web address] [phone] ATTENDING MD/Practitioner: Gregg Huerta MD Service: OBE Location: [facility] Reported: 02/11/2011 16:50 Collected: 02/04/2011 00:00 INTERPRETATION A. THIN PREP (CERVICAL/VAGINAL): NEGATIVE FOR INTRAEPITHELIAL LESION OR MALIGNANCY. SATISFACTORY FOR EVALUATION; TRANSFORMATION ZONE COMPONENT CANNOT BE DEFINITIVELY IDENTIFIED DUE TO THE PRESENCE OF ATROPHY OR OTHER HORMONAL CHANGES. Slide scanned and imaged by [employer] ThinPrep Imaging System with manual review of [...] results is suggested (please call Microbiology at [phone] for results). CLINICAL INFORMATION: Menstrual History: Other: absent Date of Last Menstrual Period: 09/2008 Contraceptive History: Hormonal Other Clinical Conditions: If ASCUS and > 24 years of age, HPV/DNA testing requested. SPECIMEN DESCRIPTION: A: THIN PREP (CERVICAL/VAGINAL) THIN PREP PROCESS CELLULAR ENHANCEMENT ICD: F: A; RT IMAGE [id number] SNOMED CODES: A; [id number] In cases where a pathologist has signed out the report, the service has been rendered in part by a resident. The signing pathologist has performed and is responsible for the reported pathologic evaluation. Nataliya Huerat MD LAB PATHOLOGY ORDERABLES Fin al Result [facility]Brain[facility] from Last 3 Months or Most Recently Relevant to Health Maintenance Insurance [facility] [place] [address] Care Teams Unarmed Security Officer Relationship Specialty Start Date End Date Sonia Dumas PA [address] [place] [address] PCP - General 02/02/24
--- OUTSIDE RECORDS SUMMARY | 2024-11-09 10:53 | XMS_ITS | Encounter Summary ---
Author Organization [employer] ([place], [place], [place], [place]) Address [address] [place] [address] Care Team Providers Care Lifestyle Block Farmer Name Role Phone Reina Olmedo DASHAWN Primary Care Provider [phone] [phone] Encounter Details Date Type Department Care Team (Late st Contact Info) Description 07/27/2020 Transcribed Document [facility] Family Medicine [address] [place] [address] ProviderVeronica MD [address] [place] [address] Social History Tobacco Use Types [...] 07/27/2020 11:47 EDT Electronically signed by Deyvi [facility] Conversion French Folder Cerner at 07/09/2022 12:38 PM CDT documented in this encounter Plan of Treatment Not on file documented as of this encounter Visit Diagnoses Not on filedocumented in this encounter Care Teams Lifestyle Block Farmer Relationship Specialty Start Date End Date Reina, TRANSIT MAN [address] [place] [address] PCP - General Nurse Practitioner 11/14/22 10/01/23 documented as of this encounter
--- OUTSIDE RECORDS SUMMARY | 2024-11-09 10:53 | XMS_ITS | Encounter Summary ---
Author Organization [employer] ([place], [place], [place], [place]) Address [address] [place] [address] Care Team Providers Care Logistics Solution Manager Name Role Phone Reina Olmedo GLASS BEVELLER Primary Care Provider [phone] [phone] Encounter Details Date Type Department Care Team (Late st Contact Info) Description 08/04/2020 Transcribed Document [facility] [place] [address] [place] [address] ProviderVeronica MD [address] [place] [address] Social History Tobacco Use Types [...] ARNOLD HOYT SW - 08/04/2020 11:16 EDT Electronically signed by Tayler Carnes Conversion Coding And Reimbursement Specialist Cerner at 07/09/2022 12:13 PM CDT documented in this encounter Plan of Treatment Not on file documented as of this encounter Visit Diagnoses Not on filedocumented in this encounter Care Teams Logistics Solution Manager Relationship Specialty Start Date End Date Reina Olmedo, GLASS BEVELLER [address] [place] [address] PCP - General Nurse Practitioner 11/14/22 10/01/23 documented as of this encounter
--- OUTSIDE RECORDS SUMMARY | 2024-11-09 10:53 | XMS_ITS | Encounter Summary ---
Author Organization [employer] ([place], [place], [place], [place]) Address [address] [place] [address] Care Team Providers Care Guidance Secretary Name Role Phone Reina Olmedo DASHAWN Primary Care Provider [phone] [phone] Encounter Details Date Type Department Care Team (Late st Contact Info) Description 03/13/2021 Transcribed Document [facility] [place] [address] [place] [address] ProviderVeronica MD [address] [place] [address] Social History Tobacco Use Types [...] - Veronica ProviderMD - 03/13/2021 3:38 PM HAND CANDY MOLDER Patient: YANE REBOLLEDO Age: 50 years Sex: Female : 1970 Associated Diagnoses: None Author: CARINE RAMEY MD-CA[facility]ipol[facility] Upper Endoscopy Procedure Report: Esophagogastroduodenoscopy with cold [...] The entire esophagus was dilated to 60 Georgian/20 mm with a TTS hydrostatic balloon. There [...] on filedocumented in this encounter Care Teams Guidance Secretary Relationship Specialty Start Date End Date Reina Olmedo, ROOMING HOUSE OPERATOR [address] [place] [address] PCP - General Nurse Practitioner 11/14/22 10/01/23 documented as of this encounter
--- OUTSIDE RECORDS SUMMARY | 2024-11-09 10:53 | XMS_ITS | Encounter Summary ---
Author Organization [employer] ([place], [place], [place], [place]) Address [address] [place] [address] Care Team Providers Care Vice President Network Name Role Phone NellieReina hancock Nilsa TAMEZ Primary Care Provider [phone] [phone] Encounter Details Date Type Department Care Team (Late st Contact Info) Description 11/08/2020 Transcribed Document [facility] [facility] [place] [address] ProviderVeronica MD [address] [place] [address] Social History Tobacco Use Types [...] Ms. Oconnor and continue in her care. /[id number] Melinda Lopez MD PAC/AQ / PAC / MODL /[id number] CC: MD Holly aCrlson APRN Electronically signed by [facility] Conversion Plastic Boat Buffer Cerner at 07/09/2022 12:33 PM CDT documented in this encounter Plan of Treatment Not on file documented as of this encounter Visit Diagnoses Not on filedocumented in this encounter Care Teams Vice President Network Relationship Specialty Start Date End Date Reina APRN [address] [place] [address] PCP - General Nurse Practitioner 11/14/22 10/01/23 documented as of this encounter
--- OUTSIDE RECORDS SUMMARY | 2024-11-09 10:53 | XMS_ITS | Encounter Summary ---
Author Organization [employer] ([place], [place], [place], [place]) Address [address] [place] [address] Care Team Providers Care Editorial Cartoonist Name Role Phone Reina Olmedo DASHAWN Primary Care Provider +1 [phone] Encounter Details Date Type Department Care Team (Late st Contact Info) Description 03/13/2021 Transcribed Document [facility] [address] [place] [address] ProviderVeronica MD [address] [place] [address] Social History Tobacco Use Types [...] - Historical ProviderMD - 03/13/2021 2:30 PM TECHNICAL SERVICE REPRESENTATIVE [facility] PreOp Summary Primary Physician: CARINE AMATO MD-GAE Finalized Date/Time: 03/13/21 14:22:39 Pt. Name: YANE REBOLLEDO/Sex: 1970 Female Med Rec #: [id number] Physician: CARINE AMATO MD-GAE Financial #: [id number] Pt. Type: E Room/Bed: [facility]/ Admit/Disch: 03/13/21 12:24:00 - Institution: [facility] Mary [...] on filedocumented in this encounter Care Teams Editorial Cartoonist Relationship Specialty Start Date End Date Reina, ASSOCIATE SCIENTIST [address] [place] [address] PCP - General Nurse Practitioner 11/14/22 10/01/23 documented as of this encounter
--- OUTSIDE RECORDS SUMMARY | 2024-11-09 10:53 | XMS_ITS | Encounter Summary ---
Author Organization [employer] ([place], [place], [place], [place]) Address [address] [place] [address] Care Team Providers Care Supervisor Inspection And Testing Name Role Phone Reina Olmedo APRN Primary Care Provider [phone] [phone] Reason for Visit * Reason Onset Date Comments Medication Refill 02/04/2023 Encounter Details Date Type Department Care Team (Late st Contact Info) Description 02/04/2023 Refill [facility] Primary Care - [address] [address] Reina Olmedo APRN [address] [place] [address] Social History Tobacco Use Types Packs/Day [...] MA - 02/04/2023 4:28 PM EST Refill NICAL ADMINISTRATIVE ASSISTANT documented in this encounter Plan of Treatment Not on file documented as of this encounter Visit Diagnoses Not on filedocumented in this encounter Care Teams Supervisor Inspection And Testing Relationship Specialty Start Date End Date FebReina hancock, WAITSTAFF [address] [place] [address] PCP - General Nurse Practitioner 11/14/22 10/01/23 documented as of this encounter
--- OUTSIDE RECORDS SUMMARY | 2024-11-09 10:53 | XMS_ITS | Encounter Summary ---
Author Organization [employer] ([place], [place], [place], [place]) Address [address] [place] [address] Care Team Providers Care Control Systems Eng Name Role Phone Reina Olmedo DASHAWN Primary Care Provider [phone] -[phone] Encounter Details Date Type Department Care Team (Late st Contact Info) Description 07/27/2020 Transcribed Document [facility] [place] Family Medicine [address] [place] [address] ProviderVeroncia MD [address] [place] [address] Social History Tobacco Use Types [...] 07/27/2020 8:43 EDT Electronically signed by Deyvi [facility] Conversion Steward/Stewardess Wine Cerner at 07/09/2022 12:13 PM CDT documented in this encounter Plan of Treatment Not on file documented as of this encounter Visit Diagnoses Not on filedocumented in this encounter Care Teams Control Systems Eng Relationship Specialty Start Date End Date Reina, DEODORIZER OPERATOR [address] [place] [address] PCP - General Nurse Practitioner 11/14/22 10/01/23 documented as of this encounter
--- OUTSIDE RECORDS SUMMARY | 2024-11-09 10:53 | XMS_ITS | Encounter Summary ---
Author Organization [employer] ([place], [place], [place], [place]) Address [address] [place] [address] Care Team Providers Care Machine Operators Name Role Phone Reina Olmedo ROAD CLEANER Primary Care Provider [phone] [phone] Reason for Visit * Reason Onset Date Comments Medication Refill 02/25/2023 Encounter Details Date Type Department Care Team (Late st Contact Info) Description 02/25/2023 Refill [facility] Primary Care [facility] [address] [place] [address] CLEANER [address] [place] [address] Anxiety and depression Social History [...] depression documented in this encounter Care Teams Machine Operators Relationship Specialty Start Date End Date Reina Olmedo APRN [address] [place] [address] PCP - General Nurse Practitioner 11/14/22 10/01/23 documented as of this encounter
--- OUTSIDE RECORDS SUMMARY | 2024-11-09 10:53 | XMS_ITS | Clinical Summary ---
Author Organization [employer] ([place], [place], [place], [place]) Address [address] [place] [address] Care Team Providers Care Chief Operator Hydroformer Name Role Phone Unavailable Primary Care Provider Unavailabl e Allergies Active Allergy Reactions Criticality Noted Date Comments Egg Hives,Itching,Rash High 01/06/2023 Green Gonzalez Hives,Itching,Rash High 01/06/2023 Hazelnut Hives,Itching,Rash High 01/06/2023 House Dust Mite 01/06/2023 Milk Hives,Itching,Rash High 01/06/2023 Mold Hives,Itching,Rash High 01/06/2023 Peanut Hives,Itching,Rash High 01/06/2023 Tomato Hives,Itching,Rash High 01/06/2023 Tree Pollen Hives,Itching,Rash High 01/06/2023 Woods Cross Hives,Itching,Rash High 01/06/2023 Medications aspirin 81 MG [...] mRNA (PF)(LNP-S BIV ALENT) (Perez Cap) 12YR+ (PFIZER)([id number] 12/27/2022 Covid-19 Vaccine MRNA (PF) 1 2yr+ (Pfizer/[employer])([id number]) 01/26/2021,07/25/2020,06/29/2020 Covid-19 Vaccine MRNA(PF,Premixed)12YR+ (Pfizer/[employer])([id number]) 08/09/2021 Hepatitis A Adult 08/07/2018,01/06/2018 Influenza Four-QIV [...] Date Joshua rded Speak language other than Chilean at home Not on file 04/09/2023 Want [...] - 08/05/2023 10:08 AM EDT Performed at: [facility] [address] [id number] Dining Service Worker: Clive Martinez PhD, Phone: [phone] Reina Olmedo SYSTEM PLANNING ENGINEER LAB BLOOD ORDERABLES Becky l Result Performing Organization Address [facility] Co de Phone Number [facility] * (ABNORMAL) Lipid panel (08/04/2023 2:21 PM EDT) [facility] Cholesterol, Total 153 100 - 199 mg/dL [facility] Triglycerides 236(H) 0 - 149 mg/dL [facility] HDL Cholesterol 46 >39 mg/dL [facility] VLDL Cholesterol Lopez 38 5 - 40 mg/dL [facility] LDL Calculated 69 0 - 99 mg/dL [facility] Blood 08/04/2023 2:21 PM EDT 08/04/2023 Narrative [facility] - 08/05/2023 10:08 AM EDT Performed at: 01 - [facility] [address] [id number] Dining Service Worker: Clive Martinez PhD, Phone: [phone] Reina Olmedo APRN LAB BLOOD ORDERABLES Becky l Result Performing Organization Address [facility] de Phone Number [facility] * HM MAMMOGRAPHY (11/11/2018) Anatomical Region Laterality Modality Other Historical Provider HEALTH MAINTENANCE Final Result from Last 3 Months or Most Recently Relevant to Health Maintenance Insurance [place] [id number]
--- OUTSIDE RECORDS SUMMARY | 2024-11-09 10:53 | XMS_ITS | Encounter Summary ---
Author Organization [employer] ([place], [place], [place], [place]) Address [address] [place] [address] Care Team Providers Care Science Technician Name Role Phone Nelliekarissa Reina Ash APRN Primary Care Provider [phone] [phone] Encounter Details Date Type Department Care Team (Late st Contact Info) Description 08/03/2020 Transcribed Document [facility] [place] Family Medicine [address] [place] [address] ProviderVeronica MD [address] [place] [address] Social History Tobacco Use Types [...] Source : Stated Height Entry Format : Rhea Height, Feet : 5 ft(Converted to: 152 cm, 60 Inch) Height, Inches : 0 Inch(Converted to: 0 ft 0 Inch, 0.00 cm) Clinical Height : 152.4 cm Weight Source : Standing scale Weight Entry Format : Rhea Clinical Dosing Weight : 126.36 kg Weight, Pounds : 278 lb Body Surface Area (BSA) : 2.15 m2 Body Mass Index : 54.4 kg/m2 (>HHI) [place] Body Weight : 45 kg Kathe De [...] De Souza RN - 08/03/2020 8:32 EDT Young Suicide Severity Rating Scale (C-SSRS) CSSRS Past [...] Date/Time : 08/03/2020 7:55 EDT Support Person/Patient Mba Internship : Yes Want Family/Rep/Phys Notified of Admit : No Emergency Contact #1 : Meryl Cervantes Emergency Contact #1 Emergency Contact #1 Relationship : mother Emergency Contact #2 : - Emergency Contact #2 Phone Number : - Emergency Contact #2 Relationship : - Information Obtained From : Patient Primary Language : Urdu Preferred Communication Mode : Verbal Communication Barrier : None Warehouse Logistics Manager Needed : No Kathe De Souza RN [...] form. Electronically signed by Tayler Carnes Conversion Emergency Room Registered Nurse Cerner at 07/09/2022 12:35 PM CDT documented in this encounter Plan of Treatment Not on file documented as of this encounter Visit Diagnoses Not on filedocumented in this encounter Care Teams Science Technician Relationship Specialty Start Date End Date Reina Olmedo, AIR QUALITY ENGINEER [address] [place] [address] PCP - General Nurse Practitioner 11/14/22 10/01/23 documented as of this encounter
--- OUTSIDE RECORDS SUMMARY | 2024-11-09 10:53 | XMS_ITS | Encounter Summary ---
Author Organization [employer] ([place], [place], [place], [place]) Address [address] [place] [address] Care Team Providers Care Surgery Assistant Name Role Phone Reina Olmedo SURGICAL FIRST ASSISTANT Primary Care Provider [phone] [phone] Reason for Visit * Reason Onset Date Comments Medication Refill 11/30/2022 Encounter Details Date Type Department Care Team (Late st Contact Info) Description 11/30/2022 Refill [facility] Primary Care [address] [address] Reina Olmedo, SURGICAL FIRST ASSISTANT [address] [place] [address] Social History Tobacco Use Types [...] on filedocumented in this encounter Care Teams Surgery Assistant Relationship Specialty Start Date End Date Reina Olmedo SURGICAL FIRST ASSISTANT [address] [place] [address] PCP - General Nurse Practitioner 11/14/22 10/01/23 documented as of this encounter
--- OUTSIDE RECORDS SUMMARY | 2024-11-09 10:53 | XMS_ITS | Encounter Summary ---
Author Organization [employer] ([place], [place], [place], [place]) Address [address] [place] [address] Care Team Providers Care Processing Technician Name Role Phone Reina Olmedo DASHAWN Primary Care Provider [phone] [phone] Encounter Details Date Type Department Care Team (Late st Contact Info) Description 07/27/2020 Transcribed Document [facility] [place] Family Medicine [address] [place] [address] ProviderVeronica MD [address] [place] [address] Social History Tobacco Use Types [...] Veronica ProviderMD - 07/27/2020 2:48 PM CDT [facility] [place] [address] YANE REBOLLEDO :1970 Visit Time:07/27/2020 Your Visit Summary Your Care Team Admitting Physician - FABIENNE LU MD-CAR Attending Physician - FABIENNE LU MD-CAR Primary Care Physician - WILL BRIDGES, -[facility] Referring Physician - FABIENNE LU MD-CAR Your [...] weeks Comments Follow-up as instructed Where: [address] [facility] [place] [address]- Medications What How Much When Instructions Next [...] to thoroughly wash your hands, use hand ethylene plant helper. While handwashing is best, hand ethylene plant helper helps to reduce the spread of germs when you are out and about. Have hand ethylene plant helper in several locations so you can [...] keep people from also getting sick. Don???t [place] It! Sneezing this time of year is [...] different for every person. A diet and medicaid collection specialist (registered dietitian) can help you make [...] of carbohydrates: ? hamburger bun or ?? Italian muffin. ? oz (15 mL) syrup. ? [...] foods that contain carbohydrates: ??? Rice. ??? [place]. ??? Milk. ??? Strawberries. 2. Calculate how [...] manage your diabetes. ??? A diet and medicaid collection specialist (registered dietitian) can help you make a meal plan and calculate how many carbohydrates you should have at each meal and snack. This information is not intended to replace advice given to you by your health care provider. Make sure you discuss any questions you have with your health care provider. Document Revised: 10/02/2017 Document Reviewed: 08/21/2016 [employer] Patient Education ?? 2020 [employer] Diabetes Mellitus and Nutrition, Adult When [...] that you work with a diet and medicaid collection specialist (dietitian) to make a meal plan [...] provider. ??? Work with a counselor or family life educator to identify strategies to manage stress and any emotional and social challenges. Questions to ask a health care provider ??? Do I need to meet with a family life educator? Do I need to meet with a dietitian? What number can I call if I have questions? When are the best times to check my blood glucose? Where to find more information: ??? [place] Diabetes Association: diabetes.org ??? Academy of Nutrition and Dietetics: www.eatright.org ??? National [place] of Diabetes and Digestive and Kidney Diseases (NIH): www.niddk.nih.gov Summary ??? A healthy meal plan will help you control your blood glucose and maintain a healthy lifestyle. ??? Working with a diet and medicaid collection specialist (dietitian) can help you make a [...] provider. Document Revised: 02/20/2018 Document Reviewed: 04/14/2017 [employer] Patient Education ?? 2020 [employer] Coronary Angiogram A coronary angiogram is [...] including vitamins, herbs, eye drops, creams, and kwdv-sqh-gmawyfb medicines. ??? Any problems you or family [...] do not normally take it. ??? Taking ogpy-ebx-cfwswte medicines, vitamins, herbs, and supplements. General instructions [...] provider. Document Revised: 09/30/2019 Document Reviewed: 09/30/2019 [employer] Patient Education ?? 2020 [employer] Moderate Conscious Sedation, Adult, Care After [...] you are awake and alert. ??? Take rfvp-qql-mykpjzv and prescription medicines only as told by [...] provider. Document Revised: 02/20/2018 Document Reviewed: 06/29/2016 [employer] Patient Education ?? 2020 [employer]. Radial Site Care This sheet gives you [...] these instructions at home: Medicines ??? Take utgb-mdj-wwpfivo and prescription medicines only as told by your health care provider. Insertion site care ??? Follow instructions from your health care provider about how to take care of your insertion site. Make sure you: ? Wash your hands with soap and water before you change your bandage (dressing). If soap and water are not available, use hand ethylene plant helper. ? Change your dressing as told [...] provider. Document Revised: 04/15/2018 Document Reviewed: 04/15/2018 [employer] Patient Education ?? 2020 [employer] Transradial Angiogram A transradial angiogram is [...] including vitamins, herbs, eye drops, creams, and duhz-mhi-srukxjh medicines. ??? Any problems you or family [...] tells you to take them. ??? Taking afnp-eev-hwefoww medicines, vitamins, herbs, and supplements. Exams and [...] provider. Document Revised: 02/01/2019 Document Reviewed: 02/01/2019 [employer] Patient Education ?? 2020 [employer] Emergency Awareness and Preventative Care STROKE [...] Assistance with quitting is available by contacting 6-726-ODBHNOW. This is a free resource providing counseling, [...] was given the opportunity to ask questions. Patient/Police And Fire Dispatcher Name: Patient/Police And Fire Dispatcher Signature: Relationship to Patient: Clinician/Hospital Police And Fire Dispatcher Signature: Date: documented in this encounter Plan of Treatment Not on file documented as of this encounter Visit Diagnoses Not on filedocumented in this encounter Care Teams Processing Technician Relationship Specialty Start Date End Date Reina, HELIUM ARC WELDER [address] [place] [address] PCP - General Nurse Practitioner 11/14/22 10/01/23 documented as of this encounter
--- OUTSIDE RECORDS SUMMARY | 2024-11-09 10:53 | XMS_ITS | Encounter Summary ---
Author Organization [employer] ([place], [place], [place], [place]) Address [address] [place] [address] Care Team Providers Care Hydro Pneumatic Tester Name Role Phone Nelliekarissa Reina Nilsa TAMEZ Primary Care Provider [phone] [phone] Encounter Details Date Type Department Care Team (Late st Contact Info) Description 08/04/2020 Transcribed Document [facility] [address] [place] [address] ProviderVeronica MD [address] [place] [address] Social History Tobacco Use Types [...] and water are not available, use hand tennis court attendant. ? Change or remove your dressing as [...] Do not have sex. Medicines ??? Take ovsa-uhw-ntpcwbw and prescription medicines only as told by your health care provider. ??? Ask your health care provider if the medicine prescribed to you: ? Requires you to avoid driving or using heavy machinery. ? Can cause constipation. You may need to take actions to prevent or treat constipation, such as: ? Drink enough fluid to keep your urine pale yellow. ? Take dgrw-ncl-dasyurh or prescription medicines. ? Eat foods that [...] provider. Document Revised: 03/01/2019 Document Reviewed: 03/01/2019 [employer] Patient Education ? 2020 [employer]. Total Laparoscopic Hysterectomy, Care After This [...] and water are not available, use hand tennis court attendant. ? Change your dressing as told by [...] by your health care provider. ??? Take bqwd-dqd-cefihag and prescription medicines only as told by [...] urine clear or pale yellow. ? Take wpij-tvk-cjfazbz or prescription medicines. ? Eat foods that [...] provider. Document Revised: 02/20/2018 Document Reviewed: 05/21/2017 [employer] Patient Education ? 2020 [employer]. documented in this encounter Plan of Treatment Not on file documented as of this encounter Visit Diagnoses Not on filedocumented in this encounter Care Teams Hydro Pneumatic Tester Relationship Specialty Start Date End Date Reina Olmedo, INFANT AND TODDLER TEACHER [address] [place] [address] PCP - General Nurse Practitioner 11/14/22 10/01/23 documented as of this encounter
--- OUTSIDE RECORDS SUMMARY | 2024-11-09 10:53 | XMS_ITS | Encounter Summary ---
Author Organization [employer] ([place], [place], [place], [place]) Address [address] [place] [address] Care Team Providers Care Solaris Administrator Name Role Phone Reina Olmedo APRN Primary Care Provider [phone] [phone] Encounter Details Date Type Department Care Team (Late st Contact Info) Description 12/02/2019 Transcribed Document [facility] [place] Family Medicine [address] [place] [address] ProviderVeronica MD [address] [place] [address] Social History Tobacco Use [...] YANE REBOLLEDO/Sex: 1970 Female Med Rec #: [id number] Physician: YOU HAWTHORNE MD-OBG Financial #: [id number] Pt. Type: O Room/Bed: [facility]/ Admit/Disch: 12/02/19 11:24:00 - Institution: [facility] OR PACU Case Times Entry 1 In PACU I 12/02/19 16:13:00 Ready for PACU 12/02/19 17:05:00 Discharge Discharge from PACU 12/02/19 17:05:00 I Last Modified By: Helen Francis RN 12/02/19 17:09:16 [facility] OR PACU Case Times Audit 12/02/19 17:09:16 Slot Machine Floor Person: SXPOWERS Modifier: SXPOWERS <+> 1 Ready for PACU Discharge <+> 1 Discharge from PACU I Finalized By: Helen Francis, RN Document Signatures Signed By: Helen Francis RN 12/02/19 17:09 documented in this encounter Plan of Treatment Not on file documented as of this encounter Visit Diagnoses Not on filedocumented in this encounter Care Teams Solaris Administrator Relationship Specialty Start Date End Date Reina Olmedo, LAN ADMINISTRATOR [address] [address] PCP - General Nurse Practitioner 11/14/22 10/01/23 documented as of this encounter
--- OUTSIDE RECORDS SUMMARY | 2024-11-09 10:53 | XMS_ITS | Encounter Summary ---
Author Organization [employer] ([place], [place], [place], [place]) Address [address] [place] [address] Care Team Providers Care Director Of Family Service Center Name Role Phone Reina Olmedo APRN Primary Care Provider [phone] [phone] Encounter Details Date Type Department Care Team (Late st Contact Info) Description 03/01/2022 Telephone [facility] Primary Care - [place] [address] [place] [address] Reina Olmedo APRN [address] [place] [address] Social History Tobacco Use Types [...] - 03/01/2022 4:11 PM EST Notified confirmed ETICS SUPERVISOR * Telephone Encounter - Reina Olmedo APRN - 03/01/2022 3:38 PM EST I will change her to vipin for temporary ETICS SUPERVISOR * Telephone Encounter - Charlotte Mckee - 03/01/2022 12:33 PM EST Patient called in states Christopher is out nationwide- back order Pharmacy does not know when they will have it, was advised that other pharmacies do not have it at this time. Would like to see what Shara TAMEZ Recommends either making changes to her current medication or providing alternative Please advise ETICS SUPERVISOR documented in this encounter Plan of Treatment Not on file documented as of this encounter Visit Diagnoses Not on filedocumented in this encounter Care Teams Director Of Family Service Center Relationship Specialty Start Date End Date Reina Olmedo APRN [address] [place] [address] PCP - General Nurse Practitioner 11/14/22 10/01/23 documented as of this encounter
--- OUTSIDE RECORDS SUMMARY | 2024-11-09 10:53 | XMS_ITS | Encounter Summary ---
Author Organization [employer] ([place], [place], [place], [place]) Address [address] [place] [address] Care Team Providers Care Magnetic Locater Name Role Phone NellieReina hancock Nilsa TAMEZ Primary Care Provider +1 [phone] Encounter Details Date Type Department Care Team (Late st Contact Info) Description 07/27/2020 Transcribed Document [facility] Family Medicine [address] [place] [address] ProviderVeronica MD [address] [place] [address] Social History Tobacco Use Types [...] EDT Description of Event : Return from cathodic protection technician per stretcher awake and alert, skin w/d, mother here at bedside. Has TR pressure band right radial artery-CDI, no swelling, no bleeding, no pain. Cap refill less than 2 seconds right fingers. Has arterial splint in place right wrist-returns understanding for use. Food and drink ordered. LETY WASSERMAN, RN - 07/27/2020 11:42 EDT Electronically signed by Deyvi [facility] Conversion Engineering Research Manager Cerner at 07/09/2022 12:14 PM CDT documented in this encounter Plan of Treatment Not on file documented as of this encounter Visit Diagnoses Not on filedocumented in this encounter Care Teams Magnetic Locater Relationship Specialty Start Date End Date Reina Olmedo, MANAGER FREELANCE [address] [place] [address] PCP - General Nurse Practitioner 11/14/22 10/01/23 documented as of this encounter
--- OUTSIDE RECORDS SUMMARY | 2024-11-09 10:53 | XMS_ITS | Encounter Summary ---
Author Organization [employer] ([place], [place], [place], [place]) Address [address] [place] [address] Care Team Providers Care Film Painter Name Role Phone Reina Olmedo APRN Primary Care Provider [phone] [phone] Encounter Details Date Type Department Care Team (Late st Contact Info) Description 08/03/2020 Transcribed Document [facility] [place] Family Medicine [address] [place] [address] ProviderVeronica MD [address] [place] [address] Social History Tobacco Use Types [...] ANGÉLICA REBOLLEDO/Sex: 1970 Female Med Rec #: [id number] Physician: YOU HAWTHORNE MD-OBG Financial #: [id number] Pt. Type: O Room/Bed: [facility] Admit/Disch: 08/03/20 03:59:00 - Institution: E IntraOp Case Attendance Entry 1 Entry 2 Entry 3 Case Attendee YOU HAWTHORNE Holliday, Stewart R, RN LOVELY VELEZ PA-C MD-OBG Role Performed Surgeon/Proceduralist, Pile Driving Technician, First Physician licensed nursing assistant First Time In 08/03/20 09:42:00 08/03/20 [...] BREANNA HOWE TAYLOR, SARAH, ST Sharp, Mark TELEVISION DIRECTOR Role Performed TELEVISION DIRECTOR/Nurse Ophthalmic Photographer Scrub, First Scrub, Second Time In 08/03/20 [...] E IntraOp Case Attendance Audit 08/03/20 11:31:44 Sport Shoe Spike Assembler: JERONIMO Modifier: JERONIMO 1 <+> Time In [...] [facility] Case Times Audit 08/03/20 11:31:43 Sport Shoe Spike Assembler: WALTERIDSR Modifier: HOLLIDSR <+> 1 Out Room Time <+> 1 Stop Time 08/03/20 11:25:20 Sport Shoe Spike Assembler: HOLLIDSR Modifier: HOLLIDSR <+> 1 Stop Time 08/03/20 10:06:00 Sport Shoe Spike Assembler: WALTERIDSR Modifier: HOLLIDSR <+> 1 Start Time [...] 10:06:35 [facility] Cautery Audit 08/03/20 10:06:35 Sport Shoe Spike Assembler: JERONIMO Modifier: HOLLIDSR 1 <*> Cut Setting [...] [facility] Intra[facility] Counts Final Audit 08/03/20 11:11:48 Sport Shoe Spike Assembler: WALTERADIN Modifier: WALTERIDSR 1 <*> Procedure Abdominal [...] Foster Avilez, Accompanied by RN, BREANNA HOWE, TELEVISION DIRECTOR Last Modified By: Foster Avilez RN 08/03/20 [...] Yes Assessment Complete Fire Risk Foster Avilez ballet company member Verified By Fire Risk 08/03/20 09:34:00 Assessment Verified Date/Time Fire Risk Standard Fire Yes Safety Precautions Followed Last Modified By: Foster Avilez RN 08/03/20 09:34:03 [facility] IntraOp General Case Development And Housing Director 1 Case Information OR OR 07 [facility] Case Level 1 Room Verified Yes Wound Class II - Clean-Contaminated Specialty Gynecology Anesthesia Type General ASA Class 3 Diagnosis Preop Diagnosis pelvic pain, AUB Postop Diagnosis refer to MD notes Last Modified By: Foster Avilez RN 08/03/20 10:06:54 [facility] General Case Data Audit 08/03/20 10:06:54 Sport Shoe Spike Assembler: JERONIMO Modifier: JERONIMO <+> 1 ASA Class [...] 0.5% w/ epinephrine 1:200,000 30ml vial - [id number] Route of local Administration Dose Dose 30 [...] on filedocumented in this encounter Care Teams Film Painter Relationship Specialty Start Date End Date Reina Olmedo, SENIOR GAMES TECHNICIAN [address] [place] [address] PCP - General Nurse Practitioner 11/14/22 10/01/23 documented as of this encounter
--- OUTSIDE RECORDS SUMMARY | 2024-11-09 10:53 | XMS_ITS | Encounter Summary ---
Author Organization [employer] ([place], [place], [place], [place]) Address [address] [place] [address] Care Team Providers Care Department Store Salesperson Name Role Phone NellieReina hancock Nilsa TAMEZ Primary Care Provider [phone] [phone] Encounter Details Date Type Department Care Team (Late st Contact Info) Description 07/27/2020 Transcribed Document [facility] [place] [facility] [place] [place] [address] ProviderVeronica MD [address] [place] [address] Social History Tobacco Use Types [...] PROCEDURE: Standard left heart catheterization technique. A 5/6-South African sheath was placed in the right radial [...] at low cardiac risk for gynecological surgery. /[id number] Jun Hung MD SSL/AQ / SSL / MODL /[id number] CC: MD Dr. Lilia Ricardo documented in this encounter Plan of Treatment Not on file documented as of this encounter Visit Diagnoses Not on filedocumented in this encounter Care Teams Department Store Salesperson Relationship Specialty Start Date End Date FebReina hancock, CORE JAVA SOFTWARE ENGINEER [address] [place] [address] PCP - General Nurse Practitioner 11/14/22 10/01/23 documented as of this encounter
--- OUTSIDE RECORDS SUMMARY | 2024-11-09 10:53 | XMS_ITS | Encounter Summary ---
Author Organization [employer] ([place], [place], [place], [place]) Address [address] [place] [address] Care Team Providers Care Biodiesel Product Manager Name Role Phone Reina Olmedo APRN Primary Care Provider [phone] Encounter Details Date Type Department Care Team (Late st Contact Info) Description 12/02/2019 Transcribed Document [facility] [place] Family Medicine [address] [place] [address] ProviderVeronica MD [address] [place] [address] Social History Tobacco Use Types [...] YANE REBOLLEDO/Sex: 1970 Female Med Rec #: [id number] Physician: YOU HAWTHORNE MD-OBG Financial #: [id number] Pt. Type: O Room/Bed: [facility]/ Admit/Disch: 12/02/19 11:24:00 - Institution: [facility] PreOp Case Times Entry 1 In Preop 12/02/19 11:40:00 Ready for Holding n/a Room Patient Ready for 12/02/19 13:11:00 Surgery Patient Out of Preop 12/02/19 15:14:00 Patient Out of n/a Holding Room Last Modified By: CRISTINA JUAREZ RN 12/02/19 16:00:45 [facility] PreOp Case Times Audit 12/02/19 16:00:45 Fur Cutter: YULI Modifier: [id number] <+> 1 Patient Out of Preop Finalized By: CRISTINA JUAREZ, RN Document Signatures Signed By: CRISTINA JUAREZ RN 12/02/19 16:01 documented in this encounter Plan of Treatment Not on file documented as of this encounter Visit Diagnoses Not on filedocumented in this encounter Care Teams Biodiesel Product Manager Relationship Specialty Start Date End Date Reina Olmedo, WINDER HELPER [address] [place] [address] PCP - General Nurse Practitioner 11/14/22 10/01/23 documented as of this encounter
--- OUTSIDE RECORDS SUMMARY | 2024-11-09 10:54 | XMS_ITS | Referral Summary ---
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 Name Role Phone Unavailable Primary Care Provider Unavailabl e Allergies Active Allergy Reactions Criticality Noted Date Comments Egg Hives,Itching,Rash High 01/06/2023 Green Gonzalez Hives,Itching,Rash High 01/06/2023 Hazelnut Hives,Itching,Rash High 01/06/2023 House Dust Mite 01/06/2023 Milk Hives,Itching,Rash High 01/06/2023 Mold Hives,Itching,Rash High 01/06/2023 Peanut Hives,Itching,Rash High 01/06/2023 Tomato Hives,Itching,Rash High 01/06/2023 Tree Pollen Hives,Itching,Rash High 01/06/2023 [place] Hives,Itching,Rash High 01/06/2023 Medications aspirin 81 MG EC tablet Take 1 tablet (81 mg total) by mouth daily. Active betamethasone dipropionate (DIPROSONE) 0.05 % lotion SMARTSIG:Topical 11/05/19 Active triamcinolone-dime th-silicone 0.1-2 % Kit 08/14/19 Active cetirizine (ZyrTEC) 10 MG tablet Take 1 tablet (10 mg total) by mouth 2 (two) times daily. 10/04/19 23 Active ibuprofen (ADVIL,MOTRIN) 200 MG tablet 11/06/19 [...] mRNA (PF)(LNP-S BIV ALENT) (Perez Cap) 12YR+ (PFIZER)([id number] 12/27/2022 Covid-19 Vaccine MRNA (PF) 1 2yr+ (Pfizer/Lattice Power)([id number]) 01/26/2021,07/25/2020,06/29/2020 Covid-19 Vaccine MRNA(PF,Premixed)12YR+ (Pfizer/Lattice Power)([id number]) 08/09/2021 Hepatitis A Adult 08/07/2018,01/06/2018 Influenza Four-QIV [...] Date Joshua rded Speak language other than Austrian at home Not on file 04/09/2023 Want [...] AM EDT Performed at: 01 - [facility] [address] [id number] Magistrate Assistant: Clive Martinez PhD, Phone: [phone] Reina Olmedo APRN LAB BLOOD ORDERABLES Becky l Result Performing Organization Address [facility] de Phone Number [facility] * (ABNORMAL) Lipid panel (08/04/2023 2:21 PM EDT) [facility] Cholesterol, Total 153 100 - 199 mg/dL [facility] Triglycerides 236(H) 0 - 149 mg/dL [facility] HDL Cholesterol 46 >39 mg/dL [facility] VLDL Cholesterol Lopez 38 5 - 40 mg/dL [facility] LDL Calculated 69 0 - 99 mg/dL [facility] Blood 08/04/2023 2:21 PM EDT 08/04/2023 Narrative [facility] - 08/05/2023 10:08 AM EDT Performed at: 01 - [facility] [address] [id number] Magistrate Assistant: Clive Martinez PhD, Phone: [phone] Reina Olmedo APRN LAB BLOOD ORDERABLES Becky l Result Performing Organization Address [facility] Co de Phone Number [facility] * HM MAMMOGRAPHY (11/11/2018) Anatomical Region Laterality Modality Other Historical Provider HEALTH MAINTENANCE Final Result from Last 3 Months or Most Recently Relevant to Health Maintenance Insurance [facility]
--- OUTSIDE RECORDS SUMMARY | 2024-11-09 10:54 | XMS_ITS | Encounter Summary ---
Author Organization [employer] ([place], [place], [place], [place]) Address [address] [place] [address] Care Team Providers Care Digital Media Director Name Role Phone NellieReina hancock Nilsa TAMEZ Primary Care Provider [phone] Reason for Visit * Reason Onset Date Comments Medication Refill 07/23/2023 Encounter Details Date Type Department Care Team (Late st Contact Info) Description 07/23/2023 Refill [facility] Cardiology - [address] [place] [address] Rosa Jean-Baptiste MD [address] [place] [address] Social History Tobacco Use Types Packs/Day Years [...] Date Joshua rded Speak language other than Burkinan at home Not on file 04/09/2023 Want [...] on filedocumented in this encounter Care Teams Digital Media Director Relationship Specialty Start Date End Date Reina Olmedo, [employer] [address] [place] [address] PCP - General Nurse Practitioner 11/14/22 10/01/23 documented as of this encounter
[2024-11-09 12:00] VITALS: BP 103/77; PULSE 88; PULSE 90; RESP 16; TEMP 37; O2SAT 95
[2024-11-09 12:09] LABS: POC Glucose,Bedside 88 (70-110)
[2024-11-09 12:32] VITALS: BMI 41.8
--- NOTE | 2024-11-09 12:39 | HMH.ENDO.CON ---
History of Present Illness *Admission Date: 11/09/24 *History of present illness: Ms. Oconnor 53-year-old female with a past medical history of morbid obesity, lymphedema, osteoarthritis, type 2 diabetes, anxiety and depression, recent history of gastric bypass is currently admitted for hypoglycemia . Endocrinology was consulted as patient continued to have persistent hyperglycemia. She mentioned that she was in her car yesterday having her dinner when she felt like she was going to pass out. She was then brought to the ER and was found to have a blood sugar of 46. She continued to have another episode of hypoglycemia and was started on D5 drip. Patient mentioned that she underwent gastric bypass and sleeve on April 19, 2024. Post surgery she lost ~100 pounds. She has history of type 2 diabetes, postsurgery her regimen was titrated down however she continues to take glimepiride 1 mg every day. Patient mentioned that she received nutrition education on the diet she needs to follow-up postsurgery and she is trying to adhere to it. This is however questionable as her mother during the visit mentioned that patient eat what ever she likes. Labs presentation with hypokalemia, hypoglycemia hypomagnesemia, hypocalcemia, low total protein which is consistent with patient not adhering to diet or multivitamins as required post bariatric surgery. [facility] Disclaimer: The information contained in this section may have been updated after the patient was seen, as this information can be updated by other users. Medical History (Updated 11/09/24 @ 02:05 by Kilo Diehl MD) Rib pain on left side Hypoglycemia PTSD (post-traumatic stress disorder) Generalized anxiety disorder Allergic rhinitis Discoloration and thickening of nails both feet Decreased sensation of foot Other specified symptoms and signs involving the circulatory and respiratory systems Keratosis Callus of heel Bluish skin discoloration Cold extremities Decreased pedal pulses Infestation by bed bug Numbness and tingling of both lower extremities Vomiting Candidal intertrigo Lumbago with sciatica Cutaneous candidiasis Lymphedema Postmenopausal Osteoarthritis Admitted for observation Lymphedema of leg Bipolar 2 disorder, major depressive episode BMI 50.0-59.9, adult Vitamin D deficiency Anxiety and depression GERD (gastroesophageal reflux disease) Hypothyroid HLD (hyperlipidemia) Seasonal allergies HTN (hypertension) Diabetes Cellulitis Candidal intertrigo Left knee pain Right knee pain Surgical History (Updated 11/09/24 @ 12:45 by Margaret Campbell MD) History of bariatric surgery H/O skin graft History of partial hysterectomy Family History Brother Asthma Diabetes Grandfather Asthma Cancer Mother Coronary artery disease Grandmother Diabetes Other Heart attack Hyperlipidemia Hypertension Thyroid disorder Social History (Updated 11/08/24 @ 22:31 by Alva Fontaine RN) Smoking Status: Never smoker how long ago did patient quit smokin years ago alcohol intake: never substance use type: denies use current occupational status: unemployed Travel in the last 8 weeks?: None marital status: legally service: No intermediate: No current occupational exposures/hazards: No Hx Recent Travel: No Review of Systems *Neurologic Neurologic: Reports as per HPI Exam Data for Last 24 hours Vital signs and Labs for Last 24 Hours: Temp Pulse Resp BP Pulse Ox O2 Del Method 98.4 F 77 16 109/64 L 100 Room Air 11/09/24 08:00 11/09/24 08:00 11/09/24 08:00 11/09/24 08:00 11/09/24 08:00 11/09/24 11:00 Laboratory Results - last 24 hr 11/08/24 18:50: WBC 3.7 L, RBC 3.60 L, Hgb 10.8 L, Hct 31.6 L, MCV 87.8, MCH 30.0, MCHC 34.2, RDW 16.5, Plt Count 245, MPV 8.5, Neut % (Auto) 47.3, Lymph % (Auto) 40.9, Mineral % (Auto) 10.1 H, Eos % (Auto) 1.1, Baso % (Auto) 0.3, Neut # (Auto) 1.7 L, Lymph # (Auto) 1.5, Mineral # (Auto) 0.4, Eos # (Auto) 0.0, Baso # (Auto) 0.0, VBG pH 7.40, VBG pCO2 44.2, VBG pO2 46.4 H, VBG HCO3 26.7, VBG Total CO2 28.1 H, VBG O2 Saturation 78.1 H, VBG Base Excess 1.9, VBG Lactic Acid 1.1, Sodium 136, Potassium 2.4 L*, Chloride 101, Carbon Dioxide 29, Anion Gap 8.4, BUN 19 H, Creatinine 1.00, Estimated Creat Clear 48, Estimated GFR 58 L, Est GFR ( Amer) 71, Glucose 46 L*, Calcium 7.8 L, Magnesium 1.4 L, Total Bilirubin 0.7, AST 47 H, ALT 33, Alkaline Phosphatase 113, Troponin I < 0.01, Total Protein 5.2 L, Albumin 2.5 L, Globulin 2.7, Albumin/Globulin Ratio 0.9 L 11/08/24 21:50: Troponin I < 0.01 11/08/24 22:12: POC Glucose 65 L 11/09/24 00:05: POC Glucose 136 H 11/09/24 01:23: Troponin I < 0.01 11/09/24 05:46: WBC 3.9 L, RBC 3.42 L, Hgb 10.0 L, Hct 30.4 L, MCV 88.9, MCH 29.2, MCHC 32.9, RDW 16.9, Plt Count 247, MPV 8.9, Neut % (Auto) 49.5, Lymph % (Auto) 37.3, Mineral % (Auto) 10.5 H, Eos % (Auto) 2.1, Baso % (Auto) 0.3, Neut # (Auto) 1.9, Lymph # (Auto) 1.5, Mineral # (Auto) 0.4, Eos # (Auto) 0.1, Baso # (Auto) 0.0, Sodium 140, Potassium 2.5 L*, Chloride 108 H, Carbon Dioxide 27, Anion Gap 7.5, BUN 18 H, Creatinine 1.00, Estimated Creat Clear 45, Estimated GFR 58 L, Est GFR ( Amer) 71, Glucose 43 L*, Calcium 7.5 L, Magnesium 1.9 D, Total Bilirubin 0.4, AST 45 H, ALT 33, Alkaline Phosphatase 100, Total Protein 4.7 L, Albumin 2.2 L D, Globulin 2.5, Albumin/Globulin Ratio 0.9 L 11/09/24 06:30: POC Glucose 94 11/09/24 08:22: Urine Color Yellow, Urine Appearance Clear, Urine pH 6.0, Ur Specific [place] 1.020, Urine Protein Negative, Urine Glucose (UA) Negative, Urine Ketones Trace, Urine Blood Negative, Urine Nitrate Negative, Urine Bilirubin 1+ A, Urine Urobilinogen 0.2, Ur Leukocyte Esterase 1+ A, Urine RBC None, Urine WBC 50-100, Ur Squamous Epith Cells 3-5, Urine Bacteria Trace 11/09/24 08:37: POC Glucose 57 L 11/09/24 11:57: POC Glucose 88 I & O for Last 24 hours: Intake & Output 11/06/24 11/07/24 11/08/24 11/09/24 23:59 23:59 23:59 23:59 Intake Total 250 / 250 1656.667 / 1656.667 Output Total 400 / 400 Balance 250 / 250 1256.667 / 1256.667 Weight 216 lb 2 oz 213 lb 1 oz Constitutional Constitutional: no acute distress and morbidly obese *Routine HEENT Exam Head: Present normocephalic; Absent facial swelling *Routine Respiratory Exam Respiratory: Present able to speak in complete sentences; Absent respiratory distress *Routine Cardiovascular Exam Cardiovascular: Present RRR *Routine Extremities Exam Extremities: Present edema *Routine Neurological Exam Neurological: Present alert and oriented X3 Routine Psychiatric Exam Psychiatric: Present normal affect and normal thought process Meds Home Medications and Allergies Home Medications ?Medication ?Instructions ?Recorded ?Confirmed ?Type aspirin 81 mg tablet,delayed 81 mg PO DAILY 09/08/23 11/08/24 History release (Adult Low Dose Aspirin) lancets 28 gauge (FreeStyle #100 ea 09/08/23 11/08/24 History Lancets) blood sugar diagnostic (FreeStyle #100 ea 10/17/23 11/08/24 Rx Lite Strips) glimepiride 1 mg tablet 1 mg PO DAILY #90 tabs 05/14/24 11/08/24 Rx hydroxyzine HCl 50 mg tablet 100 mg (2 x 50 mg) PO HS 90 days 05/14/24 11/08/24 Rx #180 tabs levocetirizine 5 mg tablet 5 mg PO DAILY 05/14/24 11/08/24 History losartan 50 mg-hydrochlorothiazide 1 tab PO BID 90 days #180 tabs 05/14/24 11/08/24 Rx 12.5 mg tablet omeprazole 40 mg capsule,delayed 40 mg PO DAILY #90 caps 05/14/24 11/08/24 Rx release simvastatin 40 mg tablet 40 mg PO HS #90 tabs 02/21/25 08/18/25 Rx metoprolol tartrate 25 mg tablet 25 mg PO BID #180 tabs 06/15/24 11/08/24 Rx trazodone 100 mg tablet 100 mg PO DAILY #30 tabs 08/30/24 11/08/24 Rx duloxetine 60 mg capsule,delayed 60 mg PO BID 90 days #180 caps 09/27/24 11/08/24 Rx release Diabetic Shoes (DME) #1 ea 09/28/24 11/08/24 Rx cholecalciferol (vitamin D3) 125 125 mcg PO DAILY 11/08/24 11/08/24 History mcg (5,000 unit) tablet (Vitamin D3) citalopram 40 mg tablet 40 mg PO HS 11/08/24 11/08/24 History ferrous sulfate 325 mg (65 mg 325 mg PO BID 11/08/24 11/08/24 History iron) tablet (Iron (ferrous sulfate)) lamotrigine 25 mg tablet (Lamictal) 100 mg PO DAILY 11/08/24 11/09/24 History levothyroxine 137 mcg tablet 137 mcg PO 0700 11/08/24 11/09/24 History montelukast 10 mg tablet 10 mg PO HS 11/08/24 11/08/24 History amitriptyline 50 mg tablet 50 mg PO HS 11/09/24 11/09/24 History triamcinolone acetonide 0.1 % 1 applic topical BIDP PRN FLARES 11/09/24 11/09/24 History topical ointment New Prescriptions to Start Prescriptions: Allergies Allergy/AdvReac Type Severity Reaction Status Date / Time milk AdvReac Mild Rash Verified 10/13/24 10:40 Assessment and Plan *Assessment and plan (1) Hypoglycemia: Status: Acute Category: Medical Code(s): E16.2 - Hypoglycemia, unspecified Plan: - Patient mentioned that she underwent ([id number] bypass and sleeve gastrectomy) on Apr 19, 2024. - She mentioned that she met with a dietitian postsurgery and was informed as to the specific diet she needs to follow. And she has been trying to adhere to it. - Given recent history of bariatric surgery, most likely her cause of hypoglycemia is due to it. - Hold D5 drip and recommended to check for C-peptide, insulin, pro-insulin, BHB, BMP levels if her blood glucose is less than 55. - Do not correct blood sugar before collecting the samples for the above labs. Check BG hrly if BG < 70 and collect labs once <55. - Educated patient to avoid simple carbs and to have high fiber meals split in 4-5 times in a day. - Recommend nutrition education on examples of complex carbs that patient needs to take. - Avoid correcting hypoglycemia with simple carbs, which can cause rebound hypoglycemia. - Will follow-up outpatient in 2 weeks - Dexcom G7 sample provided to the patient. Sensor lot number# [id number], reverberatory furnace supervisor lot number# [id number] (2) History of bariatric surgery: Status: Acute Category: Surgical Code(s): Z98.84 - Bariatric surgery status Plan: Labs consistent with hypokalemia, hypoglycemia hypomagnesemia, hypocalcemia, low total protein. Replace electrolytes as needed. Patient needs to adhere to multivitamins and diet protocol post-bariatric surgery. Results Labs 11/09/24 05:46 11/09/24 12:15 labs: Diabetes panel 11/08/24 11/09/24 18:50 05:46 Creatinine 1.00 1.00 Glucose 46 L* 43 L* Calcium panel 11/08/24 11/09/24 18:50 05:46 Calcium 7.8 L 7.5 L Magnesium 1.4 L 1.9 D Alkaline Phosphatase 113 100 Albumin 2.5 L 2.2 L D Comprehensive Metabolic Panel 11/08/24 11/09/24 18:50 05:46 Sodium 136 140 Potassium 2.4 L* 2.5 L* Chloride 101 108 H Carbon Dioxide 29 27 Anion Gap 8.4 7.5 BUN 19 H 18 H Creatinine 1.00 1.00 Estimated Creat Clear 48 45 Est GFR ( Amer) 71 71 Glucose 46 L* 43 L* AST 47 H 45 H ALT 33 33 Alkaline Phosphatase 113 100 Total Protein 5.2 L 4.7 L Albumin 2.5 L 2.2 L D Globulin 2.7 2.5 Albumin/Globulin Ratio 0.9 L 0.9 L
[2024-11-09 12:43] LABS: Anion Gap 10.9 mEq/L (5-15); Blood Urea Nitrogen 16 mg/dl (7-17); Calcium 7.7 mg/dl (8.4-10.2); Carbon Dioxide 25 mmol/L (22.0-30.0); Chloride 105 mmol/L (98-107); Creatinine Clearance Estimated 41 mL/min (50-200); Creatinine,Serum 1.10 mg/dl (0.52-1.04); Estimated Glomerular Filt Rate 52 ml/min (>60); GFR (African American) 63 ML/MIN (>60); Glucose 62 mg/dl (74-100); Sodium 138 mmol/L (136-145)
[2024-11-09 12:54] LABS: Potassium 2.9 mmoL/L (3.5-5.1)
[2024-11-09 13:12] LABS: POC Glucose,Bedside 71 (70-110)
--- NOTE | 2024-11-09 14:20 | DIET.NUTRFU ---
Reviewed multiple diabetic and dumping syndrome handouts. Also went over her current meal plan at home and made suggestion to increase her fiber/complex carb intake and limit the simple carbs. Also provided contact information for further follow-up
[2024-11-09 15:14] LABS: POC Glucose,Bedside 66 (70-110)
[2024-11-09 16:00] VITALS: BP 102/76; PULSE 80; PULSE 92; RESP 18; TEMP 37.1; O2SAT 98
[2024-11-09 16:18] LABS: POC Glucose,Bedside 42 (70-110)
--- NOTE | 2024-11-09 17:00 | P.PN_ITS ---
Subjective *Date: 11/09/24 *Time: 17:00 Interval history: Patient feeling better this morning. Denies any syncope or weakness. No nausea or vomiting. Mother at bedside. On room air. Afebrile Medical Exam Vital signs and Labs for Last 24 Hours: Vital Signs Temp Pulse Pulse Resp BP BP Pulse Ox 11/09/24 12:00 90 11/09/24 12:00 98.6 F 88 16 103/77 L 95 11/09/24 11:00 11/09/24 09:00 11/09/24 08:00 11/09/24 08:00 70 11/09/24 08:00 98.4 F 77 16 109/64 L 100 11/09/24 06:32 11/09/24 05:00 11/09/24 04:00 98.3 F 75 16 115/68 100 11/09/24 04:00 70 11/09/24 03:00 11/09/24 01:00 11/09/24 00:00 70 11/09/24 00:00 98.0 F 72 16 92/53 L 98 11/08/24 23:00 11/08/24 21:30 98.3 F 74 16 115/66 100 11/08/24 21:07 76 100 11/08/24 21:00 11/08/24 20:46 102/53 L 11/08/24 20:45 76 100 11/08/24 20:43 98.2 F 75 20 102/53 L 11/08/24 20:10 11/08/24 20:01 102/58 L 11/08/24 19:50 79 100 11/08/24 19:30 133/82 11/08/24 19:01 73 100 11/08/24 19:01 130/72 11/08/24 19:00 70 100 11/08/24 18:53 97.7 F 69 17 96/47 L 100 11/08/24 18:50 67 96/47 L 100 O2 Del Method 11/09/24 12:00 11/09/24 12:00 Room Air 11/09/24 11:00 Room Air 11/09/24 09:00 Room Air 11/09/24 08:00 Room Air 11/09/24 08:00 11/09/24 08:00 Room Air 11/09/24 06:32 Room Air 11/09/24 05:00 Room Air 11/09/24 04:00 Room Air 11/09/24 04:00 11/09/24 03:00 Room Air 11/09/24 01:00 Room Air 11/09/24 00:00 11/09/24 00:00 Room Air 11/08/24 23:00 Room Air 11/08/24 21:30 Room Air 11/08/24 21:07 11/08/24 21:00 Room Air 11/08/24 20:46 11/08/24 20:45 11/08/24 20:43 Room Air 11/08/24 20:10 Room Air 11/08/24 20:01 11/08/24 19:50 11/08/24 19:30 11/08/24 19:01 11/08/24 19:01 11/08/24 19:00 11/08/24 18:53 Room Air 11/08/24 18:50 Intake and Output 11/09/24 11/09/24 11/09/24 07:59 15:59 23:59 Intake Total 1927 / 1927 Output Total 0 / 400 400 / 400 Balance 0 / 1527 1527 / 1527 Intake: Intake, Oral Amount 510 / 510 Intake, Total IV Amount 1417 / 1417 Dextrose 5 % in Water 1,000 ml 1417 / 1417 @ 100 mls/hr IV .Q10H [facility] Rx#: [id number] Output: Output, Urine Amount 0 / 400 400 / 400 Other: Number of Unmeasured Voids 1 Number of Bowel Movements 1 2 Weight 96.644 kg 96.644 kg Patient Weight 11/09/24 23:59 Weight 96.644 kg Laboratory Results - last 24 hr 11/08/24 18:50: WBC 3.7 L, RBC 3.60 L, Hgb 10.8 L, Hct 31.6 L, MCV 87.8, MCH 30.0, MCHC 34.2, RDW 16.5, Plt Count 245, MPV 8.5, Neut % (Auto) 47.3, Lymph % (Auto) 40.9, Winkler % (Auto) 10.1 H, Eos % (Auto) 1.1, Baso % (Auto) 0.3, Neut # (Auto) 1.7 L, Lymph # (Auto) 1.5, Winkler # (Auto) 0.4, Eos # (Auto) 0.0, Baso # (Auto) 0.0, VBG pH 7.40, VBG pCO2 44.2, VBG pO2 46.4 H, VBG HCO3 26.7, VBG Total CO2 28.1 H, VBG O2 Saturation 78.1 H, VBG Base Excess 1.9, VBG Lactic Acid 1.1, Sodium 136, Potassium 2.4 L*, Chloride 101, Carbon Dioxide 29, Anion Gap 8.4, BUN 19 H, Creatinine 1.00, Estimated Creat Clear 48, Estimated GFR 58 L, Est GFR ( Amer) 71, Glucose 46 L*, Calcium 7.8 L, Magnesium 1.4 L, Total Bilirubin 0.7, AST 47 H, ALT 33, Alkaline Phosphatase 113, Troponin I < 0.01, Total Protein 5.2 L, Albumin 2.5 L, Globulin 2.7, Albumin/Globulin Ratio 0.9 L 11/08/24 21:50: Troponin I < 0.01 11/08/24 22:12: POC Glucose 65 L 11/09/24 00:05: POC Glucose 136 H 11/09/24 01:23: Troponin I < 0.01 11/09/24 05:46: WBC 3.9 L, RBC 3.42 L, Hgb 10.0 L, Hct 30.4 L, MCV 88.9, MCH 29.2, MCHC 32.9, RDW 16.9, Plt Count 247, MPV 8.9, Neut % (Auto) 49.5, Lymph % (Auto) 37.3, Winkler % (Auto) 10.5 H, Eos % (Auto) 2.1, Baso % (Auto) 0.3, Neut # (Auto) 1.9, Lymph # (Auto) 1.5, Winkler # (Auto) 0.4, Eos # (Auto) 0.1, Baso # (Auto) 0.0, Sodium 140, Potassium 2.5 L*, Chloride 108 H, Carbon Dioxide 27, Anion Gap 7.5, BUN 18 H, Creatinine 1.00, Estimated Creat Clear 45, Estimated GFR 58 L, Est GFR ( Amer) 71, Glucose 43 L*, Calcium 7.5 L, Magnesium 1.9 D, Total Bilirubin 0.4, AST 45 H, ALT 33, Alkaline Phosphatase 100, Total Protein 4.7 L, Albumin 2.2 L D, Globulin 2.5, Albumin/Globulin Ratio 0.9 L 11/09/24 06:08: POC Glucose 42 L* 11/09/24 06:30: POC Glucose 94 11/09/24 08:22: Urine Color Yellow, Urine Appearance Clear, Urine pH 6.0, Ur Specific Thayer 1.020, Urine Protein Negative, Urine Glucose (UA) Negative, Urine Ketones Trace, Urine Blood Negative, Urine Nitrate Negative, Urine Bilirubin 1+ A, Urine Urobilinogen 0.2, Ur Leukocyte Esterase 1+ A, Urine RBC None, Urine WBC 50-100, Ur Squamous Epith Cells 3-5, Urine Bacteria Trace 11/09/24 08:37: POC Glucose 57 L 11/09/24 11:57: POC Glucose 88 11/09/24 12:15: Sodium 138, Potassium 2.9 L*, Chloride 105, Carbon Dioxide 25, Anion Gap 10.9, BUN 16, Creatinine 1.10 H, Estimated Creat Clear 41, Estimated GFR 52 L, Est GFR ( Amer) 63, Glucose 62 L D, Calcium 7.7 L 11/09/24 13:05: POC Glucose 71 11/09/24 15:06: POC Glucose 66 L I & O for Labs for Last 24 Hours: Intake & Output 11/06/24 11/07/24 11/08/24 11/09/24 23:59 23:59 23:59 23:59 Intake Total 250 / 250 1927 / 1927 Output Total 400 / 400 Balance 250 / 250 1527 / 1527 Weight 98.033 kg 96.644 kg Constitutional: Present no acute distress, morbidly obese and cooperative Head: Present atraumatic and normocephalic ENT: Present normal exam Respiratory: Present normal respiratory effort; Absent rhonchi, wheezes or crackles Cardiac: Present Reg Rate and Rhythm GI: Present soft and normal bowel sounds; Absent distention or tenderness Extremities: Present normal inspection and full ROM Skin: Present intact; Absent erythema Neuro: Present Grossly Intact, alert, awake, oriented x 3 and moves all extremities Assessment and Plan *Assessment and plan (1) Hypoglycemia: Status: Acute Category: Medical Code(s): E16.2 - Hypoglycemia, unspecified (2) Acute hypokalemia: Status: Acute Category: Medical Code(s): E87.6 - Hypokalemia (3) Hypomagnesemia: Status: Acute Category: Medical Code(s): E83.42 - Hypomagnesemia (4) Weakness generalized: Status: Acute Category: Medical Code(s): R53.1 - Weakness (5) Lymphedema of leg: Status: Acute Category: Medical Code(s): I89.0 - Lymphedema, not elsewhere classified (6) Osteoarthritis of knees, bilateral: Status: Acute Qualifiers: Osteoarthritis type: primary Qualified Code(s): M17.0 - Bilateral primary osteoarthritis of knee Category: Medical Code(s): M17.0 - Bilateral primary osteoarthritis of knee (7) Dehydration, mild: Status: Acute Category: Medical Code(s): E86.0 - Dehydration (8) History of bariatric surgery: Status: Acute Category: Surgical Code(s): Z98.84 - Bariatric surgery status (9) Type 2 diabetes mellitus without complication: Status: Acute Category: Medical Code(s): E11.9 - Type 2 diabetes mellitus without complications (10) Hypothyroid: Status: Acute Qualifiers: Hypothyroidism type: unspecified Qualified Code(s): E03.9 - Hypothyroidism, unspecified Category: Medical Code(s): E03.9 - Hypothyroidism, unspecified Plan Ms. Oconnor is a 53-year-old female with history of duodenal bypass and sleeve gastrectomy. Performed earlier this year in March. Presented with low blood sugar. Concern for recurrent hypoglycemia. Decision made to admit patient after discussion with ER physician requesting admission due to persistent hemoglobins less than 50 and needing dextrose drip. Endocrine consulted to evaluate in the morning. Problems addressed as follows: Type 2 diabetes Recurrent hypoglycemia - Concern for hypersecretion state. Endocrine evaluated today, recommends frequent small meals with complex carbohydrates. Recommend avoiding simple carbohydrate - Recommend obtaining C-peptide and insulin levels when patient's glucose less than 50 -Initiate Dexcom to monitor glucose trends and to assist with carbohydrate replacement and avoid lows - Holding home glimepiride. - Not on any insulin therapy at this time - Documented significant weight loss of upwards of 100 pounds likely decreasing patient's insulin resistance Significant electrolyte disturbances with low potassium and low magnesium. Will replace per protocol. Potassium severely low at 2.3. Replacing both oral and IV. Repeat levels with CBC, CMP, magnesium ordered for the morning Mood disorder: Resume home Cymbalta 60 mg twice daily, citalopram 40 mg nightly, Elavil 50 mg nightly, Lamictal 100 mg daily Continue pantoprazole 40 mg nightly for GERD Continue trazodone 100 mg nightly for sleep Continue pravastatin 80 mg nightly for hyperlipidemia Initiate multivitamin Regular diet Full code Hemoglobin 40 mg SQ twice daily
[2024-11-09 17:06] LABS: Chloride 105 mmol/L (98-107); Sodium 138 mmol/L (136-145)
[2024-11-09 17:07] LABS: Potassium 3.6 mmoL/L (3.5-5.1)
--- NOTE | 2024-11-09 17:07 | PC.NURSE ---
notified MD of blood sugar being 44. notified lab to obtain labs per endocrinology. encouraged the patient to eat peanut butter and crackers, per endocrinology. patient is alert and oriented x4 and is asymptomatic, only stating she feels a little tired. she is currently sitting on the side of bed eating dinner and peanut butter and crackers. patient has no complaints at this time. call light within reach.
[2024-11-09 17:09] LABS: Blood Urea Nitrogen 15 mg/dl (7-17); Creatinine Clearance Estimated 45 mL/min (50-200); Creatinine,Serum 1.00 mg/dl (0.52-1.04); Estimated Glomerular Filt Rate 58 ml/min (>60); GFR (African American) 71 ML/MIN (>60)
[2024-11-09 17:10] LABS: Anion Gap 11.6 mEq/L (5-15); Calcium 7.9 mg/dl (8.4-10.2); Carbon Dioxide 25 mmol/L (22.0-30.0); Glucose 67 mg/dl (74-100)
[2024-11-09 18:01] LABS: POC Glucose,Bedside 69 (70-110)
[2024-11-09] MEDS: PRENATAL MULTIVITAMIN W/IRON 1 EACH PO (18:27)
--- NOTE | 2024-11-09 18:33 | PC.NURSE ---
notified MD of potassium level being 3.6 and patient having three more doses of PO potassium due. MD stated to only give 2 more doses of PO potassium.
--- NOTE | 2024-11-09 18:58 | PC.NURSE ---
encouraged patient to eat peanut butter and crackers, chicken salad sandwiches, and offered whole milk and yogurt, per MD orders. patient currently sitting up in bed, chicken salad and peanut butter and crackers at bedside. last glucose was 66 at 1858. patient remains asymptomatic. call light within reach, plan of care ongoing, no further requests at this time
[2024-11-09 19:00] LABS: POC Glucose,Bedside 66 (70-110)
[2024-11-09 20:00] VITALS: BP 104/59; PULSE 83; RESP 16; TEMP 36.9; O2SAT 97
[2024-11-09 21:21] LABS: POC Glucose,Bedside 75 (70-110)
[2024-11-09 21:21] LABS: POC Glucose,Bedside 58 (70-110)
[2024-11-09] MEDS: TRAZODONE 50MG TABLET 100 MG PO (22:00)
[2024-11-09] MEDS: CITALOPRAM 40MG TABLET 40 MG PO (22:00)
[2024-11-09] MEDS: FERROUS SULFATE 325MG TABLET 325 MG PO (22:00)
[2024-11-09] MEDS: PANTOPRAZOLE 40MG TABLET 40 MG PO (22:00)
[2024-11-09] MEDS: PRAVASTATIN 40MG TAB 80 MG PO (22:00)
[2024-11-09] MEDS: MONTELUKAST SODIUM 10MG TAB 10 MG PO (22:00)
[2024-11-09] MEDS: AMITRIPTYLINE 50MG TABLET 50 MG PO (22:01)
[2024-11-09] MEDS: METOPROLOL TARTRATE 25MG TABLET 25 MG PO (22:01)
[2024-11-09 23:10] LABS: POC Glucose,Bedside 54 (70-110)
[2024-11-10] VITALS: BP 104/52; PULSE 75; RESP 16; TEMP 37.1; O2SAT 98
[2024-11-10] MEDS: POTASSIUM CHLORIDE 20MEQ TAB 40 MEQ PO (01:20)
[2024-11-10 01:22] LABS: POC Glucose,Bedside 72 (70-110)
[2024-11-10 01:22] LABS: POC Glucose,Bedside 80 (70-110)
[2024-11-10 01:22] LABS: POC Glucose,Bedside 73 (70-110)
[2024-11-10 03:10] LABS: POC Glucose,Bedside 86 (70-110)
--- NOTE | 2024-11-10 03:14 | PC.NURSE ---
So far this shift, pts FSBS has been between 54-86. Pt has eaten a chicken salad sandwich, nutri grain bar, vegetable soup, and peanut butter crackers. has been drinking water. K+ admin per may. Pt has had no complaints. VSS. call light in reach.
[2024-11-10 04:00] VITALS: BP 122/69; PULSE 72; RESP 16; TEMP 36.7; O2SAT 100; BMI 43.0
[2024-11-10 04:25] VITALS: PULSE 70
[2024-11-10 05:13] LABS: POC Glucose,Bedside 74 (70-110)
[2024-11-10 05:37] LABS: Adenovirus F 40/41, stool Not Detected (NotDetected); Clostridium Difficile A/B, PCR Not Detected (NotDetected); Cyclospora Cayetanesis Not Detected (NotDetected); Plesimonas Shigalloides, PCR Not Detected (NotDetected); Salmonella, PCR Not Detected (NotDetected); Shiga-like toxin E coli Not Detected (NotDetected); Shigella Enterovasive E coli Not Detected (NotDetected); Vibrio, PCR Not Detected (NotDetected); Yersinia Entercolitica, PCR Not Detected (NotDetected)
[2024-11-10] MEDS: LEVOTHYROXINE 137MCG (0.137MG) TAB 137 MCG PO (06:17)
--- NOTE | 2024-11-10 06:22 | PC.NURSE ---
pt has eaten more peanut butter and cracker. remains asymptomatic. has no complaints.
--- NOTE | 2024-11-10 06:23 | PC.NURSE ---
pt had large, soft BM this shift.
[2024-11-10 06:29] LABS: Hematocrit 30.8 % (37.0-47.0); Hemoglobin 10.1 g/dL (12.2-16.2); Immature Granulocytes % 0.3 %; Mean Corpuscular HGB Conc 32.8 g/dL (31.8-35.4); Mean Corpuscular Hemoglobin 29.7 pg (27.0-31.2); Mean Corpuscular Volume 90.6 fl (81-99); Nucleated Red Blood Cells % 0 %; Platelet Count 205 K/mm3 (142-424); Red Blood Count 3.40 M/mm3 (4.20-5.40); Red Cell Distribution Width-SD 57.9 fL; White Blood Count 3.4 K/mm3 (4.8-10.8)
[2024-11-10 06:43] LABS: Albumin Level 2.1 g/dl (3.5-5.0); Chloride 111 mmol/L (98-107); Potassium 4.5 mmoL/L (3.5-5.1); Sodium 140 mmol/L (136-145)
[2024-11-10 06:45] LABS: Blood Urea Nitrogen 16 mg/dl (7-17)
[2024-11-10 06:46] LABS: Alanine Aminotransferase 33 U/L (12-78); Albumin/Globulin Ratio 0.8 (1.1-1.8); Alkaline Phosphatase 100 U/L (38-126); Anion Gap 7.5 mEq/L (5-15); Aspartate Amino Transferase 54 U/L (14-36); Bilirubin,Total 0.5 mg/dl (0.2-1.3); Calcium 7.5 mg/dl (8.4-10.2); Carbon Dioxide 26 mmol/L (22.0-30.0); Creatinine Clearance Estimated 50 mL/min (50-200); Creatinine,Serum 0.90 mg/dl (0.52-1.04); Estimated Glomerular Filt Rate 66 ml/min (>60); GFR (African American) 80 ML/MIN (>60); Globulin 2.5 g/dL (1.3-3.2); Glucose 74 mg/dl (74-100); Magnesium 1.7 mg/dl (1.6-2.3); Total Protein,Serum 4.6 g/dl (6.3-8.2)
[2024-11-10 08:00] VITALS: BP 113/66; PULSE 84; RESP 16; TEMP 36.4; O2SAT 92
[2024-11-10] MEDS: LORATADINE 10MG TABLET 10 MG PO (08:47)
[2024-11-10] MEDS: ASPIRIN EC 81MG TABLET 81 MG PO (08:47)
[2024-11-10] MEDS: FERROUS SULFATE 325MG TABLET 325 MG PO (08:47)
[2024-11-10] MEDS: METOPROLOL TARTRATE 25MG TABLET 25 MG PO (08:47)
[2024-11-10 09:29] LABS: Insulin Level Total 4.2 uIU/mL (2.6-24.9)
[2024-11-10 09:44] LABS: Free T4 (Free Thyroxine) 1.45 ng/dl (0.78-2.19)
[2024-11-10 09:58] LABS: Thyroid Stimulating Hormone 3.89 uIU/mL (0.465-4.68)
[2024-11-10 10:24] LABS: Insulin Level Total 9.0 uIU/mL (2.6-24.9)
[2024-11-10 10:44] VITALS: BMI 43.8
--- NOTE | 2024-11-10 10:50 | EXP.DC.SUM ---
General Admission date:: 11/08/24 Discharge date: 11/10/24 HPI HPI HPI: Ms. Oconnor 53-year-old female with a past medical history of morbid obesity, lymphedema, osteoarthritis, type 2 diabetes, anxiety and depression, recent history of gastric bypass is currently admitted for hypoglycemia . Endocrinology was consulted as patient continued to have persistent hyperglycemia. She mentioned that she was in her car yesterday having her dinner when she felt like she was going to pass out. She was then brought to the ER and was found to have a blood sugar of 46. She continued to have another episode of hypoglycemia and was started on D5 drip. Patient mentioned that she underwent gastric bypass and sleeve on April 19, 2024. Post surgery she lost ~100 pounds. She has history of type 2 diabetes, postsurgery her regimen was titrated down however she continues to take glimepiride 1 mg every day. Patient mentioned that she received nutrition education on the diet she needs to follow-up postsurgery and she is trying to adhere to it. This is however questionable as her mother during the visit mentioned that patient eat what ever she likes. Labs presentation with hypokalemia, hypoglycemia hypomagnesemia, hypocalcemia, low total protein which is consistent with patient not adhering to diet or multivitamins as required post bariatric surgery. Hospital Course Hospital Course Hospital Course: Ms. Oconnor is a 53-year-old female with history of duodenal bypass and sleeve gastrectomy. Performed earlier this year in March. Presented with low blood sugar. Concern for recurrent hypoglycemia. Decision made to admit patient after discussion with ER physician requesting admission due to persistent hemoglobins less than 50 and needing dextrose drip. Endocrine consulted to evaluate in the morning. Decision made to discontinue dextrose infusion. Transition to complex carbohydrate diet. Frequent small meals. Testing during admission consistent with hypersecretion state and hyperinsulinemia. She had stabilization of blood glucose with adjustment in dietary approach. Stable discharge home with further management as an outpatient. Problems addressed as follows: Type 2 diabetes Recurrent hypoglycemia - Concern for hypersecretion state. Endocrine consulted. C-peptide and insulin were obtained with and glucose below 50. C-peptide elevated above 5. Endocrine recommended frequent small meals and complex carbohydrates. Patient showed stability early 24 hours with glucose above 50. Initiated on Dexcom to monitor glucose levels. Given her clinical improvement, stable discharge home with close monitoring as an outpatient. Cases of hypoglycemia most consistent with reaction secondary to her bariatric surgery and over secretion of insulin. Patient currently wearing CGM. Received nutrition education and complex carb discussion prior to discharge home. Plan to follow-up with endocrine as an outpatient. Likely cause of hypoglycemic episodes is reactive secondary to bariatric surgery. Discontinue home glimepiride. Significant electrolyte disturbances with low potassium and low magnesium during admission. Replaced aggressively. Improved by day of discharge. Potassium 4.5 with magnesium 1.7. Needs repeat labs in 1 to 2 weeks to monitor stability of electrolytes. Mood disorder: Continue home Cymbalta 60 mg twice daily, citalopram 40 mg nightly, Elavil 50 mg nightly, Lamictal 100 mg daily Continue pantoprazole 40 mg nightly for GERD Continue trazodone 100 mg nightly for sleep Continue pravastatin 80 mg nightly for hyperlipidemia Initiate multivitamin due to history of gastric bypass. Recommend daily multivitamin. Total time spent on discharge 32 minutes in counseling, documentation, chart review, and direct care with patient. Evaluated by therapy during admission. Recommend outpatient PT. Order sent. Exam Data for Last 24 hours Vital signs and Labs for Last 24 Hours: Temp Pulse Resp BP Pulse Ox O2 Del Method 97.6 F 84 16 113/66 92 L Room Air 11/10/24 08:00 11/10/24 08:00 11/10/24 08:00 11/10/24 08:00 11/10/24 08:00 11/10/24 10:09 Laboratory Results - last 24 hr 11/09/24 06:08: POC Glucose 42 L* 11/09/24 06:10: Total Insulin 9.0 11/09/24 08:22: Urine Color Yellow, Urine Appearance Clear, Urine pH 6.0, Ur Specific [place] 1.020, Urine Protein Negative, Urine Glucose (UA) Negative, Urine Ketones Trace, Urine Blood Negative, Urine Nitrate Negative, Urine Bilirubin 1+ A, Urine Urobilinogen 0.2, Ur Leukocyte Esterase 1+ A, Urine RBC None, Urine WBC 50-100, Ur Squamous Epith Cells 3-5, Urine Bacteria Trace 11/09/24 11:57: POC Glucose 88 11/09/24 12:15: Sodium 138, Potassium 2.9 L*, Chloride 105, Carbon Dioxide 25, Anion Gap 10.9, BUN 16, Creatinine 1.10 H, Estimated Creat Clear 41, Estimated GFR 52 L, Est GFR ([facility] Amer) 63, Glucose 62 L D, Calcium 7.7 L 11/09/24 13:05: POC Glucose 71 11/09/24 15:06: POC Glucose 66 L 11/09/24 16:49: Sodium 138, Potassium 3.6 D, Chloride 105, Carbon Dioxide 25, Anion Gap 11.6, BUN 15, Creatinine 1.00, Estimated Creat Clear 45, Estimated GFR 58 L, Est GFR ([facility] Amer) 71, Glucose 67 L, Total Insulin 4.2, C-Peptide 3.5, Calcium 7.9 L 11/09/24 17:51: POC Glucose 69 L 11/09/24 18:53: POC Glucose 66 L 11/09/24 20:07: POC Glucose 75 11/09/24 20:57: POC Glucose 58 L 11/09/24 22:08: POC Glucose 54 L 11/09/24 23:12: POC Glucose 80 11/10/24 00:22: POC Glucose 73 11/10/24 01:14: POC Glucose 72 11/10/24 02:57: POC Glucose 86 11/10/24 04:58: POC Glucose 74 11/10/24 05:05: Stl C. cayetanensis PCR Not detected, Stool Rotavirus (PCR) Not detected, Stl Adenov F 40/41 PCR Not detected, Stool Astrovirus (PCR) Not detected, Stool Campylobacter PCR Not detected, Stl C.difficile Tox PCR Not detected, Stool Cryptosporidium PCR Not detected, Stl E.coli Shiga Tox PCR Not detected, Stool E coli O157 PCR Not detected, Stl Enterotoxigenic E PCR Not detected, Stool EPEC (PCR) Not detected, Stool EAEC (PCR) Not detected, Stl E. histolytica PCR Not detected, Stool Giardia Lamblia PCR Not detected, Stool Salmonella PCR Not detected, Stool Sapovirus (PCR) Not detected, Stl P. shigelloides PCR Not detected, Stl Shigella/EIEC PCR Not detected, St Y.enterocolitica PCR Not detected, Stool Vibrio (PCR) Not detected, Stl Vibrio cholerae PCR Not detected, Stl Norovirus GI/GII PCR Not detected 11/10/24 06:01: WBC 3.4 L, RBC 3.40 L, Hgb 10.1 L, Hct 30.8 L, MCV 90.6, MCH 29.7, MCHC 32.8, RDW 17.3, Plt Count 205, MPV 9.0, Neut % (Auto) 36.7 L, Lymph % (Auto) 49.0, [place] % (Auto) 11.4 H, Eos % (Auto) 2.3, Baso % (Auto) 0.3, Neut # (Auto) 1.3 L, Lymph # (Auto) 1.7, [place] # (Auto) 0.4, Eos # (Auto) 0.1, Baso # (Auto) 0.0, Sodium 140, Potassium 4.5 D, Chloride 111 H, Carbon Dioxide 26, Anion Gap 7.5, BUN 16, Creatinine 0.90, Estimated Creat Clear 50, Estimated GFR 66, Est GFR ( Amer) 80, Glucose 74, Calcium 7.5 L, Magnesium 1.7 D, Total Bilirubin 0.5, AST 54 H, ALT 33, Alkaline Phosphatase 100, Total Protein 4.6 L, Albumin 2.1 L, Globulin 2.5, Albumin/Globulin Ratio 0.8 L, TSH 3.89, Free T4 1.45 I & O for Last 24 hours: Intake & Output 11/07/24 11/08/24 11/09/24 11/10/24 23:59 23:59 23:59 23:59 Intake Total 250 / 250 2167 / 2647 960 / 960 Output Total 700 / 950 2350 / 2350 Balance 250 / 250 1467 / 1697 -1390 / -1390 Weight 98.033 kg 96.644 kg 101.236 kg Microbiology Reports for the Last 24 Hours: Microbiology 11/09/24 08:22 Urine,Clean Catch Urine Culture - Preliminary Gram Negative Rods Constitutional Constitutional: no acute distress, morbidly obese, chronically ill appearing and cooperative *Routine HEENT Exam Head: Present normocephalic Eye: Present EOMI and PERRL ENT: Present mucous membranes moist *Routine Neck Exam Neck: Present supple; Absent lymphadenopathy *Routine Respiratory Exam Respiratory: Present CTA bilaterally; Absent rhonchi, wheezes or crackles *Routine Cardiovascular Exam Cardiovascular: Present RRR *Routine Abdominal Exam Abdominal: Present soft, normoactive bowel sounds and obese; Absent tenderness *Routine Rectal Exam Patient deferred: visual exam *Routine Exam Patient deferred: external exam *Routine Extremities Exam Extremities: Present edema (Chronic lymphedema); Absent cyanosis or clubbing *Routine Skin Exam Skin: Present intact and warm; Absent rash *Routine Neurological Exam Neurological: Present alert, oriented X3 and moving all extremities; Absent altered mental status Results Data Completed and Pending Labs on day of discharge: Labs from last 24 hours 11/10/24 11/10/24 11/10/24 06:01 05:05 04:58 WBC 3.4 L RBC 3.40 L Hgb 10.1 L Hct 30.8 L MCV 90.6 MCH 29.7 MCHC 32.8 RDW 17.3 Plt Count 205 MPV 9.0 Neut % (Auto) 36.7 L Lymph % (Auto) 49.0 [place] % (Auto) 11.4 H Eos % (Auto) 2.3 Baso % (Auto) 0.3 Neut # (Auto) 1.3 L Lymph # (Auto) 1.7 [place] # (Auto) 0.4 Eos # (Auto) 0.1 Baso # (Auto) 0.0 Sodium 140 Potassium 4.5 D Chloride 111 H Carbon Dioxide 26 Anion Gap 7.5 BUN 16 Creatinine 0.90 Estimated Creat Clear 50 Estimated GFR 66 Est GFR ( Amer) 80 Glucose 74 POC Glucose 74 Total Insulin C-Peptide Calcium 7.5 L Magnesium 1.7 D Total Bilirubin 0.5 AST 54 H ALT 33 Alkaline Phosphatase 100 Total Protein 4.6 L Albumin 2.1 L Globulin 2.5 Albumin/Globulin Ratio 0.8 L TSH 3.89 Free T4 1.45 Urine Color Urine Appearance Urine pH Ur Specific [place] Urine Protein Urine Glucose (UA) Urine Ketones Urine Blood Urine Nitrate Urine Bilirubin Urine Urobilinogen Ur Leukocyte Esterase Urine RBC Urine WBC Ur Squamous Epith Cells Urine Bacteria Stl C. cayetanensis PCR Not detected Stool Rotavirus (PCR) Not detected Stl Adenov F 40/41 PCR Not detected Stool Astrovirus (PCR) Not detected Stool Campylobacter PCR Not detected Stl C.difficile Tox PCR Not detected Stool Cryptosporidium PCR Not detected Stl E.coli Shiga Tox PCR Not detected Stool E coli O157 PCR Not detected Stl Enterotoxigenic E PCR Not detected Stool EPEC (PCR) Not detected Stool EAEC (PCR) Not detected Stl E. histolytica PCR Not detected Stool Giardia Lamblia PCR Not detected Stool Salmonella PCR Not detected Stool Sapovirus (PCR) Not detected Stl P. shigelloides PCR Not detected Stl Shigella/EIEC PCR Not detected St Y.enterocolitica PCR Not detected Stool Vibrio (PCR) Not detected Stl Vibrio cholerae PCR Not detected Stl Norovirus GI/GII PCR Not detected 11/10/24 11/10/24 11/10/24 02:57 01:14 00:22 WBC RBC Hgb Hct MCV MCH MCHC RDW Plt Count MPV Neut % (Auto) Lymph % (Auto) [place] % (Auto) Eos % (Auto) Baso % (Auto) Neut # (Auto) Lymph # (Auto) [place] # (Auto) Eos # (Auto) Baso # (Auto) Sodium Potassium Chloride Carbon Dioxide Anion Gap BUN Creatinine Estimated Creat Clear Estimated GFR Est GFR ( Amer) Glucose POC Glucose 86 72 73 Total Insulin C-Peptide Calcium Magnesium Total Bilirubin AST ALT Alkaline Phosphatase Total Protein Albumin Globulin Albumin/Globulin Ratio TSH Free T4 Urine Color Urine Appearance Urine pH Ur Specific [place] Urine Protein Urine Glucose (UA) Urine Ketones Urine Blood Urine Nitrate Urine Bilirubin Urine Urobilinogen Ur Leukocyte Esterase Urine RBC Urine WBC Ur Squamous Epith Cells Urine Bacteria Stl C. cayetanensis PCR Stool Rotavirus (PCR) Stl Adenov F 40/41 PCR Stool Astrovirus (PCR) Stool Campylobacter PCR Stl C.difficile Tox PCR Stool Cryptosporidium PCR Stl E.coli Shiga Tox PCR Stool E coli O157 PCR Stl Enterotoxigenic E PCR Stool EPEC (PCR) Stool EAEC (PCR) Stl E. histolytica PCR Stool Giardia Lamblia PCR Stool Salmonella PCR Stool Sapovirus (PCR) Stl P. shigelloides PCR Stl Shigella/EIEC PCR St Y.enterocolitica PCR Stool Vibrio (PCR) Stl Vibrio cholerae PCR Stl Norovirus GI/GII PCR 11/09/24 11/09/24 11/09/24 23:12 22:08 20:57 WBC RBC Hgb Hct MCV MCH MCHC RDW Plt Count MPV Neut % (Auto) Lymph % (Auto) [place] % (Auto) Eos % (Auto) Baso % (Auto) Neut # (Auto) Lymph # (Auto) [place] # (Auto) Eos # (Auto) Baso # (Auto) Sodium Potassium Chloride Carbon Dioxide Anion Gap BUN Creatinine Estimated Creat Clear Estimated GFR Est GFR ( Amer) Glucose POC Glucose 80 54 L 58 L Total Insulin C-Peptide Calcium Magnesium Total Bilirubin AST ALT Alkaline Phosphatase Total Protein Albumin Globulin Albumin/Globulin Ratio TSH Free T4 Urine Color Urine Appearance Urine pH Ur Specific [place] Urine Protein Urine Glucose (UA) Urine Ketones Urine Blood Urine Nitrate Urine Bilirubin Urine Urobilinogen Ur Leukocyte Esterase Urine RBC Urine WBC Ur Squamous Epith Cells Urine Bacteria Stl C. cayetanensis PCR Stool Rotavirus (PCR) Stl Adenov F PCR Stool Astrovirus (PCR) Stool Campylobacter PCR Stl C.difficile Tox PCR Stool Cryptosporidium PCR Stl E.coli Shiga Tox PCR Stool E coli O157 PCR Stl Enterotoxigenic E PCR Stool EPEC (PCR) Stool EAEC (PCR) Stl E. histolytica PCR Stool Giardia Lamblia PCR Stool Salmonella PCR Stool Sapovirus (PCR) Stl P. shigelloides PCR Stl Shigella/EIEC PCR St Y.enterocolitica PCR Stool Vibrio (PCR) Stl Vibrio cholerae PCR Stl Norovirus GI/GII PCR 11/09/24 11/09/24 11/09/24 20:07 18:53 17:51 WBC RBC Hgb Hct MCV MCH MCHC RDW Plt Count MPV Neut % (Auto) Lymph % (Auto) [place] % (Auto) Eos % (Auto) Baso % (Auto) Neut # (Auto) Lymph # (Auto) [place] # (Auto) Eos # (Auto) Baso # (Auto) Sodium Potassium Chloride Carbon Dioxide Anion Gap BUN Creatinine Estimated Creat Clear Estimated GFR Est GFR ( Amer) Glucose POC Glucose 75 66 L 69 L Total Insulin C-Peptide Calcium Magnesium Total Bilirubin AST ALT Alkaline Phosphatase Total Protein Albumin Globulin Albumin/Globulin Ratio TSH Free T4 Urine Color Urine Appearance Urine pH Ur Specific [place] Urine Protein Urine Glucose (UA) Urine Ketones Urine Blood Urine Nitrate Urine Bilirubin Urine Urobilinogen Ur Leukocyte Esterase Urine RBC Urine WBC Ur Squamous Epith Cells Urine Bacteria Stl C. cayetanensis PCR Stool Rotavirus (PCR) Stl Adenov F PCR Stool Astrovirus (PCR) Stool Campylobacter PCR Stl C.difficile Tox PCR Stool Cryptosporidium PCR Stl E.coli Shiga Tox PCR Stool E coli O157 PCR Stl Enterotoxigenic E PCR Stool EPEC (PCR) Stool EAEC (PCR) Stl E. histolytica PCR Stool Giardia Lamblia PCR Stool Salmonella PCR Stool Sapovirus (PCR) Stl P. shigelloides PCR Stl Shigella/EIEC PCR St Y.enterocolitica PCR Stool Vibrio (PCR) Stl Vibrio cholerae PCR Stl Norovirus GI/GII PCR 11/09/24 11/09/24 11/09/24 16:49 15:06 13:05 WBC RBC Hgb Hct MCV MCH MCHC RDW Plt Count MPV Neut % (Auto) Lymph % (Auto) [place] % (Auto) Eos % (Auto) Baso % (Auto) Neut # (Auto) Lymph # (Auto) [place] # (Auto) Eos # (Auto) Baso # (Auto) Sodium 138 Potassium 3.6 D Chloride 105 Carbon Dioxide 25 Anion Gap 11.6 BUN 15 Creatinine 1.00 Estimated Creat Clear 45 Estimated GFR 58 L Est GFR ( Amer) 71 Glucose 67 L POC Glucose 66 L 71 Total Insulin 4.2 C-Peptide 3.5 Calcium 7.9 L Magnesium Total Bilirubin AST ALT Alkaline Phosphatase Total Protein Albumin Globulin Albumin/Globulin Ratio TSH Free T4 Urine Color Urine Appearance Urine pH Ur Specific [place] Urine Protein Urine Glucose (UA) Urine Ketones Urine Blood Urine Nitrate Urine Bilirubin Urine Urobilinogen Ur Leukocyte Esterase Urine RBC Urine WBC Ur Squamous Epith Cells Urine Bacteria Stl C. cayetanensis PCR Stool Rotavirus (PCR) Stl Adenov F 40/41 PCR Stool Astrovirus (PCR) Stool Campylobacter PCR Stl C.difficile Tox PCR Stool Cryptosporidium PCR Stl E.coli Shiga Tox PCR Stool E coli O157 PCR Stl Enterotoxigenic E PCR Stool EPEC (PCR) Stool EAEC (PCR) Stl E. histolytica PCR Stool Giardia Lamblia PCR Stool Salmonella PCR Stool Sapovirus (PCR) Stl P. shigelloides PCR Stl Shigella/EIEC PCR St Y.enterocolitica PCR Stool Vibrio (PCR) Stl Vibrio cholerae PCR Stl Norovirus GI/GII PCR 11/09/24 11/09/24 11/09/24 12:15 11:57 08:22 WBC RBC Hgb Hct MCV MCH MCHC RDW Plt Count MPV Neut % (Auto) Lymph % (Auto) [place] % (Auto) Eos % (Auto) Baso % (Auto) Neut # (Auto) Lymph # (Auto) [place] # (Auto) Eos # (Auto) Baso # (Auto) Sodium 138 Potassium 2.9 L* Chloride 105 Carbon Dioxide 25 Anion Gap 10.9 BUN 16 Creatinine 1.10 H Estimated Creat Clear 41 Estimated GFR 52 L Est GFR ( Amer) 63 Glucose 62 L D POC Glucose 88 Total Insulin C-Peptide Calcium 7.7 L Magnesium Total Bilirubin AST ALT Alkaline Phosphatase Total Protein Albumin Globulin Albumin/Globulin Ratio TSH Free T4 Urine Color Yellow Urine Appearance Clear Urine pH 6.0 Ur Specific [place] 1.020 Urine Protein Negative Urine Glucose (UA) Negative Urine Ketones Trace Urine Blood Negative Urine Nitrate Negative Urine Bilirubin 1+ A Urine Urobilinogen 0.2 Ur Leukocyte Esterase 1+ A Urine RBC None Urine WBC 50-100 Ur Squamous Epith Cells 3-5 Urine Bacteria Trace Stl C. cayetanensis PCR Stool Rotavirus (PCR) Stl Adenov F PCR Stool Astrovirus (PCR) Stool Campylobacter PCR Stl C.difficile Tox PCR Stool Cryptosporidium PCR Stl E.coli Shiga Tox PCR Stool E coli O157 PCR Stl Enterotoxigenic E PCR Stool EPEC (PCR) Stool EAEC (PCR) Stl E. histolytica PCR Stool Giardia Lamblia PCR Stool Salmonella PCR Stool Sapovirus (PCR) Stl P. shigelloides PCR Stl Shigella/EIEC PCR St Y.enterocolitica PCR Stool Vibrio (PCR) Stl Vibrio cholerae PCR Stl Norovirus GI/GII PCR 11/09/24 11/09/24 06:10 06:08 WBC RBC Hgb Hct MCV MCH MCHC RDW Plt Count MPV Neut % (Auto) Lymph % (Auto) [place] % (Auto) Eos % (Auto) Baso % (Auto) Neut # (Auto) Lymph # (Auto) [place] # (Auto) Eos # (Auto) Baso # (Auto) Sodium Potassium Chloride Carbon Dioxide Anion Gap BUN Creatinine Estimated Creat Clear Estimated GFR Est GFR ( Amer) Glucose POC Glucose 42 L* Total Insulin 9.0 C-Peptide Calcium Magnesium Total Bilirubin AST ALT Alkaline Phosphatase Total Protein Albumin Globulin Albumin/Globulin Ratio TSH Free T4 Urine Color Urine Appearance Urine pH Ur Specific [place] Urine Protein Urine Glucose (UA) Urine Ketones Urine Blood Urine Nitrate Urine Bilirubin Urine Urobilinogen Ur Leukocyte Esterase Urine RBC Urine WBC Ur Squamous Epith Cells Urine Bacteria Stl C. cayetanensis PCR Stool Rotavirus (PCR) Stl Adenov F PCR Stool Astrovirus (PCR) Stool Campylobacter PCR Stl C.difficile Tox PCR Stool Cryptosporidium PCR Stl E.coli Shiga Tox PCR Stool E coli O157 PCR Stl Enterotoxigenic E PCR Stool EPEC (PCR) Stool EAEC (PCR) Stl E. histolytica PCR Stool Giardia Lamblia PCR Stool Salmonella PCR Stool Sapovirus (PCR) Stl P. shigelloides PCR Stl Shigella/EIEC PCR St Y.enterocolitica PCR Stool Vibrio (PCR) Stl Vibrio cholerae PCR Stl Norovirus GI/GII PCR Preliminary micro results at discharge 11/09/24 08:22 Urine Culture - Preliminary Urine,Clean Catch Gram Negative Rods DS: Diagnosis Discharge Diagnosis (1) Weakness generalized: Status: Acute Code(s): R53.1 - Weakness (2) Hypoglycemia: Status: Acute Code(s): E16.2 - Hypoglycemia, unspecified (3) Lymphedema of leg: Status: Acute Code(s): I89.0 - Lymphedema, not elsewhere classified (4) Osteoarthritis of knees, bilateral: Status: Acute Code(s): M17.0 - Bilateral primary osteoarthritis of knee Qualifiers: Osteoarthritis type: primary Qualified Code(s): M17.0 - Bilateral primary osteoarthritis of knee (5) Dehydration, mild: Status: Acute Code(s): E86.0 - Dehydration (6) UTI (urinary tract infection): Status: Acute Code(s): N39.0 - Urinary tract infection, site not specified Problem details: Present on admission, gram-negative bacteria Meds Home Medications and Allergies Home Medications ?Medication ?Instructions ?Recorded ?Confirmed ?Type aspirin 81 mg tablet,delayed 81 mg PO DAILY 09/08/23 11/08/24 History release (Adult Low Dose Aspirin) lancets 28 gauge (FreeStyle #100 ea 09/08/23 11/08/24 History Lancets) hydroxyzine HCl 50 mg tablet 100 mg (2 x 50 mg) PO HS 90 days 05/14/24 11/08/24 Rx #180 tabs levocetirizine 5 mg tablet 5 mg PO DAILY 05/14/24 11/08/24 History losartan 50 mg-hydrochlorothiazide 1 tab PO BID 90 days #180 tabs 05/14/24 11/08/24 Rx 12.5 mg tablet Held on 11/10/24. Instructions: pending follow-up with PCP omeprazole 40 mg capsule,delayed 40 mg PO DAILY #90 caps 05/14/24 11/08/24 Rx release simvastatin 40 mg tablet 40 mg PO HS #90 tabs 05/14/24 11/08/24 Rx metoprolol tartrate 25 mg tablet 25 mg PO BID #180 tabs 06/15/24 11/08/24 Rx trazodone 100 mg tablet 100 mg PO DAILY #30 tabs 08/30/24 11/08/24 Rx duloxetine 60 mg capsule,delayed 60 mg PO BID 90 days #180 caps 09/27/24 11/08/24 Rx release Diabetic Shoes (DME) #1 ea 09/28/24 11/08/24 Rx cholecalciferol (vitamin D3) 125 125 mcg PO DAILY 11/08/24 11/08/24 History mcg (5,000 unit) tablet (Vitamin D3) citalopram 40 mg tablet 40 mg PO HS 11/08/24 11/08/24 History ferrous sulfate 325 mg (65 mg 325 mg PO BID 11/08/24 11/08/24 History iron) tablet (Iron (ferrous sulfate)) lamotrigine 25 mg tablet (Lamictal) 100 mg PO DAILY 11/08/24 11/09/24 History levothyroxine 137 mcg tablet 137 mcg PO 0700 11/08/24 11/09/24 History montelukast 10 mg tablet 10 mg PO HS 11/08/24 11/08/24 History amitriptyline 50 mg tablet 50 mg PO HS 11/09/24 11/09/24 History blood-glucose sensor (Dexcom G7 #1 ea 11/09/24 Rx Sensor device) blood-glucose,technical training coordinator,cont #1 ea 11/09/24 Rx (Dexcom G7 Station Engineer Chief) triamcinolone acetonide 0.1 % 1 applic topical BIDP PRN FLARES 11/09/24 11/09/24 History topical ointment cefdinir 300 mg capsule 300 mg PO BID #8 caps 11/10/24 Rx vits 137-ferrous fumarate 1 tab PO 1700 #30 tabs 11/10/24 Rx 27 mg iron-folic acid 0.8 mg tablet New Prescriptions to Start Prescriptions: blood-glucose sensor [Dexcom G7 Sensor] Jerome Higginbotham blood-glucose,technical training coordinator,cont [Dexcom G7 Station Engineer Chief] Jerome Higginbotham cefdinir Jerome Higginbotham [id number] Jerome Higginbotham Allergies Allergy/AdvReac Type Severity Reaction Status Date / Time milk AdvReac Mild Rash Verified 10/13/24 10:40 Discharge Plan Disposition Patient Disposition: Home, Self-Care Condition: Fair Discharge Order Discharge Orders: Discharge Order (Routine); Ordered 11/10/24 Ordered By: Jerome Higginbotham Follow up Plan Follow up with: Noemi Godwin APRN [Primary Care Provider, Medical] - 11/17/24 10:45 am Margaret Campbell MD [Staff Physician, Endocrinology] - 11/17/24 10:00 am Referral Note: 1-2 weeks Prescriptions/Medication Reconciliation: New (DME) Dexcom G7 Station Engineer Chief Misc See Rx Instructions .ROUTE Qty: 1 0RF Rx Instructions: As directed (DME) Dexcom G7 Sensor Device See Rx Instructions .ROUTE Qty: 1 0RF Rx Instructions: As directed [id number] 27mg iron- 0.8 mg Tablet 1 tab PO 1700 Qty: 30 0RF cefdinir 300 mg capsule 300 mg PO BID Qty: 8 0RF Rx Instructions: first dose 11/11/24 Continued aspirin [Adult Low Dose Aspirin] 81 mg tablet,delayed release (DR/EC) 81 mg PO DAILY (DME) lancets [FreeStyle Lancets] 28 gauge misc See Rx Instructions .ROUTE .MEDSUPPLY Qty: 100 Patient Comments: USE 1 LANCET TO CHECK GLUCOSE THREE TIMES DAILY TO CHECK BLOOD SUGAR Rx Instructions: As directed levocetirizine 5 mg tablet 5 mg PO DAILY hydroxyzine HCl 50 mg tablet 100 mg PO HS 90 Days Qty: 180 2RF omeprazole 40 mg capsule,delayed release(DR/EC) 40 mg PO DAILY Qty: 90 2RF simvastatin 40 mg tablet 40 mg PO HS Qty: 90 3RF (DME) Diabetic Shoes (DME) Misc See Rx Instructions .ROUTE .MEDSUPPLY Qty: 1 0RF Rx Instructions: [facility] Please dispense one (1) pair of Diabetic shoes with inserts duloxetine 60 mg capsule,delayed release(DR/EC) 60 mg PO BID 90 Days Qty: 180 1RF metoprolol tartrate 25 mg tablet 25 mg PO BID Qty: 180 2RF trazodone 100 mg tablet 100 mg PO DAILY Qty: 30 2RF cholecalciferol (vitamin D3) [Vitamin D3] 125 mcg (5,000 unit) Tablet 125 mcg PO DAILY levothyroxine 137 mcg tablet 137 mcg PO 0700 citalopram 40 mg tablet 40 mg PO HS lamotrigine [Lamictal] 25 mg tablet 100 mg PO DAILY Rx Instructions: Take three tablets daily for two weeks, then increase to four tablets daily. ferrous sulfate [Iron (ferrous sulfate)] 325 mg (65 mg iron) tablet 325 mg PO BID Rx Instructions: Take 1 tablet by mouth twice daily montelukast 10 mg tablet 10 mg PO HS amitriptyline 50 mg tablet 50 mg PO HS Patient Comments: TAKE 1 TABLET BY MOUTH ONCE DAILY AT BEDTIME triamcinolone acetonide 0.1 % ointment 1 applic TOPICAL BIDP PRN (Reason: FLARES) Patient Comments: APPLY OINTMENT TOPICALLY TO AFFECTED AREA TWICE DAILY FOR 2 WEEKS NEEDED FOR FLARES STOP ONE WEEK REPEAT NEEDED FOR FLARES Held losartan-hydrochlorothiazide 50-12.5 mg tablet 1 tab PO BID 90 Days Qty: 180 3RF Hold Instructions: pending follow-up with PCP Discontinued glimepiride 1 mg tablet 1 mg PO DAILY Qty: 90 3RF (DME) FreeStyle Lite Strips Strip See Rx Instructions .ROUTE .MEDSUPPLY Qty: 100 3RF Rx Instructions: As directed - Check BG BID and prn Other Ambulatory Orders: Rehab Eval, OP (Routine) Timeframe: 3 Days Facility: [facility] - Location: Physical Therapy Ordered By: Jerome Higginbotham Problem Reconciliation Problems Reviewed?: Yes Patient Discharge Instructions ACTIVITY: Continue current activity DIET: continue same diet Patient Instructions: DI for Hypokalemia, DI for Hypoglycemia, DI for Hypomagnesemia Print Language: Kyrgyz Providers Primary Care Provider: Noemi Godwin Admit Provider: Augustine Dias Attending Provider: Augustine Dias
[2024-11-10 12:00] VITALS: BP 126/71; PULSE 76; RESP 18; TEMP 36.6; O2SAT 93
--- NOTE | 2024-11-10 12:07 | P.PN_ITS ---
Subjective *Date: 11/10/24 *Time: 12:07 Interval history: Overnight, patient's BG relatively stable. She has no complaints this morning. She had couple episodes of BG<70, but patient does not recall having any symptoms. She is not trying to adhere to diet. Exam Data for Last 24 hours Vital signs and Labs for Last 24 Hours: Temp Pulse Resp BP Pulse Ox O2 Del Method 97.6 F 84 16 113/66 92 L Room Air 11/10/24 08:00 11/10/24 08:00 11/10/24 08:00 11/10/24 08:00 11/10/24 08:00 11/10/24 10:09 Laboratory Results - last 24 hr 11/09/24 06:08: POC Glucose 42 L* 11/09/24 06:10: Total Insulin 9.0, C-Peptide 5.1 H 11/09/24 08:22: Urine Color Yellow, Urine Appearance Clear, Urine pH 6.0, Ur Specific Schuyler 1.020, Urine Protein Negative, Urine Glucose (UA) Negative, Urine Ketones Trace, Urine Blood Negative, Urine Nitrate Negative, Urine Bilirubin 1+ A, Urine Urobilinogen 0.2, Ur Leukocyte Esterase 1+ A, Urine RBC None, Urine WBC 50-100, Ur Squamous Epith Cells 3-5, Urine Bacteria Trace 11/09/24 11:57: POC Glucose 88 11/09/24 12:15: Sodium 138, Potassium 2.9 L*, Chloride 105, Carbon Dioxide 25, Anion Gap 10.9, BUN 16, Creatinine 1.10 H, Estimated Creat Clear 41, Estimated GFR 52 L, Est GFR ( Amer) 63, Glucose 62 L D, Calcium 7.7 L 11/09/24 13:05: POC Glucose 71 11/09/24 15:06: POC Glucose 66 L 11/09/24 16:49: Sodium 138, Potassium 3.6 D, Chloride 105, Carbon Dioxide 25, Anion Gap 11.6, BUN 15, Creatinine 1.00, Estimated Creat Clear 45, Estimated GFR 58 L, Est GFR ( Amer) 71, Glucose 67 L, Total Insulin 4.2, C-Peptide 3.5, Calcium 7.9 L 11/09/24 17:51: POC Glucose 69 L 11/09/24 18:53: POC Glucose 66 L 11/09/24 20:07: POC Glucose 75 11/09/24 20:57: POC Glucose 58 L 11/09/24 22:08: POC Glucose 54 L 11/09/24 23:12: POC Glucose 80 11/10/24 00:22: POC Glucose 73 11/10/24 01:14: POC Glucose 72 11/10/24 02:57: POC Glucose 86 11/10/24 04:58: POC Glucose 74 11/10/24 05:05: Stl C. cayetanensis PCR Not detected, Stool Rotavirus (PCR) Not detected, Stl Adenov F 40/41 PCR Not detected, Stool Astrovirus (PCR) Not detected, Stool Campylobacter PCR Not detected, Stl C.difficile Tox PCR Not detected, Stool Cryptosporidium PCR Not detected, Stl E.coli Shiga Tox PCR Not detected, Stool E coli O157 PCR Not detected, Stl Enterotoxigenic E PCR Not detected, Stool EPEC (PCR) Not detected, Stool EAEC (PCR) Not detected, Stl E. histolytica PCR Not detected, Stool Giardia Lamblia PCR Not detected, Stool Salmonella PCR Not detected, Stool Sapovirus (PCR) Not detected, Stl P. shigelloides PCR Not detected, Stl Shigella/EIEC PCR Not detected, St Y.enterocolitica PCR Not detected, Stool Vibrio (PCR) Not detected, Stl Vibrio cholerae PCR Not detected, Stl Norovirus GI/GII PCR Not detected 11/10/24 06:01: WBC 3.4 L, RBC 3.40 L, Hgb 10.1 L, Hct 30.8 L, MCV 90.6, MCH 29.7, MCHC 32.8, RDW 17.3, Plt Count 205, MPV 9.0, Neut % (Auto) 36.7 L, Lymph % (Auto) 49.0, Shackelford % (Auto) 11.4 H, Eos % (Auto) 2.3, Baso % (Auto) 0.3, Neut # (Auto) 1.3 L, Lymph # (Auto) 1.7, [place]ord # (Auto) 0.4, Eos # (Auto) 0.1, Baso # (Auto) 0.0, Sodium 140, Potassium 4.5 D, Chloride 111 H, Carbon Dioxide 26, Anion Gap 7.5, BUN 16, Creatinine 0.90, Estimated Creat Clear 50, Estimated GFR 66, Est GFR ( Amer) 80, Glucose 74, Calcium 7.5 L, Magnesium 1.7 D, Total Bilirubin 0.5, AST 54 H, ALT 33, Alkaline Phosphatase 100, Total Protein 4.6 L, Albumin 2.1 L, Globulin 2.5, Albumin/Globulin Ratio 0.8 L, TSH 3.89, Free T4 1.45 I & O for Last 24 hours: Intake & Output 11/07/24 11/08/24 11/09/24 11/10/24 23:59 23:59 23:59 23:59 Intake Total 250 / 250 2167 / 2647 960 / 960 Output Total 700 / 950 2350 / 2350 Balance 250 / 250 1467 / 1697 -1390 / -1390 Weight 216 lb 2 oz 213 lb 1 oz 223 lb 3 oz Microbiology Reports for the Last 24 Hours: Microbiology 11/09/24 08:22 Urine,Clean Catch Urine Culture - Preliminary Gram Negative Rods Constitutional Constitutional: no acute distress and morbidly obese *Routine HEENT Exam Head: Present normocephalic; Absent facial swelling *Routine Respiratory Exam Respiratory: Present able to speak in complete sentences; Absent respiratory distress *Routine Cardiovascular Exam Cardiovascular: Present RRR *Routine Extremities Exam Extremities: Present edema *Routine Neurological Exam Neurological: Present alert and oriented X3 Routine Psychiatric Exam Psychiatric: Present normal affect and normal thought process Assessment and Plan *Assessment and plan (1) Hypoglycemia: Status: Acute Category: Medical Code(s): E16.2 - Hypoglycemia, unspecified Plan: - Patient mentioned that she underwent ([id number]-mkqjimts bypass and sleeve gastrectomy) on Apr 19, 2024. - Received nutrition education on complex carbs yesterday. - Currently wearing CGM - She did not have any further hypoglycemic episodes with BG<55 - Insulin and c-peptide level at BG-66, BG have to be <55 in-order to diagnose for insulin mediated tumors. In her case more likely cause of her hypoglycemic episdoes is reactive secondary to bariatric surgery. - Educated patient again on using complex carbs to correct her hypoglycemic episodes. - I will follow-up outpatient in 2 weeks. - Ok for discharge from endocrine stand point. (2) History of bariatric surgery: Status: Acute Category: Surgical Code(s): Z98.84 - Bariatric surgery status Plan: Electrolyte abnormalities resolved (3) Hypothyroid: Status: Acute Category: Medical Code(s): E03.9 - Hypothyroidism, unspecified Plan: TFT's with in normal limits Continue current dose of levothyroxine
[2024-11-11 08:13] LABS: Insulin Level Total 2.3 uIU/mL (2.6-24.9)
--- NOTE | 2024-11-11 13:26 | SW/DCPLANNER ---
Addendum entered by Alice Serrato 11/11/24 14:00: Phoned patient and left a message that her dexcom that she has enough till she sees the endrocon. Boo Pedroza Original Note: Spoke with patient on the phone. Patient stated that she is doing well. Patient stated that she is aware of her upcoming appointments. Patient stated that she was able to get her new medicine picked up from clinic pharmacy. Patient stated that she was wondering about a bedside commode. We are putting in a order for her and sending it to [facility]. Patient stated that she has no other concerns or questions at this time. Boo Pedroza
--- NOTE | 2024-11-11 13:26 | CARE MANAGER ---
Addendum entered by Yamel Mandel RN 11/11/24 13:27: Patient requests tawnya Original Note: Patient is unable to physically make to bathroom and requires the use of a bedside commode.
[2024-11-13 11:30] LABS: Hemoglobin A1C 4.4 % (4.0-6.0)
[2024-11-15 11:45] LABS: POC Glucose,Bedside 66 (70-110)
[2024-11-15 11:45] LABS: POC Glucose,Bedside 44 (70-110)
[2024-11-15 11:48] LABS: POC Glucose,Bedside 47 (70-110)
[2024-11-15 11:48] LABS: POC Glucose,Bedside 41 (70-110)
[2024-11-15 11:48] LABS: POC Glucose,Bedside 44 (70-110)
== END 2024-11-10 15:20 | disposition home or self-care (01) | DRG 638 ==
LOC: ER 18:53 → 2ND 11-09 00:16
PROVIDERS: Internal Medicine Adolescent Medicine; Nurse Practitioner Family; Student in an Organized Health Care Education/Training Program; Admitting Provider Student in an Organized Health Care Education/Training Program; Emergency Provider Student in an Organized Health Care Education/Training Program; PCP Nurse Practitioner Family; Visit Provider Student in an Organized Health Care Education/Training Program
DX: E11.649 Type 2 diabetes mellitus with hypoglycemia without coma (principal); Z68.41 Body mass index [BMI] 40.0-44.9, adult; F39 Unspecified mood [affective] disorder; K21.9 Gastro-esophageal reflux disease without esophagitis; E78.5 Hyperlipidemia, unspecified; E87.6 Hypokalemia; E83.42 Hypomagnesemia; E83.51 Hypocalcemia; E03.9 Hypothyroidism, unspecified; I89.0 Lymphedema, not elsewhere classified; E66.01 Morbid (severe) obesity due to excess calories; E86.0 Dehydration; E11.9 Type 2 diabetes mellitus without complications; M17.0 Bilateral primary osteoarthritis of knee; Z98.84 Bariatric surgery status; Z87.891 Personal history of nicotine dependence; Z79.82 Long term (current) use of aspirin; Z79.84 Long term (current) use of oral hypoglycemic drugs; Z79.890 Hormone replacement therapy; Z79.899 Other long term (current) drug therapy; Z91.011 Allergy to milk products; Z91.119 Patient's noncompliance with dietary regimen due to unspecified reason
CPT/HCPCS: 36415; 80048; 80053; 81001; 82010; 82803; 82962; 83036; 83525; 83735; 84439; 84443; 84484; 84681; 85025; 87086; 87088; 87186; 87507; 93005; 97162; 97530; 99284; J0696; J1650; J2405; J3475; J3480; J7070

== ENCOUNTER 2024-11-19 14:00 | Outpatient (RCR) | payer MEDICAID, SELFPAY ==
--- NOTE | 2024-10-22 11:08 | HMH.RHREAS ---
Rehab Reassessment Rehab OP Re-assessment Start: 10/22/24 10:29 Freq: Status: Active Protocol: Document 10/22/24 10:49 ERICKSON (Rec: 10/22/24 11:06 ERICKSON [id number]) E-signed By Manoj Driscoll, PT Rehab Re-assessment Subjective Subjective Pt reports no c/o pain in B LE this date. At worst, her pain in B LE is 5/10 and is only intermittent. She reports less feeling of heaviness in both legs and feels as if she can walk a little better now. Objective Objective Notes Circumferential measurements: R LE total is 193.7 cm which is -20.4 cm since IE. ( This LE has had compression wrap in place for 3 days since last treatment) L LE total is 200.1 cm which is -5.0 cm since IE. TTP: 0/4 B lower legs Edema: 2+ pitting edema in B lower legs. L LE with continued MODERATE fibrotic edema. Erythema: Blanchable erythema is mild this date to B lower legs. LLIS: 70 this date vs 82 on IE. Assessment Progress Assessment Progressing as Expected Assessment Notes Pt has shown significant reduction of overall edema based on circumferential measurements, but continues to have increased pitting edema, fibrotic edema, and pain . Skilled acute therapy remains indicated in order to improve functional mobility and ADLs in order to improve pt QOL. Patient goals met STG (2 wks) Pt will: 1) Decrease edema to 1+ pitting edema to B lower legs ( not met, remains active) 2) Decrease subjective c/o pain to 4/10 pain L lower leg (not met, remains active) 3) Decrease circumferential measurements in B LE total by 5 cm ea (met) LTG (4 wks) pt will: 1) Decrease edema to no pitting edema to B lower legs ( not met, remains active) 2) Decrease B LE lymphedema to no fibrotic edema noted (not met, remains active) 3) Decrease subjective c/o pain to 2/10 pain L lower leg (not met, remains active) 4) Decrease circumferential measurements in B LE total by 15 cm ea (not met, remains active) Revised Goals STG (2 wks) pt will: 4) Decrease circumferential measurements in B LE by 10 cm ea. Plan Plan Continue with treatment as outlined in prior POC including: Frequency of Therapy 2 x/wk Duration of Therapy 4 wks Therapeutic Exercise Yes Including Home Exercise Program Manual Therapy Yes Techniques Neuromuscular Re- Yes education Therapeutic Yes Activities to Return to Previous Functional/Work Level ADL/Self Care Yes Education Orthotics/Bracing/ Yes Splinting Vasopneumatic Yes Compression Pump Manual Lymphatic Yes Drainage Eval/Re-Eval Yes Time and Billing Re-Eval Time 16 Re-Eval Billing 1 Units Charge for PT Yes reassessment? PHYSICIAN CERTIFICATION: I certify the specified therapy services for Yane Oconnor are required, authorized, and reviewed every 30 days.
--- NOTE | 2024-11-19 16:54 | HMH.RHREAS ---
Rehab Reassessment Rehab OP Re-assessment Start: 10/22/24 10:29 Freq: Status: Active Protocol: Document 11/19/24 16:41 ERICKSON (Rec: 11/19/24 16:52 PHORNICOLÁS [id number]) E-signed By Manoj Driscoll, PT Rehab Re-assessment Subjective Subjective Pt reports no c/o pain in B LE this date. At worst, her pain in B LE is 4/10 and is only intermittent. She was recently hospitalized an unable to attend ~ 2 wks of appointments for treatment which has resulted in increased feelings of heaviness in B LE. Objective Objective Notes Circumferential measurements: R LE total is 208.3 cm which is -5.8 cm since IE. L LE total is 202.7 cm which is -2.4 cm since IE. TTP: 0/4 B lower legs Edema: 1+ pitting edema in B lower legs. L LE with continued MODERATE fibrotic edema. Erythema: Blanchable erythema is mild this date to B lower legs. LLIS: 72 this date vs 82 on IE. Assessment Progress Assessment Slower Than Expected Assessment Notes Pt has shown mild reversal of prior reduction in overall edema based on circumferential measurements, but has shown decreased pitting edema. She continues to deal with fibrotic edema and pain. Skilled acute therapy remains indicated in order to improve functional mobility and ADLs in order to improve pt QOL . Lymphedema Patient Goals Lymphedema Short STG (2 wks) Pt will: Term Patient Goals 1) Decrease edema to no edema to B lower legs 2) Decrease subjective c/o pain to 3/10 pain L lower leg 3) Decrease circumferential measurements in B LE total by 5 cm ea Lymphedema Environmental Services Worker STG (2 wks) Pt will: Patient Goals 1) Decrease edema to MINIMAL fibrotic edema to B lower legs 2) Decrease subjective c/o pain to 1/10 pain L lower leg 3) Decrease circumferential measurements in B LE total by 10 cm ea 4) Decrease LLIS score to 65 or less Plan Plan Continue with treatment with the following possible interventions in order to aid pt improvement in QOL: Frequency of Therapy 2 x/wk Duration of Therapy 4 wks Therapeutic Exercise Yes Including Home Exercise Program Manual Therapy Yes Techniques Neuromuscular Re- Yes education Therapeutic Yes Activities to Return to Previous Functional/Work Level ADL/Self Care Yes Education Orthotics/Bracing/ Yes Splinting Vasopneumatic Yes Compression Pump Manual Lymphatic Yes Drainage Eval/Re-Eval Yes Time and Billing Re-Eval Time 15 Re-Eval Billing 1 Units Charge for PT Yes reassessment? PHYSICIAN CERTIFICATION: I certify the specified therapy services for Yane Dual are required, authorized, and reviewed every 30 days.
== END 2024-11-19 23:59 | disposition home or self-care (01) ==
LOC: PT 14:00
PROVIDERS: Visit Provider Nurse Practitioner Family
DX: I89.0 Lymphedema, not elsewhere classified (principal)
CPT/HCPCS: 97140; 97164

== ENCOUNTER 2024-11-29 15:00 | Outpatient (CLI) | payer MEDICAID, SELFPAY ==
[2024-11-29 16:29] LABS: Microscopic, Urine URINE MICROSCOPIC (MICROSCOPIC)
[2024-11-29 19:25] LABS: Bilirubin,Urine Negative (Negative); Color,Urine YELLOW (Yellow); Glucose,Urine (UA) Negative (Negative); Ketones,Urine TRACE (Negative); Leukocyte Esterase,Urine 1+ (Negative); PH,Urine 6.0 (5.0-8.5); Protein,Urine Negative (Negative); Specific Gravity, Urine 1.020 (1.005-1.030); Urobilinogen,Urine 0.2 EU/dl (0.2)
[2024-11-29 19:50] LABS: Albumin Level 2.7 g/dl (3.5-5.0); Chloride 109 mmol/L (98-107)
[2024-11-29 19:51] LABS: Potassium 4.0 mmoL/L (3.5-5.1); Sodium 137 mmol/L (136-145)
[2024-11-29 19:53] LABS: Alanine Aminotransferase 22 U/L (12-78); Albumin/Globulin Ratio 1.0 (1.1-1.8); Alkaline Phosphatase 97 U/L (38-126); Anion Gap 5.0 mEq/L (5-15); Aspartate Amino Transferase 41 U/L (14-36); Bilirubin,Total 0.7 mg/dl (0.2-1.3); Blood Urea Nitrogen 13 mg/dl (7-17); Carbon Dioxide 27 mmol/L (22.0-30.0); Creatinine,Serum 0.90 mg/dl (0.52-1.04); Estimated Glomerular Filt Rate 66 ml/min (>60); GFR (African American) 80 ML/MIN (>60); Globulin 2.7 g/dL (1.3-3.2); Total Protein,Serum 5.4 g/dl (6.3-8.2)
[2024-11-29 19:54] LABS: Calcium 8.4 mg/dl (8.4-10.2); Glucose 76 mg/dl (74-100)
[2024-11-29 20:29] LABS: Bacteria,Urine 1+ /lpf; Calcium Oxalate Crystals,Urine 3+ /lpf; Mucus,Urine 1+ /lpf
--- OUTSIDE RECORDS SUMMARY | 2024-11-30 10:31 | XMS_ITS | Encounter Summary ---
Author Organization [employer] ([place], [place], [place], [place]) Address [address] [place] [address] Care Team Providers Care Food Aide Name Role Phone Nelliekarissa Reina Nilsa TAMEZ Primary Care Provider [phone] Encounter Details Date Type Department Care Team (Late st Contact Info) Description 12/02/2019 Transcribed Document [facility] [place] [address] [place] [address] ProviderVeronica MD [address] [place] [address] Social History Tobacco Use Types [...] Source : Stated Height Entry Format : [place] Height, Feet : 5 ft(Converted to: 152 cm, 60 Inch) Height, Inches : 0 Inch(Converted to: 0 ft 0 Inch, 0.00 cm) Clinical Height : 152.4 cm Weight Source : Standing scale Weight Entry Format : [place] Clinical Dosing Weight : 127.73 kg Weight, Pounds : 281 lb Body Surface Area (BSA) : 2.16 m2 Body Mass Index : 55 kg/m2 (>HHI) [place] Body Weight : 45 kg CLINTON CASTAÑEDA [...] CLINTON CASTAÑEDA RN - 12/02/2019 12:59 EDT [place] Suicide Severity Rating Scale (C-SSRS) CSSRS Past [...] #2 Relationship : . Primary Language : Faroese Preferred Communication Mode : Verbal Communication Barrier : None Mri Assistant Needed : CLINTON Vaca RN - 12/02/2019 [...] Scale Risk Level : 25-45 Medium Risk [place] Fall Interventions : Adequate lighting, Bed in [...] the text rendition version of the form. [place] Coma Neal Best Motor Response : Obey commands Neal Best Verbal Response : Oriented [place] Eye Opening Response : Spontaneous [place] Coma Score : 15 CLINTON CASTAÑEDA, RN - 12/02/2019 12:59 EDT Electronically signed by [facility], [facility] Conversion Rack Puller Cerner at 07/09/2022 12:14 PM CDT documented in this encounter Plan of Treatment Not on file documented as of this encounter Visit Diagnoses Not on filedocumented in this encounter Care Teams Food Aide Relationship Specialty Start Date End Date Reina Olmedo, CLAIMS PROCESSOR [address] [place] [address] PCP - General Nurse Practitioner 11/14/22 10/01/23 documented as of this encounter
--- OUTSIDE RECORDS SUMMARY | 2024-11-30 10:32 | XMS_ITS | Encounter Summary ---
Author Organization [employer] ([place], [place], [place], [place]) Address [address] [place] [address] Care Team Providers Care Calender Roll Operator Name Role Phone Reina Olmedo APRN Primary Care Provider [phone] Encounter Details Date Type Department Care Team (Late st Contact Info) Description 12/02/2019 Transcribed Document [facility] [place] Medicine [address] [place] [address] ProviderVeronica MD [address] [place] [address] Social History Tobacco Use Types [...] YANE REBOLLEDO/Sex: 1970 Female Med Rec #: [id number] Physician: YOU HAWTHORNE MD-OBG Financial #: [id number] Pt. Type: O Room/Bed: [facility]/ Admit/Disch: 12/02/19 11:24:00 - Institution: [facility] PACU Case Times Entry 1 In PACU I 12/02/19 16:13:00 Ready for PACU 12/02/19 17:05:00 Discharge Discharge from PACU 12/02/19 17:05:00 I Last Modified By: Helen Francis RN 12/02/19 17:09:16 [facility] PACU Case Times Audit 12/02/19 17:09:16 Organizational Consultant: SXPOWERS Modifier: SXPOWERS <+> 1 Ready for PACU Discharge <+> 1 Discharge from PACU I Finalized By: Helen Francis, RN Document Signatures Signed By: Helen Francis RN 12/02/19 17:09 documented in this encounter Plan of Treatment Not on file documented as of this encounter Visit Diagnoses Not on filedocumented in this encounter Care Teams Calender Roll Operator Relationship Specialty Start Date End Date Reina Olmedo, PARCEL CARRIER [address] [place] [address] PCP - General Nurse Practitioner 11/14/22 10/01/23 documented as of this encounter
--- OUTSIDE RECORDS SUMMARY | 2024-11-30 10:32 | XMS_ITS | Encounter Summary ---
Author Organization [employer] ([place], [place], [place], [place]) Address [address] [place] [address] Care Team Providers Care Assistant Basketball Coach Name Role Phone Reina Olmedo APRN Primary Care Provider [phone] Encounter Details Date Type Department Care Team (Late st Contact Info) Description 08/03/2020 Transcribed Document [facility] EXPERIMENTAL PHYSICIST - [employer] [address] [facility] [address] [place] [address] Radha Rodrigues MD [address] [facility] [address] [place] [address] Social History Tobacco Use Types Packs/Day Years [...] PROCEDURES PERFORMED: Total laparoscopic hysterectomy, bilateral salpingectomy. PEDIATRIC RADIOLOGIST: Aidee. INDICATION FOR SURGERY: The patient is [...] recovery room in alert and stable condition. /[id number] Radha Rodrigues MD EE/AQ / EE / MODL /[id number] documented in this encounter Plan of Treatment Not on file documented as of this encounter Visit Diagnoses Not on filedocumented in this encounter Care Teams Assistant Basketball Coach Relationship Specialty Start Date End Date Reina Olmedo, SYSTEMS DEVELOPMENT MANAGER [address] [place] [address] PCP - General Nurse Practitioner 11/14/22 10/01/23 documented as of this encounter
--- OUTSIDE RECORDS SUMMARY | 2024-11-30 10:32 | XMS_ITS | Encounter Summary ---
Author Organization [facility] ([place], [place], [place], [place]) Address [address] [place] [address] Care Team Providers Care Structural Rigger Name Role Phone Nelliekarissa Reina Ash APRN Primary Care Provider [phone] Encounter Details Date Type Department Care Team (Late st Contact Info) Description 08/03/2020 Transcribed Document [facility] [place] [address] [place] [address] ProviderVeronica MD [address] [place] [address] Social History Tobacco Use Types [...] Source : Stated Height Entry Format : [place] Height, Feet : 5 ft(Converted to: 152 cm, 60 Inch) Height, Inches : 0 Inch(Converted to: 0 ft 0 Inch, 0.00 cm) Clinical Height : 152.4 cm Weight Source : Standing scale Weight Entry Format : [place] Clinical Dosing Weight : 126.36 kg Weight, Pounds : 278 lb Body Surface Area (BSA) : 2.15 m2 Body Mass Index : 54.4 kg/m2 (>HHI) [place] Body Weight : 45 kg Kathe De [...] De Souza RN - 08/03/2020 8:32 EDT [place] Suicide Severity Rating Scale (C-SSRS) CSSRS Past [...] Date/Time : 08/03/2020 7:55 EDT Support Person/Patient Motor Man : Yes Want Family/Rep/Phys Notified of Admit : No Emergency Contact #1 : Meryl Cervantes Emergency Contact #1 Emergency Contact #1 Relationship : mother Emergency Contact #2 : - Emergency Contact #2 Phone Number : - Emergency Contact #2 Relationship : - Information Obtained From : Patient Primary Language : Jamaican Preferred Communication Mode : Verbal Communication Barrier : None Transportation Maintenance Operator Needed : No Kathe De Souza RN [...] on filedocumented in this encounter Care Teams Structural Rigger Relationship Specialty Start Date End Date Reina Olmedo, BUSINESS ANALYSIS PROFESSIONAL [address] [place] [address] PCP - General Nurse Practitioner 11/14/22 10/01/23 documented as of this encounter
--- OUTSIDE RECORDS SUMMARY | 2024-11-30 10:32 | XMS_ITS | Encounter Summary ---
Author Organization [employer] ([place], [place], [place], [place]) Address [address] [place] [address] Care Team Providers Care Environmental Services Project Manager Name Role Phone NellieReina hancock Nilsa TAMEZ Primary Care Provider [phone] Encounter Details Date Type Department Care Team (Late st Contact Info) Description 07/27/2020 Transcribed Document [facility] [place] [address] [place] [address] ProviderVeronica MD [address] [place] [address] Social History Tobacco Use Types [...] to thoroughly wash your hands, use hand line builder. While handwashing is best, hand line builder helps to reduce the spread of germs when you are out and about. Have hand line builder in several locations so you can always [...] keep people from also getting sick. Don???t [place] It! Sneezing this time of year is [...] a PCP near you, please visit [employer] [email or web address]. May 28, 2019 Carbohydrate Counting for [...] different for every person. A diet and floral department specialist (registered dietitian) can help you make [...] of carbohydrates: ? hamburger bun or ? Honduran muffin. ? oz (15 mL) syrup. ? [...] foods that contain carbohydrates: ??? Rice. ??? Brutus. ??? Milk. ??? Strawberries. 2. Calculate how [...] manage your diabetes. ??? A diet and floral department specialist (registered dietitian) can help you make a meal plan and calculate how many carbohydrates you should have at each meal and snack. This information is not intended to replace advice given to you by your health care provider. Make sure you discuss any questions you have with your health care provider. Document Revised: 10/02/2017 Document Reviewed: 08/21/2016 [employer] Patient Education ? 2020 [employer] Diabetes Mellitus and Nutrition, Adult When [...] that you work with a diet and floral department specialist (dietitian) to make a meal plan [...] provider. ??? Work with a counselor or mannequin sander and finisher to identify strategies to manage stress and any emotional and social challenges. Questions to ask a health care provider ??? Do I need to meet with a mannequin sander and finisher? Do I need to meet with a dietitian? What number can I call if I have questions? When are the best times to check my blood glucose? Where to find more information: ??? [place] Diabetes Association: diabetes.org ??? Academy of Nutrition and Dietetics: www.eatright.org ??? National Bishop of Diabetes and Digestive and Kidney Diseases (NIH): www.niddk.nih.gov Summary ??? A healthy meal plan will help you control your blood glucose and maintain a healthy lifestyle. ??? Working with a diet and floral department specialist (dietitian) can help you make a [...] provider. Document Revised: 02/20/2018 Document Reviewed: 04/14/2017 [employer] Patient Education ? 2020 [employer] Moderate Conscious Sedation, Adult, Care After [...] you are awake and alert. ??? Take bwci-xdf-vkxivao and prescription medicines only as told by [...] provider. Document Revised: 02/20/2018 Document Reviewed: 06/29/2016 [employer] Patient Education ? 2020 [employer] Radial Site Care This sheet gives [...] these instructions at home: Medicines ??? Take zwks-iuw-ogbodne and prescription medicines only as told by your health care provider. Insertion site care ??? Follow instructions from your health care provider about how to take care of your insertion site. Make sure you: ? Wash your hands with soap and water before you change your bandage (dressing). If soap and water are not available, use hand line builder. ? Change your dressing as told by [...] provider. Document Revised: 04/15/2018 Document Reviewed: 04/15/2018 [employer] Patient Education ? 2020 [employer] Transradial Angiogram A transradial angiogram is [...] including vitamins, herbs, eye drops, creams, and ukfc-esd-ireqmex medicines. ??? Any problems you or family [...] tells you to take them. ??? Taking hppj-hqg-dexujde medicines, vitamins, herbs, and supplements. Exams and [...] provider. Document Revised: 02/01/2019 Document Reviewed: 02/01/2019 [employer] Patient Education ? 2019 [employer]. Radiology Coronary Angiogram A coronary angiogram is [...] including vitamins, herbs, eye drops, creams, and ntov-adu-aztirna medicines. ??? Any problems you or family [...] do not normally take it. ??? Taking yyzk-asm-xsdryye medicines, vitamins, herbs, and supplements. General instructions [...] Reviewed: 09/30/2019 Elsevier Patient Education ? 2020 [employer] documented in this encounter Plan of Treatment Not on file documented as of this encounter Visit Diagnoses Not on filedocumented in this encounter Care Teams Environmental Services Project Manager Relationship Specialty Start Date End Date Reina Olmedo, FILM COLOR TESTER [address] [place] [address] PCP - General Nurse Practitioner 11/14/22 10/01/23 documented as of this encounter
--- OUTSIDE RECORDS SUMMARY | 2024-11-30 10:32 | XMS_ITS | Encounter Summary ---
Author Organization [employer] ([place], [place], [place], [place]) Address [address] [place] [address] Care Team Providers Care Hand Stoner Name Role Phone Reina Olmedo DASHAWN Primary Care Provider [phone] [phone] Encounter Details Date Type Department Care Team (Late st Contact Info) Description 07/27/2020 Transcribed Document [facility] [place] Medicine [address] [place] [address] ProviderVeronica MD [address] [place] [address] Social History Tobacco Use Types [...] 1970 Associated Diagnoses: None Author: FABIENNE LU MD-[facility] Basic Information Stonemason Apprentice: Rosa Jean-Baptiste MD Chief Complaint Pre-op clearance; X RAY INSPECTOR surgery Abnormal stress. History of Present Illness [...] Refill(s) Problem list: All Problems Arthritis / [id number] / Confirmed Diabetes / [id number] / Confirmed History of obstructive sleep apnea / 01502304 / Confirmed Hyperlipidemia / 24543551 / Confirmed Hypertension / 4238825227 / Confirmed Hypothyroid / 52443154 / Confirmed Anxiety and depression / 327543893 / Confirmed Histories No education data available. Social & Psychosocial Habits Alcohol 12/02/2019 Alcohol Use History, Social Habits No Substance Abuse 12/02/2019 Recreational Drug Use History No Recreational Drug Use Last 12 Months No Tobacco 06/30/2014 Tobacco Use Within Last Twelve Months No Smoking Status Former smoker Month Tobacco Last Used quit 1999 Past Medical History: Active HLD - Hyperlipidemia (444299813) HTN - Hypertension (8761184841) Type 2 diabetes mellitus (740272215) Family History: Mother Heart disease Procedure history: [...] CKD IIIb ROSIO: untreated Pre-op clearance: Abnormal X RAY INSPECTOR bleeding. PLAN; Left Heart Catheterization w/ possibility of PCI via right radial artery. Risks and Benefits discussed. Patient wishes to proceed. Minimize NSAIDS. IVF hydration. Hold Metformin 48 hr post cath. Discussed low carb diet (100 gram/d), portion control (30% less every dinner), Na restriction, referral to community health navigator. Follow-up w/ ROSIO MD. Encourage pt to discuss SGLT2i (Involkana, Farxiga)/GLP1a w/ primary provider. documented in this encounter Plan of Treatment Not on file documented as of this encounter Visit Diagnoses Not on filedocumented in this encounter Care Teams Hand Stoner Relationship Specialty Start Date End Date Reina Olmedo, CAREER DEVELOPMENT COORDINATOR [address] [place] [address] PCP - General Nurse Practitioner 11/14/22 10/01/23 documented as of this encounter
--- OUTSIDE RECORDS SUMMARY | 2024-11-30 10:32 | XMS_ITS | Encounter Summary ---
Author Organization [employer] ([place], [place], [place], [place]) Address [address] [place] [address] Care Team Providers Care Clipper Operator Name Role Phone Reina Olmedo APRN Primary Care Provider [phone] Encounter Details Date Type Department Care Team (Late st Contact Info) Description 12/02/2019 Transcribed Document [facility] [place] Family Medicine [address] [place] [address] ProviderVeronica MD [address] [place] [address] Social History Tobacco Use Types [...] ANGÉLICA REBOLLEDO/Sex: 1970 Female Med Rec #: [id number] Physician: YOU HAWTHORNE MD-OBG Financial #: [id number] Pt. Type: O Room/Bed: [facility]/ Admit/Disch: 12/02/19 11:24:00 - Institution: [facility] IntraOp Case Attendance Entry 1 Entry 2 Entry 3 Case Attendee YOU HAWTHORNE Holliday, Stewart R, RN ANTONIO CABRERA, LIZZ BECERRA-OBG Role Performed Surgeon/Proceduralist, Lab Assistant, First INSPECTOR QUALITY ASSURANCE/Nurse Colorist Formulator First Time In 12/02/19 15:17:00 12/02/19 15:17:00 12/02/19 15:17:00 Time Out 12/02/19 16:14:00 12/02/19 16:14:00 12/02/19 15:46:00 Procedure Myomectomy Hysteroscopic Myomectomy Hysteroscopic Myomectomy Hysteroscopic Other Attendee Superficial Wound Closed By: Last Modified By: Foster Avilez, RN Foster Avilez, RN Foster Avilez, JASSON 12/02/19 16:14:35 12/02/19 16:14:35 12/02/19 16:14:35 Entry 4 Entry 5 Case Attendee ADRIÁN GOMEZ ST BROWNING, JANICE R, FORGING DIE FINISHER-ANS Role Performed Scrub, First INSPECTOR QUALITY ASSURANCE/Nurse Colorist Formulator Time In 12/02/19 15:17:00 12/02/19 15:46:00 Time Out 12/02/19 16:14:00 12/02/19 16:14:00 Procedure Myomectomy Hysteroscopic Myomectomy Hysteroscopic Other Attendee Superficial Wound Closed By: Last Modified By: Foster Avilez RN Holliday, Stewart R, JASSON 12/02/19 16:14:35 12/02/19 16:14:35 E IntraOp Case Attendance Audit 12/02/19 16:14:35 Adjunct Teacher: JERONIMO Modifier: JERONIMO 1 <+> Time Out 1 <*> Procedure Myomectomy Hysteroscopic 2 <+> Time Out 2 <*> Procedure Myomectomy Hysteroscopic 3 <*> Procedure Myomectomy Hysteroscopic 4 <+> Time Out 4 <*> Procedure Myomectomy Hysteroscopic 5 <+> Time Out 5 <*> Procedure Myomectomy Hysteroscopic 12/02/19 15:49:20 Adjunct Teacher: JERONIMO Modifier: STEFANYR 1 <+> Time In 1 <*> Procedure Myomectomy Hysteroscopic 2 <+> Time In 2 <*> Procedure Myomectomy Hysteroscopic 3 <+> Time In 3 <+> Time Out 3 <*> Procedure Myomectomy Hysteroscopic 4 <+> Time In 4 <*> Procedure Myomectomy Hysteroscopic <+> 5 Case Attendee <+> 5 Role Performed <+> 5 Time In <+> 5 Procedure 12/02/19 15:11:56 Adjunct Teacher: WALTERIDSR Modifier: HOLLIDSR 3 <+> Case Attendee [...] [facility] IntraOp Case Times Audit 12/02/19 16:14:34 Adjunct Teacher: WALTERIDSR Modifier: HOLLIDSR <+> 1 Out Room Time <+> 1 Stop Time 12/02/19 16:04:01 Adjunct Teacher: WALTERIDSR Modifier: HOLLIDSR <+> 1 Stop Time 12/02/19 15:39:00 Adjunct Teacher: WALTERIDSR Modifier: HOLLIDSR <+> 1 Start Time [...] IntraOp Departure from OR Audit 12/02/19 15:11:36 Adjunct Teacher: JERONIMO Modifier: JERONIMO <+> 1 Transfer to <+> 1 Handoff Method [facility] IntraOp Fire Risk Assessment Entry 1 Fire Info Surgical Site or 0- No Incision Above the Xyphoid Open O2 Source 0- No (Mask or Cannula) Available Ignition 0- No (ESU, Laser, Light Source) Fire Risk 0 Assessment Score Fire Score Fire Risk Yes Assessment Complete Fire Risk Foster Avilez fleet service manager Verified By Fire Risk 12/02/19 15:09:00 Assessment Verified Date/Time Fire Risk Last Modified By: Foster Avilez RN 12/02/19 15:09:44 [facility] IntraOp General Case Inspector Balance Wheel Motion 1 Case Information OR OR 07 [facility] Case Level 1 Room Verified Yes Wound Class II - Clean-Contaminated Specialty SN Gynecology Anesthesia Type General ASA Class 3 Diagnosis Preop Diagnosis AUB Postop Diagnosis refer to MD notes Last Modified By: Foster Avilez RN 12/02/19 15:28:51 [facility] IntraOp General Case Data Audit 12/02/19 15:28:51 Adjunct Teacher: JERONIMO Modifier: WALTERIDSR <+> 1 Room Verified 12/02/19 15:28:47 Adjunct Teacher: JERONIMO Modifier: WALTERIDSR <+> 1 ASA Class [...] Entry 1 Medication/Irrigant Monsels 500ml solution - [id number] Dose Administered By YOU HAWTHORNE MD-OBG Procedure [...] Intra Op Sign Out Audit 12/02/19 16:14:49 Adjunct Teacher: STEFANYR Modifier: HOLLIDSR <+> 1 RN Sign [...] [facility] IntraOp Surgical Procedures Audit 12/02/19 16:04:02 Adjunct Teacher: JERONIMO Modifier: WALTERIDSR <+> 1 Stop [facility] [...] RN 12/02/19 16:14 Electronically signed by Deyvi [facility] Conversion Psychiatric Tech Cerner at 07/09/2022 12:39 PM CDT documented in this encounter Plan of Treatment Not on file documented as of this encounter Visit Diagnoses Not on filedocumented in this encounter Care Teams Clipper Operator Relationship Specialty Start Date End Date Reina Olmedo, FORGING DIE FINISHER [address] [place] [address] PCP - General Nurse Practitioner 11/14/22 10/01/23 documented as of this encounter
--- OUTSIDE RECORDS SUMMARY | 2024-11-30 10:32 | XMS_ITS | Encounter Summary ---
Author Organization [employer] ([place], [place], [place], [place]) Address [address] [place] [address] Care Team Providers Care Children'S Counselor Name Role Phone Reina Olmedo APRN Primary Care Provider [phone] Encounter Details Date Type Department Care Team (Late st Contact Info) Description 08/03/2020 Transcribed Document [facility] [place] [address] [place] [address] ProviderVeronica MD [address] [place] [address] Social History Tobacco Use Types [...] YANE REBOLLEDO/Sex: 1970 Female Med Rec #: [id number] Physician: YOU HAWTHORNE MD-OBG Financial #: [id number] Pt. Type: O Room/Bed: [facility] Admit/Disch: 08/03/20 03:59:00 - Institution: [facility] Main OR PACU Case Times Entry 1 In PACU I 08/03/20 11:29:00 Ready for PACU 08/03/20 12:34:00 Discharge Discharge from PACU 08/03/20 12:34:00 I Last Modified By: REINA SANCHEZ, [id number]-KO-IVOP-OP CAR 08/03/20 12:34:23 [facility] Main OR PACU Case Times Audit 08/03/20 12:34:52 Back Seam Stitcher: [id number] Modifier: [id number] <+> 1 In PACU I Finalized By: REINA SANCHEZ, [id number]-OP CAR Document Signatures Signed By: REINA SANCHEZ, IFQ-CW-LPZN-OP CAR 08/03/20 12:34 documented in this encounter Plan of Treatment Not on file documented as of this encounter Visit Diagnoses Not on filedocumented in this encounter Care Teams Children'S Counselor Relationship Specialty Start Date End Date Reina Olmedo, INTERNAL COMMUNICATIONS SPECIALIST [address] [place] [address] PCP - General Nurse Practitioner 11/14/22 10/01/23 documented as of this encounter
--- OUTSIDE RECORDS SUMMARY | 2024-11-30 10:32 | XMS_ITS | Encounter Summary ---
Author Organization [employer] ([place], [place], [place], [place]) Address [address] [place] [address] Care Team Providers Care Pyrotechnics Press Tender Name Role Phone NellieReina hancock Nilsa TAMEZ Primary Care Provider [phone] Encounter Details Date Type Department Care Team (Late st Contact Info) Description 12/02/2019 Transcribed Document [facility] [place] [address] [place] [address] ProviderVeronica MD [address] [place] [address] Social History Tobacco Use [...] Veronica ProviderMD - 12/02/2019 4:44 PM CDT [place] [id number] YANE REBOLLEDO :1970 Visit Time:12/02/2019 What to [...] activities are safe for you. ??? Take tfah-ldn-muqneuw and prescription medicines only as told by [...] Reviewed: 10/24/2017 Elsevier Patient Education ?? 2020 [employer] Myomectomy, Care After This sheet gives [...] these instructions at home: Medicines ??? Take uvct-ahd-obahefq and prescription medicines only as told by [...] and water are not available, use hand linux unix administrator. ? Change your dressing as told [...] urine clear or pale yellow. ? Take almu-jju-piecdga or prescription medicines. ? Eat foods that [...] 07/31/2011 Document Revised: 02/20/2018 Document Reviewed: 04/10/2017 [employer] Patient Education ?? 2020 [employer] Hysteroscopy, Care After This sheet gives you [...] taking prescription pain medicines. Medicines ??? Take ckop-lgi-okzoisw and prescription medicines only as told by [...] urine clear or pale yellow. ? Take hxrd-ejm-tyizehs or prescription medicines. ? Eat foods that [...] 12/29/2013 Document Revised: 02/20/2018 Document Reviewed: 04/08/2017 [employer] Patient Education ?? 2020 [employer] acetaminophen and oxycodone (a SEET a MIN [...] may report side effects to FDA at 3-640-XXN-3920. What other drugs will affect acetaminophen and [...] affect acetaminophen and oxycodone, including prescription and muey-hci-akunxwn medicines, vitamins, and herbal products. Not all [...] to ensure that the information provided by [employer]. ('[employer]') is accurate, up-to-date, and complete, but no guarantee is made to that effect. Drug information contained herein may be time sensitive. [employer] information has been compiled for use by healthcare practitioners and consumers in the [place] and therefore [employer] does not warrant that uses outside of the [place] are appropriate, unless specifically indicated otherwise. [employer]'s drug information does not endorse drugs, diagnose patients or recommend therapy. [employer] drug information is an informational resource designed [...] effective or appropriate for any given patient. [facility] does not assume any responsibility for any aspect of healthcare administered with the aid of information [facility] provides. The information contained herein is not intended to cover all possible uses, directions, precautions, warnings, drug interactions, allergic reactions, or adverse effects. If you have questions about the drugs you are taking, check with your doctor, nurse or pharmacist. Copyright 3397-[address] [facility]. Version: .. Revision Date: 04/14/2019. ibuprofen (EYE bue PROE fen) Advil, Genpril, IBU, Midol IB, Motrin IB, Proprinal, Smart Sense Children's Ibuprofen What is the most important information I should know about ibuprofen? Ibuprofen can increase your risk of fatal heart attack or stroke, especially if you use it long-term or take high doses, or if you [...] stroke, especially if you use it terminal gauger supervisor or take high doses, or if you [...] may report side effects to FDA at 9-091-UHP-2196. What other drugs will affect ibuprofen? Ask [...] may interact with ibuprofen, including prescription and cwhs-duq-ynkvshf medicines, vitamins, and herbal products. Not all [...] to ensure that the information provided by [employer]. ('[employer]') is accurate, up-to-date, and complete, but no guarantee is made to that effect. Drug information contained herein may be time sensitive. [employer] information has been compiled for use by healthcare practitioners and consumers in the [place] and therefore [employer] does not warrant that uses outside of the [place] are appropriate, unless specifically indicated otherwise. [employer] drug information does not endorse drugs, diagnose patients or recommend therapy. [employer] drug information is an informational resource designed [...] effective or appropriate for any given patient. [employer] does not assume any responsibility for any aspect of healthcare administered with the aid of information [employer] provides. The information contained herein is not intended to cover all possible uses, directions, precautions, warnings, drug interactions, allergic reactions, or adverse effects. If you have questions about the drugs you are taking, check with your doctor, nurse or pharmacist. Copyright 0122-8765 [employer]. Version: 21.. Revision Date: 04/05/2019. Emergency Awareness [...] Assistance with quitting is available by contacting 6-820-PZNE-NOW. This is a free resource providing counseling, [...] 12:50 PM HCG Urine Qualitative: Negative Patient Name:MAAURYYANE I have received this information and was given the opportunity to ask questions. Patient/Tar Kettle Runner Name: Patient/Tar Kettle Runner Signature: Relationship to Patient: Clinician/Hospital Tar Kettle Runner Signature: Date: Electronically signed by Interface, [facility] Conversion Knuckle Strap Sewer Cerner at 07/09/2022 12:31 PM CDT documented in this encounter Plan of Treatment Not on file documented as of this encounter Visit Diagnoses Not on filedocumented in this encounter Care Teams Pyrotechnics Press Tender Relationship Specialty Start Date End Date , Reina Ash, HEAD REFRIGERATION ENGINEER [address] [place] [address] PCP - General Nurse Practitioner 11/14/22 10/01/23 documented as of this encounter
--- OUTSIDE RECORDS SUMMARY | 2024-11-30 10:32 | XMS_ITS | Encounter Summary ---
Author Organization [employer] ([place], [place], [place], [place]) Address [address] [place] [address] Care Team Providers Care Rotary Driller Name Role Phone Reina Olmedo APRN Primary Care Provider [phone] Encounter Details Date Type Department Care Team (Late st Contact Info) Description 08/03/2020 Transcribed Document [facility] [place] [address] [place] [address] ProviderVeronica MD [address] [place] [address] Social History Tobacco Use [...] ANGÉLICA REBOLLEDO/Sex: 1970 Female Med Rec #: [id number] Physician: YOU HAWTHORNE MD-OBG Financial #: [id number] Pt. Type: O Room/Bed: [facility] Admit/Disch: 08/03/20 03:59:00 - Institution: E IntraOp Case Attendance Entry 1 Entry 2 Entry 3 Case Attendee YOU HAWTHORNE Holliday, Stewart R, RN LOVELY VELEZ PA-C MD-OBG Role Performed Surgeon/Proceduralist, Market Intelligence Consultant, First Physician nutritional assistant First Time In 08/03/20 09:42:00 08/03/20 [...] BREANNA HOWE TAYLOR, SARAH, ST Sharp, Mark CORE COMPOSER MACHINE TENDER Role Performed CORE COMPOSER MACHINE TENDER/Nurse Cold Storage Supervisor Scrub, First Scrub, Second Time In 08/03/20 [...] E IntraOp Case Attendance Audit 08/03/20 11:31:44 Armorer Technician: JERONIMO Modifier: JERONIMO 1 <+> Time In [...] [facility] IntraOp Case Times Audit 08/03/20 11:31:43 Armorer Technician: WALTERIDSR Modifier: HOLLIDSR <+> 1 Out Room Time <+> 1 Stop Time 08/03/20 11:25:20 Armorer Technician: HOLLIDSR Modifier: HOLLIDSR <+> 1 Stop Time 08/03/20 10:06:00 Armorer Technician: WALTERIDSR Modifier: HOLLIDSR <+> 1 Start Time [...] 10:06:35 [facility] IntraOp Cautery Audit 08/03/20 10:06:35 Armorer Technician: JERONIMO Modifier: HOLLIDSR 1 <*> Cut Setting [...] [facility] IntraOp Counts Final Audit 08/03/20 11:11:48 Armorer Technician: WALTERADIN Modifier: WALTERIDSR 1 <*> Procedure Abdominal [...] Foster Avilez, Accompanied by RN, BREANNA HOWE, CORE COMPOSER MACHINE TENDER Last Modified By: Foster Avilez RN 08/03/20 [...] Yes Assessment Complete Fire Risk Foster Avilez winder operator Verified By Fire Risk 08/03/20 09:34:00 Assessment Verified Date/Time Fire Risk Standard Fire Yes Safety Precautions Followed Last Modified By: Foster Avilez RN 08/03/20 09:34:03 [facility] IntraOp General Case Drupal Architect 1 Case Information OR OR 07 [facility]JE Case Level 1 Room Verified Yes Wound Class II - Clean-Contaminated Specialty Gynecology Anesthesia Type General ASA Class 3 Diagnosis Preop Diagnosis pelvic pain, AUB Postop Diagnosis refer to MD notes Last Modified By: Foster Avilez RN 08/03/20 10:06:54 [facility] IntraOp General Case Data Audit 08/03/20 10:06:54 Armorer Technician: JERONIMO Modifier: JERONIMO <+> 1 ASA Class [...] 0.5% w/ epinephrine 1:200,000 30ml vial - [id number] Route of local Administration Dose Dose 30 [...] on filedocumented in this encounter Care Teams Rotary Driller Relationship Specialty Start Date End Date Reina Olmedo, FISHERIES MANAGER [address] [place] [address] PCP - General Nurse Practitioner 11/14/22 10/01/23 documented as of this encounter
--- OUTSIDE RECORDS SUMMARY | 2024-11-30 10:32 | XMS_ITS | Encounter Summary ---
Author Organization [employer] ([place], [place], [place], [place]) Address [address] [place] [address] Care Team Providers Care Computer Forwarding System Markup Clerk Name Role Phone NellieReina hancock Nilsa TAMEZ Primary Care Provider [phone] [phone] Encounter Details Date Type Department Care Team (Late st Contact Info) Description 12/02/2019 Transcribed Document [facility] [place] Family Medicine [address] [place] [address] ProviderVeronica MD [address] [place] [address] Social History Tobacco Use Types [...] Veronica ProviderMD - 12/02/2019 4:45 PM CDT [place] [id number] YANE REBOLLEDO :1970 Visit Time:12/02/2019 What to [...] activities are safe for you. ??? Take kgss-xir-jgayzye and prescription medicines only as told by [...] Reviewed: 10/24/2017 Elsevier Patient Education ?? 2020 [employer]tech S.A. Inc. Myomectomy, Care After This sheet gives [...] these instructions at home: Medicines ??? Take idwl-xnl-ldrayur and prescription medicines only as told by [...] and water are not available, use hand sample maker original. ? Change your dressing as told by [...] urine clear or pale yellow. ? Take riae-tdf-mbeaqlf or prescription medicines. ? Eat foods that [...] 07/31/2011 Document Revised: 02/20/2018 Document Reviewed: 04/10/2017 [employer] Patient Education ?? 2020 [employer]. Hysteroscopy, Care After This sheet gives you [...] taking prescription pain medicines. Medicines ??? Take lpwz-iol-woeickn and prescription medicines only as told by [...] urine clear or pale yellow. ? Take jpgx-lus-eiftwlx or prescription medicines. ? Eat foods that [...] 12/29/2013 Document Revised: 02/20/2018 Document Reviewed: 04/08/2017 [employer] Patient Education ?? 2020 [employer]ation. acetaminophen and oxycodone (a SEET a MIN [...] may report side effects to FDA at 4-843-BXV-5007. What other drugs will affect acetaminophen and [...] affect acetaminophen and oxycodone, including prescription and lwvj-wkm-psjasez medicines, vitamins, and herbal products. Not all [...] to ensure that the information provided by [employer]. ('Mult[employer]') is accurate, up-to-date, and complete, but no guarantee is made to that effect. Drug information contained herein may be time sensitive. [employer] information has been compiled for use by healthcare practitioners and consumers in the [place] and therefore [employer] does not warrant that uses outside of the [place] are appropriate, unless specifically indicated otherwise. [employer]'s drug information does not endorse drugs, diagnose patients or recommend therapy. [employer] drug information is an informational resource designed [...] effective or appropriate for any given patient. [facility] does not assume any responsibility for any aspect of healthcare administered with the aid of information [facility] provides. The information contained herein is not intended to cover all possible uses, directions, precautions, warnings, drug interactions, allergic reactions, or adverse effects. If you have questions about the drugs you are taking, check with your doctor, nurse or pharmacist. Copyright 7308-1667 [facility]. Version: .. Revision Date: 04/14/2019. ibuprofen (EYE bue PROE fen) Advil, Genpril, IBU, Midol IB, Motrin IB, Proprinal, Smart Sense Children's Ibuprofen What is the most important information I should know about ibuprofen? Ibuprofen can increase your risk of fatal heart attack or stroke, especially if you use it alf or take high doses, or if you [...] or stroke, especially if you use it remote computer terminal operator or take high doses, or if [...] may report side effects to FDA at 8-128-LJN-2303. What other drugs will affect ibuprofen? Ask [...] may interact with ibuprofen, including prescription and gfqy-qzt-owarija medicines, vitamins, and herbal products. Not all [...] to ensure that the information provided by [employer]. ('Multum') is accurate, up-to-date, and complete, but no guarantee is made to that effect. Drug information contained herein may be time sensitive. [employer] information has been compiled for use by healthcare practitioners and consumers in the [place] and therefore [employer] does not warrant that uses outside of the [place] are appropriate, unless specifically indicated otherwise. [employer] drug information does not endorse drugs, diagnose patients or recommend therapy. [employer] drug information is an informational resource designed [...] effective or appropriate for any given patient. [employer] does not assume any responsibility for any aspect of healthcare administered with the aid of information [employer] provides. The information contained herein is not intended to cover all possible uses, directions, precautions, warnings, drug interactions, allergic reactions, or adverse effects. If you have questions about the drugs you are taking, check with your doctor, nurse or pharmacist. Copyright 9423-9435 [employer]. Version: 21.. Revision Date: 04/05/2019. Emergency Awareness [...] Assistance with quitting is available by contacting 8-649-CZUK-NOW. This is a free resource providing counseling, [...] was given the opportunity to ask questions. Patient/Building Illuminating Engineer Name: Patient/Building Illuminating Engineer Signature: Relationship to Patient: Clinician/Hospital Building Illuminating Engineer Signature: Date: Electronically signed by Interface, [facility] Conversion Bottle Washing Machine Operator Cerner at 07/09/2022 12:14 PM CDT documented in this encounter Plan of Treatment Not on file documented as of this encounter Visit Diagnoses Not on filedocumented in this encounter Care Teams Computer Forwarding System Markup Clerk Relationship Specialty Start Date End Date , Reina Ash, ESTATE PLANNING COUNSELOR [address] [place] [address] PCP - General Nurse Practitioner 11/14/22 10/01/23 documented as of this encounter
--- OUTSIDE RECORDS SUMMARY | 2024-11-30 10:32 | XMS_ITS | Encounter Summary ---
Author Organization [employer] ([place], [place], [place], [place]) Address [address] [place] [address] Care Team Providers Care Outer Diameter Grinder Tool Name Role Phone Reina Olmedo DASHAWN Primary Care Provider [phone] Encounter Details Date Type Department Care Team (Late st Contact Info) Description 07/27/2020 Transcribed Document [facility] [place] Family Medicine [address] [place] [address] ProviderVeronica MD [address] [place] [address] Social History Tobacco Use Types [...] Veronica ProviderMD - 07/27/2020 2:48 PM CDT [facility] [place] [address] YANE REBOLLEDO :1970 Visit Time:07/27/2020 Your Visit Summary Your Care Team Admitting Physician - FABIENNE LU MD-CAR Attending Physician - FABIENNE LU MD-CAR Primary Care Physician - WILL BRIDGES, -[facility] Referring Physician - FABIENNE LU MD-CAR [...] weeks Comments Follow-up as instructed Where: [address] [place] [address]- Medications What How Much When Instructions Next [...] to thoroughly wash your hands, use hand sales service rep. While handwashing is best, hand sales service rep helps to reduce the spread of germs when you are out and about. Have hand sales service rep in several locations so you can always [...] keep people from also getting sick. Don???t [place] It! Sneezing this time of year is [...] different for every person. A diet and child nutrition manager (registered dietitian) can help you make a [...] of carbohydrates: ? hamburger bun or ?? [place] muffin. ? oz (15 mL) syrup. ? [...] foods that contain carbohydrates: ??? Rice. ??? [place]. ??? Milk. ??? Strawberries. 2. Calculate how [...] manage your diabetes. ??? A diet and child nutrition manager (registered dietitian) can help you make a meal plan and calculate how many carbohydrates you should have at each meal and snack. This information is not intended to replace advice given to you by your health care provider. Make sure you discuss any questions you have with your health care provider. Document Revised: 10/02/2017 Document Reviewed: 08/21/2016 LocalS[employer] Patient Education ?? 2020 LocalS[employer] Inc. Diabetes Mellitus and Nutrition, Adult When [...] that you work with a diet and child nutrition manager (dietitian) to make a meal plan that [...] provider. ??? Work with a counselor or business management consultant to identify strategies to manage stress and any emotional and social challenges. Questions to ask a health care provider ??? Do I need to meet with a business management consultant? Do I need to meet with a dietitian? What number can I call if I have questions? When are the best times to check my blood glucose? Where to find more information: ??? [place] Diabetes Association: diabetes.org ??? Academy of Nutrition and Dietetics: www.eatright.org ??? National Union of Diabetes and Digestive and Kidney Diseases (NIH): www.niddk.nih.gov Summary ??? A healthy meal plan will help you control your blood glucose and maintain a healthy lifestyle. ??? Working with a diet and child nutrition manager (dietitian) can help you make a meal [...] provider. Document Revised: 02/20/2018 Document Reviewed: 04/14/2017 LocalSense Patient Education ?? 2020 [employer] Inc. Coronary Angiogram A coronary angiogram is [...] including vitamins, herbs, eye drops, creams, and cfxt-eve-fqcixfy medicines. ??? Any problems you or family [...] do not normally take it. ??? Taking ruym-klc-hcetztn medicines, vitamins, herbs, and supplements. General instructions [...] provider. Document Revised: 09/30/2019 Document Reviewed: 09/30/2019 LocalSense Patient Education ?? 2020 [employer] Inc. Moderate Conscious Sedation, Adult, Care After [...] you are awake and alert. ??? Take hchl-dsa-htlepey and prescription medicines only as told by [...] provider. Document Revised: 02/20/2018 Document Reviewed: 06/29/2016 [employer] Patient Education ?? 2020 Myoonet. Radial Site Care This sheet gives you [...] these instructions at home: Medicines ??? Take fhhu-jqo-reupeou and prescription medicines only as told by your health care provider. Insertion site care ??? Follow instructions from your health care provider about how to take care of your insertion site. Make sure you: ? Wash your hands with soap and water before you change your bandage (dressing). If soap and water are not available, use hand sales service rep. ? Change your dressing as told by [...] provider. Document Revised: 04/15/2018 Document Reviewed: 04/15/2018 LocalSense Patient Education ?? 2020 [employer] Inc. Transradial Angiogram A transradial angiogram is [...] including vitamins, herbs, eye drops, creams, and mtth-qov-vcopcdw medicines. ??? Any problems you or family [...] tells you to take them. ??? Taking wmyz-gbi-jmnsdil medicines, vitamins, herbs, and supplements. Exams and [...] provider. Document Revised: 02/01/2019 Document Reviewed: 02/01/2019 LocalSense Patient Education ?? 2020 [employer]Sense Inc. Emergency Awareness and Preventative Care STROKE [...] Assistance with quitting is available by contacting 8-396-EHICNOW. This is a free resource providing counseling, [...] was given the opportunity to ask questions. Patient/Adapted Physical Education Aide Name: Patient/Adapted Physical Education Aide Signature: Relationship to Patient: Clinician/Hospital Adapted Physical Education Aide Signature: Date: documented in this encounter Plan of Treatment Not on file documented as of this encounter Visit Diagnoses Not on filedocumented in this encounter Care Teams Outer Diameter Grinder Tool Relationship Specialty Start Date End Date Reina, BUREAU DIRECTOR [address] [place] [address] PCP - General Nurse Practitioner 11/14/22 10/01/23 documented as of this encounter
--- OUTSIDE RECORDS SUMMARY | 2024-11-30 10:32 | XMS_ITS | Encounter Summary ---
Author Organization [employer] ([place], [place], [place], [place]) Address [address] [place] [address] Care Team Providers Care Rn Palliative Care Name Role Phone NellieReina hancock Nilsa TAMEZ Primary Care Provider [phone] Encounter Details Date Type Department Care Team (Late st Contact Info) Description 07/27/2020 Transcribed Document [facility] [place] Family Medicine [address] [place] [address] ProviderVeronica MD [address] [place] [address] Social History Tobacco Use Types [...] 07/27/2020 13:07 EDT Electronically signed by Deyvi [facility] Conversion Lay Out Inspector Cerner at 07/09/2022 12:17 PM CDT documented in this encounter Plan of Treatment Not on file documented as of this encounter Visit Diagnoses Not on filedocumented in this encounter Care Teams Rn Palliative Care Relationship Specialty Start Date End Date Reina, PILE DRIVER OPERATOR HELPER [address] [place] [address] PCP - General Nurse Practitioner 11/14/22 10/01/23 documented as of this encounter
--- OUTSIDE RECORDS SUMMARY | 2024-11-30 10:32 | XMS_ITS | Encounter Summary ---
Author Organization [employer] ([place], [place], [place], [place]) Address [address] [place] [address] Care Team Providers Care Leg Assembler Name Role Phone NellieReina hancock Nilsa TAMEZ Primary Care Provider [phone] Encounter Details Date Type Department Care Team (Late st Contact Info) Description 08/03/2020 Transcribed Document [facility] [place] Family Medicine [address] [place] [address] ProviderVeronica MD [address] [place] [address] Social History Tobacco Use Types [...] On: 08/03/2020 12:56 EDT by Dennis Gamino, Charge Entry Cert Meds to Bed Enrollment Patient Enrollment Decision: : Yes/enroll in meds to bed program Meds to Beds Comment : Dennis Bernal, Charge Entry Cert - 08/04/2020 11:46 EDT documented in this encounter Plan of Treatment Not on file documented as of this encounter Visit Diagnoses Not on filedocumented in this encounter Care Teams Leg Assembler Relationship Specialty Start Date End Date Reina, DISTRICT HOME ECONOMICS AGENT [address] [place] [address] PCP - General Nurse Practitioner 11/14/22 10/01/23 documented as of this encounter
--- OUTSIDE RECORDS SUMMARY | 2024-11-30 10:32 | XMS_ITS | Clinical Summary ---
Author Organization [employer] ([place], [place], [place], [place]) Address [address] [place] [address] Care Team Providers Care Operating Systems Programmer Name Role Phone Unavailable Primary Care Provider Unavailabl e Allergies Active Allergy Reactions Criticality Noted Date Comments Egg Hives,Itching,Rash High 01/06/2023 Green Gonzalez Hives,Itching,Rash High 01/06/2023 Hazelnut Hives,Itching,Rash High 01/06/2023 House Dust Mite 01/06/2023 Milk Hives,Itching,Rash High 01/06/2023 Mold Hives,Itching,Rash High 01/06/2023 Peanut Hives,Itching,Rash High 01/06/2023 Tomato Hives,Itching,Rash High 01/06/2023 Tree Pollen Hives,Itching,Rash High 01/06/2023 Scandia Hives,Itching,Rash High 01/06/2023 Medications aspirin 81 MG [...] 020 Immunizations Immunization Administration Dates Next Due (Shingrix, Recombinant, Adju vanted) Zoster Vaccine IM 12/27/2022 COVID-19 mRNA (PF)(LNP-S BIV ALENT) (Perez Cap) 12YR+ (PFIZER)([id number] 12/27/2022 Covid-19 Vaccine MRNA (PF) 1 2yr+ (Pfizer/BeavEx)([id number]) 01/26/2021,07/25/2020,06/29/2020 Covid-19 Vaccine MRNA(PF,Premixed)12YR+ (Pfizer/BeavEx)([id number]) 08/09/2021 Hepatitis A Adult 08/07/2018,01/06/2018 Influenza Four-QIV [...] Date Joshua rded Speak language other than Malaysian at home Not on file 04/09/2023 Want [...] Shingles Vaccine (Zoster) (2 of 2) 02/21/20232022 Hemoglobin A1C 02/04/2024 08/04/2023, 03/25, 01/06/2023, Additional history exists Tobacco Cessation Counseling and Screening (12+) 09/09/2024 09/10/2023 COVID-19 VACCINE (7 2024-2 6 season) 2024 12/27/2022, 12/24/2021, 08/09/2021, Additional history exists Influenza Vaccine (#1) 2024 , 12/24/2021, 02/05/2019, [...] - 08/05/2023 10:08 AM EDT Performed at: [facility] [address] [id number] Physically Impaired Teacher: Clive Martinez PhD, Phone: [phone] Reina Olmedo DIRECTOR OF COLLECTIONS LAB BLOOD ORDERABLES Becky l Result Performing Organization Address [facility] Co de Phone Number [facility] * (ABNORMAL) Lipid panel (08/04/2023 2:21 PM EDT) [facility] Cholesterol, Total 153 100 - 199 mg/dL [facility] Triglycerides 236(H) 0 - 149 mg/dL [facility] HDL Cholesterol 46 >39 mg/dL [facility] VLDL Cholesterol Lopez 38 5 - 40 mg/dL [facility] LDL Calculated 69 0 - 99 mg/dL [facility] Blood 08/04/2023 2:21 PM EDT 08/04/2023 Narrative [facility] - 08/05/2023 10:08 AM EDT Performed at: 01 - [facility] [address] [id number] Physically Impaired Teacher: Clive Martinez PhD, Phone: [phone] Reina Olmedo APRN LAB BLOOD ORDERABLES Becky l Result Performing Organization Address [facility] de Phone Number [facility] * HM MAMMOGRAPHY (11/11/2018) Anatomical Region Laterality Modality Other Historical Provider HEALTH MAINTENANCE Final Result from Last 3 Months or Most Recently Relevant to Health Maintenance Insurance [place] [id number]
--- OUTSIDE RECORDS SUMMARY | 2024-11-30 10:32 | XMS_ITS | Encounter Summary ---
Author Organization [employer] ([place], [place], [place], [place]) Address [address] [place] [address] Care Team Providers Care Brancher Name Role Phone Reina Olmedo DASHAWN Primary Care Provider [phone] Encounter Details Date Type Department Care Team (Late st Contact Info) Description 07/27/2020 Transcribed Document [facility] [place] Family Medicine [address] [place] [address] ProviderVeronica MD [address] [place] [address] Social History Tobacco Use Types [...] 07/27/2020 11:47 EDT Electronically signed by Deyvi [facility] Conversion Vehicle Assembler Cerner at 07/09/2022 12:38 PM CDT documented in this encounter Plan of Treatment Not on file documented as of this encounter Visit Diagnoses Not on filedocumented in this encounter Care Teams Brancher Relationship Specialty Start Date End Date Reina, PIE CRIMPING MACHINE OPERATOR [address] [place] [address] PCP - General Nurse Practitioner 11/14/22 10/01/23 documented as of this encounter
--- OUTSIDE RECORDS SUMMARY | 2024-11-30 10:32 | XMS_ITS | Encounter Summary ---
Author Organization [employer] ([place], [place], [place], [place]) Address [address] [place] [address] Care Team Providers Care Doll Wig Maker Name Role Phone Unavailable Primary Care Provider Unavailabl e Reason for Visit * Reason Comments Medication Refill Encounter Details Date Type Department Care Team (Late st Contact Info) Description 02/03/2024 Refill [facility] Primary Care [address] [address] Reina Olmedo, RESOURCE ROOM SPECIAL EDUCATION TEACHER [address] [place] [address] Social History Tobacco Use Types [...]
--- OUTSIDE RECORDS SUMMARY | 2024-11-30 10:32 | XMS_ITS | Encounter Summary ---
Author Organization [employer] ([place], [place], [place], [place]) Address [address] [place] [address] Care Team Providers Care Shear Helper Name Role Phone Reina Olmedo APRN Primary Care Provider [phone] [phone] Encounter Details Date Type Department Care Team (Late st Contact Info) Description 08/03/2020 Transcribed Document [facility] [place] [address] [place] [address] ProviderVeronica MD [address] [place] [address] Social History Tobacco Use Types [...] YANE REBOLLEDO/Sex: 1970 Female Med Rec #: [id number] Physician: YOU HAWTHORNE MD-OBG Financial #: [id number] Pt. Type: O Room/Bed: [facility] Admit/Disch: 08/03/20 03:59:00 - Institution: [facility] PreOp Case Times Entry 1 In Preop 08/03/20 07:55:00 Ready for Holding 08/03/20 08:51:00 Room Patient Ready for 08/03/20 08:51:00 Surgery Patient Out of Preop 08/03/20 09:38:00 Patient Out of n/a Holding Room Last Modified By: CLINTON CASTAÑEDA RN 08/03/20 12:23:54 [facility] PreOp Case Times Audit 08/03/20 12:23:54 Intelligent Systems Engineer: IESHA Modifier: YULI <+> 1 Patient Out of Preop Finalized By: CLINTON CASTAÑEDA, RN Document Signatures Signed By: CLINTON CASTAÑEDA RN 08/03/20 12:23 documented in this encounter Plan of Treatment Not on file documented as of this encounter Visit Diagnoses Not on filedocumented in this encounter Care Teams Shear Helper Relationship Specialty Start Date End Date Reina Olmedo, COMMERCIAL CREDIT SPECIALIST [address] [place] [address] PCP - General Nurse Practitioner 11/14/22 10/01/23 documented as of this encounter
--- OUTSIDE RECORDS SUMMARY | 2024-11-30 10:32 | XMS_ITS | Encounter Summary ---
Author Organization [employer] ([place], [place], [place], [place]) Address [address] [place] [address] Care Team Providers Care Care Transport Nurse Name Role Phone NellieReina hancock Nilsa TAMEZ Primary Care Provider [phone] [phone] Encounter Details Date Type Department Care Team (Late st Contact Info) Description 07/27/2020 Transcribed Document [facility] [place] [facility] [place] [address] ProviderVeronica MD [address] [place] [address] Social History Tobacco Use Types [...] PROCEDURE: Standard left heart catheterization technique. A 5/6-Andorran sheath was placed in the right radial [...] at low cardiac risk for gynecological surgery. /[id number] Jun Hung MD SSL/AQ / SSL / MODL /[id number] CC: MD Dr. Lilia Ricardo Electronically signed by Tayler Carnes Conversion Group Reservations Coordinator Cerner at 07/09/2022 12:19 PM CDT documented in this encounter Plan of Treatment Not on file documented as of this encounter Visit Diagnoses Not on filedocumented in this encounter Care Teams Care Transport Nurse Relationship Specialty Start Date End Date FebReina hancock, OFFICE BOOKKEEPER [address] [place] [address] PCP - General Nurse Practitioner 11/14/22 10/01/23 documented as of this encounter
--- OUTSIDE RECORDS SUMMARY | 2024-11-30 10:32 | XMS_ITS | Encounter Summary ---
Author Organization [employer] ([place], [place], [place], [place]) Address [address] [place] [address] Care Team Providers Care Cone Baker Machine Name Role Phone Reina Olmedo DASHAWN Primary Care Provider [phone] [phone] Encounter Details Date Type Department Care Team (Late st Contact Info) Description 07/27/2020 Transcribed Document [facility] [place] Family Medicine [address] [place] [address] ProviderVeronica MD [address] [place] [address] Social History Tobacco Use Types [...] Veronica ProviderMD - 07/27/2020 2:50 PM CDT [facility] [place] [address] YANE REBOLLEDO :1970 Visit Time:07/27/2020 Your Visit Summary Your Care Team Admitting Physician - FABIENNE LU MD-CAR Attending Physician - FABIENNE LU MD-CAR Primary Care Physician - WILL BRIDGES, -[facility] Referring Physician - FABIENNE LU MD-CAR Your [...] weeks Comments Follow-up as instructed Where: [address] [facility] [address] [place] [address]- Medications What How Much When Instructions Next [...] to thoroughly wash your hands, use hand hard tile setter apprentice. While handwashing is best, hand hard tile setter apprentice helps to reduce the spread of germs when you are out and about. Have hand hard tile setter apprentice in several locations so you can always [...] keep people from also getting sick. Don???t [place] It! Sneezing this time of year is [...] of carbohydrates: ? hamburger bun or ?? Albanian muffin. ? oz (15 mL) syrup. ? [...] foods that contain carbohydrates: ??? Rice. ??? Atlantic. ??? Milk. ??? Strawberries. 2. Calculate how [...] provider. Document Revised: 10/02/2017 Document Reviewed: 08/21/2016 [employer] Patient Education ?? 2020 [employer] Diabetes Mellitus and Nutrition, Adult When [...] provider. ??? Work with a counselor or general office worker to identify strategies to manage stress and any emotional and social challenges. Questions to ask a health care provider ??? Do I need to meet with a general office worker? Do I need to meet with a dietitian? What number can I call if I have questions? When are the best times to check my blood glucose? Where to find more information: ??? [place] Diabetes Association: diabetes.org ??? Academy of Nutrition and Dietetics: www.eatright.org ??? National [place] of Diabetes and Digestive and Kidney Diseases [...] provider. Document Revised: 02/20/2018 Document Reviewed: 04/14/2017 [employer] Patient Education ?? 2020 [employer] Coronary Angiogram A coronary angiogram is [...] including vitamins, herbs, eye drops, creams, and wvzc-erx-mlreebg medicines. ??? Any problems you or family [...] do not normally take it. ??? Taking mwup-ytg-shubhzx medicines, vitamins, herbs, and supplements. General instructions [...] provider. Document Revised: 09/30/2019 Document Reviewed: 09/30/2019 [employer] Patient Education ?? 2020 [employer] Moderate Conscious Sedation, Adult, Care After [...] you are awake and alert. ??? Take djbp-vqf-mbglesu and prescription medicines only as told by [...] provider. Document Revised: 02/20/2018 Document Reviewed: 06/29/2016 [employer] Patient Education ?? 2020 [employer]. Radial Site Care This sheet gives you [...] these instructions at home: Medicines ??? Take fvmt-cma-mbwqnkh and prescription medicines only as told by your health care provider. Insertion site care ??? Follow instructions from your health care provider about how to take care of your insertion site. Make sure you: ? Wash your hands with soap and water before you change your bandage (dressing). If soap and water are not available, use hand hard tile setter apprentice. ? Change your dressing as told by [...] provider. Document Revised: 04/15/2018 Document Reviewed: 04/15/2018 [employer] Patient Education ?? 2020 [employer] Transradial Angiogram A transradial angiogram is [...] including vitamins, herbs, eye drops, creams, and cmkf-tqk-ybgrkxy medicines. ??? Any problems you or family [...] tells you to take them. ??? Taking ybeq-hex-ndbstyh medicines, vitamins, herbs, and supplements. Exams and [...] provider. Document Revised: 02/01/2019 Document Reviewed: 02/01/2019 [employer] Patient Education ?? 2020 [employer] Emergency Awareness and Preventative Care STROKE [...] Assistance with quitting is available by contacting 8-133-JYYXNOW. This is a free resource providing counseling, [...] was given the opportunity to ask questions. Patient/Line Cook Name: Patient/Line Cook Signature: Relationship to Patient: Clinician/Hospital Line Cook Signature: Date: documented in this encounter Plan of Treatment Not on file documented as of this encounter Visit Diagnoses Not on filedocumented in this encounter Care Teams Cone Baker Machine Relationship Specialty Start Date End Date Reina, BEFORE SCHOOL BABYSITTER [address] [place] [address] PCP - General Nurse Practitioner 11/14/22 10/01/23 documented as of this encounter
--- OUTSIDE RECORDS SUMMARY | 2024-11-30 10:33 | XMS_ITS | Encounter Summary ---
Author Organization [employer] ([place], [place], [place], [place]) Address [address] [place] [address] Care Team Providers Care Shirt Cleaner Name Role Phone Nelliekarissa Reina Ash APRN Primary Care Provider [phone] [phone] Encounter Details Date Type Department Care Team (Late st Contact Info) Description 07/26/2020 Transcribed Document [facility] [place] Family Medicine [address] [place] [address] ProviderVeronica MD [address] [place] [address] Social History Tobacco Use Types [...] Source : Stated Height Entry Format : [place] Height, Feet : 5 ft(Converted to: 152 cm, 60 Inch) Height, Inches : 0 Inch(Converted to: 0 ft 0 Inch, 0.00 cm) Clinical Height : 152.4 cm Weight Source : Standing scale Weight Entry Format : Bureau Clinical Dosing Weight : 127.73 kg Weight, Pounds : 281 lb Body Surface Area (BSA) : 2.16 m2 Body Mass Index : 55 kg/m2 (>HHI) [place] Body Weight : 45 kg RENZO MORRELL [...] RENZO MORRELL RN - 07/26/2020 13:15 EDT [place] Suicide Severity Rating Scale (C-SSRS) CSSRS Past [...] #2 Relationship : - Primary Language : [place] Citizen Preferred Communication Mode : Verbal Communication Barrier : None Proposal Manager Writer Needed : No RENZO MORRELL RN - [...] on filedocumented in this encounter Care Teams Shirt Cleaner Relationship Specialty Start Date End Date Reina Olmedo, ACOUSTICAL INSTALLER [address] [place] [address] PCP - General Nurse Practitioner 11/14/22 10/01/23 documented as of this encounter
--- OUTSIDE RECORDS SUMMARY | 2024-11-30 10:33 | XMS_ITS | Encounter Summary ---
Author Organization [employer] ([place], [place], [place], [place]) Address [address] [place] [address] Care Team Providers Care Lawnmower Mechanic Name Role Phone Nelliekarissa Reina Nilsa TAMEZ Primary Care Provider [phone] [phone] Encounter Details Date Type Department Care Team (Late st Contact Info) Description 08/16/2020 Transcribed Document [facility] Family Medicine [address] [place] [address] ProviderVeronica MD [address] [place] [address] Social History Tobacco Use Types [...] up at 8 or 8:30 a.m. Her Pryor score is 7. She notes snoring continuously [...] ahead and start CPAP in the interim. /[id number] Melinda Lopez MD PAC/AQ / PAC / MODL /[id number] CC: DASHAWN Castanon MD Electronically signed by [facility], [facility] Conversion Weather Reporter Cerner at 07/09/2022 12:13 PM CDT documented in this encounter Plan of Treatment Not on file documented as of this encounter Visit Diagnoses Not on filedocumented in this encounter Care Teams Lawnmower Mechanic Relationship Specialty Start Date End Date Reina Olmedo APRN [address] [place] [address] PCP - General Nurse Practitioner 11/14/22 10/01/23 documented as of this encounter
--- OUTSIDE RECORDS SUMMARY | 2024-11-30 10:33 | XMS_ITS | Encounter Summary ---
Author Organization [employer] ([place], [place], [place], [place]) Address [address] [place] [address] Care Team Providers Care Solar Energy Systems Designer Name Role Phone Reina Olmedo DASHAWN Primary Care Provider [phone] [phone] Encounter Details Date Type Department Care Team (Late st Contact Info) Description 07/27/2020 Transcribed Document [facility] [place] [address] [place] [address] ProviderVeronica MD [address] [place] [address] Social History Tobacco Use Types [...] Deyvi [facility] Conversion Oakes Machine Operator Cerner at 07/09/2022 12:13 PM CDT documented in this encounter Plan of Treatment Not on file documented as of this encounter Visit Diagnoses Not on filedocumented in this encounter Care Teams Solar Energy Systems Designer Relationship Specialty Start Date End Date Reina Olmedo, PUBLIC HEALTH WORKER [address] [place] [address] PCP - General Nurse Practitioner 11/14/22 10/01/23 documented as of this encounter
--- OUTSIDE RECORDS SUMMARY | 2024-11-30 10:33 | XMS_ITS | Encounter Summary ---
Author Organization [employer] ([place], [place], [place], [place]) Address [address] [place] [address] Care Team Providers Care Member Of The Legislative Council Name Role Phone Reina Olmeod DASHAWN Primary Care Provider [phone] [phone] Encounter Details Date Type Department Care Team (Late st Contact Info) Description 03/13/2021 Transcribed Document [facility] Family Medicine [address] [place] [address] ProviderVeronica MD [address] [place] [address] Social History Tobacco Use Types [...] - Historical ProviderMD - 03/13/2021 3:30 PM CARPET INSPECTOR JAZMYN Mary IntraOp Summary Primary Physician: CARINE AMATO MD-GAE Finalized Date/Time: 03/13/21 15:38:27 Pt. Name: YANE REBOLLEDO/Sex: 1970 Female Med Rec #: [id number] Physician: CARINE AMATO MD-GAE Financial #: [id number] Pt. Type: E Room/Bed: [facility] [place] [place] Admit/Disch: 03/13/21 12:24:00 - Institution: [facility] - Case Attendance Entry 1 Entry 2 Entry 3 Case Attendee CARINE AMATO FLEMING, SCOTT, -BARTOLOME ISSA APRN, MD-GAE PERSONNEL QUALITY ASSURANCE AUDITOR-ANS Role Performed Surgeon/Proceduralist, Anesthesiologist of PERSONNEL QUALITY ASSURANCE AUDITOR/Nurse Body Shop Mechanic First Record Time In 03/13/21 15:26:00 03/13/21 15:25:00 03/13/21 15:25:00 Time Out 03/13/21 15:38:00 03/13/21 15:38:00 03/13/21 15:38:00 Procedure Esophagogastroduodenosco Esophagogastroduodenosco Esophagogastroduodenosco py py py Other Attendee Superficial Wound Closed By: Last Modified By: Candy Bell Edmundson, Stephanie, Edmundson, Stephanie, JASSON 03/13/21 15:38:16 RN 03/13/21 15:38:16 RN 03/13/21 15:38:16 Entry 4 Entry 5 Case Attendee Onel Martin Edmundson, Stephanie, school cleanerAir Traffic Controller Center Role Performed Scrub, First Survival Specialist, First Time In 03/13/21 15:25:00 03/13/21 15:25:00 Time Out 03/13/21 15:38:00 03/13/21 15:38:00 Procedure Esophagogastroduodenosco Esophagogastroduodenosco py py Other Attendee Superficial Wound Closed By: Last Modified By: Candy Bell Edmundson, Stephanie, JASSON 03/13/21 15:38:16 RN 03/13/21 15:38:16 [facility] [place] - Case Attendance Audit 03/13/21 15:38:16 Strategic Planning Specialist: [id number] Modifier: [id number] 1 <+> Time Out 1 <*> Procedure Esophagogastroduodenoscopy 2 <+> Time Out 2 <*> Procedure Esophagogastroduodenoscopy 3 <+> Time Out 3 <*> Procedure Esophagogastroduodenoscopy 4 <+> Time Out 4 <*> Procedure Esophagogastroduodenoscopy 5 <+> Time Out 5 <*> Procedure Esophagogastroduodenoscopy 03/13/21 15:35:38 Strategic Planning Specialist: [id number] Modifier: [id number] 1 <*> Procedure Esophagogastroduodenoscopy 2 <*> Procedure Esophagogastroduodenoscopy 3 <*> Procedure Esophagogastroduodenoscopy 4 <*> Procedure Esophagogastroduodenoscopy 5 <*> Procedure Esophagogastroduodenoscopy 03/13/21 15:28:29 Strategic Planning Specialist: [id number] Modifier: [id number] 1 <*> Time In 03/13/21 15:25:00 1 [...] Endo - Case Times Audit 03/13/21 15:36:56 Strategic Planning Specialist: [id number] Modifier: [id number] <+> 1 Out Room Time <+> 1 Stop Time <+> 1 Stop Time 03/13/21 15:31:02 Strategic Planning Specialist: [id number] Modifier: [id number] <+> 1 Start Time [facility] - [...] Candy Bell, Accompanied by RN, BARTOLOME POND, NETWORK SYSTEMS ADMINISTRATOR, PERSONNEL QUALITY ASSURANCE AUDITOR-ANS Last Modified By: Candy Bell RN 03/13/21 15:28:46 [facility] [place] - Endoscopy Details [...] Modified By: Candy Bell RN 03/13/21 15:29:03 [facility] [place] - General Case Refrigeration Lead 1 Case Information [facility] Endo 01 E Case Level 1 Room Verified Yes Wound Class 2 - Clean-Contaminated Specialty Gastroenterology Anesthesia Type MAC ASA Class 3 Diagnosis Preop Diagnosis Dysphagia Postop Diagnosis Esophageal stricture w/dilitation. Mild gastritis. Wound Class Definitions Last Modified By: Candy Bell RN 03/13/21 15:37:40 [facility] [place] - General Case Data Audit 03/13/21 15:37:40 Strategic Planning Specialist: [id number] Modifier: [id number] <+> 1 Postop Diagnosis [facility] - [...] Modified By: Candy Bell RN 03/13/21 15:29:48 [facility] [place] - Intraoperative Equipment [...] Positioned By Candy Bell RN, BARTOLOME POND, NETWORK SYSTEMS ADMINISTRATOR, PERSONNEL QUALITY ASSURANCE AUDITOR-ANS, Onel Martin, Air Traffic Controller Center Position Verified Positioning Yes Verified by Surgeon Last Modified By: Candy Bell RN 03/13/21 15:35:39 [facility] - Patient Positioning Audit 03/13/21 15:35:39 Strategic Planning Specialist: [id number] Modifier: [id number] 1 <*> Procedure Esophagogastroduodenoscopy [facility] - Sign In Entry 1 Patient, Site, Yes Procedure Identified Surgical Consent Yes Confirmed Surgical Site N/A Marked by person performing procedure Allergies No Airway Hypothermia Risk No Warming Measures Yes Taken Last Modified By: Candy Bell RN 03/13/21 15:37:50 [facility] - Sign In Audit 03/13/21 15:37:50 Strategic Planning Specialist: [id number] Modifier: [id number] <+> 1 Surgical Consent Confirmed [facility] [...] 15:36:00 Physician States Cecum Reached Anesthesia Type [facility] Specialty Gastroenterology Wound Class 2 - Clean-Contaminated Last Modified By: Candy Bell RN 03/13/21 15:38:24 [facility] - Surgical Procedures Audit 03/13/21 15:38:24 Strategic Planning Specialist: [id number] Modifier: [id number] <+> 1 Stop <+> 2 Stop <+> 3 Stop <+> 4 Stop 03/13/21 15:35:28 Strategic Planning Specialist: [id number] Modifier: [id number] <+> 1 Start <+> 2 Procedure <+> [...] <+> 4 Additional Procedure Description 03/13/21 15:30:57 Strategic Planning Specialist: [id number] Modifier: [id number] 1 <*> Procedure Esophagogastroduodenoscopy 1 <+> Specialty [...] Endo - Time Out Audit 03/13/21 15:35:40 Strategic Planning Specialist: [id number] Modifier: [id number] 1 <*> Procedure to be Performed Esophagogastroduodenoscopy Case Comments <None> Finalized By: Candy Bell RN Document Signatures Signed By: Candy Bell RN 03/13/21 15:38 Electronically signed by [facility] Conversion Air/Ocean Export Clerk Cerner at 07/09/2022 12:12 PM CDT documented in this encounter Plan of Treatment Not on file documented as of this encounter Visit Diagnoses Not on filedocumented in this encounter Care Teams Member Of The Legislative Council Relationship Specialty Start Date End Date Reina Olmedo, NETWORK SYSTEMS ADMINISTRATOR [address] [place] [address] PCP - General Nurse Practitioner 11/14/22 10/01/23 documented as of this encounter
--- OUTSIDE RECORDS SUMMARY | 2024-11-30 10:33 | XMS_ITS | Encounter Summary ---
Author Organization [employer] ([place], [place], [place], [place]) Address [address] [place] [address] Care Team Providers Care Visual And Stock Associate Name Role Phone Reina Olmedo APRN Primary Care Provider [phone] [phone] Reason for Visit * Reason Onset Date Comments Medication Refill 02/04/2023 Encounter Details Date Type Department Care Team (Late st Contact Info) Description 02/04/2023 Refill [facility] Primary Care - [address] [address] Reina Olmedo APRN [address] [place] [address] Social History Tobacco Use Types Packs/Day [...] MA - 02/04/2023 4:28 PM EST Refill SIFIED ADVERTISING CLERK documented in this encounter Plan of Treatment Not on file documented as of this encounter Visit Diagnoses Not on filedocumented in this encounter Care Teams Visual And Stock Associate Relationship Specialty Start Date End Date FebReina hancock, SOCIOLOGY INSTRUCTOR [address] [place] [address] PCP - General Nurse Practitioner 11/14/22 10/01/23 documented as of this encounter
--- OUTSIDE RECORDS SUMMARY | 2024-11-30 10:33 | XMS_ITS | Encounter Summary ---
Author Organization [employer] ([place], [place], [place], [place]) Address [address] [place] [address] Care Team Providers Care Kindergartners Helper Name Role Phone Reina Olmedo DASHAWN Primary Care Provider [phone] -[phone] Encounter Details Date Type Department Care Team (Late st Contact Info) Description 03/13/2021 Transcribed Document [facility] [place] Family Medicine [address] [place] [address] ProviderVeronica MD [address] [place] [address] Social History Tobacco Use Types [...] - Veronica ProviderMD - 03/13/2021 3:38 PM EDUCATIONAL RESOURCE CENTER TEACHER Patient: YANE REBOLLEDO Age: 50 years Sex: Female : 1970 Associated Diagnoses: None Author: CARINE RAMEY MD-[facility] Upper Endoscopy Procedure Report: Esophagogastroduodenoscopy with cold [...] The entire esophagus was dilated to 60 Nepalese/20 mm with a TTS hydrostatic balloon. There [...] on filedocumented in this encounter Care Teams Kindergartners Helper Relationship Specialty Start Date End Date Reina Olmedo, VISION MIXER [address] [place] [address] PCP - General Nurse Practitioner 11/14/22 10/01/23 documented as of this encounter
--- OUTSIDE RECORDS SUMMARY | 2024-11-30 10:33 | XMS_ITS | Encounter Summary ---
Author Organization [employer] ([place], [place], [place], [place]) Address [address] [place] [address] Care Team Providers Care Database Design Analyst Name Role Phone Reina Olmedo DASHAWN Primary Care Provider +1 [phone] Encounter Details Date Type Department Care Team (Late st Contact Info) Description 07/27/2020 Transcribed Document [facility] [facility] [place] [address] [place] [address] ProviderVeronica MD [address] [place] [address] Social History Tobacco Use Types [...] 8:43 EDT Electronically signed by De[facility] Conversion Certified Income Tax Preparer Cerner at 07/09/2022 12:13 PM CDT documented in this encounter Plan of Treatment Not on file documented as of this encounter Visit Diagnoses Not on filedocumented in this encounter Care Teams Database Design Analyst Relationship Specialty Start Date End Date Reina, MEDICAL EDUCATION MANAGER [address] [place] [address] PCP - General Nurse Practitioner 11/14/22 10/01/23 documented as of this encounter
--- OUTSIDE RECORDS SUMMARY | 2024-11-30 10:33 | XMS_ITS | Encounter Summary ---
Author Organization [employer] ([place], [place], [place], [place]) Address [address] [place] [address] Care Team Providers Care Oil Burner Installer Name Role Phone Nelliekarissa Reina Nilsa TAMEZ Primary Care Provider +1 -[phone] Encounter Details Date Type Department Care Team (Late st Contact Info) Description 07/27/[address] [facility] [place] Family Medicine [address] [place] [address] ProviderVeronica MD [address] [place] [address] Social History Tobacco Use Types [...] Source : Stated Height Entry Format : [place] Height, Feet : 5 ft(Converted to: 152 cm, 60 Inch) Height, Inches : 0 Inch(Converted to: 0 ft 0 Inch, 0.00 cm) Clinical Height : 152.4 cm Weight Source : Standing scale Weight Entry Format : [place] Clinical Dosing Weight : 127.73 kg Weight, Pounds : 281 lb Body Surface Area (BSA) : 2.16 m2 Body Mass Index : 55 kg/m2 (>HHI) [place] Body Weight : 45 kg LETY WASSERMAN [...] LETY WASSERMAN RN - 07/27/2020 8:19 EDT [place] Suicide Severity Rating Scale (C-SSRS) CSSRS Past [...] Ambulatory Legal Guardian : Mother Support Person/Patient Pageant Director : Yes Want Family/Rep/Phys Notified of Admit : No Emergency Contact #1 : Meryl Emergency Contact #1 Emergency Contact #1 Relationship : mother Emergency Contact #2 : n/a Emergency Contact #2 Phone Number : n/a Emergency Contact #2 Relationship : n/a Chief Complaint : L/C Information Obtained From : Patient Primary Language : [place]ese Preferred Communication Mode : Verbal Communication Barrier : None Manager Philosophy Needed : No LETY WASSERMAN RN - [...] Scale Risk Level : 0-24 Low Risk [place] Fall Interventions : Adequate lighting, Assistive devices [...] on filedocumented in this encounter Care Teams Oil Burner Installer Relationship Specialty Start Date End Date Reina Olmedo, CAR SEAT MAKER [address] [place] [address] PCP - General Nurse Practitioner 11/14/22 10/01/23 documented as of this encounter
--- OUTSIDE RECORDS SUMMARY | 2024-11-30 10:33 | XMS_ITS | Encounter Summary ---
Author Organization [employer] ([place], [place], [place], [place]) Address [address] [place] [address] Care Team Providers Care Soft Boarder Name Role Phone NellieReina hancock Nilsa TAMEZ Primary Care Provider +1 -[phone] Encounter Details Date Type Department Care Team (Late st Contact Info) Description 03/13/2021 Transcribed Document [facility] Family Medicine [address] [place] [address] ProviderVeronica MD [address] [place] [address] Social History Tobacco Use Types [...] - Veronica ProviderMD - 03/13/2021 3:41 PM BILLING SPECIALIST Patient Education Materials Follows: ESOPHAGOGASTRODUODENOSCOPY Care After [...] these instructions at home: Medicines ??? Take zncj-txj-gdrtywn and prescription medicines only as told by [...] provider. Document Revised: 07/28/2018 Document Reviewed: 07/28/2018 [employer] Patient Education ? 2020 [employer]. documented in this encounter Plan of Treatment Not on file documented as of this encounter Visit Diagnoses Not on filedocumented in this encounter Care Teams Soft Boarder Relationship Specialty Start Date End Date Reina Olmedo, PERSONNEL ASSOCIATE [address] [place] [address] PCP - General Nurse Practitioner 11/14/22 10/01/23 documented as of this encounter
--- OUTSIDE RECORDS SUMMARY | 2024-11-30 10:33 | XMS_ITS | Encounter Summary ---
Author Organization [employer] ([place], [place], [place], [place]) Address [address] [place] [address] Care Team Providers Care Card Processing Clerk Name Role Phone Reina Olmedo DASHAWN Primary Care Provider +1 [phone] Encounter Details Date Type Department Care Team (Late st Contact Info) Description 08/04/2020 Transcribed Document [facility] [place] Family Medicine [address] [place] [address] ProviderVeronica MD [address] [place] [address] Social History Tobacco Use Types [...] Veronica ProviderMD - 08/04/2020 12:18 [place] [address] YANE REBOLLEDO :1970 Visit Time:08/03/2020 Your Visit [...] When 08/15/2020 02:00 PM EDT Where: [address] [place] [address]- Medications What How Much When Instructions Next Dose acetaminophen-oxyCODONE (Percocet 5/ 325 oral tablet) 1 Tablet(s) Oral Every 6 Hours not to exceed 12 tablets/ day Pickup at [facility] ibuprofen (ibuprofen 800 mg oral tablet) 1 Tablet(s) Oral Every 6 Hours not to exceed 3200 mg/ day Pickup at [facility] 08/04/20 at 6pm aspirin (aspirin 81 [...] 2 Tablet(s) Oral At Bedtime Pharmacy Information [facility]: [address] [place] [address] [phone] Take your medications faithfully. Do NOT skip [...] and water are not available, use hand physical scientist. ? Change or remove your dressing as [...] Do not have sex. Medicines ??? Take wyil-ghw-huixfae and prescription medicines only as told by your health care provider. ??? Ask your health care provider if the medicine prescribed to you: ? Requires you to avoid driving or using heavy machinery. ? Can cause constipation. You may need to take actions to prevent or treat constipation, such as: ? Drink enough fluid to keep your urine pale yellow. ? Take whzp-qbp-vguvbuu or prescription medicines. ? Eat foods that [...] provider. Document Revised: 03/01/2019 Document Reviewed: 03/01/2019 DigiMeld Patient Education ?? 2020 Precognate. Total Laparoscopic Hysterectomy, Care After This sheet [...] and water are not available, use hand physical scientist. ? Change your dressing as told by [...] by your health care provider. ??? Take bhke-ktv-pgvdedf and prescription medicines only as told by [...] urine clear or pale yellow. ? Take miba-wmj-nvjkahw or prescription medicines. ? Eat foods that [...] provider. Document Revised: 02/20/2018 Document Reviewed: 05/21/2017 [employer]eld Patient Education ?? 2020 Precognate. acetaminophen and oxycodone (a SEET a MIN [...] may report side effects to FDA at 7-286-JEV-1246. What other drugs will affect acetaminophen and [...] affect acetaminophen and oxycodone, including prescription and dgxt-kul-ceyaxyr medicines, vitamins, and herbal products. Not all [...] to ensure that the information provided by [employer]. ('Multum') is accurate, up-to-date, and complete, but no guarantee is made to that effect. Drug information contained herein may be time sensitive. Medication Review information has been compiled for use by healthcare practitioners and consumers in the [place] and therefore Medication Review does not warrant that uses outside of the [place] are appropriate, unless specifically indicated otherwise. Medication Review's drug information does not endorse drugs, diagnose patients or recommend therapy. Nekteds drug information is an informational resource designed [...] effective or appropriate for any given patient. Medication Review does not assume any responsibility for any aspect of healthcare administered with the aid of information Medication Review provides. The information contained herein is not intended to cover all possible uses, directions, precautions, warnings, drug interactions, allergic reactions, or adverse effects. If you have questions about the drugs you are taking, check with your doctor, nurse or pharmacist. Copyright 2270-1787 [employer]. Version: 20.03. Revision Date: 04/28/2020. ibuprofen (EYE [...] may report side effects to FDA at 5-658-VTC-6123. What other drugs will affect ibuprofen? Ask [...] drugs may affect ibuprofen, including prescription and zbzp-yty-idzudoj medicines, vitamins, and herbal products. Not all [...] to ensure that the information provided by [employer]. ('Multum') is accurate, up-to-date, and complete, but no guarantee is made to that effect. Drug information contained herein may be time sensitive. Medication Review information has been compiled for use by healthcare practitioners and consumers in the [place] and therefore Medication Review does not warrant that uses outside of the [place] are appropriate, unless specifically indicated otherwise. Nekteds drug information does not endorse drugs, diagnose patients or recommend therapy. D4P drug information is an informational resource designed [...] effective or appropriate for any given patient. Medication Review does not assume any responsibility for any aspect of healthcare administered with the aid of information Medication Review provides. The information contained herein is not intended to cover all possible uses, directions, precautions, warnings, drug interactions, allergic reactions, or adverse effects. If you have questions about the drugs you are taking, check with your doctor, nurse or pharmacist. Copyright 1586-5569 [employer]. Version: 22.01. Revision Date: 02/16/2020. Emergency Awareness [...] Assistance with quitting is available by contacting 3-677-CUXI-NOW. This is a free resource providing counseling, [...] range between ( 1.0 and 7.0 ) Darke #: 0.79 K/uL -- Normal range between ( 0.24 and 0.82 ) Eos #: 0.01 K/uL -- Normal range between ( 0.04 and 0.54 ) Darke %: 7.5 % -- Normal range between [...] given the opportunity to ask questions. Patient/Family And Consumer Education Teacher Name: Patient/Family And Consumer Education Teacher Signature: Relationship to Patient: Clinician/Hospital Family And Consumer Education Teacher Signature: Date: documented in this encounter Plan of Treatment Not on file documented as of this encounter Visit Diagnoses Not on filedocumented in this encounter Care Teams Card Processing Clerk Relationship Specialty Start Date End Date FebReina hancock APRN [address] [place] [address] PCP - General Nurse Practitioner 11/14/22 10/01/23 documented as of this encounter
--- OUTSIDE RECORDS SUMMARY | 2024-11-30 10:33 | XMS_ITS | Encounter Summary ---
Author Organization [employer] ([place], [place], [place], [place]) Address [address] [place] [address] Care Team Providers Care Welder Gas Tungsten Arc Name Role Phone Reina Olmedo DASHAWN Primary Care Provider [phone] [phone] Encounter Details Date Type Department Care Team (Late st Contact Info) Description 03/13/2021 Transcribed Document [facility] [place] Family Medicine [address] [place] [address] ProviderVeronica MD [address] [place] [address] Social History Tobacco Use Types [...] - Historical ProviderMD - 03/13/2021 3:30 PM ACQUISITIONS LIBRARIAN [facility] Endo PACU Summary Primary Physician: CARINE AMATO MD-GAE Finalized Date/Time: 03/13/21 16:11:33 Pt. Name: YANE REBOLLEDO/Sex: 1970 Female Med Rec #: [id number] Physician: CARINE AMATO MD-GAE Financial #: [id number] Pt. Type: E Room/Bed: [facility]/ Admit/Disch: 03/13/21 12:24:00 - 03/13/21 15:47:00 Institution: [facility] Mary PACU Case Times Entry 1 In PACU I 03/13/21 15:39:00 Ready for PACU 03/13/21 16:03:00 Discharge Discharge from PACU 03/13/21 16:11:00 I [facility] Endo PACU Case Times Audit 03/13/21 16:11:32 Soil Chemist: [id number] Modifier: [id number] <+> 1 Ready for PACU Discharge <+> 1 Discharge from PACU I Finalized By: Lolis Ivan RN-PATIENT CARE BEDSIDE NON-EXEMPT Document Signatures Signed By: Lolis Ivan RN-PATIENT CARE BEDSIDE NON-EXEMPT 03/13/21 16:11 documented in this encounter Plan of Treatment Not on file documented as of this encounter Visit Diagnoses Not on filedocumented in this encounter Care Teams Welder Gas Tungsten Arc Relationship Specialty Start Date End Date Reina Olmedo, WELDER FITTER [address] [place] [address] PCP - General Nurse Practitioner 11/14/22 10/01/23 documented as of this encounter
--- OUTSIDE RECORDS SUMMARY | 2024-11-30 10:33 | XMS_ITS | Encounter Summary ---
Author Organization [employer] ([place], [place], [place], [place]) Address [address] [place] [address] Care Team Providers Care Accounts Payable Bookkeeper Name Role Phone NellieReina hancock Nilsa TAMEZ Primary Care Provider +1 [phone] Encounter Details Date Type Department Care Team (Late st Contact Info) Description 11/08/2020 Transcribed Document [facility] [place] Family Medicine [place] [address] ProviderVeronica MD [address] [place] [address] Social History Tobacco Use Types [...] Ms. Oconnor and continue in her care. /[id number] Melinda Lopez MD PAC/AQ / PAC / MODL /[id number] CC: MD Holly Carlson APRN Electronically signed by [facility], [facility] Conversion Grease Maker Cerner at 07/09/2022 12:33 PM CDT documented in this encounter Plan of Treatment Not on file documented as of this encounter Visit Diagnoses Not on filedocumented in this encounter Care Teams Accounts Payable Bookkeeper Relationship Specialty Start Date End Date Reina APRN [address] [place] [address] PCP - General Nurse Practitioner 11/14/22 10/01/23 documented as of this encounter
--- OUTSIDE RECORDS SUMMARY | 2024-11-30 10:33 | XMS_ITS | Encounter Summary ---
Author Organization [employer] ([place], [place], [place], [place]) Address [address] [place] [address] Care Team Providers Care Dental Scheduler Name Role Phone NellieReina hancock Nilsa TAMEZ Primary Care Provider +1 [phone] Encounter Details Date Type Department Care Team (Late st Contact Info) Description 11/08/2020 Transcribed Document [facility] [place] Family Medicine [address] [place] [address] ProviderVeronica MD [address] [place] [address] Social History Tobacco Use Types [...] 84. Artifact was present at intervals. 7. Xqoz-vy-zucniowt snoring was present. IMPRESSION: Moderate obstructive sleep apnea. PLAN: The patient is scheduled to return to clinic to review data and treatment options. In the interim, she will be offered a trial of auto CPAP at 6-20 cm. /[id number] Melinda Lopez MD PAC/AQ / PAC / MODL /[id number] documented in this encounter Plan of Treatment Not on file documented as of this encounter Visit Diagnoses Not on filedocumented in this encounter Care Teams Dental Scheduler Relationship Specialty Start Date End Date Reina Olmedo, MERGERS AND ACQUISITIONS BANKER [address] [place] [address] PCP - General Nurse Practitioner 11/14/22 10/01/23 documented as of this encounter
--- OUTSIDE RECORDS SUMMARY | 2024-11-30 10:33 | XMS_ITS | Encounter Summary ---
Author Organization [employer] ([place], [place], [place], [place]) Address [address] [place] [address] Care Team Providers Care Sizing Machine Tender Name Role Phone Reina Olmedo DASHAWN Primary Care Provider +1 [phone] Encounter Details Date Type Department Care Team (Late st Contact Info) Description 03/13/2021 Transcribed Document [facility] [place] [facility] [place] [address] [place] [address] ProviderVeronica MD [address] [place] [address] Social History Tobacco Use Types [...] - Historical ProviderMD - 03/13/2021 2:30 PM FINANCIAL ANALYST INTERN [facility] Mary PreOp Summary Primary Physician: CARINE AMATO MD-GAE Finalized Date/Time: 03/13/21 14:22:39 Pt. Name: YANE REBOLLEDO/Sex: 1970 Female Med Rec #: [id number] Physician: CARINE AMATO MD-GAE Financial #: [id number] Pt. Type: E [place] [facility] [place] Admit/Disch: 03/13/21 12:24:00 - Institution: [facility] Mary [...] on filedocumented in this encounter Care Teams Sizing Machine Tender Relationship Specialty Start Date End Date Reina, HIGH SCHOOL HOME ECONOMICS TEACHER [address] [place] [address] PCP - General Nurse Practitioner 11/14/22 10/01/23 documented as of this encounter
--- OUTSIDE RECORDS SUMMARY | 2024-11-30 10:33 | XMS_ITS | Encounter Summary ---
Author Organization [employer] ([place], [place], [place], [place]) Address [address] [place] [address] Care Team Providers Care Baby Formula Mixer Name Role Phone Reina Olmedo APRN Primary Care Provider [phone] [phone] Encounter Details Date Type Department Care Team (Late st Contact Info) Description 03/01/[address] [facility] Primary Care - [place] [address] [place] [address] Reina Olmedo APRN [address] [place] [address] Social History Tobacco Use Types [...] - 03/01/2022 4:11 PM EST Notified confirmed ING SAW OPERATOR * Telephone Encounter - Reina Olmedo APRN - 03/01/2022 3:38 PM EST I will change her to vipin for temporary ING SAW OPERATOR * Telephone Encounter - Charlotte Mckee - 03/01/2022 12:33 PM EST Patient called in states Christopher is out nationwide- back order Pharmacy does not know when they will have it, was advised that other pharmacies do not have it at this time. Would like to see what Shara TAMEZ Recommends either making changes to her current medication or providing alternative Please advise ING SAW OPERATOR documented in this encounter Plan of Treatment Not on file documented as of this encounter Visit Diagnoses Not on filedocumented in this encounter Care Teams Baby Formula Mixer Relationship Specialty Start Date End Date Reina Olmedo APRN [address] [place] [address] PCP - General Nurse Practitioner 11/14/22 10/01/23 documented as of this encounter
--- OUTSIDE RECORDS SUMMARY | 2024-11-30 10:33 | XMS_ITS | Encounter Summary ---
Author Organization [employer] ([place], [place], [place], [place]) Address [address] [place] [address] Care Team Providers Care Engagement Mgr Name Role Phone NellieReina hancock Nilsa TAMEZ Primary Care Provider [phone] [phone] Reason for Visit * Reason Onset Date Comments Medication Refill 07/23/2023 Encounter Details Date Type Department Care Team (Late st Contact Info) Description 07/23/2023 Refill [facility] Cardiology - [address] [place] [address] Rosa Jean-Baptiste MD [address] [place] [address] Social History Tobacco Use Types Packs/Day Years [...] Date Joshua rded Speak language other than Burmese at home Not on file 04/09/2023 Want [...] on filedocumented in this encounter Care Teams Engagement Mgr Relationship Specialty Start Date End Date Reina Olmedo, TECHNICAL SALES CONSULTANT [address] [place] [address] PCP - General Nurse Practitioner 11/14/22 10/01/23 documented as of this encounter
--- OUTSIDE RECORDS SUMMARY | 2024-11-30 10:33 | XMS_ITS | Encounter Summary ---
Author Organization [employer] ([place], [place], [place], [place]) Address [address] [place] [address] Care Team Providers Care Message Clerk Name Role Phone NellieReina hancock Nilsa TAMEZ Primary Care Provider +1 [phone] Encounter Details Date Type Department Care Team (Late st Contact Info) Description 03/13/2021 Transcribed Document [facility] [place] Family Medicine [address] [place] [address] ProviderVeronica MD [address] [place] [address] Social History Tobacco Use Types [...] - Historical ProviderMD - 03/13/2021 2:07 PM BONUS CLERK Pre Procedure Adult Entered On: 03/13/2021 14:09 EST Performed On: 03/13/2021 14:07 EST by Vanna Durant Rn Height and Weight, Clinical Dosing Height Source : Stated Height Entry Format : [place] Height, Feet : 5 ft(Converted to: 152 cm, 60 Inch) Height, Inches : 0 Inch(Converted to: 0 ft 0 Inch, 0.00 cm) Clinical Height : 152.4 cm Weight Source : Standing scale Weight Entry Format : [place] Clinical Dosing Weight : 124.64 kg Weight, Pounds : 274.2 lb Body Surface Area (BSA) : 2.14 m2 Body Mass Index : 53.7 kg/m2 (>HHI) [place] Body Weight : 45 kg Vanna Durant [...] Vanna Durant Rn - 03/13/2021 14:07 EST [place] Suicide Severity Rating Scale (C-SSRS) CSSRS Past [...] 03/13/2021 14:07 EST General Info Support Person/Patient Zipper Repairer : Yes Want Family/Rep/Phys Notified of Admit : No Emergency Contact #1 : Meryl Emergency Contact #1 Emergency Contact #1 Relationship : mother Emergency Contact #2 : . Emergency Contact #2 Phone Number : . Emergency Contact #2 Relationship : . Primary Language : Japanese Preferred Communication Mode : Verbal Communication Barrier : None Candy Rolling Machine Operator Needed : No Vanna Durant Rn [...] Scale Risk Level : 0-24 Low Risk [place] Fall Interventions : Adequate lighting, Assistive devices [...] on filedocumented in this encounter Care Teams Message Clerk Relationship Specialty Start Date End Date Reina Olmedo, DASHAWN [address] [place] [address] PCP - General Nurse Practitioner 11/14/22 10/01/23 documented as of this encounter
--- OUTSIDE RECORDS SUMMARY | 2024-11-30 10:33 | XMS_ITS | Clinical Summary ---
Author Organization [facility] Address [address] [place] [address] Care Team Providers Care Business Intelligence Developer Name Role Phone Sonia Dumas Primary Care Provider [phone] Allergies Active Allergy Reactions Criticality Noted Date Comments Corylus Hives,Itching,Rash High 01/06/2023 Egg Solids, Whole Hives,Itching,Rash High 01/06/2023 Milk (Cow) Hives,Itching,Rash High 01/06/2023 Molds & Smuts Hives,Itching,Rash High 01/06/2023 Tomato Hives,Itching,Rash High 01/06/2023 Alma Hives,Itching,Rash High 01/06/2023 Medications aspirin 81 MG [...] a day. 4 Active ergocalciferol 1.25 MG (02009 UT) capsule Take 1 capsule (50,000 Units) [...] Health Maintenance Due Date Last Done Comments [facility]-Diabetes: Hemoglobin A1C 1970 [facility]-HIV Screening 1970 [facility]-Hepatitis C Screening 1970 [facility]-/Child/Adol SDOH Screenings 1970 Diabetes: Dental Exam 1982 [facility]- SDOH Screenings 1990 [facility]-Adult SDOH Screenings 1990 [facility]-Hepatitis B Vaccines (1 of 3 - 19+ 3-dose series) 12/17/1991 CT Colonography 2017 Colonoscopy 2017 [facility]-DNA 2017 FIT 2017 FOBT 2017 Sigmoidoscopy 2017 [facility]-Colorectal Cancer Screening 2017 [facility]-Breast Cancer Screening 2022 11/11/2018 [id number] Vaccine ( season) 2024 12/27/2022, 12/24/2021, 08/09/2021, Additional history exists [facility]-Influenza [...] Narrative SUNQUEST - 02/11/2011 4:50 PM EST [facility] MR #: [id number] [facility]ANE [facility] [id number] (Age: 40) FW Collect Date: 02/04/2011 00:00 Receipt Date: 02/05/2011 14:09 Page 1 DEPARTMENT OF PATHOLOGY AND LABORATORY MEDICINE CYTOPATHOLOGY REPORT Email: [email or web address] [phone] ATTENDING MD/Practitioner: Gregg Huerta MD Service: OBE Location: [facility] Reported: 02/11/2011 16:50 Collected: 02/04/2011 00:00 INTERPRETATION A. THIN PREP (CERVICAL/VAGINAL): NEGATIVE FOR INTRAEPITHELIAL LESION OR MALIGNANCY. SATISFACTORY FOR EVALUATION; TRANSFORMATION ZONE COMPONENT CANNOT BE DEFINITIVELY IDENTIFIED DUE TO THE PRESENCE OF ATROPHY OR OTHER HORMONAL CHANGES. Slide scanned and imaged by Attenex ThinPrep Imaging System with manual review of [...] results is suggested (please call Microbiology at [phone] for results). CLINICAL INFORMATION: Menstrual History: Other: absent Date of Last Menstrual Period: 09/2008 Contraceptive History: Hormonal Other Clinical Conditions: If ASCUS and > 24 years of age, HPV/DNA testing requested. SPECIMEN DESCRIPTION: A: THIN PREP (CERVICAL/VAGINAL) THIN PREP PROCESS CELLULAR ENHANCEMENT ICD: F: A; RT IMAGE [id number] SNOMED CODES: A; [id number] In cases where a pathologist has signed out the report, the service has been rendered in part by a resident. The signing pathologist has performed and is responsible for the reported pathologic evaluation. Nataliya Huerta MD LAB PATHOLOGY ORDERABLES Fin al Result SUNAugmentra from Last 3 Months or Most Recently Relevant to Health Maintenance Insurance [facility] MEDICAID Care Teams Business Intelligence Developer Relationship Specialty Start Date End Date Sonia Dumas PA [address] [place] [address] PCP - General 02/02/24
--- OUTSIDE RECORDS SUMMARY | 2024-11-30 10:33 | XMS_ITS | Encounter Summary ---
Author Organization [employer] ([place], [place], [place], [place]) Address [address] [place] [address] Care Team Providers Care Sales Service Coordinator Name Role Phone Reina Olmedo HUMAN PERFORMANCE PROFESSOR Primary Care Provider [phone] [phone] Encounter Details Date Type Department Care Team (Late st Contact Info) Description 08/04/2020 Transcribed Document [facility] Family Medicine [address] [place] [address] ProviderVeronica MD [address] [place] [address] Social History Tobacco Use Types [...] on filedocumented in this encounter Care Teams Sales Service Coordinator Relationship Specialty Start Date End Date Reina Olmedo, HUMAN PERFORMANCE PROFESSOR [address] [place] [address] PCP - General Nurse Practitioner 11/14/22 10/01/23 documented as of this encounter
--- OUTSIDE RECORDS SUMMARY | 2024-11-30 10:33 | XMS_ITS | Encounter Summary ---
Author Organization [employer] ([place], [place], [place], [place]) Address [address] [place] [address] Care Team Providers Care Rivet Hammer Machine Operator Name Role Phone Reina Olmedo ADMINISTRATIVE OFFICE SPECIALIST Primary Care Provider [phone] [phone] Reason for Visit * Reason Onset Date Comments Medication Refill 11/30/2022 Encounter Details Date Type Department Care Team (Late st Contact Info) Description 11/30/2022 Refill [facility] Primary Care [address] [address] Reina Olmedo, ADMINISTRATIVE OFFICE SPECIALIST [address] [place] [address] Social History Tobacco Use Types [...] on filedocumented in this encounter Care Teams Rivet Hammer Machine Operator Relationship Specialty Start Date End Date Reina Olmedo ADMINISTRATIVE OFFICE SPECIALIST [address] [place] [address] PCP - General Nurse Practitioner 11/14/22 10/01/23 documented as of this encounter
--- OUTSIDE RECORDS SUMMARY | 2024-11-30 10:33 | XMS_ITS | Encounter Summary ---
Author Organization [employer] ([place], [place], [place], [place]) Address [address] [place] [address] Care Team Providers Care Manager Renewable Energy Name Role Phone Reina Olmedo FAST FOOD FRY COOK Primary Care Provider [phone] [phone] Reason for Visit * Reason Onset Date Comments Medication Refill 02/25/2023 Encounter Details Date Type Department Care Team (Late st Contact Info) Description 02/25/2023 Refill [facility] Primary Care [facility] [address] [place] [address] Reina lOmedo FAST FOOD FRY COOK [address] [place] [address] Anxiety and depression Social History [...] depression documented in this encounter Care Teams Manager Renewable Energy Relationship Specialty Start Date End Date Reina Olmedo APRN [address] [place] [address] PCP - General Nurse Practitioner 11/14/22 10/01/23 documented as of this encounter
--- OUTSIDE RECORDS SUMMARY | 2024-11-30 10:33 | XMS_ITS | Encounter Summary ---
Author Organization [employer] ([place], [place], [place], [place]) Address [address] [place] [address] Care Team Providers Care Grease And Tallow Pumper Name Role Phone Reina Olmedo DASHAWN Primary Care Provider [phone] Encounter Details Date Type Department Care Team (Late st Contact Info) Description 03/13/2021 Transcribed Document [facility] [place] [address] [place] [address] ProviderVeronica MD [address] [place] [address] Social History Tobacco Use Types [...] - Historical ProviderMD - 03/13/2021 3:43 PM DIRECTOR [place] [address] [address] AMAURYYANE :1970 Visit Time:03/13/2021 What to do next Follow-Up Appointments Follow Up with CARINE AMATO MD-ASUNCION When Comments Please call the office if you have any questions or concerns. Where: [address] [place] [phone]- Medications What How Much When Instructions Next Dose aspirin (aspirin 81 mg oral delayed release tablet) 1 Tablet(s) Oral Every Day azelastine nasal (azelastine 137 mcg/ inh (0.1%) nasal spray) 2 [place](s) Nasal Two Times A Day citalopram (citalopram 10 mg oral tablet) 1 Tablet(s) Oral At Bedtime DULoxetine 60 Milligram(s) Oral Two Times A Day ergocalciferol (ergocalciferol 50,000 intl units (1.25 mg) oral capsule) 1 Capsule(s) Oral Weekly ergocalciferol (Vitamin D2 1.25 mg (50,000 intl units) oral capsule) Oral Weekly fluticasone nasal (fluticasone 50 mcg/ inh nasal spray) 1 [place](s) Nasal Every Day glimepiride 2 Milligram(s) Oral [...] these instructions at home: Medicines ??? Take ndbe-yck-fgieyug and prescription medicines only as told by [...] provider. Document Revised: 07/28/2018 Document Reviewed: 07/28/2018 ElsePolimax Patient Education ?? 2020 [employer]onic. ESOPHAGOGASTRODUODENOSCOPY Care After Read the instructions outlined [...] Assistance with quitting is available by contacting 4-274-JEVV-NOW. This is a free resource providing counseling, [...] was given the opportunity to ask questions. Patient/Deicer Inspector Pneumatic Name: Patient/Deicer Inspector Pneumatic Signature: Relationship to Patient: Clinician/Hospital Deicer Inspector Pneumatic Signature: Date: Electronically signed by Tayler Carnes Conversion Toggle Press Folder And Feeder Ilaner at 07/09/2022 12:32 PM CDT documented in this encounter Plan of Treatment Not on file documented as of this encounter Visit Diagnoses Not on filedocumented in this encounter Care Teams Grease And Tallow Pumper Relationship Specialty Start Date End Date Reina, INFRASTRUCTURE ANALYST [address] [place] [address] PCP - General Nurse Practitioner 11/14/22 10/01/23 documented as of this encounter
--- OUTSIDE RECORDS SUMMARY | 2024-11-30 10:33 | XMS_ITS | Encounter Summary ---
Author Organization [employer] ([place], [place], [place], [place]) Address [address] [place] [address] Care Team Providers Care Train Braker Name Role Phone Nelliekarissa Reina Nilsa TAMEZ Primary Care Provider [phone] Encounter Details Date Type Department Care Team (Late st Contact Info) Description 08/04/2020 Transcribed Document [facility] [place] Medicine [address] [place] [address] ProviderVeronica MD [address] [place] [address] Social History Tobacco Use Types [...] and water are not available, use hand furnace keeper. ? Change or remove your dressing as [...] Do not have sex. Medicines ??? Take fbvn-iqz-cacvvfe and prescription medicines only as told by your health care provider. ??? Ask your health care provider if the medicine prescribed to you: ? Requires you to avoid driving or using heavy machinery. ? Can cause constipation. You may need to take actions to prevent or treat constipation, such as: ? Drink enough fluid to keep your urine pale yellow. ? Take lbha-mex-dybtmxr or prescription medicines. ? Eat foods that [...] provider. Document Revised: 03/01/2019 Document Reviewed: 03/01/2019 Synchronized Patient Education ? 2020 Synchronized Inc. Total Laparoscopic Hysterectomy, Care After This [...] and water are not available, use hand furnace keeper. ? Change your dressing as told by [...] by your health care provider. ??? Take pdfs-bee-owbjhgu and prescription medicines only as told by [...] urine clear or pale yellow. ? Take tsqj-ijp-xirrhlx or prescription medicines. ? Eat foods that [...] provider. Document Revised: 02/20/2018 Document Reviewed: 05/21/2017 Synchronized Patient Education ? 2020 Awarepoint. documented in this encounter Plan of Treatment Not on file documented as of this encounter Visit Diagnoses Not on filedocumented in this encounter Care Teams Train Braker Relationship Specialty Start Date End Date Reina Olmedo, SENIOR PRODUCT ANALYST [address] [place] [address] PCP - General Nurse Practitioner 11/14/22 10/01/23 documented as of this encounter
--- OUTSIDE RECORDS SUMMARY | 2024-11-30 10:33 | XMS_ITS | Encounter Summary ---
Author Organization [email or web address] ([place], [place], [place], [place]) Address [address] [place] [address] Care Team Providers Care Nursing Faculty Name Role Phone Reina Olmedo APRN Primary Care Provider [phone] Encounter Details Date Type Department Care Team (Late st Contact Info) Description 12/02/2019 Transcribed Document [facility] [place] [address] [place] [address] ProviderVeronica MD [address] [place] [address] Social History Tobacco Use Types [...] YANE REBOLLEDO/Sex: 1970 Female Med Rec #: [id number] Physician: YOU HAWTHORNE MD-OBG Financial #: [id number] Pt. Type: O Room/Bed: [facility]/ Admit/Disch: 12/02/19 11:24:00 - Institution: [facility] PreOp Case Times Entry 1 In Preop 12/02/19 11:40:00 Ready for Holding n/a Room Patient Ready for 12/02/19 13:11:00 Surgery Patient Out of Preop 12/02/19 15:14:00 Patient Out of n/a Holding Room Last Modified By: CRISTINA JUAREZ RN 12/02/19 16:00:45 [facility] PreOp Case Times Audit 12/02/19 16:00:45 Mild Disabilities Teacher: YULI Modifier: [id number] <+> 1 Patient Out of Preop Finalized By: CRISTINA JUAREZ, RN Document Signatures Signed By: CRISTINA JUAREZ RN 12/02/19 16:01 documented in this encounter Plan of Treatment Not on file documented as of this encounter Visit Diagnoses Not on filedocumented in this encounter Care Teams Nursing Faculty Relationship Specialty Start Date End Date Reina Olmedo, BEAM CARRIER HAULER PUSHER [address] [place] [address] PCP - General Nurse Practitioner 11/14/22 10/01/23 documented as of this encounter
--- OUTSIDE RECORDS SUMMARY | 2024-11-30 10:33 | XMS_ITS | Encounter Summary ---
Author Organization [employer] ([place], [place], [place], [place]) Address [address] [place] [address] Care Team Providers Care Clinical Safety Specialist Name Role Phone Nelliekarissa Reina Ash APRN Primary Care Provider [phone] Encounter Details Date Type Department Care Team (Late st Contact Info) Description 12/02/2019 Transcribed Document [facility] [place] [address] [place] [address] Veronica Correa MD [address], [place] [address] Social History Tobacco Use Types Packs/Day Years [...] activities are safe for you. ??? Take upre-bhs-zwwqsba and prescription medicines only as told by [...] 06/16/2001 Document Revised: 03/13/2018 Document Reviewed: 10/24/2017 ElseJohn's Inc[employer] Patient Education ? 2020 Theme Travel News (TTN). Myomectomy, Care After This sheet gives you [...] these instructions at home: Medicines ??? Take opaa-hlg-mlsfqml and prescription medicines only as told by [...] and water are not available, use hand traffic observer. ? Change your dressing as told by [...] urine clear or pale yellow. ? Take nslq-mii-utglexg or prescription medicines. ? Eat foods that [...] 07/31/2011 Document Revised: 02/20/2018 Document Reviewed: 04/10/2017 ClearAccess Patient Education ? 2020 ClearAccess Inc. Hysteroscopy, Care After This sheet gives [...] taking prescription pain medicines. Medicines ??? Take sgsp-ldp-coyqccl and prescription medicines only as told by [...] urine clear or pale yellow. ? Take xlgq-vpg-xzdcaeu or prescription medicines. ? Eat foods that [...] 12/29/2013 Document Revised: 02/20/2018 Document Reviewed: 04/08/2017 ClearAccess Patient Education ? 2020 Theme Travel News (TTN). documented in this encounter Plan of Treatment Not on file documented as of this encounter Visit Diagnoses Not on filedocumented in this encounter Care Teams Clinical Safety Specialist Relationship Specialty Start Date End Date Reina Olmedo, SALES COACH [address] [place] [address] PCP - General Nurse Practitioner 11/14/22 10/01/23 documented as of this encounter
--- OUTSIDE RECORDS SUMMARY | 2024-11-30 10:33 | XMS_ITS | Encounter Summary ---
Author Organization [employer] ([place], [place], [place], [place]) Address [address] [place] [address] Care Team Providers Care Automatic Nailing Machine Feeder Name Role Phone Reina Olmedo APRN Primary Care Provider [phone] Encounter Details Date Type Department Care Team (Late st Contact Info) Description 12/03/2019 Transcribed Document [facility] HOSPICE PATIENT CARE SECRETARY - [email or web address] [address] [facility] [address] [place] [address] Radha Rodrigues MD [address], [address] [place] [address] Social History Tobacco Use Types Packs/Day Years [...] to the recovery room in stable condition. /[id number] Radha Rodrigues MD EE/AQ / EE / MODL /[id number] documented in this encounter Plan of Treatment Not on file documented as of this encounter Visit Diagnoses Not on filedocumented in this encounter Care Teams Automatic Nailing Machine Feeder Relationship Specialty Start Date End Date Reina Olmedo, MEMBER SERVICES COORDINATOR [address] [place] [address] PCP - General Nurse Practitioner 11/14/22 10/01/23 documented as of this encounter
--- OUTSIDE RECORDS SUMMARY | 2024-11-30 10:33 | XMS_ITS | Encounter Summary ---
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
--- OUTSIDE RECORDS SUMMARY | 2024-11-30 10:33 | XMS_ITS | Referral Summary ---
Author Organization [employer] ([place], [place], [place], [place]) Address [address] [place] [address] Care Team Providers Care Burnisher Name Role Phone Unavailable Primary Care Provider Unavailabl e Allergies Active Allergy Reactions Criticality Noted Date Comments Egg Hives,Itching,Rash High 01/06/2023 Green Gonzalez Hives,Itching,Rash High 01/06/2023 Hazelnut Hives,Itching,Rash High 01/06/2023 House Dust Mite 01/06/2023 Milk Hives,Itching,Rash High 01/06/2023 Mold Hives,Itching,Rash High 01/06/2023 Peanut Hives,Itching,Rash High 01/06/2023 Tomato Hives,Itching,Rash High 01/06/2023 Tree Pollen Hives,Itching,Rash High 01/06/2023 Holland Hives,Itching,Rash High 01/06/2023 Medications aspirin 81 MG [...] mRNA (PF)(LNP-S BIV ALENT) (Perez Cap) 12YR+ (PFIZER)([id number] 12/27/2022 Covid-19 Vaccine MRNA (PF) 1 2yr+ (Pfizer/[employer])([id number]) 01/26/2021,07/25/2020,06/29/2020 Covid-19 Vaccine MRNA(PF,Premixed)12YR+ ([employer])([id number]) 08/09/2021 Hepatitis A Adult 08/07/2018,01/06/2018 Influenza Four-QIV [...] Date Joshua rded Speak language other than Indonesian at home Not on file 04/09/2023 Want [...] AM EDT Performed at: 01 - [facility] [address] [id number] Procurement Professional: Clive Martinez PhD, Phone: [phone] Reina Olmedo APRN LAB BLOOD ORDERABLES Becky l Result Performing Organization Address [facility] de Phone Number [facility] * (ABNORMAL) Lipid panel (08/04/2023 2:21 PM EDT) [facility] Cholesterol, Total 153 100 - 199 mg/dL [facility] Triglycerides 236(H) 0 - 149 mg/dL [facility] HDL Cholesterol 46 >39 mg/dL [facility] VLDL Cholesterol Lopez 38 5 - 40 mg/dL [facility] LDL Calculated 69 0 - 99 mg/dL [facility] Blood 08/04/2023 2:21 PM EDT 08/04/2023 Narrative [facility] - 08/05/2023 10:08 AM EDT Performed at: 01 - [facility] [address] [id number] Procurement Professional: Clive Martinez PhD, Phone: [phone] Reina Olmedo APRN LAB BLOOD ORDERABLES Becky l Result Performing Organization Address [facility] Co de Phone Number [facility] * HM MAMMOGRAPHY (11/11/2018) Anatomical Region Laterality Modality Other Historical Provider HEALTH MAINTENANCE Final Result from Last 3 Months or Most Recently Relevant to Health Maintenance Insurance [facility]
--- OUTSIDE RECORDS SUMMARY | 2024-11-30 10:33 | XMS_ITS | Encounter Summary ---
Author Organization [employer] ([place], [place], [place], [place]) Address [address] [place] [address] Care Team Providers Care Household Appliance Repairer Name Role Phone Reina Olmedo DASHAWN Primary Care Provider [phone] Encounter Details Date Type Department Care Team (Late st Contact Info) Description 08/04/[address] [facility] [place] Family Medicine [address] [place] [address] ProviderVeronica MD [address] [place] [address] Social History Tobacco Use Types [...] Referral(s) Listed Discharge To Care Management : Home/Residential/Residential or Self Care -01 ARN[facility] HOYT SW - 08/04/2020 11:17 EDT Final Narrative Note Final Narrative Note : Pt to dc home with family transport, and f/u outpatient with Dr. Rodrigues. No dc needs noted. ARNOLD HOYT SW - 08/04/2020 11:17 EDT Electronically signed by Deyvi [facility] Conversion Wedding Transportation Driver Cerner at 07/09/2022 12:16 PM CDT documented in this encounter Plan of Treatment Not on file documented as of this encounter Visit Diagnoses Not on filedocumented in this encounter Care Teams Household Appliance Repairer Relationship Specialty Start Date End Date Reina, SINGLE CORNER CUTTER [address] [place] [address] PCP - General Nurse Practitioner 11/14/22 10/01/23 documented as of this encounter
== END 2024-11-29 23:59 | disposition home or self-care (01) ==
LOC: LAB.DROPOF 11-30 10:17
PROVIDERS: PCP Nurse Practitioner Family; Visit Provider Nurse Practitioner Family
DX: N17.9 Acute kidney failure, unspecified (principal); E11.9 Type 2 diabetes mellitus without complications
CPT/HCPCS: 80053; 81001; 82043; 82570; 87086; 87088

== ENCOUNTER 2024-12-15 15:07 | Outpatient (CLI) | payer MEDICAID, SELFPAY ==
--- OUTSIDE RECORDS SUMMARY | 2023-07-21 12:59 | XMS_ITS | Continuity of Care Document ---
Author Organization [facility] Address [address] [place] [address] Phone Care Team Providers Care Marketing Sales Supervisor Name Role Phone Higinio DIETRICH, PRODUCT DEVELOPMENT ACTUARY, Dayanna Unavailable Unavai lable Allergies, Adverse Reactions, [...] by mouth twice daily - Active Nystatin 291923 UNIT/GM External Cream APPLY CREAM TOPICALLY TO [...] Location Reason(s) For Visit Diagnoses Date Provider [facility], [address] [place], [address], [place] tel:[phone] [facility] [place] No Information 4 Sylvester Dayanna. [address] [place], [place], [id number] , [place]. tel: [phone] [facility], [address] [place] [address], [facility], tel:[phone] 72 [facility] [place] No Information 3 Sylvester Dayanna. [address] [place], [place], [id number] , [place]. tel: [phone] [facility], [address] [place] [address], [facility], tel:[phone] 72 [facility] [place] No Information 3 Sylvester Dayanna. [address] [place], [place], [id number] , [place]. tel: [phone] [facility], [address] [place] [address], [facility], tel:[phone] 72 [facility] [place] follow up on labs (chief complaint) ObesityType 2 diabetes mellitus without complicationsEssential (primary) hypertensionHypothyroid ism, unspecifiedIron deficiency anemiaBody mass index [BMI] 50.0-59.9, adultPain in left knee 3 Sylvester Dayanna. [address] [place], [place], [id number] , [place]. tel: [phone] [facility], [address] [place] [address], [facility], [place] tel:[phone] 72 [facility] [place] No Information 3 Sylvester Dayanna. [address] [place], [place], [id number] , [place]. tel: [phone] [facility], [address] [place] [address], [facility], tel:[phone] 72 [facility] [place] FASTING LABS (chief complaint) Essential (primary) hypertension 3 Sylvester Dayanna. [address] [place], [place], [id number] , [place]. tel:[phone] [facility], [address] [place] [address], [facility], tel:[phone] 72 [facility] [place] No Information 3 Sylvester Dayanna. [address] [place], [place], [id number] , [place]. tel:[phone] [facility], [address] [place] [address], [facility], tel:[phone] 72 [facility] [place] No Information 3 Sylvester Dayanna. [address] [place], [place], [id number] , . tel:[phone] [facility], [address] [place] [address], [facility], tel:[phone] 72 [facility] No Information 3 Sylvester Dayanna. [address] [place], [place], [id number] , [place]. tel: [facility], [address] [place] [address], [facility], tel:[phone] 72 [facility] No Information 3 Sylvester Dayanna. [address] [place], [place], [id number] , [place]. tel:[phone] [facility], [address] [place] [address], [facility], tel:[phone] 72 [facility] [place] establish care (chief complaint) Encounter for screening for depressionEncounter for screening examination for other mental health and behavioral disordersAnxietyDepress ion, unspecifiedEssential (primary) hypertensionHypothyroid ism, unspecifiedType 2 diabetes mellitus without complicationsVitamin D deficiency, unspecifiedGERD disease w/ esophagitis, w/o bleedingObesityBody mass index [BMI] 50.0-59.9, adultEncntr screen mammogram for malignant neoplasm of breast Higinio Alan. [address] [place], [place], [id number] , . [phone] Family History Family Member Type Diagnosis Age [...] egistry Payers Payer name Insurance type Covered libertarian ID Authoriza tion(s) [facility] [id number]- Medicaid Wellcare Wrap Payer [id number] Hc- Covered Under [place] [id number] Social History Type Description Quantity Date Captured Comments Sex Female Smoking Status No Information Sexual Orientation Straight or heterosexual July Gender Identity Female Chief Complaint And Reason For Visit No Information Plan Of Treatment Date Type Action Status Goal FOBT. Due on due Goal Dilated eye exam. Due on Oct due Goal Vitamin D. Due on 4 due Goal GFR. Due on due Goal HPV testing. Due on 023 due Goal Unhealthy drug use screening due Goal Hemoglobin A1C. Due on due Goal Foot exam. Due on 3 due Goal Generalized Anxi ety Disorder - 7 (BOLIVAR-7). Due on due Goal Tobacco Use Screening. Due o n due Goal Hepatitis C Screening due Goal CBC. Due on due Goal ECG. Due on due Goal Lipid panel. Due on 028 due Goal Drug Abuse Scree charles Test (DAST-10). Due on due Goal PAP. Due on due Goal Urine microalbumin. Due on A due Goal Influenza vaccine. Due on Oc due Goal Taking Statin Medication. Du e on due Goal ASCVD 10 year risk. Due on A due Goal Urinalysis. Due on due Goal Mammogram. Due on due Goal Diabetes screening. Due on J due Goal Obtain Height, Weight, and B AR. Due on due Goal HIV screen due Goal Depression screening. Due on due Goal Vitamin B12. Due on due Goal Pap/HPV testing. Due on due Goal TSH. Due on due Goal Pneumococcal vaccine due Goal Dental exam. Due on due Goal Hep B (1st). Due on due Goal CMP. Due on due Goal FIT. Due on due Goal Follow up Plan f or abnormal BMI (Less than 18.5, greater than 25). Due on due Goal Obtain blood Pressure. Due o n due Goal Lifestyle education regardin g diet completed Goal HIV screen due Goal Hemoglobin A1C. Due on due Goal Vitamin B12. Due on due Goal Foot exam. Due on due Goal Pap/HPV testing. Due on due Goal Obtain Height, Weight, and B AR. Due on due Goal Unhealthy drug use screening due Goal Taking Statin Medication. Du e on due Goal Diabetes screening. Due on due Goal CBC. Due on due Goal PAP. Due on due Goal ASCVD 10 year risk. Due on due Goal Influenza vaccine. Due on due Goal Tobacco Use Screening. Due o n due Goal FOBT. Due on due Goal Mammogram. Due on due Goal Generalized Anxi ety Disorder - 7 (BOLIVAR-7). Due on due Goal Hepatitis C Screening due Goal HPV. Due on due Goal Urine microalbumin. Due on due Goal Depression screening. Due on due Goal Pneumococcal vaccine due Goal Obtain blood Pressure. Due o n due Goal HPV testing. Due on due Goal Tobacco Use Cessation Counse ling. Due on due Goal TSH. Due on due Goal Lipid panel. Due on 028 due Goal Drug Abuse Scree charles Test (DAST-10). Due on due Goal GFR. Due on due Goal CMP. Due on due Goal Dilated eye exam. Due on Sep due Goal Urinalysis. Due on due Goal FIT. Due on due Goal Hep B (1st). Due on due Goal ECG. Due on due Goal Follow up Plan f or abnormal BMI (Less than 18.5, greater than 25). Due on due Goal Dental exam. Due on due Goal Vitamin D. Due on due Goal CMP. Due on due Goal Dilated eye exam. Due on Sep due Goal HPV testing. Due on due Goal Diabetes screening. Due on due Goal Influenza vaccine. Due on due Goal CBC. Due on due Goal ECG. Due on due Goal Pneumococcal vaccine due Goal PAP. Due on due Goal Tobacco Use Screening. Due o n due Goal ASCVD 10 year risk. Due on due Goal HIV screen. Due on due Goal Vitamin B12. Due on due Goal Hepatitis C Screening. Due o n due Goal Follow up Plan f or abnormal BMI (Less than 18.5, greater than 25). Due on due Goal Generalized Anxi ety Disorder - 7 (BOLIVAR-7). Due on due Goal Unhealthy drug use screening due Goal Hep B (1st). Due on due Goal Hemoglobin A1C. Due on due Goal Vitamin D. Due on due Goal Drug Abuse Scree charles Test (DAST-10). Due on due Goal Foot exam. Due on due Goal Dental exam. Due on due Goal Tobacco Use Cessation Counse ling. Due on due Goal FOBT. Due on due Goal Lipid panel. Due on due Goal Mammogram. Due on due Goal GFR. Due on due Goal TSH. Due on due Goal Obtain blood Pressure. Due o n due Goal HPV. Due on due Goal Urine microalbumin. Due on due Goal Depression screening. Due on due Goal Urinalysis. Due on due Goal Obtain Height, Weight, and B AR. Due on due Goal Taking Statin Medication. Du e on due Goal Colonoscopy. Due on due Goal Pap/HPV testing. Due on due Goal Urinalysis. Due on due Goal HIV screen. Due on due Goal Vitamin D. Due on due Goal GFR. Due on due Goal Generalized Anxi ety Disorder - 7 (BOLIVAR-7). Due on due Goal HPV. Due on due Goal PAP. Due on due Goal CMP. Due on due Goal Pneumococcal vaccine due Goal Colonoscopy. Due on due Goal Dental exam. Due on due Goal HPV testing. Due on due Goal Tobacco Use Cessation Counse ling. Due on due Goal FOBT. Due on due Goal Taking Statin Medication. Du e on due Goal Vitamin B12. Due on due Goal Dilated eye exam. Due on Sep due Goal Pap/HPV testing. Due on due Goal Hemoglobin A1C. Due on due Goal Diabetes screening. Due on due Goal Follow up Plan f or abnormal BMI (Less than 18.5, greater than 25). Due on due Goal Drug Abuse Scree charles Test (DAST-10). Due on due Goal Depression screening. Due on due Goal ASCVD 10 year risk. Due on due Goal Obtain blood Pressure. Due o n due Goal ECG. Due on due Goal TSH. Due on due Goal Foot exam. Due on due Goal Hepatitis C Screening. Due o n due Goal Tobacco Use Screening. Due o n due Goal CBC. Due on due Goal Unhealthy drug use screening due Goal Urine microalbumin. Due on due Goal Hep B (1st). Due on due Goal Mammogram. Due on due Goal Influenza vaccine. Due on due Goal Lipid panel. Due on due Goal Obtain Height, Weight, and B AR. Due on due Goal Foot exam. Due [...] due Goal Obtain Height, Weight, and B AR. Due on due Goal Depression screening. Due on due Goal Generalized Anxi ety Disorder - 7 (BOLIVAR-7). Due on due Goal Pap/HPV testing. Due on due Goal Lifestyle education regardin g diet completed Referral Referred To: [facility] Ordered: Referrals: Ophthalmology. [facility]. Location: [place]. Evaluate and treat Appointment date/timeframe: 12/20/2022 ordered Referral Referred To: [facility] Ordered: Referrals: Orthopedic Surgery. [facility]. Location: [place]. Evaluate and treat Appointment date/timeframe: 11/05/2022 ordered Referral Referred To: [facility] [address] [place], [phone] Ordered: Referrals: Bariatric Surgery. [facility]. Location: [facility]. Evaluate and treat Appointment date/timeframe: 1 Month ordered Referral Referred To: [facility] Ordered: Referrals: Radiotherapy. [facility]. Location: [place]. Diagnostic testing Appointment date/timeframe: 08/26/2022 ordered History [...] was-? Endoscopy- eferral made to bariatric/GI in [facility] on 08.20.22Shkim is to follow up on the referral and call [phone].SHe has had her mammo- 6.5.23 Bi-Rads Category 1- NegPap- partial hysterectomy he continues to see [facility] for therapy-Med management by Caitlyn Pendleton for sleep- states this is doing goodShe did not refill citalopram- I will send 1 month w/ refillTraci to mangae- next appt Dec 11. Site Damage Prevention Technician appt 8.4- will also see Derm on 8.14Rash on arms- has been there several monthstriamcinalone sent to pharm for nowMontelukast added by head charger [facility]ST[facility] LABS ANGÉLICA IS HERE TODAY FOR [...] to establish care.She was last seen in [place] by pcp whom manages her DM, hypothyroidism, hypercholesterol, HTN, anxiety/depression.SHe sees an head charger for multiple food and environmental allergies- Dr. [...] [facility]- [facility]- [facility], and 27Goes to [facility] for counsling only- will ask [...] an understanding.Referral for weight management made to [facility] Related to Obesity Counseled patients o n [...]
--- OUTSIDE RECORDS SUMMARY | 2024-12-15 15:10 | XMS_ITS | Clinical Summary ---
Author Organization [facility] Address [address] [place] [address] Care Team Providers Care Consolidator Name Role Phone Sonia Dumas Primary Care Provider [phone] Allergies Active Allergy Reactions Criticality Noted Date Comments Corylus Hives,Itching,Rash High 01/06/2023 Egg Solids, Whole Hives,Itching,Rash High 01/06/2023 Milk (Cow) Hives,Itching,Rash High 01/06/2023 Molds & Smuts Hives,Itching,Rash High 01/06/2023 Tomato Hives,Itching,Rash High 01/06/2023 [place] Hives,Itching,Rash High 01/06/2023 Medications aspirin 81 MG [...] a day. 4 Active ergocalciferol 1.25 MG (14500 UT) capsule Take 1 capsule (50,000 Units) [...] Noted Date Diagnosed Date Candidal intertrigo 12/25/2023 GERD (gastroesophageal reflux disease) 4 Seasonal allergies 12/25/2023 Left knee pain 08/04/2023 Anxiety and depression 01/21/2022 Arthritis 01/21/2022 Hyperlipidemia 01/21/2022 Hypertension 03/22/2021 Hypothyroidism 03/22/2021 Decreased glomerular filtration rate (GFR) 11/15 Edema, unspecified 09/04/2020 Morbid obesity 08/01/2020 Type 2 diabetes mellitus 07/31/2020 Obstructive sleep apnea syndrome 07/24/2020 Vitamin D deficiency 05/17/2020 Excessive sweating 12/17/2019 Menopausal and female climacteric states 020 Resolved Problems Problem Noted Date Diagnosed Date Resolved Date Cellulitis 12/25/2023 12/12/2024 Immunizations Immunization Administration Dates Next Due Hep [...] Health Maintenance Due Date Last Done Comments [facility]-Diabetes: Hemoglobin A1C 1970 [facility]-HIV Screening 1970 [facility]-Hepatitis C Screening 1970 [facility]-Infant/Child/Adol SDOH Screenings 1970 Diabetes: Dental Exam 1982 [facility]- SDOH Screenings 1990 [facility]-Adult SDOH Screenings 1990 [facility]-Hepatitis B Vaccines (1 of 3 - 19+ 3-dose series) 12/17/1991 CT Colonography 2017 Colonoscopy 2017 FIT-DNA 2017 FIT 2017 FOBT 2017 Sigmoidoscopy 2017 [facility]-Colorectal Cancer Screening 2017 [facility]-Breast Cancer Screening 2022 11/11/2018 [id number] Vaccine ( season) 2024 12/27/2022, 12/24/2021, 08/09/2021, [...] EST Narrative [facility] - 02/11/2011 4:50 PM [facility] MR #: [id number] [facility] [place] [address] 1970 (Age: 40) FW Collect Date: 02/04/2011 00:00 Receipt Date: 02/05/2011 14:09 Page 1 DEPARTMENT OF PATHOLOGY AND LABORATORY MEDICINE CYTOPATHOLOGY REPORT Email: [email or web address] [phone] ATTENDING MD/Practitioner: Gregg Huerta MD Service: OBE Location: [facility] Reported: 02/11/2011 16:50 Collected: 02/04/2011 00:00 INTERPRETATION A. THIN PREP (CERVICAL/VAGINAL): NEGATIVE FOR INTRAEPITHELIAL LESION OR MALIGNANCY. SATISFACTORY FOR EVALUATION; TRANSFORMATION ZONE COMPONENT CANNOT BE DEFINITIVELY IDENTIFIED DUE TO THE PRESENCE OF ATROPHY OR OTHER HORMONAL CHANGES. Slide scanned and imaged by [employer] ThinPrep Imaging System with manual review of [...] results is suggested (please call Microbiology at [phone] for results). CLINICAL INFORMATION: Menstrual History: Other: absent Date of Last Menstrual Period: 09/2008 Contraceptive History: Hormonal Other Clinical Conditions: If ASCUS and > 24 years of age, HPV/DNA testing requested. SPECIMEN DESCRIPTION: A: THIN PREP (CERVICAL/VAGINAL) THIN PREP PROCESS CELLULAR ENHANCEMENT ICD: F: A; RT IMAGE [id number] SNOMED CODES: A; [id number] In cases where a pathologist has signed out the report, the service has been rendered in part by a resident. The signing pathologist has performed and is responsible for the reported pathologic evaluation. Nataliya Huerta MD LAB PATHOLOGY ORDERABLES Fin al Result [facility] from Last 3 Months or Most Recently Relevant to Health Maintenance Insurance [facility] MEDICAID Care Teams Consolidator Relationship Specialty Start Date End Date Sonia Dumas PA [address] [place] [address] PCP - General 02/02/24
== END 2024-12-15 23:59 | disposition home or self-care (01) ==
LOC: DIETICIAN 15:08
PROVIDERS: PCP Nurse Practitioner Family; Visit Provider Nurse Practitioner Family
DX: E11.649 Type 2 diabetes mellitus with hypoglycemia without coma (principal)
CPT/HCPCS: 97802

== ENCOUNTER 2024-12-20 11:00 | Outpatient (RCR) | payer MEDICAID, SELFPAY ==
--- NOTE | 2024-12-15 15:22 | HMH.RHREAS ---
Rehab Reassessment Rehab OP Re-assessment Start: 12/01/24 13:50 Freq: Status: Active Protocol: Document 12/15/24 15:06 ERICKSON (Rec: 12/15/24 15:21 PHORNICOLÁS [id number]) E-signed By Manoj Driscoll, PT Rehab Re-assessment Subjective Subjective Pt has no c/o pain in B LE at this time. She reports she is ambulating better and is scheduled for outpatient therapy for strengthening next week. Able to be present for 5 treatments since her last reassessment was performed. Objective Objective Notes TTP: 0/4 B lower legs Edema: 1+ pitting edema in B lower legs. L LE with continued MODERATE fibrotic edema. Erythema: Blanchable erythema is mild this date to B lower legs. LLIS: 67 this date vs 82 on IE. Assessment Progress Assessment Progressing as Expected Assessment Notes Pt continues to present with less palpable edema to B LE and is tolerating all compression well. She continues to need skilled therapy to reach independence with home lymphedema management and to continue to reduce overall B LE edema further in an effort to improve overall QOL. Lymphedema Patient Goals Lymphedema Short STG (2 wks) Pt will: Term Patient Goals 1) Decrease edema to no pitting edema to B lower legs 2) Decrease subjective c/o pain to 2/10 pain at worst in L lower leg 3) Decrease circumferential measurements in B LE total by 10 cm ea Lymphedema Jail LTG (4 wks) Pt will: Patient Goals 1) Decrease edema to MINIMAL fibrotic edema to B lower legs 2) Decrease subjective c/o pain to 0/10 pain L lower leg 3) Decrease circumferential measurements in B LE total by 15 cm ea 4) Decrease LLIS score to 60 or less 5) Be independent with home lymphedema management via HEP. Plan Plan Updated POC sent to provider for their continued input and approval. Continued pt treatment may include any or all of the following interventions in order to improve functional outcomes and aid pt improvement in QOL: Frequency of Therapy 2 x/wk Duration of Therapy 4 wks Therapeutic Exercise Yes Including Home Exercise Program Manual Therapy Yes Techniques Neuromuscular Re- Yes education Therapeutic Yes Activities to Return to Previous Functional/Work Level ADL/Self Care Yes Education Orthotics/Bracing/ Yes Splinting Manual Lymphatic Yes Drainage Eval/Re-Eval Yes Time and Billing Re-Eval Time 14 Re-Eval Billing 0 Units Charge for PT No reassessment? PHYSICIAN CERTIFICATION: I certify the specified therapy services for Yane Dual are required, authorized, and reviewed every 30 days.
== END 2024-12-20 23:59 | disposition home or self-care (01) ==
LOC: PT 11:00
PROVIDERS: PCP Nurse Practitioner Family; Visit Provider Nurse Practitioner Family
DX: I89.0 Lymphedema, not elsewhere classified (principal)
CPT/HCPCS: 97140

== ENCOUNTER 2024-12-20 13:45 | Outpatient (RCR) | payer MEDICAID, SELFPAY ==
--- NOTE | 2024-12-20 15:51 | HMH.PTOPEV ---
PT Evaluation Rehab PT Outpatient Evaluation Start: 12/20/24 13:58 Freq: Status: Active Protocol: Document 12/20/24 13:58 CONNOR (Rec: 12/20/24 15:50 CONNOR [id number]) E-signed By River Carson, PT Outpatient Therapy Subjective History Subjective History Pt is a 54 yof who is referred to [facility] outpatient PT with complaints of weakness. Pt presents this date with a rollator walker. Pt has been seeing PT for lymphedema. Pt reports that she was hospitalized due to low blood sugar in October and reports that her walking has been much more difficult since then. Pt reports that one of her main goals with PT is to be able to walk without a walker. Pt reports that she has had multiple falls in the past 6 months. Pt reports that she lives in an apartment with 1 JOAN. Pt reports that her swelling in her legs has been improving. Pt also reports that she had a consult with [facility] dietetics. PMH: morbid obesity, lymphedema, osteoarthritis, type 2 diabetes, anxiety and depression, recent history of gastric bypass New diagnosis of No cancer in past 12 months? Chief Complaint Weakness Symptoms Relieved By Nothing Current Functional Lifting,Housework,Standing,Squatting,Walking,Stairs, Limitations Balance Level of pain today 0 (0-10) Pain scale - at its 0 best (0-10) Pain scale - at its 0 worst (0-10) Dynamic Gait Index Test Protocol Gait Level Surface Mild Impairment Query Text: Instructions: Walk at your normal speed from here to the next criss (20'). Grading: Criss the lowest category that applies. Change in Gait Speed Moderate Impairment Query Text: Instructions: Begin walking at your normal pace (for 5') , when I tell you go , walk as fast as you can (for 5'). When I tell you slow , walk as slowly as you can ( for 5'). Grading: Criss the lowest category that applies. Gait with Horizontal Mild Impairment Head Turns Query Text: Instructions: Begin walking at your normal pace. When I tell you to look right , keep walking straight, but turn you head to the right. Keep looking to the right unit I tell you look left , then keep walking straight and turn your head to the left. Keep your head to the left until I tell you look straight , then keep walking straight, but return you head to the center. Grading: Criss the lowest category that applies. Gait with Vertical Moderate Impairment Head Turns Query Text: Instructions: Begin walking at your normal pace. When I tell you to look up , keep walking staight, but tip your head up. Keep looking up until I tell you to look down , then keep walking straight and tip your head down. Keep your head down until I tell you look straight , then keep walking straight, but return your head to the center. Grading: Criss the lowest category that applies. Gait and Pivot Turn Moderate Impairment Query Text: Instructions: Begin walking at your normal pace. When I tell you turn and stop , turn as quickly as you can to face the opposite direction and stop. Grading: Criss the lowest category that applies. Step Over Obstacle Moderate Impairment Query Text: Instructions: Begin walking at your normal speed. When you come to the shoebox, step over it, not around it and keep walking. Grading: Criss the lowest category that applies. Step Around Moderate Impairment Obstacles Query Text: Instructions: Begin walking at normal speed. When you come to the first cone (about 6' away) , walk around the right side of it. When you come to the second cone (6' past first cone), walk around it to the left. Grading: Criss the lowest category that applies. Steps Moderate Impairment Query Text: Instructions: Walk up these stairs as you would at home. At the top, turn around and walk down . Grading: Criss the lowest category that applies. Scoring Dynamic Gait Index 10 Score Miscellaneous Dx PT Eval Objective Objective TUs w rollator walker 5xSTS: 17s without UE support MMT: 3/5 to B LEs grossly Outpatient Therapy Assessment Impairments Problems/ Impaired Strength,Impaired Endurance,Impaired Gait Impairmments Pattern,Impaired Walking,Impaired Standing,Impaired Lifting,Impaired Household Care,Impaired Stair Climbing ,Impaired Squatting,Impaired Recreational Activities, Impaired Balance,Subjective C/O Pain,Impaired Self Care /Self Management Prognosis Rehab Potential Good Clinical Impression Consistent with Yes Diagnosis Consistent with Generalized Weakness Additional details: Pt demonstrates impaired DGI score, impaired TUG time, impaired muscle strength. PT Patient Goals PT Patient Goals PT Short Term In 4 weeks: Patient Goals 1. Pt will improve bilateral hip and knee strength to at least 3+/5 grossly upon MMT to better facilitate functional movement patterns, such as standing from a chair. 2. Pt will improve 5xSTS test to 15s to decrease fall risk, demonstrate improved endurance and to better align with age appropriate norms. 3. Pt will improve TUG time to 16s to demonstrate improved functional mobility and decreased fall risk. 4. Pt will improve DGI score to 13 to demonstrate a decreased fall risk and improved in-home and community mobility. 5. Pt will be able to stand for 15 minutes in order to prepare a small meal in her kitchen without requiring a rest break. 6. Pt will report HEP adherence by completing her prescribed HEP 4-5x/week. PT Compressed Gases Tester Patient In 8 weeks: Goals 1. Pt will improve bilateral hip and knee strength to at least 4/5 grossly upon MMT to better facilitate functional movement patterns, such as standing from a chair. 2. Pt will improve 5xSTS score to 12s to decrease fall risk, demonstrate improved endurance and to better align with age appropriate norms. 3. Pt will improve TUG time to 13s to demonstrate improved functional mobility and decreased fall risk. 4. Pt will improve DGI score to 16 to demonstrate a decreased fall risk and improved in-home and community mobility. 5. Pt will be able to stand for 30 minutes in order to prepare a larger meal in her kitchen without requiring a rest break. 6. Pt will be able to navigate a flight of stairs with a hand-rail, in order to demonstrate improved community mobility. Outpatient Therapy Plan of Care Treatment Plan May Include Therapeutic Exercise Yes Including Home Exercise Program Manual Therapy Yes Techniques Neuromuscular Re- Yes education Therapeutic Yes Activities to Return to Previous Functional/Work Level Gait Training Yes Manual Lymphatic Yes Drainage Wound Care Yes Eval/Re-Eval Yes Frequency Times per week 2 Duration Number of Weeks 8 Addendums This patient is a No candidate for social or vocational rehab ? Patient/Guardian Yes verbally acknowledges understanding of treatment program and consents to further treatment? Patient/Guardian Yes verbally acknowledges understanding of diagnosis, prognosis and goals for treatment? Eval Complexity PT Charges 86441 - High Complexity Shoulder/Elbow Eval Shoulder Objective Measurements Elbow Objective Measurements PHYSICIAN CERTIFICATION: I certify the specified therapy services for Yane Dual are required, authorized, and reviewed every 30 days.
== END 2024-12-20 23:59 | disposition home or self-care (01) ==
LOC: PT 13:45
PROVIDERS: Visit Provider Internal Medicine Adolescent Medicine
DX: R53.1 Weakness (principal)
CPT/HCPCS: 97163

== ENCOUNTER 2024-12-31 11:00 | Outpatient (RCR) | payer MEDICAID, SELFPAY | END 2024-12-31 23:59 | disposition home or self-care (01) | LOC: PT 11:00 | PROVIDERS: PCP Nurse Practitioner Family; Visit Provider Nurse Practitioner Family | DX: I89.0 Lymphedema, not elsewhere classified (principal) | CPT/HCPCS: 97140 ==

== ENCOUNTER 2025-01-21 14:00 | Outpatient (RCR) | payer MEDICAID, SELFPAY ==
--- NOTE | 2025-01-21 14:57 | HMH.RHREAS ---
Rehab Reassessment Rehab OP Re-assessment Start: 12/28/24 12:59 Freq: Status: Active Protocol: Document 01/21/25 13:53 CONNOR (Rec: 01/21/25 14:55 CONNOR [id number]) E-signed By River Carson PT Dynamic Gait Index Test Protocol Gait Level Surface Mild Impairment Query Text: Instructions: Walk at your normal speed from here to the next criss (20'). Grading: Criss the lowest category that applies. Change in Gait Speed Mild Impairment Query Text: Instructions: Begin walking at your normal pace (for 5') , when I tell you go , walk as fast as you can (for 5'). When I tell you slow , walk as slowly as you can ( for 5'). Grading: Criss the lowest category that applies. Gait with Horizontal Mild Impairment Head Turns Query Text: Instructions: Begin walking at your normal pace. When I tell you to look right , keep walking straight, but turn you head to the right. Keep looking to the right unit I tell you look left , then keep walking straight and turn your head to the left. Keep your head to the left until I tell you look straight , then keep walking straight, but return you head to the center. Grading: Criss the lowest category that applies. Gait with Vertical Mild Impairment Head Turns Query Text: Instructions: Begin walking at your normal pace. When I tell you to look up , keep walking staight, but tip your head up. Keep looking up until I tell you to look down , then keep walking straight and tip your head down. Keep your head down until I tell you look straight , then keep walking straight, but return your head to the center. Grading: Criss the lowest category that applies. Gait and Pivot Turn Moderate Impairment Query Text: Instructions: Begin walking at your normal pace. When I tell you turn and stop , turn as quickly as you can to face the opposite direction and stop. Grading: Criss the lowest category that applies. Step Over Obstacle Moderate Impairment Query Text: Instructions: Begin walking at your normal speed. When you come to the shoebox, step over it, not around it and keep walking. Grading: Criss the lowest category that applies. Step Around Mild Impairment Obstacles Query Text: Instructions: Begin walking at normal speed. When you come to the first cone (about 6' away) , walk around the right side of it. When you come to the second cone (6' past first cone), walk around it to the left. Grading: Criss the lowest category that applies. Steps Moderate Impairment Query Text: Instructions: Walk up these stairs as you would at home. At the top, turn around and walk down . Grading: Criss the lowest category that applies. Scoring Dynamic Gait Index 13 Score Rehab Re-assessment Subjective Subjective Pt reports that she feels much improved since her initial evaluation. Pt reports that she has much less trouble going up the step into her house. Pt reports that she feels much stronger. Pt reports that her balance is improved. She reports that her balance seems much improved, which she has noticed doing the exercises here and when walking at home. Pt reports that she continues to use the rollator walker for the majority of the time, reporting that she will occasionally walk throughout the house without any AD. Pt reports that she is able to stand for 20-30 minutes at a time. Pt reports that she would like to continue with PT. Objective Objective Notes DGI: 13 (10 on IE) 5xSTS: 14s (17s on IE) TUs with rollator walker (20s on IE) MMT: 3+/5 to B LEs grossly Assessment Progress Assessment Progressing as Expected Assessment Notes Pt presents this date for her first reassessment since her initial evaluation. Pt's treatment sessions have consisted of LE strengthening through both open and closed chain mechanisms, balance training, transfer training and endurance training. Pt is progressing well at this time, demonstrating improved times in the 5xSTS, improved TUG time, improved DGI score and improved LE strength. 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 Skilled PT remains indicated to further progress this pt and to meet her stated jail goals. PT Patient Goals PT Short Term In 4 weeks: Patient Goals 1. Pt will improve bilateral hip and knee strength to at least 3+/5 grossly upon MMT to better facilitate functional movement patterns, such as standing from a chair. MET 2. Pt will improve 5xSTS test to 15s to decrease fall risk, demonstrate improved endurance and to better align with age appropriate norms. MET 3. Pt will improve TUG time to 16s to demonstrate improved functional mobility and decreased fall risk. PROGRESSING 4. Pt will improve DGI score to 13 to demonstrate a decreased fall risk and improved in-home and community mobility. MET 5. Pt will be able to stand for 15 minutes in order to prepare a small meal in her kitchen without requiring a rest break. MET 6. Pt will report HEP adherence by completing her prescribed HEP 4-5x/week. MET PT Prison Patient In 8 weeks: NOT MET Goals 1. Pt will improve bilateral hip and knee strength to at least 4/5 grossly upon MMT to better facilitate functional movement patterns, such as standing from a chair. 2. Pt will improve 5xSTS score to 12s to decrease fall risk, demonstrate improved endurance and to better align with age appropriate norms. 3. Pt will improve TUG time to 13s to demonstrate improved functional mobility and decreased fall risk. 4. Pt will improve DGI score to 16 to demonstrate a decreased fall risk and improved in-home and community mobility. 5. Pt will be able to stand for 30 minutes in order to prepare a larger meal in her kitchen without requiring a rest break. 6. Pt will be able to navigate a flight of stairs with a hand-rail, in order to demonstrate improved community mobility. Plan Plan Continue as per initial POC, utilizing the following methods and activities. This progress note is being sent to the referring provider for an update on the pt's POC. Frequency of Therapy 2/week Duration of Therapy 4 weeks Therapeutic Exercise Yes Including Home Exercise Program Manual Therapy Yes Techniques Neuromuscular Re- Yes education Therapeutic Yes Activities to Return to Previous Functional/Work Level Gait Training Yes ADL/Self Care Yes Education Thermal Modalities Yes Electrical Yes Stimulation Massage Yes Manual Lymphatic Yes Drainage Eval/Re-Eval Yes Time and Billing Re-Eval Time 10 Re-Eval Billing 0 Units Charge for PT No reassessment? PHYSICIAN CERTIFICATION: I certify the specified therapy services for Yane Oconnor are required, authorized, and reviewed every 30 days.
== END 2025-01-21 23:59 | disposition home or self-care (01) ==
LOC: PT 14:00
PROVIDERS: PCP Nurse Practitioner Family; Visit Provider Internal Medicine Adolescent Medicine
DX: R53.1 Weakness (principal)
CPT/HCPCS: 97110; 97530